=== PATIENT | female | born 1965 | race Caucasian/White ===

== ENCOUNTER 2017-03-12 18:04 | Emergency (ER) | payer OTHER ==
[2017-03-12 18:13] VITALS: BP 175/133
[2017-03-12] MEDS ORDERED: Ketorolac INJ* 60 MG/2 ML VIAL IM ONE (19:08)
[2017-03-12] MEDS ORDERED: HYDROcodone/ACETAMIN 5-325 MG* 1 TAB PO ONE (19:08)
[2017-03-12] MEDS ORDERED: metroNIDAZOLE TAB* 250 MG PO ONE (19:10)
[2017-03-12] MEDS ORDERED: Ciprofloxacin TAB* 500 MG PO ONE (19:10)
--- NOTE | 2017-03-12 19:16 | ED ---
Throat Pain/Nasal Congestion - HPI Summary HPI Summary: Patient presents with dental pain. She was seen at [facility] but due to the extent of her decay they were unable to help other than placing her on arithromycin, which is giving her diarrhea. She is using 800mg of ibuprofen every 4 hours without relief of pain. She was referred to an oral surgeon who she will see in 6 days on March 18 for definitive treatment. She denies fever , chills or drainage. She is able to drink fluids and eat soft foods. - History of Current Complaint Chief Complaint: EDDentalPain Time Seen by Provider: 03/12/17 18:17 Hx Obtained From: Patient Onset/Duration: Gradual Onset, Lasting Weeks, Worse Since - this week Severity: Severe Associated Signs And Symptoms: Positive: Negative Cough: None PMH/Surg Hx/FS Hx/Imm Hx Previously Healthy: Yes Infectious Disease History: No Infectious Disease History: Denies: Traveled Outside the [place] in Last 30 Days - Family History Known Family History: Positive: None - Social History Occupation: Unemployed Lives: With Family Alcohol Use: None Substance Use Type: Reports: None Smoking Status (MU): Current Every Day Smoker Cessation Counseling: Patient Advised to Stop Review of Systems Negative: Fever, Chills Positive: Dental Pain. Negative: Sore Throat, Ear Ache All Other Systems Reviewed And Are Negative: Yes Physical Exam Triage Information Reviewed: Yes Vital Signs On Initial Exam: Initial Vitals Temp Pulse Resp BP Pulse Ox 98.8 F 127 18 175/133 99 03/12/17 18:07 03/12/17 18:07 03/12/17 18:07 03/12/17 18:07 03/12/17 18:07 Vital Signs Reviewed: Yes Appearance: Positive: Well-Appearing, Well-Nourished, Pain Distress Skin: Positive: Warm, Skin Color Reflects Adequate Perfusion, Dry, Soft Head/Face: Positive: Normal Head/Face Inspection Eyes: Positive: EOMI, MARINA, Conjunctiva Clear ENT: Positive: Hearing grossly normal, Pharynx normal, TMs normal Dental: Positive: Percussion Tenderness @ - right lower molar, Gross Decay/ Caries @ Neck: Positive: Supple, Nontender, No Lymphadenopathy Respiratory/Lung Sounds: Positive: Breath Sounds Present Cardiovascular: Positive: RRR Musculoskeletal: Negative: Edema Left, Edema Right Neurological: Positive: Sensory/Motor Intact, Alert, Oriented to Person Place, Time, CN Intact II-III, NV Bundle Intact Distally Psychiatric: Positive: Affect/Mood Appropriate AVPU Assessment: Alert Diagnostics - Vital Signs Vital Signs Temp Pulse Resp BP Pulse Ox 03/12/17 18:07 98.8 F 127 18 175/114 99 - Laboratory Lab Statement: Any lab studies that have been ordered have been reviewed, and results considered in the medical decision making process. EENT Course/Dx - Differential Diagnoses Differential Diagnoses: Dental Abscess, Dental Caries, Fractured Tooth, Gingivitis, Kirk's Angina, Odontogenic Pain, Periodontic Abscess, Periodontic Disease, Peritonsillar Ulcer - Diagnoses Provider Diagnoses: Dental infection Discharge - Discharge Plan Condition: Stable Disposition: HOME Prescriptions: Ciprofloxacin TAB* [Cipro 500 MG TAB*] 500 mg PO BID #13 tab HYDROcodone/ACETAMIN 5-325 MG* [[place] 5-325 TAB*] 1 tab PO Q8H PRN #6 tab MDD 3 PRN Reason: Pain metroNIDAZOLE TAB* [Flagyl 250 mg TAB*] 500 mg PO TID #40 tab Patient Education Materials: Toothache (ED) Additional Instructions: Please stop taking the arithromycin and begin using the cipro and flagyl as prescribed. Continue taking 800mg of ibuprofen only three times daily with meals tomorrow evening. Follow-up with the oral surgeon as directed or return to the emergency department if symptoms worsen.
== END 2017-03-12 19:51 | disposition home or self-care (01) ==
LOC: ED 18:04
DX: K08.89 Other specified disorders of teeth and supporting structures (principal); K04.7 Periapical abscess without sinus; F17.210 Nicotine dependence, cigarettes, uncomplicated
CPT/HCPCS: 96372; 99282; A9270-GY; J1885

== ENCOUNTER 2017-03-26 15:20 | Emergency (ER) | payer OTHER ==
[2017-03-26 16:48] LABS: Urine Bilirubin Negative (Negative); Urine Glucose 1+(50 mg/dL) (Negative); Urine Nitrite Negative (Negative)
[2017-03-26 18:02] LABS: Hematocrit 41 % (35-47); Hemoglobin 13.4 g/dl (12.0-16.0); Mean Corpuscular HGB Conc 33 g/dl (31-36); Mean Corpuscular Hemoglobin 29 pg (27-31); Mean Corpuscular Volume 89 fL (80-97); Mean Platelet Volume 10 um3 (7.4-10.4); Red Blood Count 4.62 10^6/ul (4.0-5.4); Red Cell Distribution Width 14 % (10.5-15)
[2017-03-26] MEDS ORDERED: Ondansetron INJ* 2 MG/ML VIAL IV ONE ×2 (18:12→20:16)
[2017-03-26] MEDS ORDERED: NS 0.9% 1000 ML* 1,000 ML IV ONE (18:12)
[2017-03-26] MEDS ORDERED: HYDROmorphone* 1 MG/ML 1 ML SYR IV ONE ×2 (18:12→20:16)
[2017-03-26 18:24] LABS: BUN/Creatinine Ratio 21.8 (8-20); C Reactive Protein 3.77 mg/L (< 5.00); Calcium 9.1 mg/dL (8.6-10.3); EGFR African American 148.7 (>60); EGFR Non-African American 115.6 (>60); Potassium 4.1 mmol/L (3.5-5.0); Total Bilirubin 0.2 mg/dL (0.2-1.0)
[2017-03-26] MEDS ORDERED: Iohexol 300* (CONTRAST) 10 ML SDV IV ONE (20:07)
[2017-03-26] MEDS ORDERED: Pantoprazole IV* 40 MG IV ONE (20:16)
[2017-03-26] MEDS ORDERED: Iodixanol* (CONTRAST) 320 MG/ML 100 ML SDV IV ONE (20:35)
--- NOTE | 2017-03-26 21:04 | RAD ---
INDICATION: Left upper quadrant abdominal pain. COMPARISON: There are no prior studies available for comparison. TECHNIQUE: A CT scan of the abdomen and pelvis was performed with intravenous and oral contrast following intravenous injection of 74 ml of Visipaque 320 nonionic contrast. Contiguous axial sections were obtained from the lung bases through the symphysis pubis. Images were reconstructed in the coronal and sagittal planes. FINDINGS: There is mild dependent bilateral lower lobe subsegmental atelectasis. No pleural effusion is present. The liver and spleen are normal in size without significant focal abnormality. The patient is status post cholecystectomy. The pancreas appears to be within normal limits. The kidneys and adrenal glands are normal in size. No hydronephrosis is seen. No significant focal renal abnormality is seen. The aorta is normal in caliber and demonstrates homogeneous contrast opacification. No significant enlarged retroperitoneal lymph nodes are seen. The stomach is distended with contrast. The small bowel and colon are nondistended. The appendix is within normal limits. There is mild to moderate descending and sigmoid diverticulosis without evidence for diverticulitis. The patient appears to be status post cholecystectomy. No free intraperitoneal air or fluid is seen. No significant focal osseous abnormality is seen. IMPRESSION: NO EVIDENCE FOR ACUTE FINDING OR CAUSE FOR THE PATIENT'S ABDOMINAL PAIN IS SEEN.
[2017-03-26] MEDS ORDERED: oxyCODONE/Acetamin 5/325 MG* TAB PO ONE ×2 (21:31→23:00)
--- NOTE | 2017-03-26 22:47 | ED ---
Shoaib Car Aidan, scribed for Golden Escobar MD on 03/26/17 at 1925 . Abdominal Pain/Female - HPI Summary HPI Summary: 51 y/o female presents to the ED with a complaint of acute, constant, moderate ( 7/10) LUQ abdominal pain that began 3 days ago. The pain is aggravated by eating and drinking. Advil did not alleviate any of the pain. Associated symptoms include vomiting. Hx of gallbladder removal and hysterectomy. Pt mentions a Zofran and penicillin allergy. - History of Current Complaint Chief Complaint: EDAbdPain Stated Complaint: ABD PAIN,NAUSEA Time Seen by Provider: 03/26/17 17:47 Hx Obtained From: Patient ?: No Onset/Duration: Sudden Onset, Lasting Days, Still Present Timing: Constant Severity Initially: Moderate Severity Currently: Moderate Pain Intensity: 7 Pain Scale Used: 0-10 Numeric Location: Discrete At: LUQ Radiates: No Character: Sharp Aggravating Factor(s): Food - and drinking Alleviating Factor(s): Nothing - advil did not help Associated Signs and Symptoms: Positive: Vomiting Allergies/Adverse Reactions: Allergies Allergy/AdvReac Type Severity Reaction Status Date / Time Penicillins [PCN] Allergy Altered Verified 03/26/17 17:43 Mental Status Sulfa Antibiotics Allergy Hives Verified 03/26/17 17:43 PMH/Surg Hx/FS Hx/Imm Hx Infectious Disease History: No Infectious Disease History: Denies: Traveled Outside the [place] in Last 30 Days - Family History Known Family History: Positive: Hypertension - Social History Occupation: Unemployed Lives: With Family Alcohol Use: None Substance Use Type: Reports: None Smoking Status (MU): Current Every Day Smoker Review of Systems Constitutional: Negative Eyes: Negative ENT: Negative Cardiovascular: Negative Respiratory: Negative Positive: Abdominal Pain, Vomiting. Negative: Diarrhea, Nausea Genitourinary: Negative Musculoskeletal: Negative Skin: Negative Neurological: Negative Psychological: Normal All Other Systems Reviewed And Are Negative: Yes Physical Exam Triage Information Reviewed: Yes Vital Signs On Initial Exam: Initial Vitals Temp Pulse Resp BP Pulse Ox 97.7 F 92 18 170/91 100 03/26/17 15:22 03/26/17 15:22 03/26/17 15:22 03/26/17 15:22 03/26/17 15:22 Vital Signs Reviewed: Yes Appearance: Positive: Well-Appearing, No Pain Distress Skin: Positive: Warm, Skin Color Reflects Adequate Perfusion, Dry Head/Face: Positive: Normal Head/Face Inspection Eyes: Positive: Normal ENT: Positive: Normal ENT inspection Neck: Positive: Supple, Nontender Respiratory/Lung Sounds: Positive: Clear to Auscultation, Breath Sounds Present Cardiovascular: Positive: RRR Abdomen Description: Negative: Nontender - tender in epigastrium Bowel Sounds: Positive: Present Musculoskeletal: Positive: Normal Neurological: Positive: Normal Psychiatric: Positive: Affect/Mood Appropriate - [place] Coma Scale Coma Scale Total: 15 Diagnostics - Vital Signs Vital Signs Temp Pulse Resp BP Pulse Ox 03/26/17 18:41 20 03/26/17 18:00 88 100 03/26/17 17:45 84 99 03/26/17 17:43 159/90 03/26/17 17:42 98.3 F 81 18 159/90 99 03/26/17 16:58 97.7 F 86 18 140/96 100 03/26/17 15:22 97.7 F 92 18 170/91 100 - Laboratory Lab Results: Lab Results 03/26/17 03/26/17 03/26/17 Range/Units 16:40 17:50 17:50 WBC 9.0 (3.5-10.8) 10^3/ul RBC 4.62 (4.0-5.4) 10^6/ul Hgb 13.4 (12.0-16.0) g/dl Hct 41 (35-47) % MCV 89 (80-97) fL MCH 29 (27-31) pg MCHC 33 (31-36) g/dl RDW 14 (10.5-15) % Plt Count 213 (150-450) 10^3/ul MPV 10 (7.4-10.4) um3 Neut % (Auto) 71.4 (38-83) % Lymph % (Auto) 22.3 L (25-47) % Nolan % (Auto) 4.8 (1-9) % Eos % (Auto) 0.7 (0-6) % Baso % (Auto) 0.8 (0-2) % Absolute Neuts (auto) 6.4 (1.5-7.7) 10^3/ul Absolute Lymphs (auto) 2.0 (1.0-4.8) 10^3/ul Absolute Monos (auto) 0.4 (0-0.8) 10^3/ul Absolute Eos (auto) 0.1 (0-0.6) 10^3/ul Absolute Basos (auto) 0.1 (0-0.2) 10^3/ul Absolute Nucleated RBC 0.01 10^3/ul Nucleated RBC % 0.1 Sodium 140 (133-145) mmol/L Potassium 4.1 (3.5-5.0) mmol/L Chloride 109 (101-111) mmol/L Carbon Dioxide 24 (22-32) mmol/L Anion Gap 7 (2-11) mmol/L BUN 12 (6-24) mg/dL Creatinine 0.55 (0.51-0.95) mg/dL Est GFR ( Amer) 148.7 (>60) Est GFR (Non-Af Amer) 115.6 (>60) BUN/Creatinine Ratio 21.8 H (8-20) Glucose 210 H (70-100) mg/dL Lactic Acid (0.5-2.0) mmol/L Calcium 9.1 (8.6-10.3) mg/dL Total Bilirubin 0.20 (0.2-1.0) mg/dL AST 11 L (13-39) U/L ALT 14 (7-52) U/L Alkaline Phosphatase 97 (34-104) U/L C-Reactive Protein 3.77 (< 5.00) mg/L Total Protein 7.0 (6.4-8.9) g/dL Albumin 4.0 (3.2-5.2) g/dL Globulin 3.0 (2-4) g/dL Albumin/Globulin Ratio 1.3 (1-3) Lipase 78 (11.0-82.0) U/L Urine Color Yellow Urine Appearance Clear Urine pH 8.0 (5-9) Ur Specific Carlton 1.013 (1.010-1.030) Urine Protein Negative (Negative) Urine Ketones Negative (Negative) Urine Blood Negative (Negative) Urine Nitrate Negative (Negative) Urine Bilirubin Negative (Negative) Urine Urobilinogen Negative (Negative) Ur Leukocyte Esterase Negative (Negative) Urine Glucose 1+(50 mg/dl) H (Negative) 03/26/17 Range/Units 17:50 WBC (3.5-10.8) 10^3/ul RBC (4.0-5.4) 10^6/ul Hgb (12.0-16.0) g/dl Hct (35-47) % MCV (80-97) fL MCH (27-31) pg MCHC (31-36) g/dl RDW (10.5-15) % Plt Count (150-450) 10^3/ul MPV (7.4-10.4) um3 Neut % (Auto) (38-83) % Lymph % (Auto) (25-47) % Nolan % (Auto) (1-9) % Eos % (Auto) (0-6) % Baso % (Auto) (0-2) % Absolute Neuts (auto) (1.5-7.7) 10^3/ul Absolute Lymphs (auto) (1.0-4.8) 10^3/ul Absolute Monos (auto) (0-0.8) 10^3/ul Absolute Eos (auto) (0-0.6) 10^3/ul Absolute Basos (auto) (0-0.2) 10^3/ul Absolute Nucleated RBC 10^3/ul Nucleated RBC % Sodium (133-145) mmol/L Potassium (3.5-5.0) mmol/L Chloride (101-111) mmol/L Carbon Dioxide (22-32) mmol/L Anion Gap (2-11) mmol/L BUN (6-24) mg/dL Creatinine (0.51-0.95) mg/dL Est GFR ( Amer) (>60) Est GFR (Non-Af Amer) (>60) BUN/Creatinine Ratio (8-20) Glucose (70-100) mg/dL Lactic Acid 1.8 (0.5-2.0) mmol/L Calcium (8.6-10.3) mg/dL Total Bilirubin (0.2-1.0) mg/dL AST (13-39) U/L ALT (7-52) U/L Alkaline Phosphatase (34-104) U/L C-Reactive Protein (< 5.00) mg/L Total Protein (6.4-8.9) g/dL Albumin (3.2-5.2) g/dL Globulin (2-4) g/dL Albumin/Globulin Ratio (1-3) Lipase (11.0-82.0) U/L Urine Color Urine Appearance Urine pH (5-9) Ur Specific Carlton (1.010-1.030) Urine Protein (Negative) Urine Ketones (Negative) Urine Blood (Negative) Urine Nitrate (Negative) Urine Bilirubin (Negative) Urine Urobilinogen (Negative) Ur Leukocyte Esterase (Negative) Urine Glucose (Negative) Result Diagrams: 03/26/17 17:50 03/26/17 17:50 Lab Statement: Any lab studies that have been ordered have been reviewed, and results considered in the medical decision making process. - EKG EKG 1638 Cardiac Rate: NL - 83 BPM EKG Rhythm: Sinus Rhythm EKG Interpretation: SINUS RHYTHM Abdominal Pain Fem Course/Dx - Course Course Of Treatment: This is a 51 y/o female with tenderness in the epigastrium who reports LUQ adbominal pain and vomiting. No source for the pain was identified with labs and CT. I will treat her symptomatically and encourage close F/U. - Diagnoses Provider Diagnoses: Abdominal pain Discharge - Discharge Plan Condition: Stable Disposition: HOME Discharge Disposition Comment: Please follow up with your primary care provider within 2 days. Prescriptions: oxyCODONE/Acetamin 5/325 MG* [Percocet 5/325 TAB*] 1 tab PO Q6H PRN #20 tab MDD 4 PRN Reason: Pain Patient Education Materials: Abdominal Pain (ED) Referrals: No Primary Care Phys,NOPCP [Primary Care Provider] - The documentation as recorded by the Shoaib phan Aidan accurately reflects the service I personally performed and the decisions made by me, Golden Escobar MD.
[2017-03-26 23:18] VITALS: BP 168/92
== END 2017-03-26 23:15 | disposition home or self-care (01) ==
LOC: ED 15:20
DX: R10.12 Left upper quadrant pain (principal); F17.210 Nicotine dependence, cigarettes, uncomplicated; R11.10 Vomiting, unspecified
CPT/HCPCS: 36415; 74177; 80053; 81003; 83605; 83690; 85025; 86140; 93005; 96361; 96374; 96375; 99284; A9270-GY; J1170; J2405; Q9967

== ENCOUNTER 2017-04-09 21:30 | Emergency (ER) | payer OTHER ==
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
[2017-04-10 00:07] LABS: Urine Bacteria 1+ (Absent); Urine Bilirubin Negative (Negative); Urine Glucose 3+(>=500 mg/dL) (Negative); Urine Nitrite Negative (Negative)
[2017-04-10] MEDS ORDERED: Ondansetron ODT TAB* 4 MG SL ONE (00:09)
[2017-04-10] MEDS ORDERED: Ketorolac INJ* 60 MG/2 ML VIAL IM ONE (00:09)
[2017-04-10 01:40] VITALS: BP 125/77
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
== END 2017-04-10 01:40 | disposition home or self-care (01) ==
LOC: ED 21:30
DX: R51 Headache (principal); R31.9 Hematuria, unspecified; M54.9 Dorsalgia, unspecified; F17.210 Nicotine dependence, cigarettes, uncomplicated; T14.8 Other injury of unspecified body region; V49.9XXA Car occupant (driver) (passenger) injured in unspecified traffic accident, initial encounter; Y93.9 Activity, unspecified; Y92.9 Unspecified place or not applicable
CPT/HCPCS: 70450; 72170; 76775; 81003; 81015; 87086; 96372; 99282; A9270-GY; J1885

== ENCOUNTER → 2017-05-23 11:25 | Emergency (ER) | payer OTHER ==
[~2017-05-23 11:25] MED LIST: Ciprofloxacin 400MG IVPREMIX(* 400 MG/200 ML BAG IVPB ONE; HYDROmorphone* 1 MG/ML 1 ML SYR IV ONE; HYDROmorphone* 1 MG/ML 1 ML SYR IV SLOW PU ONE; HYDROmorphone* 1 MG/ML 1 ML SYR ONE; Ketorolac INJ* 30 MG/ML 1 ML VIAL IV ONE; NS 0.9% 1000 ML* 1,000 ML IV ONE; Ondansetron INJ* 2 MG/ML VIAL IV ONE; Phenazopyridine TAB* 100 MG PO ONE
--- NOTE | 2017-05-23 12:12 | RAD ---
INDICATION: Right flank pain. COMPARISON: Comparison is made with a prior CT of the abdomen and pelvis from March 26, 2017. TECHNIQUE: A CT scan of the abdomen and pelvis was performed without intravenous or oral contrast. Contiguous axial sections were obtained from the lung bases through the symphysis pubis. Images were reconstructed in the coronal and sagittal planes. FINDINGS: Images through the lung bases demonstrate a small 0.6 cm calcified nodule in the right lower lobe consistent with old granulomatous disease. The lung bases are otherwise clear. No pleural effusion is present. The liver and spleen are normal in size without significant focal abnormality. The patient is status post cholecystectomy. The pancreas appears to be within normal limits. The adrenal glands and kidneys are normal in size. No renal calculi or hydronephrosis is seen. There are multiple calcifications present bilaterally within the pelvis limiting the study although no definite ureteral or bladder calculi are seen. The aorta is normal in caliber without significant calcific plaque. No significant enlarged retroperitoneal lymph nodes are seen. The stomach is mildly distended with food debris. The small bowel and colon appear nondistended. The appendix is within normal limits. There is mild to moderate descending and sigmoid diverticulosis without evidence for diverticulitis. The patient appears to be status post hysterectomy. No free intraperitoneal air or fluid is seen. No significant focal osseous abnormality is seen. IMPRESSION: 1. NO EVIDENCE FOR ACUTE FINDING OR CAUSE FOR THE PATIENT'S ABDOMINAL PAIN IS SEEN. 2. STATUS POST CHOLECYSTECTOMY.
[2017-05-23 12:29] LABS: Hematocrit 37 % (35-47); Hemoglobin 12.4 g/dl (12.0-16.0); Mean Corpuscular HGB Conc 34 g/dl (31-36); Mean Corpuscular Hemoglobin 30 pg (27-31); Mean Corpuscular Volume 89 fL (80-97); Mean Platelet Volume 9 um3 (7.4-10.4); Red Blood Count 4.13 10^6/ul (4.0-5.4); Red Cell Distribution Width 13 % (10.5-15); White Blood Count 5.3 10^3/ul (3.5-10.8)
[2017-05-23 12:37] LABS: Urine Bacteria 1+ (Absent); Urine Bilirubin Negative (Negative); Urine Glucose 3+(>=500 mg/dL) (Negative); Urine Nitrite Negative (Negative)
[2017-05-23 12:45] LABS: Albumin 3.9 g/dL (3.2-5.2); BUN/Creatinine Ratio 22.6 (8-20); C Reactive Protein 5.07 mg/L (< 5.00); Calcium 9.1 mg/dL (8.6-10.3); EGFR African American 129.5 (>60); EGFR Non-African American 100.7 (>60); Globulin 3.1 g/dL (2-4); Potassium 3.7 mmol/L (3.5-5.0); Total Bilirubin 0.3 mg/dL (0.2-1.0)
[2017-05-23 16:46] VITALS: BP 166/93
--- NOTE | 2017-05-23 18:32 | ED ---
Cheyanne Car Alok, scribed for Golden Escobar MD on 05/23/17 at 1146 . Abdominal Pain/Female - HPI Summary HPI Summary: 51F presents to the ED with right flank pain. Pt states what began as back pain yesterday has transitioned to right flank pain. Her pain is worsened with sitting and improves when standing. Pt has been taking Tylenol for pain. Pt denies dysuria and states her BM have been normal. Pt has h/o kidney stones and states her pain feels similar to that. PSHx includes a hysterectomy and cholecystectomy. Pt notes she is scheduled for surgery to remove an angular of the left lung in three days. - History of Current Complaint Chief Complaint: EDFlankPain Stated Complaint: RT FLANK PAIN Time Seen by Provider: 05/23/17 11:34 Hx Obtained From: Patient Onset/Duration: Lasting Days, Still Present Timing: Constant Severity Initially: Moderate Severity Currently: Moderate Pain Intensity: 7 Pain Scale Used: 0-10 Numeric Location: Flank Aggravating Factor(s): Other: - Sitting position Alleviating Factor(s): Position, OTC Analgesics - Tylenol Associated Signs and Symptoms: Negative: Fever, Constipation, Urinary Symptoms Allergies/Adverse Reactions: Allergies Allergy/AdvReac Type Severity Reaction Status Date / Time Metoclopramide [From Reglan] Allergy Unknown Verified 04/09/17 21:41 Reaction Details Penicillins [PCN] Allergy Altered Verified 03/26/17 17:43 Mental Status Sulfa Antibiotics Allergy Hives Verified 03/26/17 17:43 PMH/Surg Hx/FS Hx/Imm Hx Endocrine/Hematology History: Reports: Hx Diabetes Sensory History: Denies: Hx Legally Blind, Hx Deafness Opthamlomology History: Denies: Hx Legally Blind - Surgical History Surgery Procedure, Year, and Place: cholecystectomy and right knee surgery Infectious Disease History: Denies: Traveled Outside the [place] in Last 30 Days - Family History Known Family History: Positive: Hypertension - Social History Occupation: Unemployed Lives: With Family Alcohol Use: None Substance Use Type: Reports: None Smoking Status (MU): Current Every Day Smoker Review of Systems Negative: Fever Positive: flank pain. Negative: dysuria All Other Systems Reviewed And Are Negative: Yes Physical Exam Triage Information Reviewed: Yes Vital Signs On Initial Exam: Initial Vitals Temp Pulse Resp BP Pulse Ox 97.1 F 110 17 174/90 98 05/23/17 11:27 05/23/17 11:27 05/23/17 11:27 05/23/17 11:27 05/23/17 11:27 Vital Signs Reviewed: Yes Appearance: Positive: Well-Appearing, No Pain Distress Skin: Positive: Warm, Skin Color Reflects Adequate Perfusion, Dry Head/Face: Positive: Normal Head/Face Inspection Eyes: Positive: Normal ENT: Positive: Normal ENT inspection Neck: Positive: Supple, Nontender Respiratory/Lung Sounds: Positive: Clear to Auscultation, Breath Sounds Present Cardiovascular: Positive: RRR Abdomen Description: Positive: Soft, Other: - Right flank tenderness Bowel Sounds: Positive: Present Musculoskeletal: Positive: Normal Neurological: Positive: Normal Psychiatric: Positive: Normal, Affect/Mood Appropriate Diagnostics - Vital Signs Vital Signs Temp Pulse Resp BP Pulse Ox 05/23/17 11:27 97.1 F 110 17 174/90 98 - Laboratory Lab Results: Lab Results 05/23/17 05/23/17 05/23/17 Range/Units 12:00 12:00 12:00 WBC 5.3 (3.5-10.8) 10^3/ul RBC 4.13 (4.0-5.4) 10^6/ul Hgb 12.4 (12.0-16.0) g/dl Hct 37 (35-47) % MCV 89 (80-97) fL MCH 30 (27-31) pg MCHC 34 (31-36) g/dl RDW 13 (10.5-15) % Plt Count 195 (150-450) 10^3/ul MPV 9 (7.4-10.4) um3 Neut % (Auto) 74.9 (38-83) % Lymph % (Auto) 19.3 L (25-47) % [place] % (Auto) 4.0 (1-9) % Eos % (Auto) 1.1 (0-6) % Baso % (Auto) 0.7 (0-2) % Absolute Neuts (auto) 3.9 (1.5-7.7) 10^3/ul Absolute Lymphs (auto) 1.0 (1.0-4.8) 10^3/ul Absolute Monos (auto) 0.2 (0-0.8) 10^3/ul Absolute Eos (auto) 0.1 (0-0.6) 10^3/ul Absolute Basos (auto) 0 (0-0.2) 10^3/ul Absolute Nucleated RBC 0 10^3/ul Nucleated RBC % 0.1 Sodium 136 (133-145) mmol/L Potassium 3.7 (3.5-5.0) mmol/L Chloride 105 (101-111) mmol/L Carbon Dioxide 27 (22-32) mmol/L Anion Gap 4 (2-11) mmol/L BUN 14 (6-24) mg/dL Creatinine 0.62 (0.51-0.95) mg/dL Est GFR ( Amer) 129.5 (>60) Est GFR (Non-Af Amer) 100.7 (>60) BUN/Creatinine Ratio 22.6 H (8-20) Glucose 366 H (70-100) mg/dL Lactic Acid (0.5-2.0) mmol/L Calcium 9.1 (8.6-10.3) mg/dL Total Bilirubin 0.30 (0.2-1.0) mg/dL AST 15 (13-39) U/L ALT 20 (7-52) U/L Alkaline Phosphatase 94 (34-104) U/L C-Reactive Protein 5.07 H (< 5.00) mg/L Total Protein 7.0 (6.4-8.9) g/dL Albumin 3.9 (3.2-5.2) g/dL Globulin 3.1 (2-4) g/dL Albumin/Globulin Ratio 1.3 (1-3) Lipase 51 (11.0-82.0) U/L Urine Color Yellow Urine Appearance Cloudy Urine pH 6.0 (5-9) Ur Specific [place] 1.024 (1.010-1.030) Urine Protein Negative (Negative) Urine Ketones Negative (Negative) Urine Blood 3+ H (Negative) Urine Nitrate Negative (Negative) Urine Bilirubin Negative (Negative) Urine Urobilinogen Negative (Negative) Ur Leukocyte Esterase Negative (Negative) Urine WBC (Auto) 2+(11-20/hpf) H (Absent) Urine RBC (Auto) 3+(>10/hpf) H (Absent) Ur Squamous Epith Cells Present H (Absent) Urine Bacteria 1+ H (Absent) Urine Glucose 3+(>=500 mg/dl) H (Negative) 06/25/17 Range/Units 12:00 WBC (3.5-10.8) 10^3/ul RBC (4.0-5.4) 10^6/ul Hgb (12.0-16.0) g/dl Hct (35-47) % MCV (80-97) fL MCH (27-31) pg MCHC (31-36) g/dl RDW (10.5-15) % Plt Count (150-450) 10^3/ul MPV (7.4-10.4) um3 Neut % (Auto) (38-83) % Lymph % (Auto) (25-47) % [place] % (Auto) (1-9) % Eos % (Auto) (0-6) % Baso % (Auto) (0-2) % Absolute Neuts (auto) (1.5-7.7) 10^3/ul Absolute Lymphs (auto) (1.0-4.8) 10^3/ul Absolute Monos (auto) (0-0.8) 10^3/ul Absolute Eos (auto) (0-0.6) 10^3/ul Absolute Basos (auto) (0-0.2) 10^3/ul Absolute Nucleated RBC 10^3/ul Nucleated RBC % Sodium (133-145) mmol/L Potassium (3.5-5.0) mmol/L Chloride (101-111) mmol/L Carbon Dioxide (22-32) mmol/L Anion Gap (2-11) mmol/L BUN (6-24) mg/dL Creatinine (0.51-0.95) mg/dL Est GFR ( Amer) (>60) Est GFR (Non-Af Amer) (>60) BUN/Creatinine Ratio (8-20) Glucose (70-100) mg/dL Lactic Acid 2.0 (0.5-2.0) mmol/L Calcium (8.6-10.3) mg/dL Total Bilirubin (0.2-1.0) mg/dL AST (13-39) U/L ALT (7-52) U/L Alkaline Phosphatase (34-104) U/L C-Reactive Protein (< 5.00) mg/L Total Protein (6.4-8.9) g/dL Albumin (3.2-5.2) g/dL Globulin (2-4) g/dL Albumin/Globulin Ratio (1-3) Lipase (11.0-82.0) U/L Urine Color Urine Appearance Urine pH (5-9) Ur Specific [place] (1.010-1.030) Urine Protein (Negative) Urine Ketones (Negative) Urine Blood (Negative) Urine Nitrate (Negative) Urine Bilirubin (Negative) Urine Urobilinogen (Negative) Ur Leukocyte Esterase (Negative) Urine WBC (Auto) (Absent) Urine RBC (Auto) (Absent) Ur Squamous Epith Cells (Absent) Urine Bacteria (Absent) Urine Glucose (Negative) Result Diagrams: 05/23/17 12:00 05/23/17 12:00 Lab Statement: Any lab studies that have been ordered have been reviewed, and results considered in the medical decision making process. - CT Abd/Pel CT CT Interpretation: Positive (See Comments) - IMPRESSION: 1. NO EVIDENCE FOR ACUTE FINDING OR CAUSE FOR THE PATIENT'S ABDOMINAL PAIN IS SEEN. 2. STATUS POST CHOLECYSTECTOMY. CT Interpretation Completed By: Radiologist Abdominal Pain Fem Course/Dx - Course Course Of Treatment: Ms. Simpson presented C/O severe right flank pain for about a day which started as back pain aind is now more in the front. She has a history of kidney stones and is concerned that this may be another. Her CT was negative and she had an infected urine. This seemed to me to be a pyelonephritis and I gave her fluids, antibiotics and pain medications. - Diagnoses Provider Diagnoses: Pyelonephritis Discharge - Discharge Plan Condition: Stable Disposition: HOME Prescriptions: Ciprofloxacin TAB* [Cipro Tab*] 500 mg PO BID #20 tab Patient Education Materials: Kidney Infection (ED) Referrals: Non Staff,Doctor [Primary Care Provider] - Additional Instructions: Please follow up with your primary care provider in 1-2 days. The documentation as recorded by the Cheyanne phan Alok accurately reflects the service I personally performed and the decisions made by me, Golden Escobar MD.
== END | disposition home or self-care (01) ==
LOC: ED 11:25
DX: N12 Tubulo-interstitial nephritis, not specified as acute or chronic (principal); R10.84 Generalized abdominal pain; F17.210 Nicotine dependence, cigarettes, uncomplicated
CPT/HCPCS: 36415; 74176; 80053; 81003; 81015; 83605; 83690; 85025; 86140; 87086; 96374; 96375; 99283; A9270-GY; J0744; J1170; J1885; J2405

== ENCOUNTER 2017-09-29 20:16 | Emergency (ER) | payer OTHER ==
[2017-09-29] MEDS ORDERED: Ketorolac INJ* 30 MG/ML 1 ML VIAL IM ONE (23:38)
[2017-09-29] MEDS ORDERED: Dexamethasone IV* 4 MG/ML 1 ML (4 MG) IM ONE (23:38)
[2017-09-29] MEDS ORDERED: HYDROcodone/ACETAMIN 5-325 MG* 1 TAB PO ONE (23:38)
[2017-09-29] MEDS ORDERED: Orphenadrine Citrate IV* 30 MG/ML 2 ML VIAL IM ONE (23:38)
--- NOTE | 2017-09-30 00:10 | ED ---
Back Pain - HPI Summary HPI Summary: 52 female presents to ED with complaints of sciatica flare/low back pain radiating down left leg and rash on back. Patient states rash was ~ 1 week ago and sciatica 2-3 days ago. Patient has had previous episodes of sciatica. Took ibuprofen, naproxen and tylenol without relief. States it is causing her to be off balance due to the pain. Denies weakness, numbness/tingling, saddle anesthesia, and bladder/bowel incontinence. Typical sciatica like pain. Also having anxiety from the pain. Patient also complains of an itchy rash on her back that began 1 week ago. No drainage, and states it reminds her of acne. No other rash elsewhere. No other complaints. No PMHx other than DM, HTN and high cholesterol. No recent trauma, injury, new soap, lotion or detergent. - History of Current Complaint Chief Complaint: EDGeneral Stated Complaint: RASH ON BACK Time Seen by Provider: 09/29/17 22:04 Hx Obtained From: Patient Onset/Duration: Sudden Onset, Lasting Days, Lasting Weeks, Still Present, Worse Since Onset/Duration: Started Days Ago, Still Present Back Pain Location: Is Discrete @ - low back left side and left leg Severity Initially: Mild Severity Currently: Moderate Pain Intensity: 6 Pain Scale Used: 0-10 Numeric Character: Sharp, Aching, Spasmodic Aggravating Symptom(s): Movement, Other - sitting Alleviating Symptom(s): Rest, Nothing Associated Signs And Symptoms: Positive: Negative. Negative: Swelling, Bruising , Weakness, Numbness, Tingling, Abdominal Pain, Flank Pain, Bladder Incontinence , Bowel Incontinence - Risk Factors AAA Risk Factors: Smoking, Hypertension, Atherosclerosis TAD Risk Factors: Smoking Cauda Equina Risk Factors: Negative Epidural Abscess Risk Factors: Negative - Allergies/Home Medications Allergies/Adverse Reactions: Allergies Allergy/AdvReac Type Severity Reaction Status Date / Time Metoclopramide [From Reglan] Allergy Unknown Verified 04/09/17 21:41 Reaction Details Penicillins [PCN] Allergy Altered Verified 03/26/17 17:43 Mental Status Sulfa Antibiotics Allergy Hives Verified 03/26/17 17:43 PMH/Surg Hx/FS Hx/Imm Hx Endocrine/Hematology History: Reports: Hx Diabetes Cardiovascular History: Reports: Hx Hypercholesterolemia, Hx Hypertension Respiratory History: Denies: Hx Asthma Musculoskeletal History: Reports: Hx Arthritis, Other Musculoskeletal History - sciatica Sensory History: Denies: Hx Legally Blind, Hx Deafness Opthamlomology History: Denies: Hx Legally Blind - Surgical History Surgery Procedure, Year, and Place: cholecystectomy and right knee surgery - Immunization History Immunizations Up to Date: Yes Infectious Disease History: No Infectious Disease History: Denies: Traveled Outside the [place] in Last 30 Days - Family History Known Family History: Positive: None, Hypertension - Social History Alcohol Use: None Substance Use Type: Reports: None Smoking Status (MU): Current Every Day Smoker Review of Systems Constitutional: Negative Cardiovascular: Negative Respiratory: Negative Gastrointestinal: Negative Positive: Arthralgia, Myalgia - low back Positive: Rash Neurological: Negative Positive: Anxious All Other Systems Reviewed And Are Negative: Yes Physical Exam Triage Information Reviewed: Yes Vital Signs On Initial Exam: Initial Vitals Temp Pulse Resp BP Pulse Ox 98 F 98 18 162/88 92 09/29/17 20:53 09/29/17 20:53 09/29/17 20:53 09/29/17 20:53 09/29/17 20:53 Vital Signs Reviewed: Yes Appearance: Positive: Well-Appearing, Well-Nourished, Pain Distress - moderate Skin: Positive: Warm, Skin Color Reflects Adequate Perfusion, Dry, Erythema @ - erythematous pustules diffuse scattered and raised on back and under breasts appears like staph. some with white colored center, no drainage. rest of skin exam normal. Negative: Cold, Tender, Cyanosis @, Diaphoretic Head/Face: Positive: Normal Head/Face Inspection Eyes: Positive: Conjunctiva Clear ENT: Positive: Hearing grossly normal Neck: Positive: Supple, Nontender Respiratory/Lung Sounds: Positive: Clear to Auscultation, Breath Sounds Present. Negative: Rales, Rhonchi, Wheezes Cardiovascular: Positive: Normal, RRR, Pulses are Symmetrical in both Upper and Lower Extremities - 2+ radial/pedal. Negative: Murmur, Rub Abdomen Description: Positive: Nontender, No Organomegaly, Soft. Negative: CVA Tenderness (R), CVA Tenderness (L), Peritoneal Signs Bowel Sounds: Positive: Present Musculoskeletal: Positive: Normal, Limited @ - with flexion left LE due to pain however able and strength 5/5. rest of strength/ROM normal and intact, Pain @ - palpation left lower lumbar spine L2-L5 radiating down into left gluteal region and down left LE, Other - no crepitus edema or ecchymosis. Negative: Interruption @, Edema Left, Edema Right Neurological: Positive: Normal, Sensory/Motor Intact, Alert, Oriented to Person Place, Time, CN Intact II-III, Reflexes Intact, NV Bundle Intact Distally, Normal Gait - off balance due to pain and favoring right side however improved once pain under control - [place] Coma Scale Coma Scale Total: 15 Diagnostics - Vital Signs Vital Signs Temp Pulse Resp BP Pulse Ox 09/29/17 20:53 98 F 98 18 162/88 92 - Laboratory Lab Statement: Any lab studies that have been ordered have been reviewed, and results considered in the medical decision making process. Re-Evaluation - Re-Evaluation First Eval Re-Evaluation Time: 00:31 Change: Improved - had relief after medication Back Pain Course/Dx - Course Course Of Treatment: due to known sciatica and no new injury/trauma no imaging was required at this time. pain was treated and patient had significant relief. rash appears to be staph. will treat with keflex and good hygeine. culture pending. follow up with pcp. aware of worsening signs and symptoms and to return if occur. will send home with pain management. no concern for any other emergent etiology at this time. - Diagnoses Differential Diagnosis/HQI/PQRI: Positive: Strain, Sprain, Other - sciatica, dermatitis, acne vulgaris, staph infection, MRSA Provider Diagnoses: Staph skin infection, Sciatica Discharge - Discharge Plan Condition: Stable Disposition: HOME Prescriptions: Cephalexin CAP* [Keflex CAP*] 500 mg PO TID #30 cap HYDROcodone/ACETAMIN 5-325 MG* [[place] 5-325 TAB*] 1 tab PO Q4H PRN #15 tab MDD 3 PRN Reason: Pain Methocarbamol TAB* [Robaxin 500 MG TAB*] 500 mg PO TID PRN #20 tab PRN Reason: Spasms predniSONE TAB* [Deltasone TAB*] 20 mg PO DAILY #1 tab Patient Education Materials: Sciatica (ED), Lower Back Exercises (ED), Dermatitis (ED), Acne (ED) Referrals: Ceasar Leigh MD [Primary Care Provider] - Additional Instructions: Take prescribed medication to help with pain and rash. Supplement with naproxen only as needed every 6-12 hours. Rest, apply heat/ice. Stretches, slowly, using pain as your guide. Good hygiene for rash. Avoid scratching. Wash hands frequently. You will hear about culture results if positive and once obtained. Follow up with PCP. Any new or worsening symptoms please seek medical attention promptly.
[2017-09-30 00:47] VITALS: BP 99/74
== END 2017-09-30 00:46 | disposition home or self-care (01) ==
LOC: ED 20:16
DX: L08.9 Local infection of the skin and subcutaneous tissue, unspecified (principal); B95.8 Unspecified staphylococcus as the cause of diseases classified elsewhere; M54.42 Lumbago with sciatica, left side; E11.9 Type 2 diabetes mellitus without complications; I10 Essential (primary) hypertension; E78.00 Pure hypercholesterolemia, unspecified; Z88.2 Allergy status to sulfonamides; Z88.0 Allergy status to penicillin; F17.200 Nicotine dependence, unspecified, uncomplicated
CPT/HCPCS: 87070; 87205; 96372; 99282; J1100; J1885; J2360

== ENCOUNTER 2018-08-28 21:58 | Emergency (ER) | payer OTHER ==
--- NOTE | 2018-08-28 23:09 | ED ---
GI/ HPI - HPI Summary HPI Summary: Pt. is a 53 y.o female who presents to the ER for vaginal itching and irritation x 2 weeks. Pt. is an insulin dependent diabetic. Pt. states she has been using OTC vagisil without relief. She also notes low back spasms. She denies fever, chills, abd. pain, N/V. Pt. also notes she currently does not have a PCP because she disagreed with her last PCP. Pt. states she does currently have insulin. Symptoms are mild in severity. Urinating and touching affected area makes symptoms worse. Nothing makes symptoms better. - History of Current Complaint Chief Complaint: EDUrogenitalProblems Time Seen by Provider: 08/28/18 22:40 Stated Complaint: ABD PAIN Hx Obtained From: Patient Pain Intensity: 4 - Allergy/Home Medications Allergies/Adverse Reactions: Allergies Allergy/AdvReac Type Severity Reaction Status Date / Time metoclopramide Allergy Unknown Unknown Verified 08/28/18 23:27 Reaction Details Sulfa (Sulfonamide Allergy Unknown Hives Verified 08/28/18 23:27 Antibiotics) Penicillins AdvReac Unknown Altered Verified 08/28/18 23:28 Mental Status PMH/Surg Hx/FS Hx/Imm Hx Previously Healthy: Yes Endocrine/Hematology History: Reports: Hx Diabetes Cardiovascular History: Reports: Hx Hypercholesterolemia, Hx Hypertension Respiratory History: Denies: Hx Asthma Musculoskeletal History: Reports: Hx Arthritis, Other Musculoskeletal History - sciatica Sensory History: Denies: Hx Legally Blind, Hx Deafness Opthamlomology History: Denies: Hx Legally Blind - Surgical History Surgery Procedure, Year, and Place: cholecystectomy and right knee surgery Infectious Disease History: No Infectious Disease History: Denies: Traveled Outside the [place] in Last 30 Days - Family History Known Family History: Positive: None, Hypertension - Social History Occupation: Unemployed Lives: With Family Alcohol Use: None Substance Use Type: Reports: None Smoking Status (MU): Current Every Day Smoker Review of Systems Constitutional: Negative Negative: Fever, Chills Gastrointestinal: Negative Negative: Abdominal Pain, Vomiting, Nausea Positive: other - vaginal itching Positive: Other - low back spams All Other Systems Reviewed And Are Negative: Yes Physical Exam Triage Information Reviewed: Yes Vital Signs On Initial Exam: Initial Vitals Temp Pulse Resp BP Pulse Ox 97.4 F 98 15 146/95 96 08/28/18 22:03 08/28/18 22:03 08/28/18 22:03 08/28/18 22:03 08/28/18 22:03 Vital Signs Reviewed: Yes Appearance: Positive: Well-Appearing - Pt. lying in bed in NAD. Skin: Positive: Warm, Dry Head/Face: Positive: Normal Head/Face Inspection Eyes: Positive: Normal, EOMI Neck: Positive: Supple Pelvic Exam: Positive: Other - Genital exam: Exam performed with female tech in room. Labia major bilaterally is erythematous and edematous. Very tender. Satellite lesions noted. No induration or fluctuance. Neurological: Positive: Normal, CN Intact II-III Psychiatric: Positive: Affect/Mood Appropriate Diagnostics - Vital Signs Vital Signs Temp Pulse Resp BP Pulse Ox 08/28/18 22:03 97.4 F 98 15 146/95 96 - Laboratory Lab Statement: Any lab studies that have been ordered have been reviewed, and results considered in the medical decision making process. GIGU Course/Dx - Course Course Of Treatment: Patient's exam is consistent with a yeast infection. Urinalysis is negative for infection but does show large glucose. Patient was given information on discharge patient's for the [facility] and the physician referral line and is to call tomorrow to schedule an appointment with PCP. She was given a dose of Diflucan and clotrimazole cream in the ER. Prescriptions provided. Advised to keep area clean and dry. To return to the ER symptoms change or worsen. - Diagnoses Differential Diagnoses - Female: Herpes, Urinary Tract Infection, Vaginitis Provider Diagnoses: Vaginal candidiasis Discharge - Sign-Out/Discharge Documenting (check all that apply): Patient Departure - Discharge Plan Condition: Good Disposition: HOME Prescriptions: Clotrimazole 1% VAGINAL CREAM* [Gyne-Lotrimin 1% VAGINAL CREAM*] 1 applic VAGINAL BID #60 tube Fluconazole [Diflucan 150 MG (NF)] 150 mg PO ONCE #1 tab Patient Education Materials: Yeast Infection (ED) Referrals: [facility] [Outside] [facility] [Outside] Additional Instructions: Schedule a follow up appointment with the [facility] Use cream as directed Take second diflucan pill on 08/31/18 Keep vaginal area clean and dry Return to ER if symptoms change or worsen - Billing Disposition and Condition Condition: GOOD Disposition: Home
[2018-08-28] MEDS ORDERED: Fluconazole 100 MG TAB* TAB PO ONE (23:14)
[2018-08-28 23:28] LABS: Urine Appearance Clear; Urine Blood 1+ (Negative); Urine Color Straw; Urine Ketones Negative (Negative); Urine Protein Negative (Negative); Urine Red Blood Cell Trace(0-2/hpf) (Absent); Urine Urobilinogen Negative (Negative); Urine White Blood Cell Trace(0-5/hpf) (Absent)
[2018-08-28] MEDS ORDERED: Clotrimazole 1% VAGINAL CREAM* 45 GM VAGINAL SCH (23:30)
[2018-08-28 23:53] VITALS: BP 142/88
== END 2018-08-28 23:52 | disposition home or self-care (01) ==
LOC: ED 21:58
DX: B37.3 Candidiasis of vulva and vagina (principal); R10.9 Unspecified abdominal pain; Z88.0 Allergy status to penicillin; F17.210 Nicotine dependence, cigarettes, uncomplicated
CPT/HCPCS: 81003; 81015; 87086; 99282; A9270-GY

== ENCOUNTER 2018-10-14 23:34 | Inpatient (IN) | payer OTHER ==
[2018-10-14] MEDS ORDERED: NS 0.9% 1000 ML*IV.FLUID IV ONE (23:53)
--- NOTE | 2018-10-15 00:01 | ED ---
Complex/Multi-Sys Presentation - HPI Summary HPI Summary: This patient is a 53 year old F presenting to [facility] with a chief complaint of hallucinations and general weakness that she believes is due to a new BP medication (Clonidine) [employer]. The patient has also fallen and is experiencing back pain. Patient is experiencing sore throat Patient denies headache. Patient reports nausea, denies vomiting. Patient last took her medication yesterday morning. The patient rates her pain 6/10 in severity. - History Of Current Complaint Chief Complaint: EDGeneral Hx Obtained From: Patient Severity Currently: Mild Severity Initially: Mild Associated Signs And Symptoms: Positive: Weakness, Nausea, Back Pain. Negative : Vomiting - Allergies/Home Medications Allergies/Adverse Reactions: Allergies Allergy/AdvReac Type Severity Reaction Status Date / Time metoclopramide Allergy Unknown Unknown Verified 10/15/18 03:15 Reaction Details Sulfa (Sulfonamide Allergy Unknown Hives Verified 10/15/18 03:15 Antibiotics) Penicillins AdvReac Unknown Altered Verified 10/15/18 03:15 Mental Status Home Medications: Home Medications Bethanechol TAB* [Urecholine TAB*] 25 mg PO QID 10/15/18 [History Confirmed ] Buprenorp/Nalox 8-2 MG FILM [Suboxone 8 mg-2 mg Sl Film] 2.5 film PO DAILY 10/15 [History Confirmed 10/15/18] Cyclobenzaprine TAB* [Flexeril 10 MG TAB*] 10 mg PO TID PRN 10/15/18 [History Confirmed 10/15/18] FLUoxetine CAP* [PROzac CAP*] 40 mg PO DAILY 10/15/18 [History Confirmed ] Insulin Glargine,Hum.rec.anlog [Basaglar Kwikpen U-100] 60 units SUBCONJUNT BID 10/15/18 [History Confirmed 10/15/18] Insulin Lispro [Admelog] 10 units SUBCONJUNT TID 10/15/18 [History Confirmed ] Lidocaine PATCH 5%* [Lidoderm 5% Patch*] 1 patch TRANSDERM DAILY 10/15/18 [ History Confirmed 10/15/18] Lisinopril TAB* [Prinivil TAB*] 10 mg PO DAILY 10/15/18 [History Confirmed 10/15] Promethazine TAB* [Phenergan TAB*] 25 mg PO Q8H PRN 10/15/18 [History Confirmed 10/15/18] QUEtiapine TAB* [Seroquel 25 MG TAB*] 50 mg PO DAILY 10/15/18 [History Confirmed 10/15/18] Ranitidine TAB (NF) [Zantac TAB (NF)] 150 mg PO BID 10/15/18 [History Confirmed 10/15/18] Sucralfate TAB* [Carafate*] 1 gm PO TID 10/15/18 [History Confirmed 10/15/18] amLODIPine TAB* [Norvasc 5 mg TAB*] 10 mg PO DAILY 10/15/18 [History Confirmed 10/15/18] PMH/Surg Hx/FS Hx/Imm Hx Endocrine/Hematology History: Reports: Hx Diabetes Cardiovascular History: Reports: Hx Hypercholesterolemia, Hx Hypertension Respiratory History: Denies: Hx Asthma Musculoskeletal History: Reports: Hx Arthritis, Other Musculoskeletal History - sciatica Sensory History: Denies: Hx Legally Blind, Hx Deafness Opthamlomology History: Denies: Hx Legally Blind - Surgical History Surgery Procedure, Year, and Place: cholecystectomy and right knee surgery Infectious Disease History: No Infectious Disease History: Denies: Traveled Outside the [place] in Last 30 Days - Family History Known Family History: Positive: Hypertension - Social History Alcohol Use: None Substance Use Type: Reports: None Hx Tobacco Use: Yes Smoking Status (MU): Current Every Day Smoker Review of Systems Positive: Fatigue Positive: Sore Throat Positive: Nausea. Negative: Vomiting Positive: Myalgia - Back pain Positive: Weakness All Other Systems Reviewed And Are Negative: Yes Physical Exam - Summary Physical Exam Summary: Appearance: Well-appearing, Well-nourished, lying in bed comfortable. Skin: Warm, dry, no obvious rash Eyes: sclera anicteric, no conjunctival pallor ENT: mucous membranes dry. Neck: deferred Respiratory: No signs of respiratory distress Cardiovascular: Appears well perfused, pulses are nml. Tachycardic.Does not appear toxic. Abdomen: deferred Musculoskeletal: Moving all 4 extremities without obvious discomfort Neurological: Awake and alert, mentation is normal, speech is fluent and appropriate Psychiatric: affect is normal, does not appear anxious or depressed Triage Information Reviewed: Yes Vital Signs On Initial Exam: Initial Vitals Temp Pulse Resp BP Pulse Ox 100 F 141 22 157/89 94 10/14/18 23:38 10/14/18 23:38 10/14/18 23:38 10/14/18 23:38 10/14/18 23:38 Vital Signs Reviewed: Yes Diagnostics - Vital Signs Vital Signs Temp Pulse Resp BP Pulse Ox 10/14/18 23:38 100 F 141 22 157/89 94 - Laboratory Result Diagrams: 10/15/18 04:58 10/15/18 04:58 Lab Statement: Any lab studies that have been ordered have been reviewed, and results considered in the medical decision making process. - Radiology CXR Radiology Interpretation Completed By: ED Physician Summary of Radiographic Findings: Unremarkable for Cardiopulmonary disease. Awaiting official radiologist report. - EKG 5761 Cardiac Rate: Tachycardia - 134 BPM EKG Rhythm: Sinus Rhythm ST Segment: Normal Complex Multi-Symp Course/Dx Course Of Treatment: This patient is a 53 year old F presenting to [facility] with a chief complaint of hallucinations and general weakness [employer]. Examination was remarkable for sepsis. Dr. Duarte, Hospitalist was consulted at 0132 and came to see the patient in the ED and then recommended admission to [facility]. This plan for admission and treatment was discussed with the patient and the patient was agreeable with this plan. - Diagnoses Provider Diagnoses: Sepsis, Tachycardia - Physician Notifications Discussed Care Of Patient With: Manny Duarte Time Discussed With Above Provider: 01:32 Instructed by Provider To: Will See In ED Discharge - Sign-Out/Discharge Documenting (check all that apply): Patient Departure - Admit - Discharge Plan Condition: Stable Disposition: ADMITTED TO [facility] - Billing Disposition and Condition Condition: STABLE Disposition: Admitted to [facility] - Attestation Statements Document Initiated by Antoinee: Yes Documenting Scribe: Surindre Cisneros Provider For Whom Tracey is Documenting (Include Credential): Golden Sharpe MD Scribe Attestation: Surinder Car scribed for Golden Sharpe MD on 10/15/18 at 0608. Scribe Documentation Reviewed: Yes Provider Attestation: The documentation as recorded by the Surinder phan accurately reflects the service I personally performed and the decisions made by me, Golden Sharpe MD
[2018-10-15 00:22] LABS: ABS Basophils 0 10^3/ul (0-0.2); ABS Eosinophils 0.1 10^3/ul (0-0.6); ABS Lymphocytes 1.2 10^3/ul (1.0-4.8); ABS Monocytes 0.4 10^3/ul (0-0.8); ABS Neutrophils 11.8 10^3/ul (1.5-7.7); ABS Nucleated RBC 0 10^3/ul; Eosinophil % 0.4 % (0-6); Hematocrit 38 % (35-47); Hemoglobin 12.8 g/dl (12.0-16.0); Lymphocyte % 8.8 % (25-47); Mean Corpuscular HGB Conc 34 g/dl (31-36); Mean Corpuscular Hemoglobin 28 pg (27-31); Mean Corpuscular Volume 85 fL (80-97); Mean Platelet Volume 8.9 fL (7.4-10.4); Nucleated Red Blood Cells % 0; Platelet Count 205 10^3/ul (150-450); Red Blood Count 4.51 10^6/ul (4.00-5.40); Red Cell Distribution Width 13 % (10.5-15); White Blood Count 13.5 10^3/ul (3.5-10.8)
[2018-10-15 00:28] LABS: INR 0.92 (0.77-1.02)
[2018-10-15 00:43] LABS: EGFR Non-African American 81.5 (>60)
[2018-10-15] MEDS ORDERED: cefTRIAXone(*) 1 GM in NS 0.9% 50 ML* 50 ML IVPB ONE (01:20)
[2018-10-15] MEDS ORDERED: Ketorolac INJ* 30 MG/ML 1 ML VIAL IV PUSH ONE (01:23)
[2018-10-15 01:45] LABS: Urine Appearance Cloudy; Urine Blood Negative (Negative); Urine Color Yellow; Urine Ketones Negative (Negative); Urine Protein Negative (Negative); Urine Red Blood Cell Trace(0-2/hpf) (Absent); Urine Specific Gravity 1.014 (1.010-1.030); Urine Urobilinogen Negative (Negative); Urine White Blood Cell 1+(6-10/hpf) (Absent)
[2018-10-15] MEDS ORDERED: Dextrose 50% Syringe 50 ML* 25 GM/50 ML SYRINGE IV PUSH PRN (03:17)
[2018-10-15] MEDS ORDERED: Naproxen TAB* 250 MG PO PRN (03:44)
[2018-10-15] MEDS ORDERED: NS 0.9% w/ 20 Meq KCL 1000 ML* 1,000 ML IV SCH (04:00)
[2018-10-15 05:17] LABS: ABS Basophils 0 10^3/ul (0-0.2); ABS Eosinophils 0.1 10^3/ul (0-0.6); ABS Lymphocytes 1.5 10^3/ul (1.0-4.8); ABS Monocytes 0.4 10^3/ul (0-0.8); ABS Neutrophils 10.8 10^3/ul (1.5-7.7); ABS Nucleated RBC 0 10^3/ul; Eosinophil % 0.4 % (0-6); Hematocrit 34 % (35-47); Hemoglobin 11.2 g/dl (12.0-16.0); Lymphocyte % 11.5 % (25-47); Mean Corpuscular HGB Conc 34 g/dl (31-36); Mean Corpuscular Hemoglobin 28 pg (27-31); Mean Corpuscular Volume 85 fL (80-97); Mean Platelet Volume 9.1 fL (7.4-10.4); Nucleated Red Blood Cells % 0.1; Platelet Count 170 10^3/ul (150-450); Red Blood Count 3.96 10^6/ul (4.00-5.40); Red Cell Distribution Width 13 % (10.5-15); White Blood Count 12.7 10^3/ul (3.5-10.8)
[2018-10-15 05:33] LABS: EGFR Non-African American 96.3 (>60)
[2018-10-15] MEDS: Omeprazole CAP* 20 MG PO SCH (07:51)
[2018-10-15] MEDS: Insulin LISPRO* 1 UNITS UNIT SUBCUT SCH ×4 (08:56→20:06)
[2018-10-15] MEDS: Lidocaine PATCH 5%* 1 PATCH TRANSDERM SCH (08:56)
[2018-10-15] MEDS: Insulin GLARGINE(*) 1 UNITS UNIT SUBCUT SCH ×2 (08:56→20:06)
[2018-10-15] MEDS: Gabapentin CAP(*) 300 MG PO SCH ×3 (08:58→19:53)
[2018-10-15] MEDS: FLUoxetine CAP* 20 MG PO SCH (08:58)
[2018-10-15] MEDS: Famotidine TAB* 20 MG PO SCH ×2 (08:59→19:54)
[2018-10-15] MEDS: Topiramate TAB(*) 25 MG PO SCH ×2 (08:59→19:53)
[2018-10-15] MEDS ORDERED: Atorvastatin* 20 MG TAB PO SCH (09:00)
[2018-10-15] MEDS ORDERED: Pneumococcal *Vac Polyvalent 0.5 ML VIAL IM ONE (09:00)
[2018-10-15] MEDS ORDERED: QUEtiapine TAB* 25 MG PO SCH (09:00)
[2018-10-15] MEDS ORDERED: Lisinopril TAB* 10 MG PO SCH (09:00)
[2018-10-15] MEDS: Buprenorp/Nalox 8-2 MG SL TAB.SL SL SCH (09:20)
[2018-10-15] MEDS: Bethanechol TAB* 25 MG PO SCH ×4 (09:20→19:54)
[2018-10-15] MEDS: Sucralfate TAB* 1 GM PO SCH ×3 (10:35→19:54)
[2018-10-15] MEDS: amLODIPine TAB* 5 MG PO SCH (10:35)
[2018-10-15] MEDS: NS 0.9% 1000 ML* 1,000 ML IV SCH (12:11)
[2018-10-15] MEDS: Azithromycin IV(*) 500 MG in NS 0.9% 250 ML* 250 ML IVPB SCH (12:12)
[2018-10-15] MEDS: Promethazine TAB* 25 MG PO PRN (13:33)
[2018-10-15] MEDS: Butalb/Acetamin/Caff TAB* 1 TAB PO PRN (13:33)
--- NOTE | 2018-10-15 15:33 | PN ---
Subjective Date of Service: 10/15/18 Interval History: Reports improvement in confusion and hallucinations. Objective Active Medications: Acetaminophen/Butalbital/Caffeine (Fioricet Tab*) 1 tab PO Q6H PRN PRN Reason: MIGRAINE HEADACHE Last Admin: 10/15/18 13:33 Dose: 1 tab Amlodipine Besylate (Norvasc Tab*) 10 mg PO DAILY [facility] Last Admin: 10/15/18 10:35 Dose: 10 mg Atorvastatin Calcium (Lipitor*) 20 mg PO BEDTIME [facility] Bethanechol Chloride (Urecholine Tab*) 25 mg PO QID [facility] Last Admin: 10/15/18 12:13 Dose: 25 mg Buprenorphine/Naloxone (Suboxone 8-2 Mg Sl Tab*) 2.5 tab.sl SL DAILY [facility] Last Admin: 10/15/18 09:20 Dose: 2.5 tab.sl Cyclobenzaprine HCl (Flexeril Tab*) 10 mg PO TID PRN PRN Reason: SPASMS - MUSCLE Dextrose (D50w Syringe 50 Ml*) 12.5 gm IV PUSH .FOR FS < 60 - SS PRN PRN Reason: FS < 60 Famotidine (Pepcid Tab*) 20 mg PO BID [facility]; Protocol Last Admin: 10/15/18 08:59 Dose: 20 mg Fluoxetine HCl (Prozac Cap*) 40 mg PO DAILY [facility] Last Admin: 10/15/18 08:58 Dose: 40 mg Gabapentin (Neurontin Cap(*)) 600 mg PO TID [facility] Last Admin: 10/15/18 13:33 Dose: 600 mg Ceftriaxone Sodium 1 gm/ (Sodium Chloride) 50 mls @ 200 mls/hr IVPB Q24H [facility] Sodium Chloride (Ns 0.9% 1000 Ml*) 1,000 mls @ 75 mls/hr IV .PER RATE [facility] Last Admin: 10/15/18 12:11 Dose: 75 mls/hr Azithromycin 500 mg/ Sodium (Chloride) 250 mls @ 250 mls/hr IVPB Q24H [facility] Last Admin: 10/15/18 12:12 Dose: 250 mls/hr Insulin Glargine (Lantus(*)) 60 units SUBCUT BID [facility] Last Admin: 10/15/18 08:56 Dose: 60 units Insulin Human Lispro (Humalog*) 0 units SUBCUT ACHS [facility]; Protocol Last Admin: 10/15/18 12:13 Dose: 2 units Lidocaine (Lidoderm 5% Patch*) 1 patch TRANSDERM DAILY [facility] Last Admin: 10/15/18 08:56 Dose: 1 patch Lisinopril (Prinivil Tab*) 10 mg PO DAILY [facility] Last Admin: 10/15/18 10:25 Dose: Not Given Naproxen (Naprosyn Tab*) 500 mg PO Q12H PRN PRN Reason: PAIN Omeprazole (Prilosec Cap*) 20 mg PO DAILY@0730 [facility] Last Admin: 10/15/18 07:51 Dose: 20 mg Pharmacy Profile Note (Lidocaine Patch Remove*) 1 note PATCH OFF BEDTIME [facility] Promethazine HCl (Phenergan Tab*) 25 mg PO Q8H PRN PRN Reason: NAUSEA Last Admin: 10/15/18 13:33 Dose: 25 mg Quetiapine Fumarate (Seroquel Tab*) 50 mg PO BEDTIME [facility] Sucralfate (Carafate*) 1 gm PO TID [facility] Last Admin: 10/15/18 14:55 Dose: 1 gm Topiramate (Topamax(*)) 50 mg PO BID [facility] Last Admin: 10/15/18 08:59 Dose: 50 mg Vital Signs - 8 hr 10/15/18 10/15/18 10/15/18 07:49 07:50 08:58 Temperature 98.5 F Pulse Rate 108 Respiratory 20 16 20 Rate Blood Pressure 107/72 (mmHg) O2 Sat by Pulse 97 Oximetry 10/15/18 10/15/18 10/15/18 09:20 10:40 11:33 Temperature 98.3 F Pulse Rate 110 Respiratory 20 22 16 Rate Blood Pressure 129/71 (mmHg) O2 Sat by Pulse 97 Oximetry 10/15/18 13:33 Temperature Pulse Rate Respiratory 22 Rate Blood Pressure (mmHg) O2 Sat by Pulse Oximetry Oxygen Devices in Use Now: Nasal Cannula Eyes: No Scleral Icterus Ears/Nose/Mouth/Throat: NL Teeth, Lips, Gums Neck: NL Appearance and Movements; NL JVP Respiratory: Symmetrical Chest Expansion and Respiratory Effort Cardiovascular: NL Sounds; No Murmurs; No JVD Abdominal: NL Sounds; No Tenderness; No Distention Skin: No Rash or Ulcers Neurological: Alert and Oriented x 3 Result Diagrams: 10/15/18 04:58 10/15/18 04:58 Microbiology and Other Data: Microbiology 10/15/18 00:05 Influenza Types A,B Antigen - Final Nasopharyngeal Specimen received for Influenza A/B Molecular testing Assess/Plan/Problems-Billing Assessment: 53 y/o with recent clonidine use with AMS,hallucinations, leukocytosis sec to possible UTI and Pneumonia - Patient Problems (1) Pneumonia Current Visit: Yes Status: Acute Code(s): J18.9 - PNEUMONIA, UNSPECIFIED ORGANISM SNOMED Code(s): 430831499 Comment: CXR with findings of pneumonia Likely community acquired Pt reports SOB Will keep the pt of Ceftriaxone, Azithromycin and await cultures (2) UTI (urinary tract infection) Current Visit: Yes Status: Acute Comment: poss uti with AMS will wait for blood and urine cultures and cover with ceftriaxone for now (3) SIRS (systemic inflammatory response syndrome) Current Visit: Yes Status: Acute Code(s): R65.10 - SIRS OF NON-INFECTIOUS ORIGIN W/O ACUTE ORGAN DYSFUNCTION SNOMED Code(s): 285977744 Comment: sec above will await cultures Will keep on IVF NS at 75cc/hr (4) Hypotension Current Visit: Yes Status: Acute Comment: Mild Will continue IVF Will hold on Lisinopril to dec risk of ED Will continue Amlodipine
[2018-10-15] MEDS: cefTRIAXone(*) 1 GM in NS 0.9% 50 ML* 50 ML IVPB SCH (19:44)
[2018-10-15] MEDS: Lidocaine Patch REMOVE* 1 NOTE MISC PATCH OFF SCH (19:52)
[2018-10-15] MEDS: QUEtiapine TAB* 25 MG PO SCH (19:54)
[2018-10-15] MEDS: Atorvastatin* 20 MG TAB PO SCH (19:54)
[2018-10-15] MEDS: Cyclobenzaprine TAB* 10 MG PO PRN (20:03)
--- NOTE | 2018-10-15 20:36 | HP ---
CC: [facility] ADMISSION HISTORY AND PHYSICAL: DATE OF ADMISSION: 10/15/18. CHIEF COMPLAINT: Abdominal pain. HISTORY OF PRESENT ILLNESS: Ms. Simpson is a 53-year-old woman with multiple medical problems including type 2 diabetes, chronic pain, opioid use disorder who presents with severe pain in her lower abdomen and lower back for 2 days. She also reports that she feels disoriented and has had repeated falls in the last 2 days. She states she has fallen 8 times and injured her forehead and back. She attributes the fall to initiation of clonidine, which was started 2 days ago in the [facility]. She stopped this on the day of admission. She also reports hallucinations and talking to people that were not there since starting the medication. The patient is not regularly checking her blood sugar. Diabetes control is unclear. Patient was seen in the emergency department also on 10/11/18. At that point, she had run out of her Suboxone and she was having withdrawal symptoms. Since then, she has made connection with her addiction treatment center in [place] and has gotten a refill of Suboxone. Her last use of intravenous drugs was November 2016. She used to use heroin IV. PAST MEDICAL HISTORY: Includes chronic pain in the back, migraines, type 2 diabetes, hypertension, hyperlipidemia, GERD, depression, nephrolithiasis, opioid disorder. PAST SURGICAL HISTORY: Tonsillectomy, right knee injury with a skin grafts and appendectomy in the past. MEDICATIONS ON ADMISSION: Are somewhat unclear, but she does have a list with her that includes: 1. Amlodipine 10 mg p.o. daily. 2. Atorvastatin 20 mg p.o. q.h.s. 3. Bethanechol 25 mg p.o. q.i.d. 4. Suboxone 8 mg strips 2.5 strips per day 5. Fioricet 1 tab p.o. q.6 hours p.r.n. migraine 6. Flexeril 10 mg p.o. t.i.d. p.r.n. 7. Fluoxetine 40 mg p.o. daily. 8. Gabapentin 600 mg p.o. t.i.d. 9. Insulin glargine 16 units subcutaneous daily. 10. Insulin Lispro 10 units subcutaneous q.a.c. 11. Lidoderm patch. 12. Lisinopril 10 mg p.o. daily. 13. Protonix 40 mg p.o. daily. 14. Phenergan 25 mg p.o. q.8 hours p.r.n. nausea, 15. Seroquel 50 mg p.o. q.h.s. 16. Zantac 150 mg p.o. b.i.d. 17. Sucralfate 1 g p.o. t.i.d. p.r.n. 18. Topiramate 50 mg p.o. b.i.d. ALLERGIES: METOCLOPRAMIDE, SULFA, and PENICILLIN. FAMILY HISTORY: Notable for father of stomach cancer, pancreatic cancer. Brother is alcoholic. Mother is alive with hypertension. SOCIAL HISTORY: She is disabled. She is . She has 2 children. Her is her healthy care proxy. She smokes cigarettes occasionally. No alcohol. Recreational drugs none in almost 2 years as above. REVIEW OF SYSTEMS: Patient reports fever and loss of appetite. Patient denies any chest pain or palpitations. Patient denies any cough, hemoptysis, or shortness of breath. Patient does report abdominal pain, but denies nausea, vomiting, or diarrhea. She has had no gross hematuria. She has had arthralgias and aches in her legs. She has had psychotic symptoms as above. The remainder of 14-point of review of systems negative other than mentioned in the HPI. PHYSICAL EXAMINATION GENERAL: She is awake, alert, but diaphoretic. VITAL SIGNS: Temperature is 37.9, pulse 120 to 139, respirations 16, blood pressure 108/65, oxygen saturation 92%. HEENT: Her pupils are reactive but dilated. Her extraocular muscles are intact. Oropharynx is moist, no lesions. NECK: No JVD. No carotid bruit. No thyromegaly. LUNGS: Clear to auscultation and percussion bilaterally. HEART: Tachycardic, regular and no murmurs. ABDOMEN: Soft, nontender. Positive bowel sounds. There is left CVA tenderness. EXTREMITIES: No peripheral edema. Dorsalis pedis pulses 2+ bilaterally. SKIN: No lesions. NEUROLOGIC: Cranial nerves II through XII are intact. Motor strength is 5/5 throughout. Deep tendon reflexes symmetric. PSYCHIATRIC: She is alert and oriented x3. She does have anxiety. DIAGNOSTIC STUDIES/LABORATORY DATA: Sodium 135, potassium 3.5, chloride 102, bicarb 25, BUN 14, creatinine 0.74, glucose 144, calcium 9.6, alk phos 128, albumin 4.0. AST is 45, ALT 22, bilirubin 0.3, INR is 0.92, lactic acid 1.6, troponin 0.01, white count 13.5, hemoglobin 12.8, hematocrit 38%, platelets are 205. Influenza swab is negative. Urinalysis shows 1+ leuk esterase, 1+ white cells, 1+ bacteria. EKG shows sinus tachycardia. Chest x-ray negative for infiltrates or effusions. ASSESSMENT AND PLAN: A 53-year-old woman presenting with fever and tachycardia , elevated white count consistent with systemic inflammatory response syndrome. There is no clear source although the differential would include UTI where urine does show some inflammation. She could also have a bloodstream infection , osteomyelitis or occult pneumonia, now she will have a chest x-ray. Patient will be admitted to the hospital for potential sepsis and treated with intravenous fluids and ceftriaxone. We will follow blood and urine cultures to nail the coverage. She is going to have a renal ultrasound in the morning as she has CVA tenderness that may represent an infected kidney stone. For type 2 diabetes, we will continue on her basal and bolus insulin and monitor her closely given her acute illness. For opioid use, she will continue her current dose of Suboxone and try to treat any additional pain with NSAIDs. Code status is full. DVT prophylaxis: She could have early ambulation and venous compression stockings. She is otherwise a low risk for DVT. [id number]/[facility] #: [id number] [facility]PITALCecilio
[2018-10-16] MEDS: NS 0.9% 1000 ML* 1,000 ML IV SCH ×2 (03:24→17:12)
[2018-10-16] MEDS: Insulin LISPRO* 1 UNITS UNIT SUBCUT SCH ×4 (08:12→20:17)
[2018-10-16] MEDS: FLUoxetine CAP* 20 MG PO SCH (09:31)
[2018-10-16] MEDS: Omeprazole CAP* 20 MG PO SCH (09:31)
[2018-10-16] MEDS: amLODIPine TAB* 5 MG PO SCH (09:31)
[2018-10-16] MEDS: Buprenorp/Nalox 8-2 MG SL TAB.SL SL SCH (09:31)
[2018-10-16] MEDS: Gabapentin CAP(*) 300 MG PO SCH ×3 (09:32→20:31)
[2018-10-16] MEDS: Bethanechol TAB* 25 MG PO SCH ×4 (09:32→20:33)
[2018-10-16] MEDS: Famotidine TAB* 20 MG PO SCH ×2 (09:33→20:31)
[2018-10-16] MEDS: Insulin GLARGINE(*) 1 UNITS UNIT SUBCUT SCH ×2 (09:33→20:44)
[2018-10-16] MEDS: Lidocaine PATCH 5%* 1 PATCH TRANSDERM SCH (09:36)
[2018-10-16] MEDS: Promethazine TAB* 25 MG PO PRN ×2 (09:42→20:33)
[2018-10-16] MEDS: Cyclobenzaprine TAB* 10 MG PO PRN ×2 (09:42→20:33)
[2018-10-16] MEDS: Topiramate TAB(*) 25 MG PO SCH ×2 (09:42→20:32)
--- NOTE | 2018-10-16 10:38 | PN ---
Subjective Date of Service: 10/16/18 Interval History: Reports some improvement.SOB improved.Worried about recent memory problems Objective Active Medications: Acetaminophen/Butalbital/Caffeine (Fioricet Tab*) 1 tab PO Q6H PRN PRN Reason: MIGRAINE HEADACHE Last Admin: 10/15/18 13:33 Dose: 1 tab Amlodipine Besylate (Norvasc Tab*) 10 mg PO DAILY [facility] Last Admin: 10/16/18 09:31 Dose: 10 mg Atorvastatin Calcium (Lipitor*) 20 mg PO BEDTIME [facility] Last Admin: 10/15/18 19:54 Dose: 20 mg Bethanechol Chloride (Urecholine Tab*) 25 mg PO QID [facility] Last Admin: 10/16/18 09:32 Dose: 25 mg Buprenorphine/Naloxone (Suboxone 8-2 Mg Sl Tab*) 2.5 tab.sl SL DAILY [facility] Last Admin: 10/16/18 09:31 Dose: 2.5 tab.sl Cyclobenzaprine HCl (Flexeril Tab*) 10 mg PO TID PRN PRN Reason: SPASMS - MUSCLE Last Admin: 10/16/18 09:42 Dose: 10 mg Dextrose (D50w Syringe 50 Ml*) 12.5 gm IV PUSH .FOR FS < 60 - SS PRN PRN Reason: FS < 60 Famotidine (Pepcid Tab*) 20 mg PO BID [facility]; Protocol Last Admin: 10/16/18 09:33 Dose: 20 mg Fluoxetine HCl (Prozac Cap*) 40 mg PO DAILY [facility] Last Admin: 10/16/18 09:31 Dose: 40 mg Gabapentin (Neurontin Cap(*)) 600 mg PO TID [facility] Last Admin: 10/16/18 09:32 Dose: 600 mg Ceftriaxone Sodium 1 gm/ (Sodium Chloride) 50 mls @ 200 mls/hr IVPB Q24H [facility] Last Admin: 10/15/18 19:44 Dose: 200 mls/hr Sodium Chloride (Ns 0.9% 1000 Ml*) 1,000 mls @ 75 mls/hr IV .PER RATE [facility] Last Admin: 10/16/18 03:24 Dose: 75 mls/hr Azithromycin 500 mg/ Sodium (Chloride) 250 mls @ 250 mls/hr IVPB Q24H [facility] Last Admin: 10/15/18 12:12 Dose: 250 mls/hr Insulin Glargine (Lantus(*)) 60 units SUBCUT BID [facility] Last Admin: 10/16/18 09:33 Dose: 60 units Insulin Human Lispro (Humalog*) 0 units SUBCUT ACHS [facility]; Protocol Last Admin: 10/16/18 08:12 Dose: Not Given Lidocaine (Lidoderm 5% Patch*) 1 patch TRANSDERM DAILY [facility] Last Admin: 10/16/18 09:36 Dose: 1 patch Naproxen (Naprosyn Tab*) 500 mg PO Q12H PRN PRN Reason: PAIN Omeprazole (Prilosec Cap*) 20 mg PO DAILY@0730 [facility] Last Admin: 10/16/18 09:31 Dose: 20 mg Pharmacy Profile Note (Lidocaine Patch Remove*) 1 note PATCH OFF BEDTIME [facility] Last Admin: 10/15/18 19:52 Dose: 1 note Promethazine HCl (Phenergan Tab*) 25 mg PO Q8H PRN PRN Reason: NAUSEA Last Admin: 10/16/18 09:42 Dose: 25 mg Quetiapine Fumarate (Seroquel Tab*) 50 mg PO BEDTIME [facility] Last Admin: 10/15/18 19:54 Dose: 50 mg Sucralfate (Carafate*) 1 gm PO TID [facility] Last Admin: 10/15/18 19:54 Dose: 1 gm Topiramate (Topamax(*)) 50 mg PO BID [facility] Last Admin: 10/16/18 09:42 Dose: 50 mg Vital Signs - 8 hr 10/16/18 10/16/18 10/16/18 03:20 07:23 07:26 Temperature 98.1 F 98.3 F Pulse Rate 105 102 Respiratory 17 20 20 Rate Blood Pressure 107/69 106/66 (mmHg) O2 Sat by Pulse 93 95 Oximetry 10/16/18 10/16/18 10/16/18 09:31 09:32 09:42 Temperature Pulse Rate Respiratory 23 23 23 Rate Blood Pressure (mmHg) O2 Sat by Pulse Oximetry Oxygen Devices in Use Now: Nasal Cannula Eyes: No Scleral Icterus Ears/Nose/Mouth/Throat: NL Teeth, Lips, Gums Neck: NL Appearance and Movements; NL JVP, Trachea Midline Respiratory: Symmetrical Chest Expansion and Respiratory Effort, Clear to Auscultation Cardiovascular: NL Sounds; No Murmurs; No JVD, RRR Abdominal: NL Sounds; No Tenderness; No Distention Extremities: No Edema Skin: No Rash or Ulcers Neurological: Alert and Oriented x 3 Result Diagrams: 10/15/18 04:58 10/15/18 04:58 Microbiology and Other Data: Microbiology 10/15/18 00:05 Influenza Types A,B Antigen - Final Nasopharyngeal Specimen received for Influenza A/B Molecular testing Assess/Plan/Problems-Billing Assessment: 53 y/o with recent clonidine use with AMS,hallucinations, leukocytosis sec to possible UTI and Pneumonia - Patient Problems (1) Pneumonia Current Visit: Yes Status: Acute Code(s): J18.9 - PNEUMONIA, UNSPECIFIED ORGANISM SNOMED Code(s): 261234467 Comment: CXR with findings of pneumonia Likely community acquired Pt reports improvement in SOB Will keep the pt of Ceftriaxone, Azithromycin and await cultures (2) UTI (urinary tract infection) Current Visit: Yes Status: Acute Comment: poss uti with AMS will wait for blood and urine cultures and cover with ceftriaxone for now (3) SIRS (systemic inflammatory response syndrome) Current Visit: Yes Status: Acute Code(s): R65.10 - SIRS OF NON-INFECTIOUS ORIGIN W/O ACUTE ORGAN DYSFUNCTION SNOMED Code(s): 297456053 Comment: sec above will await cultures Will keep on IVF NS at 75cc/hr (4) Hypotension Current Visit: Yes Status: Acute Comment: Mild Will continue IVF Will hold on Lisinopril to dec risk of ED Will continue Amlodipine (5) Memory changes Current Visit: Yes Status: Acute Code(s): R41.3 - OTHER AMNESIA SNOMED Code(s): 912509475 Comment: Will check B12, tsh,free t4,thiamine level fam h/o early dementia and alzeimers
[2018-10-16] MEDS: Sucralfate TAB* 1 GM PO SCH ×3 (11:40→20:32)
[2018-10-16] MEDS: Azithromycin IV(*) 500 MG in NS 0.9% 250 ML* 250 ML IVPB SCH (11:45)
[2018-10-16] MEDS ORDERED: Acetaminophen TAB* 325 MG PO PRN (14:52)
[2018-10-16] MEDS: cefTRIAXone(*) 1 GM in NS 0.9% 50 ML* 50 ML IVPB SCH (20:07)
[2018-10-16] MEDS: Atorvastatin* 20 MG TAB PO SCH (20:32)
[2018-10-16] MEDS: QUEtiapine TAB* 25 MG PO SCH (20:32)
[2018-10-16] MEDS: Butalb/Acetamin/Caff TAB* 1 TAB PO PRN (20:33)
[2018-10-16] MEDS: Lidocaine Patch REMOVE* 1 NOTE MISC PATCH OFF SCH (20:44)
[2018-10-17 06:37] LABS: ABS Basophils 0 10^3/ul (0-0.2); ABS Eosinophils 0.1 10^3/ul (0-0.6); ABS Lymphocytes 1.4 10^3/ul (1.0-4.8); ABS Monocytes 0.4 10^3/ul (0-0.8); ABS Neutrophils 3.5 10^3/ul (1.5-7.7); ABS Nucleated RBC 0 10^3/ul; Hematocrit 33 % (35-47); Hemoglobin 10.6 g/dl (12.0-16.0); Lymphocyte % 25.9 % (25-47); Mean Corpuscular HGB Conc 33 g/dl (31-36); Mean Corpuscular Hemoglobin 28 pg (27-31); Mean Corpuscular Volume 86 fL (80-97); Mean Platelet Volume 10.1 fL (7.4-10.4); Nucleated Red Blood Cells % 0; Platelet Count 168 10^3/ul (150-450); Red Blood Count 3.79 10^6/ul (4.00-5.40); Red Cell Distribution Width 14 % (10.5-15); White Blood Count 5.5 10^3/ul (3.5-10.8)
[2018-10-17 06:53] LABS: EGFR Non-African American 105.8 (>60)
[2018-10-17] MEDS: Insulin LISPRO* 1 UNITS UNIT SUBCUT SCH ×4 (07:19→21:27)
[2018-10-17] MEDS: amLODIPine TAB* 5 MG PO SCH (08:35)
[2018-10-17] MEDS: Famotidine TAB* 20 MG PO SCH ×2 (08:36→21:28)
[2018-10-17] MEDS: Omeprazole CAP* 20 MG PO SCH (08:36)
[2018-10-17] MEDS: Sucralfate TAB* 1 GM PO SCH ×3 (08:36→21:28)
[2018-10-17] MEDS: Bethanechol TAB* 25 MG PO SCH ×4 (08:36→21:28)
[2018-10-17] MEDS: Buprenorp/Nalox 8-2 MG SL TAB.SL SL SCH (08:36)
[2018-10-17] MEDS: FLUoxetine CAP* 20 MG PO SCH (08:36)
[2018-10-17] MEDS: Gabapentin CAP(*) 300 MG PO SCH ×3 (08:36→21:28)
[2018-10-17] MEDS: Topiramate TAB(*) 25 MG PO SCH ×2 (08:36→21:28)
[2018-10-17] MEDS: Lidocaine PATCH 5%* 1 PATCH TRANSDERM SCH (08:40)
[2018-10-17] MEDS: NS 0.9% 1000 ML* 1,000 ML IV SCH (09:07)
[2018-10-17] MEDS ORDERED: Potassium Chlor TAB* 10 MEQ TAB.ER PO ONE (09:36)
[2018-10-17] MEDS: Insulin GLARGINE(*) 1 UNITS UNIT SUBCUT SCH ×2 (10:32→21:26)
[2018-10-17] MEDS: Nicotine PATCH 14 MG/24 HR* PATCH TRANSDERM SCH (12:25)
[2018-10-17] MEDS: Azithromycin IV(*) 500 MG in NS 0.9% 250 ML* 250 ML IVPB SCH (12:25)
[2018-10-17] MEDS: Cyclobenzaprine TAB* 10 MG PO PRN (13:28)
[2018-10-17] MEDS: Promethazine TAB* 25 MG PO PRN (13:28)
[2018-10-17] MEDS ORDERED: Potassium Chlor TAB* 20 MEQ TAB.ER PO ONE (17:31)
[2018-10-17] MEDS: cefTRIAXone(*) 1 GM in NS 0.9% 50 ML* 50 ML IVPB SCH (20:05)
--- NOTE | 2018-10-17 20:17 | PN ---
Subjective Date of Service: 10/17/18 Interval History: Patient reports that she continues to hear voices. she reports that the voices are people she knows states that it is like she is having a conversation with them but when she turns to answer them they are not there. reports that shortness of breath is improved. denies abd pain , does reports some nausea. denies v/d. denies chest pain. Patient reports that she feel like she is forgetting things more frequently and is concerned about dementia. Family History: Unchanged from Admission Social History: Unchanged from Admission Past Medical History: Unchanged from Admission Objective Active Medications: Acetaminophen (Tylenol Tab*) 650 mg PO Q6H PRN PRN Reason: FEVER Last Admin: 10/16/18 15:32 Dose: 650 mg Acetaminophen/Butalbital/Caffeine (Fioricet Tab*) 1 tab PO Q6H PRN PRN Reason: MIGRAINE HEADACHE Last Admin: 10/16/18 20:33 Dose: 1 tab Amlodipine Besylate (Norvasc Tab*) 10 mg PO DAILY [facility] Last Admin: 10/17/18 08:35 Dose: 10 mg Atorvastatin Calcium (Lipitor*) 20 mg PO BEDTIME [facility] Last Admin: 10/16/18 20:32 Dose: 20 mg Bethanechol Chloride (Urecholine Tab*) 25 mg PO QID [facility] Last Admin: 10/17/18 17:09 Dose: 25 mg Buprenorphine/Naloxone (Suboxone 8-2 Mg Sl Tab*) 2.5 tab.sl SL DAILY [facility] Last Admin: 10/17/18 08:36 Dose: 2.5 tab.sl Cyclobenzaprine HCl (Flexeril Tab*) 10 mg PO TID PRN PRN Reason: SPASMS - MUSCLE Last Admin: 10/17/18 13:28 Dose: 10 mg Dextrose (D50w Syringe 50 Ml*) 12.5 gm IV PUSH .FOR FS < 60 - SS PRN PRN Reason: FS < 60 Famotidine (Pepcid Tab*) 20 mg PO BID [facility]; Protocol Last Admin: 10/17/18 08:36 Dose: 20 mg Fluoxetine HCl (Prozac Cap*) 40 mg PO DAILY [facility] Last Admin: 10/17/18 08:36 Dose: 40 mg Gabapentin (Neurontin Cap(*)) 600 mg PO TID [facility] Last Admin: 10/17/18 13:28 Dose: 600 mg Ceftriaxone Sodium 1 gm/ (Sodium Chloride) 50 mls @ 200 mls/hr IVPB Q24H [facility] Last Admin: 10/17/18 20:05 Dose: 200 mls/hr Azithromycin 500 mg/ Sodium (Chloride) 250 mls @ 250 mls/hr IVPB Q24H [facility] Last Admin: 10/17/18 12:25 Dose: 250 mls/hr Insulin Glargine (Lantus(*)) 60 units SUBCUT BID [facility] Last Admin: 10/17/18 10:32 Dose: Not Given Insulin Human Lispro (Humalog*) 0 units SUBCUT ACHS [facility]; Protocol Last Admin: 10/17/18 17:09 Dose: 4 units Lidocaine (Lidoderm 5% Patch*) 1 patch TRANSDERM DAILY [facility] Last Admin: 10/17/18 08:40 Dose: Not Given Naproxen (Naprosyn Tab*) 500 mg PO Q12H PRN PRN Reason: PAIN Nicotine (Nicotine Patch 14 Mg/24 Hr*) 1 patch TRANSDERM DAILY [facility] Last Admin: 10/17/18 12:25 Dose: 1 patch Omeprazole (Prilosec Cap*) 20 mg PO DAILY@0730 [facility] Last Admin: 10/17/18 08:36 Dose: 20 mg Pharmacy Profile Note (Lidocaine Patch Remove*) 1 note PATCH OFF BEDTIME [facility] Last Admin: 10/16/18 20:44 Dose: 1 note Pharmacy Profile Note (Nicotine Patch Removal Note*) 1 note PATCH OFF 2100 [facility] Promethazine HCl (Phenergan Tab*) 25 mg PO Q8H PRN PRN Reason: NAUSEA Last Admin: 10/17/18 13:28 Dose: 25 mg Quetiapine Fumarate (Seroquel Tab*) 50 mg PO BEDTIME [facility] Last Admin: 10/16/18 20:32 Dose: 50 mg Sucralfate (Carafate*) 1 gm PO TID [facility] Last Admin: 10/17/18 13:28 Dose: 1 gm Topiramate (Topamax(*)) 50 mg PO BID [facility] Last Admin: 10/17/18 08:36 Dose: 50 mg Vital Signs - 8 hr 10/17/18 10/17/18 10/17/18 13:28 15:35 15:49 Temperature 99.1 F Pulse Rate 109 Respiratory 16 16 19 Rate Blood Pressure 121/72 (mmHg) O2 Sat by Pulse 96 Oximetry Oxygen Devices in Use Now: Nasal Cannula Appearance: alert and oreinted x3 , no acute disterss Eyes: No Scleral Icterus Ears/Nose/Mouth/Throat: Clear Oropharnyx, Mucous Membranes Moist Neck: NL Appearance and Movements; NL JVP, Trachea Midline Respiratory: Symmetrical Chest Expansion and Respiratory Effort, Clear to Auscultation Cardiovascular: NL Sounds; No Murmurs; No JVD, No Edema Abdominal: NL Sounds; No Tenderness; No Distention Extremities: No Edema, No Clubbing, Cyanosis Skin: No Rash or Ulcers Neurological: Alert and Oriented x 3 Nutrition: Taking PO's Result Diagrams: 10/17/18 05:44 10/18/18 05:40 Microbiology and Other Data: Microbiology 10/15/18 00:05 Influenza Types A,B Antigen - Final Nasopharyngeal Specimen received for Influenza A/B Molecular testing Assess/Plan/Problems-Billing Assessment: 53 y/o with recent clonidine use with AMS,hallucinations, leukocytosis sec to possible UTI and Pneumonia - Patient Problems (1) Pneumonia Current Visit: Yes Status: Acute Code(s): J18.9 - PNEUMONIA, UNSPECIFIED ORGANISM SNOMED Code(s): 473350716 Comment: Patient with elevated WBC on admission, tachycardia, tachypnea and low grade fever- now resolved - suspect this was related to pneumonia - will continue azithromycin and ceftriaxone (2) Memory changes Current Visit: Yes Status: Acute Code(s): R41.3 - OTHER AMNESIA SNOMED Code(s): 861053314 Comment: Will check B12- elevated -tsh,free t4 - TSH 0.14 - should have repeat level in 3-4 weeks thiamine level fam h/o early dementia and alz- would recommend outpatient work up - if symptoms continue polypharmacy - could also be contributing to her memory changes (3) Hypotension Current Visit: Yes Status: Acute Comment: resolved- SBP 121 today will continue to hold lisinopril to decrease the risk of ED Will continue Amlodipine (4) UTI (urinary tract infection) Current Visit: Yes Status: Acute Comment: NO evidence will wait for blood negative - urine cultures negative - no growth (5) Acid reflux Current Visit: No Status: Acute Code(s): K21.9 - GASTRO-ESOPHAGEAL REFLUX DISEASE WITHOUT ESOPHAGITIS SNOMED Code(s): 377742680 Comment: continue pepcid and carafate (6) Anxiety Current Visit: No Status: Acute Code(s): F41.9 - ANXIETY DISORDER, UNSPECIFIED SNOMED Code(s): 28462635 Comment: cotinue home medications. (7) Back pain Current Visit: No Status: Acute Code(s): M54.9 - DORSALGIA, UNSPECIFIED SNOMED Code(s): 633908638 Comment: continue home medications (8) DVT prophylaxis Current Visit: Yes Status: Acute Code(s): LDP4976 - SNOMED Code(s): 215744406 Comment: SCD's (9) Full code status Current Visit: Yes Status: Acute Code(s): Z78.9 - OTHER SPECIFIED HEALTH STATUS SNOMED Code(s): 268058405 Status and Disposition: inpatient - discharge home tomorrow
[2018-10-17] MEDS ORDERED: Nicotine Patch Removal NOTE PATCH OFF SCH (21:00)
[2018-10-17] MEDS: Atorvastatin* 20 MG TAB PO SCH (21:28)
[2018-10-17] MEDS: QUEtiapine TAB* 25 MG PO SCH (21:29)
[2018-10-17] MEDS: Lidocaine Patch REMOVE* 1 NOTE MISC PATCH OFF SCH (21:31)
[2018-10-18 07:09] LABS: EGFR Non-African American 125.2 (>60)
[2018-10-18] MEDS: Insulin LISPRO* 1 UNITS UNIT SUBCUT SCH ×2 (07:19→12:25)
[2018-10-18] MEDS: Insulin GLARGINE(*) 1 UNITS UNIT SUBCUT SCH ×3 (08:03→12:25)
[2018-10-18] MEDS: Famotidine TAB* 20 MG PO SCH (08:45)
[2018-10-18] MEDS: Bethanechol TAB* 25 MG PO SCH (08:45)
[2018-10-18] MEDS: Buprenorp/Nalox 8-2 MG SL TAB.SL SL SCH (08:45)
[2018-10-18] MEDS: amLODIPine TAB* 5 MG PO SCH (08:45)
[2018-10-18] MEDS: Omeprazole CAP* 20 MG PO SCH (08:45)
[2018-10-18] MEDS: Sucralfate TAB* 1 GM PO SCH (08:45)
[2018-10-18] MEDS: FLUoxetine CAP* 20 MG PO SCH (08:46)
[2018-10-18] MEDS: Gabapentin CAP(*) 300 MG PO SCH (08:46)
[2018-10-18] MEDS: Nicotine PATCH 14 MG/24 HR* PATCH TRANSDERM SCH (08:46)
[2018-10-18] MEDS: Topiramate TAB(*) 25 MG PO SCH (08:46)
[2018-10-18] MEDS: Lidocaine PATCH 5%* 1 PATCH TRANSDERM SCH (08:47)
[2018-10-18] MEDS: Cyclobenzaprine TAB* 10 MG PO PRN (08:49)
[2018-10-18] MEDS ORDERED: Nicotine Inhaler* 10 MG AMP INH PRN (08:57)
[2018-10-18] MEDS ORDERED: Mouth Piece, Nicotine* 1 EACH CARTRIDGE INH ONE (10:00)
[2018-10-18 11:31] VITALS: BP 135/83
[2018-10-18] MEDS: Azithromycin IV(*) 500 MG in NS 0.9% 250 ML* 250 ML IVPB SCH (13:19)
[2018-10-18] MEDS ORDERED: Azithromycin TAB* 250 MG PO SCH (14:00)
--- NOTE | 2018-10-18 20:11 | PN ---
Subjective Date of Service: 10/18/18 Interval History: patient reports that all of the voices that she has been hearing are gone. patient reports that she feels well. Denies chest pain or shortness of breath. denies abd pain n/v/d. denies fever or chills overnight Family History: Unchanged from Admission Social History: Unchanged from Admission Past Medical History: Unchanged from Admission Objective Oxygen Devices in Use Now: Nasal Cannula Appearance: appears comfortable , no acute distress Eyes: No Scleral Icterus Ears/Nose/Mouth/Throat: Clear Oropharnyx, Mucous Membranes Moist Neck: NL Appearance and Movements; NL JVP, Trachea Midline Respiratory: Symmetrical Chest Expansion and Respiratory Effort, Clear to Auscultation Cardiovascular: NL Sounds; No Murmurs; No JVD, No Edema Abdominal: NL Sounds; No Tenderness; No Distention Extremities: No Edema, No Clubbing, Cyanosis Skin: No Rash or Ulcers Neurological: Alert and Oriented x 3 Nutrition: Taking PO's Result Diagrams: 10/17/18 05:44 10/18/18 05:40 Microbiology and Other Data: Microbiology 10/15/18 00:05 Influenza Types A,B Antigen - Final Nasopharyngeal Specimen received for Influenza A/B Molecular testing Assess/Plan/Problems-Billing Assessment: 53 y/o with recent clonidine use with AMS,hallucinations, leukocytosis sec to possible UTI and Pneumonia - Patient Problems (1) Pneumonia Status: Acute Code(s): J18.9 - PNEUMONIA, UNSPECIFIED ORGANISM SNOMED Code(s ): 880164975 Comment: Patient with elevated WBC on admission, tachycardia, tachypnea and low grade fever- now resolved met sepsis with sepsis 2 criteria - suspect this was related to pneumonia - will continue azithromycin and switch to cefdinir (2) Memory changes Status: Acute Code(s): R41.3 - OTHER AMNESIA SNOMED Code(s): 885101474 Comment: Will check B12- elevated -tsh,free t4 - TSH 0.14 - should have repeat level in 3-4 weeks thiamine level fam h/o early dementia and alz- would recommend outpatient work up - if symptoms continue paitent denies any further episodes of hearing voices polypharmacy - could also be contributing to her memory changes (3) Anemia Status: Acute Code(s): D64.9 - ANEMIA, UNSPECIFIED SNOMED Code(s): 278352373 Comment: suspect this is related to hemodilution - from IVF - paitent denies rectal bleeding or black or tarry stools - recommend repeat cbc in 1 week (4) Hypotension Status: Acute Comment: resolved- SBP 121 today will stop lisinopril Will stop Amlodipine- should follow up with PMD prior to restarting BP medications (5) UTI (urinary tract infection) Status: Acute Comment: NO evidence Blood culture negative - urine cultures negative - no growth (6) Acid reflux Status: Acute Code(s): K21.9 - GASTRO-ESOPHAGEAL REFLUX DISEASE WITHOUT ESOPHAGITIS SNOMED Code(s): 271500784 Comment: continue pepcid and carafate (7) Anxiety Status: Acute Code(s): F41.9 - ANXIETY DISORDER, UNSPECIFIED SNOMED Code(s) : 42018455 Comment: cotinue home medications. (8) Back pain Status: Acute Code(s): M54.9 - DORSALGIA, UNSPECIFIED SNOMED Code(s): 392525725 Comment: continue home medications (9) DVT prophylaxis Status: Acute Code(s): CRC0313 - SNOMED Code(s): 629465398 Comment: SCD's (10) Full code status Status: Acute Code(s): Z78.9 - OTHER SPECIFIED HEALTH STATUS SNOMED Code(s) : 396697684 Status and Disposition: inpatient - discharge home
--- NOTE | 2018-10-19 18:21 | DS ---
DISCHARGE SUMMARY: DATE OF ADMISSION: 10/15/18 DATE OF DISCHARGE: 10/18/18 PROVIDER: Emmy Ryan NP. ATTENDING PHYSICIAN: Dr. Bri Forbes* (dictated by Emmy Ryan NP). PRIMARY CARE PROVIDER: Armen Goodman MD. PRIMARY DIAGNOSES: 1. Pneumonia. 2. Hypokalemia. 3. Hypotension. SECONDARY DIAGNOSES: 1. Type 2 diabetes. 2. Chronic pain. 3. Opioid use. 4. Hypertension. 5. Hyperlipidemia. 6. GERD. 7. Depression. 8. Nephrolithiasis. 9. Opioid disorder. STUDIES COMPLETED WHILE IN THE HOSPITAL: She had a chest x-ray on 10/14/18, radiologist's impression: Probable bronchopneumonia with patchy alveolar consolidation, most prominent in the left mid to upper lobe lung zone. She had a renal ultrasound on 10/15/18, negative renal ultrasound, no conspicuous nephrolithiasis or hydronephrosis. She had an electrocardiogram on 10/14/18, showed sinus tachycardia at a rate of 134. DISCHARGE MEDICATIONS: New home medications: 1. Azithromycin 250 mg one tab. 2. Vantin 200 mg p.o. b.i.d. for 4 more days. Continued home medications: 1. Seroquel 25 mg p.o. at bedtime. 2. Atorvastatin 20 mg p.o. at bedtime. 3. Carafate 1 g p.o. t.i.d. 4. Promethazine 25 mg p.o. q. 8 hours as needed. 5. Lidocaine patch 5%, 1 patch transdermally. 6. Cyclobenzaprine 10 mg p.o. t.i.d. p.r.n. 7. Bethanechol 25 mg p.o. q.i.d. 8. Ranitidine 150 mg p.o. b.i.d. 9. Fluoxetine 40 mg p.o. daily. 10. Suboxone 8 mg/2 mg SL film, 2.5 film p.o. daily. 11. Gabapentin 600 mg p.o. t.i.d. 12. Fioricet 1 tab q. 6 hours as needed. 13. Topiramate 50 mg p.o. b.i.d. 14. Pantoprazole 40 mg p.o. daily. 15. Lantus was decreased to 40 units b.i.d. from 60 units b.i.d. HOSPITAL COURSE: Ms. Simpson is a 53-year-old female with multiple medical problems including type 2 diabetes, chronic pain, opioid use disorder who presented to the emergency room with severe lower abdominal pain and lower back pain for 2 days. She reports she feels disoriented and had repeated falls in the past 2 days. On admission, she states that she had fallen 8 times injuring her forehead and back. She attributed the falls to the initiation of clonidine which was started 2 days prior in [facility]. She stopped this on the day of admission. She also reports she was having hallucinations and talking to people that were not there since starting the medication. The patient is not regularly checking her blood sugar. Her diabetes control is unclear. The patient was seen in the emergency department on 10/01/18. At that point, she had run out of her Suboxone and was having withdrawal symptoms. She has made connection with her addiction treatment center in [place] and has gotten a refill on Suboxone. She last used intervenous drugs in November of 2016. She used to use heroin IV. While in the hospital, the patient did have a renal ultrasound, it did not show any nephrolithiasis or hydronephrosis. She did have a urinalysis and urine culture. Her urine culture was negative for any growth. She did have a chest x- ray that showed bronchopneumonia. She was treated for pneumonia during this hospitalization with azithromycin and ceftriaxone and her symptoms improved. She also has the report of auditory hallucinations and talking to people that were not there since starting the medication of clonidine. Since discontinuing the clonidine, the patient's symptoms did subside, she has had no further auditory hallucinations she reports for 2 days prior to discharge though she did report having auditory hallucinations one day prior to discharge. The patient reports that she is feeling better. She denies any abdominal pain. The patient was given IV hydration during this hospitalization and IV antibiotics for treatment of pneumonia. She did have low potassium levels and was treated with oral and IV potassium with resolution of her hypokalemia. PHYSICAL EXAMINATION: At this time, she is stable for discharge home. Vital signs are as follows: Temperature was 98.2, heart rate 107, respirations 16, O2 saturation 98%, blood pressure 135/83. DISCHARGE PLAN: 1. Pneumonia: She should continue on cefdinir 300 mg p.o. b.i.d. for 4 more days. She should follow up in the [facility] in 4 to 7 days for further evaluation. She has been afebrile and denies shortness of breath at this time. She did meet Sepsis 2 criteria at the time of admission, suspect this was related to her pneumonia. 2. Diabetes: The patient was initially on Lantus 60 units subcu b.i.d. I did decrease her Lantus to 40 units subcu b.i.d. as the patient did have blood sugars of 65 on the day of discharge. The patient was encouraged to check her blood sugars regularly at home. 3. Hypokalemia: The patient did have low potassium during this hospitalization. She was replaced and normal on the day of discharge. 4. Hypotension: The patient's blood pressure was low normal during this hospitalization with systolic blood pressures ranging from 93 to 129. The patient generally has blood pressures running between 93 and 119. Her lisinopril was initially held during his hospitalization. It was not restarted. She did receive amlodipine. I did discontinue her amlodipine as well on the day of discharge due to her soft blood pressures. The patient was instructed to follow up with her primary care provider and restart the medications at the direction of her primary care provider as I am recommending holding her antihypertensive medications while she is being treated for acute infection with pneumonia. 5. Chronic opioid abuse. The patient should continue her Suboxone as previously prescribed. 6. GERD: The patient should continue on ranitidine 150 mg p.o. b.i.d. and pantoprazole 40 mg p.o. daily, Carafate 1 g p.o. t.i.d. 7. Hyperlipidemia: The patient should continue on atorvastatin 20 mg p.o. at bedtime. 8. Chronic pain: The patient should resume home medications as previously prescribed. She did have auditory hallucinations on admission to the hospital. I suspect this could possibly be related to the use of clonidine as these symptoms had resolved upon discontinuing clonidine. It also could be related to polypharmacy as the patient is on multiple medications. On the day of discharge, all of her auditory hallucinations have ceased. She has had no further complaints of auditory hallucinations. The patient should follow up with [facility] as scheduled on 10/25. The patient should return to the emergency room for any changes in mentation, worsening cough, shortness of breath, chest pain or any other concerning symptoms. TIME SPENT: Time spent on this discharge was 60 minutes, greater than half that time was spent with the patient and her discussing discharge plans and instructions. CONDITION ON DISCHARGE: Stable. EMMY RYAN, [employer]NAL[employer]IS GROUP MANAGER [id number]/CPS #: [id number] KYLE
== END 2018-10-18 14:19 | disposition home or self-care (01) | DRG 720 ==
LOC: ED 23:34 → MEDTELE 10-15 03:15
PROVIDERS: ADMIT Internal Medicine; ATTEND Hospitalist
DX: A41.9 Sepsis, unspecified organism (principal); J18.9 Pneumonia, unspecified organism; E11.9 Type 2 diabetes mellitus without complications; G89.29 Other chronic pain; M54.9 Dorsalgia, unspecified; R29.6 Repeated falls; G43.909 Migraine, unspecified, not intractable, without status migrainosus; I10 Essential (primary) hypertension; E78.5 Hyperlipidemia, unspecified; K21.9 Gastro-esophageal reflux disease without esophagitis; F32.9 Major depressive disorder, single episode, unspecified; M19.90 Unspecified osteoarthritis, unspecified site; M54.30 Sciatica, unspecified side; J02.9 Acute pharyngitis, unspecified; F41.9 Anxiety disorder, unspecified; D64.9 Anemia, unspecified; E87.6 Hypokalemia; I95.9 Hypotension, unspecified; F11.10 Opioid abuse, uncomplicated; F17.210 Nicotine dependence, cigarettes, uncomplicated; T50.905A Adverse effect of unspecified drugs, medicaments and biological substances, initial encounter; Z80.0 Family history of malignant neoplasm of digestive organs; Z90.49 Acquired absence of other specified parts of digestive tract; Z82.49 Family history of ischemic heart disease and other diseases of the circulatory system; Z87.442 Personal history of urinary calculi; Z88.0 Allergy status to penicillin; Z88.2 Allergy status to sulfonamides; Z88.8 Allergy status to other drugs, medicaments and biological substances; Z81.1 Family history of alcohol abuse and dependence; Y92.9 Unspecified place or not applicable
CPT/HCPCS: 36415; 71046; 76775; 80048; 80053; 80307; 81003; 81015; 82607; 83605; 84145; 84439; 84443; 84484; 85025; 85610; 86140; 87040; 87086; 93005; 99283; A9270-GY; G8978-GP-CH; G8979-GP-CH; G8980-GP-CH; G8987-GO-CI; G8988-GO-CI; G8989-GO-CI; J0456; J0696; J1885

== ENCOUNTER 2018-11-13 21:34 | Emergency (ER) | payer OTHER ==
--- OUTSIDE RECORDS SUMMARY | 2018-11-13 21:45 | XMS REPORT | Continuity of Care Document ---
:1965 External Reference #:[id number] Author Name Emmy Alfonso Care Team Providers Name Role Phone Armen Goodman MD Primary Care Physician Unavailable Payers Type Date Identification Numbers Payment Provider Subscriber Policy Number: [id number] Cain Simpson PayID: [id number] [address] [place] [address] Advance Directives Description No Information Available Problems Date Description Provider Status Onset: 09/13/2018 Type II diabetes mellitus uncontrolled Armen Goodman MD Active Onset: 09/13/2018 Essential hypertension Armen Goodman MD Active Onset: 09/13/2018 Hyperlipidemia Armen Goodman MD Active Onset: 09/13/2018 Opioid dependence, uncomplicated Armen Goodman MD Active Onset: 09/13/2018 Dyspnea Armen Goodman MD Active Onset: 09/13/2018 Edema Armen Goodman MD Active Onset: 09/13/2018 Tobacco user Armen Goodman MD Active Onset: 09/13/2018 Recurrent major depressive episodes Armen Goodman MD Active Onset: 10/10/2018 Generalized anxiety disorder Armen Goodman MD Active Onset: 10/10/2018 Gastroparesis syndrome Armen Goodman MD Active Onset: 10/10/2018 Gastroduodenitis Armen Goodman MD Active Family History Date Family Member(s) Problem(s) Comments Father Pancreatic Cancer Father due to Pancreatic () Cancer Mother Coronary Artery Disease (CAD) Siblings 2 1 brother, alcoholic, 1 sister- recovering alcoholic, addict, ileostomy Social History Type Date Description Comments Sex Unknown Marital Status Lives With Lives With Son Occupation Unemployed Cigarette Use Pack Years - 20 ETOH Use Never used alcohol Tobacco Use Start: Unknown Light tobacco smoker (10 or fewer cigarettes/day) Recreational Drug Use Denies Drug Use Tobacco Use Start: Unknown Patient is a current smoker, smokes every day Smoking Status Reviewed: 11/07/18 Patient is a current smoker, smokes every day Exercise Type/Frequency Does not exercise Allergies, Adverse Reactions, Alerts Date Description Reaction Status Severity Comments 09/13/2018 Sulfa Antibiotics Active 09/13/2018 Penicillin Active 09/13/2018 Reglan Active Medications Medication Date Status Form Strength Qnty SIG Indications Ordering Provider Steglatro 11/07/ Active Tablets 5mg 30tab 1 by mouth E11.9 Uribe 2018 s every day MD Yoel Clonazepam 10/10/ Active Tablets 0.5mg 12tab one by F41.1 Armen 2017 s mouth three MD Rex times a day as needed anxiety Clonidine HCL 10/10/ Active Tablets 0.1mg 9tabs Take 1 tab F11.20 Armen2017 every 8 MD Rex hours Butalbital/Acetam 09/22/ Active Tablets 50-325-40 14tab 1 by mouth Armen inophen/Caffeine 2018 mg s twice a day MD Rex as needed headache max 2 days/wk Carafate 09/13/ Active Tablets 1gm 240ta take 1 2017 bs tablet by MD Rex mouth 4 times a day Nicotine 09/13/ Active Patches 14mg/24HR 42uni take 1 F17.210 Dian 2018 24HR ts patch Senner, daily. DO Freestyle System 09/13/ Active Kit 1unit For blood E11.65 2017 s glucose MD Rex monitoring. Freestyle Test 09/13/ Active Strips 100un For blood E11.65 2017 its glucose MD Rex monitoring at least 3 times a day. Lancets 09/13/ Active Misc 30G 100un for use E11.65 2017 its with your MD Rex glucometer Basaglar Kwikpen 09/13/ Active Solution 100Unit/M 15ml inject 50U E11.65 2017 Pen-Injec L twice a MD Rex t day. . Admelog 09/13/ Active Solution 100Unit/M 30ml 10U three E11.65 2017 L times a day MD Rex with each meal Insulin 09/13/ Active Misc 30G X 100un For use E11.65 Armen Syringe/0.5ML/30G 20172" 0.5 its with MD Rex X 1/2" ML Admelog three times a day with meals Norvasc / Active Tablets 10mg 1 by mouth Unknown 0000 every day Lipitor / Active Tablets 20mg one tab by Unknown 0000 mouth every night at bedtime Urecholine / Active Tablets 25mg 4 times per Unknown 0000 day Prozac / Active Capsules 40mg 30cap 1 by mouth Armen 0000 s every day MD Rex Neurontin / Active Capsules 300mg 180ca 2 cap by Armen 0000 ps mouth three MD Rex times a day Hydroxyzine HCL / Active Tablets 25mg 1 tablets Unknown 0000 by mouth every 6-8 hours as needed for anxiety Lidocaine / Active Patches 5% apply patch Unknown 0000 up to 12 hours once a day. Lisinopril / Active Tablets 40mg 1 by mouth Unknown 0000 every day Miralax / Active Powder 17 grams by Unknown 0000 mouth every day as needed Seroquel / Active Tablets 25mg take 1 Unknown 0000 tablet by mouth at bedtime Zantac 150 / Active Tablets 150mg 60tab 1 by mouth Armen Maximum Strength 0000 s twice a day MD Rex Cyclobenzaprine / Active Tablets 10mg 30tab 1 tablet by Armen HCL 0000 s mouth q8 MD Rex hours as needed muscle spasms Topiramate / Active Tablets 50mg 1 tab twice Unknown 0000 a day Buprenorphine / Active Tablets 8-2mg 2.5 tabs a Unknown HCL-Naloxone HCL 0000 Sub day as needed Protonix / Active Tablets 40mg 1 by mouth Unknown 0000 DR every day Promethazine HCL / Active Tablets 25mg 90tab 1 by mouth Armen 0000 s every 8 MD Rex hours as needed nausea with headache Fioricet / Hx Capsules 50-300-40 14cap 1 by mouth Armen 0000 - mg s twice a day MD Rex 09/22/ as needed 2017 headache max 2 days/wk Lantus Solostar / Hx Solution 100Unit/M 45ml 40 units Armen 0000 - Pen-Injec L twice daily MD Rex 2017 Phenergan / Hx 25mg 30uni 1 tab every Armen 0000 - ts 6 hours as MD Rex 2017 Clindamycin HCL / Hx Capsules 300mg take one Unknown 0000 - tab three 10/06/ times a 2017 day. Immunizations Description No Information Available Vital Signs Date Vital Result Comment 11/07/2018 9:12am Height 61 inches 5'1" Weight 146.00 lb w/ shoes Heart Rate 145 /min BP Systolic Sitting 144 mmHg BP Diastolic Sitting 89 mmHg BMI (Body Mass Index) 27.6 kg/m2 10/10/2018 1:15pm Height 61 inches 5'1" Weight 136.00 lb Heart Rate 108 /min BP Systolic Sitting 142 mmHg regular adult cuff left arm BP Diastolic Sitting 90 mmHg regular adult cuff left arm Respiratory Rate 20 /min Body Temperature 98.7 F O2 % BldC Oximetry 98 % at rest on room air BMI (Body Mass Index) 25.7 kg/m2 09/13/2018 10:55am Height 61 inches 5'1" Weight 137.00 lb Heart Rate 82 /min BP Systolic 138 mmHg BP Diastolic 78 mmHg Respiratory Rate 16 /min Body Temperature 99.7 F Pain Level 5 abd O2 % BldC Oximetry 97 % BMI (Body Mass Index) 25.9 kg/m2 Results Test Date Facility Test Result H/L Range Note Laboratory test finding 11/07/2018 [facility] Glucose Random 411 Ketones 0.0 Laboratory test 09/13/2018 [facility] Hemoglobin A1c 13.0 % High 4.0-5.[address] (Glyco HGB) [place] [address] [phone] Urine 09/13/2018 [facility] Ur Microalbumin < 15.[address] (mg/L) [place] [address] [phone] Urine Creatinine 44.30 mg/dL Urine Microalbumin/Creatinine TNP <31 2 Comp Metabolic Panel 09/13/2018 [facility] Sodium 142 mmol/L N 135-[address] [place] [address] [phone] Potassium 4.6 mmol/L N 3.5-5.0 Chloride 107 mmol/L N 101-111 Co2 Carbon Dioxide 24 mmol/L N 22-32 Anion Gap 11 mmol/L N 2-11 Glucose 230 mg/dL High 70-100 Blood Urea Nitrogen 12 mg/dL N 6-24 Creatinine 0.59 mg/dL N 0.51-0.95 BUN/Creatinine Ratio 20.3 High 8-20 Calcium 9.5 mg/dL N 8.6-10.3 Total Protein 6.4 g/dL N 6.4-8.9 Albumin 3.8 g/dL N 3.2-5.2 Globulin 2.6 g/dL N 2-4 Albumin/Globulin Ratio 1.5 N 1-3 Total Bilirubin 0.30 mg/dL N 0.2-1.0 Alkaline Phosphatase 116 U/L High 34-104 Alt 14 U/L N 7-52 Ast 17 U/L N 13-39 Egfr Non- 105.8 >60 Egfr 128.0 >60 3 CBC Auto Diff 09/13/2018 [facility] White Blood 5.8 10^3/uL N 3.5-10.[address] [place] [address] [phone] Red Blood Count 4.57 10^6/uL N 4.00-5.40 Hemoglobin 13.1 g/dL N 12.0-16.0 Hematocrit 39 % N 35-47 Mean Corpuscular Volume 85 fL N 80-97 Mean Corpuscular Hemoglobin 29 pg N 27-31 Mean Corpuscular HGB Conc 34 g/dL N 31-36 Red Cell Distribution Width 14 % N 10.5-15 Platelet Count 251 10^3/uL N 150-450 Mean Platelet Volume 9.6 um3 N 7.4-10.4 Abs Neutrophils 3.7 10^3/uL N 1.5-7.7 Abs Lymphocytes 1.7 10^3/uL N 1.0-4.8 Abs Monocytes 0.3 10^3/uL N 0-0.8 Abs Eosinophils 0.1 10^3/uL N 0-0.6 Abs Basophils 0 10^3/uL N 0-0.2 Abs Nucleated RBC 0 10^3/uL Granulocyte % 63.8 % N 38-83 Lymphocyte % 28.9 % N 25-47 Monocyte % 4.9 % N 0-7 Eosinophil % 1.7 % N 0-6 Basophil % 0.7 % N 0-2 Nucleated Red Blood Cells % 0.1 Laboratory test 09/13/2018 [facility] B-Type Natriuretic 46 pg/ mL [address] [place] [address] [phone] 1 Therapeutic target for the treatment of diabetes mellitus patients is <7% HBA1C, and in selective patients <6.0%. Please refer to [place] [employer] diabetic care guidelines for further information. 2 Unable to calculate due to low microalbumin 3 Because ethnic data is not always readily available, this report includes an eGFR for both -Americans and non- Americans. The National Kidney Disease Education Program (NKDEP) does not endorse the use of the MDRD equation for patients that are not between the ages of 18 and 70, are , have extremes of body size, muscle mass, or nutritional status, or are non- or non-. According to the National Kidney Foundation, irrespective of diagnosis, the stage of the disease is based on the level of kidney function: Stage Description GFR(mL/min/1.73 m(2)) 1 Kidney damage with normal or decreased GFR 90 2 Kidney damage with mild decrease in GFR 60-89 3 Moderate decrease in GFR 30-59 4 Severe decrease in GFR 15-29 5 Kidney failure <15 (or dialysis) 4 >100 to <200 pg/mL: likely compensated congestive heart failure (CHF) 200 to 400 pg/mL: likely moderate CHF >400 pg/mL: likely moderate to severe CHF Procedures Date Code Description Status 02/21/2018 [id number] Colonoscopy Completed Encounters Type Date Location Provider Dx Diagnosis [facility] Pneumonia, 9:40a valerio Swanson NP unspecified Hospitalists organism E11.9 Type 2 diabetes mellitus without complications Z79.4 intermediate manager (current) use of insulin F11.10 Opioid abuse, uncomplicated [facility] Pneumonia, 9:40a valerio Swanson NP unspecified Hospitalists organism R41.3 Other amnesia Office Visit 10/16/2018 [facility] Rimma R65.10 Sirs of 9:40a valerio Swanson MD non-infectious Hospitalists origin w/o acute organ dysfunction J18.9 Pneumonia, unspecified organism N39.0 Urinary tract infection, site not specified Office Visit 10/15/2018 [facility] Manny Snyder R65.10 Sirs of 9:39a valerio Swanson, non-infectious Hospitalists Azeem,FACP origin w/o acute organ dysfunction N39.0 Urinary tract infection, site not specified E11.9 Type 2 diabetes mellitus without complications Z79.4 intermediate manager (current) use of insulin F11.11 Opioid abuse, in remission Office Visit 10/10/2018 1:00p [facility] Armen Goodman, F11.20 Opioid dependence, [facility] uncomplicated E11.65 Type 2 diabetes mellitus with hyperglycemia F33.9 Major depressive disorder, recurrent, unspecified K31.84 Gastroparesis F41.1 Generalized anxiety disorder K29.70 Gastritis, unspecified, without bleeding I10 Essential (primary) hypertension E78.5 Hyperlipidemia, unspecified F17.210 Nicotine dependence, cigarettes, uncomplicated Office Visit 09/13/2018 10:00a [facility] Armen Goodman, E11.65 Type 2 diabetes [facility] mellitus with hyperglycemia I10 Essential (primary) hypertension E78.5 Hyperlipidemia, unspecified F11.20 Opioid dependence, uncomplicated R06.02 Shortness of breath R60.0 Localized edema F17.210 Nicotine dependence, cigarettes, uncomplicated F33.9 Major depressive disorder, recurrent, unspecified Plan of Treatment Future Appointment(s):12/07/2018 9:20 am - Rony Diallo MD at [facility]11/28/2018 9:00 am - Armen Goodman MD at [facility]11/07/2018 - Rony Diallo MDE11.9 Type 2 diabetes mellitus without complicationsNew Medication:Steglatro 5 mg - 1 by mouth every dayFollow up:1 monthInstructions:1. Get influenza and pneumonia vaccines at a local pharmacy. 2. Change Basaglar to 50 units ONCE DAILY. 3. Increase Admelog to 15 units WITH MEALS. 4. Start Steglatro 5mg once daily in the morning - for diabetes. 5. Schedule an appointment for abdominal ultrasound. 6. Blood and urine tests today. 7. Return in 1 month for a follow-up visit with your medications.R10.9 Unspecified abdominal painR94.6 Abnormal results of thyroid function studies
--- NOTE | 2018-11-13 21:56 | ED ---
Abdominal Pain/Female - HPI Summary HPI Summary: This patient is a 53 year old F presenting to [facility] with a chief complaint of abdominal pain since 2 weeks ago. Patient reports that she contacted her PCP who set up an US appointment for 11/21/18 but the pain was so bad today she decided to come in. The patient rates the pain 8/10 in severity. Symptoms aggravated by nothing. Symptoms alleviated by nothing. Patient reports abdominal distension. Patient denies recent medication changes, changes in BMs, swelling in the legs. - History of Current Complaint Chief Complaint: EDAbdPain Stated Complaint: ABD PAIN Time Seen by Provider: 11/13/18 21:45 Hx Obtained From: Patient Onset/Duration: Gradual Onset, Lasting Weeks - 2 weeks, Still Present Timing: Constant Severity Initially: Moderate Severity Currently: Moderate Pain Intensity: 8 Pain Scale Used: 0-10 Numeric Location: Diffuse Radiates: No Aggravating Factor(s): Nothing Alleviating Factor(s): Nothing Allergies/Adverse Reactions: Allergies Allergy/AdvReac Type Severity Reaction Status Date / Time metoclopramide Allergy Unknown Unknown Verified 11/13/18 21:38 Reaction Details Sulfa (Sulfonamide Allergy Unknown Hives Verified 11/13/18 21:38 Antibiotics) Penicillins AdvReac Unknown Altered Verified 11/13/18 21:38 Mental Status PMH/Surg Hx/FS Hx/Imm Hx Endocrine/Hematology History: Reports: Hx Diabetes Cardiovascular History: Reports: Hx Hypercholesterolemia, Hx Hypertension Respiratory History: Reports: Hx Chronic Obstructive Pulmonary Disease (COPD) Denies: Hx Asthma GI History: Reports: Hx Ulcer Musculoskeletal History: Reports: Hx Arthritis, Hx Back Problems, Other Musculoskeletal History - sciatica Sensory History: Reports: Hx Contacts or Glasses - READING GLASSES Denies: Hx Legally Blind, Hx Deafness, Hx Hearing Aid Opthamlomology History: Reports: Hx Contacts or Glasses - READING GLASSES Denies: Hx Legally Blind Neurological History: Reports: Hx Migraine Psychiatric History: Reports: Hx Anxiety, Hx Depression - Cancer History Cancer Type, Location and Year: cervical - Surgical History Surgery Procedure, Year, and Place: cholecystectomy and right knee surgery Infectious Disease History: No Infectious Disease History: Denies: Traveled Outside the [place] in Last 30 Days - Family History Known Family History: Positive: Hypertension - Social History Alcohol Use: None Substance Use Type: Reports: None Hx Tobacco Use: Yes Smoking Status (MU): Current Every Day Smoker Amount Used/How Often: anywhere from 2 cigarettes to a pack a day Review of Systems Negative: Fever Negative: Epistaxis Negative: Cough Gastrointestinal: Other - abdominal distension Positive: Abdominal Pain Negative: Edema - no leg swelling All Other Systems Reviewed And Are Negative: Yes Physical Exam - Summary Physical Exam Summary: Appearance: Well-appearing, Well-nourished, lying in bed comfortably Skin: Warm, dry, no obvious rash Eyes: sclera anicteric, no conjunctival pallor ENT: mucous membranes moist, pharynx appears normal Neck: Supple, nontender Respiratory: Clear to auscultation, no signs of respiratory distress Cardiovascular: No murmurs. Tachycardia. Pulse of about 120 bpm. Abdomen: normal active bowel sounds present. Moderate distension, tenderness on right side without peritoneal signs Musculoskeletal: Normal, Strength/ROM Intact, no edema in lower extremities Neurological: A&Ox3, awake and alert, mentation is normal, speech is fluent and appropriate Psychiatric: affect is normal, does not appear anxious or depressed Triage Information Reviewed: Yes Vital Signs On Initial Exam: Initial Vitals Temp Pulse Resp BP Pulse Ox 98.8 F 125 16 139/83 94 11/13/18 21:36 11/13/18 21:36 11/13/18 21:36 11/13/18 21:36 11/13/18 21:36 Vital Signs Reviewed: Yes Diagnostics - Vital Signs Vital Signs Temp Pulse Resp BP Pulse Ox 11/13/18 21:36 98.8 F 125 16 139/83 94 - Laboratory Result Diagrams: 11/13/18 22:03 11/13/18 22:03 Lab Statement: Any lab studies that have been ordered have been reviewed, and results considered in the medical decision making process. - CT CT Abd/Pelvis CT Interpretation Completed By: Radiologist Summary of CT Findings: 1. Cholecystectomy. 2. Appendectomy. 3. Hysterectomy. 4. Hepatomegaly. 5. Old granulomatous disease. Dr. Sharpe has reviewed this report. 2 of 2 Abdominal Pain Fem Course/Dx - Course Course Of Treatment: This patient is a 53 year old F presenting to [facility] with a chief complaint of abdominal pain since 2 weeks ago. The patient rates the pain 8/10 in severity. Patient reports abdominal distension. CT Abd/Pelvis reveals, per radiologist, cholecystectomy, appendectomy, hysterectomy, hepatomegaly, old granulomatous disease. ED physician has reviewed this radiology report. Test results with no significant abnormalities. In the ED course the patient was given contrast. Patient will be discharged home with follow up from PCP. The patient is agreeable with this plan. - Diagnoses Provider Diagnoses: Abdominal distension, Constipation Discharge - Sign-Out/Discharge Documenting (check all that apply): Patient Departure - Discharge Plan Condition: Stable Disposition: HOME Patient Education Materials: Constipation (ED), High Fiber Diet (ED) Referrals: Armen Goodman MD [Primary Care Provider] - Additional Instructions: Fortunately the CT scan did not show any signs of abnormal fluid collections or tumors in the abdomen. You do have a large amount of stool in your colon, and you might benefit from taking a fiber supplement such as citrucel or metamucil to help clear that out. - Billing Disposition and Condition Condition: STABLE Disposition: Home - Attestation Statements Document Initiated by Tracey: Yes Documenting Scribe: Laureen Mendez Provider For Whom Tracey is Documenting (Include Credential): Golden Sharpe MD Scribe Attestation: Laureen Car, shaeed for Golden Sharpe MD on 11/14/18 at 0218. Scribe Documentation Reviewed: Yes Provider Attestation: The documentation as recorded by the Laureen phan accurately reflects the service I personally performed and the decisions made by Golden best MD Status of Scribmayuri Document: Viewed
[2018-11-13 22:11] LABS: ABS Basophils 0.1 10^3/ul (0-0.2); ABS Eosinophils 0.2 10^3/ul (0-0.6); ABS Lymphocytes 2.3 10^3/ul (1.0-4.8); ABS Monocytes 0.4 10^3/ul (0-0.8); ABS Neutrophils 4.5 10^3/ul (1.5-7.7); ABS Nucleated RBC 0 10^3/ul; Eosinophil % 2.6 %; Hematocrit 40 % (35-47); Hemoglobin 13.3 g/dl (12.0-16.0); Lymphocyte % 30.5 %; Mean Corpuscular HGB Conc 34 g/dl (31-36); Mean Corpuscular Hemoglobin 28 pg (27-31); Mean Corpuscular Volume 84 fL (80-97); Mean Platelet Volume 8.7 fL (7.4-10.4); Nucleated Red Blood Cells % 0.1; Platelet Count 197 10^3/ul (150-450); Red Blood Count 4.72 10^6/ul (4.00-5.40); Red Cell Distribution Width 14 % (10.5-15); White Blood Count 7.6 10^3/ul (3.5-10.8)
[2018-11-13 22:26] LABS: EGFR Non-African American 94.6 (>60)
[2018-11-13] MEDS ORDERED: Iodixanol* (CONTRAST) 320 MG/ML 100 ML SDV IV ONE (23:07)
[2018-11-14 00:26] VITALS: BP 141/88
== END 2018-11-14 00:26 | disposition home or self-care (01) ==
LOC: ED 21:34
DX: R14.0 Abdominal distension (gaseous) (principal); K59.00 Constipation, unspecified; R10.9 Unspecified abdominal pain; Z88.0 Allergy status to penicillin; Z88.2 Allergy status to sulfonamides; I10 Essential (primary) hypertension; F17.210 Nicotine dependence, cigarettes, uncomplicated
CPT/HCPCS: 36415; 74177; 80053; 83690; 85025; 99282; Q9967

== ENCOUNTER 2018-12-13 11:14 | Emergency (ER) | payer OTHER ==
--- OUTSIDE RECORDS SUMMARY | 2018-12-13 11:50 | XMS REPORT | Continuity of Care Document ---
:1965 External Reference #:[id number] Author Name Emmy Serna Care Team Providers Name Role Phone Armen Goodman MD Primary Care Physician Unavailable Payers Type Date Identification Numbers Payment Provider Subscriber Policy Number: [id number] Cain Simpson PayID: [id number] [address] [place] [address] Advance Directives Description No Information Available Problems [...] Onset: 10/10/2018 Gastroduodenitis Armen Goodman MD Active Onset: 12/12/2018 Tachycardia Armen Goodman MD Active Onset: 12/12/2018 Right upper quadrant pain Armen Goodman MD Active Onset: 12/12/2018 Type 2 diabetes mellitus Armen Goodman MD Active Onset: 12/12/2018 Long-term current use of insulin Armen Goodman MD Active Onset: 12/12/2018 Pneumonia Armen Goodman MD Active Onset: 12/12/2018 Coordination problem Aremn Goodman MD Active Onset: 12/12/2018 Metabolic encephalopathy Armen Goodman MD Active Onset: 12/12/2018 Constipation Armen Goodman MD Active Family History Date [...] smoker, smokes every day Smoking Status Reviewed: 12/12/18 Patient is a current smoker, smokes every day Exercise Type/Frequency Does not exercise Allergies, Adverse Reactions, Alerts Date Description Reaction Status Severity Comments 09/13/2018 Sulfa Antibiotics Active 09/13/2018 Penicillin Active 09/13/2018 Reglan Active Medications Medication Date Status Form Strength Qnty SIG Indications Ordering Provider Cyclobenzaprine 12/12/ Active Tablets 5mg 90tab take 5mg Armen HCL 2019 s three times MD Rex a day as needed. Senna-Docusate 12/12/ Active Tablets 8.6-50mg 30tab Take 1 K59.00 Armen Sodium 2018 s tablet MD Rex daily Nicotine 12/12/ Active Patches 21mg/24HR 28uni 1 patch Armen Transdermal 2019 24HR ts daily MD Rex System Step 1 Steglatro 11/07/ Active Tablets 5mg 30tab not E11.9 Uribe 2017 s taking-1 by MD Yoel mouth every day Butalbital/Acetam 09/22/ Active Tablets 50-325-40 14tab 1 by mouth Armen inophen/Caffeine 2018 mg s twice a day MD Rex as needed headache max 2 days/wk Carafate 09/13/ Active Tablets 1gm 240ta take 1 Armen 2018 bs tablet by MD Rex mouth 4 times a day Freestyle System 09/13/ Active Kit 1unit For blood E11.65 Armen 2017 s glucose MD Rex monitoring. Freestyle Test 09/13/ Active Strips 100un For blood E11.65 Armen 2018 its glucose MD Rex monitoring at least 3 times a day. Lancets 09/13/ Active Misc 30G 100un for use 2017 its with your MD Rex glucometer Basaglar Kwikpen 09/13/ Active Solution 100Unit/M 15ml inject 50U 2017 Pen-Injec L twice a MD Rex t day. . Admelog 09/13/ Active Solution 100Unit/M 30ml 10U three 2017 L times a day MD Rex with each meal Insulin 09/13/ Active Misc 30G X 100un For use Syringe/0.5ML/30G 2018 1/2" 0.5 its with MD Rex X 1/2" ML Admelog three times a day with meals Norvasc / Active Tablets 10mg 30tab 1 by mouth Armen 0000 s every day MD Rex Lipitor / Active Tablets 20mg 30tab one tab by Armen 0000 s mouth every MD Rex night at bedtime Urecholine / Active Tablets 25mg 4 times per Unknown 0000 day Prozac / Active Capsules 40mg 30cap 1 by mouth Armen 0000 s every day MD Rex Neurontin / Active Capsules 300mg 180ca 2 cap by Armen 0000 ps mouth three MD Rex times a day Lidocaine / Active Patches 5% apply patch Unknown 0000 up to 12 hours once a day. Lisinopril / Active Tablets 40mg 1 by mouth Unknown 0000 every day Miralax / Active Powder 17 grams by Unknown 0000 mouth every day as needed Seroquel / Active Tablets 25mg 30tab take 1 Armen 0000 s tablet by MD Rex mouth at bedtime Zantac 150 / Active Tablets 150mg 60tab 1 by mouth Armen Maximum Strength 0000 s twice a day MD Rex Topiramate / Active Tablets 50mg 1 tab [...] Rex hours as needed nausea with headache Clonazepam 10/10/ Hx Tablets 0.5mg 12tab one by F41.1 Armen 2018 - s mouth three MD Rex 10/14/ times a day 2018 as needed anxiety Clonidine HCL 10/10/ Hx Tablets 0.1mg 9tabs Take 1 tab F11.20 Armen 2018 - every 8 MD Rex 10/14/ hours 2018 Nicotine 09/13/ Hx Patches 14mg/24HR 42uni take 1 F17.210 Dian 2018 - 24HR ts patch Senner, 12/12/ daily. DO 2019 Fioricet / Hx Capsules 50-300-40 14cap 1 by mouth Armen 0000 - mg s twice a day MD Rex 09/22/ as needed 2018 headache max 2 days/wk Hydroxyzine HCL / Hx Tablets 25mg 1 tablets Unknown 0000 - by mouth 12/12/ every 6-8 2019 hours as needed for anxiety Lantus Solostar / Hx Solution 100Unit/M 45ml 40 units Armen 0000 - Pen-Injec L twice daily MD Rex 2017 Cyclobenzaprine / Hx Tablets 10mg 30tab 1 tablet by Armen HCL 0000 - s mouth q8 MD Rex 12/12/ hours as 2019 needed muscle spasms Phenergan / Hx 25mg 30uni 1 tab every Armen 0000 - ts 6 hours as MD Rex 09/13/ needed 2018 Clindamycin HCL / Hx Capsules 300mg take one Unknown 0000 - tab three 10/06/ times a 2017 day. Immunizations Description No Information Available Vital Signs Date Vital Result Comment 12/12/2018 2:58pm Weight 145.00 lb Heart Rate 118 /min BP Systolic 154 mmHg BP Diastolic 88 mmHg Respiratory Rate 18 /min Body Temperature 100.0 F Pain Level 6 O2 % BldC Oximetry 95 % 11/07/2018 9:12am Height 61 inches 5'1" Weight [...] Date Facility Test Result H/L Range Note Urinalysis Profile 12/12/2018 [facility] Urine Color Yellow [address] [place] [address] [phone] Urine Appearance Clear Urine Specific [place] 1.017 N 1.010-1.030 Urine pH 5.0 N 5-9 Urine Urobilinogen Negative Negative Urine Ketones Negative Negative Urine Protein Negative Negative Urine Leukocytes Negative Negative Urine Blood 1+ Abnormal Negative Urine Nitrite Negative Negative Urine Bilirubin Negative Negative Urine Glucose 3+(>=500 mg/dL) Abnormal Negative Urine White Blood Cell Trace(0-5/hpf) Absent Urine Red Blood Cell Trace(0-2/hpf) Absent Urine Bacteria 1+ Abnormal Absent Laboratory test 12/12/2018 [facility] Ammonia 41 mcmol/L N 16- 53 finding [address] [place] [address] [phone] CBC Auto Diff 12/12/2018 [facility] White Blood 7.2 10^3/uL N 3.5-10.8 [address] [facility] [place] [address] [phone] Red Blood Count 4.96 10^6/uL N 4.00-5.40 Hemoglobin 13.7 g/dL N 12.0-16.0 Hematocrit 41 % N 35-47 Mean Corpuscular Volume 83 fL N 80-97 Mean Corpuscular Hemoglobin 28 pg N 27-31 Mean Corpuscular HGB Conc 33 g/dL N 31-36 Red Cell Distribution Width 14 % N 10.5-15 Platelet Count 215 10^3/uL N 150-450 Mean Platelet Volume 9.1 fL N 7.4-10.4 Abs Neutrophils 4.4 10^3/uL N 1.5-7.7 Abs Lymphocytes 2.3 10^3/uL N 1.0-4.8 Abs Monocytes 0.4 10^3/uL N 0-0.8 Abs Eosinophils 0.1 10^3/uL N 0-0.6 Abs Basophils 0 10^3/uL N 0-0.2 Abs Nucleated RBC 0 10^3/uL Granulocyte % 61.0 % Lymphocyte % 32.5 % Monocyte % 5.1 % Eosinophil % 0.7 % Basophil % 0.7 % Nucleated Red Blood Cells % 0 Laboratory test 12/12/2018 [facility] Hemoglobin A1c <pending> finding [address] (Glyco HGB) [place] [address] [phone] CBC Auto Diff 11/13/2018 [facility] White Blood 7.6 10^3/uL N 3.5-[address] Count [address] [place] [address] [phone] Red Blood Count 4.72 10^6/uL N 4.00-5.40 Hemoglobin 13.3 g/dL N 12.0-16.0 Hematocrit 40 % N 35-47 Mean Corpuscular Volume 84 fL N 80-97 Mean Corpuscular Hemoglobin 28 pg N 27-31 Mean Corpuscular HGB Conc 34 g/dL N 31-36 Red Cell Distribution Width 14 % N 10.5-15 Platelet Count 197 10^3/uL N 150-450 Mean Platelet Volume 8.7 fL N 7.4-10.4 Abs Neutrophils 4.5 10^3/uL N 1.5-7.7 Abs Lymphocytes 2.3 10^3/uL N 1.0-4.8 Abs Monocytes 0.4 10^3/uL N 0-0.8 Abs Eosinophils 0.2 10^3/uL N 0-0.6 Abs Basophils 0.1 10^3/uL N 0-0.2 Abs Nucleated RBC 0 10^3/uL Granulocyte % 59.8 % Lymphocyte % 30.5 % Monocyte % 5.8 % Eosinophil % 2.6 % Basophil % 1.3 % Nucleated Red Blood Cells % 0.1 Comp Metabolic Panel 11/13/2018 [facility] Sodium 136 mmol/L N 135-[address] [place] [address] [phone] Potassium 3.9 mmol/L N 3.5-5.0 Chloride 105 mmol/L N 101-111 Co2 Carbon Dioxide 21 mmol/L Low 22-32 Anion Gap 10 mmol/L N 2-11 Glucose 219 mg/dL High 70-100 Blood Urea Nitrogen 20 mg/dL N 6-24 Creatinine 0.65 mg/dL N 0.51-0.95 BUN/Creatinine Ratio 30.8 High 8-20 Calcium 9.4 mg/dL N 8.6-10.3 Total Protein 7.0 g/dL N 6.4-8.9 Albumin 4.0 g/dL N 3.2-5.2 Globulin 3.0 g/dL N 2-4 Albumin/Globulin Ratio 1.3 N 1-3 Total Bilirubin 0.20 mg/dL N 0.2-1.0 Alkaline Phosphatase 125 U/L High 34-104 Alt 21 U/L N 7-52 Ast 17 U/L N 13-39 Egfr Non- 94.6 >60 Egfr 114.5 >60 1 Laboratory test 11/13/2018 [facility] Lipase 44 U/L N 11.0- 82.[address] [place] [address] [phone] Urine 11/07/2018 [facility] Ur Microalbumin 17.8 Microalbumin 101 (mg/L) [place] [address] [phone] Urine Creatinine 68.85 mg/dL Urine Microalbumin/Creatinine 25.8 N <31 Laboratory test 11/07/2018 [facility] C-Peptide 3.0 ng/mL 1.1 - 4.[address] [place] [address] [phone] Glucose 360 mg/dL High 70-100 TSH (Thyroid Stim Horm) 1.32 mcIU/mL N 0.34-5.60 Free T4 (Free Thyroxine) 0.65 ng/dL N 0.61-1.12 Laboratory test finding 11/07/2018 [facility] House Glucose Random 411 Ketones 0.0 Laboratory test 09/13/2018 [facility] Hemoglobin A1c 13.0 % High 4.0-5.6 3 finding 101 (Glyco HGB) [place] [address] [phone] Urine 09/13/2018 [facility] Ur Microalbumin < 15.[address] (mg/L) [place] [address] [phone] Urine Creatinine 44.30 mg/dL Urine Microalbumin/Creatinine TNP <31 4 Comp Metabolic Panel 09/13/2018 [facility] Sodium 142 mmol/L N 135-[address] [place] [address] [phone] Potassium 4.6 mmol/L N 3.5-5.0 Chloride 107 [...] Egfr Non- 105.8 >60 Egfr 128.0 >60 5 CBC Auto Diff 09/13/2018 [facility] White Blood 5.8 10^3/uL N 3.5-10.[address] [place] [address] [phone] Red Blood Count 4.57 10^6/uL N 4.00-5.40 [...] Blood Cells % 0.1 Laboratory test 09/13/2018 [facility] B-Type Natriuretic 46 pg/ mL [address] [place] [address] [phone] 1 Because ethnic data is not always readily [...] 15-29 5 Kidney failure <15 (or dialysis) 2 Test Performed by: [facility] [address] [place] [address] 3 Therapeutic target for the treatment of diabetes mellitus patients is <7% HBA1C, and in selective patients <6.0%. Please refer to [place] [employer] diabetic care guidelines for further information. 4 Unable to calculate due to low microalbumin 5 Because ethnic data is not always readily [...] 15-29 5 Kidney failure <15 (or dialysis) 6 >100 to <200 pg/mL: likely compensated congestive heart failure (CHF) 200 to 400 pg/mL: likely moderate CHF >400 pg/mL: likely moderate to severe CHF Procedures Date Code Description Status 02/21/2018 [id number] Colonoscopy Completed Encounters Type Date Location Provider Dx Diagnosis Office Visit 11/07/2018 [facility] Rony Diallo MD Z79.4 senior living 9:20a [facility]ocr[facility]ology of [facility] (current) use of insulin E11.9 Type 2 diabetes mellitus without complications R10.9 Unspecified abdominal pain R94.6 Abnormal results of thyroid function studies F41.1 Generalized anxiety disorder Office Visit 10/18/2018 [facility] J18.9 Pneumonia, 9:40a valerio Swanson NP unspecified Hospitalists organism E11.9 Type 2 diabetes mellitus without complications 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 F11.10 Opioid abuse, uncomplicated Office Visit 10/17/2018 [facility] J18.9 Pneumonia, 9:40a valerio Swanson NP unspecified Hospitalists organism R41.3 Other amnesia Office Visit 10/16/2018 [facility] Rimma R65.10 Sirs of 9:40a valerio Swanson MD non-infectious Hospitalists origin w/o acute organ dysfunction J18.9 Pneumonia, unspecified organism N39.0 Urinary tract infection, site not specified Office Visit 10/15/2018 [facility] Manny Snyder R65.10 Sirs of 9:39a valerio Swanson non-infectious Hospitalists Azeem,FACP origin w/o acute organ dysfunction N39.0 Urinary tract infection, site not specified E11.9 Type 2 diabetes mellitus without complications Z79.4 senior living (current) use of insulin F11.11 Opioid abuse, in remission Office Visit 10/10/2018 1:00p [facility] Armen Goodman, F11.20 Opioid dependence, [facility] uncomplicated E11.65 Type 2 diabetes mellitus with hyperglycemia F33.9 Major depressive disorder, recurrent, unspecified K31.84 Gastroparesis F41.1 Generalized anxiety disorder K29.70 Gastritis, unspecified, without bleeding I10 Essential (primary) hypertension E78.5 Hyperlipidemia, unspecified F17.210 Nicotine dependence, cigarettes, uncomplicated Office Visit 09/13/2018 10:00a [facility] Armen Goodman, E11.65 Type 2 diabetes [facility] mellitus with hyperglycemia I10 Essential (primary) hypertension E78.5 Hyperlipidemia, unspecified F11.20 Opioid dependence, uncomplicated R06.02 Shortness of breath R60.0 Localized edema F17.210 Nicotine dependence, cigarettes, uncomplicated F33.9 Major depressive disorder, recurrent, unspecified Plan of Treatment 12/12/2018 - Armen Goodman, MDR00.0 Tachycardia, ixxknrnexwoE59.11 Right upper quadrant painE11.9 Type 2 diabetes mellitus without cxtivygjpdleyY36.4 senior living (current) use of lldyxfyU65.9 Pneumonia, unspecified iikkoogoV30.8 Other lack of yuypycexwztcL23.41 Metabolic uqedzzdsphniqvZ65.00 Constipation, unspecifiedNew Medication:Senna-Docusate Sodium 8.6-50 mg - Take 1 tablet daily
[2018-12-13 15:51] VITALS: BP 165/107
--- NOTE | 2018-12-17 06:45 | ED ---
Skin Complaint - HPI Summary HPI Summary: Pt presents w/ rash in areas along lower abdomen x 3 days These are well defined areas of redness and soreness which are specific to her injection sites for insulin. Reports she injects insulin regularly and has not had any change in her medication, needle, etc and always cleans each area with alcohol prior to administration of medication. Also denies change in detergent, environmental exposure, food/tamy's, etc. Subjective fever since but no dana chills, nausea, vomiting. Glucose level well controlled. Pt was seen yesterday by Dr. Goodman at [facility]. Blood work reveals CBC WNL, CMP appears benign - glucose well controlled (although HGA1C 10.8%). U/A w / + blood, + glucose. CXR are negative for acute cardiopulm dz. 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 Pain Intensity: 7 Pain Scale Used: 0-10 Numeric - Additional Pertinent History Primary Care Physician: BELINDA - Allergy/Home Medications Allergies/Adverse Reactions: Allergies Allergy/AdvReac Type Severity Reaction Status Date / Time metoclopramide Allergy Unknown Unknown Verified 12/13/18 11:33 Reaction Details Sulfa (Sulfonamide Allergy Unknown Hives Verified 12/13/18 11:33 Antibiotics) Penicillins AdvReac Unknown Altered Verified 12/13/18 11:33 Mental Status PMH/Surg Hx/FS Hx/Imm Hx Previously Healthy: Yes Endocrine/Hematology History: Reports: Hx Diabetes - IDD Cardiovascular History: Reports: Hx Hypercholesterolemia, Hx Hypertension Respiratory History: Reports: Hx Chronic Obstructive Pulmonary Disease (COPD) Denies: Hx Asthma GI History: Reports: Hx Ulcer History: Denies: Hx Renal Disease Musculoskeletal History: Reports: Hx Arthritis, Hx Back Problems, Other Musculoskeletal History - sciatica Sensory History: Reports: Hx Contacts or Glasses - READING GLASSES Denies: Hx Legally Blind, Hx Deafness, Hx Hearing Aid Opthamlomology History: Reports: Hx Contacts or Glasses - READING GLASSES Denies: Hx Legally Blind Neurological History: Reports: Hx Migraine Psychiatric History: Reports: Hx Anxiety, Hx Depression - Cancer History Cancer Type, Location and Year: cervical - Surgical History Surgery Procedure, Year, and Place: cholecystectomy and right knee surgery Infectious Disease History: No Infectious Disease History: Denies: Traveled Outside the [place] in Last 30 Days - Family History Known Family History: Positive: Hypertension - Social History Lives: With Family Alcohol Use: None Hx Substance Use: No Substance Use Type: Reports: None Hx Tobacco Use: Yes Smoking Status (MU): Current Every Day Smoker Amount Used/How Often: anywhere from 2 cigarettes to a pack a day Review of Systems Constitutional: Negative Eyes: Negative ENT: Negative Cardiovascular: Negative Respiratory: Negative Gastrointestinal: Negative Genitourinary: Negative Musculoskeletal: Negative Positive: Rash Neurological: Negative Psychological: Normal All Other Systems Reviewed And Are Negative: Yes Physical Exam Triage Information Reviewed: Yes Vital Signs On Initial Exam: Initial Vitals Temp Pulse Resp BP Pulse Ox 98.9 F 118 16 178/101 96 12/13/18 11:27 12/13/18 11:27 12/13/18 11:27 12/13/18 11:27 12/13/18 11:27 Vital Signs Reviewed: Yes Appearance: Positive: Well-Appearing, No Pain Distress, Well-Nourished Skin: Positive: Warm, Skin Color Reflects Adequate Perfusion, Dry - patches of well demarcated erythema over abdomen specific to injection sites (each has a pinpoint area of scab) - warm to touch, raised, TTP - no flaking, no fluctuance , no induration Head/Face: Positive: Normal Head/Face Inspection Eyes: Positive: Normal ENT: Positive: Normal ENT inspection, Hearing grossly normal, Pharynx normal - mucosa moist Neck: Positive: Supple Respiratory/Lung Sounds: Positive: Breath Sounds Present Cardiovascular: Positive: Normal Abdomen Description: Positive: Nontender, No Organomegaly, Soft Bowel Sounds: Positive: Present Musculoskeletal: Positive: Normal, Strength/ROM Intact Neurological: Positive: Normal, Sensory/Motor Intact, Alert, Oriented to Person Place, Time, CN Intact II-III Psychiatric: Positive: Normal - [place] Coma Scale Best Eye Response: 4 - Spontaneous Best Motor Response: 6 - Obeys Commands Best Verbal Response: 5 - Oriented Coma Scale Total: 15 Diagnostics - Vital Signs Vital Signs Temp Pulse Resp BP Pulse Ox 12/13/18 15:50 98 F 107 16 165/107 97 12/13/18 13:32 98.4 F 112 98 12/13/18 11:27 98.9 F 118 16 178/101 96 - Laboratory Lab Results: Lab Results 12/13/18 Range/Units 14:28 POC Glucose (mg/dL) 171 H (70-100) mg/dL Lab Statement: Any lab studies that have been ordered have been reviewed, and results considered in the medical decision making process. Course/Dx - Course Course Of Treatment: Discussed case w/ Dr. Goodman. Reports yesterday was their first visit together and skin issue was mild then - no further concerns. Discussed w/ pt (local reaction v. cellulitis/infection). Will start anbx and advised close f/u w/ Dr. Goodman - danger s/sx of when to return to ED reviewed w/ pt. She and partner agree w/ plan. - Diagnoses Provider Diagnoses: Cellulitis, Rash Discharge - Sign-Out/Discharge Documenting (check all that apply): Patient Departure - Discharge Plan Condition: Stable Disposition: HOME Prescriptions: DOXYcycline CAP(*) [DOXYcycline 100MG CAP(*)] 100 mg PO BID #20 cap Patient Education Materials: Cellulitis (ED), Acute Rash (ED) Referrals: Armen Goodman MD [Primary Care Provider] - Additional Instructions: The definitive cause of your rash is not identified today however given your clinical presentation, lab results and worsening of rash along increased heart rate and subjective fever, an antibiotic will be initiated. It is important that you follow-up with Dr. Goodman at the end of the week to recheck these areas. Call today to schedule an appointment by Wednesday. For pain, swelling and discomfort, you may apply ice to the areas and take ibuprofen with food along with ZYRTEC if itching keeps you up at night. *If worse, return to the ED - Billing Disposition and Condition Condition: STABLE Disposition: Home
== END 2018-12-13 15:50 | disposition home or self-care (01) ==
LOC: ED 11:14
DX: L03.90 Cellulitis, unspecified (principal); R21 Rash and other nonspecific skin eruption
CPT/HCPCS: 99282

== ENCOUNTER 2018-12-16 19:58 | Emergency (ER) | payer OTHER ==
--- OUTSIDE RECORDS SUMMARY | 2018-12-16 20:22 | XMS REPORT | Continuity of Care Document ---
:1965 External Reference #:[id number] Author Name Kareem Emmy Care Team Providers Name Role Phone Armen Goodman MD Primary Care Physician Unavailable Payers Type Date Identification Numbers Payment Provider Subscriber Policy Number: [id number] Cain Simpson PayID: [id number] [address] [place] [address] Advance Directives Description No Information Available Problems [...] Goodman MD Active Onset: 12/12/2018 Coordination problem Armen Goodman MD Active Onset: 12/12/2018 Metabolic encephalopathy [...] - every 8 MD Rex 10/14/ hours 2017 Nicotine 09/13/ Hx Patches 14mg/24HR 42uni take 1 F17.210 Dian 2018 - 24HR ts patch Senner, 12/12/ daily. DO 2018 Fioricet / Hx Capsules 50-300-40 14cap 1 [...] - ts 6 hours as MD Rex needed 2018 Clindamycin HCL / Hx Capsules [...] Test Result H/L Range Note Laboratory test 12/13/2018 [facility] Point of Care 171 mg/dL High 70-100 [address] [place] [address] [phone] Laboratory test 12/12/2018 [facility] Hemoglobin A1c 10.8 % High 4.0-5.[address] (Glyco HGB) [place] [address] [phone] Comp Metabolic 12/12/2018 [facility] Sodium 139 mmol/L N 135- [address] [place] [address] [phone] Potassium 3.9 mmol/L N 3.5-5.0 Chloride 104 mmol/L N 101-111 Co2 Carbon Dioxide 27 mmol/L N 22-32 Anion Gap 8 mmol/L N 2-11 Glucose 117 mg/dL High 70-100 Blood Urea Nitrogen 14 mg/dL N 6-24 Creatinine 0.55 mg/dL N 0.51-0.95 BUN/Creatinine Ratio 25.5 High 8-20 Calcium 9.6 mg/dL N 8.6-10.3 Total Protein 6.6 g/dL N 6.4-8.9 Albumin 4.2 g/dL N 3.2-5.2 Globulin 2.4 g/dL N 2-4 Albumin/Globulin Ratio 1.8 N 1-3 Total Bilirubin 0.20 mg/dL N 0.2-1.0 Alkaline Phosphatase 120 U/L High 34-104 Alt 19 U/L N 7-52 Ast 15 U/L N 13-39 Egfr Non- 114.8 >60 Egfr 138.9 >60 3 CBC Auto Diff 12/12/2018 [facility] White Blood 7.2 10^3/uL N 3.5-10.[address] [place] [address] [phone] Red Blood Count 4.96 10^6/uL N 4.00-5.40 [...] Blood Cells % 0 Laboratory test 12/12/2018 [facility] Ammonia 41 mcmol/L N 16- 53 finding [address] [place] [address] [phone] Urinalysis Profile 12/12/2018 [facility] Urine Color Yellow [address] [place] [address] [phone] Urine Appearance Clear Urine Specific [place] 1.017 N 1.010-1.030 Urine pH 5.0 N 5-9 Urine Urobilinogen Negative Negative Urine Ketones Negative Negative Urine Protein Negative Negative Urine Leukocytes Negative Negative Urine Blood 1+ Abnormal Negative Urine Nitrite Negative Negative Urine Bilirubin Negative Negative Urine Glucose 3+(>=500 mg/dL) Abnormal Negative Urine White Blood Cell Trace(0-5/hpf) Absent Urine Red Blood Cell Trace(0-2/hpf) Absent Urine Bacteria 1+ Abnormal Absent Urine Culture And 12/12/2018 [facility] Urine Culture SEE RESULT [address] [place] [address] [phone] CBC Auto Diff 11/13/2018 [facility] White Blood 7.6 10^3/uL N 3.5-[address] Count [address] [place] [address] [phone] Red Blood Count 4.72 10^6/uL N 4.00-5.40 [...] Cells % 0.1 Comp Metabolic Panel 11/13/2018 [facility] Sodium 136 mmol/L N 135-[address] [place] [address] [phone] Potassium 3.9 mmol/L N 3.5-5.0 Chloride 105 [...] Egfr Non- 94.6 >60 Egfr 114.5 >60 5 Laboratory test 11/13/2018 [facility] Lipase 44 U/L N 11.0- 82.[address] [place] [address] [phone] Laboratory test 11/07/2018 [facility] In House Glucose Random 411 finding Ketones 0.0 Laboratory test 11/07/2018 [facility] C-Peptide 3.0 ng/mL 1.1 - 4.4 [address] [place] [address] [phone] Glucose 360 mg/dL High 70-100 TSH (Thyroid Stim Horm) 1.32 mcIU/mL N 0.34-5.60 Free T4 (Free Thyroxine) 0.65 ng/dL N 0.61-1.12 Urine Microalbumin 11/07/2018 [facility] Ur Microalbumin 17.[address] (mg/L) [place] [address] [phone] Urine Creatinine 68.85 mg/dL Urine Microalbumin/Creatinine 25.8 N <31 Laboratory test 09/13/2018 [facility] Hemoglobin A1c 13.0 % High 4.0-5.[address] (Glyco HGB) [place] [address] [phone] Urine 09/13/2018 [facility] Ur Microalbumin < 15.[address] (mg/L) [place] [address] [phone] Urine Creatinine 44.30 mg/dL Urine Microalbumin/Creatinine TNP <31 8 Comp Metabolic Panel 09/13/2018 [facility] Sodium 142 mmol/L N 135-[address] [place] [address] [phone] Potassium 4.6 mmol/L N 3.5-5.0 Chloride 107 [...] Egfr Non- 105.8 >60 Egfr 128.0 >60 9 CBC Auto Diff 09/13/2018 [facility] White Blood 5.8 10^3/uL N 3.5-10.[address] [place] [address] [phone] Red Blood Count 4.57 10^6/uL N 4.00-5.40 [...] Blood Cells % 0.1 Laboratory test 09/13/2018 [facility] B-Type Natriuretic 46 pg/ mL [address] [place] [address] [phone] 1 Floor Polisher: [id number] 2 Therapeutic target for the treatment of diabetes mellitus patients is <7% HBA1C, and in selective patients <6.0%. Please refer to [place] [employer] diabetic care guidelines for further information. 3 Because ethnic data is not always [...] 5 Kidney failure <15 (or dialysis) 4 SEE RESULT BELOW Name: MILAGROSPROSPEREVIE : [address]: Armen Goodman MD Acct: [id number] Unit: [id number] AGE: 53 Location: LAB Re12/12/18 SEX: F Status: REG REF SPEC: [id number] UZAIR: 12/12/18 [facility] DR: Armen Goodman MD REQ: [id number] RECD: 12/12/18 STATUS: COMP _ SOURCE: URINE SPDESC: ORDERED: Urine Culture Procedure Result Reported Site Urine Culture Final 12/13/18- 1602 ML No growth of clinically significant organisms * ML - Main Lab . END OF REPORT DEPARTMENT OF PATHOLOGY, [address] [place] [address] Hu Koch M.D. Director [facility] # [id number] 5 Because ethnic data is not always [...] 5 Kidney failure <15 (or dialysis) 6 Test Performed by: [facility] [address] [facility], [place] [address] 7 Therapeutic target for the treatment of diabetes mellitus patients is <7% HBA1C, and in selective patients <6.0%. Please refer to [place] [employer] diabetic care guidelines for further information. 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 Pneumonia, 9:40a Assoc,valerio Ryan, ALONDRA unspecified Hospitalists organism R41.3 Other amnesia Office Visit 10/16/2018 [facility] Rimma R65.10 Sirs of 9:40a Assoc,valerio Guajardo MD non-infectious Hospitalists origin w/o acute organ dysfunction J18.9 Pneumonia, unspecified organism N39.0 Urinary tract infection, site not specified Office Visit 10/15/2018 [facility] Manny Snyder R65.10 Sirs of 9:39a Assoc,valerio Duarte non-infectious Hospitalists M.DSoraida,FACP origin w/o acute organ dysfunction N39.0 Urinary tract infection, site not specified E11.9 Type 2 diabetes mellitus without complications Z79.4 senior living (current) use of insulin F11.11 Opioid abuse, in remission Office Visit 10/10/2018 1:00p [facility] Armen Goodman, F11.20 Opioid dependence, [facility] uncomplicated E11.65 Type 2 diabetes mellitus with hyperglycemia F33.9 Major depressive disorder, recurrent, unspecified K31.84 Gastroparesis F41.1 Generalized anxiety disorder K29.70 Gastritis, unspecified, without bleeding I10 Essential (primary) hypertension E78.5 Hyperlipidemia, unspecified F17.210 Nicotine dependence, cigarettes, uncomplicated Office Visit 09/13/2018 10:00a [facility] Armen Goodman, E11.65 Type 2 diabetes [facility] mellitus with hyperglycemia I10 Essential (primary) hypertension E78.5 Hyperlipidemia, unspecified F11.20 Opioid dependence, uncomplicated R06.02 Shortness of breath R60.0 Localized edema F17.210 Nicotine dependence, cigarettes, uncomplicated F33.9 Major depressive disorder, recurrent, unspecified Plan of Treatment 12/12/2018 - Armen Goodman, MDR10.11 Right upper quadrant painComments:Suspect etiology of postprandial abdominal pain + nausea + vomiting is her severe diabetic gastroparesis with inability to tolerate Reglan or Erythromycin. Continue Urecholine. f/u with [facility] these upcoming few weeks and eventually establish with local GI.R00.0 Tachycardia, unspecifiedComments:Rule out other cause of infectious etiology.K31.84 XktzffbmocxegK46.9 Type 2 diabetes mellitus without complicationsComments:Continue Lantus 50U BID + Admelog 10 U qacRecheck A1c. f/u with Dr. Diallo.Z79.4 terminologist (current) use of ifcjsndA35.9 Pneumonia, unspecified organismComments:Get follow-up CXR to confirm resolution.R27.8 Other lack of tpnccyocbjkxQ40.41 Metabolic encephalopathyComments:Rule out hepatic encephalopathy as cause of memory issues. She has fine low amplitude negative myoclonus.K59.00 Constipation, unspecifiedNew Medication:Senna- Docusate Sodium 8.6-50 mg - Take 1 tablet daily
[2018-12-17] MEDS ORDERED: NS 0.9% 1000 ML*IV.FLUID IV ONE (01:14)
[2018-12-17] MEDS ORDERED: Clindamycin 900 MG IVPREMIX(* 900 MG/50 ML SDV IV ONE (01:15)
--- NOTE | 2018-12-17 01:15 | ED ---
Skin Complaint - HPI Summary HPI Summary: This patient is a 53 year old F presenting to [facility] with a chief complaint of painful, hardened, erythematous regions on her abdomen since 6 days ago. Pt said she was seen at [facility] on 12/13/18 for the same symptoms but notes that the areas have become more painful. Patient notes that she usually injects insulin into her abd but she hasnt since the onset of symptoms. The patient rates the pain 6/10 in severity. Symptoms aggravated by nothing. Symptoms alleviated by nothing. Hx DM, HCL, HTN - History of Current Complaint Chief Complaint: EDRashSkinAbscess Time Seen by Provider: 12/17/18 00:45 Stated Complaint: ABD PAIN Hx Obtained From: Patient Onset/Duration: Started Days Ago - 6 days, Atraumatic, Still Present Skin Exposure Onset/Duration: Days Ago - 6 days, Worse Since: - 4 days ago Timing: Constant Onset Severity: Mild Current Severity: Moderate Pain Intensity: 8 Pain Scale Used: 0-10 Numeric Skin Location: Abdomen Aggravating Symptom(s): Nothing Alleviating Symptom(s): Nothing Associated Signs & Symptoms: Tenderness Related History: Diabetes - Additional Pertinent History Primary Care Physician: BELINDA - Allergy/Home Medications Allergies/Adverse Reactions: Allergies Allergy/AdvReac Type Severity Reaction Status Date / Time metoclopramide Allergy Unknown Unknown Verified 12/13/18 11:33 Reaction Details Sulfa (Sulfonamide Allergy Unknown Hives Verified 12/13/18 11:33 Antibiotics) Penicillins AdvReac Unknown Altered Verified 12/13/18 11:33 Mental Status PMH/Surg Hx/FS Hx/Imm Hx Endocrine/Hematology History: Reports: Hx Diabetes Cardiovascular History: Reports: Hx Hypercholesterolemia, Hx Hypertension Respiratory History: Reports: Hx Chronic Obstructive Pulmonary Disease (COPD) Denies: Hx Asthma GI History: Reports: Hx Ulcer History: Denies: Hx Renal Disease Musculoskeletal History: Reports: Hx Arthritis, Hx Back Problems, Other Musculoskeletal History - sciatica Sensory History: Reports: Hx Contacts or Glasses - READING GLASSES Denies: Hx Legally Blind, Hx Deafness, Hx Hearing Aid Opthamlomology History: Reports: Hx Contacts or Glasses - READING GLASSES Denies: Hx Legally Blind Neurological History: Reports: Hx Migraine Psychiatric History: Reports: Hx Anxiety, Hx Depression - Cancer History Cancer Type, Location and Year: cervical - Surgical History Surgery Procedure, Year, and Place: cholecystectomy and right knee surgery Infectious Disease History: No Infectious Disease History: Denies: Traveled Outside the [place] in Last 30 Days - Family History Known Family History: Positive: Hypertension - Social History Alcohol Use: None Substance Use Type: Reports: None Hx Tobacco Use: Yes Smoking Status (MU): Current Every Day Smoker Amount Used/How Often: anywhere from 2 cigarettes to a pack a day Review of Systems Negative: Fever Negative: Chest Pain Negative: Cough Negative: Vomiting Skin: Other - 2 hardened, erythematous regions on abdomen All Other Systems Reviewed And Are Negative: Yes Physical Exam - Summary Physical Exam Summary: VITAL SIGNS: Reviewed. GENERAL: Patient is a well-developed and nourished FEMALE who is lying comfortable in the stretcher. Patient is not in any acute respiratory distress. HEAD AND FACE: No signs of trauma. No ecchymosis, hematomas or skull depressions. No sinus tenderness. EYES: PERRLA, EOMI x 2, No injected conjunctiva, no nystagmus. EARS: Hearing grossly intact. Ear canals and tympanic membranes are within normal limits. MOUTH: Oropharynx within normal limits. NECK: Supple, trachea is midline, no adenopathy, no JVD, no carotid bruit, no c- spine tenderness, neck with full ROM. CHEST: Symmetric, no tenderness at palpation LUNGS: Clear to auscultation bilaterally. No wheezing or crackles. CVS: Regular rate and rhythm, S1 and S2 present, no murmurs or gallops appreciated. ABDOMEN: Soft, non-tender. No signs of distention. No rebound no guarding, and no masses palpated. Bowel sounds are normal. 2 localized areas of redness over the anterior abdominal wall. The one on the right is fluctuant and severely tender. Bedside US shows this area to be consistent with collection. The area on the left is not as tender with questionable collection EXTREMITIES: FROM in all major joints, no edema, no cyanosis or clubbing. NEURO: Alert and oriented x 3. No acute neurological deficits. Speech is normal and follows commands. SKIN: Dry and warm Triage Information Reviewed: Yes Vital Signs On Initial Exam: Initial Vitals Temp Pulse Resp BP Pulse Ox 98.9 F 114 20 180/119 97 12/16/18 20:11 12/16/18 20:11 12/16/18 20:11 12/16/18 20:11 12/16/18 20:11 Vital Signs Reviewed: Yes Procedures - Incision and Drainage Right Abdomen Site: right abdomen Anesthesia: Lidocaine - 2% without epi Instrument(s): Scalpel Packing: Gauze Left Abdomen Site: left abdomen Anesthesia: Lidocaine - 2% without epi Instrument(s): Scalpel Packing: Gauze Diagnostics - Vital Signs Vital Signs Temp Pulse Resp BP Pulse Ox 12/16/18 23:04 98.3 F 103 20 174/99 100 12/16/18 20:11 98.9 F 114 20 180/119 97 - Laboratory Result Diagrams: 12/17/18 01:24 12/17/18 01:24 Lab Statement: Any lab studies that have been ordered have been reviewed, and results considered in the medical decision making process. Course/Dx - Course Course Of Treatment: This patient is a 53 year old F with Hx DM, HCL, HTN presenting to [facility] with a chief complaint of painful, hardened, erythematous regions on her abdomen since 6 days ago. Pt said she was seen at [facility] on for the same symptoms but notes that the areas have become more painful. Physical exam reveals 2 localized areas of redness over the anterior abdominal wall. The one on the right is fluctuant and severely tender. Bedside US shows this area to be consistent with collection. The area on the left is not as tender with questionable collection. I&D was performed on both the right and the left abdominal abscesses using 2% lidocaine without epi. 10 cc of pus was drained from each incision and each was packed with gauze and dressed. Test results with no significant abnormalities. In the ED course the patient was given clindamycin, IV fluids, Zofran, and dilaudid. Patient will be discharged with follow up from PCP and prescription for clindamycin. Pt is advised to remove the packing in 2 days, monitor blood sugar, and use warm compresses. The patient is agreeable with this plan. Dx abscess. - Diagnoses Provider Diagnoses: Abscess Discharge - Sign-Out/Discharge Documenting (check all that apply): Patient Departure - discharge - Discharge Plan Condition: Stable Disposition: HOME Prescriptions: Clindamycin Cap(NF) [Clindamycin Cap 300 mg Cap(NF)] 300 mg PO Q6H #30 cap Ibuprofen TAB* [Motrin TAB* 800 MG] 800 mg PO Q6H PRN #30 tab PRN Reason: Pain Patient Education Materials: Abscess (ED) Referrals: Armen Goodman MD [Primary Care Provider] - Additional Instructions: Follow up with primary care physician in 1-2 days. Remove the packing in 2 days. Use warm compresses. Monitor your blood sugar. Stop taking doxycycline and start taking clindamycin. Return to the emergency department with any new or worsening symptoms. - Attestation Statements Document Initiated by Scribe: Yes Documenting Scribe: Laureen Mendez Provider For Whom Scribe is Documenting (Include Credential): Goyo Allen MD Scribe Attestation: Laureen Car, scribed for Goyo Allen MD on 12/17/18 at 0334. Status of Scribe Document: Ready
[2018-12-17] MEDS ORDERED: HYDROmorphone INJ* 2 MG/ML CARPUJECT SYRINGE IV SLOW PU ONE ×2 (01:16→02:37)
[2018-12-17] MEDS ORDERED: Ondansetron INJ* 2 MG/ML VIAL IV ONE (01:17)
[2018-12-17 01:42] LABS: ABS Basophils 0 10^3/ul (0-0.2); ABS Eosinophils 0.1 10^3/ul (0-0.6); ABS Lymphocytes 1.5 10^3/ul (1.0-4.8); ABS Monocytes 0.4 10^3/ul (0-0.8); ABS Neutrophils 5.6 10^3/ul (1.5-7.7); ABS Nucleated RBC 0 10^3/ul; Eosinophil % 0.8 %; Hematocrit 39 % (35-47); Hemoglobin 13.1 g/dl (12.0-16.0); Mean Corpuscular HGB Conc 33 g/dl (31-36); Mean Corpuscular Hemoglobin 28 pg (27-31); Mean Corpuscular Volume 83 fL (80-97); Mean Platelet Volume 8.9 fL (7.4-10.4); Nucleated Red Blood Cells % 0.1; Platelet Count 228 10^3/ul (150-450); Red Blood Count 4.76 10^6/ul (4.00-5.40); Red Cell Distribution Width 14 % (10.5-15); White Blood Count 7.6 10^3/ul (3.5-10.8)
[2018-12-17] MEDS ORDERED: HYDROmorphone INJ1* 1 MG/ML SYRINGE ONE (01:55)
[2018-12-17 02:02] LABS: Albumin 4.1 g/dL (3.2-5.2); Albumin/Globulin Ratio 1.2 (1-3); BUN/Creatinine Ratio 25.4 (8-20); C Reactive Protein 84.04 mg/L (<8.01); Calcium 9.3 mg/dL (8.6-10.3); EGFR Non-African American 98.1 (>60); Globulin 3.5 g/dL (2-4); Potassium 3.5 mmol/L (3.5-5.0); Total Bilirubin 0.3 mg/dL (0.2-1.0); Total Protein 7.6 g/dL (6.4-8.9)
[2018-12-17] MEDS ORDERED: Lidocaine 2% EPI 1:200000 MPF*10-20 ML VIAL ONE (02:02)
[2018-12-17] MEDS ORDERED: HYDROmorphone INJ1* 1 MG/ML SYRINGE IV SLOW PU ONE (02:30)
[2018-12-17] MEDS ORDERED: Insulin REGULAR(*) 1 UNITS UNIT IV PUSH ONE (02:36)
[2018-12-17 05:41] VITALS: BP 136/78
--- NOTE | 2018-12-21 00:26 | PN ---
Progress Note - Progress Note Date of Service: 12/21/18 Note: patient blood culture was called to the ED 0:20 for anaerobic bottle gram positive cocci resembling staff. mrsa and staph aureus pcr where negative along with aerobic culture and anaerobic culture day 3 so blood culture is likely a contaminant. patient is currently on clindamycin per note.
== END 2018-12-17 04:00 | disposition home or self-care (01) ==
LOC: ED 19:58
DX: L02.211 Cutaneous abscess of abdominal wall (principal); Z88.0 Allergy status to penicillin; Z88.2 Allergy status to sulfonamides; Z88.8 Allergy status to other drugs, medicaments and biological substances; F17.210 Nicotine dependence, cigarettes, uncomplicated
CPT/HCPCS: 10060; 36415; 80053; 85025; 86140; 87040; 87070; 87076; 87077; 87150; 87185; 87186; 87205; 87640; 87641; 96365; 96372; 96375; 96376; 99283; J1170; J2405

== ENCOUNTER 2019-02-14 16:19 | Inpatient (IN) | payer OTHER ==
[2019-02-14] MEDS ORDERED: Morphine INJ* 2 MG/ML 1 ML SYRINGE (TWO MG - NEW SYRINGE VERSION) IV ONE (18:32)
[2019-02-14] MEDS ORDERED: Morphine 4 MG/ML VIAL (1 ml) 4 MG/ML VIAL IV ONE (18:45)
[2019-02-14 18:57] LABS: ABS Basophils 0.1 10^3/ul (0-0.2); ABS Eosinophils 0.1 10^3/ul (0-0.6); ABS Lymphocytes 1.7 10^3/ul (1.0-4.8); ABS Monocytes 0.4 10^3/ul (0-0.8); ABS Neutrophils 3.4 10^3/ul (1.5-7.7); ABS Nucleated RBC 0 10^3/ul; Eosinophil % 1.6 %; Hematocrit 40 % (33-41); Hemoglobin 13.4 g/dL (12.0-16.0); Lymphocyte % 30.8 %; Mean Corpuscular HGB Conc 34 g/dL (31-36); Mean Corpuscular Hemoglobin 28 pg (27-31); Mean Corpuscular Volume 84 fL (80-97); Mean Platelet Volume 9.3 fL (7.4-10.4); Nucleated Red Blood Cells % 0; Platelet Count 203 10^3/uL (150-450); Red Blood Count 4.72 10^6 /uL (3.70-4.87); Red Cell Distribution Width 15 % (10.5-15); White Blood Count 5.6 10^3/uL (3.5-10.8)
[2019-02-14 19:00] LABS: Urine Appearance Clear; Urine Bilirubin Negative (Negative); Urine Blood Negative (Negative); Urine Color Straw; Urine Glucose 3+(>=500 mg/dL) (Negative); Urine Ketones Negative (Negative); Urine Nitrite Negative (Negative); Urine Protein Negative (Negative); Urine Specific Gravity 1.026 (1.010-1.030); Urine Urobilinogen Negative (Negative)
[2019-02-14 19:13] LABS: Albumin/Globulin Ratio 1.4 (1-3); C Reactive Protein 24.75 mg/L (<8.01); Calcium 9.1 mg/dL (8.6-10.3); EGFR African American 114.5 (>60); EGFR Non-African American 94.6 (>60); Globulin 2.9 g/dL (2-4); Potassium 3.9 mmol/L (3.5-5.0); Total Bilirubin 0.3 mg/dL (0.2-1.0); Total Protein 6.9 g/dL (6.4-8.9)
[2019-02-14] MEDS ORDERED: Iodixanol* (CONTRAST) 320 MG/ML 100 ML SDV IV ONE (19:36)
[2019-02-14] MEDS ORDERED: Insulin REGULAR(*) 1 UNITS UNIT SUBCUT ONE (19:40)
--- NOTE | 2019-02-14 20:06 | ED ---
GI/ HPI - HPI Summary HPI Summary: 53-year-old female presents with ruq pain today. She states the pain is getting worse. She states causes shortness of breath. Denies any chest pain. She admits to some nausea and no vomiting. No diarrhea constipation. No urinary symptoms. She's never had this pain before. She's had a gallbladder removed. She denies any fevers. pain is right under right ribs. she is a smoker. no fam hx of blood clots. no recent travel. no cough or fever. she is a diabetic and copd. - History of Current Complaint Chief Complaint: EDAbdPain Time Seen by Provider: 02/14/19 18:25 Stated Complaint: IM HAVING A LOT OF PAIN IN MY UPPER RT SIDE PER PT Pain Intensity: 8 - Additional Pertinent History Primary Care Physician: BELINDA - Allergy/Home Medications Allergies/Adverse Reactions: Allergies Allergy/AdvReac Type Severity Reaction Status Date / Time metoclopramide Allergy Unknown Unknown Verified 12/13/18 11:33 Reaction Details Sulfa (Sulfonamide Allergy Unknown Hives Verified 12/13/18 11:33 Antibiotics) Penicillins AdvReac Unknown Altered Verified 12/13/18 11:33 Mental Status Home Medications: Home Medications Insulin GLARGINE(*) [Lantus(*)] 50 units SUBCUT BID 02/14/19 [History Confirmed 02/14/19] Insulin Lispro [Admelog] 10 units SUBCUT TID 02/14/19 [History Confirmed ] Topiramate TAB(*) [Topamax 25 MG tab] 50 mg PO BID 02/14/19 [History Confirmed 02/14/19] PMH/Surg Hx/FS Hx/Imm Hx Endocrine/Hematology History: Reports: Hx Diabetes Cardiovascular History: Reports: Hx Hypercholesterolemia, Hx Hypertension Respiratory History: Reports: Hx Chronic Obstructive Pulmonary Disease (COPD) Denies: Hx Asthma GI History: Reports: Hx Ulcer History: Denies: Hx Renal Disease Musculoskeletal History: Reports: Hx Arthritis, Hx Back Problems, Other Musculoskeletal History - sciatica Sensory History: Reports: Hx Contacts or Glasses - READING GLASSES Denies: Hx Legally Blind, Hx Deafness, Hx Hearing Aid Opthamlomology History: Reports: Hx Contacts or Glasses - READING GLASSES Denies: Hx Legally Blind Neurological History: Reports: Hx Migraine Psychiatric History: Reports: Hx Anxiety, Hx Depression - Cancer History Cancer Type, Location and Year: cervical - Surgical History Surgery Procedure, Year, and Place: cholecystectomy and right knee surgery Infectious Disease History: No Infectious Disease History: Denies: Traveled Outside the [place] in Last 30 Days - Family History Known Family History: Positive: Hypertension - Social History Alcohol Use: None Substance Use Type: Reports: None Hx Tobacco Use: Yes Smoking Status (MU): Current Every Day Smoker Amount Used/How Often: anywhere from 2 cigarettes to a pack a day Review of Systems Negative: Fever Negative: Chest Pain Positive: Shortness Of Breath Positive: Abdominal Pain. Negative: Vomiting, Diarrhea, Nausea All Other Systems Reviewed And Are Negative: Yes Physical Exam Triage Information Reviewed: Yes Vital Signs On Initial Exam: Initial Vitals Temp Pulse Resp BP Pulse Ox 98.3 F 112 18 142/106 100 02/14/19 16:22 02/14/19 16:22 02/14/19 16:22 02/14/19 16:22 02/14/19 16:22 Vital Signs Reviewed: Yes Appearance: Positive: Well-Appearing Skin: Positive: Warm, Dry Head/Face: Positive: Normal Head/Face Inspection Eyes: Positive: Normal, Conjunctiva Clear ENT: Positive: Pharynx normal Respiratory/Lung Sounds: Positive: Clear to Auscultation, Breath Sounds Present Cardiovascular: Positive: Normal, RRR Abdomen Description: Positive: Other: - tenderness RUQ under ribs Bowel Sounds: Positive: Present Musculoskeletal: Positive: Normal Neurological: Positive: Normal Psychiatric: Positive: Normal Diagnostics - Vital Signs Vital Signs Temp Pulse Resp BP Pulse Ox 02/14/19 19:00 106 19 97 02/14/19 18:59 104 17 160/103 97 02/14/19 18:58 20 02/14/19 18:29 108 17 156/104 99 02/14/19 18:28 14 02/14/19 16:22 98.3 F 112 18 142/106 100 - Laboratory Lab Results: Lab Results 02/14/19 02/14/19 02/14/19 Range/Units 18:45 18:48 18:48 WBC 5.6 (3.5-10.8) 10^3/uL RBC 4.72 (3.70-4.87) 10^6 /uL Hgb 13.4 (12.0-16.0) g/dL Hct 40 (33-41) % MCV 84 (80-97) fL MCH 28 (27-31) pg MCHC 34 (31-36) g/dL RDW 15 (10.5-15) % Plt Count 203 (150-450) 10^3/uL MPV 9.3 (7.4-10.4) fL Neut % (Auto) 60.0 % Lymph % (Auto) 30.8 % Clinch % (Auto) 6.6 % Eos % (Auto) 1.6 % Baso % (Auto) 1.0 % Absolute Neuts (auto) 3.4 (1.5-7.7) 10^3/ul Absolute Lymphs (auto) 1.7 (1.0-4.8) 10^3/ul Absolute Monos (auto) 0.4 (0-0.8) 10^3/ul Absolute Eos (auto) 0.1 (0-0.6) 10^3/ul Absolute Basos (auto) 0.1 (0-0.2) 10^3/ul Absolute Nucleated RBC 0 10^3/ul Nucleated RBC % 0 D-Dimer, Quantitative (Less Than 230) ng/mL Sodium 136 (135-145) mmol/L Potassium 3.9 (3.5-5.0) mmol/L Chloride 103 (101-111) mmol/L Carbon Dioxide 25 (22-32) mmol/L Anion Gap 8 (2-11) mmol/L BUN 13 (6-24) mg/dL Creatinine 0.65 (0.51-0.95) mg/dL Est GFR ( Amer) 114.5 (>60) Est GFR (Non-Af Amer) 94.6 (>60) BUN/Creatinine Ratio 20.0 (8-20) Glucose 389 H (70-100) mg/dL Lactic Acid (0.5-2.0) mmol/L Calcium 9.1 (8.6-10.3) mg/dL Total Bilirubin 0.30 (0.2-1.0) mg/dL AST 128 H (13-39) U/L ALT 225 H (7-52) U/L Alkaline Phosphatase 152 H (34-104) U/L Troponin I 0.00 (<0.04) ng/mL C-Reactive Protein 24.75 H (<8.01) mg/L Total Protein 6.9 (6.4-8.9) g/dL Albumin 4.0 (3.2-5.2) g/dL Globulin 2.9 (2-4) g/dL Albumin/Globulin Ratio 1.4 (1-3) Amylase 27 L (29-103) U/L Lipase 30 (11.0-82.0) U/L Urine Color Straw Urine Appearance Clear Urine pH 8.0 (5-9) Ur Specific [place] 1.026 (1.010-1.030) Urine Protein Negative (Negative) Urine Ketones Negative (Negative) Urine Blood Negative (Negative) Urine Nitrate Negative (Negative) Urine Bilirubin Negative (Negative) Urine Urobilinogen Negative (Negative) Ur Leukocyte Esterase Negative (Negative) Urine Glucose 3+(>=500 mg/dl) A (Negative) 02/14/19 02/14/19 Range/Units 18:48 18:48 WBC (3.5-10.8) 10^3/uL RBC (3.70-4.87) 10^6 /uL Hgb (12.0-16.0) g/dL Hct (33-41) % MCV (80-97) fL MCH (27-31) pg MCHC (31-36) g/dL RDW (10.5-15) % Plt Count (150-450) 10^3/uL MPV (7.4-10.4) fL Neut % (Auto) % Lymph % (Auto) % Clinch % (Auto) % Eos % (Auto) % Baso % (Auto) % Absolute Neuts (auto) (1.5-7.7) 10^3/ul Absolute Lymphs (auto) (1.0-4.8) 10^3/ul Absolute Monos (auto) (0-0.8) 10^3/ul Absolute Eos (auto) (0-0.6) 10^3/ul Absolute Basos (auto) (0-0.2) 10^3/ul Absolute Nucleated RBC 10^3/ul Nucleated RBC % D-Dimer, Quantitative 412 H (Less Than 230) ng/mL Sodium (135-145) mmol/L Potassium (3.5-5.0) mmol/L Chloride (101-111) mmol/L Carbon Dioxide (22-32) mmol/L Anion Gap (2-11) mmol/L BUN (6-24) mg/dL Creatinine (0.51-0.95) mg/dL Est GFR ( Amer) (>60) Est GFR (Non-Af Amer) (>60) BUN/Creatinine Ratio (8-20) Glucose (70-100) mg/dL Lactic Acid 0.7 (0.5-2.0) mmol/L Calcium (8.6-10.3) mg/dL Total Bilirubin (0.2-1.0) mg/dL AST (13-39) U/L ALT (7-52) U/L Alkaline Phosphatase (34-104) U/L Troponin I (<0.04) ng/mL C-Reactive Protein (<8.01) mg/L Total Protein (6.4-8.9) g/dL Albumin (3.2-5.2) g/dL Globulin (2-4) g/dL Albumin/Globulin Ratio (1-3) Amylase (29-103) U/L Lipase (11.0-82.0) U/L Urine Color Urine Appearance Urine pH (5-9) Ur Specific [place] (1.010-1.030) Urine Protein (Negative) Urine Ketones (Negative) Urine Blood (Negative) Urine Nitrate (Negative) Urine Bilirubin (Negative) Urine Urobilinogen (Negative) Ur Leukocyte Esterase (Negative) Urine Glucose (Negative) Result Diagrams: 02/14/19 18:48 02/14/19 18:48 Lab Statement: Any lab studies that have been ordered have been reviewed, and results considered in the medical decision making process. - CT chest, abd CT Interpretation Completed By: Radiologist Summary of CT Findings: IMPRESSION: There are multiple segmental and subsegmental pulmonary emboli noted in the. right lower lobar artery. There is a small groundglass opacity noted in the right upper lobe. Findings. may represent an infectious/inflammatory process - EKG No standard instances Cardiac Rate: NL EKG Rhythm: Sinus Rhythm Summary of EKG Findings: sinus rhythm GIGU Course/Dx - Course Course Of Treatment: 53-year-old female presents with ruq pain today. She states the pain is getting worse. She states causes shortness of breath. Denies any chest pain. She admits to some nausea and no vomiting. No diarrhea constipation. No urinary symptoms. She's never had this pain before. She's had a gallbladder removed. She denies any fevers. pain is right under right ribs. she is a smoker. no fam hx of blood clots. no recent travel. no cough or fever. she is a diabetic and copd. on exam tenderness right under right rib. lungs CTA. o2 stat normal. wbc normal. d-dimer elevated. crp normal. CT chest shows PE. CT abd normal. gave dose of heparin. patient is in significant pain so will admit. dr bhardwaj agrees to admit patient. - Diagnoses Differential Diagnoses - Female: Gall Bladder Disease, Pancreatitis, Other - PE Provider Diagnoses: Abdominal pain, Pulmonary embolism - Critical Care Time Critical Care Time: 30-74 min - 35 Discharge - Sign-Out/Discharge Documenting (check all that apply): Patient Departure - Discharge Plan Condition: Stable Disposition: ADMITTED TO [facility] - Billing Disposition and Condition Condition: STABLE Disposition: Admitted to [facility]
[2019-02-14] MEDS ORDERED: HYDROmorphone INJ1* 1 MG/ML SYRINGE IV SLOW PU ONE (20:54)
[2019-02-14] MEDS ORDERED: Enoxaparin(*) 60 MG/0.6 ML SYR SUBCUT ONE (20:57)
[2019-02-15] MEDS: HYDROmorphone INJ1* 1 MG/ML SYRINGE IV PRN ×7 (00:05→21:05)
[2019-02-15] MEDS: Atorvastatin* 20 MG TAB PO SCH ×2 (00:07→21:05)
[2019-02-15] MEDS: Famotidine TAB* 20 MG PO SCH ×3 (00:08→21:04)
[2019-02-15] MEDS: Topiramate TAB(*) 25 MG PO SCH ×3 (00:08→21:06)
[2019-02-15] MEDS: QUEtiapine TAB* 25 MG PO SCH ×2 (00:08→21:06)
[2019-02-15] MEDS: Gabapentin CAP(*) 300 MG PO SCH ×4 (00:08→21:05)
[2019-02-15] MEDS: Sucralfate TAB* 1 GM PO SCH ×4 (00:08→21:09)
[2019-02-15] MEDS: Bethanechol TAB* 25 MG PO SCH ×5 (00:09→21:05)
[2019-02-15] MEDS: Insulin GLARGINE(*) 1 UNITS UNIT SUBCUT SCH ×3 (00:12→22:43)
--- NOTE | 2019-02-15 00:55 | HP ---
HISTORY AND PHYSICAL: DATE OF ADMISSION: 02/14/19 ADMITTING PROVIDER: Armen Goodman MD PRIMARY CARE PROVIDER: [facility] (Dr. Armen Goodman and Dr. Dian Viera). CHIEF COMPLAINT: Right upper quadrant abdominal pain worse with deep breathing. HISTORY OF PRESENT ILLNESS: Evie Simpson is a 53-year-old female with past medical history of insulin dependent diabetes mellitus type 2; hypertension; hyperlipidemia; GERD; diabetic gastroparesis; history of opioid abuse(currently on Suboxone through Dr. Rodriguez); recent superficial abdominal abscesses related to her insulin injections, and depression. Two nights prior to admission on , she started to develop pain in her right upper quadrant that was worse with deep breathing, was 8/10 intensity not sufficiently controlled on her Suboxone. She denied any fevers, chills, chest pain, or cough. She had recently gotten over a viral illness, for which she went to [facility] on 02/03/19. She presented to the [facility] Emergency Room, had an elevated D- dimer to [address] chest, abdomen, and pelvis, which demonstrated multiple segmental and subsegmental pulmonary emboli noted in the right lower lobar artery and also a small ground-glass opacity noted in the right upper lobe , may represent infectious versus inflammatory process. She got 4mg of IV morphine in the emergency room without pain relief and then 1mg IV Dilaudid at 2100, which blunted the pain. She was referred to the hospitalist service for admission for her intractable rUQ abdominal pain and acute pulmonary embolism. She notably has been tachycardic in the low 100s-110 on admission, but satting well on room air and normotensive. She was started on Lovenox 1 mg/kg b.i.d. in the emergency room. Other workup was significant for CRP of 24.7 and a glucose of 389, negative lipase. PAST MEDICAL HISTORY: 1. Insulin dependent diabetes mellitus type 2. (Last A1C 10.8% 12/12/17) 2. Hypertension. 3. Hyperlipidemia. 4. GERD. 5. Depression. 6. Opioid abuse. 7. Severe gastroparesis. PAST SURGICAL HISTORY: 1. Cholecystectomy. 2. Hysterectomy. HOME MEDICATIONS: Include: 1. Topamax 50 mg p.o. b.i.d. 2. Lispro 10 mg subcutaneous t.i.d. 3. Fioricet 1 tab q.6 hours p.r.n. (has not used recently). 4. Suboxone 8 mg-2 mg, 3 films daily. 5. Bethanechol 25 mg p.o. 4 times a day. 6. Lipitor 20 mg p.o. at bedtime. 7. Tylenol 650 mg p.o. q.6 hours p.r.n. 8. Neurontin 600 mg p.o. t.i.d. 9. Prozac 40 mg p.o. daily. 10. Flexeril 10 mg p.o. t.i.d. p.r.n., (has not been using recently) 11. Carafate 1 g p.o. t.i.d. 12. Zantac 150 mg p.o. b.i.d. 13. Seroquel 50 mg p.o. at bedtime. 14. Phenergan 25 mg p.o. q.8 hours p.r.n., (has not used recently) 15. Lidocaine 5% patch transdermal daily. 16. Lantus 50 units subcutaneous b.i.d. 17. Nicotine patch 21 mg/daily ALLERGIES: Include REGLAN, SULFA, PENICILLINS. FAMILY HISTORY: Her family history is significant for father who of pancreatic and stomach cancer, and who was an alcoholic. Mother is alive with hypertension. SOCIAL HISTORY: The patient is a current smoker of 2 to 3 cigarettes a day ( and wears 21 mg nicotine patch). Denies current alcohol use, no drug use currently, though does have history in the past. She is a DNR/DNI. She is accompanied by her , Roger. REVIEW OF SYSTEMS: Complete 14-point review of systems is negative except as per HPI. She denies any long car or air flights. No recent immobilization or surgeries. No history of blood clots. She does attest to some slight increase in lower extremity edema over the last few days. PHYSICAL EXAMINATION GENERAL APPEARANCE: No acute distress. VITAL SIGNS: Temperature 98.3, pulse rate 110, respiratory rate 18, satting in 90s on room air, blood pressure 142/106. HEENT: Normocephalic, atraumatic. Pupils are equal, round, and reactive to light. Extraocular motions are intact. No scleral icterus. Moist mucous membranes. LUNGS: Clear to auscultation, though limited exam due to pleuritic pain. No wheezing, rhonchi or rales. CARDIAC: Regular rate and rhythm, no murmurs, rubs or gallops. ABDOMEN: Soft, nontender, nondistended. No rebound or guarding. EXTREMITIES: Warm, well perfused. Trace pitting edema, bilateral lower extremities. NEURO: Cranial nerves II through XII intact. Ice Scraper strength intact. Hip flexion 5/5 bilaterally. SKIN: No lesions, no rashes. DIAGNOSTIC STUDIES/LAB DATA: Labs: White count 5.6, hemoglobin 13.4, hematocrit of 40, platelets 203,000. D-dimer of 412. Sodium 136, potassium 3.9 , chloride 103, carbon dioxide 25. BUN 13, creatinine 0.65, glucose 389. Lactic acid 0.7, calcium 9.1. Total bili is 0.3, AST 128, ALT 225, alk phos 152. Troponin 0.00. CRP 24.8, albumin 4.0, amylase 27, lipase 30. Urinalysis negative except for 3+ glucose. Imaging: CT chest, abdomen and pelvis with IV contrast showed multiple segmental and subsegmental pulmonary emboli noted in the right lower lobe artery. There is a small ground-glass opacity noted in the right upper lobe. Findings may represent infectious or inflammatory process. She had an EKG, showed a normal sinus rhythm, rate initially 98, T-wave inversions in III and T-wave inversions in V1, these were all chronic; poor R- wave progression, normal axis, normal intervals. ASSESSMENT AND PLAN: Evie Simpson is a 53-year-old female with past medical history of insulin dependent diabetes mellitus, poorly controlled, with last A1c 10.8 down from 13.0; hypertension; hyperlipidemia; gastroesophageal reflux disease; diabetic gastroparesis; hx of opioid abuse, on Suboxone. She is presenting with right upper quadrant pain, worse with deep breathing and evidence of acute pulmonary embolism in the right lower lobe, seemingly unprovoked. 1) Acute Pulmonary Embolism without current evidence of Cor Pulmonale. She is status post 1mg/kg Lovenox in the emergency room. I will start Eliquis at 10 mg p.o. b.i.d. for the next 7 days and 5 mg b.i.d. thereafter. I am getting duplex Dopplers of the lower extremities to rule out deep vein thrombosis given her acute pulmonary embolism and her lower extremity swelling. Given her tachycardia (though may be pain related as well), I am adding on a BNP to further assess biomarkers of right heart strain. She has no echocardiogram in our system (and denies previous through [place]) and this will likewise be obtained. I will obtain prothrombin gene mutation and factor V Leiden deficiency test to AM labs as these are not influenced by acute thrombosis or treatment with lovenox. Will add aPTT to AM labs and could consider adding antiphospholid antibody workup if this is elevated. Other hypercoagulability tests deferred given acute thrombus or acute treatment. 2) acute intractable RUQ pain likely related to acute PE and in setting of chronic suboxone use. Continue her Suboxone SL tabs TID and start off with Dilaudid 1 mg q.3 hours p.r.n. IV, along with Tylenol prn, gabapentin 600 mg t.i.d., and her lidocaine patch 5% topical daily. 3) insulin dependent diabetes mellitus with hyperglycemia to 389: I am going to start her on Lantus 40 units b.i.d., slight reduction from her home dose of 50U bid. Continue her 10 mg of lispro with meals q.a.c. and h.s. point of care testing. 4) diabetic gastroparesis & GERD & hx of esophagitis, continue her bethanechol, Carafate, and Zantac. She unfortunately missed her planned repeat EGD at [facility] in November as she was hospitalized 12/20-12/26 [facility] with superficial abdominal abscesses (citrobacter and bacteroides s/p vanc/zosyn then narrowed to ciprofloxacin 10 days as outpatient) 5) headache disorder: continue her Topamax 50 mg p.o. b.i.d. 6) depression: continue her Seroquel 50 q.h.s. and Prozac 40 mg q.h.s. 7) hyperlipidemia: continue lipitor 20mg For her diet, she is carbohydrate consistent, heart healthy.She is a DNR/DNI. She is admitted to observation status. Her medical surrogate is Roger, her . [id number]/[facility] #: [id number] [facility]
[2019-02-15] MEDS: Apixaban* 5 MG TAB PO SCH ×2 (08:39→21:05)
[2019-02-15] MEDS: FLUoxetine CAP* 20 MG PO SCH (08:39)
[2019-02-15] MEDS: Buprenorp/Nalox 8-2 MG FILM 1 EACH SL FILM SCH ×3 (08:40→21:05)
[2019-02-15] MEDS: Insulin LISPRO* 1 UNITS UNIT SUBCUT SCH ×3 (08:41→17:25)
[2019-02-15] MEDS: Nicotine PATCH 21 MG/24 HR* PATCH TRANSDERM SCH (08:41)
[2019-02-15] MEDS: Lidocaine PATCH 5%* 1 PATCH TRANSDERM SCH (08:42)
--- NOTE | 2019-02-15 13:15 | PN ---
Subjective Date of Service: 02/15/19 Interval History: Patient is still having severe pain in flank, worse with breathing and unchanged from yesterday. Patient had a cholecystectomy in the 90s. Patient denies palpitations, dizziness. Patient has baseline nausea related to gastroparesis. Patient denies vomiting. Patient denies F/C, Abdominal pain, dysuria, diarrhea, or other pain. Patient states she has been previously told she has fatty liver disease. Family History: Unchanged from Admission Social History: Unchanged from Admission Past Medical History: Unchanged from Admission Objective Active Medications: Acetaminophen (Tylenol Tab*) 650 mg PO Q6H PRN PRN Reason: FEVER Apixaban (Eliquis*) 10 mg PO BID [facility] Stop: 02/22/19 08:59 Last Admin: 02/15/19 08:39 Dose: 10 mg Atorvastatin Calcium (Lipitor*) 20 mg PO BEDTIME [facility] Last Admin: 02/15/19 00:07 Dose: 20 mg Bethanechol Chloride (Urecholine Tab*) 25 mg PO QID [facility] Last Admin: 02/15/19 08:40 Dose: 25 mg Buprenorphine/Naloxone (Suboxone 8 Mg-2 Mg Sl Film) 1 each SL FILM TID [facility] Last Admin: 02/15/19 08:40 Dose: 1 each Famotidine (Pepcid Tab*) 20 mg PO BID [facility]; Protocol Last Admin: 02/15/19 08:39 Dose: 20 mg Fluoxetine HCl (Prozac Cap*) 40 mg PO DAILY [facility] Last Admin: 02/15/19 08:39 Dose: 40 mg Gabapentin (Neurontin Cap(*)) 600 mg PO TID [facility] Last Admin: 02/15/19 08:40 Dose: 600 mg Hydromorphone HCl (Dilaudid Inj1s*) 1 mg IV Q3H PRN PRN Reason: PAIN Last Admin: 02/15/19 10:47 Dose: 1 mg Insulin Glargine (Lantus(*)) 40 units SUBCUT Q12H [facility] Last Admin: 02/15/19 11:59 Dose: 40 units Insulin Human Lispro (Humalog*) 10 units SUBCUT AC [facility] Last Admin: 02/15/19 11:59 Dose: 10 units Lidocaine (Lidoderm 5% Patch*) 1 patch TRANSDERM DAILY [facility] Last Admin: 02/15/19 08:42 Dose: Not Given Nicotine (Nicotine Patch 21 Mg/24 Hr*) 1 patch TRANSDERM DAILY@0800 [facility] Last Admin: 02/15/19 08:41 Dose: 1 patch Pharmacy Profile Note (Nicotine Patch Removal Note*) 1 note FOLLOW UP 2099 [facility] Pharmacy Profile Note (Lidocaine Patch Remove*) 1 note PATCH OFF 2099 [facility] Quetiapine Fumarate (Seroquel Tab*) 50 mg PO BEDTIME [facility] Last Admin: 02/15/19 00:08 Dose: 50 mg Sucralfate (Carafate*) 1 gm PO TID [facility] Last Admin: 02/15/19 08:40 Dose: 1 gm Topiramate (Topamax(*)) 50 mg PO BID [facility] Last Admin: 02/15/19 08:40 Dose: 50 mg Vital Signs - 8 hr 02/15/19 02/15/19 02/15/19 05:48 07:15 07:36 Temperature 97.7 F Pulse Rate 72 Respiratory 16 18 16 Rate Blood Pressure 126/74 (mmHg) O2 Sat by Pulse 98 Oximetry 02/15/19 02/15/19 02/15/19 07:42 07:46 08:40 Temperature 97.7 F Pulse Rate 71 Respiratory 18 16 16 Rate Blood Pressure 126/74 (mmHg) O2 Sat by Pulse 98 Oximetry 02/15/19 02/15/19 02/15/19 10:47 11:40 12:19 Temperature 98.1 F Pulse Rate 81 Respiratory 12 18 18 Rate Blood Pressure 111/68 (mmHg) O2 Sat by Pulse 97 Oximetry Oxygen Devices in Use Now: None Appearance: Patient is a 53yo female who appears stated age and is sitting in the bed in [facility]. Eyes: No Scleral Icterus, PERRLA Ears/Nose/Mouth/Throat: NL Teeth, Lips, Gums, Clear Oropharnyx, Mucous Membranes Moist Neck: NL Appearance and Movements; NL JVP, Trachea Midline Respiratory: Symmetrical Chest Expansion and Respiratory Effort, Clear to Auscultation, - Cardiovascular: NL Sounds; No Murmurs; No JVD, RRR, No Edema, - - Tenderness to palpation over right flank. Severe pleuritic pain. Abdominal: NL Sounds; No Tenderness; No Distention, No Hepatosplenomegaly, - - Negative Doherty's sign. Lymphatic: No Cervical Adenopathy Extremities: No Edema, No Clubbing, Cyanosis Skin: No Rash or Ulcers, No Nodules or Sclerosis Neurological: Alert and Oriented x 3, NL Sensation, NL Muscle Strength and Tone , - - CN II-XII intact. Result Diagrams: 02/15/19 13:54 02/15/19 13:54 Additional Lab and Data: Lab Results Assess/Plan/Problems-Billing Assessment: Patient is a 53yo female with a PMH for Gastroparesis and chronic pain who is admitted with Flank pain found to be likely related to PE who is being anticoagulated. - Patient Problems (1) Pulmonary embolism Current Visit: Yes Status: Acute Code(s): I26.99 - OTHER PULMONARY EMBOLISM WITHOUT ACUTE COR PULMONALE SNOMED Code(s): 57568102 Comment: - Acute unprovoked PE - Started on Eliquis at initial treatment dose. - Factor V leiden and Prothrombin gene mutation sent, may need further workup - Hemodynamically stable, Echo pending to assess level of RV dysfunction. - Severe pain, requiring IV dilaudid to control. (2) Transaminitis Current Visit: Yes Status: Acute Code(s): R74.0 - NONSPEC ELEV OF LEVELS OF TRANSAMNS & LACTIC ACID DEHYDRGNSE SNOMED Code(s): 982100451 Comment: - Unclear cause. - Patient has history of cholecystectomy, non-cholestatic pattern - Repeat today, may need further imaging of liver and further lab testing - No endorsed risk factors for viral hepatitis - Patient states she was previously told she had a fatty liver, possibly BRENNAN. - Possibly Liver congestion from PE, less likely due to low degree of RV dysfunction on TTE. (3) Gastroparesis Current Visit: No Status: Acute Code(s): K31.84 - GASTROPARESIS SNOMED Code(s): 746789526 Comment: - With chronic pain and nausea - Continue pain control and antiemetics. (4) DVT prophylaxis Current Visit: No Status: Acute Code(s): RFY9948 - SNOMED Code(s): 435683503 Comment: - Eliquis (5) Diabetes mellitus Current Visit: No Status: Acute Code(s): E11.9 - TYPE 2 DIABETES MELLITUS WITHOUT COMPLICATIONS SNOMED Code(s): 26795330 Comment: - Long acting and scheduled mealtime insulin. - Moderate control, was elevated on admission. (6) Full code status Current Visit: No Status: Acute Code(s): Z78.9 - OTHER SPECIFIED HEALTH STATUS SNOMED Code(s): 585482879 Status and Disposition: Observation, discharge when able to control pain without IV pain meds and after PE evaluation is complete.
[2019-02-15] MEDS ORDERED: Ondansetron INJ* 2 MG/ML VIAL IV PRN (13:20)
[2019-02-15 14:02] LABS: ABS Basophils 0 10^3/ul (0-0.2); ABS Eosinophils 0.1 10^3/ul (0-0.6); ABS Monocytes 0.3 10^3/ul (0-0.8); ABS Neutrophils 2.1 10^3/ul (1.5-7.7); ABS Nucleated RBC 0 10^3/ul; Eosinophil % 3.2 %; Hematocrit 37 % (33-41); Hemoglobin 12.2 g/dL (12.0-16.0); Lymphocyte % 29.4 %; Mean Corpuscular HGB Conc 33 g/dL (31-36); Mean Corpuscular Hemoglobin 28 pg (27-31); Mean Corpuscular Volume 84 fL (80-97); Nucleated Red Blood Cells % 0; Platelet Count 177 10^3/uL (150-450); Red Blood Count 4.37 10^6 /uL (3.70-4.87); Red Cell Distribution Width 14 % (10.5-15); White Blood Count 3.5 10^3/uL (3.5-10.8)
--- NOTE | 2019-02-15 14:12 | ECHO ---
Patient: XIANG BOSTON [facility] Rec#: [id number] : 1965 Date: 02/15/2019 Age: 53y Height: 154.94 cm / 61.0 in Weight: 63.5 kg / 140.0 lbs Sex: F BSA: 1.62 Room#: [facility] Admit Date#: 02/14/2019 Type: Inpatient Referring: Armen Goodman Reading: Govind Novak MD Air Surveillance Operator: Sirena Clements [facility] Transthoracic Echocardiogram Indication: Pulmonary Embolism BP: 145/73 HR: 81 Rhythm: NSR Findings History: DM,HTN,HLD,GERD,opiod abuse,smoker,current CTA chest showed PE. Technical Comments: The study quality is good. Completed at 1150. Left Ventricle: The left ventricular chamber size is decreased. Mild concentric left ventricular hypertrophy is observed. There is a prominent septal knuckle. Global left ventricular wall motion and contractility are within normal limits. The estimated ejection fraction is 60-65%. Abnormal left ventricular diastolic function is observed. Abnormal left ventricular diastolic filling is observed, consistent with impaired relaxation. Left Atrium: The left atrial chamber size is normal. Right Ventricle: The right ventricular cavity size is normal. The right ventricular global systolic function is mildly reduced. Right Atrium: The right atrial cavity size is normal. Aortic Valve: The aortic valve is trileaflet. There is no evidence of aortic regurgitation. There is no evidence of aortic stenosis. Mitral Valve: The mitral valve leaflets are mildly thickened. There is mild mitral regurgitation. There is no evidence of mitral stenosis. Tricuspid Valve: The tricuspid valve leaflets are normal. There is trace tricuspid regurgitation. Unable to estimate the right ventricular systolic pressure. There is no tricuspid stenosis. Pulmonic Valve: The pulmonic valve appears normal. There is no evidence of pulmonic regurgitation. There is no pulmonic stenosis. Pericardium: A pericardial fat pad is visualized. Aorta: There is no dilatation of the ascending aorta. There is no dilatation of the aortic arch. There is no dilation of the aortic root. Pulmonary Artery: The main pulmonary artery appears normal. Venous: The inferior vena cava appears normal in size. There is a greater than 50% respiratory change in the inferior vena cava dimension. Summary: There was not any prior study for comparison. Conclusions Mild concentric left ventricular hypertrophy is observed. The estimated ejection fraction is 60-65%. Abnormal left ventricular diastolic filling is observed, consistent with impaired relaxation. There is mild mitral regurgitation. There is trace tricuspid regurgitation. Measurements Name Value Normal Range RVIDd (AP) 2D 3.5 cm (0.9 - 2.6) RVDdMajor (2D) 3.2 cm (2.2 - 4.4) RAd ISD 4CH 3.8 cm (3.4 - 4.9) RA (A4C)W 3.3 cm (2.9 - 4.6) IVSd (2D) 1.3 cm (0.6 - 1) LVPWd (2D) 1.1 cm (0.6 - 1) LVIDd (2D) 3 cm (3.6 - 5.4) LVIDs (2D) 2 cm - LV FS (2D) 34 % (25 - 45) Aortic Annulus 2 cm (1.4 - 2.6) Ao root diameter (2D) 3.4 cm (2.1 - 3.5) Ascending Ao 3.2 cm (2.1 - 3.4) Aortic arch 2.7 cm (1.8 - 3.4) Descending Ao 0.5 cm - LA dimension (AP) 2D 3.7 cm (2.3 - 3.8) LAd ISD 4CH 4.3 cm (2.9 - 5.3) LA ISD 4CH W 2.9 cm (2.5 - 4.5) Name Value Normal Range LA ESV SP 4CH (A/L) 36 ml - LA ESV SP 2CH (A/L) 30 ml - LA ESV BP (A/L) 33 ml - LA ESV BP (A/L) index 20.57 ml/m2 - LA ESV SP 4CH (MOD) 34 ml - LA ESV SP 2CH (MOD) 29 ml - Name Value Normal Range MV E-wave Vmax 0.6 m/sec - MV deceleration time 202 msec - MV A-wave Vmax 0.5 m/sec - MV E:A ratio 1.25 ratio - LV septal e' Vmax 0.06 m/sec - LV lateral e' Vmax 0.07 m/sec - LV E:e' septal ratio 10 ratio - LV E:e' lateral ratio 8.57 ratio - Name Value Normal Range AV Vmax 1.2 m/sec - AV VTI 23.2 cm - AV peak gradient 5.43 mmHg - AV mean gradient 2.99 mmHg - Name Value Normal Range MR Vmax 3.5 m/sec - MR VTI 110 cm - Name Value Normal Range IVC diameter 1.6 cm - Name Value Normal Range PV Vmax 0.6 m/sec - PV peak gradient 1.29 mmHg -
[2019-02-15 14:22] LABS: Albumin 3.4 g/dL (3.2-5.2); Albumin/Globulin Ratio 1.4 (1-3); BUN/Creatinine Ratio 17.2 (8-20); Calcium 9.3 mg/dL (8.6-10.3); EGFR African American 130.6 (>60); EGFR Non-African American 107.9 (>60); Globulin 2.5 g/dL (2-4); Potassium 3.5 mmol/L (3.5-5.0); Total Bilirubin 0.3 mg/dL (0.2-1.0); Total Protein 5.9 g/dL (6.4-8.9)
[2019-02-15] MEDS: Acetaminophen TAB* 325 MG PO PRN (19:45)
[2019-02-15] MEDS ORDERED: Nicotine Patch Removal NOTE FOLLOW UP SCH (21:00)
[2019-02-15] MEDS ORDERED: Lidocaine Patch REMOVE* 1 NOTE MISC PATCH OFF SCH (21:00)
[2019-02-16] MEDS: HYDROmorphone INJ1* 1 MG/ML SYRINGE IV PRN ×2 (02:47→06:08)
[2019-02-16 06:32] LABS: ALT 180 U/L (7-52); AST 133 U/L (13-39); Albumin 3.4 g/dL (3.2-5.2); Albumin/Globulin Ratio 1.3 (1-3); Alkaline Phosphatase 133 U/L (34-104); Globulin 2.6 g/dL (2-4); Magnesium 1.8 mg/dL (1.9-2.7)
[2019-02-16] MEDS ORDERED: oxyCODONE TAB* 5 MG TAB PO PRN (08:22)
[2019-02-16] MEDS: oxyCODONE TAB* 5 MG TAB PO PRN ×2 (09:16→13:37)
[2019-02-16] MEDS: Buprenorp/Nalox 8-2 MG FILM 1 EACH SL FILM SCH ×2 (09:17→13:37)
[2019-02-16] MEDS: Apixaban* 5 MG TAB PO SCH (09:17)
[2019-02-16] MEDS: Famotidine TAB* 20 MG PO SCH (09:17)
[2019-02-16] MEDS: FLUoxetine CAP* 20 MG PO SCH (09:17)
[2019-02-16] MEDS: Bethanechol TAB* 25 MG PO SCH ×2 (09:17→13:36)
[2019-02-16] MEDS: Gabapentin CAP(*) 300 MG PO SCH ×2 (09:18→13:36)
[2019-02-16] MEDS: Nicotine PATCH 21 MG/24 HR* PATCH TRANSDERM SCH (09:18)
[2019-02-16] MEDS: Sucralfate TAB* 1 GM PO SCH ×2 (09:18→13:36)
[2019-02-16] MEDS: Topiramate TAB(*) 25 MG PO SCH (09:18)
[2019-02-16] MEDS: Insulin LISPRO* 1 UNITS UNIT SUBCUT SCH ×2 (09:20→12:16)
[2019-02-16] MEDS: Lidocaine PATCH 5%* 1 PATCH TRANSDERM SCH (09:21)
[2019-02-16 11:05] LABS: Hepatitis C Antibody Nonreactive (Nonreactive)
[2019-02-16 12:02] LABS: Hepatitis B Surface Antigen Nonreactive (Nonreactive)
[2019-02-16] MEDS: Acetaminophen TAB* 325 MG PO PRN (12:13)
[2019-02-16] MEDS: Insulin GLARGINE(*) 1 UNITS UNIT SUBCUT SCH (12:17)
[2019-02-16 12:29] VITALS: BP 123/75
--- NOTE | 2019-02-16 22:18 | DS ---
CC: Dr. Armen Goodman; Dr. Surinder Edgar * DISCHARGE SUMMARY: DATE OF ADMISSION: 02/14/19 DATE OF DISCHARGE: 02/16/19 PRIMARY CARE PROVIDER: Dr. Armen Goodman. MY ATTENDING WHILE IN THE HOSPITAL: Dr. Surinder Edgar.* (DICTATED BY POLO DENNIS) PRIMARY DISCHARGE DIAGNOSES: Acute pulmonary embolism, transaminitis. SECONDARY DISCHARGE DIAGNOSES: Diabetes mellitus, poorly controlled. Hypertension, hyperlipidemia, gastroesophageal reflux disease, depression, history of opiate abuse, gastroparesis. STUDIES DONE WHILE IN THE HOSPITAL: EKG from 02/14/19, read as normal sinus rhythm, rate of 98, QTc of 450, normal axis, and possible left atrial enlargement. No other hypertrophy. T-wave inversion in lead III and flattening in aVF. No other significant abnormalities. Consistent with previous exam. Chest, abdomen, and pelvis CTA from 02/14/19, read as multiple segmental and subsegmental pulmonary emboli noted in the right lower lobar arteries. A small ground-glass opacity in the right upper lobe. Findings consistent with infectious/inflammatory process. No acute intraabdominal pathology. Of note, liver is unremarkable and hepatic veins and portal veins are free of clot. Venous Doppler study from , read as no bilateral deep vein thrombosis. Transthoracic echocardiogram read as normal concentric left ventricular hypertrophy, estimated ejection fraction 60% to 65%, abnormal left ventricular diastolic filling consistent with impaired relaxation, mild mitral regurgitation , trace tricuspid regurgitation. Right ventricular global systolic function is mildly reduced. MEDICATIONS AT DISCHARGE: 1. Fioricet 1 tab p.o. q.6 hours as needed. 2. Lipitor 20 mg p.o. at bedtime. 3. Gabapentin 600 mg p.o. t.i.d. 4. Sucralfate 1 g p.o. t.i.d. 5. Promethazine 25 mg p.o. q.8 hours as needed. 6. Lidocaine 5% patch transdermal daily. 7. Cyclobenzaprine 10 mg p.o. t.i.d. as needed. 8. Bethanechol 25 mg p.o. 4 times a day. 9. Zantac 150 mg p.o. b.i.d. 10. Seroquel 50 mg p.o. at bedtime. 11. Fluoxetine 40 mg p.o. daily. 12. Suboxone 8 mg-2 mg, 3 films, 1 film p.o. t.i.d. 13. Tylenol 650 mg p.o. q.6 hours as needed. 14. Ibuprofen 800 mg p.o. q.6 hours as needed. 15. Insulin lispro 10 units subcutaneous t.i.d. 16. Topamax 50 mg p.o. b.i.d. 17. Insulin glargine 50 units subcutaneous b.i.d. 18. Nicotine patch 1 patch transdermal daily 21 mg for 24 hours. 19. Eliquis 10 mg p.o. b.i.d. for 5 days and decreasing to 5 mg p.o. b.i.d. 20. Percocet 5/325 one to two tabs p.o. q.4 hours as needed for acute pain. New medications at discharge: 1. Eliquis. 2. Percocet. HOSPITAL COURSE: This is a brief summary of the patient's presentation. For more details, please see the history and physical from Dr. Armen Goodman on . In brief, patient is a 53-year-old female with past medical history significant for the above, who presented to the emergency department due to pleuritic right thorax pain, worse with deep breathing and 8/10 in intensity even with taking Suboxone. The patient presented to the emergency department and had an elevated D-dimer. Her pain was only responsive to Dilaudid IV. At the time of admission, the patient was tachycardic and started on Lovenox due to the findings of PE, which likely explained her pain. The patient had elevated liver enzymes in a non-cholestatic pattern. Upon admission, the patient was transitioned from Lovenox to Eliquis. The patient had no signs of bleeding and no hypotension. The patient was initially mildly tachycardic and her pulse rate trended down to the normal range. The patient had no fevers and no cough. The patient continued to have severe flank pain, which was initially controlled with Dilaudid and then was able to be controlled with oral oxycodone. On 02/16/19, the patient's AST and ALT trended down. During her hospitalization, the patient had acute hepatitis panel, which was nonreactive. The patient had previously been told she had fatty liver disease, but had no previous liver dysfunction to this degree. The patient showed no other signs of cor pulmonale. The patient had no recent changes in her medications that would explain this change. The patient had no clots in her hepatic veins. The patient had no other liver pathology visualized on CTA. The patient had a cholecystectomy several decades ago. The patient was stable enough for discharge on 02/16/19. PHYSICAL EXAMINATION ON THE DAY OF DISCHARGE: General: The patient is a 53- year- old female, who appears as her stated age, sitting comfortably in bed, in no acute distress. Vital Signs: At the time of discharge, temperature 98.2, pulse rate 86, respiratory rate 20, oxygen saturation 98% on room air, blood pressure 123/75. HEENT: Head: Normocephalic, atraumatic. Sclerae anicteric. No conjunctival injection. Nasal mucosa is moist. Oral mucosa moist. No pharyngeal erythema, discharge or exudate. Neck: Supple, nontender. No lymphadenopathy. No carotid bruits auscultated. No JVD. Cardiac: Regular rate and rhythm. No clicks, murmurs, gallops or rubs. Pulses 2+ in the bilateral dorsalis pedis, posterior tibialis and radial areas. No bilateral lower extremity edema noted. Respiratory: Clear to auscultation bilaterally. No wheezes, rales or rhonchi. Good air exchange bilaterally. Abdomen: Soft, nontender, nondistended. Bowel sounds present and normoactive in all 4 quadrants. No hepatosplenomegaly. No abdominal bruits auscultated. No hepatojugular reflux. Genitourinary: No suprapubic or CVA tenderness. Skin: Clear, dry and intact. No rash. Neuro: Cranial nerves II through XII are intact. No focal deficits. Alert and oriented x3. Psychiatric: Pleasant and cooperative. DISCHARGE PLAN: The patient will be discharged to home with her . The patient will have Percocet for short-term pain control. The patient initially was given 8-tablet supply from the inpatient pharmacy due to the concerns with her insurance coverage for the Percocet. This has been discussed with the patient and she was in agreement that it should be for acute pain, which is likely to resolve and was already improving with anticoagulation and as her pulmonary embolism begins to dissolve. The patient should follow up with her primary care provider in 1 week for ongoing assessment of her pain management needs. The patient will be given Eliquis for a total of 7 days of 10 mg b.i.d. followed by ongoing Eliquis 5 mg p.o. b.i.d. for at least 3 months. Risks and benefits of ongoing anticoagulation at that point should be discussed with the patient's primary care provider. The patient had a factor V Leiden and prothrombin gene mutation sent while in the hospital, results of which are pending. These should be followed up with the patient's primary care provider. The patient should continue work on her blood glucose control having significantly elevated blood glucose on admission, but good blood glucose control while in the hospital. The patient should follow up with the pain clinic as needed. The patient had minimal right ventricular dysfunction on echocardiogram. The patient's elevated liver enzymes should be repeated in about 1 week at her followup appointment. There is no clear cause for her elevated liver enzymes. This may be due to BRENNAN or possibly from cor pulmonale related to the patient's acute pulmonary embolism. Also in the differential is transient hypoperfusion related the patient pulmonary embolism as well as drug reaction. No new drugs are evident as the culprit. The patient will return to the hospital for passing out, severe increases in her pain, different chest pain , severe shortness of breath or other alarming symptoms. The patient should have a consistent carbohydrate diet. The patient should engage in activity as tolerated. TIME SPENT: Approximately, 60 minutes was spent on the discharge of this patient, 30 of which was spent [id number] with the patient obtaining history and physical and discussing treatment plan. POLO DENNIS [id number]/[facility] #: [id number] KYLE
[2019-02-17 16:15] LABS: Factor V Leiden Mutation Negative (Negative); Prothrombin 20210 Mutation Negative (Negative)
== END 2019-02-16 14:38 | disposition home or self-care (01) | DRG 134 ==
LOC: ED 16:19 → UNDOADMOB 21:41 → OBSVTOIN 21:41 → MED 21:41 → INTOOBSV 21:41 → OBSVTOIN 02-15 13:58
PROVIDERS: ADMIT Internal Medicine; ATTEND Internal Medicine
DX: I26.99 Other pulmonary embolism without acute cor pulmonale (principal); R74.0 Nonspecific elevation of levels of transaminase and lactic acid dehydrogenase [LDH]; E11.65 Type 2 diabetes mellitus with hyperglycemia; I10 Essential (primary) hypertension; E78.5 Hyperlipidemia, unspecified; K21.9 Gastro-esophageal reflux disease without esophagitis; F32.9 Major depressive disorder, single episode, unspecified; E11.43 Type 2 diabetes mellitus with diabetic autonomic (poly)neuropathy; K31.84 Gastroparesis; I08.1 Rheumatic disorders of both mitral and tricuspid valves; F17.210 Nicotine dependence, cigarettes, uncomplicated; Z66 Do not resuscitate; F11.90 Opioid use, unspecified, uncomplicated; J44.9 Chronic obstructive pulmonary disease, unspecified; E78.00 Pure hypercholesterolemia, unspecified; M19.90 Unspecified osteoarthritis, unspecified site; G43.909 Migraine, unspecified, not intractable, without status migrainosus; F41.9 Anxiety disorder, unspecified; G89.29 Other chronic pain; Z79.4 Long term (current) use of insulin; Z79.01 Long term (current) use of anticoagulants; Z90.49 Acquired absence of other specified parts of digestive tract; Z90.710 Acquired absence of both cervix and uterus; Z88.8 Allergy status to other drugs, medicaments and biological substances; Z88.2 Allergy status to sulfonamides; Z88.0 Allergy status to penicillin; Z82.49 Family history of ischemic heart disease and other diseases of the circulatory system; Z80.0 Family history of malignant neoplasm of digestive organs
CPT/HCPCS: 36415; 71275; 74177; 80053; 80074; 80076; 81003; 81240; 81241; 82150; 83605; 83690; 83735; 83880; 84484; 85025; 85379; 85730; 86140; 93005; 93306; 93970; 99284; A9270-GY; J1170; J1650; J2270; Q9967

== ENCOUNTER 2019-02-27 19:49 | Emergency (ER) | payer OTHER ==
--- OUTSIDE RECORDS SUMMARY | 2019-02-27 20:00 | XMS REPORT | Continuity of Care Document ---
:1965 External Reference #:[id number] Author Name Kareem Emmy Care Team Providers Name Role Phone Armen Goodman MD Primary Care Physician Unavailable Payers Date Identification Numbers Payment Provider Subscriber Policy Number: [id number] Cain [place] PayID: [id number] [address] [place] [address] Advance Directives Description No Information Available Problems Date Description Provider Status Onset: 09/13/2018 Type II diabetes mellitus uncontrolled Armen Goodman MD Active Onset: 09/13/2018 Essential hypertension Armen Goodman MD Active Onset: 09/13/2018 Hyperlipidemia Armen Goodman MD Active Onset: 09/13/2018 Opioid dependence, uncomplicated Armen Goodman MD Active Onset: 09/13/2018 Dyspnea Aremn Goodman MD Active Onset: 09/13/2018 Edema Armen [...] Onset: 12/12/2018 Constipation Armen Goodman MD Active Onset: 02/22/2019 Elevated levels of transaminase & lactic acid Armen Goodman MD Active dehydrogenase Onset: 02/22/2019 Acute cor pulmonale Armen Goodman MD Active Family History Date Family Member(s) Observation Comments Father Pancreatic Cancer Father due to [...] smoker, smokes every day Smoking Status Reviewed: 02/22/19 Patient is a current smoker, smokes every [...] 8.6-50mg 30tab Take 1 K59.00 Armen Sodium 2019 s tablet MD Rex daily Nicotine 12/12/ Active Patches 21mg/24HR 28uni 1 patch Armen Transdermal 2019 24HR ts daily MD Rex System Step 1 Butalbital/Acetam 09/22/ Active Tablets 50-325-40 14tab 1 by mouth Armen inophen/Caffeine 2018 mg s twice a day MD Rex as needed headache max 2 days/wk Freestyle System 09/13/ Active Kit 1unit For blood E11.65 Armen 2018 s glucose MD Rex monitoring. Freestyle Test 09/13/ Active Strips 100un For blood E11.65 Armen 2018 its glucose MD Rex monitoring at least 3 times a day. Lancets 09/13/ Active Misc 30G 100un for use E11.65 Armen 2018 its with your MD Rex glucometer Basaglar Kwikpen 09/13/ Active Solution 100Unit/M 15ml inject 50U 2017 Pen-Injec L twice a MD Rex t day. . Admelog 09/13/ Active Solution 100Unit/M 30ml 10U three Armen 2017 L times a day MD Rex with each meal Insulin 09/13/ Active Misc 30G X 100un For use Armen Syringe/0.5ML/30G 2017 12" 0.5 its with MD Rex X 1/2" [...] HCL-Naloxone HCL 0000 Sub day as needed Promethazine HCL / Active Tablets 25mg 90tab 1 by mouth Armen 0000 s every 8 MD Rex hours as needed nausea with headache Eliquis / Active Tablets 5mg 1 by mouth Unknown 0000 twice a day Steglatro 11/07/ Hx Tablets 5mg 30tab not E11.9 Uribe 2018 - s taking-1 by MD Yoel 02/21/ mouth every 2018 day Clonazepam 10/10/ Hx Tablets 0.5mg 12tab one by F41.1 Armen 2017 - s mouth three MD Rex 10/14/ times a day 2018 as needed anxiety Clonidine HCL 10/10/ Hx Tablets 0.1mg 9tabs Take 1 tab F11.20 Armen 2017 - every 8 MD Rex 10/14/ hours 2018 Carafate 09/13/ Hx Tablets 1gm 240ta take 1 Armen 2017 - bs tablet by MD Rex 02/20/ mouth 4 2018 times a day Nicotine 09/13/ Hx Patches 14mg/24HR 42uni take 1 F17.210 Dian 2018 - 24HR ts patch Jemner, 12/12/ daily. DO 2018 Fioricet / Hx Capsules 50-300-40 14cap 1 by mouth Armen 0000 - mg s twice a day MD Rex 09/22/ as needed 2018 headache max 2 days/wk Hydroxyzine HCL / Hx Tablets 25mg 1 tablets Unknown 0000 - by mouth 12/12/ every 6-8 2019 hours as needed for anxiety Lantus Solostar // Hx Solution 100Unit/M 45ml 40 units Armen 0000 - Pen-Injec L twice daily MD Rex 2017 Cyclobenzaprine / Hx Tablets 10mg 30tab 1 tablet by Armen HCL 0000 - s mouth q8 MD Rex 12/12/ hours as 2019 needed muscle spasms Phenergan 00/ Hx 25mg 30uni 1 tab every Armen 0000 - ts 6 hours as MD Rex needed 2018 Protonix /00/ Hx Tablets 40mg 1 by mouth Unknown 0000 - DR every day 2018 Clindamycin HCL 00/00/ Hx Capsules 300mg take one Unknown 0000 - tab three 10/06/ times a 2017 day. Immunizations Description No Information Available Vital Signs Date Vital Result Comment 02/22/2019 1:40pm Weight 140.00 lb Heart Rate 96 /min BP Systolic 138 mmHg BP Diastolic 78 mmHg Respiratory Rate 16 /min Body Temperature 98.5 F Pain Level 4 ribs O2 % BldC Oximetry 97 % 12/12/2018 2:58pm Weight 145.00 lb Heart Rate [...] Date Facility Test Result H/L Range Note Liver Function 02/22/2019 [facility] Total Protein 7.1 g/dL N 6.4-8.[address] [place] [address] [phone] Albumin 4.4 g/dL N 3.2-5.2 Globulin 2.7 g/dL N 2-4 Albumin/Globulin Ratio 1.6 N 1-3 Total Bilirubin 0.30 mg/dL N 0.2-1.0 Direct Bilirubin 0.10 mg/dL N 0.03-0.18 Indirect Bilirubin 0.2 mg/dL Low 0.3-1.0 Alkaline Phosphatase 127 U/L High 34-104 Alt 71 U/L High 7-52 Ast 30 U/L N 13-39 Laboratory test 02/14/2019 [facility] D Dimer 412 ng/mL High Less [address] Quantitative [address] [place] [address] [phone] Lactic Acid 0.7 mmol/L N 0.5-2.0 2 CBC Auto Diff 02/14/2019 [facility] White Blood 5.6 10^3/uL N 3.5-10.[address] [place] [address] [phone] Red Blood Count 4.72 10^6/uL N 3.70-4.87 Hemoglobin 13.4 g/dL N 12.0-16.0 Hematocrit 40 % N 33-41 Mean Corpuscular Volume 84 fL N 80-97 Mean Corpuscular Hemoglobin 28 pg N 27-31 Mean Corpuscular HGB Conc 34 g/dL N 31-36 Red Cell Distribution Width 15 % N 10.5-15 Platelet Count 203 10^3/uL N 150-450 Mean Platelet Volume 9.3 fL N 7.4-10.4 Abs Neutrophils 3.4 10^3/uL N 1.5-7.7 Abs Lymphocytes 1.7 10^3/uL N 1.0-4.8 Abs Monocytes 0.4 10^3/uL N 0-0.8 Abs Eosinophils 0.1 10^3/uL N 0-0.6 Abs Basophils 0.1 10^3/uL N 0-0.2 Abs Nucleated RBC 0 10^3/uL Granulocyte % 60.0 % Lymphocyte % 30.8 % Monocyte % 6.6 % Eosinophil % 1.6 % Basophil % 1.0 % Nucleated Red Blood Cells % 0 Urinalysis Profile 02/14/2019 [facility] Urine Color Straw [address] [place] [address] [phone] Urine Appearance Clear Urine Specific [place] 1.026 N 1.010-1.030 Urine pH 8.0 N 5-9 Urine Urobilinogen Negative Negative Urine Ketones Negative Negative Urine Protein Negative Negative Urine Leukocytes Negative Negative Urine Blood Negative Negative Urine Nitrite Negative Negative Urine Bilirubin Negative Negative Urine Glucose 3+(>=500 mg/dL) Abnormal Negative Comp Metabolic Panel 02/14/2019 [facility] Sodium 136 mmol/L N 135-145 [address] [place] [address] [phone] Potassium 3.9 mmol/L N 3.5-5.0 Chloride 103 mmol/L N 101-111 Co2 Carbon Dioxide 25 mmol/L N 22-32 Anion Gap 8 mmol/L N 2-11 Glucose 389 mg/dL High 70-100 Blood Urea Nitrogen 13 mg/dL N 6-24 Creatinine 0.65 mg/dL N 0.51-0.95 BUN/Creatinine Ratio 20.0 N 8-20 Calcium 9.1 mg/dL N 8.6-10.3 Total Protein 6.9 g/dL N 6.4-8.9 Albumin 4.0 g/dL N 3.2-5.2 Globulin 2.9 g/dL N 2-4 Albumin/Globulin Ratio 1.4 N 1-3 Total Bilirubin 0.30 mg/dL N 0.2-1.0 Alkaline Phosphatase 152 U/L High 34-104 Alt 225 U/L High 7-52 Ast 128 U/L High 13-39 Egfr Non- 94.6 >60 Egfr 114.5 >60 3 Laboratory test finding 02/14/2019 [facility] Amylase 27 U/L Low 29-[address] [place], [place] [id number] [phone] Lipase 30 U/L N 11.0-82.0 C Reactive Protein 24.75 mg/L High <8.01 Troponin-I (TnI) 0.00 ng/mL <0.04 4 B-Type Natriuretic Peptide BNP 25 pg/mL <=100 Wound 12/17/2018 [facility] Wound/Misc SEE RESULT 5 Culture/Sensi [address] [place] [place] [address] Stain [phone] Laboratory test 12/17/2018 [facility] MRSA/S. aureus SEE RESULT [address] Ssti PCR BELOW [place], [place] [address] [phone] CBC Auto Diff 12/17/2018 [facility] White Blood Count 7.6 10^3/ uL N 3.5-[address] 0[address]8 [place], [place] [address] [phone] Red Blood Count 4.76 10^6/uL N 4.00-5.40 Hemoglobin 13.1 g/dL N 12.0-16.0 Hematocrit 39 % N 35-47 Mean Corpuscular Volume 83 fL N 80-97 Mean Corpuscular Hemoglobin 28 pg N 27-31 Mean Corpuscular HGB Conc 33 g/dL N 31-36 Red Cell Distribution Width 14 % N 10.5-15 Platelet Count 228 10^3/uL N 150-450 Mean Platelet Volume 8.9 fL N 7.4-10.4 Abs Neutrophils 5.6 10^3/uL N 1.5-7.7 Abs Lymphocytes 1.5 10^3/uL N 1.0-4.8 Abs Monocytes 0.4 10^3/uL N 0-0.8 Abs Eosinophils 0.1 10^3/uL N 0-0.6 Abs Basophils 0 10^3/uL N 0-0.2 Abs Nucleated RBC 0 10^3/uL Granulocyte % 73.4 % Lymphocyte % 20.0 % Monocyte % 5.2 % Eosinophil % 0.8 % Basophil % 0.6 % Nucleated Red Blood Cells % 0.1 Comp Metabolic Panel 12/17/2018 [facility] Sodium 136 mmol/L N 135-[address] [place] [address] [phone] Potassium 3.5 mmol/L N 3.5-5.0 Chloride 104 mmol/L N 101-111 Co2 Carbon Dioxide 25 mmol/L N 22-32 Anion Gap 7 mmol/L N 2-11 Glucose 279 mg/dL High 70-100 Blood Urea Nitrogen 16 mg/dL N 6-24 Creatinine 0.63 mg/dL N 0.51-0.95 BUN/Creatinine Ratio 25.4 High 8-20 Calcium 9.3 mg/dL N 8.6-10.3 Total Protein 7.6 g/dL N 6.4-8.9 Albumin 4.1 g/dL N 3.2-5.2 Globulin 3.5 g/dL N 2-4 Albumin/Globulin Ratio 1.2 N 1-3 Total Bilirubin 0.30 mg/dL N 0.2-1.0 Alkaline Phosphatase 121 U/L High 34-104 Alt 14 U/L N 7-52 Ast 11 U/L Low 13-39 Egfr Non- 98.1 >60 Egfr 118.7 >60 7 Laboratory test 12/17/2018 [facility] C Reactive 84.04 mg/L High <8.[address] [place] [address] [phone] Blood Culture SEE RESULT BELOW 8 Laboratory test 12/13/2018 [facility] Point of 171 mg/dL High 70-100 [address] [place] [address] [phone] Urine Culture And 12/12/2018 [facility] Urine SEE RESULT [address] [place] [address] [phone] Urinalysis Profile 12/12/2018 [facility] Urine Color Yellow [address] [place] [address] [phone] Urine Appearance Clear Urine Specific [place] 1.017 N 1.010-1.030 Urine pH 5.0 N 5-9 Urine Urobilinogen Negative Negative Urine Ketones Negative Negative Urine Protein Negative Negative Urine Leukocytes Negative Negative Urine Blood 1+ Abnormal Negative Urine Nitrite Negative Negative Urine Bilirubin Negative Negative Urine Glucose 3+(>=500 mg/dL) Abnormal Negative Urine White Blood Cell Trace(0-5/hpf) Absent Urine Red Blood Cell Trace(0-2/hpf) Absent Urine Bacteria 1+ Abnormal Absent Laboratory test 12/12/2018 [facility] Ammonia 41 mcmol/L N 16- [address] [place] [address] [phone] CBC Auto Diff 12/12/2018 [facility] White Blood 7.2 10^3/uL N 3.5-10.[address] [place] [address] [phone] Red Blood Count 4.96 10^6/uL N 4.00-5.40 [...] % Nucleated Red Blood Cells % 0 Comp Metabolic Panel 12/12/2018 [facility] Sodium 139 mmol/L N 135-[address] [place] [address] [phone] Potassium 3.9 mmol/L N 3.5-5.0 Chloride 104 [...] Egfr Non- 114.8 >60 Egfr 138.9 >60 11 Laboratory test 12/12/2018 [facility] Hemoglobin A1c 10.8 % High 4.0-5.6 [address] (Glyco HGB) [place] [address] [phone] CBC Auto Diff 11/13/2018 [facility] White Blood 7.6 N 3.5- 10.[address] Count 10^3/[place] [address] [phone] Red Blood Count 4.72 10^6/uL N 4.00-5.40 [...] Cells % 0.1 Comp Metabolic Panel 11/13/2018 [facility] Sodium 136 mmol/L N 135-[address] [place] [address] [phone] Potassium 3.9 mmol/L N 3.5-5.0 Chloride 105 [...] Egfr Non- 94.6 >60 Egfr 114.5 >60 13 Laboratory test 11/13/2018 [facility] Lipase 44 U/L N 11.0- 82.[address] [place] [address] [phone] Urine 11/07/2018 [facility] Ur Microalbumin 17.[address] (mg/L) [place] [address] [phone] Urine Creatinine 68.85 mg/dL Urine Microalbumin/Creatinine 25.8 N <31 Laboratory test 11/07/2018 [facility] C-Peptide 3.0 ng/mL 1.1 - 4.4 [address] [place] [address] [phone] Glucose 360 mg/dL High 70-100 TSH (Thyroid Stim Horm) 1.32 mcIU/mL N 0.34-5.60 Free T4 (Free Thyroxine) 0.65 ng/dL N 0.61-1.12 Laboratory test finding 11/07/2018 [employer] Glucose Random 411 Ketones 0.0 Laboratory test 09/13/2018 [facility] Hemoglobin A1c 13.0 % High 4.0-5.6 [address] (Glyco HGB) [place] [address] [phone] Urine 09/13/2018 [facility] Ur Microalbumin < 15.[address] (mg/L) [place] [address] [phone] Urine Creatinine 44.30 mg/dL Urine Microalbumin/Creatinine TNP <31 16 Comp Metabolic Panel 09/13/2018 [facility] Sodium 142 mmol/L N 135-[address] [place] [address] [phone] Potassium 4.6 mmol/L N 3.5-5.0 Chloride 107 [...] Egfr Non- 105.8 >60 Egfr 128.0 >60 17 CBC Auto Diff 09/13/2018 [facility] White Blood 5.8 10^3/uL N 3.5-10.[address] [place] [address] [phone] Red Blood Count 4.57 10^6/uL N 4.00-5.40 [...] Blood Cells % 0.1 Laboratory test 09/13/2018 [facility] B-Type Natriuretic 46 pg/ mL [address] Peptide BNP [place], [place] [address] [phone] 1 Please note: The following may produce a false positive D Dimer test: - Rheumatoid factor greater than 60 IU/ml - Plasma hemoglobin greater than 0.05 gm/dl - Bilirubin greater than 50 mg/dl - Lipids greater than 1000 mg/dl - FDP greater than 20 ug/ml 2 [facility] Severe Sepsis and Septic Shock Management Bundle Measure requires all lactic acids initially measuring >2.0 mmol/L be repeated. 3 Because ethnic data is not always [...] 5 Kidney failure <15 (or dialysis) 4 Troponin-I testing on Plasma Separator Tubes (PST) has a known false positive rate of 0.20-0.40%. All positive troponins reflex immediate secondary confirmatory testing. 5 SEE RESULT BELOW Name: EVIE BOSTON : [address]: Goyo Allen MD Acct: [id number] Unit: [id number] AGE: 53 Location: ED Re12/16/18 SEX: F Status: REG ER SPEC: [id number] UZAIR: 12/17/[address]: Goyo Allen MD REQ: [id number] RECD: 12/17/18 STATUS: RES [facility] DR: Armen Goodman MD _ SOURCE: ABDOMEN SPDESC: ORDERED: Culture Stain Procedure Result Reported Site Wound/Misc Gram Stain Final 12/17/18- 317 ML 4+ Neutrophils 4+ Gram Positive Cocci 4+ Gram Negative Coccobacilli 3+ Gram Negative Bacilli Wound/Misc Culture PENDING * ML - Main Lab . END OF REPORT DEPARTMENT OF PATHOLOGY, [address] [place] [address] Hu Koch M.D. Director [facility] # [id number] 6 SEE RESULT BELOW Name: EVIE BOSTON : [address]: Goyo Allen MD Acct: [id number] Unit: [id number] AGE: 53 Location: ED Re12/16/18 SEX: F Status: DEP ER SPEC: [id number] UZAIR: 12/17/[address]: Goyo Allen MD REQ: [id number] RECD: 12/17/18 STATUS: LYNNE ROGER DR: Armen Goodman MD _ SOURCE: ABDOMEN [facility]: ORDERED: MRSA/SA SSTI, Culture Stain Procedure Result Reported Site MRSA/S. aureus SSTI PCR Final 12/17/18- 0433 ML Organism 1 MRSA NEGATIVE Organism 2 S.AUREUS NEGATIVE Wound/Misc Gram Stain Final 12/17/18- 8 ML 4+ Neutrophils 4+ Gram Positive Cocci 4+ Gram Negative Coccobacilli 3+ Gram Negative Bacilli Wound/Misc Culture Final 12/19/18- 1126 ML Organism 1 [employer] F[employer]ERI Quantity 2+ Organism 2 BACTEROIDES CACCAE Quantity 3+ Beta Lactamase Positive 1. [employer] FARMERI M.I.C. RX --------- ------ Cefazolin >=64 R Cefepime <=1 S Ceftriaxone <=1 S Ciprofloxacin <=0.25 S Gentamicin <=1 S Levofloxacin <=0.12 S Meropenem <=0.25 S Tetracycline <=1 S Pipercillin/Tazobactam <=4 S Trimethoprim/Sulfamethoxazole <=20 S CONTINUED ON NEXT PAGE DEPARTMENT OF PATHOLOGY, [address] [place] [address] Hu Koch M.D. Director [facility] # [id number] Patient: EVIE BOSTON [id number] (Continued) Specimen: [id number] Collected: 12/17/18 Received: 12/17/18 (Continued) Procedure Result Reported Site Wound/Misc Culture Final (continued) 12/19/18- 1125 1. [employer] FARMERI (continued) M.I.C. RX --------- ------ Amoxicillin/Clavulanic Acid 4 S Aztreonam <=1 S Contact the Microbiology Department for any additional antibiotic reporting. * ML - Main Lab . END OF REPORT DEPARTMENT OF PATHOLOGY, [address] [place] [address] Hu Koch M.D. Director [facility] # [id number] 7 Because ethnic data is not always readily [...] 15-29 5 Kidney failure <15 (or dialysis) 8 SEE RESULT BELOW Name: EVIE BOSTON : [address]: Goyo Allen MD Acct: [id number] Unit: [id number] AGE: 53 Location: ED Re12/16/18 SEX: F Status: DEP ER SPEC: [id number] UZAIR: 12/17/[address]: Goyo Allen MD REQ: [id number] RECD: 12/17/18 STATUS: COMP OTHR DR: Armen Goodman MD _ SOURCE: BLOOD,VENO SPDESC: ORDERED: Blood Cult, MRSA/SA BC PCR COMMENTS: Blood Culture bottle(s) are overfilled. Increased chance of false positive results. Verbal to [id number] by [id number] at 0301 on 12/17/18. Verbal to [id number] by [id number] at 0012 on 12/21/18. Results read back accurately. Procedure Result Reported Site Aerobic Culture Bottle Final 12/22/18- 0258 ML No Growth Day 5 Anaerobic Culture Bottle Final 12/24/18- 0845 ML Anaerobic Btl Gram Stain Gram Positive Cocci resembling Staph Organism 1 PEPTOSTREPTOCOCCUS ANAEROBIUS Anaerobic sensitivities are not routinely performed. Positive isolates will be saved for one week. Please call the Microbiology Laboratory if susceptibility testing is needed. MRSA/S. aureus Blood Cult PCR Final 12/21/18- 0015 ML Organism 1 MRSA NEGATIVE Organism 2 S.AUREUS NEGATIVE * ML - Main Lab . END OF REPORT DEPARTMENT OF PATHOLOGY, [address] [place] [address] Hu Koch M.D. Director [facility] # [id number] 9 [employer]: [id number] 10 SEE RESULT BELOW Name: EVIE BOSTON : [address]: Armen Goodman MD Acct: [id number] Unit: [id number] AGE: 53 Location: LAB Re12/12/18 SEX: F Status: REG REF SPEC: [id number] UZAIR: 12/12/18 [facility] DR: Armen Goodman MD REQ: [id number] RECD: 12/12/18 STATUS: COMP _ SOURCE: URINE SPDESC: ORDERED: Urine Culture Procedure Result Reported Site Urine Culture Final 12/13/18- 1602 ML No growth of clinically significant organisms * ML - Main Lab . END OF REPORT DEPARTMENT OF PATHOLOGY, [address] [place] [address] Hu Koch M.D. Director [facility] # [id number] 11 Because ethnic data is not always readily [...] 15-29 5 Kidney failure <15 (or dialysis) 12 Therapeutic target for the treatment of diabetes mellitus patients is <7% HBA1C, and in selective patients <6.0%. Please refer to [employer] diabetic care guidelines for further information. 13 Because ethnic data is not always readily [...] 15-29 5 Kidney failure <15 (or dialysis) 14 Test Performed by: [facility] [address] [place] [address] 15 Therapeutic target for the treatment of diabetes mellitus patients is <7% HBA1C, and in selective patients <6.0%. Please refer to [employer] diabetic care guidelines for further information. 16 Unable to calculate due to low microalbumin 17 Because ethnic data is not always readily [...] 15-29 5 Kidney failure <15 (or dialysis) 18 >100 to <200 pg/mL: likely compensated congestive heart failure (CHF) 200 to 400 pg/mL: likely moderate CHF >400 pg/mL: likely moderate to severe CHF Procedures Date Code Description Status 02/15/2019 33319 ECHO Transthorasic Realtime 2D W Doppler & Color Flow Completed Hosp 02/21/2018 [id number] Colonoscopy Completed Encounters Type Date Location Provider Dx Diagnosis Office Visit 12/12/2018 [facility] Armen Goodman MD R10.11 Right upper 2:20p [facility] quadrant pain R00.0 Tachycardia, unspecified K31.84 Gastroparesis E11.9 Type 2 diabetes mellitus without complications 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 J18.9 Pneumonia, unspecified organism R27.8 Other lack of coordination G93.41 Metabolic encephalopathy K59.00 Constipation, unspecified Office Visit 11/07/2018 9:20a [facility], Z79.4 group home [facility] [place] (current) use of insulin E11.9 Type 2 diabetes mellitus without complications R10.9 Unspecified abdominal pain R94.6 Abnormal results of thyroid function studies F41.1 Generalized anxiety disorder Office Visit 10/18/2018 [facility] Emmy J18.9 Pneumonia, 9:40a Assocval[facility]io NP unspecified Hospitalists organism E11.9 Type 2 diabetes mellitus without complications 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 F11.10 Opioid abuse, uncomplicated Office Visit 10/17/2018 [facility] Emmy J18.9 Pneumonia, 9:40a Assocvalerio NP unspecified Hospitalists organism R41.3 Other amnesia Office Visit 10/16/2018 [facility] Irmma R65.10 Sirs of 9:40a valerio Swanson MD non-infectious Hospitalists origin w/o acute organ dysfunction J18.9 Pneumonia, unspecified organism N39.0 Urinary tract infection, site not specified Office Visit 10/15/2018 [facility] Manny Snyder R65.10 Sirs of 9:39a valerio Swanson non-infectious Hospitalists Azeem,FACP origin w/o acute organ dysfunction N39.0 Urinary tract infection, site not specified E11.9 Type 2 diabetes mellitus without complications Z79.4 group home (current) use of insulin F11.11 Opioid abuse, in remission Office Visit 10/10/2018 1:00p [facility] Armen Goodman, F11.20 Opioid dependence, [facility] MD uncomplicated E11.65 Type 2 diabetes mellitus with hyperglycemia F33.9 Major depressive disorder, recurrent, unspecified K31.84 Gastroparesis F41.1 Generalized anxiety disorder K29.70 Gastritis, unspecified, without bleeding I10 Essential (primary) hypertension E78.5 Hyperlipidemia, unspecified F17.210 Nicotine dependence, cigarettes, uncomplicated Office Visit 09/13/2018 10:00a [facility] Armen Goodman, E11.65 Type 2 diabetes [facility] MD mellitus with hyperglycemia I10 Essential (primary) hypertension E78.5 Hyperlipidemia, unspecified F11.20 Opioid dependence, uncomplicated R06.02 Shortness of breath R60.0 Localized edema F17.210 Nicotine dependence, cigarettes, uncomplicated F33.9 Major depressive disorder, recurrent, unspecified Plan of Treatment Future Appointment(s):05/08/2019 9:00 am - Armen Goodman MD [facility]02/22/2019 - Armen Goodman MDR74.0 Nonspecific elevation of levels of transaminase and lactic aI26.09 Other pulmonary embolism with acute cor tditbmivqF97.84 CugezotfaunhxT35.9 Type 2 diabetes mellitus without complications
--- NOTE | 2019-02-27 21:18 | ED ---
Shortness of Breath - HPI Summary HPI Summary: This patient is a 53 year old F presenting to ED with a chief complaint of SOB since 3 days ago. The patient rates the pain 3/10 in severity. Symptoms aggravated by exertion. Symptoms alleviated by nothing. Patient reports cough, nasal congestion, CP and upper back pain, chills, tachycardia, and diarrhea ( loose stool). Patient denies fever, LE edema, and N/V. Patient has had her flu shot. Patient has had a PE (dx a couple weeks ago). PMHx of DM, HTN, HLD. Her sugar has been a bit high recently. Patient is on blood thinners. Patient is a former smoker. - History of Current Complaint Chief Complaint: EDShortnessOfBreath Time Seen by Provider: 02/27/19 21:09 Hx Obtained From: Patient Onset/Duration: Sudden Onset, Lasting Days, Still Present Timing: Constant Current Severity: Mild - 3/10 Dyspnea At: Exertion Aggrevating Factors: Other - exertion Alleviating Factors: Nothing Associated Signs & Symptoms: Cough (Nonproductive), Chest Pain w/Cough, Chills, Nasal Congestion - Allergy/Home Medications Allergies/Adverse Reactions: Allergies Allergy/AdvReac Type Severity Reaction Status Date / Time metoclopramide Allergy Unknown Unknown Verified 02/27/19 19:58 Reaction Details Sulfa (Sulfonamide Allergy Unknown Hives Verified 02/27/19 19:58 Antibiotics) Penicillins AdvReac Unknown Altered Verified 02/27/19 19:58 Mental Status Home Medications: Home Medications Apixaban* [Eliquis*] 5 mg PO BID 02/27/19 [History Confirmed 02/27/19] Lisinopril TAB* [Prinivil TAB 10 MG*] 40 mg PO DAILY 02/27/19 [History Confirmed 02/27/19] Polyethylene Glycol 3350* [Miralax*] 17 gm PO DAILY 02/27/19 [History Confirmed 02/27/19] Senna/Docusate (NF) 1 tab PO DAILY 02/27/19 [History Confirmed 02/27/19] amLODIPine TAB* [Norvasc 5 mg TAB*] 10 mg PO DAILY 02/27/19 [History Confirmed 02/27/19] PMH/Surg Hx/FS Hx/Imm Hx Endocrine/Hematology History: Reports: Hx Diabetes Cardiovascular History: Reports: Hx Hypercholesterolemia, Hx Hypertension Respiratory History: Reports: Hx Chronic Obstructive Pulmonary Disease (COPD) Denies: Hx Asthma GI History: Reports: Hx Ulcer History: Denies: Hx Renal Disease Musculoskeletal History: Reports: Hx Arthritis, Hx Back Problems, Other Musculoskeletal History - sciatica Sensory History: Reports: Hx Contacts or Glasses - READING GLASSES Denies: Hx Legally Blind, Hx Deafness, Hx Hearing Aid Opthamlomology History: Reports: Hx Contacts or Glasses - READING GLASSES Denies: Hx Legally Blind Neurological History: Reports: Hx Migraine Psychiatric History: Reports: Hx Anxiety, Hx Depression - Cancer History Cancer Type, Location and Year: cervical - Surgical History Surgery Procedure, Year, and Place: cholecystectomy and right knee surgery Infectious Disease History: No Infectious Disease History: Denies: Traveled Outside the [place] in Last 30 Days - Family History Known Family History: Positive: Hypertension - Social History Alcohol Use: None Substance Use Type: Reports: None Hx Tobacco Use: Yes Smoking Status (MU): Current Every Day Smoker Amount Used/How Often: anywhere from 2 cigarettes to a pack a day Review of Systems Positive: Chills. Negative: Fever Negative: Erythema Positive: Other - nasal congestion. Negative: Sore Throat Positive: Chest Pain, Other - tachycardia Positive: Shortness Of Breath, Cough Positive: Diarrhea - loose stool. Negative: Abdominal Pain, Vomiting, Nausea Negative: dysuria, hematuria Positive: Other - upper back pain. Negative: Myalgia, Edema Negative: Rash Neurological: Other - denies dizziness All Other Systems Reviewed And Are Negative: Yes Physical Exam - Summary Physical Exam Summary: Constitutional: Well-developed, Well-nourished, Alert. (-) Distressed Skin: Warm, Dry HENT: Normocephalic; Atraumatic Eyes: Conjunctiva normal Neck: Musculoskeletal ROM normal neck. (-) JVD, (-) Stridor, (-) Tracheal deviation Cardio: Rhythm regular, tachycardic, Heart sounds normal; Intact distal pulses; The pedal pulses are 2+ and symmetric. Radial pulses are 2+ and symmetric. (-) Murmur Pulmonary/Chest wall: Looks short of breath, tachypnic, (-) Wheezes, (-) Rales, Coughing during exam Abd: Soft, (-) epigastric tenderness, (-) Distension, (-) Guarding, (-) Rebound Musculoskeletal: (-) Edema Lymph: (-) Cervical adenopathy Neuro: Alert, Oriented x3 Psych: Mood and affect Normal Triage Information Reviewed: Yes Vital Signs On Initial Exam: Initial Vitals Temp Pulse Resp BP Pulse Ox 99.1 F 140 16 156/92 98 02/27/19 19:56 02/27/19 19:56 02/27/19 19:56 02/27/19 19:56 02/27/19 19:56 Vital Signs Reviewed: Yes Diagnostics - Vital Signs Vital Signs Temp Pulse Resp BP Pulse Ox 02/27/19 19:56 99.1 F 140 16 156/92 98 - Laboratory Result Diagrams: 02/27/19 21:24 02/27/19 21:24 Lab Statement: Any lab studies that have been ordered have been reviewed, and results considered in the medical decision making process. - Radiology CXR Radiology Interpretation Completed By: ED Physician Summary of Radiographic Findings: No acute disease. Pending radiologist official report. - EKG 2001 Cardiac Rate: Tachycardia - 126 BPM EKG Rhythm: Sinus Tachycardia Summary of EKG Findings: No STEMI Course/Dx - Course Assessment/Plan: This patient is a 53 year old F presenting to ED with a chief complaint of SOB since 3 days ago. The patient rates the pain 3/10 in severity. Checked to make sure previously dx PE hasn't propogated. In the ED course, the patient was given fluids. EKG reveals sinus tachycardia at 126 BPM and no STEMI. CXR, per Dr. Woods, reveals no acute disease. This patient will be signed out to Dr. Allen upon shift change, pending CTA Chest. - Diagnoses Differential Diagnosis/HQI/PQRI: Positive: Other - SOB Provider Diagnoses: SOB (shortness of breath) Discharge - Sign-Out/Discharge Documenting (check all that apply): Sign-Out Patient - pending CTA chest Signing out patient TO: Goyo Allen Patient Received Moderate/Deep Sedation with Procedure: No - Discharge Plan Condition: Stable Referrals: Armen Goodman MD [Primary Care Provider] - - Attestation Statements Document Initiated by Scribe: Yes Documenting Scribe: Gelacio Weaver Provider For Whom Scribe is Documenting (Include Credential): Drake Woods MD Scribe Attestation: Gelacio Car, scribed for Drake Woods MD on 02/27/19 at 2150. Status of Scribe Document: Ready
[2019-02-27] MEDS ORDERED: NS 0.9% 1000 ML** 1,000 ML IV ONE ×2 (21:21→23:30)
[2019-02-27 21:31] LABS: ABS Basophils 0.1 10^3/ul (0-0.2); ABS Eosinophils 0.1 10^3/ul (0-0.6); ABS Lymphocytes 1.8 10^3/ul (1.0-4.8); ABS Monocytes 0.4 10^3/ul (0-0.8); ABS Neutrophils 4.9 10^3/ul (1.5-7.7); ABS Nucleated RBC 0 10^3/ul; Eosinophil % 1.2 %; Hematocrit 41 % (33-41); Hemoglobin 13.8 g/dL (12.0-16.0); Lymphocyte % 24.6 %; Mean Corpuscular HGB Conc 33 g/dL (31-36); Mean Corpuscular Hemoglobin 28 pg (27-31); Mean Corpuscular Volume 84 fL (80-97); Mean Platelet Volume 9.2 fL (7.4-10.4); Nucleated Red Blood Cells % 0.1; Platelet Count 231 10^3/uL (150-450); Red Blood Count 4.93 10^6 /uL (3.70-4.87); Red Cell Distribution Width 14 % (10.5-15); White Blood Count 7.2 10^3/uL (3.5-10.8)
[2019-02-27 21:39] LABS: Activated Partial Thrombo Time 30.3 seconds (26.0-36.3); INR 0.99 (0.77-1.02)
[2019-02-27 21:47] LABS: Albumin 4.2 g/dL (3.2-5.2); Albumin/Globulin Ratio 1.3 (1-3); BUN/Creatinine Ratio 22.5 (8-20); Calcium 9.6 mg/dL (8.6-10.3); EGFR African American 103.4 (>60); EGFR Non-African American 85.5 (>60); Globulin 3.3 g/dL (2-4); Potassium 4.1 mmol/L (3.5-5.0); Total Bilirubin 0.3 mg/dL (0.2-1.0); Total Protein 7.5 g/dL (6.4-8.9)
[2019-02-27] MEDS ORDERED: Iodixanol* (CONTRAST) 320 MG/ML 100 ML SDV IV ONE (21:53)
[2019-02-27 22:12] LABS: Influenza A Molecular NEGATIVE (Negative); Influenza B Molecular NEGATIVE (Negative)
--- NOTE | 2019-02-27 22:16 | ED ---
Progress - Progress Note Progress Note: The pt is a signout from Dr. Woods to Dr. Allen pending CTA chest results. VITAL SIGNS: Reviewed. GENERAL: Patient is a well-developed and nourished female who is lying comfortable in the stretcher. Patient is not in any acute respiratory distress. HEAD AND FACE: No signs of trauma. No ecchymosis, hematomas or skull depressions. No sinus tenderness. EYES: PERRLA, EOMI x 2, No injected conjunctiva, no nystagmus. EARS: Hearing grossly intact. Ear canals and tympanic membranes are within normal limits. MOUTH: Oropharynx within normal limits. NECK: Supple, trachea is midline, no adenopathy, no JVD, no carotid bruit, no c- spine tenderness, neck with full ROM. CHEST: Symmetric, no tenderness at palpation LUNGS: Mild bilateral expiratory wheezes. CVS: Regular rate and rhythm, S1 and S2 present, no murmurs or gallops appreciated. ABDOMEN: Soft, non-tender. No signs of distention. No rebound no guarding, and no masses palpated. Bowel sounds are normal. EXTREMITIES: FROM in all major joints, no edema, no cyanosis or clubbing. NEURO: Alert and oriented x 3. No acute neurological deficits. Speech is normal and follows commands. SKIN: Dry and warm - Results/Orders Results/Orders: Chest/Thorax CTA shows: 1. Decreased right lower lobe pulmonary embolism since 02/14/2019. Minimal residual remains in a posterior branch. No new interval pulmonary embolism is seen. 2. Slight interstitial prominence with minimal patchy ground glass infiltrates in the upper lobes which are slightly increased since the prior study. There is resolution of a focal subpleural infiltrate in the lateral right upper lobe since the prior study. ED physician has reviewed this report. Course/Dx - Course Course Of Treatment: The pt is a signout from Dr. Woods to Dr. Allen pending CTA chest results. Upon re-examination, the pt has mild bilateral expiratory wheezes. Chest/Thorax CTA shows: 1. Decreased right lower lobe pulmonary embolism since 02/14/2019. Minimal residual remains in a posterior branch. No new interval pulmonary embolism is seen. 2. Slight interstitial prominence with minimal patchy ground glass infiltrates in the upper lobes which are slightly increased since the prior study. There is resolution of a focal subpleural infiltrate in the lateral right upper lobe since the prior study. ED physician has reviewed this report. The pt is stable and will be sent home with a dx of reactive airway disease. Results discussed with patient and she is agreeable with this plan. - Diagnoses Provider Diagnoses: Reactive airway disease Discharge - Sign-Out/Discharge Documenting (check all that apply): Patient Departure, Receiving Sign-Out Receiving patient FROM: Drake Woods Patient Received Moderate/Deep Sedation with Procedure: No - Discharge Plan Condition: Stable Disposition: HOME Referrals: Armen Goodman MD [Primary Care Provider] - Additional Instructions: You may use your albuterol inhaler as needed with two puffs per day. Follow up with your primary care provider within the next 2-3 days. Return to the emergency department with any new or worsening symptoms. - Attestation Statements Document Initiated by Scribe: Yes Documenting Scribe: Marie Vinson Provider For Whom Antoinee is Documenting (Include Credential): Goyo Allen MD. Scribe Attestation: Marie Car, scribed for Goyo Allen MD. on 02/28/19 at 0116. Status of Scribe Document: Ready
[2019-02-27 22:35] LABS: TSH (Thyroid Stimulating Horm) 4.78 mcIU/mL (0.34-5.60)
[2019-02-27 22:37] LABS: Free T4 0.73 ng/dL (0.61-1.12)
[2019-02-27] MEDS ORDERED: Insulin REGULAR(*) 1 UNITS UNIT IV PUSH ONE (23:30)
[2019-02-28] MEDS ORDERED: Albuterol/Ipratropium NEB.SOL* Albuterol 2.5 MG/Ipratropium 0.5 MG 3 ML INH ONE (00:42)
[2019-02-28] MEDS ORDERED: Albuterol HFA INHALER* 8 gm MDI INH SCH (01:00)
[2019-02-28 01:26] VITALS: BP 145/84
== END 2019-02-28 02:09 | disposition home or self-care (01) ==
LOC: ED 19:49
DX: J45.909 Unspecified asthma, uncomplicated (principal); E11.9 Type 2 diabetes mellitus without complications; F17.210 Nicotine dependence, cigarettes, uncomplicated; I10 Essential (primary) hypertension; E78.5 Hyperlipidemia, unspecified; Z79.01 Long term (current) use of anticoagulants; Z88.2 Allergy status to sulfonamides; Z88.0 Allergy status to penicillin
CPT/HCPCS: 36415; 71045; 71275; 80053; 83605; 83880; 84439; 84443; 84484; 85025; 85610; 85730; 93005; 96360; 96361; 96374; 96375; 99284; A9270-GY; Q9967

== ENCOUNTER 2019-06-22 21:33 | Emergency (ER) | payer OTHER ==
[2019-06-22] MEDS ORDERED: Ketorolac INJ* 30 MG/ML 1 ML VIAL IV PUSH ONE (22:23)
--- NOTE | 2019-06-22 22:24 | ED ---
GI/ HPI - HPI Summary HPI Summary: This patient is a 54 year old F presenting to [facility] with a chief complaint of dysuria since 06/18/19. Pt reports RLQ radiating to flank, hematuria, dysuria, urgency, and frequency. Patient denies fever. Pt has a Hx of Kidney stones, kidney infection, degenerative disk disease. She usually passes the kidney stones on her own. She also reports she fell out of her truck in ED parking lot. Pt reports right shoulder pain, right leg pain, and back pain. Pt denies fever. - History of Current Complaint Chief Complaint: EDUrogenitalProblems Time Seen by Provider: 06/22/19 22:01 Stated Complaint: FALL/UTI PER PT Hx Obtained From: Patient Onset/Duration: Started Days Ago, Still Present Timing: Lasting Days Severity: Severe Current Severity: Severe Pain Intensity: 8 Location of Pain: RLQ Pain Radiates to: Flank Associated Signs and Symptoms: Positive: Back Pain, Hematuria, Dysuria Aggravating Factor(s): Urination Alleviating Factor(s): Nothing - Additional Pertinent History Primary Care Physician: BELINDA - Allergy/Home Medications Allergies/Adverse Reactions: Allergies Allergy/AdvReac Type Severity Reaction Status Date / Time metoclopramide Allergy Unknown Unknown Verified 06/22/19 21:53 Reaction Details Sulfa (Sulfonamide Allergy Unknown Hives Verified 06/22/19 21:53 Antibiotics) Penicillins AdvReac Unknown Altered Verified 06/22/19 21:53 Mental Status PMH/Surg Hx/FS Hx/Imm Hx Endocrine/Hematology History: Reports: Hx Diabetes Cardiovascular History: Reports: Hx Hypercholesterolemia, Hx Hypertension Respiratory History: Reports: Hx Chronic Obstructive Pulmonary Disease (COPD) Denies: Hx Asthma GI History: Reports: Hx Ulcer History: Denies: Hx Renal Disease Musculoskeletal History: Reports: Hx Arthritis, Hx Back Problems, Other Musculoskeletal History - sciatica Sensory History: Reports: Hx Contacts or Glasses - READING GLASSES Denies: Hx Legally Blind, Hx Deafness, Hx Hearing Aid Opthamlomology History: Reports: Hx Contacts or Glasses - READING GLASSES Denies: Hx Legally Blind Neurological History: Reports: Hx Migraine Psychiatric History: Reports: Hx Anxiety, Hx Depression - Cancer History Cancer Type, Location and Year: cervical - Surgical History Surgery Procedure, Year, and Place: cholecystectomy and right knee surgery - Immunization History Immunizations Up to Date: Yes Infectious Disease History: No Infectious Disease History: Denies: Traveled Outside the [place] in Last 30 Days - Family History Known Family History: Positive: Hypertension - Social History Lives: With Family Alcohol Use: None Substance Use Type: Reports: None Hx Tobacco Use: Yes Smoking Status (MU): Current Every Day Smoker Amount Used/How Often: anywhere from 2 cigarettes to a pack a day Review of Systems Negative: Fever Positive: Abdominal Pain Positive: dysuria, frequency, flank pain, hematuria Positive: Other - pos - right shoulder pain, right leg pain, back pain All Other Systems Reviewed And Are Negative: Yes Physical Exam - Summary Physical Exam Summary: Constitutional: Well-developed, Well-nourished, Alert. (-) Distressed Skin: Warm, Dry HENT: Normocephalic; Atraumatic Eyes: Conjunctiva normal Neck: Musculoskeletal ROM normal neck. (-) JVD, (-) Stridor, (-) Tracheal deviation Cardio: Rhythm regular, rate normal, Heart sounds normal; Intact distal pulses; The pedal pulses are 2+ and symmetric. Radial pulses are 2+ and symmetric. Pulmonary/Chest wall: Effort normal. (-) Respiratory distress, (-) Wheezes, (-) Rales Abd: Soft, (-) tenderness, (-) Distension, (-) Guarding, (-) Rebound Musculoskeletal: (-) Edema, No bony tenderness in right shoulder, full ROM, skin intact, no obvious signs of trauma Knee intact and no laxity, ROM intact, pulses, sensory and strength intact; Bilateral Paraspinal muscle spasm and tenderness to paraspinal muscles, no midline tenderness, no step off or deformities, Right sided CVA tenderness Neuro: Alert, Oriented x3 Psych: Mood and affect Normal Triage Information Reviewed: Yes Vital Signs On Initial Exam: Initial Vitals Temp Pulse Resp BP Pulse Ox 98.8 F 102 16 145/108 98 06/22/19 21:45 06/22/19 21:45 06/22/19 21:45 06/22/19 21:45 06/22/19 21:45 Vital Signs Reviewed: Yes Diagnostics - Vital Signs Vital Signs Temp Pulse Resp BP Pulse Ox 06/22/19 21:45 98.8 F 102 16 145/108 98 - Laboratory Result Diagrams: 06/22/19 22:32 06/22/19 22:32 Lab Statement: Any lab studies that have been ordered have been reviewed, and results considered in the medical decision making process. - Radiology CXR Radiology Interpretation Completed By: ED Physician Summary of Radiographic Findings: Shoulder X-Ray reveals per ED physician all results nml. Pending official radiology report. - CT Lumbar Spine CT CT Interpretation Completed By: Radiologist Summary of CT Findings: Lumbar Spine CT reveals per radiologist, IMPRESSION: 1. Increased lumbar lordosis with facet arthropathy from L4-S1. 2. Otherwise negative CT lumbar spine. No acute fracture or subluxation is. evident and no spinal or foraminal stenosis. ED physician has reviewed this report. Abdomen/Pelvis CT CT Interpretation Completed By: Radiologist Summary of CT Findings: Abdomen/Pelvis CT reveals, per radiologist IMPRESSION: 1. There has been prior cholecystectomy and hysterectomy. 2. Lower lumbar facet arthropathy and left sacroiliitis. 3. Otherwise negative CT abdomen/ pelvis. No renal or ureteral calculi are. evident and there is no evidence of obstructive uropathy. ED physician has reviewed this report. GIGU Course/Dx - Course Course Of Treatment: This patient is a 54 year old F presenting to [facility] with a chief complaint of dysuria since 06/18/19. Pt reports RLQ radiating to flank, hematuria dysuria, urgency, and frequency. Patient denies fever. Pt has a Hx of Kidney stones, kidney infection, degenerative disk disease. She usually passes the kidney stones on her own. She also reports she fell out of her truck in ED parking lot. Pt reports right shoulder pain, right leg pain, and back pain. Pt will be given CT of abdomen to evaluate for renal calculi, and lumbar spine for cult traumatic injury after falling in hospital parking lot. Lumbar Spine CT reveals per radiologist, IMPRESSION: 1. Increased lumbar lordosis with facet arthropathy from L4-S1. 2. Otherwise negative CT lumbar spine. No acute fracture or subluxation is. evident and no spinal or foraminal stenosis. Abdomen/Pelvis CT reveals, per radiologist IMPRESSION: 1. There has been prior cholecystectomy and hysterectomy. 2. Lower lumbar facet arthropathy and left sacroiliitis. 3. Otherwise negative CT abdomen/pelvis. No renal or ureteral calculi are. evident and there is no evidence of obstructive uropathy. Blood work obtained. UA obtained. Grossly positive for blood and white cells. Grossly positive for UTI. Pt will be treated as pyelonephritis for now due to flank pain. Will have to take Cephalexin 3 times a day for 10 days. Pt can follow up with PCP. Patient will be discharged with prescription for Cephalexin. The patient is agreeable with this plan. - Diagnoses Provider Diagnoses: UTI (urinary tract infection) Discharge - Sign-Out/Discharge Documenting (check all that apply): Patient Departure - Discharge Patient Received Moderate/Deep Sedation with Procedure: No - Discharge Plan Condition: Good Disposition: HOME Prescriptions: Cephalexin CAP* [Keflex CAP*] 500 mg PO TID 10 Days #30 tab Patient Education Materials: Kidney Infection (ED) Referrals: Armen Goodman MD [Primary Care Provider] - - Billing Disposition and Condition Condition: GOOD Disposition: Home - Attestation Statements Document Initiated by Antoinee: Yes Documenting Scribe: Rimma Willett Provider For Whom Scribe is Documenting (Include Credential): Dr. Pedrito Abel MD Scribe Attestation: Rimma Car scribed for Dr. Pedrito Abel MD on 06/23/19 at 0610. Scribe Documentation Reviewed: Yes Provider Attestation: The documentation as recorded by the Rimma phan accurately reflects the service I personally performed and the decisions made by , Dr. Pedrito Abel MD Status of Scribe Document: Viewed
[2019-06-22 22:32] LABS: Urine Appearance Cloudy; Urine Bacteria Absent (Absent); Urine Bilirubin Negative (Negative); Urine Blood 3+ (Negative); Urine Color Straw; Urine Glucose 3+(>=500 mg/dL) (Negative); Urine Ketones Negative (Negative); Urine Nitrite Negative (Negative); Urine Protein Negative (Negative); Urine Red Blood Cell 3+(>10/hpf) (Absent); Urine Specific Gravity 1.028 (1.010-1.030); Urine Urobilinogen Negative (Negative); Urine White Blood Cell 3+(>20/hpf) (Absent)
[2019-06-22 22:38] LABS: ABS Basophils 0.1 10^3/ul (0-0.2); ABS Eosinophils 0.1 10^3/ul (0-0.6); ABS Lymphocytes 2.1 10^3/ul (1.0-4.8); ABS Monocytes 0.3 10^3/ul (0-0.8); ABS Neutrophils 4.9 10^3/ul (1.5-7.7); Eosinophil % 1.3 %; Hematocrit 41 % (35-47); Hemoglobin 13.9 g/dL (12.0-16.0); Lymphocyte % 28.5 %; Mean Corpuscular HGB Conc 34 g/dL (31-36); Mean Corpuscular Hemoglobin 30 pg (27-31); Mean Corpuscular Volume 87 fL (80-97); Mean Platelet Volume 9.3 fL (7.4-10.4); Platelet Count 177 10^3/uL (150-450); Red Blood Count 4.67 10^6 /uL (3.70-4.87); Red Cell Distribution Width 13 % (10-15); White Blood Count 7.5 10^3/uL (3.5-10.8)
[2019-06-22 22:56] LABS: BUN/Creatinine Ratio 19.4 (8-20); Calcium 9.2 mg/dL (8.6-10.3); EGFR African American 101.4 (>60); EGFR Non-African American 83.8 (>60); Potassium 4.2 mmol/L (3.5-5.0)
[2019-06-22] MEDS ORDERED: Lactated Ringers 1000 ML Bag* 1,000 ML IV SCH (23:00)
[2019-06-22] MEDS ORDERED: Lactated Ringers 1000 ML Bag* 1,000 ML IV ONE (23:05)
[2019-06-23] MEDS ORDERED: ED cefTRIAXone 1 GM/50 ML 1 GM/50 ML PREMIX.SET IVPB ONE (00:40)
[2019-06-23] MEDS ORDERED: cefTRIAXone(*) 1 GM in NS 0.9% 50 ML* 50 ML IVPB ONE (01:00)
[2019-06-23] MEDS ORDERED: oxyCODONE/Acetamin 5/325 MG* TAB PO ONE (01:43)
[2019-06-23 02:28] VITALS: BP 145/90
== END 2019-06-23 00:54 | disposition home or self-care (01) ==
LOC: ED 21:33
DX: N39.0 Urinary tract infection, site not specified (principal); E11.9 Type 2 diabetes mellitus without complications; E78.00 Pure hypercholesterolemia, unspecified; I10 Essential (primary) hypertension; J44.9 Chronic obstructive pulmonary disease, unspecified; F17.210 Nicotine dependence, cigarettes, uncomplicated; Z88.0 Allergy status to penicillin; Z88.2 Allergy status to sulfonamides; Z88.8 Allergy status to other drugs, medicaments and biological substances; Z90.49 Acquired absence of other specified parts of digestive tract; Z90.710 Acquired absence of both cervix and uterus; M46.1 Sacroiliitis, not elsewhere classified; M12.9 Arthropathy, unspecified
CPT/HCPCS: 36415; 72131; 74176; 80048; 81003; 81015; 85025; 87077; 87086; 87186; 96361; 96365; 96375; 99284; A9270-GY; J0696; J1885

== ENCOUNTER 2019-10-07 15:32 | Inpatient (IN) | payer OTHER ==
--- OUTSIDE RECORDS SUMMARY | 2019-10-07 15:43 | XMS REPORT | Continuity of Care Document ---
:1965 External Reference #:[id number] Author Name Armen Goodman MD (transmitted by agent of provider Eliza Morocho) Address [address] [place] [id number] Care Team Providers Name Role Phone Armen Goodman MD - Hospitalist Care Team Information Landscape Management Technician [phone] Problems Active Problems Provider Date Type II diabetes mellitus uncontrolled Armen Goodman MD Onset: 09/13/2018 Essential hypertension Armen Goodman MD Onset: 09/13/2018 Hyperlipidemia Armen Goodman MD Onset: 09/13/2018 Opioid dependence, uncomplicated Armen Goodman MD Onset: 09/13/2018 Dyspnea Armen Goodman MD Onset: 09/13/2018 Edema Armen Goodman MD Onset: 09/13/2018 Tobacco user Armen Goodman MD Onset: 09/13/2018 Recurrent major depressive episodes Armen Goodman MD Onset: 09/13/2018 Generalized anxiety disorder Armen Goodman MD Onset: 10/10/2018 Gastroparesis syndrome Armen Goodman MD Onset: 10/10/2018 Gastroduodenitis Armen Goodman MD Onset: 10/10/2018 Tachycardia Armen Goodman MD Onset: 12/12/2018 Right upper quadrant pain Armen Goodman MD Onset: 12/12/2018 Type 2 diabetes mellitus Armen Goodman MD Onset: 12/12/2018 Long-term current use of insulin Armen Goodman MD Onset: 12/12/2018 Pneumonia Armen Goodman MD Onset: 12/12/2018 Coordination problem Armen Goodman MD Onset: 12/12/2018 Metabolic encephalopathy Armen Goodman MD Onset: 12/12/2018 Constipation Armen Goodman MD Onset: 12/12/2018 Elevated levels of transaminase & lactic acid Armen Goodman MD Onset: 02/22/2019 dehydrogenase Acute cor pulmonale Armen Goodman MD Onset: 02/22/2019 Sensorineural hearing loss, bilateral Armen Goodman MD Onset: 08/28/2019 Social History Type Date Description Comments Sex Unknown Cigarette Use Pack Years - 20 ETOH Use Never used alcohol Tobacco Use Start: Unknown Light tobacco smoker (10 or fewer cigarettes/day) Recreational Drug Use Denies Drug Use Tobacco Use Start: Unknown Patient is a current smoker, smokes every day Smoking Status Reviewed: 08/28/19 Patient is a current smoker, smokes every day Exercise Type/Frequency Does not exercise Allergies, Adverse Reactions, Alerts Active Allergies Reaction Severity Comments Date Sulfa Antibiotics 09/13/2018 Penicillin 09/13/2018 Reglan 09/13/2018 Medications Active Medications SIG Qnty Indications Ordering Date Provider Nicotrol use every 2 hours 168units F17.210 Armen Goodman MD 08/28/2019 10mg Inhaler as needed for nicotine cravings. Quetiapine Fumarate Take 1 Tablet By 30tabs Armen Goodman MD 07/24/2019 25mg Mouth AT Bedtime Tablets Gabapentin take 2 capsules 180caps Armen Goodman MD 06/23/2019 300mg Capsules by mouth three times daily Alcohol Prep use daily as 2000units Dian 03/16/2019 Pads directed Aylin, DO Cyclobenzaprine HCL Take 1 Tablet By 90tabs Armen Goodman MD 12/12/2018 5mg Mouth Three Times Tablets Daily as Needed Senna-Docusate Sodium take 1 tablet 30tabs K59.00 Dian 12/12/2018 daily Senner, DO 8.6-50mg Tablets Nicotine Transdermal 1 patch daily 28units Dian 12/12/2018 System Step 1 Senner, DO 21mg/24HR Patches 24HR Butalbital/Acetaminoph 1 by mouth twice 14tabs Armen Goodman MD 09/22/2018 en/Caffeine a day as needed 50-325-40mg headache max 2 Tablets days/wk Insulin for use with 100units E11.65 Dian 09/13/2018 Syringe/0.5ML/30G X admelog three Senner, DO 1/2" times a day with 30G X 1/2" 0.5 ML meals Misc Admelog 10u three times a 30ml E11.65 [facility] 09/13/2018 100Unit/ML day with each Senner, DO Solution meal Basaglar Kwikpen inject 50u twice 15ml E11.65 [facility] 09/13/2018 a day. . Senner, DO 100Unit/ML Solution Pen-Inject Lancets for use with your 100units E11.65 [facility] 09/13/2018 30G Misc glucometer Senner, DO Freestyle Test for blood glucose 100units E11.65 [facility] 09/13/2018 Strips monitoring at [facility], DO least 3 times a day. Freestyle System For blood glucose 1units E11.65 Armen Goodman MD 09/13/2018 Kit monitoring. Norvasc 1 by mouth every 30tabs Dian 10mg Tablets day , DO Lipitor one tab by mouth 30tabs Dian 20mg Tablets every night at [facility], DO bedtime Urecholine 4 times per day Unknown 25mg Tablets Prozac 1 by mouth every 30caps Dian 40mg Capsules day , DO Lisinopril 1 by mouth every 30tabs Dian 40mg Tablets day ner, DO Miralax 17 grams by mouth Unknown Powder every day as needed Topiramate 1 tab twice a day 60tabs Dian 50mg Tablets Senner, DO Buprenorphine 2.5 tabs a day as Unknown HCL-Naloxone HCL needed 8-2mg Tablets Sub Promethazine HCL Take 1 Tablet By 90tabs Armen Goodman MD 25mg Mouth Every 8 Tablets Hours as Needed For Nausea With Headache Eliquis 1 by mouth twice 60tabs Armen Goodman MD 5mg Tablets a day Protonix 1 by mouth every Unknown 40mg Tablets DR day Immunizations Description No Information Available Vital Signs Date Vital Result Comment 08/28/2019 1:34pm Height 61 inches 5'1" Weight 142.00 lb Heart Rate 120 /min BP Systolic 140 mmHg BP Diastolic 78 mmHg Body Temperature 97.6 F O2 % BldC Oximetry 97 % BMI (Body Mass Index) 26.8 kg/m2 02/22/2019 1:40pm Weight 140.00 lb Heart Rate 96 /min BP Systolic 138 mmHg BP Diastolic 78 mmHg Respiratory Rate 16 /min Body Temperature 98.5 F Pain Level 4 ribs O2 % BldC Oximetry 97 % Results Test Date Facility Test Result H/L Range Note CBC Auto 06/22/2019 [facility] White Blood 7.5 10^3/uL Normal 3.5-10.[address] [place] [address] [phone] Red Blood Count 4.67 10^6/uL Normal 3.70-4.87 Hemoglobin 13.9 g/dL Normal 12.0-16.0 Hematocrit 41 % Normal 35-47 Mean Corpuscular Volume 87 fL Normal 80-97 Mean Corpuscular Hemoglobin 30 pg Normal 27-31 Mean Corpuscular HGB Conc 34 g/dL Normal 31-36 Red Cell Distribution Width 13 % Normal 10-15 Platelet Count 177 10^3/uL Normal 150-450 Mean Platelet Volume 9.3 fL Normal 7.4-10.4 Abs Neutrophils 4.9 10^3/uL Normal 1.5-7.7 Abs Lymphocytes 2.1 10^3/uL Normal 1.0-4.8 Abs Monocytes 0.3 10^3/uL Normal 0-0.8 Abs Eosinophils 0.1 10^3/uL Normal 0-0.6 Abs Basophils 0.1 10^3/uL Normal 0-0.2 Abs Nucleated RBC 0.0 10^3/uL Granulocyte % 65.9 % Lymphocyte % 28.5 % Monocyte % 3.5 % Eosinophil % 1.3 % Basophil % 0.8 % Nucleated Red Blood Cells % 0.0 Basic Metabolic 06/22/2019 [facility] Sodium 136 mmol/L Normal 135-[address] [place] [address] [phone] Potassium 4.2 mmol/L Normal 3.5-5.0 Chloride 104 mmol/L Normal 101-111 Co2 Carbon Dioxide 26 mmol/L Normal 22-32 Anion Gap 6 mmol/L Normal 2-11 Glucose 342 mg/dL High 70-100 Blood Urea Nitrogen 14 mg/dL Normal 6-24 Creatinine 0.72 mg/dL Normal 0.51-0.95 BUN/Creatinine Ratio 19.4 Normal 8-20 Calcium 9.2 mg/dL Normal 8.6-10.3 Egfr Non- 83.8 >60 Egfr 101.4 >60 1 Urinalysis Profile 06/22/2019 [facility] Urine Color Straw [address] [place] [address] [phone] Urine Appearance Cloudy Urine Specific [place] 1.028 Normal 1.010-1.030 Urine pH 7.0 Normal 5-9 Urine Urobilinogen Negative Negative Urine Ketones Negative Negative Urine Protein Negative Negative Urine Leukocytes 3+ Abnormal Negative Urine Blood 3+ Abnormal Negative Urine Nitrite Negative Negative Urine Bilirubin Negative Negative Urine Glucose 3+(>=500 mg/dL) Abnormal Negative Urine White Blood Cell 3+(>20/hpf) Abnormal Absent Urine Red Blood Cell 3+(>10/hpf) Abnormal Absent Urine Bacteria Absent Absent Urine Culture 06/22/2019 [facility] Urine SEE RESULT [address] [place] [address] [phone] Laboratory test 02/28/2019 [facility] Point of 131 mg/dL High 70-[address] [place] [address] [phone] Laboratory test 02/28/2019 [facility] Lactic Acid 1.9 mmol/L Normal 0.5-2.0 [address] [place] [address] [phone] Rapid Influenza 02/27/2019 [facility] Influenza A NEGATIVE Negative 5 A & B Molecular [address] [place] [address] [phone] Influenza B Molecular NEGATIVE Negative Laboratory test 02/27/2019 [facility] Rapid SEE RESULT [address] [place] [address] Antigen [phone] Laboratory test 02/27/2019 [facility] TSH (Thyroid 4.78 Normal 0.34- finding [address] Stim Horm) mcIU/mL 5.60 [place] [address] [phone] Free T4 (Free Thyroxine) 0.73 ng/dL Normal 0.61-1.12 CBC Auto 02/27/2019 [facility] White Blood 7.2 10^3/uL Normal 3.5-10.[address] [place] [address] [phone] Red Blood Count 4.93 10^6/uL High 3.70-4.87 Hemoglobin 13.8 g/dL Normal 12.0-16.0 Hematocrit 41 % Normal 33-41 Mean Corpuscular Volume 84 fL Normal 80-97 Mean Corpuscular Hemoglobin 28 pg Normal 27-31 Mean Corpuscular HGB Conc 33 g/dL Normal 31-36 Red Cell Distribution Width 14 % Normal 10.5-15 Platelet Count 231 10^3/uL Normal 150-450 Mean Platelet Volume 9.2 fL Normal 7.4-10.4 Abs Neutrophils 4.9 10^3/uL Normal 1.5-7.7 Abs Lymphocytes 1.8 10^3/uL Normal 1.0-4.8 Abs Monocytes 0.4 10^3/uL Normal 0-0.8 Abs Eosinophils 0.1 10^3/uL Normal 0-0.6 Abs Basophils 0.1 10^3/uL Normal 0-0.2 Abs Nucleated RBC 0 10^3/uL Granulocyte % 67.6 % Lymphocyte % 24.6 % Monocyte % 5.6 % Eosinophil % 1.2 % Basophil % 1.0 % Nucleated Red Blood Cells % 0.1 Inr/Protime 02/27/2019 [facility] Inr 0.99 Normal 0.77-1.[address] [place] [address] [phone] Laboratory test 02/27/2019 [facility] Partial 30.3 Normal 26.0 -36.3 finding 101 [facility] [place] [place] [address] Time PTT [phone] B-Type Natriuretic Peptide BNP 24 pg/mL <=100 Comp Metabolic Panel 02/27/2019 [facility] Sodium 133 mmol/L Low 135-[address] [place] [address] [phone] Potassium 4.1 mmol/L Normal 3.5-5.0 Chloride 100 mmol/L Low 101-111 Co2 Carbon Dioxide 23 mmol/L Normal 22-32 Anion Gap 10 mmol/L Normal 2-11 Glucose 434 mg/dL High 70-100 Blood Urea Nitrogen 16 mg/dL Normal 6-24 Creatinine 0.71 mg/dL Normal 0.51-0.95 BUN/Creatinine Ratio 22.5 High 8-20 Calcium 9.6 mg/dL Normal 8.6-10.3 Total Protein 7.5 g/dL Normal 6.4-8.9 Albumin 4.2 g/dL Normal 3.2-5.2 Globulin 3.3 g/dL Normal 2-4 Albumin/Globulin Ratio 1.3 Normal 1-3 Total Bilirubin 0.30 mg/dL Normal 0.2-1.0 Alkaline Phosphatase 129 U/L High 34-104 Alt 55 U/L High 7-52 Ast 37 U/L Normal 13-39 Egfr Non- 85.5 >60 Egfr 103.4 >60 7 Laboratory test 02/27/2019 [facility] Troponin-I (TnI) 0.00 ng/ mL <0.04 [address] [place] [address] [phone] Lactic Acid 2.3 mmol/L Critical high 0.5-2.0 9 1 Because ethnic data is not always [...] 5 Kidney failure <15 (or dialysis) 2 SEE RESULT BELOW Name: EVIE BOSTON : [address]: Pedrito Abel MD Acct: [id number] Unit: [id number] AGE: 54 Location: ED Re06/22/19 SEX: F Status: REG ER SPEC: [id number] UZAIR: 06/22/[address]: Pedrito Abel MD REQ: [id number] RECD: 06/22/19 STATUS: LYNNE ROGER DR: Armen Goodman MD _ SOURCE: [facility]: ORDERED: Urine Culture Procedure Result Reported Site Urine Culture Final 06/25/19- 923 ML Organism 1 ESCHERICHIA COLI [place] Count >100,000 (Many) CFU/ML 1. ESCHERICHIA COLI M.I.C. RX --------- ------ Ampicillin <=2 S Cefazolin <=4 S Cefepime <=1 S Ceftriaxone <=1 S Ciprofloxacin <=0.25 S Gentamicin <=1 S Levofloxacin <=0.12 S Meropenem <=0.25 S Nitrofurantoin <=16 S Tetracycline <=1 S Pipercillin/Tazobactam <=4 S Trimethoprim/Sulfamethoxazole <=20 S Amoxicillin/Clavulanic Acid <=2 S Aztreonam <=1 S Contact the Microbiology Department for any additional antibiotic reporting. * ML - Main Lab . END OF REPORT DEPARTMENT OF PATHOLOGY, [address] [place] [address] Hu Koch M.D. Director [facility] # [id number] 3 Manufacturing Support Engineer: [id number] 4 [facility] Severe Sepsis and Septic Shock Management Bundle Measure requires all lactic acids initially measuring >2.0 mmol/L be repeated. 5 Manufacturing Support Engineer: [id number] 6 SEE RESULT BELOW Name: EVIE BOSTON : [address]: Goyo Allen MD Acct: [id number] Unit: [id number] AGE: 53 Location: ED Re02/27/19 SEX: F Status: REG ER SPEC: [id number] UZAIR: 02/27/19-SYLVIAK SUBM DR: Drake Woods MD REQ: [id number] RECD: 02/27/19 STATUS: LYNNE ROGER DR: Armen Goodman MD _ SOURCE: NASAL SPDESC: ORDERED: Flu A B Request Procedure Result Reported Site Rapid Influenza A B Request Final 02/27/192222 ML Specimen received for Influenza A/B Molecular testing * ML - Main Lab . END OF REPORT DEPARTMENT OF PATHOLOGY, [address] [place] [address] Hu Koch M.D. Director [facility] # [id number] 7 Because ethnic data is not always [...] 5 Kidney failure <15 (or dialysis) 8 Troponin-I testing on Plasma Separator Tubes (PST) has a known false positive rate of 0.20-0.40%. All positive troponins reflex immediate secondary confirmatory testing. 9 Critical Result LACT:2.3 Called to DEACON at: 21:48:18 by:[id number] Read back by:DEACON LEUNG Severe Sepsis and Septic Shock Management Bundle Measure requires all lactic acids initially measuring >2.0 mmol/L be repeated. Procedures Date Code Description Status 02/21/2018 05548227 Colonoscopy Completed Medical Devices Description No Information Available Encounters Description No Information Available Assessments Date Code Description Provider 08/28/2019 R41.3 Other amnesia Armen Goodman MD 08/28/2019 I26.09 Other pulmonary embolism with acute cor pulmonale Armen Goodman MD 08/28/2019 E11.9 Type 2 diabetes mellitus without complications Armen Goodman MD 08/28/2019 F17.210 Nicotine dependence, cigarettes, uncomplicated Armen Goodman MD 08/28/2019 F33.9 Major depressive disorder, recurrent, unspecified Armen Goodman MD 08/28/2019 H90.3 Sensorineural hearing loss, bilateral Armen Goodman MD 08/28/2019 I10 Essential (primary) hypertension Armen Goodman MD Plan of Treatment Future Appointment(s):11/06/2019 8:20 am - Armen Goodman MD at [facility] Internal Medicine - [address]/28/2019 - Armen Goodman MDR41.3 Other amnesiaNew Xrays:MRI Brain W/O, Ordered: 08/28/19I26.09 Other pulmonary embolism with acute cor pulmonaleNew Labs:D Dimer Quantitative, Ordered: 08/28/19Referral:Robert Sandhu MD, Hematology/Phys/VwoetN34.9 Type 2 diabetes mellitus without complicationsNew Labs:Hemoglobin A1c (Glyco HGB), Ordered: 08/28/19Comments: Please establish back with Dr. Diallo Please start to add a sliding scale to your meal time Admelog:[phone] total 10Uif 200-250 total 12Uif 251-300 total 14Uif 301-350 total 16Uif 351-400 total 18Uif above 400 total 20U and call the doctor' s office. Potatoes, pasta, breads are all very high in carbohydrates and most be eaten very sparingly if at all. We will recheck you [id number] with you eye doctor. Please follow the plate method we discussed today.Follow up:2 cytbroJ04.210 Nicotine dependence, cigarettes, uncomplicatedNew Medication: Nicotrol 10 mg - use every 2 hours as needed for nicotine cravings.F33.9 Major depressive disorder, recurrent, unspecifiedComments:establish with OqkxfdoveokiB36.3 Sensorineural hearing loss, bilateralReferral:So Nolen AU.D, [id number] Essential (primary) hypertensionComments:Continue the Norvasc and Lisinopril Functional Status Description No Information Available Mental Status Description No Information Available Referrals Refer to Reason for Referral Status Appt Date So Nolen AU.D b/l hearing loss Created [address] [place] [address] [phone] Robert Sandhu MD hypercoag work up, unprovoked PE January [address] [place] [address] [phone]
[2019-10-07] MEDS ORDERED: Morphine 4 MG/ML VIAL (1 ml) 4 MG/ML VIAL IV ONE (16:16)
[2019-10-07] MEDS ORDERED: Ondansetron INJ* 2 MG/ML VIAL IV ONE (16:16)
[2019-10-07] MEDS ORDERED: NS 0.9% 1000 ML** 1,000 ML IV ONE ×2 (16:16→17:01)
--- NOTE | 2019-10-07 16:19 | ED ---
Abdominal Pain/Female - HPI Summary HPI Summary: Patient is a 44-year-old female who presents emergency department for left- sided abdominal pain and nausea 3 days. Patient has a past medical history of diabetes, diverticulitis, nephrolithiasis, pancreatitis, PE. Pt. denies CP, SOB , fever, cough, urinary sxs. Pain is constant and sharp in nature and constant. Pt. notes she has not been able to drink fluids the last few days secondary to nausea. Sxs are moderate in severity. No current modifying factors. - History of Current Complaint Chief Complaint: EDFlankPain Stated Complaint: LT FLANK PAIN/NAUSEA PER PT Time Seen by Provider: 10/07/19 15:59 Hx Obtained From: Patient Pain Intensity: 7 Allergies/Adverse Reactions: Allergies Allergy/AdvReac Type Severity Reaction Status Date / Time metoclopramide Allergy Unknown Unknown Verified 10/07/19 15:38 Reaction Details Sulfa (Sulfonamide Allergy Unknown Hives Verified 10/07/19 15:38 Antibiotics) Penicillins AdvReac Unknown Altered Verified 10/07/19 15:38 Mental Status PMH/Surg Hx/FS Hx/Imm Hx Previously Healthy: Yes Endocrine/Hematology History: Reports: Hx Diabetes Cardiovascular History: Reports: Hx Hypercholesterolemia, Hx Hypertension Respiratory History: Reports: Hx Chronic Obstructive Pulmonary Disease (COPD) Denies: Hx Asthma GI History: Reports: Hx Ulcer History: Denies: Hx Renal Disease Musculoskeletal History: Reports: Hx Arthritis, Hx Back Problems, Other Musculoskeletal History - sciatica Sensory History: Reports: Hx Contacts or Glasses - READING GLASSES Denies: Hx Legally Blind, Hx Deafness, Hx Hearing Aid Opthamlomology History: Reports: Hx Contacts or Glasses - READING GLASSES Denies: Hx Legally Blind Neurological History: Reports: Hx Migraine Psychiatric History: Reports: Hx Anxiety, Hx Depression - Cancer History Cancer Type, Location and Year: cervical - Surgical History Surgery Procedure, Year, and Place: cholecystectomy and right knee surgery Infectious Disease History: No Infectious Disease History: Denies: Traveled Outside the [place] in Last 30 Days - Family History Known Family History: Positive: Hypertension - Social History Occupation: Unemployed Lives: With Family Alcohol Use: None Substance Use Type: Reports: None Hx Tobacco Use: Yes Smoking Status (MU): Current Every Day Smoker Amount Used/How Often: anywhere from 2 cigarettes to a pack a day Review of Systems Constitutional: Negative Negative: Fever Cardiovascular: Negative Negative: Palpitations, Chest Pain Respiratory: Negative Negative: Shortness Of Breath, Cough Positive: Abdominal Pain, Diarrhea, Nausea. Negative: Vomiting Genitourinary: Negative Skin: Negative Neurological: Negative All Other Systems Reviewed And Are Negative: Yes Physical Exam Vital Signs On Initial Exam: Initial Vitals Temp Pulse Resp BP Pulse Ox 99.0 F 123 16 154/96 98 10/07/19 15:35 10/07/19 15:35 10/07/19 15:35 10/07/19 15:35 10/07/19 15:35 Procedures - Sedation Patient Received Moderate/Deep Sedation with Procedure: No Diagnostics - Vital Signs Vital Signs Temp Pulse Resp BP Pulse Ox 10/07/19 15:35 99.0 F 123 16 154/96 98 - Laboratory Result Diagrams: 10/08/19 06:47 10/07/19 16:30 Lab Statement: Any lab studies that have been ordered have been reviewed, and results considered in the medical decision making process. Re-Evaluation - Re-Evaluation First Eval Re-Evaluation Time: 18:02 Change: Improved Comment: Reviewed CT findings. Pt stats nausea is much better, but pain is still bothersome. Asking for something more than morphine. Second Eval Re-Evaluation Time: 20:26 Change: Unchanged Comment: Discussed admission and she is agreeable to this. Asking for more pain medication Abdominal Pain Fem Course/Dx - Course Course Of Treatment: Pt. with left sided abd. pain. Afebrile. HR elevated. Pt. started on IV fluids and pain medication. ECG done at 1629 shows a sinus rhythm of 99bpm, normal axis, no ST elevation or depression. CBC unremarkable. Glucose 413, lactic acid 2.6, troponin 0.05. 2nd liter of IV fluids ordered. Pt. will be signed out to Orion Juarez pending repeat labs, CT results and disposition. - Diagnoses Differential Diagnosis: Positive: Appendicitis, Bowel Obstruction, Constipation , Diverticulitis, Pancreatitis, Renal Colic, Urinary Tract Infection Provider Diagnoses: Colitis Discharge ED - Sign-Out/Discharge Documenting (check all that apply): Sign-Out Patient Signing out patient TO: Robert Juarez - Discharge Plan Condition: Stable Disposition: ADMITTED TO [facility] - Billing Disposition and Condition Condition: STABLE Disposition: Admitted to [facility] - Attestation Statements Provider Attestation: I was available for consultation for this patient. I did not evaluate the patient or participate in any medical decision making or disposition decisions unless I am specifically named in the chart as having consulted on the patient. If I have consulted on the patient, please see my own ED note on the patient encounter. Krishna Plasencia MD Addendum entered and electronically signed by Hussein Ch PA 10/08/19 06:44: ED Addendum Addendum: PE: Appearance: Pt. lying in bed. Appears to feel unwell but nontoxic Skin: Warm and dry Head: Normocephalic ENT: PERR. Oral mucosa dry. Heart: RRR Lungs: CTA Abd. Obese. Diffuse tenderness to LUQ and LLQ with guarding Neuro: CN 2-12 grossly intact Psych: Affect appropriate.
[2019-10-07 16:38] LABS: ABS Basophils 0.1 10^3/ul (0-0.2); ABS Eosinophils 0.1 10^3/ul (0-0.6); ABS Lymphocytes 1.6 10^3/ul (1.0-4.8); ABS Monocytes 0.3 10^3/ul (0-0.8); ABS Neutrophils 3.8 10^3/ul (1.5-7.7); Eosinophil % 0.9 %; Hematocrit 44 % (35-47); Hemoglobin 14.5 g/dL (12.0-16.0); Lymphocyte % 27.5 %; Mean Corpuscular HGB Conc 33 g/dL (31-36); Mean Corpuscular Hemoglobin 29 pg (27-31); Mean Corpuscular Volume 88 fL (80-97); Mean Platelet Volume 9.2 fL (7.4-10.4); Nucleated Red Blood Cells % 0.2; Platelet Count 200 10^3/uL (150-450); Red Blood Count 4.99 10^6 /uL (3.70-4.87); Red Cell Distribution Width 14 % (10-15); White Blood Count 5.8 10^3/uL (3.5-10.8)
[2019-10-07 16:59] LABS: Albumin/Globulin Ratio 1.2 (1-3); C Reactive Protein 17.89 mg/L (<8.01); Calcium 9.4 mg/dL (8.6-10.3); EGFR African American 98.2 (>60); EGFR Non-African American 81.2 (>60); Globulin 3.4 g/dL (2-4); Potassium 4.2 mmol/L (3.5-5.0); Total Bilirubin 0.3 mg/dL (0.2-1.0); Total Protein 7.4 g/dL (6.4-8.9); Troponin I 0.05 ng/mL (<0.04)
[2019-10-07] MEDS ORDERED: Iodixanol* (CONTRAST) 320 MG/ML 100 ML SDV IV ONE (17:16)
--- NOTE | 2019-10-07 17:25 | UC ---
- Progress Note Progress Note: Receiving sign out from Hussein CUELLAR. 44 yo female presents with left lower abdominal pain. She tells me that the pain has been present about 3 days and she has associated nausea. She has a history of diverticulitis, but is unsure if this feels the same. She describes the pain as constant and sharp. Over the last 24 hours has had difficulty drinking fluids due to nausea. Patient has a past medical history of diabetes, diverticulitis, nephrolithiasis, pancreatitis, PE. Pt. denies CP, SOB, fever, cough, urinary sxs. - Results/Orders Results/Orders: Laboratory Tests 10/07/19 10/07/19 10/07/19 16:30 16:30 16:30 WBC 5.8 RBC 4.99 H Hgb 14.5 Hct 44 MCV 88 MCH 29 MCHC 33 RDW 14 Plt Count 200 MPV 9.2 Neut % (Auto) 64.9 Lymph % (Auto) 27.5 [place] % (Auto) 5.6 Eos % (Auto) 0.9 Baso % (Auto) 1.1 Absolute Neuts (auto) 3.8 Absolute Lymphs (auto) 1.6 Absolute Monos (auto) 0.3 Absolute Eos (auto) 0.1 Absolute Basos (auto) 0.1 Absolute Nucleated RBC 0.0 Nucleated RBC % 0.2 Sodium 134 L Potassium 4.2 Chloride 104 Carbon Dioxide 20 L Anion Gap 10 BUN 17 Creatinine 0.74 Est GFR ( Amer) 98.2 Est GFR (Non-Af Amer) 81.2 BUN/Creatinine Ratio 23.0 H Glucose 413 H Lactic Acid 2.6 H* Calcium 9.4 Total Bilirubin 0.30 AST 12 L ALT 15 Alkaline Phosphatase 118 H Troponin I 0.05 H* C-Reactive Protein 17.89 H Total Protein 7.4 Albumin 4.0 Globulin 3.4 Albumin/Globulin Ratio 1.2 Lipase 60 Urine Color Urine Appearance Urine pH Ur Specific [place] Urine Protein Urine Ketones Urine Blood Urine Nitrate Urine Bilirubin Urine Urobilinogen Ur Leukocyte Esterase Urine Glucose 10/07/19 10/07/19 10/07/19 17:19 19:22 19:22 WBC RBC Hgb Hct MCV MCH MCHC RDW Plt Count MPV Neut % (Auto) Lymph % (Auto) [place] % (Auto) Eos % (Auto) Baso % (Auto) Absolute Neuts (auto) Absolute Lymphs (auto) Absolute Monos (auto) Absolute Eos (auto) Absolute Basos (auto) Absolute Nucleated RBC Nucleated RBC % Sodium Potassium Chloride Carbon Dioxide Anion Gap BUN Creatinine Est GFR ( Amer) Est GFR (Non-Af Amer) BUN/Creatinine Ratio Glucose Lactic Acid 1.5 Calcium Total Bilirubin AST ALT Alkaline Phosphatase Troponin I 0.06 H* C-Reactive Protein Total Protein Albumin Globulin Albumin/Globulin Ratio Lipase Urine Color Straw Urine Appearance Clear Urine pH 5.0 Ur Specific [place] 1.035 H Urine Protein Negative Urine Ketones Negative Urine Blood Negative Urine Nitrate Negative Urine Bilirubin Negative Urine Urobilinogen Negative Ur Leukocyte Esterase Negative Urine Glucose 3+(>=500 mg/dl) A Re-Evaluation - Re-Evaluation First Eval Re-Evaluation Time: 18:02 Change: Improved Comment: Reviewed CT findings. Pt stats nausea is much better, but pain is still bothersome. Asking for something more than morphine. Second Eval Re-Evaluation Time: 20:26 Change: Unchanged Comment: Discussed admission and she is agreeable to this. Asking for more pain medication Course/Dx - Course Course Of Treatment: CT ab/pelv with: FINDINGS: LUNG BASES: The lung bases are clear. LIVER: The liver is diffusely low in attenuation compared to the spleen. There are no focal hepatic parenchymal masses. BILE DUCTS: There is no intrahepatic or extrahepatic biliary dilatation. GALLBLADDER: The gallbladder is not visualized. Surgical clips are noted in the gallbladder fossa. PANCREAS: The pancreas is normal, without mass or ductal dilatation. SPLEEN: Normal in size and appearance. UPPER GI TRACT: Evaluation of the gastrointestinal tract is limited by incomplete gastric distention. The upper GI tract is unremarkable. SMALL BOWEL AND MESENTERY: The small bowel is normal in contour, course, and caliber. There is no obstruction or dilatation. COLON: There is mild diffuse mucosal thickening of the distal colon which is relatively featureless suggestive of colitis. There is no pericolonic inflammatory change. ADRENALS: Normal bilaterally. KIDNEYS: The kidneys are normal in shape, size, contour, and axis. There is no hydronephrosis or nephrolithiasis. BLADDER: The bladder is smooth in contour. PELVIC ORGANS: The pelvic organs are not visualized. AORTA : The aorta is normal. IVC: Unremarkable LYMPH NODES: There is no lymphadenopathy by size criteria. ABDOMINAL WALL: There is no evidence for abdominal wall hernia. BONES AND SOFT TISSUES: There is mild facet osteoarthritis along the lower lumbar spine. OTHER: None IMPRESSION: THERE IS MILD DIFFUSE MUCOSAL THICKENING OF THE DISTAL COLON SUGGESTIVE OF COLITIS IN THE CORRECT CLINICAL SETTING. FATTY INFILTRATION OF THE LIVER. Will treat as diverticulitis with Zosyn. Pt has "allergy" to PCN. She tells me that she once had a PCN injection and passed out during the injection, but she has taken cephalosporins and amoxicillin/augmentin po without issue in the past. Lactic acid improved from 2.6 to 1.5. Trop increased from 0.05 to 0.06. Discussed case with Dr. Su and she recommends observation. Discussed with pt and she is agreeable to this. Still requesting more pain medication and still feels nauseous. Discussed case with Dr. Ramirez hospitalist and he accepts pt for admission. - Diagnoses Provider Diagnoses: Colitis Discharge ED - Sign-Out/Discharge Documenting (check all that apply): Receiving Sign-Out Receiving patient FROM: Hussein Ch - Discharge Plan Condition: Stable Disposition: ADMITTED TO [facility] Referrals: Armen Goodman MD [Primary Care Provider] - - Billing Disposition and Condition Condition: STABLE Disposition: Admitted to [facility]
[2019-10-07 17:29] LABS: Urine Appearance Clear; Urine Bilirubin Negative (Negative); Urine Blood Negative (Negative); Urine Color Straw; Urine Glucose 3+(>=500 mg/dL) (Negative); Urine Ketones Negative (Negative); Urine Nitrite Negative (Negative); Urine Protein Negative (Negative); Urine Specific Gravity 1.035 (1.010-1.030); Urine Urobilinogen Negative (Negative)
[2019-10-07] MEDS ORDERED: HYDROmorphone INJ* 0.5 MG/0.5 ML SYRINGE IV ONE (18:02)
[2019-10-07] MEDS ORDERED: Piperacillin/Tazobac ADVAN(*) 3.375 GM in NS 0.9% 100 ML* 100 ML IVPB ONE (18:08)
[2019-10-07 20:14] LABS: Troponin I 0.06 ng/mL (<0.04)
[2019-10-07] MEDS ORDERED: Morphine INJ* 4 MG/ML 1 ML SYRINGE (NEW SYRINGE VERSION) IV PRN (22:41)
[2019-10-07] MEDS ORDERED: Zosyn per Pharmacy* NOTE FOLLOW UP SCH (23:00)
[2019-10-07] MEDS ORDERED: Morphine INJ* 2 MG/ML 1 ML SYRINGE (TWO MG - NEW SYRINGE VERSION) IV PRN (23:42)
[2019-10-08] MEDS ORDERED: ZOSYN 3.375 GM Q8H per EXTENDED INFUSION IVPB SCH ×2
--- NOTE | 2019-10-08 01:06 | HP ---
CC: Dr. Armen Goodman ADMISSION HISTORY AND PHYSICAL: DATE OF ADMISSION: ADDENDUM: HOME MEDICATION: As per [facility], the patient is on: 1. Admelog 10 units subcutaneous 3 times a day with each meal. 2. Basaglar KwikPen 50 units subcutaneous twice a day. 3. Buprenorphine-naloxone 8/2 mg 2.5 tablets a day as needed. 4. Butalbital, acetaminophen and caffeine 1 tablet twice a day as needed for headache, max 2 days a week. 5. Cyclobenzaprine 5 mg oral 3 times a day as needed. 6. Eliquis 5 mg oral twice a day. 7. Gabapentin 300 mg 2 tablets by mouth 3 times a day. 8. Lipitor 20 mg oral daily every night. 9. Lisinopril 40 mg every day. 10. MiraLAX 17 g packet every day as needed. 11. NicoDerm transdermal patch daily along with Nicotrol 10 mg every 2 hours as needed. 12. Amlodipine 10 mg every day. 13. Promethazine 25 mg 1 tablet every 8 hours as needed for nausea. 14. Protonix 40 mg oral daily. 15. Prozac 40 mg every day. 16. Quetiapine 25 mg by mouth at bedtime. 17. Senna and docusate 8.6/50 oral daily. 18. Topiramate 50 mg oral twice a day. 19. Urecholine 25 mg 4 times a day. ASSESSMENT AND PLAN: 2. History of diabetes, on insulin. Restart her insulin dosage, but we will hold the mealtime dose for now, as patient is kept n.p.o. and continue with fingerstick monitoring. 3. History of hypertension. Restart BP medications. 4. History to dyslipidemia. Restart Lipitor. 5. History of depression. Restart home depression medication. 6. History of chronic opiate abuse. Continue the Suboxone therapy. 7. History of DVT. Continue Eliquis. 8. History of gastroparesis. Restart home medication. 9. History of diabetic neuropathy. Restart home medication. 10. Gastroesophageal reflux disease. Restart Protonix. 11. Code Status. The patient is DNR/DNI with being surrogate decision maker. [id number]/[facility] #: [id number]
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
[2019-10-08] MEDS: Morphine INJ* 4 MG/ML 1 ML SYRINGE (NEW SYRINGE VERSION) IV PRN ×6 (01:38→23:52)
[2019-10-08] MEDS ORDERED: ZOSYN 3.375 GM x ONE DOSE over 30 miuntes IVPB ×2 (02:30)
[2019-10-08] MEDS: NS 0.9% 1000 ML** 1,000 ML IV SCH ×2 (02:41→13:14)
[2019-10-08 04:00] LABS: Troponin I 0.05 ng/mL (<0.04)
[2019-10-08] MEDS ORDERED: Nicotine* 4MG (FRUIT FLAVOR) GUM PO PRN (05:53)
[2019-10-08 06:45] LABS: Troponin I 0.05 ng/mL (<0.04)
[2019-10-08 06:49] LABS: Magnesium 1.8 mg/dL (1.9-2.7)
[2019-10-08 06:54] LABS: ABS Eosinophils 0.2 10^3/ul (0-0.6); ABS Lymphocytes 1.9 10^3/ul (1.0-4.8); ABS Monocytes 0.3 10^3/ul (0-0.8); ABS Neutrophils 3.1 10^3/ul (1.5-7.7); Eosinophil % 2.8 %; Hematocrit 39 % (35-47); Lymphocyte % 34.1 %; Mean Corpuscular HGB Conc 33 g/dL (31-36); Mean Corpuscular Hemoglobin 29 pg (27-31); Mean Corpuscular Volume 88 fL (80-97); Mean Platelet Volume 8.6 fL (7.4-10.4); Platelet Count 179 10^3/uL (150-450); Red Blood Count 4.44 10^6 /uL (3.70-4.87); Red Cell Distribution Width 14 % (10-15); White Blood Count 5.5 10^3/uL (3.5-10.8)
[2019-10-08] MEDS: ZOSYN 3.375 GM Q8H per EXTENDED INFUSION IVPB SCH ×6 (07:54→23:51)
[2019-10-08] MEDS ORDERED: Lisinopril TAB* 10 MG PO SCH (09:00)
[2019-10-08 09:10] LABS: Calcium 8.2 mg/dL (8.6-10.3); Potassium 3.6 mmol/L (3.5-5.0)
[2019-10-08] MEDS: FLUoxetine CAP* 20 MG PO SCH (09:13)
[2019-10-08] MEDS: amLODIPine TAB* 5 MG PO SCH (09:13)
[2019-10-08] MEDS: cloNIDine TAB* 0.1 MG PO SCH ×2 (09:13→13:09)
[2019-10-08] MEDS: Topiramate TAB(*) 25 MG PO SCH ×2 (09:14→20:33)
[2019-10-08] MEDS: Gabapentin CAP(*) 300 MG PO SCH ×3 (09:14→20:35)
[2019-10-08] MEDS: Promethazine TAB* 25 MG PO PRN ×2 (09:14→20:51)
[2019-10-08] MEDS: Pantoprazole TAB * 40 MG TAB PO SCH (09:14)
[2019-10-08 09:15] LABS: BUN/Creatinine Ratio 24.1 (8-20); EGFR African American 130.1 (>60); EGFR Non-African American 107.5 (>60)
[2019-10-08] MEDS: Apixaban* 5 MG TAB PO SCH ×2 (09:15→20:34)
[2019-10-08] MEDS: Buprenorp/Nalox 8-2 MG FILM SL FILM SCH ×3 (09:15→20:32)
[2019-10-08] MEDS: Insulin GLARGINE(*) 1 UNITS UNIT SUBCUT SCH ×2 (09:15→20:50)
[2019-10-08] MEDS: Bethanechol TAB* 25 MG PO SCH ×4 (09:46→20:32)
[2019-10-08] MEDS ORDERED: Influenza VAC *QUAD* 2019-20* 0.5 ML SYRINGE IM ONE (13:00)
--- NOTE | 2019-10-08 13:01 | ECHO ---
*[facility]* [place] [address] Fax #: [phone] Transthoracic Echocardiogram Patient: Evie Simpson : 1965 Study Date: 10/08/2019 Age: 54 Gender: F HR: 81 bpm Height: 61 in /154.9 cm BSA: 1.64 m^2 Weight: 142.7 lb /64.9 kg BMI: 27 kg/m^2 *Art Therapist: * Sirena Alvarado [facility] *Referring Physician: * Arvin Ramirez *Reading Physician: * Govind Novak MD Indications: Elevated TROP. History: Risk factors: Hypertension. Diabetes mellitus. Dyslipidemia. Conclusions Summary: - Impressions: The study is unchanged since the study of January 2019. - Left ventricle: The cavity size is trivially reduced. Wall thickness is mildly to moderately increased. The estimated ejection fraction is 60-65%. Possible hypokinesis of the basal inferolateral myocardium similar to the piror study of 02/14 on direct comparison (but not as well seen last time). Doppler parameters are consistent with abnormal left ventricular relaxation (grade 1 diastolic dysfunction). Study data: Transthoracic echocardiogram. Procedure: Transthoracic echocardiography was performed. Image quality was good. Complete 2D, spectral Doppler, and color flow Doppler. Location: Bedside. Patient status: Inpatient. Patient room number: 442 02. Comparison is made to the study of January 2019. Rhythm: Normal sinus rhythm. Findings Left ventricle: The cavity size is trivially reduced. Wall thickness is mildly to moderately increased. The estimated ejection fraction is 60-65%. Regional wall motion abnormalities: Hypokinesis of the basalinferior myocardium. Possible hypokinesis of the basal inferolateral myocardium similar to the piror study of 02/14 on direct comparison (but not as well seen last time). Doppler parameters are consistent with abnormal left ventricular relaxation (grade 1 diastolic dysfunction). Right ventricle: The cavity size is normal. Systolic function is normal. Left atrium: The atrium is normal in size. Right atrium: The atrium is normal in size. Mitral valve: The leaflets are normal thickness. There is no evidence of stenosis. There is trace to mild regurgitation. Aortic valve: The valve is trileaflet. The leaflets are normal thickness. There is no evidence of stenosis. There is no significant regurgitation. Tricuspid valve: The leaflets are normal thickness. There is no evidence of stenosis. There is no significant regurgitation. Pulmonic valve: The leaflets are normal thickness. There is no evidence of stenosis. There is trace regurgitation. Aorta: The aortic root appears normal. The aortic arch appears normal. Pericardium: There is no significant pericardial effusion. Pulmonary arteries: The main pulmonary artery is normal-sized. Systolic pressure can not be accurately estimated. Systemic veins: Inferior vena cava: The vessel is normal in size. There is (>= 50%) respiratory change in the IVC dimension. Measurements Left ventricle Value Ref Aortic valve continued Value Ref NICOLASA, LAX (L) 3.7 cm 3.8 - 5.2 Peak v, S 1.08 m/sec ---- ESD, LAX 2.9 cm 2.2 - 3.5 VTI, S 21.9 cm ---- FS, LAX (L) 23 % 27 - 45 Mean grad, S 2.0 mm Hg ---- PW, ED, LAX (H) 1.3 cm 0.6 - 0.9 Peak grad, S 5.0 mm Hg ---- EF (L) 47 % 54 - 74 E', lat redd, TDI (L) 8.0 cm/sec >=10.0 Mitral valve Value Re f E/e', lat redd, 9 Peak E 0.69 m/sec ---- TDI Peak A 0.62 m/sec ---- E', med redd, TDI (L) 5.1 cm/sec >=7.0 Decel time 103 ms -- -- E/e', med redd, 13 Peak E/A ratio 1.1 ---- TDI E', avg, TDI 6.6 cm/sec Pulmonic valve Value Ref E/e', avg, TDI 10 <=14 Peak v, S 0.46 m/sec -- -- Peak grad, S 1.0 mm Hg ---- LVOT Value Ref Peak gatito, S 0.78 m/sec Aortic root Value Ref Mean grad, S 1 mm Hg Root diam 3.1 cm <3.9 Ventricular septum Value Ref Ascending aorta Value Ref IVS, ED (H) 1.3 cm 0.6 - 0.9 AAo AP diam, S 3.1 cm ---- Right ventricle Value Ref Aortic arch Value Ref NICOLASA, LAX 2.8 cm Arch diam 3.2 cm ---- Left atrium Value Ref Decending aorta Value Ref AP dim, ES (H) 3.90 cm 2.70 - Lisa peak gatito 0.54 m/sec ---- 3.80 ML dim, A4C 4.0 cm Inferior vena cava Value Ref SI dim, A4C 4.9 cm Diam 1.6 cm ---- Vol/bsa, ES, A/L 28 ml/m^2 16 - 34 Pulmonary veins Value Ref Right atrium Value Ref Peak v, S 0.34 m/sec ---- SI dim, ES 4.4 cm 3.4 - 5.3 Peak v, D 0.34 m/sec ---- ML dim, ES, A4C 3.0 cm 2.6 - 4.4 Peak S/D ratio 1 ---- Estimated RAP 8 mm Hg A rev duration 108 ms ---- Aortic valve Value Ref Redd diam, ED 2.0 cm Legend: (L) and (H) arti values outside specified reference range. Prepared and electronically signed by Govind Novak MD 10/08/2019 13:00
--- NOTE | 2019-10-08 14:07 | PN ---
Subjective Date of Service: 10/08/19 Interval History: Admitted late last night for colitis. Diarrhea resolved after starting Zosyn. Pt still with significant pain. Appetite recovering but still nauseous, so having only some liquids. Denies fevers, chills, vomiting. Continues to deny chest pain, palpitations, SOB. TTE unchanged from 8 months ago. Trop 0.06 -> 0.05 without intervention. Objective Active Medications: Amlodipine Besylate (Norvasc Tab*) 10 mg PO DAILY [facility] Last Admin: 10/08/19 09:13 Dose: 10 mg Apixaban (Eliquis*) 5 mg PO BID [facility] Last Admin: 10/08/19 09:15 Dose: 5 mg Atorvastatin Calcium (Lipitor*) 20 mg PO BEDTIME [facility] Bethanechol Chloride (Urecholine Tab*) 25 mg PO QID [facility] Last Admin: 10/08/19 13:09 Dose: 25 mg Buprenorphine/Naloxone (Suboxone 8 Mg-2 Mg Sl Film) 1 each SL FILM TID [facility] Last Admin: 10/08/19 13:10 Dose: 1 each Clonidine HCl (Catapres Tab*) 0.1 mg PO TID [facility] Last Admin: 10/08/19 13:09 Dose: 0.1 mg Cyclobenzaprine HCl (Flexeril Tab*) 5 mg PO TID PRN PRN Reason: SPASMS - MUSCLE Fluoxetine HCl (Prozac Cap*) 40 mg PO DAILY [facility] Last Admin: 10/08/19 09:13 Dose: 40 mg Gabapentin (Neurontin Cap(*)) 600 mg PO TID [facility] Last Admin: 10/08/19 13:09 Dose: 600 mg Sodium Chloride (Ns 0.9% 1000 Ml) 1,000 mls @ 125 mls/hr IV PER RATE [facility] Last Admin: 10/08/19 13:14 Dose: 125 mls/hr Piperacillin Sod/Tazobactam (Sod 3.375 gm/ Sodium Chloride) 100 mls @ 25 mls/ hr IVPB Q8H [facility] Last Admin: 10/08/19 07:54 Dose: 25 mls/hr Insulin Glargine (Lantus(*)) 40 units SUBCUT BID [facility] Last Admin: 10/08/19 09:15 Dose: 40 units Lisinopril (Prinivil Tab*) 40 mg PO DAILY [facility] Last Admin: 10/08/19 09:26 Dose: 40 mg Morphine Sulfate (Morphine Inj (Syringe)*) 4 mg IV Q4H PRN PRN Reason: PAIN - SEVERE Last Admin: 10/08/19 13:57 Dose: 4 mg Nicotine Polacrilex (Nicotine Gum*) 4 mg PO Q2H PRN PRN Reason: WITHDRAWAL - NICOTINE Pantoprazole Sodium (Protonix Tab*) 40 mg PO DAILY [facility] Last Admin: 10/08/19 09:14 Dose: 40 mg Pharmacy Consult (Zosyn Per Pharmacy*) 1 note FOLLOW UP .ZOSYN PER PHARMACY [facility] Promethazine HCl (Phenergan Tab*) 25 mg PO Q8H PRN PRN Reason: NAUSEA Last Admin: 10/08/19 09:14 Dose: 25 mg Quetiapine Fumarate (Seroquel Tab*) 25 mg PO BEDTIME [facility] Topiramate (Topamax(*)) 50 mg PO BID [facility] Last Admin: 10/08/19 09:14 Dose: 50 mg Vital Signs - 8 hr 10/08/19 10/08/19 10/08/19 07:56 07:57 08:00 Temperature 97.9 F Pulse Rate 77 Respiratory 18 18 18 Rate Blood Pressure 140/76 (mmHg) O2 Sat by Pulse 97 Oximetry 10/08/19 10/08/19 10/08/19 09:14 09:45 11:09 Temperature Pulse Rate Respiratory 18 18 16 Rate Blood Pressure (mmHg) O2 Sat by Pulse Oximetry 10/08/19 10/08/19 10/08/19 11:29 13:09 13:57 Temperature 97.7 F Pulse Rate 80 Respiratory 18 20 20 Rate Blood Pressure 124/80 (mmHg) O2 Sat by Pulse 98 Oximetry Oxygen Devices in Use Now: None Appearance: mildly uncomfortable appearing woman in NAD, alert and interactive, speaking in full sentences Eyes: No Scleral Icterus Ears/Nose/Mouth/Throat: Clear Oropharnyx, Mucous Membranes Moist Neck: NL Appearance and Movements; NL JVP, Trachea Midline Respiratory: Symmetrical Chest Expansion and Respiratory Effort, Clear to Auscultation Cardiovascular: NL Sounds; No Murmurs; No JVD, RRR Abdominal: - - ttp over L-side of abdomen, no guarding or rebound, normal bowel sounds Extremities: No Edema Skin: No Rash or Ulcers Result Diagrams: 10/08/19 06:47 10/08/19 06:47 Assess/Plan/Problems-Billing Assessment: 54W with HTN, DM2 on insulin c/b neuropathy, PE on Eliquis, GERD, MDD, h/o OUD on Suboxone, chronic LBP, presents with LLQ pain associated with nausea and diarrhea, found with colitis on CT. - Patient Problems (1) Colitis Comment: Segmental colitis associated with diverticulosis. By symptoms and CT. - switch Zosyn (10/07 - 10/08) started in ER to cipro/flagyl PO - can consider mesalamine if not improved - clear diet for now, advance as tolerated - support with IVF, antiemetics (2) Pulmonary embolism Current Visit: No Status: Acute Code(s): I26.99 - OTHER PULMONARY EMBOLISM WITHOUT ACUTE COR PULMONALE SNOMED Code(s): 39022005 Comment: Acute unprovoked PE in January 2019. - cont home Eliquis (3) Hypertension Comment: - hold clonidine and lisinopril in setting of hypotension - can continue amlodipine if BPs recover, add others back later (although will consider alternative to clonidine) (4) Opioid use disorder Comment: - cont home Suboxone (5) Diabetes mellitus Current Visit: Yes Comment: - home glargine 40u bid with mealtime sliding scale insulin (6) Mood disorder of depressed type Comment: - cont fluoxetine and quetiapine (7) Diabetic neuropathy Comment: cont home gabapentin (8) Back pain Comment: continue home cyclobenzaprine
[2019-10-08] MEDS ORDERED: Lactated Ringers 1000 ML Bag* 1,000 ML IV SCH (16:00)
[2019-10-08] MEDS ORDERED: Dextrose 50% VIAL 50 ml IV PUSH PRN (18:05)
[2019-10-08] MEDS ORDERED: Magnesium Sulfate 1 GM IV* 1 GM/100 ML BAG IV ONE (19:40)
[2019-10-08] MEDS ORDERED: Potassium Chlor TAB* 20 MEQ TAB.ER PO ONE (19:41)
[2019-10-08] MEDS: Atorvastatin* 20 MG TAB PO SCH (20:33)
[2019-10-08] MEDS: QUEtiapine TAB* 25 MG PO SCH (20:33)
[2019-10-08] MEDS: Insulin LISPRO* 1 UNITS UNIT SUBCUT SCH (20:50)
[2019-10-09] MEDS: metroNIDAZOLE * 500 MG TABLET PO SCH ×2 (05:44→17:39)
[2019-10-09] MEDS: Ciprofloxacin TAB* 500 MG PO SCH ×3 (05:44→20:23)
[2019-10-09] MEDS: Morphine INJ* 4 MG/ML 1 ML SYRINGE (NEW SYRINGE VERSION) IV PRN ×3 (05:59→15:38)
[2019-10-09 06:53] LABS: Hematocrit 38 % (35-47); Hemoglobin 12.6 g/dL (12.0-16.0); Mean Corpuscular HGB Conc 33 g/dL (31-36); Mean Corpuscular Hemoglobin 29 pg (27-31); Mean Corpuscular Volume 88 fL (80-97); Mean Platelet Volume 8.8 fL (7.4-10.4); Platelet Count 174 10^3/uL (150-450); Red Blood Count 4.35 10^6 /uL (3.70-4.87); Red Cell Distribution Width 14 % (10-15); White Blood Count 5.6 10^3/uL (3.5-10.8)
[2019-10-09 07:13] LABS: BUN/Creatinine Ratio 14.8 (8-20); Calcium 8.5 mg/dL (8.6-10.3); EGFR African American 122.8 (>60); EGFR Non-African American 101.5 (>60); Magnesium 2.1 mg/dL (1.9-2.7); Potassium 3.5 mmol/L (3.5-5.0)
[2019-10-09] MEDS: ZOSYN 3.375 GM Q8H per EXTENDED INFUSION IVPB SCH ×4 (07:39→15:38)
[2019-10-09] MEDS: Insulin LISPRO* 1 UNITS UNIT SUBCUT SCH ×4 (08:40→20:49)
[2019-10-09] MEDS: Insulin GLARGINE(*) 1 UNITS UNIT SUBCUT SCH ×2 (10:11→20:48)
[2019-10-09] MEDS: Bethanechol TAB* 25 MG PO SCH ×4 (10:11→20:22)
[2019-10-09] MEDS: FLUoxetine CAP* 20 MG PO SCH (10:12)
[2019-10-09] MEDS: amLODIPine TAB* 5 MG PO SCH (10:12)
[2019-10-09] MEDS: Gabapentin CAP(*) 300 MG PO SCH ×3 (10:12→20:28)
[2019-10-09] MEDS: Topiramate TAB(*) 25 MG PO SCH ×2 (10:14→20:22)
[2019-10-09] MEDS: Pantoprazole TAB * 40 MG TAB PO SCH (10:14)
[2019-10-09] MEDS: Buprenorp/Nalox 8-2 MG FILM SL FILM SCH ×3 (10:15→20:22)
[2019-10-09] MEDS: Apixaban* 5 MG TAB PO SCH ×2 (10:15→20:25)
[2019-10-09] MEDS: Promethazine TAB* 25 MG PO PRN (11:42)
[2019-10-09] MEDS: NS 0.9% 1000 ML** 1,000 ML IV SCH (13:27)
--- NOTE | 2019-10-09 15:20 | PN ---
Subjective Date of Service: 10/09/19 Interval History: Pt reports slight improvement in abd pain, nausea. Able to tolerate more clears. Still no BM since admission. Denies fevers, chills, vomiting. Passing gas. Objective Active Medications: Amlodipine Besylate (Norvasc Tab*) 10 mg PO DAILY [facility] Last Admin: 10/09/19 10:12 Dose: 10 mg Apixaban (Eliquis*) 5 mg PO BID [facility] Last Admin: 10/09/19 10:15 Dose: 5 mg Atorvastatin Calcium (Lipitor*) 20 mg PO BEDTIME [facility] Last Admin: 10/08/19 20:33 Dose: 20 mg Bethanechol Chloride (Urecholine Tab*) 25 mg PO QID [facility] Last Admin: 10/09/19 17:12 Dose: 25 mg Buprenorphine/Naloxone (Suboxone 8 Mg-2 Mg Sl Film) 1 each SL FILM TID [facility] Last Admin: 10/09/19 14:23 Dose: 1 each Ciprofloxacin (Cipro Tab*) 500 mg PO Q12HR [facility]; Protocol Last Admin: 10/09/19 10:15 Dose: 500 mg Cyclobenzaprine HCl (Flexeril Tab*) 5 mg PO TID PRN PRN Reason: SPASMS - MUSCLE Dextrose (Dextrose 50% Vial 50 Ml*) 25 ml IV PUSH .FOR FS < 60 - SS PRN PRN Reason: FS < 60 Fluoxetine HCl (Prozac Cap*) 40 mg PO DAILY [facility] Last Admin: 10/09/19 10:12 Dose: 40 mg Gabapentin (Neurontin Cap(*)) 600 mg PO TID [facility] Last Admin: 10/09/19 14:22 Dose: 600 mg Lactated Ringer's (Lactated Ringers 1000 Ml Bag*) 1,000 mls @ 100 mls/hr IV PER RATE [facility] Insulin Glargine (Lantus(*)) 40 units SUBCUT BID [facility] Last Admin: 10/09/19 10:11 Dose: 40 units Insulin Human Lispro (Humalog*) 0 units SUBCUT ACHS [facility]; Protocol Last Admin: 10/09/19 16:50 Dose: Not Given Magnesium Hydroxide (Milk Of Magnesia Liq*) 30 ml PO BID [facility] Metronidazole (Flagyl) 500 mg PO Q12H [facility] Last Admin: 10/09/19 17:39 Dose: 500 mg Morphine Sulfate (Morphine Inj (Syringe)*) 2 mg IV Q6H PRN PRN Reason: PAIN - SEVERE Nicotine Polacrilex (Nicotine Gum*) 4 mg PO Q2H PRN PRN Reason: WITHDRAWAL - NICOTINE Pantoprazole Sodium (Protonix Tab*) 40 mg PO DAILY [facility] Last Admin: 10/09/19 10:14 Dose: 40 mg Promethazine HCl (Phenergan Tab*) 25 mg PO Q8H PRN PRN Reason: NAUSEA Last Admin: 10/09/19 11:42 Dose: 25 mg Quetiapine Fumarate (Seroquel Tab*) 25 mg PO BEDTIME [facility] Last Admin: 10/08/19 20:33 Dose: 25 mg Topiramate (Topamax(*)) 50 mg PO BID [facility] Last Admin: 10/09/19 10:14 Dose: 50 mg Vital Signs - 8 hr 10/09/19 10/09/19 10/09/19 08:00 10:12 10:37 Temperature Pulse Rate Respiratory 20 18 18 Rate Blood Pressure (mmHg) O2 Sat by Pulse Oximetry 10/09/19 10/09/19 10/09/19 11:15 11:35 14:22 Temperature 97.1 F Pulse Rate 66 Respiratory 20 18 18 Rate Blood Pressure 125/78 (mmHg) O2 Sat by Pulse 97 Oximetry Oxygen Devices in Use Now: None Appearance: comfortable appearing, NAD Ears/Nose/Mouth/Throat: Clear Oropharnyx, Mucous Membranes Moist Neck: NL Appearance and Movements; NL JVP, Trachea Midline Respiratory: Symmetrical Chest Expansion and Respiratory Effort, Clear to Auscultation Cardiovascular: NL Sounds; No Murmurs; No JVD, RRR Abdominal: No Hepatosplenomegaly, - - moderate tenderness to left side of abdomen without guarding or rebound Extremities: No Edema Neurological: Alert and Oriented x 3 Result Diagrams: 10/09/19 06:06 10/09/19 06:06 Assess/Plan/Problems-Billing Assessment: 54W with HTN, DM2 on insulin c/b neuropathy, PE on Eliquis, GERD, MDD, h/o OUD on Suboxone, chronic LBP, presents with LLQ pain associated with nausea and diarrhea, found with colitis on CT. - Patient Problems (1) Colitis Comment: Segmental colitis associated with diverticulosis. By symptoms and CT. - switch Zosyn (10/07 - 10/08) started in ER to cipro/flagyl PO - can consider mesalamine if not improved - clear diet for now, advance as tolerated - support with IVF, antiemetics - monitor QTc on cipro - pending outside colonoscopy records from last month (2) Pulmonary embolism Current Visit: No Status: Acute Code(s): I26.99 - OTHER PULMONARY EMBOLISM WITHOUT ACUTE COR PULMONALE SNOMED Code(s): 43169180 Comment: Acute unprovoked PE in January 2019. - cont home Eliquis (3) Hypertension Comment: - hold clonidine and lisinopril in setting of hypotension - can continue amlodipine if BPs recover, add others back later (although will consider alternative to clonidine) (4) Opioid use disorder Comment: - cont home Suboxone (5) Diabetes mellitus Current Visit: Yes Comment: - home glargine 40u bid with mealtime sliding scale insulin (6) Mood disorder of depressed type Comment: - cont fluoxetine and quetiapine (7) Diabetic neuropathy Comment: cont home gabapentin (8) Back pain Comment: continue home cyclobenzaprine
[2019-10-09] MEDS: Lactated Ringers 1000 ML Bag* 1,000 ML IV SCH (20:06)
[2019-10-09] MEDS: Magnesium Hydroxide LIQ* 30 ML UDC PO SCH (20:21)
[2019-10-09] MEDS: Atorvastatin* 20 MG TAB PO SCH (20:23)
[2019-10-09] MEDS: QUEtiapine TAB* 25 MG PO SCH (20:23)
[2019-10-09] MEDS: Morphine INJ* 2 MG/ML 1 ML SYRINGE (TWO MG - NEW SYRINGE VERSION) IV PRN (20:47)
[2019-10-09] MEDS: Cyclobenzaprine TAB* 10 MG PO PRN (20:50)
[2019-10-10] MEDS: metroNIDAZOLE * 500 MG TABLET PO SCH ×2 (05:16→18:06)
[2019-10-10] MEDS: Morphine INJ* 2 MG/ML 1 ML SYRINGE (TWO MG - NEW SYRINGE VERSION) IV PRN ×3 (07:22→18:06)
[2019-10-10] MEDS: Cyclobenzaprine TAB* 10 MG PO PRN (07:22)
[2019-10-10] MEDS: amLODIPine TAB* 5 MG PO SCH (09:06)
[2019-10-10] MEDS: FLUoxetine CAP* 20 MG PO SCH (09:07)
[2019-10-10] MEDS: Ciprofloxacin TAB* 500 MG PO SCH (09:07)
[2019-10-10] MEDS: Bethanechol TAB* 25 MG PO SCH ×4 (09:07→21:09)
[2019-10-10] MEDS: Apixaban* 5 MG TAB PO SCH ×2 (09:07→21:10)
[2019-10-10] MEDS: Buprenorp/Nalox 8-2 MG FILM SL FILM SCH ×3 (09:07→21:13)
[2019-10-10] MEDS: Gabapentin CAP(*) 300 MG PO SCH ×3 (09:08→21:09)
[2019-10-10] MEDS: Topiramate TAB(*) 25 MG PO SCH ×2 (09:09→21:09)
[2019-10-10] MEDS: Magnesium Hydroxide LIQ* 30 ML UDC PO SCH ×2 (09:09→21:12)
[2019-10-10] MEDS: Pantoprazole TAB * 40 MG TAB PO SCH (09:09)
[2019-10-10] MEDS: Insulin LISPRO* 1 UNITS UNIT SUBCUT SCH ×4 (09:12→21:13)
[2019-10-10 09:27] LABS: BUN/Creatinine Ratio 8.3 (8-20); Calcium 9.1 mg/dL (8.6-10.3); EGFR African American 125.1 (>60); EGFR Non-African American 103.4 (>60); Potassium 3.2 mmol/L (3.5-5.0)
[2019-10-10] MEDS: Insulin GLARGINE(*) 1 UNITS UNIT SUBCUT SCH ×2 (10:37→21:13)
[2019-10-10] MEDS: Lactated Ringers 1000 ML Bag* 1,000 ML IV SCH (16:29)
--- NOTE | 2019-10-10 16:39 | PN ---
Subjective Date of Service: 10/10/19 Interval History: No acute events overnight. Wants to try to advance diet today but still with 7/ 10 left-sided abd pain, nausea. Hasn't had a BM since admission, but had diarrhea prior to coming to ER. Passing gas. Started to take milk of mag last night. Decreased morphine to 2mg q6h prn from 4mg q4h prn. Pt requests to return to 4mg dose. States that 2mg does not change her pain, given her opioid tolerance and the partial agonism of Suboxone. I thought that was a reasonable request. QTc increasing, now 490. Will stop cipro, given that she is also on quetiapine. Switch to CTX to start tonight, unless other recs by GI before then. Pending consideration by Dr. Fernando for mesalamine. Objective Active Medications: Amlodipine Besylate (Norvasc Tab*) 10 mg PO DAILY [facility] Last Admin: 10/10/19 09:06 Dose: 10 mg Apixaban (Eliquis*) 5 mg PO BID [facility] Last Admin: 10/10/19 09:07 Dose: 5 mg Atorvastatin Calcium (Lipitor*) 20 mg PO BEDTIME [facility] Last Admin: 10/09/19 20:23 Dose: 20 mg Bethanechol Chloride (Urecholine Tab*) 25 mg PO QID [facility] Last Admin: 10/10/19 17:28 Dose: 25 mg Buprenorphine/Naloxone (Suboxone 8 Mg-2 Mg Sl Film) 1 each SL FILM TID [facility] Last Admin: 10/10/19 13:07 Dose: 1 each Cyclobenzaprine HCl (Flexeril Tab*) 5 mg PO TID PRN PRN Reason: SPASMS - MUSCLE Last Admin: 10/10/19 07:22 Dose: 5 mg Dextrose (Dextrose 50% Vial 50 Ml*) 25 ml IV PUSH .FOR FS < 60 - SS PRN PRN Reason: FS < 60 Fluoxetine HCl (Prozac Cap*) 40 mg PO DAILY [facility] Last Admin: 10/10/19 09:07 Dose: 40 mg Gabapentin (Neurontin Cap(*)) 600 mg PO TID [facility] Last Admin: 10/10/19 13:06 Dose: 600 mg Lactated Ringer's (Lactated Ringers 1000 Ml Bag*) 1,000 mls @ 100 mls/hr IV PER RATE [facility] Last Admin: 10/10/19 16:29 Dose: 100 mls/hr Ceftriaxone Sodium 1 gm/ (Sodium Chloride) 50 mls @ 100 mls/hr IVPB Q24H [facility] Insulin Glargine (Lantus(*)) 40 units SUBCUT BID [facility] Last Admin: 10/10/19 10:37 Dose: Not Given Insulin Human Lispro (Humalog*) 0 units SUBCUT ACHS [facility]; Protocol Last Admin: 10/10/19 17:27 Dose: 1 units Magnesium Hydroxide (Milk Of Magnesia Liq*) 30 ml PO BID [facility] Last Admin: 10/10/19 09:09 Dose: 30 ml Metronidazole (Flagyl) 500 mg PO Q12H [facility] Last Admin: 10/10/19 05:16 Dose: 500 mg Morphine Sulfate (Morphine Inj (Syringe))*) 4 mg IV Q6H PRN PRN Reason: PAIN - SEVERE Last Admin: 10/10/19 12:02 Dose: 4 mg Nicotine Polacrilex (Nicotine Gum*) 4 mg PO Q2H PRN PRN Reason: WITHDRAWAL - NICOTINE Pantoprazole Sodium (Protonix Tab*) 40 mg PO DAILY [facility] Last Admin: 10/10/19 09:09 Dose: 40 mg Promethazine HCl (Phenergan Tab*) 25 mg PO Q8H PRN PRN Reason: NAUSEA Last Admin: 10/09/19 11:42 Dose: 25 mg Quetiapine Fumarate (Seroquel Tab*) 25 mg PO BEDTIME [facility] Last Admin: 10/09/19 20:23 Dose: 25 mg Topiramate (Topamax(*)) 50 mg PO BID [facility] Last Admin: 10/10/19 09:09 Dose: 50 mg Vital Signs - 8 hr 10/10/19 10/10/19 10/10/19 09:08 09:10 09:20 Temperature Pulse Rate Respiratory 14 14 18 Rate Blood Pressure (mmHg) O2 Sat by Pulse Oximetry 10/10/19 10/10/19 10/10/19 11:15 12:02 12:29 Temperature 98.7 F Pulse Rate 68 Respiratory 14 18 18 Rate Blood Pressure 140/86 (mmHg) O2 Sat by Pulse 96 Oximetry 10/10/19 10/10/19 13:06 15:47 Temperature Pulse Rate Respiratory 18 16 Rate Blood Pressure (mmHg) O2 Sat by Pulse Oximetry Oxygen Devices in Use Now: None Appearance: appears older than stated age, otherwise well and in NAD Eyes: No Scleral Icterus Ears/Nose/Mouth/Throat: Clear Oropharnyx, Mucous Membranes Moist Neck: NL Appearance and Movements; NL JVP, Trachea Midline Respiratory: Symmetrical Chest Expansion and Respiratory Effort, Clear to Auscultation Cardiovascular: NL Sounds; No Murmurs; No JVD, RRR Abdominal: - - ttp over LUQ/LLQ, no guarding or rebound Extremities: No Edema Skin: No Rash or Ulcers Neurological: Alert and Oriented x 3 Result Diagrams: 10/09/19 06:06 10/10/19 08:40 Assess/Plan/Problems-Billing Assessment: 54W with HTN, DM2 on insulin c/b neuropathy/gastroparesis, PE on Eliquis, GERD, MDD, h/o OUD on Suboxone, chronic LBP, presents with LLQ pain associated with nausea and diarrhea, found with colitis on CT. - Patient Problems (1) Colitis Comment: Segmental colitis associated with diverticulosis. By symptoms and CT. - switch Zosyn (10/07 - ) started in ER to CTX/metronidizole - stopped cipro given increasing QTc - GI consult pending for consideration of steroids - advance diet as tolerated - support with IVF prn, antiemetics prn - pending outside colonoscopy records from last month (2) Pulmonary embolism Current Visit: No Status: Acute Code(s): I26.99 - OTHER PULMONARY EMBOLISM WITHOUT ACUTE COR PULMONALE SNOMED Code(s): 49201753 Comment: Acute unprovoked PE in January 2019. - cont home Eliquis (3) Hypertension Comment: - hold clonidine and lisinopril in setting of hypotension - can continue amlodipine if BPs recover, add others back later (although will consider alternative to clonidine) (4) Opioid use disorder Comment: - cont home Suboxone (5) Diabetes mellitus Current Visit: Yes Comment: - home glargine 40u bid with mealtime sliding scale insulin (6) Mood disorder of depressed type Comment: - cont fluoxetine and quetiapine (7) Diabetic neuropathy Comment: cont home gabapentin (8) Back pain Comment: continue home cyclobenzaprine
[2019-10-10] MEDS ORDERED: Potassium Chlor TAB* 20 MEQ TAB.ER PO ONE (17:54)
[2019-10-10] MEDS ORDERED: Magnesium CITRATE* 300 ML BTL PO ONE (18:31)
--- NOTE | 2019-10-10 19:14 | CONS ---
GASTROENTEROLOGY CONSULT: DATE OF CONSULT : 10/10/19 CONSULTING PHYSICIAN: Elizabeth Stark MD REASON FOR CONSULTATION: Persisting left lower quadrant pain. HISTORY OF PRESENT ILLNESS: This 54-year-old insulin-dependent diabetic said she began experiencing left-sided pain about 10/02/19 or 10/03/19. She lost her appetite and just had an achy feeling on the left side. There was no fever. She says her stools have fluctuated between hard and loose. She does not have one every day. After 3 days, she says her brought her to the emergency room where she was afebrile, white count was 5.8. CT scan showed thickening of the sigmoid colon, though there was no inflammatory signs around it. She was admitted and placed on Cipro and Flagyl. She has not improved. Yesterday, she had a firm stool and then none today. A question has arisen about her antibiotic choices. Her QT interval apparently has prolonged. PAST MEDICAL HISTORY: 1. Morbid obesity. 2. History of pulmonary embolism - spring 2018 - [facility]. 3. Diabetes - insulin, requiring longstanding. 4. History of migraines - for which she was given opiates and became addicted in her 20s. 5. Opiate use disorder - on Suboxone 10 years, currently followed by Dr. Rodriguez in [place], who she sees once a month. 6. Colon polyp - reports in Dr Goodman's [facility] - 2 cm right colon in January [address] Maxwell in [facility]. 7. History of ischemic colitis - in [place] at [facility] in [place] approximately 10 years ago. She had 2 subsequent admissions for diarrhea to [facility] in [place], though she does not know the details of that 8. Chronic constipation - partial [facility] records have been transferred to the [facility]. It revealed the January 2018 colonoscopy at [facility] where with cautery a 2 cm polyp was removed from the right colon. Attempted followup in June 2019 could not be done as she was not cleaned out at all. The note from 2018; however, states that there were internal hemorrhoids polyp and no other pathology. She is unfamiliar with a term diverticulosis and becomes a little confused when trying to recall all her prior episodes. 9. Status post cholecystectomy. 10. Total abdominal hysterectomy. 11. Appendectomy. 12. Gastroparesis - the patient states this was diagnosed at [facility], though no records related to that are available. OUTPATIENT MEDICATIONS: Show relevant to the gut: 1. Pantoprazole 40. 2. Eliquis 5 b.i.d. 3. Fluoxetine 40. 4. Topiramate 50 b.i.d. 5. Urecholine. ALLERGIES: METOCLOPRAMIDE, SULFA and PENICILLINS, reactions not specified. SOCIAL HISTORY: She moved from [place] 4 years ago. REVIEW OF SYSTEMS: It is notable she has had 5 CT of the abdomen and pelvis since February 2017 with the first 2 stating there was no cause for abdominal pain seen. Her white count was elevated at 13.5 in September 2018 when she was admitted with urosepsis. All other white counts have been under 7.5. Recently , she has not had any nausea or vomiting, jaundice, gallstones, hemoptysis. There is no history of syncope, arrhythmias, tachycardia, coronary disease, or renal stone disease. Thrombophilia workup in January 2019 did show a negative test for factor V Leiden and prothrombin mutation. PHYSICAL EXAM: She is a substantially overweight middle-aged woman, in no overt distress at this time. She is eating a mechanical soft dinner with the nurse having said that she advocated to have her diet advanced. HEENT exam is unremarkable. She has no adenopathy. Her lungs are clear. Heart sounds are regular. The abdomen is obese, symmetric with normal bowel sounds throughout. Perianal inspection (after explanation) with a nurse present revealed an empty rectum and high in the rectum hard, large, scybalous stool that cannot be moved with the exam finger. This is a large very hard stony plug. Extremities show no edema. DIAGNOSTIC STUDIES/LAB DATA: Hemoglobin 14.5 on admission, now 12.6; MCV 88; white count is still 5.6; platelets 174. Creatinine 0.6, BUN 5, albumin 4.0. LFTs normal apart from mildly elevated alkaline phosphatase which has been between 116 and 150 ever since August 2018. Urine specific gravity on admission was 1.035. IMPRESSION: This 54-year-old woman who has had ischemic colitis in the past and other admissions for diarrheal episodes, for which a specific diagnosis is not known to her, now comes in with a variable bowel habit. The fact that she is on Suboxone and has chronic disease issues makes evaluation of symptoms more difficult. It would make her setup for functional bowel problems or impaction. Currently, she seems to have an impaction. Whether that could be synchronous with diverticulitis is unclear. CRPs might help in current and future decisions She is not improving with treatment for diverticulitis and would add some enemas and milk of magnesia and/or magnesium citrate by mouth. [id number]/[id number] #: [id number] MTDD
[2019-10-10] MEDS ORDERED: cefTRIAXone(*) 1 GM in NS 0.9% 50 ML* 50 ML IVPB SCH (21:00)
[2019-10-10] MEDS: QUEtiapine TAB* 25 MG PO SCH (21:09)
[2019-10-10] MEDS: Atorvastatin* 20 MG TAB PO SCH (21:09)
[2019-10-11] MEDS: Morphine INJ* 2 MG/ML 1 ML SYRINGE (TWO MG - NEW SYRINGE VERSION) IV PRN ×3 (04:06→18:22)
[2019-10-11] MEDS: Promethazine TAB* 25 MG PO PRN (04:06)
[2019-10-11] MEDS: metroNIDAZOLE * 500 MG TABLET PO SCH (05:00)
[2019-10-11 06:54] LABS: BUN/Creatinine Ratio 18.6 (8-20); Calcium 9.1 mg/dL (8.6-10.3); EGFR African American 104.7 (>60); EGFR Non-African American 86.6 (>60); Magnesium 2.3 mg/dL (1.9-2.7); Potassium 3.8 mmol/L (3.5-5.0)
[2019-10-11] MEDS: Insulin LISPRO* 1 UNITS UNIT SUBCUT SCH ×4 (08:42→23:02)
[2019-10-11] MEDS: Insulin GLARGINE(*) 1 UNITS UNIT SUBCUT SCH ×2 (09:11→23:02)
[2019-10-11] MEDS: Gabapentin CAP(*) 300 MG PO SCH ×3 (10:04→23:01)
[2019-10-11] MEDS: FLUoxetine CAP* 20 MG PO SCH (10:04)
[2019-10-11] MEDS: Apixaban* 5 MG TAB PO SCH ×2 (10:06→23:01)
[2019-10-11] MEDS: Bethanechol TAB* 25 MG PO SCH ×4 (10:06→23:07)
[2019-10-11] MEDS: amLODIPine TAB* 5 MG PO SCH (10:06)
[2019-10-11] MEDS: Pantoprazole TAB * 40 MG TAB PO SCH ×2 (10:07→21:01)
[2019-10-11] MEDS: Magnesium Hydroxide LIQ* 30 ML UDC PO SCH ×2 (10:07→23:03)
[2019-10-11] MEDS: Buprenorp/Nalox 8-2 MG FILM SL FILM SCH ×3 (10:07→23:04)
[2019-10-11] MEDS: Topiramate TAB(*) 25 MG PO SCH ×2 (10:07→23:03)
--- NOTE | 2019-10-11 14:51 | PN ---
Subjective Date of Service: 10/11/19 Interval History: Pt is feeling better but continues to have intermittent severe L sided abdominal pain. She has had 3 small semi-formed (pt not completely sure of consistency) today. She states she develops pain after eating the regular consistency food but she has been eating 90-100% of her food. Objective Active Medications: Amlodipine Besylate (Norvasc Tab*) 10 mg PO DAILY [facility] Last Admin: 10/11/19 10:06 Dose: 10 mg Apixaban (Eliquis*) 5 mg PO BID [facility] Last Admin: 10/11/19 10:06 Dose: 5 mg Atorvastatin Calcium (Lipitor*) 20 mg PO BEDTIME [facility] Last Admin: 10/10/19 21:09 Dose: 20 mg Bethanechol Chloride (Urecholine Tab*) 25 mg PO QID [facility] Last Admin: 10/11/19 12:58 Dose: 25 mg Buprenorphine/Naloxone (Suboxone 8 Mg-2 Mg Sl Film) 1 each SL FILM TID [facility] Last Admin: 10/11/19 12:58 Dose: 1 each Cyclobenzaprine HCl (Flexeril Tab*) 5 mg PO TID PRN PRN Reason: SPASMS - MUSCLE Last Admin: 10/10/19 07:22 Dose: 5 mg Dextrose (Dextrose 50% Vial 50 Ml*) 25 ml IV PUSH .FOR FS < 60 - SS PRN PRN Reason: FS < 60 Fluoxetine HCl (Prozac Cap*) 40 mg PO DAILY [facility] Last Admin: 10/11/19 10:04 Dose: 40 mg Gabapentin (Neurontin Cap(*)) 600 mg PO TID [facility] Last Admin: 10/11/19 12:58 Dose: 600 mg Ceftriaxone Sodium 1 gm/ (Sodium Chloride) 50 mls @ 100 mls/hr IVPB Q24H [facility] Last Admin: 10/10/19 21:11 Dose: 100 mls/hr Insulin Glargine (Lantus(*)) 40 units SUBCUT BID [facility] Last Admin: 10/11/19 09:11 Dose: 40 units Insulin Human Lispro (Humalog*) 0 units SUBCUT ACHS [facility]; Protocol Last Admin: 10/11/19 12:28 Dose: 2 units Magnesium Hydroxide (Milk Of Magnesia Liq*) 30 ml PO BID [facility] Last Admin: 10/11/19 10:07 Dose: 30 ml Metronidazole (Flagyl) 500 mg PO Q12H [facility] Last Admin: 10/11/19 05:00 Dose: 500 mg Morphine Sulfate (Morphine Inj (Syringe))*) 4 mg IV Q6H PRN PRN Reason: PAIN - SEVERE Last Admin: 10/11/19 10:31 Dose: 4 mg Nicotine Polacrilex (Nicotine Gum*) 4 mg PO Q2H PRN PRN Reason: WITHDRAWAL - NICOTINE Pantoprazole Sodium (Protonix Tab*) 40 mg PO DAILY [facility] Last Admin: 10/11/19 10:07 Dose: 40 mg Promethazine HCl (Phenergan Tab*) 25 mg PO Q8H PRN PRN Reason: NAUSEA Last Admin: 10/11/19 04:06 Dose: 25 mg Quetiapine Fumarate (Seroquel Tab*) 25 mg PO BEDTIME [facility] Last Admin: 10/10/19 21:09 Dose: 25 mg Topiramate (Topamax(*)) 50 mg PO BID [facility] Last Admin: 10/11/19 10:07 Dose: 50 mg Vital Signs - 8 hr 10/11/19 10/11/19 10/11/19 07:47 08:00 09:15 Temperature 97.9 F 98.3 F Pulse Rate 86 105 Respiratory 18 18 14 Rate Blood Pressure 120/74 137/85 (mmHg) O2 Sat by Pulse 100 98 Oximetry 10/11/19 10/11/19 10/11/19 10:04 10:31 11:52 Temperature 98 F Pulse Rate 98 Respiratory 14 20 18 Rate Blood Pressure 112/79 (mmHg) O2 Sat by Pulse 96 Oximetry 10/11/19 10/11/19 10/11/19 12:30 12:49 12:58 Temperature Pulse Rate Respiratory 18 18 18 Rate Blood Pressure (mmHg) O2 Sat by Pulse Oximetry Oxygen Devices in Use Now: None Appearance: Middle aged female lying in bed, NAD Eyes: No Scleral Icterus Ears/Nose/Mouth/Throat: Mucous Membranes Moist Respiratory: Symmetrical Chest Expansion and Respiratory Effort, Clear to Auscultation Cardiovascular: NL Sounds; No Murmurs; No JVD, No Edema, - - tachycardic but regular Abdominal: - - BS+ soft, ND, tender to minimal palpation Extremities: No Clubbing, Cyanosis Skin: No Nodules or Sclerosis Neurological: Alert and Oriented x 3 Result Diagrams: 10/09/19 06:06 10/11/19 06:16 Assess/Plan/Problems-Billing Ms Simpson is a 54yo F with HTN, DM2 on insulin c/b neuropathy/gastroparesis, PE on Eliquis, GERD, MDD, h/o OUD on Suboxone, chronic LBP, presents with LLQ pain associated with nausea and diarrhea, found with colitis on CT. - Patient Problems (1) Colitis Current Visit: Yes Status: Acute Code(s): K52.9 - NONINFECTIVE GASTROENTERITIS AND COLITIS, UNSPECIFIED SNOMED Code(s): 03337508 Comment: Pt with CT scan suggestive of colitis of the distal colon. She does not have an elevated WBC count and her CRP is only mildly elevated. She remains on ceftriaxone and flagyl (today is D#5). I do not think she has an infectious colitis. Will stop Abx therapy. Her pain generally has seemed to improve some though she continues to use prn morphine. She states she develops pain after eating but has been eating 90-100% of her meals. Will touch base with GI for further recommendations. (2) Diabetes mellitus Current Visit: Yes Status: Acute Code(s): E11.9 - TYPE 2 DIABETES MELLITUS WITHOUT COMPLICATIONS SNOMED Code(s): 72346087 Comment: Blood sugars have ranged from 60-236 but generally are in the mid 100's. Contiue home glargine 40units bid with mealtime sliding scale insulin. She also has diabetic gastroparesis and diabetic neuropathy- continue gabapenting and phenergan. (3) Hypertension Current Visit: Yes Status: Acute Code(s): I10 - ESSENTIAL (PRIMARY) HYPERTENSION SNOMED Code(s): 71257792 Comment: BP is controlled on amlodipine alone. She is currently tachycardic- ? rebound tachycardia from withdrawal of clonidine. Monitor HR and BP. (4) Mood disorder of depressed type Current Visit: Yes Status: Acute Code(s): F32.9 - MAJOR DEPRESSIVE DISORDER , SINGLE EPISODE, UNSPECIFIED SNOMED Code(s): 20914308 Comment: Continue fluoxetine and quetiapine. (5) Opioid use disorder Current Visit: Yes Status: Acute Code(s): F11.99 - OPIOID USE, UNSP WITH UNSPECIFIED OPIOID-INDUCED DISORDER SNOMED Code(s): 0327401 Comment: Continue home dose of suboxone. (6) DVT prophylaxis Current Visit: Yes Status: Acute Code(s): XPW6960 - SNOMED Code(s): 595558048 Comment: Ab (7) Full code status Current Visit: Yes Status: Acute Code(s): Z78.9 - OTHER SPECIFIED HEALTH STATUS SNOMED Code(s): 904750349
--- NOTE | 2019-10-11 16:06 | PN ---
Progress Note - Progress Note Date of Service: 10/11/19 Note: GASTROENTEROLOGY FOLLOW-UP IE/S: - Pain started last week. Located along left abdomen. No obvious change in bowel movements (chronic fluctuation between constipation and diarrhea). Mild improvement in pain since admission. Took Milk of Mg and Mg citrate over past 24 hours with 3 soft (non-bloody, +mucus) stools today. No change in pain. Some increase in pain after eating. O: VS WNL GEN: Mildly uncomfortable. PULM: Breathing comfortably. ABD: Soft, non-distended. Quite tender along left abdomen. No rebound tenderness or guarding. BMP w/o concerning values. No imaging since admission. A/P: 54yF w/ history of PE on Eliquis, DM on insulin c/b gastroparesis, GERD c/b esophagitis, opiate use disorder on Suboxone, IBS, who is admitted w/ severe L- sided abdominal pain. CT demonstrated "mild diffuse mucosal thickening in distal colon" suggestive of colitis. No significant change despite several days on antibiotics (now off) and bowel regimen. GI history notable for GERD (not well controlled) and chronic nausea (? diagnosis of gastroparesis). Also had prior diagnosis of "colitis" (?ischemic) at least once over past decade, although full details not available. Per Dr Fernando's consult note, patient had 2 cm polyp in 01/2018 for which FU colonoscopy was recommended in 1-1.5 years. This colonoscopy was attempted in 2018 but incomplete due to poor prep. Patient also reports that EGD in 06/2019 demonstrated "ulcers" in stomach and esophagitis. Etiology of current abdominal pain is not clear at this point. Patient is quite tender with light palpation over left abdomen (upper and lower). Lower GI tract seems to be most likely source given location of pain and CT findings. Ischemic colitis typically involves watershed area(s), which makes the location seen on CT a bit atypical (includes descending colon and recto-sigmoid). Infectious colitis less likely in absence of diarrhea, although I think checking stool studies is reasonable. Inflammatory colitis, such as UC, is important to include on differential. Diverticulitis unlikely given absence of significant diverticulosis in area of mucosal abnormality on CT. Severe constipation/fecal impaction unlikely given absence of improvement with several bowel movements today. - Send infectious stool studies - Recommend checking abdominal x-ray now given ongoing pain and significant tenderness. This should also rule-out large stool burden. - Change to clear diet given ongoing pain - If symptoms persist, then I would recommend flex sig tmrw (w/ enema prep). OK to continue Eliquis for diagnostic flex sig as patient is high risk to have anticoagulation held (PE earlier this year). Can try case w/ moderate sedation, although it might be challenging to obtain ideal sedation given Suboxone use. - Increase PPI to BID given known GERD w/ esophagitis and ongoing nausea with reflux symptoms. - Please obtain records from previous EGD/colon reports ([facility]) . Important to clarify as she may need repeat colonoscopy for follow-up of large polyp and repeat EGD to ensure resolution of gastric ulcer(s). This follow -up can likely be deferred to outpatient setting (depending on clinical course) . Gina Willson MD Gastroenterology
[2019-10-11] MEDS: Atorvastatin* 20 MG TAB PO SCH (23:01)
[2019-10-11] MEDS: QUEtiapine TAB* 25 MG PO SCH (23:03)
[2019-10-12] MEDS: Morphine INJ* 2 MG/ML 1 ML SYRINGE (TWO MG - NEW SYRINGE VERSION) IV PRN ×2 (01:04→07:46)
[2019-10-12] MEDS: Insulin LISPRO* 1 UNITS UNIT SUBCUT SCH ×4 (07:45→21:17)
[2019-10-12] MEDS: Magnesium Hydroxide LIQ* 30 ML UDC PO SCH ×2 (09:41→21:24)
[2019-10-12] MEDS: Topiramate TAB(*) 25 MG PO SCH ×2 (09:41→21:19)
[2019-10-12] MEDS: FLUoxetine CAP* 20 MG PO SCH (09:42)
[2019-10-12] MEDS: Pantoprazole TAB * 40 MG TAB PO SCH ×2 (09:42→21:19)
[2019-10-12] MEDS: Gabapentin CAP(*) 300 MG PO SCH ×4 (09:42→21:18)
[2019-10-12] MEDS: amLODIPine TAB* 5 MG PO SCH (09:43)
[2019-10-12] MEDS: Apixaban* 5 MG TAB PO SCH ×2 (09:43→21:19)
[2019-10-12] MEDS: Buprenorp/Nalox 8-2 MG FILM SL FILM SCH ×4 (09:44→21:20)
[2019-10-12] MEDS: Bethanechol TAB* 25 MG PO SCH ×4 (09:46→21:27)
[2019-10-12] MEDS: Insulin GLARGINE(*) 1 UNITS UNIT SUBCUT SCH ×2 (09:46→21:17)
[2019-10-12] MEDS ORDERED: Ondansetron INJ* 2 MG/ML VIAL ONE (14:45)
[2019-10-12] MEDS ORDERED: Midazolam* 1 MG/ML 10 ML VIAL (10 MG) ONE (14:45)
[2019-10-12] MEDS ORDERED: fentaNYL* 50 MCG/ML 2 ML VIAL (100 MCG VIAL) ONE (14:45)
--- NOTE | 2019-10-12 16:10 | PN ---
Progress Note - Progress Note Date of Service: 10/12/19 Note: GI Flex sig note Flex sig to 40. At 13-15cm, large near obstructing fecolith. This was removed over 40+ minutes with large snare, rath tooth forceps and when decreased in size and in rectum was able to digitally remove. About 4-5 cm. Remainder of colon visualized normal. No ischemic changes to about 40cm of sigmoid. Rec: Aggressive bowel regimen 2L golytely tonight. Would d/c on Amitza 24mcg BID Needs outpatient colon or followup with primary [employer]. Limit narcotics as much as possible Full liquids ok Chandler Montenegro DO 10/12/19 1600
[2019-10-12] MEDS ORDERED: PEG 3000 GI LAVAGE* 1 GALLON PO ONE (16:30)
--- NOTE | 2019-10-12 17:40 | PN ---
Subjective Date of Service: 10/12/19 Interval History: Pt is feeling poorly. She states her abdomen hurts,however she is lethargic after her procedure. Objective Active Medications: Amlodipine Besylate (Norvasc Tab*) 10 mg PO DAILY [facility] Last Admin: 10/12/19 09:43 Dose: 10 mg Apixaban (Eliquis*) 5 mg PO BID [facility] Last Admin: 10/12/19 09:43 Dose: 5 mg Atorvastatin Calcium (Lipitor*) 20 mg PO BEDTIME [facility] Last Admin: 10/11/19 23:01 Dose: 20 mg Bethanechol Chloride (Urecholine Tab*) 25 mg PO QID [facility] Last Admin: 10/12/19 16:00 Dose: Not Given Buprenorphine/Naloxone (Suboxone 8 Mg-2 Mg Sl Film) 1 each SL FILM TID [facility] Last Admin: 10/12/19 16:00 Dose: Not Given Cyclobenzaprine HCl (Flexeril Tab*) 5 mg PO TID PRN PRN Reason: SPASMS - MUSCLE Last Admin: 10/10/19 07:22 Dose: 5 mg Dextrose (Dextrose 50% Vial 50 Ml*) 25 ml IV PUSH .FOR FS < 60 - SS PRN PRN Reason: FS < 60 Fluoxetine HCl (Prozac Cap*) 40 mg PO DAILY [facility] Last Admin: 10/12/19 09:42 Dose: 40 mg Gabapentin (Neurontin Cap(*)) 600 mg PO TID [facility] Last Admin: 10/12/19 15:59 Dose: Not Given Insulin Glargine (Lantus(*)) 40 units SUBCUT BID [facility] Last Admin: 10/12/19 09:46 Dose: Not Given Insulin Human Lispro (Humalog*) 0 units SUBCUT ACHS [facility]; Protocol Last Admin: 10/12/19 11:26 Dose: Not Given Magnesium Hydroxide (Milk Of Magnesia Liq*) 30 ml PO BID [facility] Last Admin: 10/12/19 09:41 Dose: 30 ml Nicotine Polacrilex (Nicotine Gum*) 4 mg PO Q2H PRN PRN Reason: WITHDRAWAL - NICOTINE Pantoprazole Sodium (Protonix Tab*) 40 mg PO BID [facility] Last Admin: 10/12/19 09:42 Dose: 40 mg Promethazine HCl (Phenergan Tab*) 25 mg PO Q8H PRN PRN Reason: NAUSEA Last Admin: 10/11/19 04:06 Dose: 25 mg Quetiapine Fumarate (Seroquel Tab*) 25 mg PO BEDTIME [facility] Last Admin: 10/11/19 23:03 Dose: 25 mg Topiramate (Topamax(*)) 50 mg PO BID [facility] Last Admin: 10/12/19 09:41 Dose: 50 mg Vital Signs - 8 hr 10/12/19 10/12/19 10/12/19 09:42 11:07 11:15 Temperature 98.3 F Pulse Rate 88 Respiratory 16 18 20 Rate Blood Pressure 120/74 (mmHg) O2 Sat by Pulse 95 Oximetry 10/12/19 10/12/19 15:59 17:06 Temperature 97.8 F Pulse Rate 87 Respiratory 16 16 Rate Blood Pressure 103/65 (mmHg) O2 Sat by Pulse 99 Oximetry Oxygen Devices in Use Now: None Appearance: Middle aged female lying in bed, NAD Eyes: No Scleral Icterus Ears/Nose/Mouth/Throat: Mucous Membranes Moist Respiratory: Symmetrical Chest Expansion and Respiratory Effort, Clear to Auscultation Cardiovascular: NL Sounds; No Murmurs; No JVD, RRR, No Edema Abdominal: NL Sounds; No Tenderness; No Distention Extremities: No Clubbing, Cyanosis Skin: No Nodules or Sclerosis Neurological: - - lethargic Result Diagrams: 10/09/19 06:06 10/11/19 06:16 Assess/Plan/Problems-Billing Ms Simpson is a 54yo F with HTN, DM2 on insulin c/b neuropathy/gastroparesis, PE on Eliquis, GERD, MDD, h/o OUD on Suboxone, chronic LBP, presents with LLQ pain associated with nausea and diarrhea, found with colitis on CT. - Patient Problems (1) Colitis Current Visit: Yes Status: Acute Code(s): K52.9 - NONINFECTIVE GASTROENTERITIS AND COLITIS, UNSPECIFIED SNOMED Code(s): 67244544 Comment: Flexible sigmoidoscopy done this afternoon with large obstructing fecolith. ? stercoral colitis. I have discontinued the morphine. It has not seemed to improve her pain and is only contributing to her severe constipation. Start GoLytely tonight per GI. Discharge pt home tomorrow (?) on amitiza 24mcg per GI. Full liquid diet ordered. (2) Diabetes mellitus Current Visit: Yes Status: Acute Code(s): E11.9 - TYPE 2 DIABETES MELLITUS WITHOUT COMPLICATIONS SNOMED Code(s): 39950143 Comment: Blood sugars on good control today. Continue current insulin regimen -brent held this AM as she was NPO. (3) Hypertension Current Visit: Yes Status: Acute Code(s): I10 - ESSENTIAL (PRIMARY) HYPERTENSION SNOMED Code(s): 23086743 Comment: BP is controlled on amlodipine alone. Continue to monitor. (4) Mood disorder of depressed type Current Visit: Yes Status: Acute Code(s): F32.9 - MAJOR DEPRESSIVE DISORDER , SINGLE EPISODE, UNSPECIFIED SNOMED Code(s): 39515208 Comment: Continue fluoxetine and quetiapine. (5) Opioid use disorder Current Visit: Yes Status: Acute Code(s): F11.99 - OPIOID USE, UNSP WITH UNSPECIFIED OPIOID-INDUCED DISORDER SNOMED Code(s): 1514916 Comment: Continue home dose of suboxone. (6) DVT prophylaxis Current Visit: Yes Status: Acute Code(s): BKT2161 - SNOMED Code(s): 430406825 Comment: Ab (7) Full code status Current Visit: Yes Status: Acute Code(s): Z78.9 - OTHER SPECIFIED HEALTH STATUS SNOMED Code(s): 308233070
[2019-10-12] MEDS: Atorvastatin* 20 MG TAB PO SCH (21:20)
[2019-10-12] MEDS: QUEtiapine TAB* 25 MG PO SCH (21:20)
--- NOTE | 2019-10-13 00:12 | PRO ---
CC: Dr. Armen Goodman * FLEXIBLE SIGMOIDOSCOPY REPORT: DATE OF PROCEDURE: 10/12/19 - ROOM #442 INDICATION FOR PROCEDURE: Abdominal pain, abnormal CT scan. PROCEDURE PERFORMED: Flexible sigmoidoscopy with fecalith removal. MEDICATIONS GIVEN: Include: 1. 10 mg IV midazolam. 2. 50 mcg IV fentanyl. 3. 4 mg Zofran prior to the procedure. DESCRIPTION OF PROCEDURE: After the flexible sigmoidoscopy procedure including the risks, benefits, and alternatives with the risks not limited to perforation , surgery, missed lesions, and/or were explained to the patient, written informed consent was obtained. IV medication was given and a rectal exam was performed. The rectal vault was relatively empty and the rectal tone was appropriate. Next, the adult Olympus colonoscope was inserted into the patient' s rectum. About 12 cm up, there was a large near obstructing fecalith, was not even able to pass this with the scope; very hard in nature. I used a large cold snare to cut that up into piecemeal pieces, had difficulty with that and then switched to a rat tooth forceps to hollow out the core. I was unable to bring it back to the rectum in smaller pieces. I then used EGD scope to use additional rat tooth forceps to piecemeal it slightly further. At that point, the EGD scope was removed. Digital exam was done. I was able to palpable the fecalith and I removed it with success digitally. I then used the EGD scope to evaluate the rectum. No trauma was visualized. There was no bleeding or tears. The EGD scope was then advanced to about 35 to 40 cm into the sigmoid colon, small loop would form, so likely made it to mid sigmoid. I did not see any evidence of any ischemia or inflammation. In fact, the tissue was normal. The scope was then removed from the patient. She tolerated the procedure well and was returned to the recovery room in stable condition. IMPRESSION: 1. Complete flexible sigmoidoscopy with fecalith removal. 2. Otherwise normal flexible sigmoidoscopy. 3. Adequate prep for area visualized with the exception of fecalith. RECOMMENDATIONS: We will place the patient on full liquids tonight. In addition, we will give 2 L of GoLYTELY to make sure that we flush out the remainder of the colon. This may be responsible for the exacerbation of some of her abdominal discomfort. We will place the patient on Amitiza 24 mcg b.i.d. at discharge. 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 I believe her previous procedure was done by Eugenia. [id number]/[facility] #: [id number] KYLE
[2019-10-13] MEDS: Insulin LISPRO* 1 UNITS UNIT SUBCUT SCH ×3 (08:20→18:15)
[2019-10-13] MEDS: Bethanechol TAB* 25 MG PO SCH ×3 (09:03→18:15)
[2019-10-13] MEDS: Apixaban* 5 MG TAB PO SCH (09:04)
[2019-10-13] MEDS: Pantoprazole TAB * 40 MG TAB PO SCH (09:04)
[2019-10-13] MEDS: Topiramate TAB(*) 25 MG PO SCH (09:04)
[2019-10-13] MEDS: amLODIPine TAB* 5 MG PO SCH (09:04)
[2019-10-13] MEDS: Gabapentin CAP(*) 300 MG PO SCH ×2 (09:05→13:37)
[2019-10-13] MEDS: FLUoxetine CAP* 20 MG PO SCH (09:05)
[2019-10-13] MEDS: Buprenorp/Nalox 8-2 MG FILM SL FILM SCH ×2 (09:06→13:38)
[2019-10-13] MEDS: Magnesium Hydroxide LIQ* 30 ML UDC PO SCH (09:06)
[2019-10-13] MEDS: Insulin GLARGINE(*) 1 UNITS UNIT SUBCUT SCH (10:31)
[2019-10-13] MEDS ORDERED: Morphine INJ* 4 MG/ML 1 ML SYRINGE (NEW SYRINGE VERSION) IV PRN (15:13)
[2019-10-13] MEDS ORDERED: Vancomycin CAP* 125 MG CAP PO ONE (15:15)
--- NOTE | 2019-10-13 15:20 | PN ---
Subjective Date of Service: 10/13/19 Interval History: C/O sever abd pain, also had 13 BM since MN per pt. Requests MS 4 mg q 6 hr PRN. Tolerating full liquids but eats little. Objective Active Medications: Amlodipine Besylate (Norvasc Tab*) 10 mg PO DAILY [facility] Last Admin: 10/13/19 09:04 Dose: 10 mg Apixaban (Eliquis*) 5 mg PO BID [facility] Last Admin: 10/13/19 09:04 Dose: 5 mg Atorvastatin Calcium (Lipitor*) 20 mg PO BEDTIME [facility] Last Admin: 10/12/19 21:20 Dose: 20 mg Bethanechol Chloride (Urecholine Tab*) 25 mg PO QID [facility] Last Admin: 10/13/19 13:37 Dose: 25 mg Buprenorphine/Naloxone (Suboxone 8 Mg-2 Mg Sl Film) 1 each SL FILM TID [facility] Last Admin: 10/13/19 13:38 Dose: 1 each Cyclobenzaprine HCl (Flexeril Tab*) 5 mg PO TID PRN PRN Reason: SPASMS - MUSCLE Last Admin: 10/10/19 07:22 Dose: 5 mg Dextrose (Dextrose 50% Vial 50 Ml*) 25 ml IV PUSH .FOR FS < 60 - SS PRN PRN Reason: FS < 60 Fluoxetine HCl (Prozac Cap*) 40 mg PO DAILY [facility] Last Admin: 10/13/19 09:05 Dose: 40 mg Gabapentin (Neurontin Cap(*)) 600 mg PO TID [facility] Last Admin: 10/13/19 13:37 Dose: 600 mg Insulin Glargine (Lantus(*)) 40 units SUBCUT BID [facility] Last Admin: 10/13/19 10:31 Dose: 40 units Insulin Human Lispro (Humalog*) 0 units SUBCUT ACHS [facility]; Protocol Last Admin: 10/13/19 12:52 Dose: 1 units Magnesium Hydroxide (Milk Of Magnesia Liq*) 30 ml PO BID [facility] Last Admin: 10/13/19 09:06 Dose: Not Given Morphine Sulfate (Morphine Inj (Syringe))*) 4 mg IV Q6H PRN PRN Reason: PAIN - SEVERE Nicotine Polacrilex (Nicotine Gum*) 4 mg PO Q2H PRN PRN Reason: WITHDRAWAL - NICOTINE Pantoprazole Sodium (Protonix Tab*) 40 mg PO BID [facility] Last Admin: 10/13/19 09:04 Dose: 40 mg Promethazine HCl (Phenergan Tab*) 25 mg PO Q8H PRN PRN Reason: NAUSEA Last Admin: 10/11/19 04:06 Dose: 25 mg Quetiapine Fumarate (Seroquel Tab*) 25 mg PO BEDTIME [facility] Last Admin: 10/12/19 21:20 Dose: 25 mg Topiramate (Topamax(*)) 50 mg PO BID [facility] Last Admin: 10/13/19 09:04 Dose: 50 mg Vancomycin HCl (Vancomycin Cap*) 125 mg PO QID [facility] Vancomycin HCl (Vancomycin Cap*) 125 mg PO ONCE ONE Stop: 10/13/19 15:16 Vital Signs - 8 hr 10/13/19 10/13/19 10/13/19 07:15 08:00 09:05 Temperature 98 F Pulse Rate 74 Respiratory 16 16 18 Rate Blood Pressure 107/71 (mmHg) O2 Sat by Pulse 97 Oximetry 10/13/19 10/13/19 11:15 13:37 Temperature 98.5 F Pulse Rate 94 Respiratory 16 16 Rate Blood Pressure 117/71 (mmHg) O2 Sat by Pulse 97 Oximetry Oxygen Devices in Use Now: None Appearance: Alert, partly up in bed. In fair spirits. Looks comfortable at rest. Eyes: No Scleral Icterus Neck: NL Appearance and Movements; NL JVP, No Thyroid Enlargement, Masses Respiratory: Symmetrical Chest Expansion and Respiratory Effort, Clear to Auscultation Cardiovascular: NL Sounds; No Murmurs; No JVD, RRR, No Edema, - Abdominal: - - Obese, soft, very tender to light touch. Nl BS. Extremities: No Edema, No Clubbing, Cyanosis, - Skin: No Rash or Ulcers, No Nodules or Sclerosis, - Neurological: Alert and Oriented x 3, NL Sensation Result Diagrams: 10/09/19 06:06 10/11/19 06:16 Microbiology and Other Data: Microbiology 10/13/19 10:30 Stool Gross Appearance - Final Stool C. difficile DNA Amplification - Final 027 Presumptive NEGATIVE Toxigenic C.diff POSITIVE Assess/Plan/Problems-Billing Ms Simpson is a 54yo F with HTN, DM2 on insulin c/b neuropathy/gastroparesis, PE on Eliquis, GERD, MDD, h/o OUD on Suboxone, chronic LBP, presents with LLQ pain associated with nausea and diarrhea, found with colitis on CT. - Patient Problems (1) Colitis Current Visit: Yes Status: Acute Code(s): K52.9 - NONINFECTIVE GASTROENTERITIS AND COLITIS, UNSPECIFIED SNOMED Code(s): 62924080 Comment: Flexible sigmoidoscopy done 10/12 with large obstructing fecolith. There were no visible signs of colitis per Dr. Montenegro. Patient drank 1/2 gallon Golytely 10/12, much diarrhea since then. Re-start MS at pt request. If limited to q 6 hr and in combination with Suboxone may not be much of a problem. Start amitiza 10/13 PM. Continue full liquid diet. (2) Diabetes mellitus Current Visit: Yes Status: Acute Code(s): E11.9 - TYPE 2 DIABETES MELLITUS WITHOUT COMPLICATIONS SNOMED Code(s): 27074367 Comment: Continue current insulin regimen. (3) Hypertension Current Visit: Yes Status: Acute Code(s): I10 - ESSENTIAL (PRIMARY) HYPERTENSION SNOMED Code(s): 91355159 Comment: BP is controlled on amlodipine alone. (4) Mood disorder of depressed type Current Visit: Yes Status: Acute Code(s): F32.9 - MAJOR DEPRESSIVE DISORDER , SINGLE EPISODE, UNSPECIFIED SNOMED Code(s): 71096519 Comment: Continue fluoxetine and quetiapine. (5) Opioid use disorder Current Visit: Yes Status: Acute Code(s): F11.99 - OPIOID USE, UNSP WITH UNSPECIFIED OPIOID-INDUCED DISORDER SNOMED Code(s): 8863948 Comment: Continue home dose of suboxone.
[2019-10-13 16:28] VITALS: BP 127/81
[2019-10-13] MEDS ORDERED: Vancomycin CAP* 125 MG CAP PO SCH (17:00)
--- NOTE | 2019-10-13 17:05 | PN ---
Progress Note - Progress Note Date of Service: 10/13/19 Note: GI Follow up Note Patient seen and examined. Ambulating around room on arrival. States pain is better today. Had 10-13 movements overnight, intially 2 hard stools followed by liquid after golyte. No black or blood. No fever or chills. Tolerating diet. VS: 127/81, P-94, R-16, 97% RA Gen: alert, oriented x3, NAD HEENT: AT/NC, PERRLA, EOMI, No JVP CVS: [id number] Resp: cta b/l Abd: soft, mild ttp llq, epigastric, less with distraction, bs+ Ext: no c/c/e Lab; cdiff + A/P 1.) LLQ pain: large fecolith removed on flex sig 10/12. No evidence of colitis or psuedomembranes in area visualized. No inflammatory changes. She had diarrhea last night after golyte was given to clear remainder of stool. Doubt Cdiff but given colitis on initial imaging will RX with Vanco QID x14d. She needs to be on bowel regimen suspect more likely stercoral inflammation for her severe constipation. CT on admit showed solid stool throughout colon. Would d/c on amitza 24 BID. She will need a full colonoscopy with her primary GI. She follows with [facility] in [place]. Prior attempt per records had poor prep and she had a 2cm polyp 2 years ago needing close followup. Discussed on discharge needs to see them in 3-4 weeks. Would avoid opiates outside of her normal suboxone do not currently see indication and likely would exacerbate her bowel motility problem. 2.) Cdiff+ - likely false +, will rx out of caution Chandler Montenegro DO 10/13/19 [id number]
--- NOTE | 2019-10-13 17:22 | PN ---
Progress Note - Progress Note Date of Service: 10/13/19 Note: Time spent on discharge including exam of patient, discussion with patient, nurse, CM, Dr. Montenegro, leonorfiew of EHR and prep[aration of discharge documents is 50 minutes.
[2019-10-13] MEDS ORDERED: CMC:Lubiprostone 24 MCG CAP (NF) PO SCH (21:00)
--- NOTE | 2019-10-13 21:12 | DS ---
CC: Dr. Armen Goodman DISCHARGE SUMMARY: DATE OF ADMISSION: DATE OF DISCHARGE: 10/13/19 HISTORY OF PRESENT ILLNESS/HOSPITAL COURSE: This 54-year-old woman presented with left lower quadran t pain and nausea. The history is detailed in the admission note. The patient was started on pipera cillin and tazobactam for diagnosis of nonspecific colitis. She was continued on her Suboxone and ho me therapy as well as many of her usual medications. Her blood pressure medicines were held and she does not seem to require them any at this time. She underwent a colonoscopy on 10/12/19, which showed fecalith which required much effort to remove. There was no visible evidence of colitis. Her stool did test positive for C. difficile, but this is considered false positive as there were no clinical stigmata or symptoms that could be directly attr ibuted to C. difficile. The pain is most likely related to the colonic obstruction from her fecalith. Dr. Montenegro recommended she take Amitiza 24 mcg b.i.d. as long as she is taking the Suboxone. FINAL DIAGNOSES: 1. Obstipation. 2. Diabetes. 3. Hypertension. 4. Mood disorder, depressed type. 5. Opioid use disorder. DISCHARGE MEDICATIONS: 1. Lubiprostone 24 mcg b.i.d. 2. Gabapentin 600 mg t.i.d. 3. Promethazine 25 mg q.8 hours p.r.n. 4. Cyclobenzaprine 5 mg t.i.d. p.r.n. 5. Quetiapine 25 mg h.s. 6. Fluoxetine 40 mg daily. 7. Buprenorphine naloxone 8/2 sublingual film 3 times daily. 8. Nicotine gum 4 mg every 2 hours p.r.n. 9. Basaglar KwikPen 50 units b.i.d. 10. Apixaban 5 mg b.i.d. 11. Lispro insulin 10 units 3 times daily with meals. 12. Atorvastatin 20 mg h.s. 13. Amlodipine 10 mg daily. 14. Pantoprazole packet 40 mg daily. 15. Topiramate 50 mg b.i.d. 16. Bethanechol 25 mg q.i.d. CONDITION ON DISCHARGE: Improved. DISPOSITION ON DISCHARGE: Discharged home. [id number]/[facility] #: [id number]
== END 2019-10-13 18:20 | disposition home or self-care (01) | DRG 247 ==
LOC: ED 15:32 → MEDTELE 23:08
PROVIDERS: ADMIT Internal Medicine; ATTEND Internal Medicine
PROC: 0DCP8ZZ Extirpation of Matter from Rectum, Via Natural or Artificial Opening Endoscopic (ICD-10-PCS; principal; 2019-10-12)
DX: K56.41 Fecal impaction (principal); K59.09 Other constipation; E66.01 Morbid (severe) obesity due to excess calories; Z86.711 Personal history of pulmonary embolism; E11.9 Type 2 diabetes mellitus without complications; G43.909 Migraine, unspecified, not intractable, without status migrainosus; Z90.49 Acquired absence of other specified parts of digestive tract; E11.43 Type 2 diabetes mellitus with diabetic autonomic (poly)neuropathy; K31.84 Gastroparesis; Z90.710 Acquired absence of both cervix and uterus; Z88.2 Allergy status to sulfonamides; Z88.0 Allergy status to penicillin; Z88.8 Allergy status to other drugs, medicaments and biological substances; Z23 Encounter for immunization; K21.9 Gastro-esophageal reflux disease without esophagitis; F32.9 Major depressive disorder, single episode, unspecified; M54.5 Low back pain; G89.29 Other chronic pain; K57.30 Diverticulosis of large intestine without perforation or abscess without bleeding; I10 Essential (primary) hypertension; F11.90 Opioid use, unspecified, uncomplicated; E78.00 Pure hypercholesterolemia, unspecified; J44.9 Chronic obstructive pulmonary disease, unspecified; M19.90 Unspecified osteoarthritis, unspecified site; F41.9 Anxiety disorder, unspecified; F17.210 Nicotine dependence, cigarettes, uncomplicated; E78.5 Hyperlipidemia, unspecified; Z79.01 Long term (current) use of anticoagulants; Z79.899 Other long term (current) drug therapy; Z79.4 Long term (current) use of insulin
CPT/HCPCS: 36415; 74018; 74177; 80048; 80053; 81003; 83605; 83690; 83735; 84484; 85025; 85027; 85652; 86140; 87045; 87046; 87177; 87209; 87328; 87329; 87493; 87899; 90686; 93005; 93306; 96361; 96374; 96375; 99156; 99157; 99284; A9270-GY; J0696; J1170; J2250; J2270; J2405; J2543; J3010; J3475; Q9967

== ENCOUNTER 2019-12-03 12:12 | Emergency (ER) | payer OTHER ==
[2019-12-03] MEDS ORDERED: NS 0.9% 1000 ML** 1,000 ML IV ONE ×3 (12:48→13:44)
--- NOTE | 2019-12-03 12:51 | ED ---
Abdominal Pain/Female - HPI Summary HPI Summary: Patient is a 54-year-old female who presents emergency department for diffuse abdominal pain that started about 3 days ago. Patient states pain is constant and is progressively got worse. Associated symptoms of intermittent nausea and vomiting. Patient denies associated chest pain, shortness of breath, fever, constipation, diarrhea, urinary symptoms. Past history of cholecystectomy, diabetes, high blood pressure, pulmonary embolism. Symptoms are moderate in severity. No current modifying factors. - History of Current Complaint Chief Complaint: EDAbdPain Stated Complaint: VOMITING PER PT Time Seen by Provider: 12/03/19 12:27 Hx Obtained From: Patient Pain Intensity: 7 Allergies/Adverse Reactions: Allergies Allergy/AdvReac Type Severity Reaction Status Date / Time metoclopramide Allergy Unknown Unknown Verified 12/03/19 12:21 Reaction Details Sulfa (Sulfonamide Allergy Unknown Hives Verified 12/03/19 12:21 Antibiotics) Penicillins AdvReac Unknown Altered Verified 12/03/19 12:21 Mental Status PMH/Surg Hx/FS Hx/Imm Hx Previously Healthy: Yes Endocrine/Hematology History: Reports: Hx Diabetes Denies: Hx Anticoagulant Therapy, Hx Blood Disorders, Hx Blood Transfusions, Hx Bone Marrow Disease, Hx Systemic Lupus Erythematosus, Hx Sickle Cell Disease , Hx Thyroid Disease, Hx Anemia, Hx Unexplained Bleeding, Other Endocrine/ Hematological Disorders Cardiovascular History: Reports: 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, Hx Embolism, Hx Hypercholesterolemia, Hx Hypertension Denies: Hx Aneurysm, Hx Angina, Hx Angioplasty, Hx Auto Implanted Cardiovert Defib, Hx Cardiac Arrest, Hx Cardiomegaly, Hx Congenital Heart Disease, Hx Congestive Heart Failure, Hx Coronary Artery Disease, Hx Hypotension, Hx Pacemaker/ICD, Hx Peripheral Vascular Disease, Hx Rheumatic Fever, Hx Syncope, Hx Valvular Heart Disease, Other Cardiovascular Problems/Disorders Respiratory History: Reports: Hx Chronic Obstructive Pulmonary Disease (COPD), Hx Pulmonary Edema, Hx Seasonal Allergies Denies: Hx Asthma, Hx Bronchopulmonary Dysplasia, Hx Chronic Bronchitis, Hx Cystic Fibrosis, Hx Lung Cancer, Hx Pleural Effusion, Hx Pneumonia, Hx Pulmonary Embolism, Hx Sleep Apnea, Other Respiratory Problems/Disorders GI History: Reports: Hx Diverticulosis, Hx Gall Bladder Disease, Hx Gastroesophageal Reflux Disease, Hx Irritable Bowel, Hx Ulcer, Other GI Disorders - Gastroparesis Denies: Hx Cirrhosis, Hx Crohn's Disease, Hx Gastrointestinal Bleed, Hx Hiatal Hernia, Hx Jaundice, Hx Obstructive Bowel, Hx Ileostomy, Hx Pyloric Stenosis History: Denies: Hx Acute Renal Failure, Hx Benign Prostatic Hyperplasia, Hx Chronic Renal Failure, Hx Dialysis, Hx Kidney Infection, Hx Kidney Stones, Hx Renal Disease, Other Problems/Disorders Musculoskeletal History: Reports: Hx Arthritis, Hx Back Problems, Other Musculoskeletal History - sciatica Denies: Hx Bursitis, Hx Congenital Bone Abnormalities, Hx Fibromyalgia, Hx Gout, Hx Orthopedic Injury, Hx Osteoporosis, Hx Scoliosis, Hx Tendonitis Sensory History: Reports: Hx Cataracts, Hx Contacts or Glasses - READING GLASSES Denies: Hx Eye Injury, Hx Eye Prosthesis, Hx Glaucoma, Hx Legally Blind, Hx Macular Degeneration, Hx Vision Problem, Hx Deafness, Hx Hearing Aid, Hx Hearing Problem, Other Sensory Impairments Opthamlomology History: Reports: Hx Cataracts, Hx Contacts or Glasses - READING GLASSES Denies: Hx Eye Injury, Hx Eye Prosthesis, Hx Glaucoma, Hx Legally Blind, Hx Macular Degeneration, Hx Vision Problem, Other Sensory Impairments Neurological History: Reports: Hx Migraine Denies: Hx Dementia, Hx Developmental Delay, Hx Headaches, Hx Nerve Disease, Hx Seizures, Hx Spinal Cord Injury, Hx Transient Ischemic Attacks (TIA), Other Neuro Impairments/Disorders Psychiatric History: Reports: Hx Anxiety, Hx Depression Denies: Hx Attention Deficit Hyperactivity Disorder, Hx Autism, Hx Eating Disorder, Hx Oppositional Zullinger Disorder, Hx Panic Disorder, Hx Post Traumatic Stress Disorder, Hx Inpatient Treatment, Hx Community Mental Health Tx , Hx Schizophrenia, Hx Bipolar Disorder, Hx Suicide Attempt, Hx of Violent Episodes Against Others, Other Psychiatric Issues/Disorders - Cancer History Cancer Type, Location and Year: cervical Hx Hematologic Symptoms: No Hx Chemotherapy: No Hx Radiation Therapy: No Hx Palliative Cancer Treatment: No - Surgical History Surgery Procedure, Year, and Place: cholecystectomy and right knee surgery Hx Anesthesia Reactions: No Infectious Disease History: No Infectious Disease History: Denies: Hx Clostridium Difficile, Hx Hepatitis, Hx Human Immunodeficiency Virus (HIV), Hx of Known/Suspected MRSA, Hx Shingles, Hx Tuberculosis, Hx Known/ Suspected VRE, Hx Known/Suspected VRSA, History Other Infectious Disease, Traveled Outside the [place] in Last 30 Days - Family History Known Family History: Positive: Hypertension, Non-Contributory - Social History Occupation: Employed Full-time Lives: With Family Alcohol Use: None Substance Use Type: Reports: None Hx Tobacco Use: Yes Smoking Status (MU): Current Every Day Smoker Type: Cigarettes Amount Used/How Often: anywhere from 2 cigarettes to a pack a day Review of Systems Constitutional: Negative Negative: Fever Cardiovascular: Negative Negative: Palpitations, Chest Pain Respiratory: Negative Negative: Shortness Of Breath, Cough Positive: Abdominal Pain, Vomiting, Nausea. Negative: Diarrhea Genitourinary: Negative Negative: dysuria, flank pain Neurological: Negative All Other Systems Reviewed And Are Negative: Yes Physical Exam Triage Information Reviewed: Yes Vital Signs On Initial Exam: Initial Vitals Temp Pulse Resp BP Pulse Ox 97.5 F 136 16 154/111 97 12/03/19 12:19 12/03/19 12:19 12/03/19 12:19 12/03/19 12:19 12/03/19 12:19 Vital Signs Reviewed: Yes Procedures - Sedation Patient Received Moderate/Deep Sedation with Procedure: No Diagnostics - Vital Signs Vital Signs Temp Pulse Resp BP Pulse Ox 12/03/19 12:19 97.5 F 136 16 154/111 97 - Laboratory Result Diagrams: 12/03/19 13:15 12/03/19 13:15 Lab Statement: Any lab studies that have been ordered have been reviewed, and results considered in the medical decision making process. Abdominal Pain Fem Course/Dx - Course Course Of Treatment: Patient presenting with diffuse abdominal pain, nausea, vomiting times several days. Patient seen in the ER for similar symptoms. She is afebrile. Blood pressure and heart rate elevated. Patient was started on IV fluids and given pain medication. Labs and CT ordered for further evaluation. ECG done at 1257 shows a sinus tachycardia at 123bpm, normal axis, flipped t waves in lateral leads, no STEMI. Negative troponin. CBC unremarkable. CMP shows slight elevation in anion gap at 12. Glucose 429. Trace ketones in u/a without infection. CT per radiolgoy: IMPRESSION: Hepatic steatosis. Nonspecific thickening of the sigmoid colon. No other. masses or fluid collections are noted. Pt. given a total of 3 L NSS and HR has improved. Recheck glucose 281. Pt. notes she has not been using her insulin that last few days bc she has not been eating. Unclear of etiology of pain. Pt. feeling better and tolerating POS. Will dc home to [facility] with pcp tomorrow. To continue home meds as directed> Will return to er if sxs change or worsen. - Diagnoses Differential Diagnosis: Positive: Bowel Obstruction, Constipation, Renal Colic, Urinary Tract Infection Provider Diagnoses: Abdominal pain, Hyperglycemia Discharge ED - Sign-Out/Discharge Documenting (check all that apply): Patient Departure - Discharge Plan Condition: Improved Disposition: HOME Prescriptions: Ondansetron TAB* [Zofran 4 MG Tab*] 4 mg PO Q6H PRN #12 tab PRN Reason: Nausea Patient Education Materials: Abdominal Pain (ED), Diabetic Hyperglycemia (ED) Referrals: Armen Goodman MD [Primary Care Provider] - Additional Instructions: Please see your PCP in 2-3 days for recheck Increase fluids Zofran as directed for nausea Tylenol or Motrin for pain as directed Take your insulin and other medications daily as directed Return to ER if symptoms change or worsen - Billing Disposition and Condition Condition: IMPROVED Disposition: Home
[2019-12-03] MEDS ORDERED: Morphine 4 MG/ML VIAL (1 ml) 4 MG/ML VIAL IV ONE ×2 (13:02→15:43)
[2019-12-03 13:23] LABS: ABS Basophils 0.1 10^3/ul (0-0.2); ABS Eosinophils 0.1 10^3/ul (0-0.6); ABS Lymphocytes 1.7 10^3/ul (1.0-4.8); ABS Monocytes 0.2 10^3/ul (0-0.8); ABS Neutrophils 5.5 10^3/ul (1.5-7.7); Hematocrit 44 % (35-47); Lymphocyte % 22.5 %; Mean Corpuscular HGB Conc 34 g/dL (31-36); Mean Corpuscular Hemoglobin 30 pg (27-31); Mean Corpuscular Volume 87 fL (80-97); Mean Platelet Volume 9.8 fL (7.4-10.4); Nucleated Red Blood Cells % 0.1; Platelet Count 238 10^3/uL (150-450); Red Blood Count 5.08 10^6 /uL (3.70-4.87); Red Cell Distribution Width 14 % (10-15); White Blood Count 7.6 10^3/uL (3.5-10.8)
--- OUTSIDE RECORDS SUMMARY | 2019-12-03 13:23 | XMS REPORT | Summary of Care ---
:1965 Author Organization [facility] Address [address] [address] Care Team Providers Name Role Phone Armen Goodman MD Primary Care Provider Reason for Referral (Emergency) Status Reason Specialty Diagnoses / Procedures Referred By Contact Referred To Contact Rudi Mack MD [address] [address] Scheduling Instructions Reason for Consult: Ground-level fall yesterday, protocol T has rhabdomyolysis and pain in the right hip. Please evaluate for admission. Patient Background: Evie Simpson is a 54-y.o. female Reason for Visit Reason Comments Fall Hip Pain Auth/Cert Status Reason Specialty Diagnoses / Procedures Referred By Contact Referred To Contact Encounter Details Date Type Department Care Team Description 10/25/2019 - Hospital Encounter [facility] 6 Teena Lott MD [address] [address] Inpatient 10/29/2019 1 Viviana López MD [address] [id number] [id number] Luis Cruz MD [address] [address] [phone] Thomas Dumont MD [address] [address] Allergies Active Allergy Reactions Severity Noted Date Comments Penicillins Other 12/07/2016 "Pass out" Reglan Other High 12/22/2016 Panick Attack. Sulfa Antibiotics Hives 12/07/2016 documented as of this encounter (statuses as of 10/30/2019) Medications Medication Sig Dispensed Refills Start Date End Date Status polyethylene glycol Take 1 PKT by 7 Packet 0 07/30/2017 Active (MIRALAX) Oral Pack mouth DAILY. Buprenorphine Place under 0 Active HCl-Naloxone HCl tongue. (SUBOXONE) 8-2 MG Sublingual FILMIndications: takes 8-2 mg BID Insulin Glargine 100 Inject 40-60 12 Each 1 03/23/2018 Active UNIT/ML Subcutaneous Units beneath Solution the skin Pen-injectorIndicati TWICE DAILY. ons: Type 2 diabetes 60 units in mellitus with the am and 40 diabetic at night polyneuropathy, with long-term current use of insulin (HCC) Quetiapine Fumarate Take 1 Tab by 30 Tab 4 06/27/2018 Active (SEROQUEL) 50 MG mouth EVERY Oral TabIndications: BEDTIME Severe single NEEDED current episode of (difficulty major depressive sleeping). disorder, without psychotic features (HCC), Anxiety Fluoxetine HCl 40 MG Take 1 Cap by 30 Cap 2 06/27/2018 Active Oral CapIndications: mouth DAILY. Severe single current episode of major depressive disorder, without psychotic features (HCC), Anxiety Topiramate 50 MG Take 1 Tab by 60 Tab 5 06/27/2018 Active Oral TabIndications: mouth TWICE Anxiety, DAILY. Nonintractable G43.009 migraine, unspecified migraine type atorvastatin Take 1 Tab by 90 Tab 1 06/27/2018 Active (LIPITOR) 20 MG Oral mouth DAILY. TabIndications: Mixed hyperlipidemia promethazine Take 1 Tab by 12 Tab 0 06/27/2018 Active (PHENERGAN) 25 MG mouth EVERY Oral Tab EIGHT HOURS NEEDED for nausea for up to 12 doses. gabapentin Take 600 mg 0 Active (NEURONTIN) 300 MG by mouth Oral Cap THREE TIMES DAILY. sucralfate Take 1 Tab by 120 Tab 0 09/09/2018 Active (CARAFATE) 1 GM Oral mouth FOUR Tab TIMES DAILY - BEFORE MEALS & NIGHTLY. 30 minutes before eating apixaban (ELIQUIS) 5 Take by 0 Active MG Oral Tab mouth TWICE DAILY. bethanechol Take 1 Tab by 120 Tab 5 05/29/2019 Active (URECHOLINE, DUVOID) mouth FOUR 25 MG Oral TIMES DAILY. TabIndications: Gastroparesis pantoprazole Take 1 Tab by 30 Tab 5 05/29/2019 Active (PROTONIX) 40 MG mouth BEFORE Oral Tab EC BREAKFAST. cloNIDine (CATAPRES) Take 0.5 Tabs 60 Tab 0 10/29/2019 Active 0.1 MG Oral Tab by mouth TWICE DAILY. OXYcodone-acetaminop Take 1 Tab by 28 Tab 0 10/29/2019 Active hen (PERCOCET) 5-325 mouth EVERY MG Oral Tab EIGHT HOURS NEEDED (for severe pain). Max Daily Amount: 3 Tabs. Melatonin 5 MG Oral Take by 0 10/29/2019 Discontinued Tab mouth EVERY BEDTIME. lisinopril Take 1 Tab by 30 Tab 0 12/27/2018 10/29/2019 Discontinued (PRINIVIL, ZESTRIL) mouth DAILY. 10 MG Oral Tab cloNIDine (CATAPRES) Take 0.5 mg 0 10/29/2019 Discontinued 0.3 MG Oral Tab by mouth THREE TIMES DAILY. oxycodone, immediate Take 1 Tab by 21 Tab 0 10/29/2019 10/29/2019 Discontinued release, (OXY-IR) 15 mouth EVERY MG Oral Tab EIGHT HOURS NEEDED (for severe pain) for up to 7 days. Max Daily Amount: 45 mg. documented as of this encounter (statuses as of 10/30/2019) Active Problems Problem Noted Date Rhabdomyolysis 10/25/2019 Duodenal ulcer 07/28/2019 Ulcer of esophagus without bleeding 07/24/2019 Pulmonary fibrosis 05/29/2019 Fecal impaction 05/29/2019 Other chronic pancreatitis 05/29/2019 Severe single current episode of major depressive disorder, without 05/29/2019 psychotic features Severe sepsis with septic shock (CODE) 05/29/2019 Acute ischemia of large intestine 05/29/2019 Abdominal wall cellulitis 12/20/2018 Overview: First noticed 9 days ago, 3 spots on lower abdomen that were warm, red and hard. Was initially treated with doxycycline for 5 days, clindamycin for 4 days and two of the abscesses were lanced and packed . Presents with worsening pain and discomfort from abscesses. -CT shows cellulitis of abdominal wall. -IV Vancomycin started in ED. -Start Zosyn -Afebrile. -Blood cultures pending. Wound care and ID consults placed. 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 States she has not been taking this for the past week as per her instructions prior to scheduled EGD 12/20/18 Esophagitis with gastritis 09/09/2018 Abscess of left genital labia 09/07/2018 Grade I internal hemorrhoids 04/29/2018 Left upper quadrant pain 04/29/2018 Gastritis 04/29/2018 Other chest pain 04/28/2018 Gastroparesis due to DM 03/02/2018 Overview: Continue home bethanechol History of ischemic colitis 03/02/2018 History of cervical cancer 03/02/2018 Overview: s/p TAHBSO Insomnia 03/02/2018 DDD (degenerative disc disease), lumbosacral 03/02/2018 Osteoarthritis of multiple joints 03/02/2018 Blurry vision 03/01/2018 Depression 09/22/2017 Overview: Continue home Seroquel and Fluoxetine S/P laparoscopic appendectomy 08/05/2017 Lung nodule, solitary 05/26/2017 S/P thoracotomy 05/26/2017 Overview: S/p LEFT VATs, ELZA wedge resection Nondependent tobacco use disorder 02/01/2017 Mixed hyperlipidemia 01/22/2017 Overview: Continue home Lipitor Type 2 diabetes mellitus with diabetic polyneuropathy, with long-term 2016 current use of insulin Overview: Sliding scale ordered. Basal ordered 50 units am/pm Anxiety 01/22/2017 Gastroesophageal reflux disease 01/22/2017 Overview: Scheduled for upper EGD 12/20/18 for resolution of stomach ulcers. -Continue home protonix, carafate Essential hypertension 01/10/2017 Overview: Continue home Lisinopril. Stable at this time. Migraine 12/19/2016 Diabetic neuropathy documented as of this encounter (statuses as of 10/30/2019) Resolved Problems Problem Noted Date Resolved Date Nausea and vomiting 09/07/2018 12/20/2018 Colitis 04/28/2018 04/29/2018 Encounter for aftercare 03/02/2018 03/16/2018 Near syncope 02/27/2018 12/20/2018 Fall at home 02/27/2018 12/20/2018 Dehydration 02/27/2018 12/20/2018 Hypernatremia 02/27/2018 12/20/2018 Hypovolemic shock 11/10/2017 03/01/2018 Acute GI bleeding 11/10/2017 03/01/2018 Diarrhea associated with pseudomembranous colitis 11/10/2017 03/01/2018 ED (acute kidney injury) 11/10/2017 03/01/2018 Septic shock 11/10/2017 03/01/2018 LLQ abdominal pain 07/26/2017 03/01/2018 Acute appendicitis 07/22/2017 03/01/2018 Unresponsive episode 06/05/2017 11/10/2017 Accelerated hypertension 02/09/2017 11/10/2017 Abdominal pain 02/09/2017 03/01/2018 Encounter for smoking cessation counseling 02/01/2017 11/10/2017 RLQ abdominal pain 01/10/2017 2017 Type 2 diabetes mellitus with diabetic polyneuropathy 12/19/2016 03/06/2017 documented as of this encounter (statuses as of 10/30/2019) Immunizations Name Administration Dates Next Due Influenza (IM) Preservative Free 12/26/2018, 09/09/2018 (), 09/20/2017 PNEUMOCOCCAL POLYSACCHARIDE VACCINE 05/14/2017 documented as of this encounter Social History Tobacco Use Types Packs/Day Years Used Date Former Smoker Cigarettes 0.25 20 Quit: 02/07/2019 Smokeless Tobacco: Never Used Alcohol Use Drinks/Week oz/Week Comments No Social Isolation Answer Date Recorded In a typical week, how many times do you More than three times a week 2018 talk on the phone with family, friends, or neighbors? How often do you get together with friends More than three times a week 10/25 or relatives? How often do you attend baptist or Never 10/25/2019 oriental orthodox services? Do you belong to any clubs or No 10/25/2019 organizations such as baptist groups, unions, fraternal or athletic groups, or school groups? How often do you attend meetings of the Never 10/25/2019 clubs or organizations you belong to? Are you now , , , 10/25/2019 , never or living with a partner? Physical Activity Answer Date Recorded On average, how many days per week do you engage in moderate to 0 days 2018 strenuous exercise (like walking fast, running, jogging, dancing, swimming, biking, or other activities that cause a light or heavy sweat)? On average, how many minutes do you engage in exercise at this 0 min 2018 level? Stress Answer Date Recorded Do you feel stress - tense, restless, nervous, or Only a little 10/25/2019 anxious, or unable to sleep at night because your mind is troubled all the time - these days? Financial Resource Strain Answer Date Recorded How hard is it for you to pay for the very basics like Not hard at all 2018 food, housing, medical care, and heating? Intimate Partner Violence Answer Date Recorded Within the last year, have you been afraid of your partner or No 10/25/2019 ex-partner? Within the last year, have you been humiliated or emotionally No 10/25/2019 abused in other ways by your partner or ex-partner? Within the last year, have you been kicked, hit, slapped, or No 10/25/2019 otherwise physically hurt by your partner or ex-partner? Within the last year, have you been raped or forced to have any No 10/25/2019 kind of sexual activity by your partner or ex-partner? Food Insecurity Answer Date Recorded Within the past 12 months, you worried that your food would Never true 2018 run out before you got money to buy more. Within the past 12 months, the food you bought just didn't Never true 2018 last and you didn't have money to get more. Transportation Needs Answer Date Recorded In the past 12 months, has lack of transportation kept you from No 10/25/2019 medical appointments or from getting medications? In the past 12 months, has lack of transportation kept you from No 10/25/2019 meetings, work, or getting things needed for daily living? Sex Assigned at Date Recorded Not on file Job Start Date Occupation Industry Not on file Not on file Not on file Travel History Travel Start Travel End No recent travel history available. documented as of this encounter Last Filed Vital Signs Vital Sign Reading Time Taken Comments Blood Pressure 122/65 10/29/2019 7:49 AM EST Pulse 69 10/29/2019 7:49 AM EST Temperature 36.1 10/29/2019 7:49 AM C (97 EST F) Respiratory Rate 18 10/29/2019 7:49 AM EST Oxygen Saturation 97% 10/29/2019 7:49 AM EST Inhaled Oxygen Concentration - - Weight 67.9 kg (149 lb 11.2 oz) 10/28/2019 5:45 PM EST Height 154.9 cm (5' 1") 10/25/2019 5:07 PM EST Body Mass Index 28.29 10/25/2019 5:07 PM EST documented in this encounter Discharge Instructions Byron Ham RN - 10/29/2019Provider's Instructions Reason for Admission or Diagnosis:Rhabdomyolysis due to fall Goals:Patient to maintain functional ability. Activity/Restrictions: activity as tolerated Skin/Wound Care: Keep wound clean and dry Discharge Diet: Diabetic Diet Special Instructions: Follow up with PCP within one week of discharge . Hold Lisinopril and decrease clonidine dose to 0.5 mg BID Discharge Provider: Thomas Dumont MD Attending: Thomas Dumont MD Time: 10:03 Nurse's Instructions Problems to report to your Physician: Excessive pain or discomfort Fever > 100.5 degrees Difficulty breathing Increase or smell in wound drainage Skin/Wound Care: Skin intact on discharge: None Medical Equipment/Supplies to help you at home: none Help arranged for you Home Health/Receiving Agency: documented in this encounter Progress Notes Thomas Dumont MD - 10/28/2019 2:01 PM EST [place] [address] Internal Medicine Progress Note Date of Service: 10/28/2019 Patient: Evie Fountain #: [id number] Attending: THOMAS DUMONT MD ,MD Subjective: Patient was seen at bedside, no new complains Feeling better Objective: Alert, oriented x3 General: cooperative Heart: regular rate & rhythm Lungs: clear to auscultation and percussion Abd: soft, nontender, nondistended, no masses or organomegaly; Ext: no edema Neuro: no focal deficits Vitals: Blood pressure 116/67, pulse 76, temperature 97.5 F (36.4 C), temperature source Temporal, resp. rate 18, height 5' 1" (1.549 m), weight 149 lb 12.8 oz (67.9 kg), SpO2 97 %, not currently . I/O: Intake/Output Summary (Last 24 hours) at 10/28/2019 1401 Last data filed at 10/28/2019 1350 Gross per 24 hour Intake 900 ml Output Net 900 ml Relevant labs and Radiology Results: XR KNEE 4 OR MORE VIEWS RIGHT (STANDARD) Final Result Unremarkable right knee radiographs. No radiographic evidence of acute fracture. Signed by Leila Bejarano on 10/26/2019 11:[address] ABDOMEN PELVIS ANGIOGRAPHY RUNOFF Final Result 1. No acute findings. No acute hematoma. 2. Hepatic steatosis. THIS DOCUMENT HAS BEEN ELECTRONICALLY SIGNED BY RODRICK PAULA MD XR PELVIS 1 OR 2 VIEWS (STANDARD) Final Result No acute findings. THIS DOCUMENT HAS BEEN ELECTRONICALLY SIGNED BY RODRICK PAULA MD XR CHEST 1 VIEW Final Result No acute findings. THIS DOCUMENT HAS BEEN ELECTRONICALLY SIGNED BY RODRICK PAULA MD Assessment/Plan: Principal Problem: Rhabdomyolysis Active Problems: Mixed hyperlipidemia Type 2 diabetes mellitus with diabetic polyneuropathy, with long-term current use of insulin (HCC) Diabetic neuropathy (HCC) Depression Osteoarthritis of multiple joints Ulcer of esophagus without bleeding Traumatic rhabdomyolysis: Patient presented with fall. CT scan done did not show any injury and cleared by trauma service. CK trending down Continue with IV fluids History of PE: Continue with Eliquis Hyperlipidemia: Lipitor Depression: Fluoxetine and Seroquel Chronic neuropathy: Gabapentin Diabetes mellitus: Lantus and insulin sliding scale Hypertension: DC lisinopril and decrease the dose of clonidine as patient was hypotensive this AM GERD: Protonix and sucralfate DVT prophylaxis: Patient on Eliquis CODE STATUS: Full code Isolation Status: DVT Prophylaxis: Eliquis Skin Care needs: None Discharge planning/Disposition: Tomorrow Author: Thomas Dumont MD Thomas Garcia MD - 10/27/2019 2:56 PM EST [address] [address] Internal Medicine Progress Note Date of Service: 10/27/2019 Patient: Evie Fountain #: [id number] Attending: THOMAS DUMONT MD ,MD Subjective: Patient was seen at bedside, no new complains Objective: Alert, oriented x3 General: cooperative Heart: regular rate & rhythm Lungs: clear to auscultation and percussion Abd: soft, nontender, nondistended, no masses or organomegaly; Ext: no edema Neuro: no focal deficits Vitals: Blood pressure 125/67, pulse 82, temperature 99.3 F (37.4 C), temperature source Temporal, resp. rate 16, height 5' 1" (1.549 m), weight 151 lb 1.6 oz (68.5 kg), SpO2 97 %, not currently . I/O: Intake/Output Summary (Last 24 hours) at 10/27/2019 1456 Last data filed at 10/27/2019 1250 Gross per 24 hour Intake 3325 ml Output Net 3325 ml Relevant labs and Radiology Results: XR KNEE 4 OR MORE VIEWS RIGHT (STANDARD) Final Result Unremarkable right knee radiographs. No radiographic evidence of acute fracture. Signed by Leila Bejarano on 10/26/2019 11:[address] ABDOMEN PELVIS ANGIOGRAPHY RUNOFF Final Result 1. No acute findings. No acute hematoma. 2. Hepatic steatosis. THIS DOCUMENT HAS BEEN ELECTRONICALLY SIGNED BY RODRICK PAULA MD XR PELVIS 1 OR 2 VIEWS (STANDARD) Final Result No acute findings. THIS DOCUMENT HAS BEEN ELECTRONICALLY SIGNED BY RODRICK PAULA MD XR CHEST 1 VIEW Final Result No acute findings. THIS DOCUMENT HAS BEEN ELECTRONICALLY SIGNED BY RODRICK PAULA MD Assessment/Plan: Principal Problem: Rhabdomyolysis Active Problems: Mixed hyperlipidemia Type 2 diabetes mellitus with diabetic polyneuropathy, with long-term current use of insulin (HCC) Diabetic neuropathy (HCC) Depression Osteoarthritis of multiple joints Ulcer of esophagus without bleeding Traumatic rhabdomyolysis: Patient presented with fall. CT scan done did not show any injury and cleared by trauma service. CK trending down Continue with IV fluids History of PE: Continue with Eliquis Hyperlipidemia: Lipitor Depression: Fluoxetine and Seroquel Chronic neuropathy: Gabapentin Diabetes mellitus: Lantus and insulin sliding scale Hypertension: DC lisinopril and decrease the dose of clonidine as patient was hypotensive this AM GERD: Protonix and sucralfate DVT prophylaxis: Patient on Eliquis CODE STATUS: Full code Isolation Status: DVT Prophylaxis: Eliquis Skin Care needs: None Discharge planning/Disposition: Tomorrow Author: Thomas Dumont MD Thomas Garcia MD - 10/26/2019 2:00 PM EST [address] [place] [address] Internal Medicine Progress Note Date of Service: 10/26/2019 Patient: Evie Fountain #: [id number] Attending: THOMAS DUMONT MD ,MD Subjective: Patient was seen at bedside, no new complains Objective: Alert, oriented x3 General: cooperative Heart: regular rate & rhythm Lungs: clear to auscultation and percussion Abd: soft, nontender, nondistended, no masses or organomegaly; Ext: no edema Neuro: no focal deficits Vitals: Blood pressure 112/68, pulse 94, temperature 98.4 F (36.9 C), temperature source Temporal, resp. rate 16, height 5' 1" (1.549 m), weight 140 lb 8 oz (63.7 kg), SpO2 97 %, not currently . I/O: Intake/Output Summary (Last 24 hours) at 10/26/2019 1400 Last data filed at 10/26/2019 1315 Gross per 24 hour Intake 3053 ml Output Net 3053 ml Relevant labs and Radiology Results: XR KNEE 4 OR MORE VIEWS RIGHT (STANDARD) Final Result Unremarkable right knee radiographs. No radiographic evidence of acute fracture. Signed by Leila Bejarano on 10/26/2019 11:[address] ABDOMEN PELVIS ANGIOGRAPHY RUNOFF Final Result 1. No acute findings. No acute hematoma. 2. Hepatic steatosis. THIS DOCUMENT HAS BEEN ELECTRONICALLY SIGNED BY RODRICK PAULA MD XR PELVIS 1 OR 2 VIEWS (STANDARD) Final Result No acute findings. THIS DOCUMENT HAS BEEN ELECTRONICALLY SIGNED BY RODRICK PAULA MD XR CHEST 1 VIEW Final Result No acute findings. THIS DOCUMENT HAS BEEN ELECTRONICALLY SIGNED BY RODRICK PAULA MD Assessment/Plan: Principal Problem: Rhabdomyolysis Active Problems: Mixed hyperlipidemia Type 2 diabetes mellitus with diabetic polyneuropathy, with long-term current use of insulin (HCC) Diabetic neuropathy (HCC) Depression Osteoarthritis of multiple joints Ulcer of esophagus without bleeding Traumatic rhabdomyolysis: Patient presented with fall. CT scan done did not show any injury and cleared by trauma service. CK trending down Continue with IV fluids History of PE: Continue with Eliquis Hyperlipidemia: Lipitor Depression: Fluoxetine and Seroquel Chronic neuropathy: Gabapentin Diabetes mellitus: Lantus and insulin sliding scale Hypertension: DC lisinopril and decrease the dose of clonidine as patient was hypotensive this AM GERD: Protonix and sucralfate DVT prophylaxis: Patient on Eliquis CODE STATUS: Full code Isolation Status: DVT Prophylaxis: Eliquis Skin Care needs: None Discharge planning/Disposition: Tomorrow Author: Thomas Dumont MD documented in this encounter Plan of Treatment Health Maintenance Due Date Last Done Comments HIV SCREENING 1978 LIPID DISORDER SCREENING 1981 PAP SMEAR 1984 MAMMOGRAM (SCREENING) 2003 ZOSTER IMMUNIZATION SERIES 2013 (1 of 2) URINE MICROALBUMIN 01/01/2018 01/01/2017 PNEUMOCOCCAL 0-64 YRS (2 of 05/14/2018 05/14/2017 3 - PCV13) HEMOGLOBIN A1C 03/20/2019 12/20/2018, 03/01/2018, 11/10/2017, Additional history exists DEPRESSION SCREENING 06/27/2019 06/27/2018, 06/27/2018 FOOT EXAM 06/27/2019 06/27/2018, 06/27/2018, 06/27/2018, Additional history exists INFLUENZA VACCINE (#1) 2019 12/26/2018, 09/20/2017 Colonoscopy 07/27/2020 07/27/2019, 07/27/2019, 07/24/2019, Additional history exists Diabetic Eye Exam 08/31/2021 08/31/2019, 08/31/2019, 08/31/2019, Additional history exists HPV IMMUNIZATION SERIES Aged Out No longer eligible based on patient's age to complete this topic MENINGOCOCCAL VACCINE IMM Aged Out No longer eligible based on patient's age to complete this topic documented as of this encounter Goals Goal Patient Goal Associated Recent Patient-Stated? Author Type Problems Progress Lack of Barrier No Jennifer, insurance MD Viviana Note: This is an individualized goal for Evie Simpson: Our records indicate that you may not have health insurance. This can be a barrier to getting necessary medical care. Our business office may be able to help. Please call the [facility] at [phone] and schedule an appointment to evaluate your options. You may be eligible for a health insurance product which could help pay for your doctor's visits and medications. Blood Pressure < Blood Pressure 122/65 (10/29/2019 7:49 No Ceasar Leigh MD 140/90 AM EST) Note: This is an individualized treatment (blood pressure) goal for Evie Simpson: Displayed above (on the left) is your goal for blood pressure control. Your most recent blood pressure is also shown above, on the right. You should try to achieve blood pressures that are lower than your goal listed above (on the left). Depression screen (PHQ-9) Depression 21 (06/27/2018 8:53 PM No Viviana [place] MD total score < 5 EDT) Note: This is an individualized treatment (depression) goal for Evie Simpson: Displayed above is your goal for a depression screening (PHQ-9) score that would indicate good control of your depression. Glycohemoglobin A1c < 7.0 Diabetes 10.9 (12/20/2018 6:16 AM No Viviana Rodriguez MD EST) Note: This is an individualized treatment (diabetes control, HgbA1C) goal for Evie Simpson: Displayed above is your progress towards your HgbA1C goal. Your goal is shown above (on the left); your most recent HgbA1C is shown on the right. Note that lower numbers are better. Work with your Kennel Manager Dog Track General No Saleem Bueno MD Note: This is an individualized treatment (frequent ED use) goal for Evie Simpson: Please work with your Kennel Manager Dog Track, who will assist you in meeting your goals of care. Keep immunizations current Lifestyle Viviana Villavicencio MD Note: This is an individualized lifestyle goal for Evie Simpson: Please be sure to keep up-to-date on recommended immunizations. For example, this would include a yearly influenza vaccine. Immunization status can be seen by looking at the Health Maintenance sections of your [facility], Plan of Care, and any After Visit Summaries. Regular appointments with primary care provider Lifestyle No Saleem Bueno MD (PCP) Note: This is an individualized lifestyle goal for Evie Simpson: Please schedule regular visits with your primary care provider (PCP). Care provided in your PCP's office can help reduce your need for additional trips to the Emergency Room. Keep a regular sleep schedule Lifestyle No Viviana [place] MD Note: This is an individualized lifestyle goal for Evie Fanton: Please maintain a regular sleep schedule. This may help with some symptoms of depression. Weight loss vs. 18 mo Lifestyle 1.4 (10/28/2019 5:45 PM No Trenton Card RN max (lbs) >= 10 EST) Note: This is an individualized lifestyle goal for Evie Simpson: Your body mass index (BMI) is more than 30. You should lose weight. A reasonable starting goal is to lose 10 pounds. Displayed above is how many pounds you have lost thus far towards your 10 pound weight loss goal. Take all prescribed medications as directed Self-management Viviana Villavicencio MD Note: This is an individualized self-management goal for Evie Simpson: Please take all prescribed medications as directed. 1. Do not skip doses. If you cannot afford your medications, talk with your doctor. 2. Use a pill reminder system such as a pill box if needed. Your pharmacist can help you with this. 3. Contact your Pharmacy 5 days before your medication runs out. If you cannot take your medications for any reasons, talk with your doctor. 4. Please bring all of your medication bottles and inhalers (or a list of all your medications/inhalers) with you to every visit. Potential barriers to meeting all of your care plan goals will continue to be addressed on an ongoing basis. documented as of this encounter Procedures Procedure Name Priority Date/Time Associated Comments Diagnosis HC GLUCOSE, BY MONITOR Routine 10/29/2019 7:56 Results for this AM EST procedure are in the results section. COMPREHENSIVE METABOLIC Routine 10/29/2019 6:46 Results for this PANEL W/REFLEX AM EST procedure are in MAGNESIUM the results section. CREATINE KINASE STAT 10/29/2019 6:46 Results for this AM EST procedure are in the results section. CBC NO DIFFERENTIAL Routine 10/29/2019 6:46 Results for this AM EST procedure are in the results section. HC GLUCOSE, BY MONITOR Routine 10/28/2019 9:08 Results for this PM EST procedure are in the results section. HC GLUCOSE, BY MONITOR Routine 10/28/2019 4:40 Results for this PM EST procedure are in the results section. HC GLUCOSE, BY MONITOR Routine 10/28/2019 10:32 Results for this AM EST procedure are in the results section. HC GLUCOSE, BY MONITOR Routine 10/28/2019 8:00 Results for this AM EST procedure are in the results section. COMPREHENSIVE METABOLIC Routine 10/28/2019 4:28 Results for this PANEL W/REFLEX AM EST procedure are in MAGNESIUM the results section. CK MB FRACTION Routine 10/28/2019 4:28 Results for this AM EST procedure are in the results section. MAGNESIUM LEVEL Routine 10/28/2019 4:28 Results for this AM EST procedure are in the results section. CREATINE KINASE STAT 10/28/2019 4:28 Results for this AM EST procedure are in the results section. CBC NO DIFFERENTIAL Routine 10/28/2019 4:28 Results for this AM EST procedure are in the results section. HC GLUCOSE, BY MONITOR Routine 10/27/2019 9:09 Results for this PM EST procedure are in the results section. HC GLUCOSE, BY MONITOR Routine 10/27/2019 5:05 Results for this PM EST procedure are in the results section. HC GLUCOSE, BY MONITOR Routine 10/27/2019 12:02 Results for this PM EST procedure are in the results section. HC GLUCOSE, BY MONITOR Routine 10/27/2019 7:52 Results for this AM EST procedure are in the results section. COMPREHENSIVE METABOLIC Routine 10/27/2019 7:10 Results for this PANEL W/REFLEX AM EST procedure are in MAGNESIUM the results section. MAGNESIUM LEVEL Routine 10/27/2019 7:10 Results for this AM EST procedure are in the results section. CREATINE KINASE Routine 10/27/2019 7:10 Results for this AM EST procedure are in the results section. CBC NO DIFFERENTIAL Routine 10/27/2019 7:10 Results for this AM EST procedure are in the results section. HC GLUCOSE, BY MONITOR Routine 10/26/2019 9:41 Results for this PM EST procedure are in the results section. HC GLUCOSE, BY MONITOR Routine 10/26/2019 4:36 Results for this PM EST procedure are in the results section. HC GLUCOSE, BY MONITOR Routine 10/26/2019 11:30 Results for this AM EST procedure are in the results section. XR KNEE 4 OR MORE VIEWS Routine 10/26/2019 10:58 Results for this RIGHT (STANDARD) AM EST procedure are in the results section. HC GLUCOSE, BY MONITOR Routine 10/26/2019 7:20 Results for this AM EST procedure are in the results section. CBC WITH DIFFERENTIAL Routine 10/26/2019 5:42 Results for this AM EST procedure are in the results section. MYOGLOBIN, PLASMA STAT 10/26/2019 5:42 Results for this AM EST procedure are in the results section. CREATINE KINASE STAT 10/26/2019 5:42 Results for this AM EST procedure are in the results section. BASIC METABOLIC PANEL STAT 10/26/2019 5:42 Results for this AM EST procedure are in the results section. HC GLUCOSE, BY MONITOR Routine 10/25/2019 8:23 Results for this PM EST procedure are in the results section. MYOGLOBIN, PLASMA STAT 10/25/2019 4:20 Results for this PM EST procedure are in the results section. RAINBOW LAB HOLD TUBES STAT 10/25/2019 4:20 Results for this PM EST procedure are in the results section. RAINBOW DRAW GOLD TOP STAT 10/25/2019 4:20 PM EST RAINBOW DRAW LAVENDER STAT 10/25/2019 4:20 TOP PM EST LIPASE STAT 10/25/2019 4:20 Results for this PM EST procedure are in the results section. CREATINE KINASE STAT 10/25/2019 4:20 Results for this PM EST procedure are in the results section. CT ABDOMEN PELVIS STAT 10/25/2019 2:18 Results for this ANGIOGRAPHY RUNOFF PM EST procedure are in the results section. URINE MICROSCOPIC WITH STAT 10/25/2019 1:38 Results for this REFLEX CULTURE PM EST procedure are in the results section. URINALYSIS (LAB) WITH STAT 10/25/2019 1:38 Results for this REFLEX CULTURE PM EST procedure are in the results section. URINE DRUG SCREEN STAT 10/25/2019 1:38 Results for this PM EST procedure are in the results section. URINE CULTURE (C&S) STAT 10/25/2019 1:38 Results for this PM EST procedure are in the results section. XR PELVIS 1 OR 2 VIEWS STAT 10/25/2019 12:05 Results for this (STANDARD) PM EST procedure are in the results section. XR CHEST 1 VIEW STAT 10/25/2019 12:04 Results for this PM EST procedure are in the results section. CBC WITH DIFFERENTIAL STAT 10/25/2019 11:51 Results for this AM EST procedure are in the results section. MYOGLOBIN, PLASMA STAT 10/25/2019 11:51 Results for this AM EST procedure are in the results section. TYPE AND SCREEN STAT 10/25/2019 11:51 Results for this AM EST procedure are in the results section. CREATINE KINASE STAT 10/25/2019 11:51 Results for this AM EST procedure are in the results section. COMPREHENSIVE METABOLIC STAT 10/25/2019 11:51 Results for this PANEL AM EST procedure are in the results section. ALCOHOL LEVEL, MEDICAL STAT 10/25/2019 11:51 Results for this AM EST procedure are in the results section. PROTHROMBIN TIME STAT 10/25/2019 11:51 Results for this AM EST procedure are in the results section. PARTIAL THROMBOPLASTIN STAT 10/25/2019 11:51 Results for this TIME AM EST procedure are in the results section. documented in this encounter Results GLUCOSE (POCT) (10/29/2019 7:56 AM EST) Glucose POCT 83 70 - 99 mg/dl POINT OF CARE Result Comment: TESTING Performed at: [facility] POCT Rodo Garza MD, Laboratory Puller Through [address] [place] [address] Specimen Performing Organization Address [facility] [place] Phone Number POINT OF CARE TESTING CREATINE KINASE (10/29/2019 6:46 AM EST) CPK 547 (H) 30 - 135 U/L [facility] Specimen Blood - Blood specimen (specimen) Performing Organization Address City/[facility]/[place] Phone Number [facility] [address] [place] [address] [phone] COMPREHENSIVE METABOLIC PANEL W/REFLEX MAGNESIUM (10/29/2019 6:46 AM EST) Sodium 142 134 - 145 mmol/L [facility] Potassium 3.6 3.5 - 5.1 mmol/L [facility] Chloride 113 (H) 98 - 107 mmol/L [facility] CO2 19 (L) 22 - 30 mmol/L [facility] Calcium 9.0 8.3 - 10.1 mg/dl [facility] Albumin 3.3 (L) 3.5 - 5.0 g/dl [facility] BUN 13 7 - 17 mg/dl [facility] Creatinine 0.5 (L) 0.7 - 1.2 mg/dl [facility] Glucose 50 (LL) 70 - 99 mg/dl [facility] Total Protein 6.5 6.3 - 8.2 g/dl [facility] Total Bilirubin 0.1 0.0 - 1.1 MG/DL [facility] AST 40 15 - 46 U/L [facility] ALT 34 9 - 52 U/L [facility] Alkaline 72 40 - 150 U/L [facility] Phosphatase GROUP LABORATORY eGFR >60 See Interpretation [facility] Comment: Below ml/min/1.73ml GROUP Estimated GFR Interpretation: Sq LABORATORY Above 60ml/min/1.73m2 = Normal Renal Function 30-59 ml/min/1.73m2 = Stage 3 Chronic Kidney Disease 15-29 ml/min/1.73m2 = Stage 4 Chronic Kidney Disease Less than 15 ml/min/1.73m2 = Stage 5 Chronic Kidney Disease The GFR value is calculated using the Modification of Diet in Renal Disease ( MDRD) Study Equation which can be found at: https://www.kidney.org/content/sajh-hldmi-gscdgjyn BUN/Creatinine 26 (H) 6 - 22 RATIO [facility] Ratio GROUP LABORATORY Anion Gap 10 3 - 11 mmol/L [facility] A/G Ratio 1.0 0.8 - 2.0 ratio [facility] Specimen Blood - Blood specimen (specimen) Performing Organization Address City/State/Zipcode Phone Number [facility] [address] [facility] [place] [address] CBC NO DIFFERENTIAL (10/29/2019 6:46 AM EST) WBC Count 5.77Comment: 3.98 - 10.04 [facility] Methodology was K/uL GROUP LABORATORY changed 12/01/2018. Please note updated reference range and units. RBC Count 4.03 3.93 - 5.22 [facility] M/UL [facility] Hemoglobin 11.6 11.2 - 15.7 [facility] g/dL GROUP [facility]ORY Hematocrit 35.3 34.1 - 44.9 % [facility] MCV 87.6 79.4 - 94.8 [facility] FL GROUP [facility]ORY MCH 28.8 25.6 - 32.2 [facility] PG [facility]ORY MCHC 32.9 32.2 - 35.5 [facility] g/dL GROUP [facility]ORY Platelet Count 202 182 - 369 [facility] K/uL [facility] MPV 10.6 9.4 - 12.3 FL [facility] RDW 12.9 11.7 - 14.4 % [facility] Specimen Blood - Blood specimen (specimen) Performing Organization Address City/[facility]/[place] Phone Number [facility] [address] [place] [address] GLUCOSE (POCT) (10/28/2019 9:08 PM EST) Glucose POCT 128 (H) 70 - 99 mg/dl POINT OF CARE Result Comment: TESTING Performed at: [facility] POCT Rodo Garza MD, Laboratory Puller Through [address] [place] [address] Specimen Performing Organization Address City/[facility]/[place] Phone Number POINT OF CARE TESTING GLUCOSE (POCT) (10/28/2019 4:40 PM EST) Glucose POCT 89 70 - 99 mg/dl POINT OF CARE Result Comment: TESTING Performed at: [facility] POCT Rodo Garza MD, Laboratory Puller Through [address] [place] [address] Specimen Performing Organization Address City/[facility]/[place] Phone Number POINT OF CARE TESTING GLUCOSE (POCT) (10/28/2019 10:32 AM EST) Glucose POCT 133 (H) 70 - 99 mg/dl POINT OF CARE Result Comment: TESTING Performed at: [facility] POCT Rodo Garza MD, Laboratory Puller Through [address] [place] [address] Specimen Performing Organization Address City/[facility]/[place] Phone Number POINT OF CARE TESTING GLUCOSE (POCT) (10/28/2019 8:00 AM EST) Glucose POCT 60 (L) 70 - 99 mg/dl POINT OF CARE Result Comment: TESTING Performed at: [facility] POCT Rodo Garza MD, Laboratory Puller Through [address] [place] [address] Specimen Performing Organization Address City/[facility]/[place] Phone Number POINT OF CARE TESTING CREATINE KINASE (10/28/2019 4:28 AM EST) CPK 928 (H) 30 - 135 U/L [facility] Specimen Blood - Blood specimen (specimen) Performing Organization Address City/[facility]/[place] Phone Number [facility] [address] [place] [address] [phone] MAGNESIUM LEVEL (10/28/2019 4:28 AM EST) Magnesium 1.8 1.6 - 2.3 MG/DL [facility] Specimen Blood - Blood specimen (specimen) Performing Organization Address City/[facility]/[place] Phone Number [facility] [address] [place] [address] CK MB FRACTION (10/28/2019 4:28 AM EST) CK-MB 2.81 0.00 - 3.60 NG/ML [facility] Specimen Blood - Blood specimen (specimen) Performing Organization Address [facility]/[place] Phone Number [facility] [address] [place] [address] [phone] COMPREHENSIVE METABOLIC PANEL W/REFLEX MAGNESIUM (10/28/2019 4:28 AM EST) Sodium 141 134 - 145 mmol/L [facility] Potassium 3.4 (L) 3.5 - 5.1 mmol/L [facility] Chloride 115 (H) 98 - 107 mmol/L [facility] CO2 21 (L) 22 - 30 mmol/L [facility] Calcium 9.0 8.3 - 10.1 mg/dl [facility] Albumin 3.3 (L) 3.5 - 5.0 g/dl [facility] BUN 8 7 - 17 mg/dl [facility] Creatinine 0.6 (L) 0.7 - 1.2 mg/dl [facility] Glucose 69 (L) 70 - 99 mg/dl [facility] Total Protein 6.4 6.3 - 8.2 g/dl [facility] Total Bilirubin 0.1 0.0 - 1.1 MG/DL [facility] AST 53 (H) 15 - 46 U/L [facility] ALT 42 9 - 52 U/L [facility] Alkaline 77 40 - 150 U/L [facility] LABORATORY eGFR >60 See Interpretation [facility] Comment: Below ml/min/1.73ml GROUP Estimated GFR Interpretation: Sq LABORATORY Above 60ml/min/1.73m2 = Normal Renal Function 30-59 ml/min/1.73m2 = Stage 3 Chronic Kidney Disease 15-29 ml/min/1.73m2 = Stage 4 Chronic Kidney Disease Less than 15 ml/min/1.73m2 = Stage 5 Chronic Kidney Disease The GFR value is calculated using the Modification of Diet in Renal Disease ( MDRD) Study Equation which can be found at: https://www.kidney.org/content/dvgk-fnqhp-xmgvvzih BUN/Creatinine 13 6 - 22 RATIO [facility] Ratio GROUP LABORATORY Anion Gap 5 3 - 11 mmol/L [facility] A/G Ratio 1.1 0.8 - 2.0 ratio [facility] Specimen Blood - Blood specimen (specimen) Performing Organization Address [facility]/[place] Phone [facility] [address] [facility] [place] [id number] CBC NO DIFFERENTIAL (10/28/2019 4:28 AM EST) Pathologist [facility] WBC Count 4.78Comment: 3.98 - 10.04 [facility] Methodology was K/uL GROUP LAB[facility]ORY changed 12/01/2018. Please note updated reference range and units. RBC Count 3.98 3.93 - 5.22 [facility] M/UL [facility] Hemoglobin 11.5 11.2 - 15.7 [facility] g/dL GROUP [facility] Hematocrit 34.7 34.1 - 44.9 % [facility] MCV 87.2 79.4 - 94.8 [facility] FL [facility] MCH 28.9 25.6 - 32.2 [facility] PG [facility]ORY MCHC 33.1 32.2 - 35.5 [facility] g/dL GROUP [facility]ORY Platelet Count 179 (L) 182 - 369 [facility] K/uL [facility] MPV 11.0 9.4 - 12.3 FL [facility] RDW 12.9 11.7 - 14.4 % [facility] Specimen Blood - Blood specimen (specimen) Performing Organization Address [facility]/[place] Phone Number [facility] [address] [facility] [place] [address] GLUCOSE (POCT) (10/27/2019 9:09 PM EST) Glucose POCT 158 (H) 70 - 99 mg/dl POINT OF CARE Result Comment: TESTING Performed at: [facility] POCT Rodo Garza MD, Laboratory Puller Through [address] [place] [address] Specimen Performing Organization Address City/State/[place] Phone Number POINT OF CARE TESTING GLUCOSE (POCT) (10/27/2019 5:05 PM EST) Glucose POCT 129 (H) 70 - 99 mg/dl POINT OF CARE Result Comment: TESTING Performed at: [facility] POCT Rodo Garza MD, Laboratory Puller Through [address] [place] [address] Specimen Performing Organization Address City/[facility]/[place] Phone Number POINT OF CARE TESTING GLUCOSE (POCT) (10/27/2019 12:02 PM EST) Glucose POCT 129 (H) 70 - 99 mg/dl POINT OF CARE Result Comment: TESTING Performed at: [facility] POCT Rodo Garza MD, Laboratory Puller Through [address] [place] [address] Specimen Performing Organization Address City/[facility]/[place] Phone Number POINT OF CARE TESTING GLUCOSE (POCT) (10/27/2019 7:52 AM EST) Glucose POCT 65 (L) 70 - 99 mg/dl POINT OF CARE Result Comment: TESTING Performed at: [facility] POCT Rodo Garza MD, Laboratory Puller Through [address] [place] [address] Specimen Performing Organization Address City/[facility]/[place] Phone Number POINT OF CARE TESTING MAGNESIUM LEVEL (10/27/2019 7:10 AM EST) Magnesium 1.7 1.6 - 2.3 MG/DL [facility] Specimen Blood - Blood specimen (specimen) Performing Organization Address City/[facility]/[place] Phone Number [facility] [address] [place] [address] [phone] CREATINE KINASE (10/27/2019 7:10 AM EST) CPK 1,303 (H) 30 - 135 U/L [facility] Specimen Blood - Blood specimen (specimen) Performing Organization Address City/[facility]/[place] Phone Number [facility] [address] [place] [address] COMPREHENSIVE METABOLIC PANEL W/REFLEX MAGNESIUM (10/27/2019 7:10 AM EST) Sodium 140 134 - 145 mmol/L [facility] Potassium 3.4 (L) 3.5 - 5.1 mmol/L [facility] Chloride 112 (H) 98 - 107 mmol/L [facility] CO2 21 (L) 22 - 30 mmol/L [facility] Calcium 9.0 8.3 - 10.1 mg/dl [facility] Albumin 3.3 (L) 3.5 - 5.0 g/dl [facility] BUN 6 (L) 7 - 17 mg/dl [facility] Creatinine 0.5 (L) 0.7 - 1.2 mg/dl [facility] Glucose 65 (L) 70 - 99 mg/dl [facility] Total Protein 6.4 6.3 - 8.2 g/dl [facility] Total Bilirubin 0.2 0.0 - 1.1 MG/DL [facility] AST 72 (H) 15 - 46 U/L [facility] ALT 44 9 - 52 U/L [facility] Alkaline 84 40 - 150 U/L [facility]ORY eGFR >60 See Interpretation [facility] Comment: Below ml/min/1.73ml GROUP Estimated GFR Interpretation: Sq LABORATORY Above 60ml/min/1.73m2 = Normal Renal Function 30-59 ml/min/1.73m2 = Stage 3 Chronic Kidney Disease 15-29 ml/min/1.73m2 = Stage 4 Chronic Kidney Disease Less than 15 ml/min/1.73m2 = Stage 5 Chronic Kidney Disease The GFR value is calculated using the Modification of Diet in Renal Disease ( MDRD) Study Equation which can be found at: https://www.kidney.org/content/gnbo-lzdyt-yfvfvjmh BUN/Creatinine 12 6 - 22 RATIO [facility] LABORATORY Anion Gap 7 3 - 11 mmol/L [facility] A/G Ratio 1.1 0.8 - 2.0 ratio [facility] Specimen Blood - Blood specimen (specimen) Performing Organization Address City/State/Zipcode Phone Number [facility] [address] [place] [place] [address] CBC NO DIFFERENTIAL (10/27/2019 7:10 AM EST) WBC Count 6.02Comment: 3.98 - 10.04 [facility] Methodology was K/uL GROUP LAB[facility]ATORY changed 12/01/2018. Please note updated reference range and units. RBC Count 3.85 (L) 3.93 - 5.22 [facility] M/UL [facility] Hemoglobin 11.1 (L) 11.2 - 15.7 [facility] g/dL GROUP LAB[facility]ORY Hematocrit 34.1 34.1 - 44.9 % [facility] MCV 88.6 79.4 - 94.8 [facility] FL GROUP [facility] MCH 28.8 25.6 - 32.2 [facility] PG GROUP [facility] MCHC 32.6 32.2 - 35.5 [facility] g/dL GROUP [facility]ORY Platelet Count 169 (L) 182 - 369 [facility] K/uL [facility] MPV 10.8 9.4 - 12.3 FL [facility] RDW 13.1 11.7 - 14.4 % [facility] Specimen Blood - Blood specimen (specimen) Performing Organization Address [facility] [place] Phone Number [facility] [address] [place] [place] [address] GLUCOSE (POCT) (10/26/2019 9:41 PM EST) Glucose POCT 171 (H) 70 - 99 mg/dl POINT OF CARE Result Comment: TESTING Performed at: [facility] POCT Rodo Garza MD, Laboratory Puller Through [address] [place] [address] Specimen Performing Organization Address [facility]/[place] Phone Number POINT OF CARE TESTING GLUCOSE (POCT) (10/26/2019 4:36 PM EST) Glucose POCT 173 (H) 70 - 99 mg/dl POINT OF CARE Result Comment: TESTING Performed at: [facility] POCT Rodo Garza MD, Laboratory Puller Through [address] [place] [address] Specimen Performing Organization Address [facility]/[place] Phone Number POINT OF CARE TESTING GLUCOSE (POCT) (10/26/2019 11:30 AM EST) Glucose POCT 163 (H) 70 - 99 mg/dl POINT OF CARE Result Comment: TESTING Performed at: [facility] POCT Rodo Garza MD, Laboratory Puller Through [address] [place] [address] Specimen Performing Organization Address [facility] Phone Number POINT OF CARE TESTING XR KNEE 4 OR MORE VIEWS RIGHT (STANDARD) (10/26/2019 10:58 AM EST) Specimen Impressions Performed At Unremarkable right knee radiographs. No radiographic evidence of acute fracture. Signed by Leila Bejarano on 10/26/2019 11:30 AM Narrative Performed At Procedure(s): XR KNEE 4 OR MORE VIEWS RIGHT (STANDARD) Date of service: 10/26/2019 10:44 AM Provided clinical information: 54 years, Female, "Knee pain and fall" Procedure and materials: 5 views of the right knee Comparison studies: None. Observations: Side: Right knee: Bones: Intact with no displaced fracture or focal osseous destruction. Joints: Right knee joint space is well-preserved. Procedure Note Interface, Rad Results - 10/26/2019 11:32 AM EST Procedure(s): XR KNEE 4 OR MORE VIEWS RIGHT (STANDARD) Date of service: 10/26/2019 10:44 AM Provided clinical information: 54 years, Female, "Knee pain and fall" Procedure and materials: 5 views of the right knee Comparison studies: None. Observations: Side: Right knee: Bones: Intact with no displaced fracture or focal osseous destruction. Joints: Right knee joint space is well-preserved. IMPRESSION Unremarkable right knee radiographs. No radiographic evidence of acute fracture. Signed by Leila Bejarano on 10/26/2019 11:30 AM GLUCOSE (POCT) (10/26/2019 7:20 AM EST) Glucose POCT 70 70 - 99 mg/dl POINT OF CARE Result Comment: TESTING Performed at: [facility] POCT Rodo Garza MD, Laboratory Puller Through [address] [place] [address] Specimen Performing Organization Address [facility] Phone Number POINT OF CARE TESTING MYOGLOBIN (10/26/2019 5:42 AM EST) MYOGLOBIN, SERUM 359.4 (H) <=61.5 ng/ml [facility] Specimen Blood - Blood specimen (specimen) Performing Organization Address [facility] Phone Number [facility] [address] [place] [address] [phone] CREATINE KINASE (10/26/2019 5:42 AM EST) CPK 3,257 (H) 30 - 135 U/L [facility] Specimen Blood - Blood specimen (specimen) Performing Organization Address [facility]/[place] Phone Number [facility] [address] [place] [address] CBC WITH DIFFERENTIAL (10/26/2019 5:42 AM EST) WBC Count 5.15 3.98 - 10.04 K/uL [facility] RBC Count 3.76 (L) 3.93 - 5.22 M/UL [facility] Hemoglobin 11.0 (L) 11.2 - 15.7 g/dL [facility] Hematocrit 34.2 34.1 - 44.9 % [facility] MCV 91.0 79.4 - 94.8 FL [facility] MCH 29.3 25.6 - 32.2 PG [facility] MCHC 32.2 32.2 - 35.5 g/dL [facility] Platelet Count 144 (L) 182 - 369 K/uL [facility] MPV 10.6 9.4 - 12.3 FL [facility] RDW 13.3 11.7 - 14.4 % [facility] Neutrophil % 57.9 34.0 - 71.1 % [facility] Lymphocyte % 33.8 19.3 - 51.7 % [facility] Monocyte % 5.2 4.7 - 12.5 % [facility] Eosinophil % 2.3 0.7 - 5.8 % [facility] Basophil % 0.4 0.1 - 1.2 % [facility] nRBC % 0.0 0.0 - 0.2 % [facility] Neutrophil # 2.98 1.56 - 6.13 K/UL [facility] Lymphocyte # 1.74 1.18 - 3.74 K/UL [facility] Monocyte # 0.27 0.24 - 0.86 K/UL [facility] Eosinophil # 0.12 0.04 - 0.36 K/UL [facility] Basophil # 0.02 0.01 - 0.08 K/UL [facility] Immature Gran % 0.4 0.0 - 0.4 % [facility] Immature Gran # 0.02 0.00 - 0.03 K/uL [facility] NRBC # 0.00 0.00 - 0.12 K/uL [facility] Specimen Blood - Blood specimen (specimen) Performing Organization Address City/State/Zipcode Phone Number [facility] [address] [facility] [place] [address] BASIC METABOLIC PANEL (10/26/2019 5:42 AM EST) Glucose 90 70 - 99 mg/dl [facility] BUN 13 7 - 17 mg/dl [facility] Creatinine 0.4 (L) 0.7 - 1.2 mg/dl [facility] Sodium 141 134 - 145 mmol/L [facility] Potassium 4.0 3.5 - 5.1 mmol/L [facility] Chloride 115 (H) 98 - 107 mmol/L [facility] CO2 20 (L) 22 - 30 mmol/L [facility] Calcium 8.7 8.3 - 10.1 mg/dl [facility] eGFR >60 See Interpretation [facility] Comment: Below ml/min/1.73ml [facility] Estimated GFR Interpretation: LABORATORY Above 60ml/min/1.73m2 = Normal Renal Function 30-59 ml/min/1.73m2 = Stage 3 Chronic Kidney Disease 15-29 ml/min/1.73m2 = Stage 4 Chronic Kidney Disease Less than 15 ml/min/1.73m2 = Stage 5 Chronic Kidney Disease The GFR value is calculated using the Modification of Diet in Renal Disease ( MDRD) Study Equation which can be found at: https://www.kidney.org/content/phhj-audor-rqliyfto BUN/Creatinine 33 (H) 6 - 22 [facility]AT[facility] LABORATORY Anion Gap 6 3 - 11 mmol/L [facility] Specimen Blood - Blood specimen (specimen) Performing Organization Address [facility] Phone Number [facility] [address] [place] [address] [phone] GLUCOSE (POCT) (10/25/2019 8:23 PM EST) Glucose POCT 166 (H) 70 - 99 mg/dl POINT OF CARE Result Comment: TESTING Performed at: [facility] POCT Rodo Garza MD, Laboratory Puller Through [address] [place] [address] Specimen Performing Organization Address [facility] Phone Number POINT OF CARE TESTING RAINBOW DRAW LAVENDER TOP (10/25/2019 4:20 PM EST) Specimen Blood - Blood specimen (specimen) Performing Organization Address [facility] Phone Number [facility] [address] [place] [address] RAINBOW DRAW GOLD TOP (10/25/2019 4:20 PM EST) Specimen Blood - Blood specimen (specimen) Performing Organization Address [facility] Phone Number [facility] [address] [place] [address] LIPASE (10/25/2019 4:20 PM EST) Lipase 89 23 - 300 U/L [facility] Specimen Blood - Blood specimen (specimen) Performing Organization Address [facility]/[place] Phone Number [facility] [address] [place] [address] [phone] MYOGLOBIN (10/25/2019 4:20 PM EST) MYOGLOBIN, SERUM 1,592.0 (H) <=61.5 ng/ml [facility] Specimen Blood - Blood specimen (specimen) Performing Organization Address [facility] Phone Number [facility] [address] [place] [address] CREATINE KINASE (10/25/2019 4:20 PM EST) CPK 5,626 (H) 30 - 135 U/L [facility] Specimen Blood - Blood specimen (specimen) Performing Organization Address City/State/Zipcode Phone Number [facility] [address] [place] [place] [facility] [phone] CT ABDOMEN PELVIS ANGIOGRAPHY RUNOFF (10/25/2019 2:18 PM EST) Specimen Impressions Performed At 1. No acute findings. No acute hematoma. 2. Hepatic steatosis. THIS DOCUMENT HAS BEEN ELECTRONICALLY SIGNED BY RODRICK PAULA MD Narrative Performed At PROCEDURE INFORMATION: Exam: CTA Angiogram of the Abdominal Aorta and Bilateral Lower Extremities (Run-off) With IV Contrast Exam date and time: 10/25/2019 1:09 PM Age: 54 years old Clinical history: Indication for study->significant pain right thigh/hip area post trauma rule out hematoma and active bleeding. From major vessel. TECHNIQUE: Imaging protocol: CT angiogram of the abdominal aorta, pelvis and bilateral lower extremities with IV iodinated contrast. 3D rendering: MIP reconstructed images were created and reviewed. Radiation optimization: All CT scans at this facility use at least one of these dose optimization techniques: automated exposure control; mA and/or kV adjustment per patient size (includes targeted exams where dose is matched to clinical indication); or iterative reconstruction. COMPARISON: CT ABDOMEN PELVIS ANGIO MESENTERIC ISCHEMIA 11/12/2017 6:52 PM FINDINGS: Aorta: There are atherosclerotic vascular calcifications of the aortoiliac system. Celiac trunk and mesenteric arteries: No occlusion or significant stenosis. Renal arteries: No occlusion or significant stenosis. Right iliac arteries: No occlusion or significant stenosis. Right femoral/popliteal arteries: No occlusion or significant stenosis. Right infrapopliteal arteries: No occlusion or significant stenosis. Left iliac arteries: No occlusion or significant stenosis. Left femoral/popliteal arteries: No occlusion or significant stenosis. Left infrapopliteal arteries: No occlusion or significant stenosis. Lungs: Mild bibasilar dependent change/atelectasis. Liver: There is diffuse hypoattenuation of the liver parenchyma, compatible with hepatic steatosis. Gallbladder and bile ducts: Surgical clips from prior cholecystectomy. Pancreas: Unremarkable. No mass. No ductal dilation. Spleen: Normal. No splenomegaly. Adrenals: Normal. No mass. Kidneys and ureters: Normal. No mass. Stomach and bowel: Unremarkable. No obstruction. No mucosal thickening. Appendix: No evidence of appendicitis. Bladder: Unremarkable. No mass. Reproductive: Unremarkable as visualized. Intraperitoneal space: Unremarkable. No free air. No significant fluid collection. Lymph nodes: No lymphadenopathy. Bones/joints: No acute fracture. No dislocation. Soft tissues: Unremarkable. No focal hematoma. Procedure Note Interface, Rad Results - 10/25/2019 2:49 PM EST PROCEDURE INFORMATION: Exam: CTA Angiogram of the Abdominal Aorta and Bilateral Lower Extremities (Run-off) With IV Contrast Exam date and time: 10/25/2019 1:09 PM Age: 54 years old Clinical history: Indication for study->significant pain right thigh/hip area post trauma rule out hematoma and active bleeding. From major vessel. TECHNIQUE: Imaging protocol: CT angiogram of the abdominal aorta, pelvis and bilateral lower extremities with IV iodinated contrast. 3D rendering: MIP reconstructed images were created and reviewed. Radiation optimization: All CT scans at this facility use at least one of these dose optimization techniques: automated exposure control; mA and/or kV adjustment per patient size (includes targeted exams where dose is matched to clinical indication); or iterative reconstruction. COMPARISON: CT ABDOMEN PELVIS ANGIO MESENTERIC ISCHEMIA 11/12/2017 6:52 PM FINDINGS: Aorta: There are atherosclerotic vascular calcifications of the aortoiliac system. Celiac trunk and mesenteric arteries: No occlusion or significant stenosis. Renal arteries: No occlusion or significant stenosis. Right iliac arteries: No occlusion or significant stenosis. Right femoral/popliteal arteries: No occlusion or significant stenosis. Right infrapopliteal arteries: No occlusion or significant stenosis. Left iliac arteries: No occlusion or significant stenosis. Left femoral/popliteal arteries: No occlusion or significant stenosis. Left infrapopliteal arteries: No occlusion or significant stenosis. Lungs: Mild bibasilar dependent change/atelectasis. Liver: There is diffuse hypoattenuation of the liver parenchyma, compatible with hepatic steatosis. Gallbladder and bile ducts: Surgical clips from prior cholecystectomy. Pancreas: Unremarkable. No mass. No ductal dilation. Spleen: Normal. No splenomegaly. Adrenals: Normal. No mass. Kidneys and ureters: Normal. No mass. Stomach and bowel: Unremarkable. No obstruction. No mucosal thickening. Appendix: No evidence of appendicitis. Bladder: Unremarkable. No mass. Reproductive: Unremarkable as visualized. Intraperitoneal space: Unremarkable. No free air. No significant fluid collection. Lymph nodes: No lymphadenopathy. Bones/joints: No acute fracture. No dislocation. Soft tissues: Unremarkable. No focal hematoma. IMPRESSION 1. No acute findings. No acute hematoma. 2. Hepatic steatosis. THIS DOCUMENT HAS BEEN ELECTRONICALLY SIGNED BY RODRICK PAULA MD URINE CULTURE (C&S) (10/25/2019 1:38 PM EST) Urine Culture 50,000 CFU/mL [facility] Staphylococcus sp, GROUP LAB[facility]ATORY coag. Neg (A) Specimen Urine - Urine specimen obtained by clean catch procedure (specimen) Narrative Performed At Pyuria accompanying asymptomatic bacteriuria is not [facility] an indication for antimicrobial treatment. Exceptions include if the patient is , immunocompromised, undergoing urologic procedure or transurethral resection of the prostate. Organism Antibiotic Method Susceptibility Staphylococcus sp, coag. Gentamicin KRISTOFER <=0.5 ug/ml: Sensitive Neg Staphylococcus sp, coag. Nitrofurantoin KRISTOFER <=16 ug/ml: Sensitive Neg Staphylococcus sp, coag. Oxacillin KRISTOFER >=4 ug/ml: Resistant Neg Staphylococcus sp, coag. Trimethoprim + KRISTOFER 160 ug/ml: Resistant Neg Sulfamethoxazole Staphylococcus sp, coag. Vancomycin KRISTOFER 2 ug/ml: Sensitive Neg Performing Organization Address [facility] Phone Number [facility] [address] [place] [address] URINE MICROSCOPIC WITH REFLEX CULTURE (10/25/2019 1:38 PM EST) Urine Wbc FEW 0 - 5 /HPF [facility] Urine Epithelial 1+ None Seen /HPF [facility] Urine Bacteria 3+ (A) None Seen /HPF [facility] Amorphous Present None Seen [facility] Urine Mucus Present (A) Negative [facility] Specimen Urine - Urine specimen obtained by clean catch procedure (specimen) Performing Organization Address [facility] Phone Number [facility] [address] [place] [address] URINALYSIS (LAB) WITH REFLEX CULTURE (10/25/2019 1:38 PM EST) Urine Color Yellow Yellow [facility] Urine Appearance Clear Clear [facility] Urine Glucose 250 (A) Negative mg/dl [facility] Urine Bilirubin Negative Negative [facility] Urine Ketones Negative Negative [facility] Urine Specific >1.030 (H) 1.005 - 1.030 [facility] Urine Blood Moderate (A) Negative [facility] Urine Ph 5.5 5.0 - 8.0 [facility] Urine Protein Negative Negative mg/dl [facility] Urine Urobilinogen 0.2 0.2 - 1.0 [facility] E.U./DL [facility] Urine Nitrite Negative Negative [facility] Urine Leukocytes Negative Negative [facility] Specimen Urine - Urine specimen obtained by clean catch procedure (specimen) Performing Organization Address City/[facility] Phone Number [facility] [address] [place] [address] [phone] URINE DRUG SCREEN (10/25/2019 1:38 PM EST) Amphetamines Negative Negative [facility] Barbiturates Negative Negative [facility] Benzodiazepine Negative Negative [facility] Cannabinoids Negative Negative [facility] Cocaine Negative Negative [facility] Methadone Negative Negative [facility] Opiates Positive (A) Negative [facility] Oxycodone Negative Negative [facility] Phencyclidine Negative Negative [facility] Propoxyphene Negative Negative [facility] Specimen Urine - Urine specimen obtained by clean catch procedure (specimen) Narrative Performed At Drug Name [facility] Cut-off Level Amphetamine (AMP/METH) 1000 ng/ml Barbiturates (YASMINE) 200 ng/ml Benzodiazepines (LINDA) 200 ng/ml Cannabinoids (THC) 50 ng/ml Cocaine (RAMYA) 300 ng/ml Methadone (MTD) 300 ng/ml Opiates (OPI) 300 ng/ml Oxycodone (OXY) 100 ng/ml Phencyclidine (PCP) 25 ng/ml Propoxyphene (PPX) 300 ng/ml Test results from this drug screen are to be used for medical purposes only. If positive, the sample is presumed to contain detectable drug concentrations equal to or greater than the cut-off concentrations listed above. A positive result indicates the presence of the drug or drug metabolite and does not indicate the level of intoxication or urinary concentration. Confirmation is available upon request to [facility]. Request for confirmation must be made within 5 days of the drug screen result. Performing Organization Address City/State/Zipcode Phone Number [facility] [address] [place] [address] [phone] XR PELVIS 1 OR 2 VIEWS (STANDARD) (10/25/2019 12:05 PM EST) Specimen Impressions Performed At No acute findings. THIS DOCUMENT HAS BEEN ELECTRONICALLY SIGNED BY RODRICK PAULA MD Narrative Performed At PROCEDURE INFORMATION: Exam: XR Pelvis Exam date and time: 10/25/2019 11:53 AM Age: 54 years old Clinical history: Indication for study->portable pelvis, trauma yesterday pelvis is bound. Tachycardic, hypoxic TECHNIQUE: Imaging protocol: XR pelvis. Views: 1 or 2 view. COMPARISON: No relevant prior studies available. FINDINGS: Bones/joints: Unremarkable. No acute fracture. Soft tissues: Surgical clips noted in the pelvis. Procedure Note Interface, Rad Results - 10/25/2019 12:23 PM EST PROCEDURE INFORMATION: Exam: XR Pelvis Exam date and time: 10/25/2019 11:53 AM Age: 54 years old Clinical history: Indication for study->portable pelvis, trauma yesterday pelvis is bound. Tachycardic, hypoxic TECHNIQUE: Imaging protocol: XR pelvis. Views: 1 or 2 view. COMPARISON: No relevant prior studies available. FINDINGS: Bones/joints: Unremarkable. No acute fracture. Soft tissues: Surgical clips noted in the pelvis. IMPRESSION No acute findings. THIS DOCUMENT HAS BEEN ELECTRONICALLY SIGNED BY RODRICK PAULA MD XR CHEST 1 VIEW (10/25/2019 12:04 PM EST) Specimen Impressions Performed At No acute findings. THIS DOCUMENT HAS BEEN ELECTRONICALLY SIGNED BY RODRICK PAULA MD Narrative Performed At PROCEDURE INFORMATION: Exam: XR Chest, 1 View Exam date and time: 10/25/2019 11:53 AM Age: 54 years old Clinical history: Indication for study->protocol t, hypoxic TECHNIQUE: Imaging protocol: XR of the chest Views: 1 view. COMPARISON: CR XR ABDOMEN SERIES W PA CHEST (STANDARD) 07/24/2019 12:44 PM FINDINGS: Lungs: Unremarkable. No consolidation. Pleural space: Unremarkable. No pleural effusion. No pneumothorax. Heart/Mediastinum: Unremarkable. No cardiomegaly. Bones/joints: Unremarkable. Procedure Note Interface, Rad Results - 10/25/2019 12:21 PM EST PROCEDURE INFORMATION: Exam: XR Chest, 1 View Exam date and time: 10/25/2019 11:53 AM Age: 54 years old Clinical history: Indication for study->protocol t, hypoxic TECHNIQUE: Imaging protocol: XR of the chest Views: 1 view. COMPARISON: CR XR ABDOMEN SERIES W PA CHEST (STANDARD) 07/24/2019 12:44 PM FINDINGS: Lungs: Unremarkable. No consolidation. Pleural space: Unremarkable. No pleural effusion. No pneumothorax. Heart/Mediastinum: Unremarkable. No cardiomegaly. Bones/joints: Unremarkable. IMPRESSION No acute findings. THIS DOCUMENT HAS BEEN ELECTRONICALLY SIGNED BY RODRICK PAULA MD MYOGLOBIN (10/25/2019 11:51 AM EST) MYOGLOBIN, SERUM 3,173.0 (H) <=61.5 ng/ml [facility] Specimen Blood - Blood specimen (specimen) Performing Organization Address [facility] Phone Number [facility] [address] [place], [place] [id number] CREATINE KINASE (10/25/2019 11:51 AM EST) CPK 3,508 (H) 30 - 135 U/L [facility] Specimen Blood - Blood specimen (specimen) Performing Organization Address [facility] Phone Number [facility] [address] [place] [address] PARTIAL THROMBOPLASTIN TIME (10/25/2019 11:51 AM EST) PTT 31.2Comment: 21.3 - 35.9 SEC [facility] Reference range [facility] updated 09/19/2019. Specimen Blood - Blood specimen (specimen) Performing Organization Address [facility] Phone Number [facility] [address] [place] [address] PROTHROMBIN TIME (10/25/2019 11:51 AM EST) INR 1.13Comment: INR 0.88 - 1.13 [facility] Therapeutic Range: Ratio [facility] 2.0 - 3.5 Protime 14.3Comment: 12.0 - 14.5 sec [facility] Reference range [facility] updated 09/19/2019. Specimen Blood - Blood specimen (specimen) Performing Organization Address [facility] Phone [facility] [address] [place] [address] [phone] TYPE AND SCREEN (10/25/2019 11:51 AM EST) ABO/RH Type O POS [facility] Antibody Screen Interp NEG [facility] Specimen Blood - Blood specimen (specimen) Performing Organization Address City/State/Zipcode Phone Number [facility] [place] [address] COMPREHENSIVE METABOLIC PANEL (10/25/2019 11:51 AM EST) Sodium 137 134 - 145 mmol/L [facility] Potassium 4.4 3.5 - 5.1 mmol/L [facility] Chloride 108 (H) 98 - 107 mmol/L [facility] CO2 20 (L) 22 - 30 mmol/L [facility] Calcium 9.2 8.3 - 10.1 mg/dl [facility] Albumin 3.7 3.5 - 5.0 g/dl [facility] BUN 33 (H) 7 - 17 mg/dl [facility] Creatinine 0.6 (L) 0.7 - 1.2 mg/dl [facility] Glucose 192 (H) 70 - 99 mg/dl [facility] Total Protein 7.0 6.3 - 8.2 g/dl [facility] Total Bilirubin 0.4 0.0 - 1.1 MG/DL [facility] AST 77 (H) 15 - 46 U/L [facility] ALT 39 9 - 52 U/L [facility] Alkaline 97 40 - 150 U/L [facility] eGFR >60 See Interpretation [facility] Comment: Below ml/min/1.73ml GROUP Estimated GFR Interpretation: LABORATORY Above 60ml/min/1.73m2 = Normal Renal Function 30-59 ml/min/1.73m2 = Stage 3 Chronic Kidney Disease 15-29 ml/min/1.73m2 = Stage 4 Chronic Kidney Disease Less than 15 ml/min/1.73m2 = Stage 5 Chronic Kidney Disease The GFR value is calculated using the Modification of Diet in Renal Disease ( MDRD) Study Equation which can be found at: https://www.kidney.org/content/bdbb-iokzn-ilmskdpd BUN/Creatinine 55 (H) 6 - 22 RATIO [facility] Anion Gap 9 3 - 11 mmol/L [facility] A/G Ratio 1.1 0.8 - 2.0 ratio [facility] Specimen Blood - Blood specimen (specimen) Performing Organization Address City/State/Zipcode Phone Number [facility] [address] [facility] [place] [address] [phone] CBC WITH DIFFERENTIAL (10/25/2019 11:51 AM EST) WBC Count 10.14 (H) 3.98 - 10.04 [facility] K/uL LABORATORY RBC Count 3.94 3.93 - 5.22 M/UL [facility] Hemoglobin 11.5 11.2 - 15.7 g/dL [facility] Hematocrit 34.7 34.1 - 44.9 % [facility] MCV 88.1 79.4 - 94.8 FL [facility] MCH 29.2 25.6 - 32.2 PG [facility] MCHC 33.1 32.2 - 35.5 g/dL [facility] Platelet Count 203 182 - 369 K/uL [facility] MPV 10.9 9.4 - 12.3 FL [facility] RDW 13.2 11.7 - 14.4 % [facility] Neutrophil % 75.8 (H) 34.0 - 71.1 % [facility] Lymphocyte % 17.0 (L) 19.3 - 51.7 % [facility] Monocyte % 5.1 4.7 - 12.5 % [facility] Eosinophil % 1.0 0.7 - 5.8 % [facility] Basophil % 0.5 0.1 - 1.2 % [facility] nRBC % 0.0 0.0 - 0.2 % [facility] Neutrophil # 7.69 (H) 1.56 - 6.13 K/UL [facility] Lymphocyte # 1.72 1.18 - 3.74 K/UL [facility] Monocyte # 0.52 0.24 - 0.86 K/UL [facility] Eosinophil # 0.10 0.04 - 0.36 K/UL [facility] Basophil # 0.05 0.01 - 0.08 K/UL [facility] Immature Gran % 0.6 (H) 0.0 - 0.4 % [facility] Immature Gran # 0.06 (H) 0.00 - 0.03 K/uL [facility] NRBC # 0.00 0.00 - 0.12 K/uL [facility] Specimen Blood - Blood specimen (specimen) Performing Organization Address City/State/[place] Phone Number [facility] [address] [facility] [place] [address] ALCOHOL LEVEL, MEDICAL (10/25/2019 11:51 AM EST) Blood Alcohol <10.00 0.00 - 10.00 [facility] MG/DL [facility] Alcohol % Comment: None [facility] Specimen Blood - Blood specimen (specimen) Performing Organization Address [facility] Phone Number [facility] [address] [facility] [address] documented in this encounter Visit Diagnoses Diagnosis Rhabdomyolysis - Primary Traumatic rhabdomyolysis, initial encounter (HCC) Ulcer of esophagus without bleeding Type 2 diabetes mellitus with diabetic polyneuropathy, with long-term current use of insulin (HCC) Osteoarthritis of multiple joints Osteoarthrosis involving, or with mention of more than one site, but not specified as generalized, multiple sites Mixed hyperlipidemia Diabetic neuropathy (HCC) Type II or unspecified type diabetes mellitus with neurological manifestations , not stated as uncontrolled Depression Depressive disorder, not elsewhere classified documented in this encounter Administered Medications Medication Order MAR Action Action Date Dose Rate Site apixaban (ELIQUIS) tablet 5 mg Given 10/29/2019 8:33 AM EST 5 mg 5 mg, Oral, BID, 14 doses, First dose on Wed10/25/19 at 2100, Last dose on Wed11/01/19 at 0900, For patients who are unable to swallow whole tablets, 5 mg and 2.5 mg ELIQUIS tablets may be crushed and suspended in water, 5% dextrose in water (D5W) , apple juice, or mixed with applesauce and promptly administered orally. Alternatively, ELIQUIS tablets may be crushed and suspended in 60 mL of water or D5W and promptly delivered through a nasogastric tube. Crushed ELIQUIS tablets are stable in water, D5W, apple juice, and applesauce for up to 4 hours., Given 10/28/2019 9:11 PM EST 5 mg Given 10/28/2019 8:24 AM EST 5 mg atorvastatin (LIPITOR) tablet 20 mg Given 10/29/2019 8:33 AM EST 20 mg 20 mg, Oral, DAILY, First dose on Wed10/25/19 at 1750, Until Discontinued Given 10/28/2019 8:27 AM EST 20 mg Given 10/27/2019 8:45 AM EST 20 mg bethanechol (URECHOLINE, DUVOID) tablet 25 mg Given 10/29/2019 8:33 AM EST 25 mg 25 mg, Oral, QID, First dose on Wed10/25/19 at 1750, Until Discontinued Given 10/28/2019 11:11 PM EST 25 mg Given 10/28/2019 6:00 PM EST 25 mg cloNIDine (CATAPRES) tablet (1/2X0.1 mg) Given 10/29/2019 8:33 AM EST 0.05 mg 0.05 mg 0.05 mg, Oral, BID, First dose (after last modification) on Katharina 10/26/19 at 0900, Until Discontinued Given 10/28/2019 9:11 PM EST 0.05 mg Given 10/28/2019 8:25 AM EST 0.05 mg cloNIDine (CATAPRES) tablet 0.1 mg Given 10/25/2019 8:28 PM EST 0.1 mg 0.1 mg, Oral, TID, First dose (after last modification) on Wed10/25/19 at 2100, Until Discontinued fluoxetine (PROZAC) capsule 40 mg Given 10/29/2019 8:33 AM EST 40 mg 40 mg, Oral, DAILY, First dose on Wed10/25/19 at 1750, Until Discontinued Given 10/28/2019 8:24 AM EST 40 mg Given 10/27/2019 8:42 AM EST 40 mg gabapentin (NEURONTIN) capsule 600 mg Given 10/29/2019 8:33 AM EST 600 mg 600 mg, Oral, TID, First dose on Wed10/25/19 at 2100, Until Discontinued Given 10/28/2019 11:11 PM EST 600 mg Given 10/28/2019 6:00 PM EST 600 mg GLARGINE insulin Given 10/28/2019 9:17 PM EST 40 Units Arm - Upper Left (LONG-Acting) injection 40 Units 40 Units, Subcutaneous, BID, First dose on Wed10/25/19 at 2100, Until Discontinued Given 10/28/2019 8:31 AM EST 40 Units Arm - Upper Right Given 10/27/2019 9:11 PM EST 40 Units Arm-Left HYDROmorphone (DILAUDID) syringe 1 mg Given 10/29/2019 9:56 AM EST 1 mg 1 mg, Intravenous Push, Q4 HRS PRN, Starting Wed10/25/19 at 1941, Until 10/29/19 at 1332, Moderate Pain (pain scale 4-6)IV 2nd line- if immediate effect required or cannot tolerate PO & still had moderate pain 2 hrs after admin of 1st line agent or did not tolerate 1st line agent, Severe Pain (pain scale 7-10)IV 2nd line - if immediate effect required or cannot tolerate PO & no still has severe pain 1 hr after admin of 1st line agent or did not tolerate 1st line agent Given 10/29/2019 5:35 AM EST 1 mg Given 10/28/2019 10:23 PM EST 1 mg iohexol (OMNIPAQUE) 350 MG/ML injectable Push 10/25/2019 1:15 PM EST 125 mL solution 125 mL 125 mL, Intravenous, NOW, 1 dose, Wed10/25/19 at 1315 LISPRO insulin (RAPID-Acting) USUAL Given 10/27/2019 9:10 PM EST 2 Units Arm-Right Correction Scale Inj Subcutaneous, AC/HS, First dose on Wed10/25/19 at 2100, Until Discontinued, Blood Glucose USUAL <=150 0 Units 151-200 2 Units 201-250 4 Units 251-300 6 Units 301-350 8 Units 351-400 10 Units >400 12 Units And Call Stem Shaper Not for IV USE, Given 10/26/2019 9:47 PM EST 2 Units Arm - Upper Right Given 10/26/2019 5:25 PM EST 2 Units Abdominal Tissue morphine (PF) syringe 2 mg Given 10/25/2019 11:56 AM EST 2 mg 2 mg, Intravenous Push, NOW, 1 dose, Wed10/25/19 at 1150 normal saline bolus 1,000 mL New Bag 10/25/2019 11:55 AM EST 1,000 mL 1,000 mL, Intravenous, BOLUS, 1 dose, Wed10/25/19 at 1245 normal saline bolus 1,000 mL New Bag 10/25/2019 2:08 PM EST 1,000 mL 1,000 mL, Intravenous, BOLUS, 1 dose, Wed10/25/19 at 1450 normal saline bolus 500 mL New Bag 10/26/2019 12:31 AM EST 500 mL 500 mL, Intravenous, BOLUS, 1 dose, Katharina 10/26/19 at 0110 normal saline IV New Bag 10/28/2019 1:50 PM EST 150 mL/hr Intravenous, at 150 mL/hr, CONTINUOUS, Starting Wed10/25/19 at 1845, Until 10/28/19 at 1401 New Bag 10/27/2019 10:00 AM EST 150 mL/hr New Bag 10/27/2019 12:45 AM EST 150 mL/hr normal saline IV New Bag 10/29/2019 2:23 AM EST 75 mL/hr Intravenous, at 75 mL/hr, CONTINUOUS, Starting 10/28/19 at 1410, Until 10/29/19 at 1332 Rate Change 10/28/2019 2:20 PM EST 75 mL/hr OXYcodone-acetaminophen (PERCOCET) 5-325 mg Given 10/25/2019 4:34 PM EST 2 Tabs 2 Tab 2 Tab, Oral, X1, 1 dose, First dose on Wed10/25/19 at 1730, MAXIMUM 4,000 mg of acetaminophen daily., pantoprazole (PROTONIX) enteric coated tablet Given 10/29/2019 5:36 AM EST 40 mg 40 mg 40 mg, Oral, PRE BREAKFAST, First dose on Katharina 10/26/19 at 0600, Until Discontinued, This medication dosage form should NOT be crushed. Please call the inpatient Pharmacy for more information. [facility] ext. [phone] ext. [phone] [facility] ext. [phone] , Given 10/28/2019 5:32 AM EST 40 mg Given 10/27/2019 5:44 AM EST 40 mg polyethylene glycol (MIRALAX) oral pack 17 g Given 10/29/2019 8:35 AM EST 17 g 17 g, Oral, DAILY, First dose on Wed10/25/19 at 1750, Until Discontinued Given 10/28/2019 8:31 AM EST 17 g Given 10/28/2019 8:25 AM EST 17 g Quetiapine Fumarate (SEROQUEL) tablet 50 mg Given 10/28/2019 9:17 PM EST 50 mg 50 mg, Oral, QHS PRN, Starting Wed10/25/19 at 2100, Until 10/29/19 at 1332, difficulty sleeping Given 10/27/2019 9:11 PM EST 50 mg Given 10/26/2019 10:20 PM EST 50 mg sucralfate (CARAFATE) tablet 1,000 mg Given 10/29/2019 8:33 AM EST 1,000 mg 1,000 mg, Oral, AC/HS, First dose on Wed10/25/19 at 2100, Until Discontinued, Do not administer through "tubes" (Gastrostomy (PEG/G-tube), Orogastric (OG), Jejunal (J-tube), Nasogastric (NG)), Given 10/28/2019 11:11 PM EST 1,000 mg Given 10/28/2019 6:00 PM EST 1,000 mg topiramate (TOPAMAX) tablet 50 mg Given 10/29/2019 8:33 AM EST 50 mg 50 mg, Oral, BID, First dose on Wed10/25/19 at 2100, Until Discontinued Given 10/28/2019 9:11 PM EST 50 mg Given 10/28/2019 8:24 AM EST 50 mg documented in this encounter (Home) [facility] [phone] [place], [place] (Work) [id number] documented as of this encounter Advance Directives Code Status Date Activated Date Inactivated Comments Full Code 10/25/2019 5:48 PM Does the patient have decision making capacity? Yes Order was discussed with: Patient I discussed all options and patient/surrogate requested and agreed to: Full Code Full Code 07/24/2019 2:43 PM 10/25/2019 11:20 AM Does the patient have decision making capacity? Yes Order was discussed with: Patient I discussed all options and patient/surrogate requested and agreed to: Full Code DNR/DNI 12/20/2018 2:42 AM 12/26/2018 4:29 PM Does the patient have decision making capacity? Yes Order was discussed with: Patient I discussed all options and patient/surrogate requested and agreed to: DNR/ DNI DNI 09/07/2018 12:14 PM 09/09/2018 7:29 PM Does patient have decision making capacity? yes Order discussed with: Patient I discussed all options and patient/surrogate requested and agreed to: Do not intubate (DNI) DNR/DNI 04/28/2018 5:39 AM 04/30/2018 2:43 PM Does patient have decision making capacity? yes Order discussed with: Patient I discussed all options and patient/surrogate requested and agreed to: DNR/DNI
--- OUTSIDE RECORDS SUMMARY | 2019-12-03 13:23 | XMS REPORT | Continuity of Care Document ---
:1965 External Reference #:[id number] Author Name Armen Goodman MD (transmitted by agent of provider Shea Stephen) Address [address] [place] [id number] Care Team Providers Name Role Phone Armen Goodman MD - Hospitalist Care Team Information Supply Tech [phone] Problems Active Problems Provider Date Type II [...] smoker, smokes every day Smoking Status Reviewed: 11/06/19 Patient is a current smoker, smokes every day Exercise Type/Frequency Does not exercise Allergies, Adverse Reactions, Alerts Active Allergies Reaction Severity Comments Date Sulfa Antibiotics 09/13/2018 Penicillin 09/13/2018 Reglan 09/13/2018 Medications Active Medications SIG Qnty Indications Ordering Date Provider Nicotrol use every 2 hours 168units F17.210 Armen Goodman MD 08/28/2019 10mg Inhaler as needed for nicotine cravings. Quetiapine Fumarate take 1 tablet by 30tabs Armen Goodman MD 07/24/2019 25mg mouth at bedtime Tablets Gabapentin Take 2 Capsules 180caps Dian 06/23/2019 300mg Capsules By Mouth Three Senner, DO Times Daily Alcohol Prep use daily as 2000units Dian 03/16/2019 Pads directed Jemner, DO Cyclobenzaprine HCL take 1 tablet by 90tabs Armen Goodman MD 12/12/2018 5mg mouth three times Tablets daily as needed Senna-Docusate Sodium take 1 tablet 30tabs K59.00 Armen Goodman MD 12/12/2018 daily 8.6-50mg Tablets Nicotine Transdermal 1 patch daily [...] Admelog 10u three times a 30ml E11.65 [facility] 09/13/2018 100Unit/ML day with each Senner, DO Solution meal Basaglar Kwikpen inject 50u twice 15ml E11.65 [facility] 09/13/2018 a day. . Senner, DO 100Unit/ML Solution Pen-Inject Lancets for use with your 100units E11.65 [facility] 09/13/2018 30G Misc glucometer Senner, DO Freestyle Test for blood glucose 100units E11.65 [facility] 09/13/2018 Strips monitoring at [facility], DO least 3 times a day. Freestyle System For blood glucose 1units E11.65 Armen Goodman MD 09/13/2018 Kit monitoring. Norvasc 1 by mouth every 30tabs Dian 10mg Tablets day , DO Lipitor one tab by mouth 30tabs Dian 20mg Tablets every night at [facility], DO bedtime Urecholine 4 times per day Unknown 25mg Tablets Prozac 1 by mouth every 30caps Dian 40mg Capsules day , DO Lisinopril 1 by mouth every 30tabs Dian 40mg Tablets day ner, DO Miralax 17 grams by mouth 30units Armen Goodman MD Powder every day as needed Topiramate 1 [...] a day Protonix 1 by mouth every 90tabs Armen Goodman MD 40mg Tablets DR day Immunizations Description No Information Available Vital Signs Date Vital Result Comment 11/06/2019 1:41pm Height 61 inches 5'1" Weight 146.00 lb Heart Rate 73 /min BP Systolic 173 mmHg BP Diastolic 106 mmHg O2 % BldC Oximetry 97 % BMI (Body Mass Index) 27.6 kg/m2 08/28/2019 1:34pm Height 61 inches 5'1" Weight 142.00 lb Heart Rate 120 /min BP Systolic 140 mmHg BP Diastolic 78 mmHg Body Temperature 97.6 F O2 % BldC Oximetry 97 % BMI (Body Mass Index) 26.8 kg/m2 Results Test Acquired Date Facility Test Result H/L Range Note Laboratory test 11/06/2019 [facility] Creatine 47 U/L Normal 10-223 finding Kinase(CK) [place] [address] [phone] Laboratory test 11/06/2019 [facility] Hemoglobin A1c <pending> finding (Glyco HGB) [place] [address] [phone] Ammonia 45 mcmol/L Normal 16-53 Syphillis Igg W/Reflex RPR <pending> D Dimer Quantitative < 200 ng/mL Normal Less Than 230 1 Laboratory 10/07/2019 [facility] Troponin-I 0.06 Critical < 0.04 2 test finding (TnI) ng/[place] [address] [phone] Lactic Acid 1.5 mmol/L Normal 0.5-2.0 3 CBC Auto 10/07/2019 [facility] White Blood 5.8 10^3/uL Normal 3.5-10.8 Diff [address] [place] [address] [phone] Red Blood Count 4.99 10^6/uL High 3.70-4.87 Hemoglobin 14.5 g/dL Normal 12.0-16.0 Hematocrit 44 % Normal 35-47 Mean Corpuscular Volume 88 fL Normal 80-97 Mean Corpuscular Hemoglobin 29 pg Normal 27-31 Mean Corpuscular HGB Conc 33 g/dL Normal 31-36 Red Cell Distribution Width 14 % Normal 10-15 Platelet Count 200 10^3/uL Normal 150-450 Mean Platelet Volume 9.2 fL Normal 7.4-10.4 Abs Neutrophils 3.8 10^3/uL Normal 1.5-7.7 Abs Lymphocytes 1.6 10^3/uL Normal 1.0-4.8 Abs Monocytes 0.3 10^3/uL Normal 0-0.8 Abs Eosinophils 0.1 10^3/uL Normal 0-0.6 Abs Basophils 0.1 10^3/uL Normal 0-0.2 Abs Nucleated RBC 0.0 10^3/uL Granulocyte % 64.9 % Lymphocyte % 27.5 % Monocyte % 5.6 % Eosinophil % 0.9 % Basophil % 1.1 % Nucleated Red Blood Cells % 0.2 Laboratory 10/07/2019 [facility] Lactic 2.6 mmol/L Critical 0.5-2.0 [address] [place] [address] [phone] Troponin-I (TnI) 0.05 ng/mL Critical high <0.04 5 Comp Metabolic Panel 10/07/2019 [facility] Sodium 134 mmol/L Low 135-145 [address] [place] [address] [phone] Potassium 4.2 mmol/L Normal 3.5-5.0 Chloride 104 mmol/L Normal 101-111 Co2 Carbon Dioxide 20 mmol/L Low 22-32 Anion Gap 10 mmol/L Normal 2-11 Glucose 413 mg/dL High 70-100 Blood Urea Nitrogen 17 mg/dL Normal 6-24 Creatinine 0.74 mg/dL Normal 0.51-0.95 BUN/Creatinine Ratio 23.0 High 8-20 Calcium 9.4 mg/dL Normal 8.6-10.3 Total Protein 7.4 g/dL Normal 6.4-8.9 Albumin 4.0 g/dL Normal 3.2-5.2 Globulin 3.4 g/dL Normal 2-4 Albumin/Globulin Ratio 1.2 Normal 1-3 Total Bilirubin 0.30 mg/dL Normal 0.2-1.0 Alkaline Phosphatase 118 U/L High 34-104 Alt 15 U/L Normal 7-52 Ast 12 U/L Low 13-39 Egfr Non- 81.2 >60 Egfr 98.2 >60 6 Laboratory test 10/07/2019 [facility] Lipase 60 U/L Normal 11.0-82.0 finding [address] [place] [address] [phone] C Reactive Protein 17.89 mg/L High <8.01 Urinalysis Profile 10/07/2019 [facility] Urine Color Straw [address] [place] [address] [phone] Urine Appearance Clear Urine Specific [place] 1.035 High 1.010-1.030 Urine pH 5.0 Normal 5-9 Urine Urobilinogen Negative Negative Urine Ketones Negative Negative Urine Protein Negative Negative Urine Leukocytes Negative Negative Urine Blood Negative Negative Urine Nitrite Negative Negative Urine Bilirubin Negative Negative Urine Glucose 3+(>=500 mg/dL) Abnormal Negative CBC Auto 06/22/2019 [facility] White Blood 7.5 10^3/uL Normal 3.5-10.[address] [place] [address] [phone] Red Blood Count 4.67 10^6/uL Normal 3.70-4.87 [...] Blood Cells % 0.0 Basic Metabolic 06/22/2019 [facility] Sodium 136 mmol/L Normal 135-[address] [place] [address] [phone] Potassium 4.2 mmol/L Normal 3.5-5.0 Chloride 104 mmol/L Normal 101-111 Co2 Carbon Dioxide 26 mmol/L Normal 22-32 Anion Gap 6 mmol/L Normal 2-11 Glucose 342 mg/dL High 70-100 Blood Urea Nitrogen 14 mg/dL Normal 6-24 Creatinine 0.72 mg/dL Normal 0.51-0.95 BUN/Creatinine Ratio 19.4 Normal 8-20 Calcium 9.2 mg/dL Normal 8.6-10.3 Egfr Non- 83.8 >60 Egfr 101.4 >60 7 Urinalysis Profile 06/22/2019 [facility] Urine Color Straw [address] [place] [address] [phone] Urine Appearance Cloudy Urine Specific [place] 1.028 Normal 1.010-1.030 Urine pH 7.0 Normal [...] Absent Urine Bacteria Absent Absent Urine Culture And 06/22/2019 [facility] Urine Culture SEE RESULT [address] [place] [address] [phone] 1 Please note: The following may produce a false positive D Dimer test: - Rheumatoid factor greater than 60 IU/ml - Plasma hemoglobin greater than 0.05 gm/dl - Bilirubin greater than 50 mg/dl - Lipids greater than 1000 mg/dl - FDP greater than 20 ug/ml 2 Result TnIDx:0.06 Called to [id number] at: 20:13:13 by:[id number] Read back by: [id number] Troponin-I testing on Plasma Separator Tubes (PST) has a known false positive rate of 0.20-0.40%. All positive troponins reflex immediately to secondary confirmatory testing. Using the [employer] DxI 800 Access Immunoassay systems, the 99th percentile upper reference limit was demonstrated to be < 0.03 ng/mL. 3 [facility] Severe Sepsis and Septic Shock Management Bundle Measure requires all lactic acids initially measuring >2.0 mmol/L be repeated. 4 Critical Result LACT:2.6 Called to [id number] at: 16:57:29 by:[id number] Read back by:[id number] [facility] Severe Sepsis and Septic Shock Management Bundle Measure requires all lactic acids initially measuring >2.0 mmol/L be repeated. 5 Result TnIDx:0.05 Called to [id number] at: 16:58:12 by:[id number] Read back by: [id number] Troponin-I testing on Plasma Separator Tubes (PST) has a known false positive rate of 0.20-0.40%. All positive troponins reflex immediately to secondary confirmatory testing. Using the [employer] DxI 800 Access Immunoassay systems, the 99th percentile upper reference limit was demonstrated to be < 0.03 ng/mL. 6 Because ethnic data is not always readily [...] 15-29 5 Kidney failure <15 (or dialysis) 7 Because ethnic data is not always [...] dialysis) 8 SEE RESULT BELOW Name: EVIE SIMPSON : [address]: Pedrito Abel MD Acct: [id number] Unit: [id number] AGE: 54 Location: ED Re06/22/19 SEX: F Status: REG ER SPEC: [id number] UZAIR: 06/22/[address]: Pedrito Abel MD REQ: [id number] RECD: 06/22/19 STATUS: [facility] DR: Armen Goodman MD _ SOURCE: URINE SPDESC: ORDERED: Urine Culture Procedure Result Reported Site Urine Culture Final 06/25/19- 923 ML Organism 1 ESCHERICHIA COLI Cowgill Count >100,000 (Many) CFU/ML 1. ESCHERICHIA COLI [...] . END OF REPORT DEPARTMENT OF PATHOLOGY, [address] [place] [address] Hu Koch M.D. Director [facility] # [id number] Procedures Date Code Description Status 10/08/2019 85328 ECHO Transthorasic Realtime 2D W Doppler & Color Flow Completed Hosp 02/21/2018 [id number] Colonoscopy Completed Medical Devices Description No Information Available Encounters Type Date Location Provider Dx Diagnosis Office Visit 10/13/2019 [facility] Alex Marcusdon, R10.32 Left lower 9:18a valerio Swanson M.D. quadrant pain Hospitalists K59.09 Other constipation E11.9 Type 2 diabetes mellitus without complications F11.99 Opioid use, unsp with unspecified opioid-induced disorder Office Visit 10/12/2019 [facility] K52.9 Noninfective 9:18a Assvalerio sweeney D.O. gastroenteritis and Hospitalists colitis, unspecified I10 Essential (primary) hypertension F32.9 Major depressive disorder, single episode, unspecified F11.99 Opioid use, unsp with unspecified opioid-induced disorder Z79.4 [facility] (current) use of insulin Office Visit 10/11/2019 [facility] K52.9 Noninfective 9:17a Assvalerio sweeney D.O. 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 K31.84 Gastroparesis Z79.4 [facility] (current) use of insulin I10 Essential (primary) hypertension F11.99 Opioid use, unsp with unspecified opioid-induced disorder Office Visit 10/10/2019 7:00a [facility] Gastroenterology Lucian Knox R19.4 Change in MD Abdullahi bowel habit K56.41 Fecal impaction Office Visit [facility]/10[facility]2019 [facility] K52.9 Noninfective 9:15a Assocvalerio MD gastroenteritis and Hospitalists colitis, unspecified I26.99 Other pulmonary embolism without acute cor pulmonale I10 Essential (primary) hypertension F11.988 Opioid use, unspecified with other opioid-induced disorder E11.40 Type 2 diabetes mellitus with diabetic neuropathy, unsp Office Visit 10/09/2019 [facility] Elizabeth K52.9 Noninfective 9:14a Assocvalerio MD gastroenteritis and Hospitalists colitis, unspecified I26.99 Other pulmonary embolism without acute cor pulmonale I10 Essential (primary) hypertension E11.40 Type 2 diabetes mellitus with diabetic neuropathy, unsp F11.90 Opioid use, unspecified, uncomplicated 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 quadrant pain Hospitalists F50.9 Eating disorder, unspecified Office Visit 08/28/2019 1:40p [facility] Internal Armen Goodman MD R41.3 Other amnesia Medicine - [address] I26.09 Other pulmonary embolism with acute cor pulmonale E11.9 Type 2 diabetes mellitus without complications F17.210 Nicotine dependence, cigarettes, uncomplicated F33.9 Major depressive disorder, recurrent, unspecified H90.3 Sensorineural hearing loss, bilateral I10 Essential (primary) hypertension Assessments Date Code Description Provider 11/06/2019 E11.9 Type 2 diabetes mellitus without Armen Goodman MD complications 11/06/2019 M62.82 Rhabdomyolysis Armen Goodman MD 11/06/2019 Z79.4 [facility] (current) use of insulin Armen Goodman MD 11/06/2019 K31.84 Gastroparesis Armen Goodman MD 11/06/2019 F11.99 Opioid use, unspecified with unspecified Armen Goodman MD opioid-induced disorder 11/06/2019 K59.09 Other constipation Armen Goodman MD 11/06/2019 R41.3 Other amnesia Armen Goodman MD 11/06/2019 I26.09 Other pulmonary embolism with acute cor Armen Goodman MD pulmonale 10/13/2019 R10.32 Left lower quadrant pain Alex Kim M.D. 10/13/2019 K59.09 Other constipation Alex Kim M.D. 10/13/2019 E11.9 Type 2 diabetes mellitus without Alex Kim M.D. complications 10/13/2019 F11.99 Opioid use, unspecified with unspecified Alex Kim M.D. opioid-induced disorder 10/12/2019 K52.9 Noninfective gastroenteritis and colitis, Lisa Lito, D.O. unspecified 10/12/2019 I10 Essential (primary) hypertension Lisa Lito, D.O. 10/12/2019 F32.9 Major depressive disorder, single Lisa Lito, D.O. episode, unspecified 10/12/2019 F11.99 Opioid use, unspecified with unspecified Lisa Lito, D.O. opioid-induced disorder 10/12/2019 Z79.4 [facility] (current) use of insulin Lisa Lito, D.O. 10/11/2019 K52.9 Noninfective gastroenteritis and colitis, Lisa Lito, D.O. unspecified 10/11/2019 F32.9 Major depressive disorder, single Lisa Lito, D.O. episode, unspecified 10/11/2019 E11.43 Type 2 diabetes mellitus with diabetic Lisa Lito, D.O. autonomic (poly)neuropathy 10/11/2019 K31.84 Gastroparesis Lisa Lito, D.O. 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 10/11/2019 I10 Essential (primary) hypertension Claudio AntonyO. 10/11/2019 F11.99 Opioid use, unspecified with unspecified Cecilio Antony.O. opioid-induced disorder 10/10/2019 R19.4 Change in bowel habit Lucian Fernando MD 10/10/2019 K52.9 Noninfective gastroenteritis and colitis, Elizabeth Stark MD unspecified 10/10/2019 K56.41 Fecal impaction Lucian Fernando MD 10/10/2019 I26.99 Other pulmonary embolism without acute Elizabeth Stark MD cor pulmonale 10/10/2019 I10 Essential (primary) hypertension Elizabeth Stark MD 10/10/2019 F11.988 Opioid use, unspecified with other Elizabeth Stark MD opioid-induced disorder 10/10/2019 E11.40 Type 2 diabetes mellitus with diabetic Elizabeth Stark MD neuropathy, unspecified 10/09/2019 K52.9 Noninfective gastroenteritis and colitis, Elizabeth Stark MD unspecified 10/09/2019 I26.99 Other pulmonary embolism without acute Elizabeth Stark MD cor pulmonale 10/09/2019 I10 Essential (primary) hypertension Elizabeth Stark MD 10/09/2019 E11.40 Type 2 diabetes mellitus with diabetic Elizabeth Stark MD neuropathy, unspecified 10/09/2019 F11.90 Opioid use, unspecified, uncomplicated Elizabeth Stark MD 10/09/2019 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 10/08/2019 K52.9 Noninfective gastroenteritis and colitis, Elizabeth Stark MD unspecified 10/08/2019 I26.99 Other pulmonary embolism without acute Elizabeth Stark MD cor pulmonale 10/08/2019 I10 Essential (primary) hypertension Elizabeth Stark MD 10/07/2019 R10.32 Left lower quadrant pain Bri Forbes M.D. 10/07/2019 F50.9 Eating disorder, unspecified Bri Forbes M.D. 08/28/2019 R41.3 Other amnesia Armen Goodman MD 08/28/2019 I26.09 Other pulmonary embolism with acute cor Armen Goodman MD pulmonale 08/28/2019 E11.9 Type 2 diabetes mellitus without Armen Goodman MD complications 08/28/2019 F17.210 Nicotine dependence, cigarettes, Armen Goodman MD uncomplicated 08/28/2019 F33.9 Major depressive disorder, recurrent, Armen Goodman MD unspecified 08/28/2019 H90.3 Sensorineural hearing loss, bilateral Armen Goodman MD 08/28/2019 I10 Essential (primary) hypertension Armen Goodman MD Plan of Treatment 11/06/2019 - Armen Goodman MDE11.9 Type 2 diabetes mellitus without complicationsComments:call Dr. Metcalf62.82 HkcagqhxlwamirJ61.4 dress finisher (current ) use of mgwpwruC97.84 DzvcekyedamgkQ40.99 Opioid use, unspecified with unspecified opioid-induced omsfslatT14.09 Other ifdpkewmaaxwD98.3 Other ojwhrelH74.09 Other pulmonary embolism with acute cor pulmonale Functional Status Description No Information Available Mental Status Description No Information Available Referrals Refer to Reason for Referral Status Appt Date [facility] b/l hearing loss Sent [address] [place] [address] [place] [address] [phone] So Nolen AU.D b/l hearing loss; Called referral office, Sent refaxed 10/02 DO NOT PAR [address] [place] [address] [phone] Robert Sandhu MD hypercoag work up, unprovoked PE January 2019; Sent Called referral office, refaxed 10/[address] [place] [address] [phone]
--- OUTSIDE RECORDS SUMMARY | 2019-12-03 13:23 | XMS REPORT | Summary of Care ---
:1965 Author Organization [facility] Address [address] [address] Care Team Providers Name Role Phone Armen Goodman MD Primary Care Provider Reason for Visit Reason Comments Fall Knee Pain Encounter Details Date Type Department Care Team Description 11/26/2019 Emergency [facility] Emergency Department Emergency [address] [id number] Allergies Active Allergy Reactions Severity Noted Date Comments Penicillins Other 12/07/2016 "Pass out" Reglan Other High 12/22/2016 Panick Attack. Sulfa Antibiotics Hives 12/07/2016 documented as of this encounter (statuses as of 11/27/2019) Medications Medication Sig Dispensed Refills Start Date End Date Status polyethylene glycol Take 1 PKT by 7 Packet 0 07/30/2017 Active (MIRALAX) Oral Pack mouth DAILY. Buprenorphine Place under 0 Active HCl-Naloxone HCl tongue. (SUBOXONE) 8-2 MG Sublingual FILMIndications: takes 8-2 mg BID Insulin Glargine 100 Inject 40-60 12 Each 1 03/23/2018 Active UNIT/ML Subcutaneous Units beneath Solution the skin TWICE Pen-injectorIndications: DAILY. 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 psychotic features (HCC), Anxiety Fluoxetine HCl 40 MG Take 1 Cap by 30 Cap 2 06/27/2018 Active Oral CapIndications: mouth DAILY. Severe single current episode of major depressive disorder, without psychotic features (HCC), Anxiety Topiramate 50 MG Oral Take 1 Tab by 60 Tab 5 06/27/2018 Active TabIndications: Anxiety, mouth TWICE Nonintractable migraine, DAILY. G43.009 unspecified migraine type atorvastatin (LIPITOR) Take 1 Tab by 90 Tab 1 06/27/2018 Active 20 MG Oral mouth DAILY. TabIndications: Mixed hyperlipidemia promethazine (PHENERGAN) Take 1 Tab by 12 Tab 0 06/27/2018 Active 25 MG Oral Tab mouth EVERY EIGHT HOURS NEEDED for nausea for up to 12 doses. gabapentin (NEURONTIN) Take 600 mg by 0 Active 300 MG Oral Cap mouth THREE TIMES DAILY. sucralfate (CARAFATE) 1 Take 1 Tab by 120 Tab 0 09/09/2018 Active GM Oral Tab mouth FOUR TIMES DAILY - BEFORE MEALS & NIGHTLY. 30 minutes before eating apixaban (ELIQUIS) 5 MG Take by mouth 0 Active Oral Tab TWICE DAILY. bethanechol (URECHOLINE, Take 1 Tab by 120 Tab 5 05/29/2019 Active DUVOID) 25 MG Oral mouth FOUR TIMES TabIndications: DAILY. Gastroparesis cloNIDine (CATAPRES) 0.1 Take 0.5 Tabs by 60 Tab 0 10/29/2019 Active MG Oral Tab mouth TWICE DAILY. OXYcodone-acetaminophen Take 1 Tab by 28 Tab 0 10/29/2019 Active (PERCOCET) 5-325 MG Oral mouth EVERY Tab EIGHT HOURS NEEDED (for severe pain). Max Daily Amount: 3 Tabs. pantoprazole (PROTONIX) Take 1 Tab by 30 Tab 5 11/02/2019 Active 40 MG Oral Tab EC mouth BEFORE BREAKFAST. documented as of this encounter (statuses as of 11/27/2019) Active Problems Problem Noted Date Rhabdomyolysis 10/25/2019 [...] as of this encounter (statuses as of 11/27/2019) Resolved Problems Problem Noted Date Resolved Date [...] as of this encounter (statuses as of 11/27/2019) Immunizations Name Administration Dates Next Due Influenza [...] or relatives? How often do you attend sikh or Never 10/25/2019 latter-day services? Do you belong to any clubs or No 10/25/2019 organizations such as sikh groups, unions, fraternal or athletic groups, or [...] Sign Reading Time Taken Comments Blood Pressure 111/64 11/26/2019 11:35 PM EST Pulse 71 11/26/2019 11:35 PM EST Temperature 36.8 11/26/2019 6:38 PM EST C (98.2 F) Respiratory Rate 18 11/26/2019 11:35 PM EST Oxygen Saturation 95% 11/26/2019 11:35 PM EST Inhaled Oxygen Concentration - - Weight - - Height - - Body Mass Index - - documented in this encounter Discharge Instructions InstructionsTiff Hurd PA - 11/26/2019OTC Ibuprofen as needed for pain relief Rest, ice, elevate the extremity May use brittany wrap when leg is in dependant position Ambulate with walker for assistance. May bear weight as tolerated. Educated on importance of using insulin at home Follow up with PCP Return to ED if symptoms worsen/ change. AttachmentsThe following attachments cannot be sent through Care Everywhere.Ankle Sprain Discharge Instructions (Albanian)Knee Pain Discharge Instructions (Albanian)documented in this encounter Plan of Treatment Health Maintenance Due Date Last Done Comments DTaP/Tdap/Td Vaccines (1 - 1974 Tdap) HIV SCREENING 1978 LIPID DISORDER SCREENING 1981 PAP SMEAR 1984 MAMMOGRAM (SCREENING) 2003 ZOSTER IMMUNIZATION SERIES 2013 (1 of 2) URINE MICROALBUMIN 01/01/2018 01/01/2017 HEMOGLOBIN A1C 03/20/2019 12/20/2018, 03/01/2018, 11/10/2017, Additional history exists DEPRESSION SCREENING 06/27/2019 06/27/2018, 06/27/2018 FOOT EXAM 06/27/2019 06/27/2018, 06/27/2018, 06/27/2018, Additional history exists INFLUENZA VACCINE (#1) 2019 12/26/2018, 09/20/2017 Colonoscopy 07/27/2020 07/27/2019, 07/27/2019, 07/24/2019, Additional history exists Diabetic Eye Exam 08/31/2021 08/31/2019, 08/31/2019, 08/31/2019, Additional history exists PNEUMOCOCCAL 0-64 YRS Completed 05/14/2017 HEPATITIS A IMMUNIZATION Aged Out No longer eligible SERIES based on patient's age to complete this topic HPV IMMUNIZATION SERIES Aged Out No longer eligible based on patient's age to complete this topic MENINGOCOCCAL VACCINE IMM Aged Out No longer eligible based on patient's age to complete this topic documented as of this encounter Goals Goal Patient Goal Associated Recent Patient-Stated? Author Type Problems Progress Lack of Barrier No Jennifer insurance MD Viviana Note: This is an individualized goal for Evie Simpson: Our records indicate that you may not have health insurance. This can be a barrier to getting necessary medical care. Our business office may be able to help. Please call the [facility] at [phone] and schedule an appointment to evaluate your options. You may be eligible for a health insurance product which could help pay for your doctor's visits and medications. Blood Pressure < Blood Pressure 111/64 (11/26/2019 11:35 No Ceasar Leigh MD 140/90 PM EST) Note: This is an individualized treatment [...] lower numbers are better. Work with your Superintendent Power General Saleem Layton MD Note: This is an individualized treatment (frequent ED use) goal for Evie Simpson: Please work with your Superintendent Power, who will assist you in meeting your [...] individualized lifestyle goal for Evie Simpson: Please maintain a regular sleep schedule. This [...] Procedure Name Priority Date/Time Associated Comments Diagnosis XR ANKLE MIN 3 VIEWS STAT 11/26/2019 10:43 Results for this LEFT (STANDARD) PM EST procedure are in the results section. XR KNEE 4 OR MORE STAT 11/26/2019 9:11 Results for this VIEWS LEFT (STANDARD) PM EST procedure are in the results section. CT ABDOMEN PELVIS WITH STAT 11/26/2019 9:07 Results for this IV CONTRAST PM EST procedure are in the results section. CBC WITH DIFFERENTIAL STAT 11/26/2019 7:50 Results for this PM EST procedure are in the results section. RAINBOW LAB HOLD TUBES STAT 11/26/2019 7:50 Results for this PM EST procedure are in the results section. RAINBOW DRAW LIGHT STAT 11/26/2019 7:50 BLUE TOP PM EST COMPREHENSIVE STAT 11/26/2019 7:50 Results for this METABOLIC PANEL PM EST procedure are in the results section. documented in this encounter Results XR ANKLE MIN 3 VIEWS LEFT (STANDARD) (11/26/2019 10:43 PM EST) Specimen Impressions Performed At 1. Ankle soft tissue swelling without fracture or dislocation. Signed by Carmelo Valdivia on 11/26/2019 10:44 PM Narrative Performed At Procedure: XR ANKLE MIN 3 VIEWS LEFT (STANDARD) Date of service: 11/26/2019 10:35 PM History: 54 years, Female, "fell; ankle pain" Technique: 3 views of left ankle Comparison: None. Findings: There is no fracture or dislocation. The joint spaces are preserved. The talar dome is smooth. The ankle mortise is congruent. There is ankle soft tissue swelling. Procedure Note Interface, Rad Results - 11/26/2019 10:46 PM EST Procedure: XR ANKLE MIN 3 VIEWS LEFT (STANDARD) Date of service: 11/26/2019 10:35 PM History: 54 years, Female, "fell; ankle pain" Technique: 3 views of left ankle Comparison: None. Findings: There is no fracture or dislocation. The joint spaces are preserved. The talar dome is smooth. The ankle mortise is congruent. There is ankle soft tissue swelling. IMPRESSION 1. Ankle soft tissue swelling without fracture or dislocation. Signed by Carmelo Valdivia on 11/26/2019 10:44 PM XR KNEE 4 OR MORE VIEWS LEFT (STANDARD) (11/26/2019 9:11 PM EST) Specimen Impressions Performed At 1. No fracture or dislocation. Prepatellar soft tissue swelling. Signed by Carmelo Valdivia on 11/26/2019 9:19 PM Narrative Performed At Procedure: XR KNEE 4 OR MORE VIEWS LEFT (STANDARD) Date of service: 11/26/2019 9:01 PM History: 54 years, Female, "fell on knee with ecchymosis, pain, unable to ambulate" Technique: 4 views of left knee Comparison: None. Findings: There is no fracture or dislocation. The medial and lateral compartments are well-maintained. There is mild spurring of the patellofemoral compartment consistent with osteoarthritis. No joint effusion is identified. There is prepatellar soft tissue swelling. Procedure Note Interface, Rad Results - 11/26/2019 9:21 PM EST Procedure: XR KNEE 4 OR MORE VIEWS LEFT (STANDARD) Date of service: 11/26/2019 9:01 PM History: 54 years, Female, "fell on knee with ecchymosis, pain, unable to ambulate" Technique: 4 views of left knee Comparison: None. Findings: There is no fracture or dislocation. The medial and lateral compartments are well-maintained. There is mild spurring of the patellofemoral compartment consistent with osteoarthritis. No joint effusion is identified. There is prepatellar soft tissue swelling. IMPRESSION 1. No fracture or dislocation. Prepatellar soft tissue swelling. Signed by Carmelo Valdivia on 11/26/2019 9:[address] ABDOMEN PELVIS WITH IV CONTRAST (11/26/2019 9:07 PM EST) Specimen Impressions Performed At 1. No bowel obstruction or bowel wall thickening. 2. Enlarged and fatty liver. Signed by Carmelo Valdivia on 11/26/2019 9:23 PM Narrative Performed At Procedure: CT ABDOMEN PELVIS WITH IV CONTRAST Date of service: 11/26/2019 8:55 PM History: 54 years, Female, "distended abdomen; fell on stomach" Technique: Axial CT images of the abdomen and pelvis with contrast. Coronal and sagittal reformats were also performed. Comparison: 10/25/19 Findings: The lung bases are clear. The liver is hypodense and enlarged reflecting steatosis. Gallbladder is absent. Pancreas, spleen and adrenal glands are normal. There is no hydronephrosis. There is no bowel obstruction or bowel wall thickening. The appendix is absent. There is no pneumoperitoneum, ascites or lymphadenopathy. Bladder wall thickness is normal. The uterus is absent. There is no adnexal mass. No suspicious bony lesion is identified. Procedure Note Interface, Rad Results - 11/26/2019 9:25 PM EST Procedure: CT ABDOMEN PELVIS WITH IV CONTRAST Date of service: 11/26/2019 8:55 PM History: 54 years, Female, "distended abdomen; fell on stomach" Technique: Axial CT images of the abdomen and pelvis with contrast. Coronal and sagittal reformats were also performed. Comparison: 10/25/19 Findings: The lung bases are clear. The liver is hypodense and enlarged reflecting steatosis. Gallbladder is absent. Pancreas, spleen and adrenal glands are normal. There is no hydronephrosis. There is no bowel obstruction or bowel wall thickening. The appendix is absent. There is no pneumoperitoneum, ascites or lymphadenopathy. Bladder wall thickness is normal. The uterus is absent. There is no adnexal mass. No suspicious bony lesion is identified. IMPRESSION 1. No bowel obstruction or bowel wall thickening. 2. Enlarged and fatty liver. Signed by Carmelo Valdivia on 11/26/2019 9:23 PM RAINBOW DRAW LIGHT BLUE TOP (11/26/2019 7:50 PM EST) Specimen Blood - Blood specimen (specimen) Performing Organization Address City/State/Zipcode Phone Number [facility] [address] [place] [address] COMPREHENSIVE METABOLIC PANEL (11/26/2019 7:50 PM EST) Sodium 130 (L) 134 - 145 mmol/L [facility] Potassium 5.3 (H)Comment: 3.5 - 5.1 mmol/L [facility] Hemolyzed, results LABORATORY may be affected. Chloride 95 (L) 98 - 107 mmol/L [facility] CO2 25 22 - 30 mmol/L [facility] Calcium 9.7 8.3 - 10.1 mg/dl [facility] Albumin 4.4 3.5 - 5.0 g/dl [facility] BUN 23 (H)Comment: 7 - 17 mg/dl [facility] Hemolyzed, results LABORATORY may be affected. Creatinine 0.5 (L) 0.7 - 1.2 mg/dl [facility] Glucose 469 (H) 70 - 99 mg/dl [facility] Total Protein 8.0 6.3 - 8.2 g/dl [facility] Total Bilirubin 0.7 0.0 - 1.1 MG/DL [facility] AST 40Comment: 15 - 46 U/L [facility] GROUP Hemolyzed, results LABORATORY may be affected. ALT 28Comment: 9 - 52 U/L [facility] Hemolyzed, results LABORATORY may be affected. Alkaline 140Comment: 40 - 150 U/L [facility] Phosphatase [facility] GROUP Hemolyzed, results LABORATORY may be affected. eGFR >60 See Interpretation [facility] Comment: Below ml/min/1.73ml GROUP Estimated GFR [...] Study Equation which can be found at: https://www.kidney.org/content/qkrh-fycnc-mufmvhjc BUN/Creatinine 46 (H) 6 - 22 RATIO [facility] LABORATORY Anion Gap 10 3 - 11 mmol/L [facility] A/G Ratio 1.2 0.8 - 2.0 ratio [facility] Specimen Blood - Blood specimen (specimen) Performing Organization Address City/State/Zipcode Phone Number [facility] [address] [place] [address] [phone] CBC WITH DIFFERENTIAL (11/26/2019 7:50 PM EST) WBC Count 11.61 (H) 3.98 - 10.04 [facility] K/uL LABORATORY RBC Count 4.47 3.93 - 5.22 M/UL [facility] Hemoglobin 13.0 11.2 - 15.7 g/dL [facility] Hematocrit 37.9 34.1 - 44.9 % [facility] MCV 84.8 79.4 - 94.8 FL [facility] MCH 29.1 25.6 - 32.2 PG [facility] MCHC 34.3 32.2 - 35.5 g/dL [facility] Platelet Count 223 182 - 369 K/uL [facility] MPV 11.5 9.4 - 12.3 FL [facility] RDW 13.2 11.7 - 14.4 % [facility] Neutrophil % 77.3 (H) 34.0 - 71.1 % [facility] Lymphocyte % 17.4 (L) 19.3 - 51.7 % [facility] Monocyte % 3.5 (L) 4.7 - 12.5 % [facility] Eosinophil % 1.0 0.7 - 5.8 % [facility] Basophil % 0.4 0.1 - 1.2 % [facility] nRBC % 0.0 0.0 - 0.2 % [facility] Neutrophil # 8.96 (H) 1.56 - 6.13 K/UL [facility] Lymphocyte # 2.02 1.18 - 3.74 K/UL [facility] Monocyte # 0.41 0.24 - 0.86 K/UL [facility] Eosinophil # 0.12 0.04 - 0.36 K/UL [facility] Basophil # 0.05 0.01 - 0.08 K/UL [facility] Immature Gran % 0.4 0.0 - 0.4 % [facility] Immature Gran # 0.05 (H) 0.00 - 0.03 K/uL [facility] NRBC # 0.00 0.00 - 0.12 K/uL [facility] Specimen Blood - Blood specimen (specimen) Performing Organization Address City/State/Zipcode Phone Number [facility] [address] [place] [address] documented in this encounter Visit Diagnoses Diagnosis Acute pain of left knee Generalized abdominal pain Abdominal pain, generalized Acute left ankle pain documented in this encounter Administered Medications Medication Order MAR Action Action Date Dose Rate Site acetaminophen (TYLENOL) tablet Given 11/26/2019 7:59 PM EST 650 mg 650 mg 650 mg, Oral, NOW, 1 dose, 11/26/19 at 1945 GLARGINE insulin Given 11/26/2019 10:25 PM EST 40 Units Arm - Upper Right (LONG-Acting) injection 40 Units 40 Units, Subcutaneous, NOW, 1 dose, 11/26/19 at 2225, NOT FOR IV USE, iohexol (OMNIPAQUE) 350 MG/ML injectable Push 11/26/2019 9:05 PM EST 66 mL solution 66 mL 66 mL, Intravenous, NOW, 1 dose, 11/26/19 at 2105 normal saline bolus 1,000 mL New Bag 11/26/2019 10:29 PM EST 1,000 mL 1,000 mL, Intravenous, BOLUS, 1 dose, 11/26/19 at 2320 prochlorperazine (COMPAZINE) injection 5 mg Given 11/26/2019 7:59 PM EST 5 mg 5 mg, Intravenous Push, NOW, 1 dose, 11/26/19 at 1945 documented in this encounter Guarantor Name Account Type Relation to Date of Phone Billing Patient Address Evie Simpson Personal/Family 1965 [address] (Home) [facility] [phone] [place], [place] (Work) [id number] documented as of this encounter Advance Directives Code Status Date Activated Date Inactivated Comments Full Code 10/25/2019 5:48 PM 11/26/2019 6:38 PM Does the patient have decision making [...]
[2019-12-03 13:29] LABS: Urine Appearance Clear; Urine Bilirubin Negative (Negative); Urine Blood Negative (Negative); Urine Color Yellow; Urine Glucose 3+(>=500 mg/dL) (Negative); Urine Ketones Trace (Negative); Urine Nitrite Negative (Negative); Urine Protein Negative (Negative); Urine Specific Gravity 1.036 (1.010-1.030); Urine Urobilinogen Negative (Negative)
[2019-12-03 13:39] LABS: Albumin 4.4 g/dL (3.2-5.2); Albumin/Globulin Ratio 1.3 (1-3); Calcium 10.3 mg/dL (8.6-10.3); EGFR Non-African American 85.2 (>60); Globulin 3.3 g/dL (2-4); Total Bilirubin 0.4 mg/dL (0.2-1.0); Total Protein 7.7 g/dL (6.4-8.9)
[2019-12-03 13:41] LABS: Troponin I 0.01 ng/mL (<0.03)
[2019-12-03] MEDS ORDERED: Iodixanol* (CONTRAST) 320 MG/ML 100 ML SDV IV ONE (13:42)
[2019-12-03] MEDS ORDERED: Ondansetron INJ* 2 MG/ML VIAL IV ONE (15:01)
[2019-12-03 16:39] VITALS: BP 160/102
== END 2019-12-03 16:39 | disposition home or self-care (01) ==
LOC: ED 12:12
DX: R10.84 Generalized abdominal pain (principal); E11.65 Type 2 diabetes mellitus with hyperglycemia; Z79.4 Long term (current) use of insulin; K76.0 Fatty (change of) liver, not elsewhere classified; R00.0 Tachycardia, unspecified; R11.2 Nausea with vomiting, unspecified; E78.00 Pure hypercholesterolemia, unspecified; I10 Essential (primary) hypertension; J44.9 Chronic obstructive pulmonary disease, unspecified; K21.9 Gastro-esophageal reflux disease without esophagitis; F41.9 Anxiety disorder, unspecified; F32.9 Major depressive disorder, single episode, unspecified; Z86.711 Personal history of pulmonary embolism; Z90.49 Acquired absence of other specified parts of digestive tract; Z88.0 Allergy status to penicillin; Z88.2 Allergy status to sulfonamides; Z88.8 Allergy status to other drugs, medicaments and biological substances; F17.210 Nicotine dependence, cigarettes, uncomplicated
CPT/HCPCS: 36415; 74177; 80053; 81003; 83605; 83690; 84484; 85025; 86140; 93005; 96361; 96374; 96375; 96376; 99285; J2270; J2405; Q9967

== ENCOUNTER 2020-02-16 12:28 | Emergency (ER) | payer OTHER ==
--- OUTSIDE RECORDS SUMMARY | 2020-02-16 12:39 | XMS REPORT | Continuity of Care Document ---
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 [phone] Problems Active Problems Provider Date Type II [...] loss, bilateral Armen Goodman MD Onset: 08/28/2019 Dizziness and giddiness Armen Goodman MD Onset: 01/25/2020 Otalgia Armen Goodman MD Onset: 01/25/2020 Amnesia Armen Goodman MD Onset: 01/25/2020 Social History Type Date Description Comments Sex Unknown Cigarette Use Pack Years - 20 ETOH Use Never used alcohol Tobacco Use Start: Unknown Light tobacco smoker (10 or fewer cigarettes/day) Recreational Drug Use Denies Drug Use Tobacco Use Start: Unknown Patient is a current smoker, smokes every day Smoking Status Reviewed: 01/25/20 Patient is a current smoker, smokes every day Exercise Type/Frequency Does not exercise Allergies, Adverse Reactions, Alerts Active Allergies Reaction Severity Comments Date Sulfa Antibiotics 09/13/2018 Penicillin 09/13/2018 Reglan 09/13/2018 Medications Active Medications SIG Qnty Indications Ordering Date Provider Quetiapine Fumarate 1 at bedtime 90tabs Armen Goodman MD 01/25/2020 50mg Tablets Amoxicillin/Clavulanat take 1 pill twice 14tabs H92.01 Armen Goodman MD 01/25 e Potassium a day. 875-125mg Tablets Meclizine HCL 1 by mouth three 60tabs R42 Armen Goodman MD 01/25/2020 25mg times a day as Tablets needed for vertigo Nicotrol use every 2 hours 168units F17.210 Armen Goodman MD 08/28/2019 10mg Inhaler as needed for nicotine cravings. Gabapentin Take 2 Capsules 180caps Armen Goodman MD 06/23/2019 300mg Capsules By Mouth Three Times Daily Alcohol Prep use daily as 2000units Dian 03/16/2019 Pads directed DO Aylin Cyclobenzaprine HCL take 1 tablet by 90tabs Armen Goodman MD 12/12/2018 5mg mouth three times Tablets daily as needed Nicotine Transdermal 1 patch daily 28units Dian 12/12/2018 System Step 1 DO Aylin 21mg/24HR Patches 24HR Insulin for use with 100units E11.65 Dian 09/13/2018 Syringe/0.5ML/30G X admelog three Senner, DO 1/2" times a day with 30G X 1/2" 0.5 ML meals Misc Admelog 10u three times a 30ml E11.65 [facility] 09/13/2018 100Unit/ML day with each Senner, DO Solution meal Basaglar Kwikpen inject 50u twice 15ml E11.65 [facility] 09/13/2018 a day. . Senner, DO 100Unit/ML Solution Pen-Inject Lancets for use with your 100units E11.65 [facility] 09/13/2018 30G Misc glucometer Senner, DO Freestyle Test for blood glucose 100units E11.65 [facility] 09/13/2018 Strips monitoring at [facility], DO least 3 times a day. Freestyle System For blood glucose 1units E11.65 Armen Goodman MD 09/13/2018 Kit monitoring. Norvasc 1 by mouth every 30tabs Dian 10mg Tablets day , DO Lipitor one tab by mouth 30tabs Dian 20mg Tablets every night at [facility], DO bedtime Urecholine 4 times per day Unknown 25mg Tablets Prozac 1 by mouth every 30caps Dian 40mg Capsules day , DO Lisinopril 1 by mouth every 30tabs Dian 40mg Tablets day Senner, DO Miralax 17 grams by mouth 30units Armen Goodman MD Powder every day as needed Topiramate 1 tab twice a day 60tabs Dian 50mg Tablets Senner, DO Buprenorphine 2.5 tabs a day as Unknown HCL-Naloxone HCL needed 8-2mg Tablets Sub Promethazine HCL take 1 tablet by 90tabs Armen Goodman MD 25mg mouth every 8 Tablets hours as needed for nausea with headache Protonix 1 by mouth every 90tabs Armen Goodman MD 40mg Tablets DR day Clonidine HCL 1 tab by mouth 90tabs Armen Goodman MD 0.1mg three times a day Tablets Immunizations Description No Information Available Vital Signs Date Vital Result Comment 01/25/2020 9:57am Height 61 inches 5'1" Weight 145.00 lb Heart Rate 107 /min BP Systolic Sitting 177 mmHg BP Diastolic Sitting 94 mmHg Body Temperature 97.8 F O2 % BldC Oximetry 97 % BMI (Body Mass Index) 27.4 kg/m2 11/06/2019 1:41pm Height 61 inches 5'1" Weight 146.00 lb Heart Rate 73 /min BP Systolic 173 mmHg BP Diastolic 106 mmHg O2 % BldC Oximetry 97 % BMI (Body Mass Index) 27.6 kg/m2 Results Test Acquired Date Facility Test Result H/L Range Note Laboratory test 12/03/2019 [facility] Point of 281 mg/dL High 70-100 1 finding [address] [facility] [place] [address] [phone] CBC Auto Diff 12/03/2019 [facility] White Blood 7.6 10^3/uL Normal 3.5-10.[address] [place] [address] [phone] Red Blood Count 5.08 10^6/uL High 3.70-4.87 Hemoglobin 15.0 g/dL Normal 12.0-16.0 Hematocrit 44 % Normal 35-47 Mean Corpuscular Volume 87 fL Normal 80-97 Mean Corpuscular Hemoglobin 30 pg Normal 27-31 Mean Corpuscular HGB Conc 34 g/dL Normal 31-36 Red Cell Distribution Width 14 % Normal 10-15 Platelet Count 238 10^3/uL Normal 150-450 Mean Platelet Volume 9.8 fL Normal 7.4-10.4 Abs Neutrophils 5.5 10^3/uL Normal 1.5-7.7 Abs Lymphocytes 1.7 10^3/uL Normal 1.0-4.8 Abs Monocytes 0.2 10^3/uL Normal 0-0.8 Abs Eosinophils 0.1 10^3/uL Normal 0-0.6 Abs Basophils 0.1 10^3/uL Normal 0-0.2 Abs Nucleated RBC 0.0 10^3/uL Granulocyte % 72.8 % Lymphocyte % 22.5 % Monocyte % 3.0 % Eosinophil % 1.0 % Basophil % 0.7 % Nucleated Red Blood Cells % 0.1 Comp Metabolic Panel 12/03/2019 [facility] Sodium 134 mmol/L Low 135-145 [address] [place] [address] [phone] Potassium 4.0 mmol/L Normal 3.5-5.0 Chloride 101 mmol/L Normal 101-111 Co2 Carbon Dioxide 21 mmol/L Low 22-32 Anion Gap 12 mmol/L High 2-11 Glucose 429 mg/dL High 70-100 Blood Urea Nitrogen 22 mg/dL Normal 6-24 Creatinine 0.71 mg/dL Normal 0.51-0.95 BUN/Creatinine Ratio 31.0 High 8-20 Calcium 10.3 mg/dL Normal 8.6-10.3 Total Protein 7.7 g/dL Normal 6.4-8.9 Albumin 4.4 g/dL Normal 3.2-5.2 Globulin 3.3 g/dL Normal 2-4 Albumin/Globulin Ratio 1.3 Normal 1-3 Total Bilirubin 0.40 mg/dL Normal 0.2-1.0 Alkaline Phosphatase 155 U/L High 34-104 Alt 19 U/L Normal 7-52 Ast 14 U/L Normal 13-39 Egfr Non- 85.2 >60 Egfr 103.0 >60 2 Laboratory test 12/03/2019 [facility] Lipase 42 U/L Normal 11.0-82.0 finding [address] [place] [address] [phone] C Reactive Protein 9.00 mg/L High <8.01 Troponin-I (TnI) 0.01 ng/mL <0.03 3 Urinalysis Profile 12/03/2019 [facility] Urine Color Yellow [address] [place] [address] [phone] Urine Appearance Clear Urine Specific [place] 1.036 High 1.010-1.030 Urine pH 5.0 Normal 5-9 Urine Urobilinogen Negative Negative Urine Ketones Trace Abnormal Negative Urine Protein Negative Negative Urine Leukocytes Negative Negative Urine Blood Negative Negative Urine Nitrite Negative Negative Urine Bilirubin Negative Negative Urine Glucose 3+(>=500 mg/dL) Abnormal Negative Laboratory test 12/03/2019 [facility] Lactic Acid 2.0 mmol/L Normal 0.5-2.0 4 finding [address] [place] [address] [phone] Laboratory test 11/06/2019 [facility] Creatine 47 U/L Normal 10-223 finding 101 [facility] Kinase(CK) [place] [address] [phone] Comp Metabolic 11/06/2019 [facility] Sodium 139 mmol/L Normal 135-145 [place] [address] [phone] Potassium 4.3 mmol/L Normal 3.5-5.0 Chloride 105 mmol/L Normal 101-111 Co2 Carbon Dioxide 21 mmol/L Low 22-32 Anion Gap 13 mmol/L High 2-11 Glucose 220 mg/dL High 70-100 Blood Urea Nitrogen 14 mg/dL Normal 6-24 Creatinine 0.64 mg/dL Normal 0.51-0.95 BUN/Creatinine Ratio 21.9 High 8-20 Calcium 9.7 mg/dL Normal 8.6-10.3 Total Protein 7.1 g/dL Normal 6.4-8.9 Albumin 4.3 g/dL Normal 3.2-5.2 Globulin 2.8 g/dL Normal 2-4 Albumin/Globulin Ratio 1.5 Normal 1-3 Total Bilirubin 0.30 mg/dL Normal 0.2-1.0 Alkaline Phosphatase 100 U/L Normal 34-104 Alt 18 U/L Normal 7-52 Ast 15 U/L Normal 13-39 Egfr Non- 96.0 >60 Egfr 116.1 >60 5 Laboratory test 11/06/2019 [facility] Hemoglobin A1c 9.5 % High 4.0-5.6 6 finding (Glyco HGB) [place] [address] [phone] Ammonia 45 mcmol/L Normal 16-53 Syphillis Igg W/Reflex RPR Negative Negative D Dimer Quantitative < 200 ng/mL Normal Less Than 230 7 Laboratory 10/07/2019 [facility] Troponin-I 0.06 Critical < 0.04 8 test finding (TnI) ng/[place] [address] [phone] Lactic Acid 1.5 mmol/L Normal 0.5-2.0 9 CBC Auto 10/07/2019 [facility] White Blood 5.8 10^3/uL Normal 3.5-10.8 Diff [address] [place] [address] [phone] Red Blood Count 4.99 10^6/uL High 3.70-4.87 [...] Red Blood Cells % 0.2 Laboratory 10/07/2019 [facility] Lactic 2.6 mmol/L Critical 0.5-2.0 10 test finding [address] [place] [address] [phone] Troponin-I (TnI) 0.05 ng/mL Critical high <0.04 11 Comp Metabolic Panel 10/07/2019 [facility] Sodium 134 mmol/L Low 135-[address] [place] [address] [phone] Potassium 4.2 mmol/L Normal 3.5-5.0 Chloride 104 [...] Egfr Non- 81.2 >60 Egfr 98.2 >60 12 Laboratory test 10/07/2019 [facility] Lipase 60 U/L Normal 11.0-82.[address] [place] [address] [phone] C Reactive Protein 17.89 mg/L High <8.01 Urinalysis Profile 10/07/2019 [facility] Urine Color Straw [address] [place] [address] [phone] Urine Appearance Clear Urine Specific [place] 1.035 High 1.010-1.030 Urine pH 5.0 Normal 5-9 Urine Urobilinogen Negative Negative Urine Ketones Negative Negative Urine Protein Negative Negative Urine Leukocytes Negative Negative Urine Blood Negative Negative Urine Nitrite Negative Negative Urine Bilirubin Negative Negative Urine Glucose 3+(>=500 mg/dL) Abnormal Negative 1 Header Setup Operator: [id number] 2 Because ethnic data is not always readily [...] 15-29 5 Kidney failure <15 (or dialysis) 3 Troponin-I testing on Plasma Separator Tubes (PST) has a known false positive rate of 0.20-0.40%. All positive troponins reflex immediately to secondary confirmatory testing. Using the [employer] DxI 800 Access Immunoassay systems, the 99th percentile upper reference limit was demonstrated to be < 0.03 ng/mL. [address] [facility] Severe Sepsis and Septic Shock Management Bundle Measure requires all lactic acids initially measuring >2.0 mmol/L be repeated. 5 Because ethnic data is not always [...] 5 Kidney failure <15 (or dialysis) 6 Therapeutic target for the treatment of diabetes mellitus patients is <7% HBA1C, and in selective patients <6.0%. Please refer to [place] [employer] diabetic care guidelines for further information. 7 Please note: The following may produce a false positive D Dimer test: - Rheumatoid factor greater than 60 IU/ml - Plasma hemoglobin greater than 0.05 gm/dl - Bilirubin greater than 50 mg/dl - Lipids greater than 1000 mg/dl - FDP greater than 20 ug/ml 8 Result TnIDx:0.06 Called to [id number] at: 20:13:13 by:[id number] Read back by: [id number] Troponin-I testing on Plasma Separator Tubes (PST) has a known false positive rate of 0.20-0.40%. All positive troponins reflex immediately to secondary confirmatory testing. Using the [employer] DxI 800 Access Immunoassay systems, the 99th percentile upper reference limit was demonstrated to be < 0.03 ng/mL. 9 [facility] Severe Sepsis and Septic Shock Management Bundle Measure requires all lactic acids initially measuring >2.0 mmol/L be repeated. 10 Critical Result LACT:2.6 Called to [id number] at: 16:57:29 by:[id number] Read back by:[id number] [facility] Severe Sepsis and Septic Shock Management Bundle Measure requires all lactic acids initially measuring >2.0 mmol/L be repeated. 11 Result TnIDx:0.05 Called to [id number] at: 16:58:12 by:[id number] Read back by: [id number] Troponin-I testing on Plasma Separator Tubes (PST) has a known false positive rate of 0.20-0.40%. All positive troponins reflex immediately to secondary confirmatory testing. Using the [employer] DxI 800 Access Immunoassay systems, the 99th percentile upper reference limit was demonstrated to be < 0.03 ng/mL. 12 Because ethnic data is not always readily [...] 15-29 5 Kidney failure <15 (or dialysis) Procedures Date Code Description Status 10/11/2019 50394 EKG, Interpretation Only Completed 10/10/2019 03864 EKG, Interpretation Only Completed 10/09/2019 98332 EKG, Interpretation Only Completed 10/08/2019 44717 ECHO Transthorasic Realtime 2D W Doppler & Color Flow Completed Hosp 02/21/2018 94807697 Colonoscopy Completed Medical Devices Description No Information Available Encounters Type Date Location Provider Dx Diagnosis Office Visit 01/25/2020 [facility] Shekhar Goodman MD R42 Dizziness and 9:40a Medicine - Suite R giddiness H92.01 Otalgia, right ear I10 Essential (primary) hypertension K31.84 Gastroparesis R41.3 Other amnesia Office Visit 11/06/2019 1:40p Omero Goodman, E11.9 Type 2 diabetes Medicine - Suite mellitus without R complications M62.82 Rhabdomyolysis 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 quadrant pain Hospitalists K59.09 Other constipation E11.9 Type 2 diabetes mellitus without complications F11.99 Opioid use, unsp with unspecified opioid-induced disorder Office Visit 10/12/2019 [facility] Lisa K52.9 Noninfective 9:18a Assocvalerio D.O. 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 K31.84 Gastroparesis Z79.4 correction (current) use of insulin I10 Essential (primary) hypertension F11.99 Opioid use, unsp with unspecified opioid-induced disorder Office Visit 10/10/2019 7:00a [facility] Gastroenterology Lucian Knox R19.4 Change in MD Abdullahi bowel habit K56.41 Fecal impaction Office Visit 10/10/2019 [facility] Elizabeth K52.9 Noninfective 9:15a valerio Swanson MD gastroenteritis and Hospitalists colitis, unspecified I26.99 Other pulmonary embolism without acute cor pulmonale I10 Essential (primary) hypertension F11.988 Opioid use, unspecified with other opioid-induced disorder E11.40 Type 2 diabetes mellitus with diabetic neuropathy, unsp Office Visit 10/09/2019 [facility] Elizabeth K52.9 Noninfective 9:14a valerio Swanson MD gastroenteritis and Hospitalists colitis, unspecified I26.99 Other pulmonary embolism without acute cor pulmonale I10 Essential (primary) hypertension E11.40 Type 2 diabetes mellitus with diabetic neuropathy, unsp F11.90 Opioid use, unspecified, uncomplicated Z79.4 correction (current) use of insulin Office Visit 10/08/2019 [facility] Elizabeth K52.9 Noninfective 9:14a Assoc,pc MD Mi gastroenteritis and Hospitalists colitis, unspecified I26.99 Other pulmonary embolism without acute cor pulmonale I10 Essential (primary) hypertension Office Visit 10/07/2019 9:13a [facility] Bri Leidy, R10.32 Left lower Assoc,valerio MSoraidaD. 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 opioid-induced disorder 10/12/2019 Z79.4 correction (current) use of insulin Lisa Lito, D.O. 10/11/2019 Z13.6 Encounter for screening for Quirino Gallo M.D. cardiovascular disorders 10/11/2019 K52.9 Noninfective gastroenteritis and colitis, Lisa Lito, D.O. unspecified 10/11/2019 F32.9 Major depressive disorder, single Lisa Lito, D.O. episode, unspecified 10/11/2019 E11.43 Type 2 diabetes mellitus with diabetic Lisa Lito, D.O. autonomic (poly)neuropathy 10/11/2019 K31.84 Gastroparesis Lisa Lito, D.O. 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 10/11/2019 I10 Essential (primary) hypertension Lisa Lito, D.O. 10/11/2019 F11.99 Opioid use, unspecified with unspecified Lisa Lito, D.O. opioid-induced disorder 10/10/2019 R94.31 Abnormal electrocardiogram [ECG] [EKG] Quirino Gallo M.D. 10/10/2019 R19.4 Change in bowel habit Lucian [...] diabetic Elizabeth Stark MD neuropathy, unspecified 10/09/2019 Z13.6 Encounter for screening for Quirino Gallo M.D. 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 Elizabeth Stark MD [...] hypertension Armen Goodman MD Plan of Treatment 01/25/2020 - Armen Goodman, MDR42 Dizziness and giddinessNew Medication:Meclizine HCL 25 mg - 1 by mouth three times a day as needed for jajksubC89.01 Otalgia, right earNew Medication:Amoxicillin/Clavulanate Potassium 875-125 mg - take 1 pill twice a day.I10 Essential (primary) epuhillhcthpZ33.84 PawqupfvhttbvQ91.3 Other amnesia Functional Status Description No Information Available Mental Status Description No Information Available Referrals Refer to Dr Reason for Referral Status Appt [facility] Audiology b/l hearing loss [facility] [address] [place] [address] [phone] So Nolen AU.D b/l hearing loss; Called referral office, Sent refaxed 10/02 DO NOT PAR [address] [place] [address] [phone] Robert Sandhu MD hypercoag work up, unprovoked PE January 2019; Sent Called referral office, refaxed 10/[address] [place], [place] [id number] [phone]
--- OUTSIDE RECORDS SUMMARY | 2020-02-16 12:39 | XMS REPORT | Continuity of Care Document ---
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 . Senner, DO 100Unit/ML Solution Pen-Inject Lancets for use with your 100units E11.65 [facility] 09/13/2018 30G Misc glucometer Senner, DO Freestyle Test for blood glucose 100units E11.65 [facility] 09/13/2018 Strips monitoring at [facility], DO least 3 times a day. Freestyle System For blood glucose 1units E11.65 Armen Goodman MD 09/13/2018 Kit monitoring. Norvasc 1 by mouth every 30tabs Dian 10mg Tablets day , DO Lipitor one tab by mouth 30tabs Dian 20mg Tablets every night at [facility], DO bedtime Urecholine 4 times per day [...] Result H/L Range Note Laboratory test 12/03/2019 [facility] Point of 281 mg/dL High 70-[address] [facility] [place] [place] [address] [phone] CBC Auto Diff 12/03/2019 [facility] White Blood 7.6 10^3/uL Normal 3.5-10.[address] [place] [address] [phone] Red Blood Count 5.08 10^6/uL High 3.70-4.87 [...] Cells % 0.1 Comp Metabolic Panel 12/03/2019 [facility] Sodium 134 mmol/L Low 135-145 [address] [place] [address] [phone] Potassium 4.0 mmol/L Normal 3.5-5.0 Chloride 101 [...] Egfr 103.0 >60 2 Laboratory test 12/03/2019 [facility] Lipase 42 U/L Normal 11.0-82.0 finding [address] [place] [address] [phone] C Reactive Protein 9.00 mg/L High <8.01 Troponin-I (TnI) 0.01 ng/mL <0.03 3 Urinalysis Profile 12/03/2019 [facility] Urine Color Yellow [address] [place] [address] [phone] Urine Appearance Clear Urine Specific [place] 1.036 High 1.010-1.030 Urine pH 5.0 Normal 5-9 Urine Urobilinogen Negative Negative Urine Ketones Trace Abnormal Negative Urine Protein Negative Negative Urine Leukocytes Negative Negative Urine Blood Negative Negative Urine Nitrite Negative Negative Urine Bilirubin Negative Negative Urine Glucose 3+(>=500 mg/dL) Abnormal Negative Laboratory test 12/03/2019 [facility] Lactic Acid 2.0 mmol/L Normal 0.5-2.0 4 finding [address] [place] [address] [phone] Laboratory test 11/06/2019 [facility] Creatine 47 U/L Normal 10-[address] [facility] Kinase(CK) [place] [address] [phone] Comp Metabolic 11/06/2019 [facility] Sodium 139 mmol/L Normal 135-145 [place] [address] [phone] Potassium 4.3 mmol/L Normal 3.5-5.0 Chloride 105 [...] Egfr 116.1 >60 5 Laboratory test 11/06/2019 [facility] Hemoglobin A1c 9.5 % High 4.0-5.6 6 finding (Glyco HGB) [place] [address] [phone] Ammonia 45 mcmol/L Normal 16-53 Syphillis Igg W/Reflex RPR Negative Negative D Dimer Quantitative < 200 ng/mL Normal Less Than 230 7 Laboratory 10/07/2019 [facility] Troponin-I 0.06 Critical < 0.04 8 test finding (TnI) ng/[place] [address] [phone] Lactic Acid 1.5 mmol/L Normal 0.5-2.0 9 CBC Auto 10/07/2019 [facility] White Blood 5.8 10^3/uL Normal 3.5-10.8 Diff [address] [place] [address] [phone] Red Blood Count 4.99 10^6/uL High 3.70-4.87 [...] Red Blood Cells % 0.2 Laboratory 10/07/2019 [facility] Lactic 2.6 mmol/L Critical 0.5-2.0 10 test finding [address] [place] [address] [phone] Troponin-I (TnI) 0.05 ng/mL Critical high <0.04 11 Comp Metabolic Panel 10/07/2019 [facility] Sodium 134 mmol/L Low 135-[address] [place] [address] [phone] Potassium 4.2 mmol/L Normal 3.5-5.0 Chloride 104 [...] Egfr 98.2 >60 12 Laboratory test 10/07/2019 [facility] Lipase 60 U/L Normal 11.0-82.[address] [place] [address] [phone] C Reactive Protein 17.89 mg/L High <8.01 Urinalysis Profile 10/07/2019 [facility] Urine Color Straw [address] [place] [address] [phone] Urine Appearance Clear Urine Specific [place] 1.035 High 1.010-1.030 Urine pH 5.0 Normal 5-9 Urine Urobilinogen Negative Negative Urine Ketones Negative Negative Urine Protein Negative Negative Urine Leukocytes Negative Negative Urine Blood Negative Negative Urine Nitrite Negative Negative Urine Bilirubin Negative Negative Urine Glucose 3+(>=500 mg/dL) Abnormal Negative 1 [employer]: [id number] 2 Because ethnic data is not always [...] immediately to secondary confirmatory testing. Using the [employer] DxI 800 Access Immunoassay systems, the 99th percentile upper reference limit was demonstrated to be < 0.03 ng/mL. 4 [facility] Severe Sepsis and Septic Shock Management [...] in selective patients <6.0%. Please refer to [place] [employer] diabetic care guidelines for further information. 7 Please note: The following may produce a false positive D Dimer test: - Rheumatoid factor greater than 60 IU/ml - Plasma hemoglobin greater than 0.05 gm/dl - Bilirubin greater than 50 mg/dl - Lipids greater than 1000 mg/dl - FDP greater than 20 ug/ml 8 Result TnIDx:0.06 Called to [id number] at: 20:13:13 by:[id number] Read back by: [id number] Troponin-I testing on Plasma Separator Tubes (PST) has a known false positive rate of 0.20-0.40%. All positive troponins reflex immediately to secondary confirmatory testing. Using the [employer] DxI 800 Access Immunoassay systems, the 99th percentile upper reference limit was demonstrated to be < 0.03 ng/mL. 9 [facility] Severe Sepsis and Septic Shock Management Bundle Measure requires all lactic acids initially measuring >2.0 mmol/L be repeated. 10 Critical Result LACT:2.6 Called to [id number] at: 16:57:29 by:[id number] Read back by:[id number] [facility] Severe Sepsis and Septic Shock Management Bundle Measure requires all lactic acids initially measuring >2.0 mmol/L be repeated. 11 Result TnIDx:0.05 Called to [id number] at: 16:58:12 by:[id number] Read back by: [id number] Troponin-I testing on Plasma Separator Tubes (PST) has a known false positive rate of 0.20-0.40%. All positive troponins reflex immediately to secondary confirmatory testing. Using the [employer] DxI 800 Access Immunoassay systems, the 99th [...] dialysis) Procedures Date Code Description Status 10/11/2019 98986 EKG, Interpretation Only Completed 10/10/2019 12980 EKG, Interpretation Only Completed 10/09/2019 93802 EKG, Interpretation Only Completed 10/08/2019 07177 ECHO Transthorasic Realtime 2D W Doppler & Color Flow Completed Hosp 02/21/2018 [id number] Colonoscopy Completed Medical Devices Description No Information Available Encounters Type Date Location Provider Dx Diagnosis Office Visit 01/25/2020 [facility] Internal Armen Goodman MD R42 Dizziness and 9:40a Medicine - [address] giddiness H92.01 Otalgia, right ear I10 Essential (primary) hypertension K31.84 Gastroparesis R41.3 Other amnesia Office Visit 10/13/2019 9:18a [facility] R10.32 Left lower Assoc,valerio Kim M.D. quadrant pain Hospitalists K59.09 Other constipation E11.9 Type 2 diabetes mellitus without complications F11.99 Opioid use, unsp with unspecified opioid-induced disorder Office Visit 10/12/2019 [facility] Lisa K52.9 Noninfective 9:18a Assocvalerio D.O. gastroenteritis and Hospitalists colitis, unspecified I10 Essential (primary) hypertension F32.9 Major depressive disorder, single episode, unspecified F11.99 Opioid use, unsp with unspecified opioid-induced disorder Z79.4 terminal carman (current) use of insulin Office Visit 10/11/2019 [facility] Lisa K52.9 Noninfective 9:17a Assoc,valerio Morse D.O. 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 Elizabeth K52.9 Noninfective 9:15a Assocvalerio MD gastroenteritis and Hospitalists colitis, unspecified I26.99 Other pulmonary embolism without acute cor pulmonale I10 Essential (primary) hypertension F11.988 Opioid use, unspecified with other opioid-induced disorder E11.40 Type 2 diabetes mellitus with diabetic neuropathy, unsp Office Visit 10/09/2019 [facility] Elizabeth K52.9 Noninfective 9:14a valerio Swanson MD gastroenteritis and Hospitalists colitis, unspecified I26.99 Other pulmonary embolism without acute cor pulmonale I10 Essential (primary) hypertension E11.40 Type 2 diabetes mellitus with diabetic neuropathy, unsp F11.90 Opioid use, unspecified, uncomplicated Z79.4 terminal carman (current) use of insulin Office Visit 10/08/2019 [facility] Elizabeth K52.9 Noninfective 9:14a valerio Swanson MD gastroenteritis and Hospitalists colitis, unspecified I26.99 Other pulmonary embolism without acute cor pulmonale I10 Essential (primary) hypertension Office Visit 10/07/2019 9:13a [facility] Bri Forbes, R10.32 Left lower Assocvalerio M.D. quadrant pain Hospitalists F50.9 Eating disorder, unspecified Office Visit 08/28/2019 1:40p Clinical Nursing Coordinator Internal Armen Goodman MD R41.3 Other amnesia [...] M62.82 Rhabdomyolysis Armen Goodman MD 11/06/2019 Z79.4 detention (current) use of insulin Armen Goodman MD [...] disorder 10/12/2019 K52.9 Noninfective gastroenteritis and colitis, Claudio AntonyO. unspecified 10/12/2019 I10 Essential (primary) hypertension Lisa Lito, D.O. 10/12/2019 F32.9 Major depressive disorder, single Lisa Lito, D.O. episode, unspecified 10/12/2019 F11.99 Opioid use, unspecified with unspecified Lisa Lito, D.O. opioid-induced disorder 10/12/2019 Z79.4 detention (current) use of insulin Lisa Lito, D.O. 10/11/2019 Z13.6 Encounter for screening for Quirino Gallo M.D. cardiovascular disorders 10/11/2019 K52.9 Noninfective gastroenteritis and colitis, Lisa Lito, D.O. unspecified 10/11/2019 F32.9 Major depressive disorder, single Lisa Lito, D.O. episode, unspecified 10/11/2019 E11.43 Type 2 diabetes mellitus with diabetic Lisa Lito, D.O. autonomic (poly)neuropathy 10/11/2019 K31.84 Gastroparesis Lisa Lito, D.O. 10/11/2019 Z79.4 terminal carman (current) use of insulin Lisa Lito, D.O. [...] uncomplicated Elizabeth Stark MD 10/09/2019 Z79.4 terminal carman (current) use of insulin Elizabeth Stark MD [...] MD Plan of Treatment 01/25/2020 - Armen Goodman MDR42 Dizziness and giddinessNew Medication:Meclizine HCL 25 mg - 1 by mouth three times a day as needed for fpnujthL92.01 Otalgia, right earNew Medication:Amoxicillin/Clavulanate Potassium 875-125 mg - take 1 pill twice a day.I10 Essential (primary) aavsgvnachhgO51.84 TqnxwpxlfatoqC98.3 Other amnesia Functional Status Description No Information Available Mental Status Description No Information Available Referrals Refer to Dr Reason for Referral Status Appt [facility] Audiology b/l hearing loss Sent [address] [place] [address] [place] [address] [phone] So Nolen AU.D b/l hearing loss; Called referral office, Sent refaxed 10/02 DO NOT PAR [address] [place] [address] [phone] Robert Sandhu MD hypercoag work up, unprovoked PE January 2019; Sent Called referral office, refaxed 10/02 [address] [place] [address] [phone]
--- OUTSIDE RECORDS SUMMARY | 2020-02-16 12:39 | XMS REPORT | Summary of Care ---
:1965 Author Organization [facility] Address [address] [place] [address] Care Team Providers Name Role Phone Armen Goodman MD Primary Care Provider Reason for Visit Reason Comments Chest Pain Fatigue Auth/Cert Status Reason Specialty Diagnoses / Procedures Referred By Contact Referred To Contact Encounter Details Date Type Department Care Team Description 01/26/2020 - Hospital Encounter [facility] [address] [place] Mal English MD [address] [place] [address] [id number] Inpatient 01/30/2020 Jenniefr Shaikh DO [address] [place] [id number] 1 Luis Fink MD [address] [id number] [place] [id number] Allergies Active Allergy Reactions Severity Noted Date Comments Penicillins Other 12/07/2016 "Pass out" Reglan Other High 12/22/2016 Panick Attack. Sulfa Antibiotics Hives 12/07/2016 documented as of this encounter (statuses as of 01/31/2020) Medications Medication Sig Dispensed Refills Start Date End Date Status polyethylene glycol Take 1 PKT by 7 Packet 0 07/30/2017 Active (MIRALAX) Oral Pack mouth DAILY. Additional Information Patient taking differently: 17 g Oral BID, Reported on 12/25/2019 11:09 PM Buprenorphine HCl-Naloxone HCl Place 1 Film under 0 Active (SUBOXONE) 8-2 MG Sublingual tongue DAILY. Take 24 mg FILM daily in the mornings Insulin Glargine 100 UNIT/ML Inject 40-60 Units 12 Each 1 03/23/2018 Active Subcutaneous Solution beneath the skin TWICE Pen-injectorIndications: Type 2 DAILY. 60 units in the diabetes mellitus with diabetic am and 40 at night polyneuropathy, with long-term current use of insulin (HCC) Quetiapine Fumarate (SEROQUEL) Take 1 Tab by mouth 30 Tab 4 06/27/2018 Active 50 MG Oral TabIndications: EVERY BEDTIME NEEDED Severe single current episode (difficulty sleeping). of major depressive disorder, without psychotic features (HCC), Anxiety Fluoxetine HCl 40 MG Oral Take 1 Cap by mouth 30 Cap 2 06/27/2018 Active CapIndications: Severe single DAILY. current episode of major depressive disorder, without psychotic features (HCC), Anxiety Topiramate 50 MG Oral Take 1 Tab by mouth 60 Tab 5 06/27/2018 Active TabIndications: Anxiety, TWICE DAILY. G43.009 Nonintractable migraine, unspecified migraine type atorvastatin (LIPITOR) 20 MG Take 1 Tab by mouth 90 Tab 1 06/27/2018 Active Oral TabIndications: Mixed DAILY. hyperlipidemia gabapentin (NEURONTIN) 300 MG Take 600 mg by mouth 0 Active Oral Cap THREE TIMES DAILY. sucralfate (CARAFATE) 1 GM Oral Take 1 Tab by mouth FOUR 120 Tab 0 2017 Active Tab TIMES DAILY - BEFORE MEALS & NIGHTLY. 30 minutes before eating Additional Information Patient taking differently: 1 g Oral PRN, 30 minutes before eating, Reported on 12/25/2019 11:09 PM bethanechol Take 1 Tab by 120 Tab 5 05/29/2019 Active (URECHOLINE, DUVOID) 25 mouth FOUR MG Oral TabIndications: TIMES DAILY. Gastroparesis cloNIDine (CATAPRES) Take 0.5 Tabs 60 Tab 0 10/29/2019 Active 0.1 MG Oral Tab by mouth TWICE DAILY. pantoprazole (PROTONIX) Take 1 Tab by 30 Tab 5 11/02/2019 Active 40 MG Oral Tab EC mouth BEFORE BREAKFAST. promethazine Take 1 Tab by 12 Tab 0 06/27/2018 Discontinued (PHENERGAN) 25 MG Oral mouth EVERY 020 (Adverse Drug Tab EIGHT HOURS Reaction) NEEDED for nausea for up to 12 doses. apixaban (ELIQUIS) 5 MG Take by mouth 0 Discontinued Oral Tab TWICE DAILY. [address] 1 Patch 30 Patch 0 12/30/2019 Discontinued patch-daily (NICODERM) onto skin 020 (Other) 21 MG/24HR Transdermal DAILY for 30 PATCH 24 HR days. documented as of this encounter (statuses as of 01/31/2020) Active Problems Problem Noted Date Generalized abdominal pain 01/30/2020 Obstipation 01/30/2020 Influenza A 12/25/2019 Rhabdomyolysis 10/25/2019 Duodenal ulcer 07/28/2019 Ulcer of [...] as of this encounter (statuses as of 01/31/2020) Resolved Problems Problem Noted Date Resolved Date [...] as of this encounter (statuses as of 01/31/2020) Immunizations Name Administration Dates Next Due Influenza (IM) Preservative Free 12/26/2018, 09/09/2018 (), 09/20/2017 PNEUMOCOCCAL POLYSACCHARIDE VACCINE 05/14/2017 documented as of this encounter Social History Tobacco Use Types Packs/Day Years Used Date Current Some Day Smoker Cigarettes 0.1 20 Quit: 02/07/2019 Smokeless Tobacco: Never Used [...] or relatives? How often do you attend mormon or Never 10/25/2019 confucianist services? Do you belong to any clubs or No 10/25/2019 organizations such as mormon groups, unions, [employer] or athletic groups, or school groups? How [...] Assigned at Date Recorded Not on file documented as of this encounter Last Filed Vital Signs Vital Sign Reading Time Taken Comments Blood Pressure 143/93 01/30/2020 9:15 AM EST Pulse 115 01/30/2020 9:15 AM EST Temperature 37.3 01/30/2020 9:15 AM EST C (99.1 F) Respiratory Rate 18 01/30/2020 9:15 AM EST Oxygen Saturation 96% 01/30/2020 4:30 AM EST Inhaled Oxygen Concentration - - Weight 65.8 kg (145 lb) 01/26/2020 9:08 PM EST Height 154.9 cm (5' 1") 01/26/2020 9:08 PM EST Body Mass Index 27.4 01/26/2020 9:08 PM EST documented in this encounter Discharge Instructions Julianne Jordan RN - 01/30/2020 Provider's Instructions Reason for Admission or Diagnosis:Obstipation - abdominal pain Activity/Restrictions: activity as tolerated Skin/Wound Care: None needed Discharge Diet: Regular Diet Special Instructions: follow up with gastroenterology Discharge Provider: Luis Cruz MD Attending: Luis Cruz MD Time: 13:20 Nurse's Instructions Problems to report to your Physician: Excessive pain or discomfort Fever > 100.5 degrees Difficulty breathing Increase or smell in wound drainage Skin/Wound Care: Skin intact on discharge Medical Equipment/Supplies to help you at home:n/a Help arranged for you Home Health/Receiving Agency n/a Patient Education Constipation in Adults The Basics Written by the doctors and editors at [facility] What is constipation?Constipation is a common problem that makes it hard to have bowel movements. Your bowel movements might be: Too hard Too small Hard to get out Happening fewer than 3 times a week What causes constipation?Constipation can be caused by: Side effects of some medicines Poor diet Diseases of the digestive system (figure 1) What other symptoms should I watch for?These symptoms could signal a more serious problem: Blood in the toilet or on the toilet paper after having a bowel movement Fever Weight loss Feeling weak Is there anything I can do on my own to get rid of constipation? Yes. Try these steps: Eat foods that have a lot of fiber. Good choices are fruits, vegetables, prune juice, and cereal (table 1). Drink plenty of water and other fluids. When you feel the need to go to the bathroom, go to the bathroom. Don't hold it. Take laxatives. These are medicines that help make bowel movements easier to get out. Some are pills that you swallow. Others go into the rectum. These are called "suppositories." Should I see a doctor or nurse?See your doctor or nurse if: Your symptoms are new or not normal for you You do not have a bowel movement for a few days The problem comes and goes, but lasts for longer than 3 weeks You are in a lot of pain You have other symptoms that also worry you (for example, bleeding, weakness, weight loss, or fever) Other people in your family have had colorectal cancer or inflammatory bowel disease Are there tests I should have?Your doctor or nurse will decide which tests you should have based on your age, other symptoms, and individual situation. There are lots of tests, but youmight not need any. Here are the most common tests doctors use to find the cause of constipation: Rectal exam ? Your doctor will look at the outside of your anus. He or she will also use a finger to feel inside the opening. Sigmoidoscopy or colonoscopy ? For these tests, the doctor puts a thin tube into your anus. Then, he or she advances the tube into your large intestine. The large intestine is also called the colon. The tube has a camera attached to it, so the doctor can look inside your intestines. During these tests, the doctor can also take samples of tissue to look at under a microscope (figure 2). X-rays or MRI ? These create images of the inside of your body. Manometry studies ? Manometry allows the doctor to measure the pressure inside the rectumat various points. It can help the doctor find out if the muscles that control bowel movements are working right. The test also shows whether the person's rectum can feel normally. How is constipation treated?That depends on what is causing your constipation. First, your doctor will want you to try eating more fiber and drinking more water. If that doesn't help, your doctor might suggest: Medicines that you swallow or put in your rectum Changing the medicines you are taking for other conditions A treatment called an "enema" ? For this treatment, a doctor or nurse will squirt water into your rectum. He or she might also use a thin tool to help break up bowel movements that are stillinside you. You might also be able to give yourself enema treatments at home, too. Enemas can be just water, or they can contain medicine to help with constipation. Biofeedback ? This is a technique that teaches you to relax your muscles so you can let go and push bowel movements out. Can constipation be prevented?You can reduce your chances of getting constipation again by: Eating a diet that is full of fiber (table 1) Drinking water and other fluids during the day Going to the bathroom at regular times every day All topics are updated as new evidence becomes available and our peer review process is complete. This topic retrieved from [employer] on: Oct 03, 2019. Topic 17961 Version 7.0 Release: 27.4.5 - C27.318 ?2019?[employer]. and/or its affiliates.?All rights reserved. figure 1: Digestive system This drawing shows the organs in the body that process food. Together these organs are called "the digestive system," or "digestive tract." As food travels through this system, the body absorbs nutrients and water. Graphic 35093 Version 4.0 table 1: Amount of fiber in different foods Food Serving Grams of fiber Fruits Apple (with skin) 1 medium apple 4.4 Banana 1 medium banana 3.1 Oranges 1 orange 3.1 Prunes 1 cup, pitted 12.4 Juices Apple, unsweetened, with added ascorbic acid 1 cup 0.5 Grapefruit, white, canned, sweetened 1 cup 0.2 Grape, unsweetened, with added ascorbic acid 1 cup 0.5 [place] 1 cup 0.7 Vegetables Cooked Green beans 1 cup 4.0 Carrots 1/2 cup sliced 2.3 Peas 1 cup 8.8 Potato (baked, with skin) 1 medium potato 3.8 Raw [place] (with peel) 1 cucumber 1.5 Lettuce 1 cup shredded 0.5 Tomato 1 medium tomato 1.5 Spinach 1 cup 0.7 Legumes Baked beans, canned, no salt added 1 cup 13.9 Kidney beans, canned 1 cup 13.6 Garcia beans, canned 1 cup 11.6 Lentils, boiled 1 cup 15.6 Breads, pastas, flours Bran muffins 1 medium muffin 5.2 Oatmeal, cooked 1 cup 4.0 White bread 1 slice 0.6 Whole-wheat bread 1 slice 1.9 Pasta and rice, cooked Macaroni 1 cup 2.5 Rice, brown 1 cup 3.5 Rice, white 1 cup 0.6 Spaghetti (regular) 1 cup 2.5 Nuts Almonds 1/2 cup 8.7 Peanuts 1/2 cup 7.9 To learn how much fiber and other nutrients are in different foods, visit the [place] Department of Agriculture (USDA) Food[employer] Central website. Graphic 42955 Version 6.0 figure 2: Colonoscopy During a colonoscopy, you lie on your side and the doctor or nurse puts a thin tube with a camera into your anus (from behind). Then the doctor or nurse advances the tube into the rectum and colon. [employer] sends pictures from inside your colon to a television screen. Graphic 23855 Version 5.0 Consumer Information Use and Disclaimer This information is not specific medical advice and does not replace information you receive from your health care provider. This is only a brief summary of general information. It does NOT include allinformation about conditions, illnesses, injuries, tests, procedures, treatments, therapies, discharge instructions or life-style choices that may apply to you. You must talk with your health care provider for complete information about your health and treatment options. This information should not beused to decide whether or not to accept your health care provider's advice, instructions or recommendations. Only your health care provider has the knowledge and training to provide advice that is right for you.The use of [employer] content is governed by the [employer] Terms of Use. 2019 [employer]. All rights reserved. Copyright ?2019?[employer]. and/or its affiliates.?All rights reserved. documented in this encounter Progress Notes Luis Cruz MD - 01/29/2020 1:57 PM EST [address] [place] [address] Hospitalist Progress Note Date of Service: 01/29/2020 Patient: Evie Simpson B #: [id number] Attending: LUIS CRUZ MD ,MD Subjective: Pt feeling much better after laxative were giving. She moved her bowels several times. Very minimal pain now Physical: Objective: Blood pressure (!) 84/56, pulse 96, temperature 98.4 F (36.9 C), temperature source Temporal, resp. rate 18, height 5' 1" (1.549 m), weight 145 lb (65.8 kg), SpO2 94 %, not currentlybreastfeeding. General: alert Lungs: clear to auscultation Heart: regular rate and rhythm Abd: negative Ext: Extremities normal. No deformities, edema, or skin discoloration. Station and gait normal. Neuro: Mental status:awake, alert and oriented. Anxious Data: Recent Labs 01/26/208 01/27/20 0517 01/29/20 0830 WBC 7.61 6.98 5.56 HGB 14.6 13.0 11.9 HCT 44.2 39.6 37.5 PLAT 247 222 177* Recent Labs 01/27/20 0517 01/28/20 0725 01/29/20 0830 NA 137 136 137 K 3.4* 4.0 4.5 CL 108* 111* 110* CO2 20* 18* 21* GLUCOSE 60* 66* 146* BUN 11 17 23* CREATININE 0.5* 0.6* 0.7 CALCIUM 9.7 9.4 8.9 EGFR >60 >60 >60 Plan/Impression: Obstipation -improving -continues with lactulose today after mg citrate yesterday -Check KUB today -DC IV fluids -conts with liquid diet Chest pain -likely radiated from abdomen -it sound atypical but pt with risk factors -No EKG changes and negative troponin -d dimer elevated but CT chest negative Hypokalemia -replaced and resolved HTN -stable -holding clonidine for now DM -good control -conts with lantus and sliding scale coverage Hx of substance abuse -conts with suboxone -decreasing dilaudid Gastroparesis -conts with bethanechol, protonix and carafate Depression and anxiety -topamax and seroquel -start ativan Vertigo -re start meclizine DVT Prophylaxis: heparin GI Prophylaxis: protonix Nutrition: diabetic Dawson remains in place for the following reason(s): none Chaperon: Not consulted yet Smoking cessation counseling was provided for 0 minutes PT/OT: Not consulted yet Disposition: home likely tomorrow Author: Luis Cruz MD Luis Sinclair MD - 01/28/2020 12:26 PM EST [place] [address] Hospitalist Progress Note Date of Service: 01/28/2020 Patient: Evie Fountain #: [id number] Attending: LUIS CRUZ MD ,MD Subjective: Pt still c/o lower chest pain like sharp and colicky. Pt voicing a lot of pain but it doesn't match her physical expression. Physical: Objective: Blood pressure 132/74, pulse 75, temperature 97.7 F (36.5 C) , temperature source Temporal, resp. rate 18, height 5' 1" (1.549 m), weight 145 lb (65.8 kg), SpO2 93 %, not currently . General: alert Lungs: clear to auscultation Heart: regular rate and rhythm Abd: negative Ext: Extremities normal. No deformities, edema, or skin discoloration. Station and gait normal. Neuro: Mental status:awake, alert and oriented. Anxious Data: Recent Labs 01/26/20 2208 01/27/20 0517 WBC 7.61 6.98 HGB 14.6 13.0 HCT 44.2 39.6 PLAT 247 222 Recent Labs 01/26/20 2208 01/27/20 0517 01/28/20 0725 NA 142 137 136 K 3.6 3.4* 4.0 CL 106 108* 111* CO2 26 20* 18* GLUCOSE 80 60* 66* BUN 12 11 17 CREATININE 0.5* 0.5* 0.6* CALCIUM 9.9 9.7 9.4 EGFR >60 >60 >60 Plan/Impression: Chest pain -it sound atypical but pt with risk factors -No EKG changes and negative troponin -d dimer elevated but CT chest negative -order stress test in am and echo Hypokalemia -replaced and resolved HTN -stable -holding clonidine for now DM -good control -conts with lantus and sliding scale coverage Hx of substance abuse -conts with suboxone -decreasing dilaudid Gastroparesis -conts with bethanechol, protonix and carafate Depression and anxiety -topamax and seroquel -start ativan Vertigo -re start meclizine DVT Prophylaxis: heparin GI Prophylaxis: protonix Nutrition: diabetic Dawson remains in place for the following reason(s): none Chaperon: Not consulted yet Smoking cessation counseling was provided for 0 minutes PT/OT: Not consulted yet Disposition: home after stress test Author: Luis Cruz MD documented in this encounter Plan of Treatment Date Type Specialty Care Team Description 02/08/2020 Office Visit Gastroenterology Eden Jones NP [address] [place] [address] Health Maintenance Due Date Last Done Comments DTaP/Tdap/Td Vaccines (1 - 1974 Tdap) HIV SCREENING 1978 LIPID DISORDER SCREENING 1981 PAP SMEAR 1984 MAMMOGRAM (SCREENING) 2003 ZOSTER IMMUNIZATION SERIES 2013 (1 of 2) URINE MICROALBUMIN 01/01/2018 01/01/2017 DEPRESSION SCREENING 06/27/2019 06/27/2018, 06/27/2018 FOOT EXAM 06/27/2019 06/27/2018, 06/27/2018, 06/27/2018, Additional history exists INFLUENZA VACCINE (#1) 2019 12/26/2018, 09/20/2017 HEMOGLOBIN A1C 04/26/2020 01/27/2020, 12/20/2018, 03/01/2018, Additional history exists Colonoscopy 07/27/2020 07/27/2019, 07/27/2019, 07/24/2019, Additional history [...] Note: This is an individualized goal for Eviemayelin Simpson: Our records indicate that you may not have health insurance. This can be a barrier to getting necessary medical care. Our business office may be able to help. Please call the [facility] at [phone] and schedule an appointment to evaluate your options. You may be eligible for a health insurance product which could help pay for your doctor's visits and medications. Blood Pressure < Blood Pressure 143/93 (01/30/2020 9:15 No Ceasar Leigh MD 140/90 AM EST) [...] your depression. Glycohemoglobin A1c < 7.0 Diabetes 12.6 (01/27/2020 5:17 AM No Viviana [place] MD EST) Note: This is an individualized treatment (diabetes control, HgbA1C) goal for Evie Simpson: Displayed above is your progress towards your HgbA1C goal. Your goal is shown above (on the left); your most recent HgbA1C is shown on the right. Note that lower numbers are better. Work with your Trouble Lineman General Saleem Layton MD Note: This is an individualized treatment (frequent ED use) goal for Evie Simpson: Please work with your Trouble Lineman, who will assist you in meeting your [...] Regular appointments with primary care provider Lifestyle Saleem Layton MD (PCP) Note: This is an individualized lifestyle goal for Evie Simpson: Please schedule regular visits with your primary care provider (PCP). Care provided in your PCP's office can help reduce your need for additional trips to the Emergency Room. Keep a regular sleep schedule Lifestyle Viviana Villavicencio MD Note: This is an individualized lifestyle goal for Evie Simpson: Please maintain a regular sleep schedule. This may help with some symptoms of depression. Weight loss vs. 18 mo Lifestyle 6.1 (01/26/2020 9:08 PM No [place]on Card RN max (lbs) [...] Comments Diagnosis HC GLUCOSE, BY MONITOR Routine 01/30/2020 11:45 Results for this AM EST procedure are in the results section. XR ABDOMEN 1 AP VIEW Routine 01/30/2020 10:10 Results for this AM EST procedure are in the results section. HC GLUCOSE, BY MONITOR Routine 01/30/2020 7:59 Results for this AM EST procedure are in the results section. HC GLUCOSE, BY MONITOR Routine 01/29/2020 10:11 Results for this PM EST procedure are in the results section. HC GLUCOSE, BY MONITOR Routine 01/29/2020 4:25 Results for this PM EST procedure are in the results section. XR ABDOMEN 1 AP VIEW Routine 01/29/2020 3:16 Results for this PM EST procedure are in the results section. HC GLUCOSE, BY MONITOR Routine 01/29/2020 11:39 Results for this AM EST procedure are in the results section. COMPREHENSIVE METABOLIC Routine 01/29/2020 8:30 Results for this PANEL W/REFLEX MAGNESIUM AM EST procedure are in the results section. MAGNESIUM LEVEL Routine 01/29/2020 8:30 Results for this AM EST procedure are in the results section. CBC NO DIFFERENTIAL Routine 01/29/2020 8:30 Results for this AM EST procedure are in the results section. HC GLUCOSE, BY MONITOR Routine 01/29/2020 7:34 Results for this AM EST procedure are in the results section. CT HEAD HEADACHE Routine 01/28/2020 11:52 Results for this PM EST procedure are in the results section. HC GLUCOSE, BY MONITOR Routine 01/28/2020 8:33 Results for this PM EST procedure are in the results section. HC GLUCOSE, BY MONITOR Routine 01/28/2020 3:32 Results for this PM EST procedure are in the results section. CT ABDOMEN PELVIS WITH Routine 01/28/2020 2:53 Results for this IV CONTRAST PM EST procedure are in the results section. XR ABDOMEN 1 AP VIEW Routine 01/28/2020 1:44 Results for this PM EST procedure are in the results section. HC GLUCOSE, BY MONITOR Routine 01/28/2020 11:40 Results for this AM EST procedure are in the results section. T3, FREE STAT 01/28/2020 11:10 Results for this AM EST procedure are in the results section. ECHOCARDIOGRAM TTE Routine 01/28/2020 10:44 Results for this AM EST procedure are in the results section. HC GLUCOSE, BY MONITOR Routine 01/28/2020 7:45 Results for this AM EST procedure are in the results section. BASIC METABOLIC PANEL Routine 01/28/2020 7:25 Results for this AM EST procedure are in the results section. HC GLUCOSE, BY MONITOR Routine 01/27/2020 9:43 Results for this PM EST procedure are in the results section. HC GLUCOSE, BY MONITOR Routine 01/27/2020 3:21 Results for this PM EST procedure are in the results section. TROPONIN STAT 01/27/2020 11:25 Results for this AM EST procedure are in the results section. MAGNESIUM LEVEL Routine 01/27/2020 11:25 Results for this AM EST procedure are in the results section. FREE T4 STAT 01/27/2020 11:25 Results for this AM EST procedure are in the results section. HC GLUCOSE, BY MONITOR Routine 01/27/2020 10:50 Results for this AM EST procedure are in the results section. HC GLUCOSE, BY MONITOR Routine 01/27/2020 7:59 Results for this AM EST procedure are in the results section. CT CHEST PULMONARY STAT 01/27/2020 7:20 Results for this ARTERY EMBOLUS AM EST procedure are in the results section. VITAMIN B12 / FOLATE Routine 01/27/2020 5:17 Results for this AM EST procedure are in the results section. TROPONIN STAT 01/27/2020 5:17 Results for this AM EST procedure are in the results section. THYROID STIMULATING STAT 01/27/2020 5:17 Results for this HORMONE AM EST procedure are in the results section. MAGNESIUM LEVEL Routine 01/27/2020 5:17 Results for this AM EST procedure are in the results section. LIPASE Routine 01/27/2020 5:17 Results for this AM EST procedure are in the results section. COMPREHENSIVE METABOLIC STAT 01/27/2020 5:17 Results for this PANEL AM EST procedure are in the results section. PROTHROMBIN TIME Routine 01/27/2020 5:17 Results for this AM EST procedure are in the results section. D DIMER Routine 01/27/2020 5:17 Results for this AM EST procedure are in the results section. PARTIAL THROMBOPLASTIN Routine 01/27/2020 5:17 Results for this TIME AM EST procedure are in the results section. GLYCOHEMOGLOBIN A1C Routine 01/27/2020 5:17 Results for this AM EST procedure are in the results section. SEDIMENTATION RATE Routine 01/27/2020 5:17 Results for this AM EST procedure are in the results section. CBC WITH DIFFERENTIAL Routine 01/27/2020 5:17 Results for this AM EST procedure are in the results section. HC GLUCOSE, BY MONITOR Routine 01/27/2020 1:04 Results for this AM EST procedure are in the results section. HC GLUCOSE, BY MONITOR Routine 01/26/2020 11:39 Results for this PM EST procedure are in the results section. XR CHEST 2 VIEW PA AND STAT 01/26/2020 11:29 Results for this LATERAL (STANDARD) PM EST procedure are in the results section. HC GLUCOSE, BY MONITOR Routine 01/26/2020 10:35 Results for this PM EST procedure are in the results section. CBC WITH DIFFERENTIAL STAT 01/26/2020 10:08 Results for this PM EST procedure are in the results section. NT PROBNP STAT 01/26/2020 10:08 Results for this PM EST procedure are in the results section. TROPONIN STAT 01/26/2020 10:08 Results for this PM EST procedure are in the results section. COMPREHENSIVE METABOLIC STAT 01/26/2020 10:08 Results for this PANEL PM EST procedure are in the results section. HC GLUCOSE, BY MONITOR Routine 01/26/2020 9:22 Results for this PM EST procedure are in the results section. IN PT/ED 12 LEAD EKG STAT 01/26/2020 9:11 Results for this PM EST procedure are in the results section. documented in this encounter Results GLUCOSE (POCT) (01/30/2020 11:45 AM EST) Glucose POCT 180 (H) 70 - 99 mg/dl POINT OF CARE Result Comment: TESTING Performed at: [facility] POCT Rodo Garza MD, Laboratory Radial Router Operator [address] [address] Specimen Performing Organization Address City/State/Zipcode Phone Number POINT OF CARE TESTING XR ABDOMEN 1 AP VIEW (01/30/2020 10:10 AM EST) Specimen Impressions Performed At No acute findings. Urgency: Routine. This is a routine medical imaging report. Recommendation: No specific imaging recommendation. Signed by Golden Willard MD on 01/30/2020 10:36 AM Narrative Performed At Procedure(s): XR ABDOMEN 1 AP VIEW Date of service: 01/30/2020 9:38 AM Provided clinical information: 54 years, Female, "constipation" Procedure and materials: Standard protocol. Comparison studies: None. Observations: The bowel gas pattern is nonobstructed appearing. No free air is evident, although supine imaging does not reliably assess for this. No abnormal soft tissue masses are identified. No suspicious calcifications are seen. The osseous structures appear unremarkable. Procedure Note Interface, Rad Results - 01/30/2020 10:38 AM EST Procedure(s): XR ABDOMEN 1 AP VIEW Date of service: 01/30/2020 9:38 AM Provided clinical information: 54 years, Female, "constipation" Procedure and materials: Standard protocol. Comparison studies: None. Observations: The bowel gas pattern is nonobstructed appearing. No free air is evident, although supine imaging does not reliably assess for this. No abnormal soft tissue masses are identified. No suspicious calcifications are seen. The osseous structures appear unremarkable. IMPRESSION No acute findings. Urgency: Routine. This is a routine medical imaging report. Recommendation: No specific imaging recommendation. Signed by Golden Willard MD on 01/30/2020 10:36 AM GLUCOSE (POCT) (01/30/2020 7:59 AM EST) Glucose POCT 134 (H) 70 - 99 mg/dl POINT OF CARE Result Comment: TESTING Performed at: [facility] POCT Rodo Garza MD, Laboratory Radial Router Operator [address] [address] Specimen Performing Organization Address City/[facility] Phone Number POINT OF CARE TESTING GLUCOSE (POCT) (01/29/2020 10:11 PM EST) Glucose POCT 140 (H) 70 - 99 mg/dl POINT OF CARE Result Comment: TESTING Performed at: [facility] POCT Rodo Garza MD, Laboratory Radial Router Operator [address] [address] Specimen Performing Organization Address City/[facility] Phone Number POINT OF CARE TESTING GLUCOSE (POCT) (01/29/2020 4:25 PM EST) Glucose POCT 124 (H) 70 - 99 mg/dl POINT OF CARE Result Comment: TESTING Performed at: [facility] POCT Rodo Garza MD, Laboratory Radial Router Operator [address] [address] Specimen Performing Organization Address City/[facility] Phone Number POINT OF CARE TESTING XR ABDOMEN 1 AP VIEW (01/29/2020 3:16 PM EST) Specimen Impressions Performed At As above Urgency: Routine. This is a routine medical imaging report. Recommendation: No specific imaging recommendation. Signed by Laureen Evans MD on 01/29/2020 4:45 PM Narrative Performed At Procedure(s): XR ABDOMEN 1 AP VIEW Date of service: 01/29/2020 2:43 PM Provided clinical information: 54 years, Female, "constipation" Procedure and materials: Standard protocol. Comparison studies: January 28, 2020 Observations: Significant interval decrease in stool burden, no evidence of constipation. Nonobstructive bowel gas pattern Procedure Note Interface, Rad Results - 01/29/2020 4:47 PM EST Procedure(s): XR ABDOMEN 1 AP VIEW Date of service: 01/29/2020 2:43 PM Provided clinical information: 54 years, Female, "constipation" Procedure and materials: Standard protocol. Comparison studies: January 28, 2020 Observations: Significant interval decrease in stool burden, no evidence of constipation. Nonobstructive bowel gas pattern IMPRESSION As above Urgency: Routine. This is a routine medical imaging report. Recommendation: No specific imaging recommendation. Signed by Laureen Evans MD on 01/29/2020 4:45 PM GLUCOSE (POCT) (01/29/2020 11:39 AM EST) Glucose POCT 89 70 - 99 mg/dl POINT OF CARE Result Comment: TESTING Performed at: [facility] POCT Rodo Garza MD, Laboratory Radial Router Operator [address] [address] Specimen Performing Organization Address City/[facility] Phone Number POINT OF CARE TESTING MAGNESIUM LEVEL (01/29/2020 8:30 AM EST) Magnesium 2.2 1.6 - 2.3 MG/DL [facility] Specimen Blood - Blood specimen (specimen) Performing Organization Address City/[facility]/Zipcode Phone Number [facility] [address] [address] COMPREHENSIVE METABOLIC PANEL W/REFLEX MAGNESIUM (01/29/2020 8:30 AM EST) Sodium 137 134 - 145 mmol/L [facility] Potassium 4.5 3.5 - 5.1 mmol/L [facility] Chloride 110 (H) 98 - 107 mmol/L [facility] CO2 21 (L) 22 - 30 mmol/L [facility] Calcium 8.9 8.3 - 10.1 mg/dl [facility] Albumin 3.2 (L) 3.5 - 5.0 g/dl [facility] BUN 23 (H) 7 - 17 mg/dl [facility] Creatinine 0.7 0.7 - 1.2 mg/dl [facility] Glucose 146 (H) 70 - 99 mg/dl [facility] Total Protein 5.9 (L) 6.3 - 8.2 g/dl [facility] Total Bilirubin 0.3 0.0 - 1.1 MG/DL [facility] AST 34 15 - 46 U/L [facility] ALT 41 9 - 52 U/L [facility] Alkaline 144 40 - 150 U/L [facility] LABORATORY eGFR >60 See Interpretation [facility] Comment: Below ml/min/1.73ml GROUP Estimated GFR Interpretation: Sq LABORATORY Above 60ml/min/1.73m2 = Normal Renal Function 30-59 ml/min/1.73m2 = Stage 3 Chronic Kidney Disease 15-29 ml/min/1.73m2 = Stage 4 Chronic Kidney Disease Less than 15 ml/min/1.73m2 = Stage 5 Chronic Kidney Disease The GFR value is calculated using the Modification of Diet in Renal Disease ( MDRD) Study Equation which can be found at: https://www.kidney.org/content/hziv-dquoh-kfjknvnu BUN/Creatinine 33 (H) 6 - 22 RATIO [facility] LABORATORY Anion Gap 6 3 - 11 mmol/L [facility] A/G Ratio 1.2 0.8 - 2.0 ratio [facility] Specimen Blood - Blood specimen (specimen) Performing Organization Address City/State/Zipcode Phone Number [facility] [address] [place] [address] CBC NO DIFFERENTIAL (01/29/2020 8:30 AM EST) WBC Count 5.56Comment: 3.98 - 10.04 [facility] was K/uL GROUP LABORATORY changed 12/01/2018. Please note updated reference range and units. RBC Count 4.16 3.93 - 5.22 [facility] M/UL [facility] Hemoglobin 11.9 11.2 - 15.7 [facility] g/dL [facility] LAB[facility] Hematocrit 37.5 34.1 - 44.9 % [facility] MCV 90.1 79.4 - 94.8 [facility] [place] [facility] MCH 28.6 25.6 - 32.2 [facility] MCHC 31.7 (L) 32.2 - 35.5 [facility] g/dL [facility] LAB[facility] Platelet Count 177 (L) 182 - 369 [facility] K/uL [facility] MPV 11.6 9.4 - 12.3 [place] [facility] RDW 13.7 11.7 - 14.4 % [facility] Specimen Blood - Blood specimen (specimen) Performing Organization Address [facility] Phone Number [facility] [address] [place] [place] [address] [phone] GLUCOSE (POCT) (01/29/2020 7:34 AM EST) Glucose POCT 151 (H) 70 - 99 mg/dl POINT OF CARE Result Comment: TESTING Performed at: [facility] POCT Rodo Garza MD, Laboratory Radial Router Operator [address] [place] [address] Specimen Performing Organization Address City/[facility] Phone Number POINT OF CARE TESTING CT HEAD HEADACHE (01/28/2020 11:52 PM EST) Specimen Impressions Performed At No acute intracranial abnormality. Signed by Nadir Lynn on 01/29/2020 12:00 AM Narrative Performed At Procedure(s): CT HEAD HEADACHE Date of service: 01/28/2020 11:39 PM Provided clinical information: 54 years, Female, "Confusion/delirium, altered LOC, unexplained" Procedure and materials: Standard axial noncontrast head CT is performed with sagittal and coronal reformatted images provided. Comparison studies: 03/01/2018 Observations: The ventricles are normal size and configuration. The convexity sulci and basal cisterns are preserved. The frazier-white differentiation is normal with no evidence of regional infarct. There is no mass effect or midline shift. There is no intracranial hemorrhage. The calvarium is intact. The paranasal sinuses and mastoid air cells are grossly unremarkable. Procedure Note Interface, Rad Results - 01/29/2020 12:02 AM EST Procedure(s): CT HEAD HEADACHE Date of service: 01/28/2020 11:39 PM Provided clinical information: 54 years, Female, "Confusion/delirium, altered LOC, unexplained" Procedure and materials: Standard axial noncontrast head CT is performed with sagittal and coronal reformatted images provided. Comparison studies: 03/01/2018 Observations: The ventricles are normal size and configuration. The convexity sulci and basal cisterns are preserved. The frazier-white differentiation is normal with no evidence of regional infarct. There is no mass effect or midline shift. There is no intracranial hemorrhage. The calvarium is intact. The paranasal sinuses and mastoid air cells are grossly unremarkable. IMPRESSION No acute intracranial abnormality. Signed by Nadir Lynn on 01/29/2020 12:00 AM GLUCOSE (POCT) (01/28/2020 8:33 PM EST) Glucose POCT 215 (H) 70 - 99 mg/dl POINT OF CARE Result Comment: TESTING Performed at: [facility] POCT Rodo Garza MD, Laboratory Radial Router Operator [address] [address] Specimen Performing Organization Address [facility] Phone Number POINT OF CARE TESTING GLUCOSE (POCT) (01/28/2020 3:32 PM EST) Glucose POCT 186 (H) 70 - 99 mg/dl POINT OF CARE Result Comment: TESTING Performed at: [facility] POCT Rodo Garza MD, Laboratory Radial Router Operator [address] [address] Specimen Performing Organization Address [facility] Phone Number POINT OF CARE TESTING CT ABDOMEN PELVIS WITH IV CONTRAST (01/28/2020 2:53 PM EST) Specimen Impressions Performed At 1. Large amount of stool throughout the colon consistent with constipation, which has worsened since the prior exam. Mild degree of wall thickening involving the hepatic flexure/proximal transverse colon (series 2, image 87), concerning for a mild segmental stercoral colitis. 2. Small amount of ascites in the left paracolic gutter. Urgency: Routine. This is a routine medical imaging report. Recommendation: No specific imaging recommendation. Signed by Bereket Mena on 01/28/2020 3:21 PM Narrative Performed At Procedure(s): CT ABDOMEN PELVIS WITH IV CONTRAST Date of service: 01/28/2020 2:45 PM Provided clinical information: 54 years, Female, "Abdominal pain, unspecified" Procedure and materials: Standard protocol. Contrast: 79 cc of Omnipaque 350 intravenous contrast material. Comparison studies: 12/25/2019 Findings: Evaluation of the lungs bases demonstrate no significant abnormality. There is no pleural effusion. The heart appears within normal limits in size, with no pericardial effusion. The liver is within normal limits in size, with no discrete hepatic lesion seen. There is no intra- or extrahepatic biliary ductal dilatation. The gallbladder is surgically absent. The pancreas is within normal limits. The spleen and adrenal glands are normal in appearance, again noting a small right adrenal myelolipoma. The kidneys are normal in size, and appear to enhance symmetrically. There is no evidence of hydroureteronephrosis or perinephric fat stranding. No discrete cystic or solid lesions are seen in either kidney. No renal or ureteral calculi are seen. There is mild aortoiliac atherosclerotic calcification. There are scattered mesenteric and retroperitoneal sub-centimeter lymph nodes, with no nodes identified which meet CT size criteria for pathologic enlargement. Stomach and small bowel are grossly unremarkable. There is again a large amount of stool throughout the colon consistent with constipation, which has worsened since the prior exam. There is also a mild degree of wall thickening involving the hepatic flexure/proximal transverse colon (series 2, image 87), which may reflect a mild segmental stercoral colitis. The appendix is appears to be surgically absent. There is no evidence of pneumoperitoneum. There is a small amount of ascites in the left paracolic gutter. The urinary bladder is poorly distended, limiting evaluation. Patient is status post hysterectomy. There is no pelvic ascites or lymphadenopathy. Evaluation of the osseous structures demonstrates no significant abnormality. Procedure Note Interface, Rad Results - 01/28/2020 3:24 PM EST Procedure(s): CT ABDOMEN PELVIS WITH IV CONTRAST Date of service: 01/28/2020 2:45 PM Provided clinical information: 54 years, Female, "Abdominal pain, unspecified" Procedure and materials: Standard protocol. Contrast: 79 cc of Omnipaque 350 intravenous contrast material. Comparison studies: 12/25/2019 Findings: Evaluation of the lungs bases demonstrate no significant abnormality. There is no pleural effusion. The heart appears within normal limits in size, with no pericardial effusion. The liver is within normal limits in size, with no discrete hepatic lesion seen. There is no intra- or extrahepatic biliary ductal dilatation. The gallbladder is surgically absent. The pancreas is within normal limits. The spleen and adrenal glands are normal in appearance, again noting a small right adrenal myelolipoma. The kidneys are normal in size, and appear to enhance symmetrically. There is no evidence of hydroureteronephrosis or perinephric fat stranding. No discrete cystic or solid lesions are seen in either kidney. No renal or ureteral calculi are seen. There is mild aortoiliac atherosclerotic calcification. There are scattered mesenteric and retroperitoneal sub-centimeter lymph nodes, with no nodes identified which meet CT size criteria for pathologic enlargement. Stomach and small bowel are grossly unremarkable. There is again a large amount of stool throughout the colon consistent with constipation, which has worsened since the prior exam. There is also a mild degree of wall thickening involving the hepatic flexure/proximal transverse colon (series 2, image 87), which may reflect a mild segmental stercoral colitis. The appendix is appears to be surgically absent. There is no evidence of pneumoperitoneum. There is a small amount of ascites in the left paracolic gutter. The urinary bladder is poorly distended, limiting evaluation. Patient is status post hysterectomy. There is no pelvic ascites or lymphadenopathy. Evaluation of the osseous structures demonstrates no significant abnormality. IMPRESSION 1. Large amount of stool throughout the colon consistent with constipation, which has worsened since the prior exam. Mild degree of wall thickening involving the hepatic flexure/proximal transverse colon (series 2, image 87), concerning for a mild segmental stercoral colitis. 2. Small amount of ascites in the left paracolic gutter. Urgency: Routine. This is a routine medical imaging report. Recommendation: No specific imaging recommendation. Signed by Bereket Mena on 01/28/2020 3:21 PM XR ABDOMEN 1 AP VIEW (01/28/2020 1:44 PM EST) Specimen Impressions Performed At Nonobstructive bowel gas pattern. Large amount of stool in the left colon and rectum. Urgency: Routine. This is a routine medical imaging report. Recommendation: No specific imaging recommendation. Signed by Bereket Mena on 01/28/2020 2:04 PM Narrative Performed At Procedure(s): XR ABDOMEN 1 AP VIEW Date of service: 01/28/2020 1:38 PM Provided clinical information: 54 years, Female, "constipation" Procedure and materials: Standard protocol. Comparison studies: 07/27/2017 Observations: AP standing radiographs of the abdomen were performed. The bowel gas pattern is nonobstructive. There is a large amount of stool in the left colon and rectum. There is one or 2 air-fluid levels in the abdomen, which may be within colon and reflecting intraluminal fluid. There are no findings in the abdomen to suggest organomegaly or significant mass effect. There is no pneumoperitoneum. Surgical clips are seen in the right upper quadrant. Degenerative changes are seen in the lumbar spine. Procedure Note Interface, Rad Results - 01/28/2020 2:06 PM EST Procedure(s): XR ABDOMEN 1 AP VIEW Date of service: 01/28/2020 1:38 PM Provided clinical information: 54 years, Female, "constipation" Procedure and materials: Standard protocol. Comparison studies: 07/27/2017 Observations: AP standing radiographs of the abdomen were performed. The bowel gas pattern is nonobstructive. There is a large amount of stool in the left colon and rectum. There is one or 2 air-fluid levels in the abdomen, which may be within colon and reflecting intraluminal fluid. There are no findings in the abdomen to suggest organomegaly or significant mass effect. There is no pneumoperitoneum. Surgical clips are seen in the right upper quadrant. Degenerative changes are seen in the lumbar spine. IMPRESSION Nonobstructive bowel gas pattern. Large amount of stool in the left colon and rectum. Urgency: Routine. This is a routine medical imaging report. Recommendation: No specific imaging recommendation. Signed by Bereket Mena on 01/28/2020 2:04 PM GLUCOSE (POCT) (01/28/2020 11:40 AM EST) Glucose POCT 208 (H) 70 - 99 mg/dl POINT OF CARE Result Comment: TESTING Performed at: [facility] POCT Rodo Garza MD, Laboratory Radial Router Operator [address] [address] Specimen Performing Organization Address City/State/Zipcode Phone Number POINT OF CARE TESTING T3, FREE (01/28/2020 11:10 AM EST) T3,Free 2.73 2.27 - 6.16 pg/ml [facility] Specimen Blood - Blood specimen (specimen) Performing Organization Address City/State/Zipcode Phone Number [facility] [address] [address] ECHOCARDIOGRAM TTE (01/28/2020 10:44 AM EST) ECHOCARDIOGRAM TTE ECHOCARDIOGRAPHY REPORT CARDIOLOGY DEPARTMENT Patient Name: DARVIN OTOOLE Status: Inpatient MR Number: [id number] Gender: Female : 1965 Location: [place] Age:54 year(s) Exam Date: 01/28/2020 10:44 AM Height: 61 inches Weight: 145 pounds Study Performed: 2D echocardiogram, M-Mode, Doppler , Color Doppler, ECHOCARDIOGRAM TTE, Echocardiogram . Ordering JENNIFER NAVARRO DO Provider: Referring LUIS CRUZ Provider: MD ARMEN GOODMAN MD Marine Geologist: George MUNIZ, [facility] Room Number J36 Interpreting ONEYDA Physician DEPERSIS DO BSA: 1.65 m^2 Interpreting BMI: 27.4 kg/m^2 Fellow Nurse Technical Quality: Adequate visualization Heart Rate (HR): 67bpm Blood Pressure (BP): 122/81mmHg INDICATION FOR STUDY: Chest pain. FINAL IMPRESSION: Mild eccentric LVH. Global systolic function is normal with estimated LV EF 55-60%. Normal right heart size and RV systolic function. No hemodynamically significant valve disease. Pulmonary arterial systolic pressure cannot be accurately estimated from this study. Mild aortic root and ascending aorta dilation. Trivial pericardial effusion. Compared to the prior study from 11/11/2017, there appears to be no significant change. OBSERVATIONS & FINDINGS: Using 2d (3d if applicable), M-mode, Colorflow, Continuous wave doppler and Pulse wave doppler interrogation Left Ventricle Mild eccentric LVH. No evidence of LVOT obstruction. Global systolic function is normal, with an estimated ejection fraction of 55-60 %. No regional wall motion abnormalities. Left Atrium The left atrium is normal in size. Mitral Valve The mitral valve is mildly thickened with normal mobility. There is trivial to mild mitral regurgitation. There is no mitral stenosis. Aortic Valve Aortic valve is tricuspid, with normal leaflet structure and mobility. There is no aortic stenosis or regurgitation. Right Ventricle The right ventricle is normal in size with preserved contractility. Right Atrium The right atrium is normal in size. Tricuspid Valve The tricuspid valve is structurally normal with mobile leaflets. Pulmonary artery systolic pressure could not be reliably estimated from this study. Pulmonic Valve Pulmonic valve is structurally normal with flexible leaflets. There is trace pulmonic regurgitation. Pericardium / Pleura There is trivial pericardial effusion. There is no echocardiographic evidence of tamponade physiology. Miscellaneous Mild aortic root and ascending aorta dilation. Interatrial septum appears intact by 2D imaging and Color Doppler interrogation. No evidence of PFO or ASD. Measurements & Calculations: M-Mode / 2D Measurements Value Normal Value Normal LVIDd: 3.96 cm 3.5-5.5 AO Root: 3.31 cm 2.0-3.7 LVIDs: 2.74 cm 3.0-4.0 LA Dimension: cm 1.9-4.0 IVSd: 1.14 cm 0.7-1.1 LVOT: 1.94 cm 1.5-2.5 LVPWD: 1.28 cm 0.7-1.1 RV Diastolic Dimension: 3 cm EF Estimated: 55 % 50-70% Doppler Measurements & Calculations: Mitral: Aortic: Area (PHT): 3.89 cm^2 LVOT VTI: 20.9 cm Peak E-Wave: 67.2 cm/s Peak Velocity: 140 cm/s Peak A-Wave: 80.4 cm/s Peak Gradient: 7.84 mmHg Peak Gradient: 1.81 mmHg P1/2t: 56.5 msec Area (continuity): 2.025557 cm^2 AV Area Index:1.28 Mean Velocity: 99.9 cm/s Mean Gradient: 4 mmHg Deceleration Time: 184 msec AV VTI: 29.2 cm MR Velocity: 410 cm/s E/A Ratio: 0.84 Pulmonic: Peak Velocity: 82.4 cm/s Peak Gradient: 2.72 mmHg UT ED Velocity: 105 cm/s LA Dimension: 3.6 cm RA dimension:3.2 cm LA/Aorta: 1.09 RA area:11.8 cm^2 LA Area: 16.2 cm^2 LA Volume/Index: 46.65 ml /28m^2 Diastolic Dimension: 3.96 cm Septum Diastolic: 1.14 cm PW Diastolic: 1.28 cm Ward dimension:3 cm RPWT:0.32 Area Diastolic: 26.91 cm^2 EF Calculated: 55.38% CO: 4.14 l/min LV Mass: 140.18 g LV Epicardial Area: 31.8 cm^2 LVOT FS: 30.81 % Peak Velocity: 103 cm/s LV Length: 7.25 cm Peak Gradient: 4 mmHg LVOT Diameter: 1.94 cm LVOT Diameter: 1.94 cm Systolic Dimension: 2.74 cm Mean Velocity: 70.3 cm/s Mean Gradient: 2 mmHg Area Systolic: 17.37 cm^2 LVOT VTI: 20.9 cm EF Estimated: 55% LVOT Horacio / AV Horacio:0.74 CI: 2.51 l/min*m^2 LVOT VTI / AV VTI:0.72 LV Mass Index: 85 g/m^2 Aorta LV Endocardial Area: 14.3 cm^2 Aortic Root: 3.31 cm LV EDV/LV EDV Index: 84.5 ml/51 m^2 Ascending Aorta: 3.24 cm LV ESV/LV ESV Index: 37.7 ml/23 m^2 Asc. Aorta Index:1.96 LVOT Diameter: 1.94 cm Signature Ejection Fraction 55 % CARDIOLOGY DEPARTMENT AV AREA 2.746466 cm2 CARDIOLOGY DEPARTMENT RVSP mmHg CARDIOLOGY DEPARTMENT LA Volume 46.65 ml CARDIOLOGY DEPARTMENT LVEDd 3.96 cm CARDIOLOGY DEPARTMENT LVESd 2.74 cm CARDIOLOGY DEPARTMENT IVSd 1.14 cm CARDIOLOGY DEPARTMENT LVPWd 1.28 cm CARDIOLOGY DEPARTMENT ESV 37.7 ml CARDIOLOGY DEPARTMENT EDV 84.5 ml CARDIOLOGY DEPARTMENT AV Mean Gradient 4 mmHg CARDIOLOGY DEPARTMENT Specimen Performing Organization Address [facility] Phone Number CARDIOLOGY DEPARTMENT GLUCOSE (POCT) (01/28/2020 7:45 AM EST) Glucose POCT 78 70 - 99 mg/dl POINT OF CARE Result Comment: TESTING Performed at: [facility] POCT Rodo Garza MD, Laboratory Radial Router Operator [address] [place] [address] Specimen Performing Organization Address [facility] Phone Number POINT OF CARE TESTING BASIC METABOLIC PANEL (01/28/2020 7:25 AM EST) Glucose 66 (L) 70 - 99 mg/dl [facility] BUN 17 7 - 17 mg/dl [facility] Creatinine 0.6 (L) 0.7 - 1.2 mg/dl [facility] Sodium 136 134 - 145 mmol/L [facility] Potassium 4.0 3.5 - 5.1 mmol/L [facility] Chloride 111 (H) 98 - 107 mmol/L [facility] CO2 18 (L) 22 - 30 mmol/L [facility] Calcium 9.4 8.3 - 10.1 mg/dl [facility] eGFR >60 See Interpretation [facility] Comment: Below ml/min/1.73ml GROUP Estimated GFR Interpretation: Sq LABORATORY Above 60ml/min/1.73m2 = Normal Renal Function 30-59 ml/min/1.73m2 = Stage 3 Chronic Kidney Disease 15-29 ml/min/1.73m2 = Stage 4 Chronic Kidney Disease Less than 15 ml/min/1.73m2 = Stage 5 Chronic Kidney Disease The GFR value is calculated using the Modification of Diet in Renal Disease ( MDRD) Study Equation which can be found at: https://www.kidney.org/content/irup-ptwpi-zpdklrri BUN/Creatinine 28 (H) 6 - 22 RATIO [facility] LABORATORY Anion Gap 7 3 - 11 mmol/L [facility] Specimen Blood - Blood specimen (specimen) Performing Organization Address [facility] Phone Number [facility] [address] [place] [address] [phone] GLUCOSE (POCT) (01/27/2020 9:43 PM EST) Glucose POCT 164 (H) 70 - 99 mg/dl POINT OF CARE Result Comment: TESTING Performed at: [facility] POCT Rodo Garza MD, Laboratory Radial Router Operator [address] [place] [address] Specimen Performing Organization Address [facility] Phone Number POINT OF CARE TESTING GLUCOSE (POCT) (01/27/2020 3:21 PM EST) Glucose POCT 130 (H) 70 - 99 mg/dl POINT OF CARE Result Comment: TESTING Performed at: [facility] POCT Rodo Garza MD, Laboratory Radial Router Operator [address] [place] [address] Specimen Performing Organization Address [facility] Phone Number POINT OF CARE TESTING MAGNESIUM LEVEL (01/27/2020 11:25 AM EST) [facility] Signature Magnesium 1.9 1.6 - 2.3 MG/DL [facility] Specimen Blood - Blood specimen (specimen) Performing Organization Address [facility] Phone Number [facility] [address] [place] [address] FREE T4 (01/27/2020 11:25 AM EST) [facility] Free T4 0.7 (L) 0.8 - 2.2 NG/DL [facility] Specimen Blood - Blood specimen (specimen) Performing Organization Address [facility] Phone Number [facility] [address] [address] Troponin q 6 hrs x 2, if one drawn in ED, please time from that draw (2019 11:25 AM EST) Troponin <0.012 0.000 - 0.034 [facility] Comment: ng/ml GROUP LABORATORY Negative less than or equal to 0.034 ng/ml Indeterminate 0.0351 - 0.119 ng/ml (Suggest Repeat in 4 Hours) Critical (AMI Cutoff) greater than or equal to 0.120 ng/ml Specimen Blood - Blood specimen (specimen) Performing Organization Address [facility] Phone Number [facility] [address] [address] GLUCOSE (POCT) (01/27/2020 10:50 AM EST) Glucose POCT 150 (H) 70 - 99 mg/dl POINT OF CARE Result Comment: TESTING Performed at: [facility] POCT Rodo Garza MD, Laboratory Radial Router Operator [address] [place] [address] Specimen Performing Organization Address [facility] Phone Number POINT OF CARE TESTING GLUCOSE (POCT) (01/27/2020 7:59 AM EST) Glucose POCT 78 70 - 99 mg/dl POINT OF CARE Result Comment: TESTING Performed at: [facility] POCT Rodo Garza MD, Laboratory Radial Router Operator [address] [place] [address] Specimen Performing Organization Address [facility] Phone Number POINT OF CARE TESTING CT CHEST PULMONARY ARTERY EMBOLUS (01/27/2020 7:20 AM EST) Specimen Impressions Performed At No pulmonary embolism. No definite acute findings in the chest. Coronary artery calcifications noted. Signed by Nadir Lynn on 01/27/2020 7:34 AM Narrative Performed At Procedure(s): CT CHEST PULMONARY ARTERY EMBOLUS Date of service: 01/27/2020 7:15 AM Provided clinical information: 54 years, Female, "Chest pain, acute, PE suspected, high pretest prob" Procedure and materials: Following the uneventful administration of intravenous contrast, axial CT images were obtained through the chest. Sagittal and coronal reformatted images were provided. Coronal 3-D MIP reconstructions were created. Contrast: 83 mL intravenous Omnipaque 350 was administered. Comparison studies: 12/25/2019, 04/28/2018. Observations: There is adequate contrast opacification of the pulmonary arteries. There is no intraluminal filling defect to indicate presence of a pulmonary embolism. Thoracic aorta is not well enhanced on this phase, but otherwise unremarkable. Pulmonary veins are negative. Large coronary calcifications on the left. Heart is normal size. No mediastinal or hilar adenopathy. No pericardial effusion. No pneumothorax or pleural effusion. Clear lungs. Esophagus and limited images through the upper abdomen are unremarkable. Procedure Note Interface, Rad Results - 01/27/2020 7:36 AM EST Procedure(s): CT CHEST PULMONARY ARTERY EMBOLUS Date of service: 01/27/2020 7:15 AM Provided clinical information: 54 years, Female, "Chest pain, acute, PE suspected, high pretest prob" Procedure and materials: Following the uneventful administration of intravenous contrast, axial CT images were obtained through the chest. Sagittal and coronal reformatted images were provided. Coronal 3-D MIP reconstructions were created. Contrast: 83 mL intravenous Omnipaque 350 was administered. Comparison studies: 12/25/2019, 04/28/2018. Observations: There is adequate contrast opacification of the pulmonary arteries. There is no intraluminal filling defect to indicate presence of a pulmonary embolism. Thoracic aorta is not well enhanced on this phase, but otherwise unremarkable. Pulmonary veins are negative. Large coronary calcifications on the left. Heart is normal size. No mediastinal or hilar adenopathy. No pericardial effusion. No pneumothorax or pleural effusion. Clear lungs. Esophagus and limited images through the upper abdomen are unremarkable. IMPRESSION No pulmonary embolism. No definite acute findings in the chest. Coronary artery calcifications noted. Signed by Nadir Lynn on 01/27/2020 7:34 AM D Dimer - TODAY (01/27/2020 5:17 AM EST) D Dimer 1.27 (H)Comment: <=0.50 UG/ML [facility] D-dimer values less GROUP LABORATORY than or equal to 0.50 ug/mL fibrinogen equivalent units (FEU) may be used in conjunction with clinical pre-test probability to exclude deep vein thrombosis (DVT) and/or pulmonary embolism (PE). Specimen Blood - Blood specimen (specimen) Performing Organization Address [facility] Phone Number BELLOPhokki [facility] [address] [place] [address] PTT TODAY (01/27/2020 5:17 AM EST) PTT 22.2Comment: 21.3 - 35.9 SEC [facility] Reference range GROUP LABORATORY updated 09/19/2019. Specimen Blood - Blood specimen (specimen) Performing Organization Address [facility] Phone Number [facility] [address] [place], [place] [id number] INR/PT - Today (01/27/2020 5:17 AM EST) INR 1.02Comment: INR 0.88 - 1.13 [facility] Therapeutic Range: Ratio GROUP LAB[facility]ATORY 2.0 - 3.5 Protime 13.2Comment: 12.0 - 14.5 sec [facility] Reference range GROUP LAB[facility] updated 09/19/2019. Specimen Blood - Blood specimen (specimen) Performing Organization Address [facility] Phone Number [facility] [address] [place] [address] [phone] Lipase (01/27/2020 5:17 AM EST) Lipase 65 23 - 300 U/L [facility] Specimen Blood - Blood specimen (specimen) Performing Organization Address [facility] Phone Number [facility] [address] [place] [place] [address] [phone] B12, Folate level (01/27/2020 5:17 AM EST) Vitamin B12 783 239 - 931 pg/ml [facility] Folate 4.0 2.8 - 20.0 ng/ml [facility] Specimen Blood - Blood specimen (specimen) Performing Organization Address [facility] Phone Number [facility] [address] [place] [address] CMP - tomorrow (01/27/2020 5:17 AM EST) Sodium 137 134 - 145 mmol/L [facility] Potassium 3.4 (L) 3.5 - 5.1 mmol/L [facility] Chloride 108 (H) 98 - 107 mmol/L [facility] CO2 20 (L) 22 - 30 mmol/L [facility] Calcium 9.7 8.3 - 10.1 mg/dl [facility] Albumin 3.7 3.5 - 5.0 g/dl [facility] BUN 11 7 - 17 mg/dl [facility] Creatinine 0.5 (L) 0.7 - 1.2 mg/dl [facility] Glucose 60 (L) 70 - 99 mg/dl [facility] Total Protein 6.7 6.3 - 8.2 g/dl [facility] Total Bilirubin 0.3 0.0 - 1.1 MG/DL [facility] AST 23 15 - 46 U/L [facility] ALT 27 9 - 52 U/L [facility] Alkaline 79 40 - 150 U/L [facility] Phosphatase [facility] eGFR >60 See Interpretation [facility] Comment: Below ml/min/1.73ml GROUP Estimated GFR Interpretation: Sq LABORATORY Above 60ml/min/1.73m2 = Normal Renal Function 30-59 ml/min/1.73m2 = Stage 3 Chronic Kidney Disease 15-29 ml/min/1.73m2 = Stage 4 Chronic Kidney Disease Less than 15 ml/min/1.73m2 = Stage 5 Chronic Kidney Disease The GFR value is calculated using the Modification of Diet in Renal Disease ( MDRD) Study Equation which can be found at: https://www.kidney.org/content/nnef-llcsi-rirzwdcc BUN/Creatinine 22 6 - 22 RATIO [facility] LABORATORY Anion Gap 9 3 - 11 mmol/L [facility] A/G Ratio 1.2 0.8 - 2.0 ratio [facility] Specimen Blood - Blood specimen (specimen) Performing Organization Address [facility] Phone Number [facility] [address] [place] [address] Troponin q 6 hrs x 2, if one drawn in ED, please time from that draw (2019 5:17 AM EST) Troponin <0.012 0.000 - 0.034 [facility] Comment: ng/ml GROUP LAB[facility]ATORY Negative less than or equal to 0.034 ng/ml Indeterminate 0.0351 - 0.119 ng/ml (Suggest Repeat in 4 Hours) Critical (AMI Cutoff) greater than or equal to 0.120 ng/ml Specimen Blood - Blood specimen (specimen) Performing Organization Address [facility] Phone Number [facility] [address] [place] [address] Magnesium level (01/27/2020 5:17 AM EST) Magnesium 1.8 1.6 - 2.3 MG/DL [facility] Specimen Blood - Blood specimen (specimen) Performing Organization Address [facility] Phone Number [facility] [address] [place] [place] [address] TSH (01/27/2020 5:17 AM EST) TSH 0.28 (L) 0.47 - 4.68 uIu/ml [facility] Specimen Blood - Blood specimen (specimen) Performing Organization Address [facility] Phone Number [facility] [address] [place] [address] ESR ( sedimentation rate) (01/27/2020 5:17 AM EST) ESR 22Comment: 0 - 30 MM/HR [facility] was GROUP LABORATORY changed 05/24/19. Please note updated reference range. Specimen Blood - Blood specimen (specimen) Performing Organization Address [facility] Phone Number [facility] [address] [address] GLYCOHEMOGLOBIN A1C (01/27/2020 5:17 AM EST) Glycohemoglobin A1C 12.6 (H) <=5.6 % [facility] Comment: GROUP LAB[facility] Normal*: <=5.6% Pre Diabetes* Risk: 5.7-6.4% Diabetes* Risk: >=6.5% Glycemic Goals for Adult Diabetes*: <7.0% *(Adult Ranges)[place] [employer], Standards of Medical Care in Diabetes, 2018 Specimen Blood - Blood specimen (specimen) Performing Organization Address [facility] Phone Number [facility] [address] [place] [address] CBC WITH DIFFERENTIAL (01/27/2020 5:17 AM EST) WBC Count 6.98 3.98 - 10.04 K/uL [facility] RBC Count 4.58 3.93 - 5.22 M/UL [facility] Hemoglobin 13.0 11.2 - 15.7 g/dL [facility] Hematocrit 39.6 34.1 - 44.9 % [facility] MCV 86.5 79.4 - 94.8 FL [facility] MCH 28.4 25.6 - 32.2 PG [facility] MCHC 32.8 32.2 - 35.5 g/dL [facility] Platelet Count 222 182 - 369 K/uL [facility] MPV 11.0 9.4 - 12.3 FL [facility] RDW 13.7 11.7 - 14.4 % [facility] Neutrophil % 50.2 34.0 - 71.1 % [facility] Lymphocyte % 42.3 19.3 - 51.7 % [facility] Monocyte % 4.7 4.7 - 12.5 % [facility] Eosinophil % 1.6 0.7 - 5.8 % [facility] Basophil % 0.6 0.1 - 1.2 % [facility] nRBC % 0.0 0.0 - 0.2 % [facility] Neutrophil # 3.51 1.56 - 6.13 K/UL [facility] Lymphocyte # 2.95 1.18 - 3.74 K/UL [facility] Monocyte # 0.33 0.24 - 0.86 K/UL [facility] Eosinophil # 0.11 0.04 - 0.36 K/UL [facility] Basophil # 0.04 0.01 - 0.08 K/UL [facility] Immature Gran % 0.6 (H) 0.0 - 0.4 % [facility] Immature Gran # 0.04 (H) 0.00 - 0.03 K/uL [facility] NRBC # 0.00 0.00 - 0.12 K/uL [facility] Specimen Blood - Blood specimen (specimen) Performing Organization Address City/[facility] Phone Number [facility] [address] [address] GLUCOSE (POCT) (01/27/2020 1:04 AM EST) Glucose POCT 153 (H) 70 - 99 mg/dl POINT OF CARE Result Comment: TESTING Performed at: [facility] POCT Rodo Garza MD, Laboratory Radial Router Operator [address] [place] [address] Specimen Performing Organization Address [facility]/Zipcode Phone Number POINT OF CARE TESTING GLUCOSE (POCT) (01/26/2020 11:39 PM EST) Glucose POCT 75 70 - 99 mg/dl POINT OF CARE Result Comment: TESTING Performed at: [facility] POCT Rodo Garza MD, Laboratory Radial Router Operator [address] [place] [address] Specimen Performing Organization Address City/State/[facility] Phone Number POINT OF CARE TESTING XR CHEST 2 VIEW PA AND LATERAL (STANDARD) (01/26/2020 11:29 PM EST) Specimen Impressions Performed At No acute cardiopulmonary findings. Signed by Nadir Lynn on 01/26/2020 11:34 PM Narrative Performed At Procedure(s): XR CHEST 2 VIEW PA AND LATERAL (STANDARD) Date of service: 01/26/2020 11:03 PM Provided clinical information: 54 years, Female, "CP" Procedure and materials: Standard protocol. Comparison studies: 12/28/2019 Observations: The lungs are clear. Specifically, the density in the right upper lung previously seen is cleared. There is no pneumothorax or effusion. The cardiomediastinal silhouette is normal. There is no acute osseous abnormality. Procedure Note Interface, Rad Results - 01/26/2020 11:36 PM EST Procedure(s): XR CHEST 2 VIEW PA AND LATERAL (STANDARD) Date of service: 01/26/2020 11:03 PM Provided clinical information: 54 years, Female, "CP" Procedure and materials: Standard protocol. Comparison studies: 12/28/2019 Observations: The lungs are clear. Specifically, the density in the right upper lung previously seen is cleared. There is no pneumothorax or effusion. The cardiomediastinal silhouette is normal. There is no acute osseous abnormality. IMPRESSION No acute cardiopulmonary findings. Signed by Nadir Lynn on 01/26/2020 11:34 PM GLUCOSE (POCT) (01/26/2020 10:35 PM EST) Glucose POCT 66 (L) 70 - 99 mg/dl POINT OF CARE Result Comment: TESTING Performed at: [facility] POCT Rodo Garza MD, Laboratory Radial Router Operator [address] [place] [address] Specimen Performing Organization Address City/State/[facility] Phone Number POINT OF CARE TESTING NT PROBNP (01/26/2020 10:08 PM EST) NT PRO BNP 534 (H) <125 pg/ml [facility] Comment: [facility] Recommended cut points for the diagnostic evaluation of heart failure patients with acute dyspnea* Ages (years) [employer] (pg/ml) <50 450 50-75 900 >75 1800 *The [place] Journal of Cardiology NTproBNP results should be interpreted in the context of the overall picture. Serum concentrations of natriuretic peptides may be elevated in patients with acute myocardial infarction and renal insuffic iency. Certain drugs may alter results. Heterophilic antibodies are known to cause interference with immunoassays. Results which are inconsistent with clinical observation indicate a need for additional testing. NTproBNP testing performed on [employer]. Results will not correlate with other methodologies. Specimen Blood - Blood specimen (specimen) Performing Organization Address City/[facility] Phone Number [facility] [address] [place] [address] TROPONIN (01/26/2020 10:08 PM EST) Troponin <0.012 0.000 - 0.034 [facility] Comment: ng/ml [facility] Negative less than or equal to 0.034 ng/ml Indeterminate 0.0351 - 0.119 ng/ml (Suggest Repeat in 4 Hours) Critical (AMI Cutoff) greater than or equal to 0.120 ng/ml Specimen Blood - Blood specimen (specimen) Performing Organization Address [facility] Phone Number [facility] [address] [place] [address] COMPREHENSIVE METABOLIC PANEL (01/26/2020 10:08 PM EST) Sodium 142 134 - 145 mmol/L [facility] Potassium 3.6Comment: 3.5 - 5.1 mmol/L [facility] hemolyzed. LABORATORY Results may be affected. Chloride 106 98 - 107 mmol/L [facility] CO2 26 22 - 30 mmol/L [facility] Calcium 9.9 8.3 - 10.1 mg/dl [facility] Albumin 4.3 3.5 - 5.0 g/dl [facility] BUN 12Comment: 7 - 17 mg/dl [facility] hemolyzed. LABORATORY Results may be affected. Creatinine 0.5 (L) 0.7 - 1.2 mg/dl [facility] Glucose 80 70 - 99 mg/dl [facility] Total Protein 7.7 6.3 - 8.2 g/dl [facility] Total Bilirubin 0.4 0.0 - 1.1 MG/DL [facility] AST 35Comment: 15 - 46 U/L [facility] GROUP hemolyzed. LABORATORY Results may be affected. ALT 20Comment: 9 - 52 U/L [facility] GROUP hemolyzed. LABORATORY Results may be affected. Alkaline 84Comment: 40 - 150 U/L [facility] Phosphatase Slightly GROUP hemolyzed. LABORATORY Results may be affected. eGFR >60 See Interpretation [facility] Comment: Below ml/min/1.73ml GROUP Estimated GFR Interpretation: Sq LABORATORY Above 60ml/min/1.73m2 = Normal Renal Function 30-59 ml/min/1.73m2 = Stage 3 Chronic Kidney Disease 15-29 ml/min/1.73m2 = Stage 4 Chronic Kidney Disease Less than 15 ml/min/1.73m2 = Stage 5 Chronic Kidney Disease The GFR value is calculated using the Modification of Diet in Renal Disease ( MDRD) Study Equation which can be found at: https://www.kidney.org/content/budu-njmbt-haevpvtd BUN/Creatinine 24 (H) 6 - 22 RATIO [facility] LABORATORY Anion Gap 10 3 - 11 mmol/L [facility] A/G Ratio 1.3 0.8 - 2.0 ratio [facility] Specimen Blood - Blood specimen (specimen) Performing Organization Address City/State/Zipcode Phone Number [facility] [address] [place] [address] CBC WITH DIFFERENTIAL (01/26/2020 10:08 PM EST) WBC Count 7.61 3.98 - 10.04 K/uL [facility] RBC Count 5.14 3.93 - 5.22 M/UL [facility] Hemoglobin 14.6 11.2 - 15.7 g/dL [facility] Hematocrit 44.2 34.1 - 44.9 % [facility] MCV 86.0 79.4 - 94.8 FL [facility] MCH 28.4 25.6 - 32.2 PG [facility] MCHC 33.0 32.2 - 35.5 g/dL [facility] Platelet Count 247 182 - 369 K/uL [facility] MPV 11.3 9.4 - 12.3 FL [facility] RDW 13.4 11.7 - 14.4 % [facility] Neutrophil % 49.3 34.0 - 71.1 % [facility] Lymphocyte % 43.0 19.3 - 51.7 % [facility] Monocyte % 4.6 (L) 4.7 - 12.5 % [facility] Eosinophil % 1.6 0.7 - 5.8 % [facility] Basophil % 0.7 0.1 - 1.2 % [facility] nRBC % 0.0 0.0 - 0.2 % [facility] Neutrophil # 3.76 1.56 - 6.13 K/UL [facility] Lymphocyte # 3.27 1.18 - 3.74 K/UL [facility] Monocyte # 0.35 0.24 - 0.86 K/UL [facility] Eosinophil # 0.12 0.04 - 0.36 K/UL [facility] Basophil # 0.05 0.01 - 0.08 K/UL [facility] Immature Gran % 0.8 (H) 0.0 - 0.4 % [facility] Immature Gran # 0.06 (H) 0.00 - 0.03 K/uL [facility] NRBC # 0.00 0.00 - 0.12 K/uL [facility] Specimen Blood - Blood specimen (specimen) Performing Organization Address City/State/Zipcode Phone Number [facility] [address] [place] [address] GLUCOSE (POCT) (01/26/2020 9:22 PM EST) Glucose POCT 52 (L) 70 - 99 mg/dl POINT OF CARE Result Comment: TESTING Performed at: [facility] POCT Rodo Garza MD, Laboratory Radial Router Operator [address] [place] [address] Specimen Performing Organization Address City/State/Zipcode Phone Number POINT OF CARE TESTING IN PT/ED 12 LEAD EKG (01/26/2020 9:11 PM EST) Ventricular Rate 71 BPM CARDIOLOGY DEPARTMENT Atrial rate 71 BPM CARDIOLOGY DEPARTMENT P-R Interval 124 ms CARDIOLOGY DEPARTMENT QRS Duration 84 ms CARDIOLOGY DEPARTMENT Q-T Interval 396 ms CARDIOLOGY DEPARTMENT QTC Calculation 430 ms CARDIOLOGY (Bezet) DEPARTMENT P [place] -6 degrees CARDIOLOGY DEPARTMENT R [place] 0 degrees CARDIOLOGY DEPARTMENT T [place] 9 degrees CARDIOLOGY DEPARTMENT Diagnosis Line Normal sinus rhythm CARDIOLOGY Moderate voltage criteria for LVH, may be normal variant DEPARTMENT Possible Inferior infarct (cited on or before 25-DEC-2019) Abnormal ECG When compared with ECG of 25-DEC-2019 17:39, Vent. rate has decreased BY 39 BPM Confirmed by ONEYDA AKBAR DO ([id number]) ([id number]) on 01/29/2020 4:00:40 PM Specimen Narrative Performed At Performing Organization Address City/State/Zipcode Phone Number CARDIOLOGY DEPARTMENT documented in this encounter Visit Diagnoses Diagnosis Chest pain, unspecified type Generalized abdominal pain Abdominal pain, generalized Obstipation Unspecified constipation documented in this encounter Administered Medications Medication Order MAR Action Action Date Dose Rate Site acetaminophen (TYLENOL) tablet Given 01/27/2020 5:26 AM EST 650 mg 650 mg 650 mg, Oral, Q6 HRS PRN, Starting 01/27/20 at 0419, Until Tu01/30/20 at 1555, Mild Pain (pain scale 1-3) - PO - 1st line - if immediate effect not required and patient can tolerate PO, Moderate Pain (pain scale 4-6) - PO - 1st line - if immediate effect not required and patient can tolerate PO, headache aspirin chewable tablet 81 mg Given 01/30/2020 10:06 AM EST 81 mg 81 mg, Oral, DAILY, First dose on 01/27/20 at 0900, Until Discontinued Given 01/29/2020 8:46 AM EST 81 mg Given 01/28/2020 8:42 AM EST 81 mg atorvastatin (LIPITOR) tablet 40 mg Given 01/29/2020 10:12 PM EST 40 mg 40 mg, Oral, QHS, First dose on 01/27/20 at 0420, Until Discontinued Given 01/28/2020 8:39 PM EST 40 mg Given 01/27/2020 9:44 PM EST 40 mg bethanechol (URECHOLINE, DUVOID) tablet 25 mg Given 01/30/2020 10:06 AM EST 25 mg 25 mg, Oral, QID, First dose on Wed01/27/20 at 0900, Until Discontinued Given 01/30/2020 6:11 AM EST 25 mg Given 01/29/2020 10:12 PM EST 25 mg buprenorphine hcl (SUBUTEX) subligual tablet Given 01/28/2020 8:50 AM EST 24 mg 24 mg 24 mg, Sublingual, DAILY, 3 doses, First dose (after last modification) on Wed01/27/20 at 0900, Last dose on Wed01/29/20 at 0900 Given 01/27/2020 9:18 AM EST 24 mg buprenorphine hcl (SUBUTEX) subligual tablet Given 01/29/2020 8:45 AM EST 24 mg 24 mg 24 mg, Sublingual, DAILY, 4 doses, First dose (after last modification) on Wed01/29/20 at 0900, Last dose on Wed02/01/20 at 0900 buprenorphine hcl (SUBUTEX) subligual tablet Given 01/30/2020 12:48 PM EST 24 mg 24 mg 24 mg, Sublingual, DAILY, 5 doses, First dose on Wed01/30/20 at 1250, Last dose on Wed02/03/20 at 0900 dextrose injection 50 % Given 01/27/2020 12:03 AM EST 25 g 25 g, Intravenous Push, X1, 1 dose, First dose on Wed01/27/20 at 0045 gabapentin (NEURONTIN) capsule 600 mg Given 01/30/2020 10:07 AM EST 600 mg 600 mg, Oral, TID, First dose on Wed01/27/20 at 0900, Until Discontinued Given 01/29/2020 10:12 PM EST 600 mg Given 01/29/2020 5:04 PM EST 600 mg heparin injection 5000 Given 01/30/2020 6:11 AM 5,000 Units Abdominal Tissue UNIT/ML EST 5,000 Units, Subcutaneous, Q8H (Heparin), 45 doses, First dose on Wed01/27/20 at 0600, Last dose on Wed02/10/20 at 2200 Given 01/29/2020 10:12 PM EST 5,000 Units Abdominal Tissue Given 01/29/2020 1:21 PM EST 5,000 Units Abdominal Tissue HOLD MEDICATION Given 01/30/2020 7:00 AM EST Does not apply, AC, First dose on 01/27/20 at 0700, Until Discontinued, Hold meal time rapid/short acting insulin if patient does not eat., Acknowledged HOLD order 01/28/2020 11:00 AM EST HYDROmorphone (DILAUDID) syringe 0.5 mg Given 01/28/2020 6:05 AM EST 0.5 mg 0.5 mg, Intravenous Push, Q4 HRS PRN, Starting 01/27/20 at 1459, Until 01/28/20 at 0904, Moderate Pain (pain scale 4-6) - IV - 1st line - if immediate effect required or patient cannot tolerate PO Given 01/28/2020 2:06 AM EST 0.5 mg Given 01/27/2020 7:53 PM EST 0.5 mg HYDROmorphone (DILAUDID) syringe 0.5 mg Given 01/28/2020 11:42 AM EST 0.5 mg 0.5 mg, Intravenous Push, Q6 HRS PRN, Starting 01/28/20 at 0910, Until 01/29/20 at 0812, Moderate Pain (pain scale 4-6) - IV - 1st line - if immediate effect required or patient cannot tolerate PO HYDROmorphone (DILAUDID) syringe 0.5 mg Given 01/29/2020 10:12 PM EST 0.5 mg 0.5 mg, Intravenous Push, Q12 HRS PRN, Starting 01/29/20 at 0820, Until 01/30/20 at 1555, Moderate Pain (pain scale 4-6) - IV - 1st line - if immediate effect required or patient cannot tolerate PO iohexol (OMNIPAQUE) 350 MG/ML injectable Push 01/28/2020 2:50 PM EST 79 mL solution 79 mL 79 mL, Intravenous, NOW, 1 dose, 01/28/20 at 1450 iohexol (OMNIPAQUE) 350 MG/ML injectable Push 01/27/2020 7:25 AM EST 83 mL solution 83 mL 83 mL, Intravenous, NOW, 1 dose, 01/27/20 at 0725 ketorolac (TORADOL) injection 30 mg Given 01/28/2020 8:42 AM EST 30 mg 30 mg, Intravenous Push, TID, 7 doses, First dose on Wed01/27/20 at 2100, Last dose on Wed01/29/20 at 2100 Given 01/27/2020 9:47 PM EST 30 mg lactulose (CEPHULAC) oral solution 20 g Given 01/29/2020 1:21 PM EST 20 g 20 g, Oral, Q3 HRS, 2 doses, First dose on Wed01/29/20 at 0920, Last dose on Wed01/29/20 at 1220 Given 01/29/2020 9:51 AM EST 20 g lisinopril (PRINIVIL, ZESTRIL) tablet 10 mg Given 01/28/2020 8:46 AM EST 10 mg 10 mg, Oral, DAILY, First dose on [facility] 01/27/20 at 0900, Until Discontinued Given 01/27/2020 9:05 AM EST 10 mg LISPRO insulin (RAPID-Acting) Given 01/30/2020 11:49 AM 2 Units Arm - Upper Right USUAL Correction Scale Inj EST Subcutaneous, AC/HS, First dose on [facility] 01/27/20 at 0700, Until Discontinued, Blood Glucose USUAL <=150 0 Units 151-200 2 Units 201-250 4 Units 251-300 6 Units 301-350 8 Units 351-400 10 Units >400 12 Units And Call 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 Operators 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 Not for IV USE, Given 01/29/2020 8:45 AM EST 2 Units Arm - Upper Left Given 01/28/2020 8:38 PM EST 4 Units Abdominal Tissue LORazepam (ATIVAN) tablet 0.5 mg Given 01/30/2020 10:12 AM EST 0.5 mg 0.5 mg, Oral, TID, 15 doses, First dose on Wed01/28/20 at 0910, Last dose on Wed02/01/20 at 2100 Given 01/29/2020 10:12 PM EST 0.5 mg Given 01/29/2020 5:05 PM EST 0.5 mg magnesium citrate (CITRATE OF MAGNESIUM) Given 01/28/2020 3:55 PM EST 296 mL oral solution 1.745 GM/30ML 296 mL, Oral, X1, 1 dose, First dose on [place] 01/28/20 at 1510 meclizine (ANTIVERT) chewable tablet Given 01/30/2020 10:07 AM EST 12.5 mg (1/2X25 MG) 12.5 mg 12.5 mg, Oral, TID, First dose on 01/28/20 at 0910, Until Discontinued Given 01/29/2020 5:04 PM EST 12.5 mg Given 01/29/2020 8:45 AM EST 12.5 mg menthol-zinc oxide Supervised Patient 01/30/2020 9:00 AM [place] (CALMOSEPTINE) topical Administration EST ointment 0.44-20.6 % Topical, TID, First dose on 01/29/20 at 1640, Until Discontinued, Apply to jesus area, Given 01/29/2020 10:13 PM EST Rectum Given 01/29/2020 5:40 PM EST [place] morphine (PF) syringe 2 mg Given 01/27/2020 12:36 PM EST 2 mg 2 mg, Intravenous Push, Q4 HRS PRN, Starting 01/27/20 at 0418, Until 01/27/20 at 1500, chest pain unrelieved by nitro, PRN severe pain (pain scale 7-10) - Give if patient unable to tolerate PO and/or immediate effect desired, Given 01/27/2020 7:51 AM EST 2 mg nitroglycerin (NITROSTAT) sublingual tablet (1/150) 0.4 mg 0.4 mg, Sublingual, Q5 MIN PRN, Starting 01/27/20 at 0419, Until Tu01/30/20 at 1555, chest pain normal saline bolus 1,000 mL New Bag 01/28/2020 11:59 PM EST 1,000 mL 1,000 mL, Intravenous, BOLUS, 1 dose, [place] 01/28/20 at 2340 normal saline bolus 500 mL New Bag 01/28/2020 3:15 PM EST 500 mL 500 mL, Intravenous, BOLUS, 1 dose, [place] 01/28/20 at 1650 normal saline IV New Bag 01/28/2020 3:57 PM EST 75 mL/hr Intravenous, at 75 mL/hr, CONTINUOUS, Starting Wed01/28/20 at 1650, Until Wed01/29/20 at 0812 pantoprazole (PROTONIX) enteric coated tablet Given 01/30/2020 6:11 AM EST 40 mg 40 mg 40 mg, Oral, PRE BREAKFAST, First dose on 01/27/20 at 0600, Until Discontinued, This medication dosage form should NOT be crushed. Please call the inpatient Pharmacy for more information. [facility] ext. [phone] [place] ext. [phone] [facility] ext. [phone] , Given 01/29/2020 6:27 AM EST 40 mg Given 01/28/2020 6:05 AM EST 40 mg perflutren lipid microsphere (DEFINITY) injection 0.5 mL 0.5 mL, Intravenous Push, PRN, Starting 01/27/20 at 0425, Until 01/30/20 at 1555, Poor visualization (see Admin Instructions for details) up to a max dose of 10 mL, The Marine Geologist will determine if Definity needs to be administered based on the following criteria: 1. Patient has two or more wall segments which cannot be visualized in one or more views 2. Patient is technically difficult to image and is being evaluated for: a. LV function b. Known apical thrombus and/or cardiac tumors c. Suspected myocardial rupture or pseudoaneurysm 3. Patient receiving exercise or pharmacologic stress echocardiogram studies If Definity is needed , the nurse will prepare, administer and document the administration on the eMAR. Definity is provided by the commercial horticulture instructor and is to be prepared by the nurse as follows: 1. Activate perflutren lipid microsphere (DEFINITY) by shaking the vial for 45 seconds using a Vialmix 2. Draw up the contents of the vial into a 10 mL syringe and add 8.5 mL of Sodium Chloride 0.9% for a total volume of 10 mL 3. Administer 0.5 mL IV push 4. Flush the line with 3 mL Sodium Chloride 0.9% over 10 seconds to clear the tubing 5. Marine Geologist will monitor the visualization of images 6. If images are still not optimal, repeat steps 3 & 4 as needed until images are optimal OR a total of 10 mL of Definity has been administered. , phosphate (FLEET SALINE) enema 1 Each Given 01/28/2020 4:04 PM EST 1 Each 1 Each, Rectal, Q2 HRS, 3 doses, First dose on 01/28/20 at 1650, Last dose on 01/28/20 at 2000, Obtain from Storeroom, polyethylene glycol (MIRALAX) oral pack 17 g Given 01/28/2020 10:13 AM EST 17 g 17 g, Oral, BID, First dose on 01/28/20 at 0910, Until Discontinued potassium chloride (K-DUR) controlled Given 01/27/2020 9:04 AM EST 20 mEq release tablet 20 mEq 20 mEq, Oral, X1, 1 dose, First dose on 01/27/20 at 0810, Per the Package Insert, if the patient is having difficulty swallowing whole tablets, place the tablet in approximately 4 fluid ounces of water. Allow 2 minutes for the tablet (s) to disintegrate. Stir for 30 seconds after the tablet has disintegrated. Swirl the suspension and have the patient consume the entire contents of the glass immediately by drinking or by the use of a straw. Add another 1 fluid ounce of water, swirl and consume immediately. Then add an additional 1 fluid ounce of water, swirl and consume immediately. Aqueous suspension of K-Dur tablets that is not taken immediately should be discarded. The use of other liquids for suspending K-Dur tablets is not recommended., potassium chloride (K-DUR) controlled Given 01/27/2020 4:48 PM EST 40 mEq release tablet 40 mEq 40 mEq, Oral, Q2 HRS, 2 doses, First dose on 01/27/20 at 1240, Last dose on 01/27/20 at 1440, Per the Package Insert, if the patient is having difficulty swallowing whole tablets, place the tablet in approximately 4 fluid ounces of water. Allow 2 minutes for the tablet (s) to disintegrate. Stir for 30 seconds after the tablet has disintegrated. Swirl the suspension and have the patient consume the entire contents of the glass immediately by drinking or by the use of a straw. Add another 1 fluid ounce of water, swirl and consume immediately. Then add an additional 1 fluid ounce of water, swirl and consume immediately. Aqueous suspension of K-Dur tablets that is not taken immediately should be discarded. The use of other liquids for suspending K-Dur tablets is not recommended., Given 01/27/2020 3:02 PM EST 40 mEq promethazine (PHENERGAN) tablet 25 mg Given 01/28/2020 3:50 PM EST 25 mg 25 mg, Oral, Q8 HRS PRN, Starting 01/27/20 at 0411, Until 01/29/20 at 0754, Nausea/Vomiting - PO - 1st line - if immediate effect not required and patient can tolerate PO, Phenergan Tabs and Suppositories are contraindicated for children under 2 years of age, Quetiapine Fumarate (SEROQUEL) tablet 50 mg Given 01/29/2020 10:12 PM EST 50 mg 50 mg, Oral, QHS, First dose (after last modification) on 01/27/20 at 2100, Until Discontinued Given 01/28/2020 8:37 PM EST 50 mg Given 01/27/2020 9:44 PM EST 50 mg sennosides-docusate sodium (SENOKOT-S, SENNA Given 01/28/2020 8:42 AM EST 2 Tabs S) 8.6-50 mg 2 Tab 2 Tab, Oral, BID, First dose on 01/27/20 at 2100, Until Discontinued Given 01/27/2020 9:44 PM EST 2 Tabs sucralfate (CARAFATE) tablet 1,000 mg Given 01/27/2020 3:02 PM EST 1,000 mg 1,000 mg, Oral, AC/HS, First dose on 01/27/20 at 0700, Until Discontinued, Do not administer through "tubes" (Gastrostomy (PEG/G-tube), Orogastric (OG), Jejunal (J-tube), Nasogastric (NG)), sucralfate (CARAFATE) tablet 1,000 mg Given 01/30/2020 10:06 AM EST 1,000 mg 1,000 mg, Oral, AC, First dose (after last modification) on 01/28/20 at 0700, Until Discontinued, Do not administer through "tubes" (Gastrostomy (PEG/G-tube), Orogastric (OG), Jejunal (J-tube), Nasogastric (NG)), Given 01/29/2020 5:05 PM EST 1,000 mg Given 01/29/2020 1:21 PM EST 1,000 mg topiramate (TOPAMAX) tablet 50 mg Given 01/30/2020 10:06 AM EST 50 mg 50 mg, Oral, BID, First dose on 01/27/20 at 0900, Until Discontinued Given 01/29/2020 10:12 PM EST 50 mg Given 01/29/2020 8:46 AM EST 50 mg documented in this encounter Guarantor Name Account Type Relation to Date of Phone Billing Patient Address Evie Simpson Personal/Family 1965 [id number] (Home) [facility] [phone] MARIA WARNER (Work) [id number] documented as of this encounter Advance Directives Code Status Date Activated Date Inactivated Comments DNR 01/27/2020 4:18 AM Does the patient have decision making capacity? Yes Order was discussed with: Patient I discussed all options and patient/surrogate requested Do not resuscitate ( DNR) and agreed to: Full Code 12/25/2019 9:50 PM 01/26/2020 9:06 PM Does the patient have decision making capacity? Yes Order was discussed with: Patient I discussed all options and patient/surrogate requested and agreed to: Full Code Full Code 10/25/2019 5:48 PM 11/26/2019 6:38 [...]
--- OUTSIDE RECORDS SUMMARY | 2020-02-16 12:40 | XMS REPORT | Continuity of Care Document ---
:1965 External Reference #:[id number] Author Name Armen Goodman MD (transmitted by agent of provider Eliza Morocho) Address [address] [place] [id number] Care Team Providers Name Role Phone Armen Goodman MD - Hospitalist Care Team Information Drawer Upfitter [phone] Problems Active Problems Provider Date Type II [...] Step 1 Senner, DO 21mg/24HR Patches 24HR Insulin for use with 100units E11.65 Dian 09/13/2018 Syringe/0.5ML/30G X admelog three Senner, DO 1/2" times a day with 30G X 1/2" 0.5 ML meals Misc Admelog 10u three times a 30ml E11.65 Dian 09/13/2018 100Unit/ML day with each Senner, DO Solution meal Basaglar Kwikpen inject 50u twice 15ml E11.65 [facility] 09/13/2018 a day. . Senner, DO 100Unit/ML Solution Pen-Inject Lancets for use with your 100units E11.65 Dian 09/13/2018 30G [facility] Freestyle Test for blood glucose 100units E11.65 [facility] 09/13/2018 Strips monitoring at [facility], DO least 3 times a day. Freestyle System For blood glucose 1units E11.65 Armen Goodman MD 09/13/2018 Kit monitoring. Norvasc 1 by mouth every 30tabs Dian 10mg Tablets day , DO Lipitor one tab by mouth 30tabs Dian 20mg Tablets every night at [facility], DO bedtime Urecholine 4 times [...] day Clonidine HCL 1 tab by mouth 14tabs Unknown 0.1mg three times a day Tablets Immunizations [...] Result H/L Range Note Laboratory test 12/03/2019 [facility] Point of 281 mg/dL High 70-100 1 finding [facility] [place] [address] [phone] CBC Auto Diff 12/03/2019 [facility] White Blood 7.6 10^3/uL Normal 3.5-10.8 [address] [facility] [place] [address] [phone] Red Blood Count 5.08 10^6/uL High 3.70-4.87 [...] Cells % 0.1 Comp Metabolic Panel 12/03/2019 [facility] Sodium 134 mmol/L Low 135-145 [address] [place] [address] [phone] Potassium 4.0 mmol/L Normal 3.5-5.0 Chloride 101 [...] Egfr 103.0 >60 2 Laboratory test 12/03/2019 [facility] Lipase 42 U/L Normal 11.0-82.0 finding [address] [place] [address] [phone] C Reactive Protein 9.00 mg/L High <8.01 Troponin-I (TnI) 0.01 ng/mL <0.03 3 Urinalysis Profile 12/03/2019 [facility] Urine Color Yellow [address] [place] [address] [phone] Urine Appearance Clear Urine Specific [place] 1.036 High 1.010-1.030 Urine pH 5.0 Normal 5-9 Urine Urobilinogen Negative Negative Urine Ketones Trace Abnormal Negative Urine Protein Negative Negative Urine Leukocytes Negative Negative Urine Blood Negative Negative Urine Nitrite Negative Negative Urine Bilirubin Negative Negative Urine Glucose 3+(>=500 mg/dL) Abnormal Negative Laboratory test 12/03/2019 [facility] Lactic Acid 2.0 mmol/L Normal 0.5-2.0 4 finding [address] [place] [address] [phone] Laboratory test 11/06/2019 [facility] Creatine 47 U/L Normal 10-223 finding [address] [facility] Kinase(CK) [place] [address] [phone] Comp Metabolic 11/06/2019 [facility] Sodium 139 mmol/L Normal 135-145 Panel [address] [place] [address] [phone] Potassium 4.3 mmol/L Normal 3.5-5.0 Chloride 105 [...] Egfr 116.1 >60 5 Laboratory test 11/06/2019 [facility] Hemoglobin A1c 9.5 % High 4.0-5.[address] (Glyco HGB) [place], [place] [id number] [phone] Ammonia 45 mcmol/L Normal 16-53 Syphillis Igg W/Reflex RPR Negative Negative D Dimer Quantitative < 200 ng/mL Normal Less Than 230 7 Laboratory 10/07/2019 [facility] Troponin-I 0.06 Critical < 0.04 [address] (TnI) ng/mL high [place], [place] [id number] [phone] Lactic Acid 1.5 mmol/L Normal 0.5-2.0 9 CBC Auto 10/07/2019 [facility] White Blood 5.8 10^3/uL Normal 3.5-10.[address] Count [place], [place] [id number] [phone] Red Blood Count 4.99 10^6/uL High 3.70-4.87 [...] Red Blood Cells % 0.2 Laboratory 10/07/2019 [facility] Lactic 2.6 mmol/L Critical 0.5-2.0 10 test finding [address] [place] [address] [phone] Troponin-I (TnI) 0.05 ng/mL Critical high <0.04 11 Comp Metabolic Panel 10/07/2019 [facility] Sodium 134 mmol/L Low 135-[address] [place] [address] [phone] Potassium 4.2 mmol/L Normal 3.5-5.0 Chloride 104 [...] Egfr 98.2 >60 12 Laboratory test 10/07/2019 [facility] Lipase 60 U/L Normal 11.0-82.[address] [place] [address] [phone] C Reactive Protein 17.89 mg/L High <8.01 Urinalysis Profile 10/07/2019 [facility] Urine Color Straw [address] [place] [address] [phone] Urine Appearance Clear Urine Specific [place] 1.035 High 1.010-1.030 Urine pH 5.0 Normal 5-9 Urine Urobilinogen Negative Negative Urine Ketones Negative Negative Urine Protein Negative Negative Urine Leukocytes Negative Negative Urine Blood Negative Negative Urine Nitrite Negative Negative Urine Bilirubin Negative Negative Urine Glucose 3+(>=500 mg/dL) Abnormal Negative 1 Varnish Maker Helper: [id number] 2 Because ethnic data is not always [...] immediately to secondary confirmatory testing. Using the [employer] DxI 800 Access Immunoassay systems, the 99th percentile upper reference limit was demonstrated to be < 0.03 ng/mL. 4 [facility] Severe Sepsis and Septic Shock [...] in selective patients <6.0%. Please refer to [place] [employer] diabetic care guidelines for further information. 7 Please note: The following may produce a false positive D Dimer test: - Rheumatoid factor greater than 60 IU/ml - Plasma hemoglobin greater than 0.05 gm/dl - Bilirubin greater than 50 mg/dl - Lipids greater than 1000 mg/dl - FDP greater than 20 ug/ml 8 Result TnIDx:0.06 Called to [id number] at: 20:13:13 by:[id number] Read back by: [id number] Troponin-I testing on Plasma Separator Tubes (PST) has a known false positive rate of 0.20-0.40%. All positive troponins reflex immediately to secondary confirmatory testing. Using the [employer] DxI 800 Access Immunoassay systems, the 99th percentile upper reference limit was demonstrated to be < 0.03 ng/mL. 9 [facility] Severe Sepsis and Septic Shock Management Bundle Measure requires all lactic acids initially measuring >2.0 mmol/L be repeated. 10 Critical Result LACT:2.6 Called to [id number] at: 16:57:29 by:[id number] Read back by:[id number] [facility] Severe Sepsis and Septic Shock Management Bundle Measure requires all lactic acids initially measuring >2.0 mmol/L be repeated. 11 Result TnIDx:0.05 Called to [id number] at: 16:58:12 by:[id number] Read back by: [id number] Troponin-I testing on Plasma Separator Tubes (PST) has a known false positive rate of 0.20-0.40%. All positive troponins reflex immediately to secondary confirmatory testing. Using the [employer] DxI 800 Access Immunoassay systems, the 99th [...] dialysis) Procedures Date Code Description Status 10/11/2019 92387 EKG, Interpretation Only Completed 10/10/2019 04219 EKG, Interpretation Only Completed 10/09/2019 98381 EKG, Interpretation Only Completed 10/08/2019 18039 ECHO Transthorasic Realtime 2D W Doppler & Color Flow Completed Hosp 02/21/2018 47147304 Colonoscopy Completed Medical Devices Description No Information Available Encounters Type Date Location Provider Dx Diagnosis Office Visit 10/13/2019 [facility] Alex Kim, R10.32 Left lower 9:18a valerio Swanson M.D. quadrant pain Hospitalists K59.09 Other constipation E11.9 Type 2 diabetes mellitus without complications F11.99 Opioid use, unsp with unspecified opioid-induced disorder Office Visit 10/12/2019 [facility] K52.9 Noninfective 9:18a valerio Swanson D.O. 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 K31.84 Gastroparesis Z79.4 senior care (current) use of insulin I10 Essential (primary) hypertension F11.99 Opioid use, unsp with unspecified opioid-induced disorder Office Visit 10/10/2019 7:00a [facility] Gastroenterology Lucian Knox R19.4 Change in MD Abdullahi bowel habit K56.41 Fecal impaction Office Visit 10/10/2019 [facility] K52.9 Noninfective 9:15a Assocvalerio MD gastroenteritis and Hospitalists colitis, unspecified I26.99 Other pulmonary embolism without acute cor pulmonale I10 Essential (primary) hypertension F11.988 Opioid use, unspecified with other opioid-induced disorder E11.40 Type 2 diabetes mellitus with diabetic neuropathy, unsp Office Visit 10/09/2019 [facility] Elizabeth K52.9 Noninfective 9:14a Assvalerio sweeney MD gastroenteritis and Hospitalists colitis, unspecified I26.99 Other pulmonary embolism without acute cor pulmonale I10 Essential (primary) hypertension E11.40 Type 2 diabetes mellitus with diabetic neuropathy, unsp F11.90 Opioid use, unspecified, uncomplicated Z79.4 senior care (current) use of insulin [facility] K52.9 Noninfective 9:14a valerio Swanson MD gastroenteritis and Hospitalists colitis, unspecified I26.99 Other pulmonary embolism without acute cor pulmonale I10 Essential (primary) hypertension Office Visit 10/07/2019 9:13a [facility] Bri Forbes, R10.32 Left lower Assocvalerio M.D. quadrant pain Hospitalists F50.9 Eating disorder, unspecified Office Visit 08/28/2019 1:40p [facility] Internal Armen Goodman MD R41.3 Other [...] H92.01 Otalgia, right ear Armen Goodman MD 11/06/2019 E11.9 Type 2 diabetes mellitus without Armen Goodman MD complications 11/06/2019 M62.82 Rhabdomyolysis Armen Goodman MD 11/06/2019 Z79.4 senior care (current) use of insulin Armen Goodman MD [...] Lisa Lito, D.O. opioid-induced disorder 10/12/2019 Z79.4 senior care (current) use of insulin Lisa Lito, D.O. 10/11/2019 Z13.6 Encounter for screening for Quirino Gallo M.D. cardiovascular disorders 10/11/2019 K52.9 Noninfective gastroenteritis and colitis, Lisa Lito, D.O. unspecified 10/11/2019 F32.9 Major depressive disorder, single Lisa Lito, D.O. episode, unspecified 10/11/2019 E11.43 Type 2 diabetes mellitus with diabetic Lisa Lito, D.O. autonomic (poly)neuropathy 10/11/2019 K31.84 Gastroparesis Lisa Lito, D.O. 10/11/2019 Z79.4 senior care (current) use of insulin Lisa Lito, D.O. 10/11/2019 I10 Essential (primary) hypertension Lisa Lito D.O. 10/11/2019 F11.99 Opioid use, unspecified with [...] unspecified, uncomplicated Elizabeth Stark MD 10/09/2019 Z79.4 senior care (current) use of insulin Elizabeth Stark MD [...] three times a day as needed for irwzzivA77.01 Otalgia, right earNew Medication:Amoxicillin/Clavulanate Potassium 875-125 mg - take 1 pill twice a day. Functional Status Description No Information Available Mental Status Description No Information Available Referrals Refer to Reason for Referral Status Appt Date [facility] Audiology b/l hearing loss [address] [place] [address] [phone] So Nolen AU.D b/l hearing loss; Called referral office, Sent refaxed 10/02 DO NOT PAR [address] [place] [address] [phone] Robert Sandhu MD hypercoag work up, unprovoked PE January 2019; Sent Called referral office, refaxed 10/02 [address] [place] [address] [phone]
--- OUTSIDE RECORDS SUMMARY | 2020-02-16 12:40 | XMS REPORT | Summary of Care ---
:1965 Author Organization [facility] Address [address] [address] Care Team Providers Name Role Phone Armen Goodman MD Primary Care Provider Deepali Barboza RN Chronic Disease Nurse Educator Unavailable Reason for Referral (Routine) Status Reason Specialty Diagnoses / Procedures Referred By Contact Referred To Contact Dario Covarrubias MD [address] [address] Scheduling Instructions Reason for Consult: S/p colonoscopy in 06/2019. Preparation of the colon was poor at that time. Patient continues to have BRBPR likely 2/2 ?hemorrhoids. Pls evaluate for repeat colonoscopy. Patient Background: Evie Simpson is a 54-y.o. female Reason for Visit Reason Comments Breathing Problem Fever Auth/Cert Status Reason Specialty Diagnoses / Procedures Referred By Contact Referred To Contact Encounter Details Date Type Department Care Team Description 12/25/2019 - Hospital Encounter [facility] [address] [place] Sravan Kilgore MD [address] [address] Inpatient 12/29/2019 1 Alfred Hernández MD [address] [id number] [place] [address] Dario Covarrubias MD [address] [address] [phone] Allergies Active Allergy Reactions Severity Noted Date Comments Penicillins Other 12/07/2016 "Pass out" Reglan Other High 12/22/2016 Panick Attack. Sulfa Antibiotics Hives 12/07/2016 documented as of this encounter (statuses as of 12/30/2019) Medications Medication Sig Dispensed Refills Start Date End Date Status polyethylene glycol Take 1 PKT by 7 Packet 0 07/30/2017 Active (MIRALAX) Oral Pack mouth DAILY. Additional information Patient taking differently: 17 g Oral BID, Reported on 12/25/2019 11:09 PM Buprenorphine HCl-Naloxone HCl Place 1 Film under tongue 0 Active (SUBOXONE) 8-2 MG Sublingual THREE TIMES DAILY. FILMIndications: takes 8-2 mg Indications: takes 8-2 mg BID BID Insulin Glargine 100 UNIT/ML Inject 40-60 Units 12 Each 1 03/23/2018 Active Subcutaneous Solution beneath the skin TWICE Pen-injectorIndications: Type DAILY. 60 units in the am 2 diabetes mellitus with and 40 at night diabetic polyneuropathy, with long-term current use of insulin (HCC) Quetiapine Fumarate (SEROQUEL) Take 1 Tab by mouth EVERY 30 Tab 4 2017 Active 50 MG Oral TabIndications: BEDTIME NEEDED Severe single current episode (difficulty sleeping). of major depressive disorder, without psychotic features (HCC), Anxiety Fluoxetine HCl 40 MG Oral Take 1 Cap by mouth 30 Cap 2 06/27/2018 Active CapIndications: Severe single DAILY. current episode of major depressive disorder, without psychotic features (HCC), Anxiety Topiramate 50 MG Oral Take 1 Tab by mouth TWICE 60 Tab 5 06/27/2018 Active TabIndications: Anxiety, DAILY. G43.009 Nonintractable migraine, unspecified migraine type atorvastatin (LIPITOR) 20 MG Take 1 Tab by mouth 90 Tab 1 06/27/2018 Active Oral TabIndications: Mixed DAILY. hyperlipidemia promethazine (PHENERGAN) 25 MG Take 1 Tab by mouth EVERY 12 Tab 0 2017 Active Oral Tab EIGHT HOURS NEEDED for nausea for up to 12 doses. gabapentin (NEURONTIN) 300 MG Take 600 mg by mouth 0 Active Oral Cap THREE TIMES DAILY. sucralfate (CARAFATE) 1 GM Take 1 Tab by mouth FOUR 120 Tab 0 09/09/2018 Active Oral Tab TIMES DAILY - BEFORE MEALS & NIGHTLY. 30 minutes before eating Additional information Patient taking differently: 1 g Oral PRN, 30 minutes before eating, Reported on 12/25/2019 11:09 PM apixaban (ELIQUIS) 5 Take by mouth 0 Active MG Oral Tab TWICE DAILY. bethanechol Take 1 Tab by 120 Tab 5 05/29/ Active (URECHOLINE, DUVOID) mouth FOUR TIMES 2019 25 MG Oral DAILY. TabIndications: Gastroparesis cloNIDine (CATAPRES) Take 0.5 Tabs by 60 Tab 0 10/29/ Active 0.1 MG Oral Tab mouth TWICE 2019 DAILY. pantoprazole Take 1 Tab by 30 Tab 5 11/02/ Active (PROTONIX) 40 MG Oral mouth BEFORE 2019 Tab EC BREAKFAST. nicotine transdermal Place 1 Patch 30 Patch 0 12/30/ 01/28/ Active patch-daily onto skin DAILY 2019 2019 (NICODERM) 21 MG/24HR for 30 days. Transdermal PATCH 24 HR oseltamivir (TAMIFLU) Take 1 Cap by 2 Cap 0 12/30/ Active 75 MG Oral Cap mouth TWICE DAILY 2019 2019 for 1 day. dextromethorphan-guai Take 10 mL by 420 mL 0 01/05/ Active fenesin (ROBITUSSIN mouth EVERY FOUR 2019 2019 DM) 10-100 MG/5ML HOURS for 7 days. Oral Syrup acetaminophen Take 2 Tabs by 84 Tab 0 01/05/ Active (TYLENOL) 325 MG Oral mouth EVERY FOUR 2019 2019 Tab HOURS NEEDED (pain) for up to 7 days. benzocaine-menthol Take 1 Lozenge by 30 Each 0 01/03/ Active (CEPACOL) 15-3.6 MG mouth EVERY FOUR 2019 2019 Mouth/Throat Lozenge HOURS NEEDED (sore throat) for up to 5 days. budesonide (RHINOCORT [place] in 1 Bottle 0 12/30/ 01/06/ Active AQ) 32 MCG/ACT Nasal nose DAILY for 7 2019 2019 Suspension days. levofloxacin Take 1 Tab by 5 Tab 0 01/03/ Active (LEVAQUIN) 750 MG mouth DAILY 0700 2019 2019 Oral Tab on Empty Stomach for [address]. [address] 1 Appl per 1 Tube 0 01/05/ Active (ANUSOL-HC,PROCTOSOL- rectum TWO TIMES 2019 2019 HC) 2.5 % Rectal DAILY NEEDED Cream (rectal pain) for up to 7 days. OXYcodone-acetaminoph Take 1 Tab by 28 Tab 0 12/29/ Discontinued ( No en (PERCOCET) 5-325 mouth EVERY EIGHT 2018 2019 longer clinically MG Oral Tab HOURS NEEDED indicated) (for severe pain). Max Daily Amount: [address] 1 14 Suppository 0 12/29/ Discontinued (ANUSOL HC) 25 MG Suppository per 2019 2019 (Alternative Rectal rectum DAILY Therapy) SupposIndications: NEEDED (rectal Hemorrhoids pain) for up to 14 days. Indications: Hemorrhoids moxifloxacin (AVELOX) Take 1 Tab by 5 Tab 0 12/29/ Discontinued 400 MG Oral Tab mouth DAILY for 2019 (Alternative days. Therapy) documented as of this encounter (statuses as of 12/30/2019) Active Problems Problem Noted Date Influenza A 12/25/2019 Rhabdomyolysis 10/25/2019 Duodenal ulcer [...] as of this encounter (statuses as of 12/30/2019) Resolved Problems Problem Noted Date Resolved Date [...] as of this encounter (statuses as of 12/30/2019) Immunizations Name Administration Dates Next Due Influenza (IM) Preservative Free 12/26/2018, 09/09/2018 (), 09/20/2017 PNEUMOCOCCAL POLYSACCHARIDE VACCINE 05/14/2017 documented as of this encounter Social History Tobacco Use Types Packs/Day Years Used Date Current Some Day Smoker Cigarettes 0.1 20 Quit: 02/07/2019 Smokeless Tobacco: Never Used Tobacco Cessation: Ready to Quit: No; Counseling Given: Yes Alcohol Use Drinks/Week oz/Week Comments No Social Isolation Answer Date Recorded In a typical week, how many times do you More than three times a week 2018 talk on the phone with family, friends, or neighbors? How often do you get together with friends More than three times a week 10/25 or relatives? How often do you attend rastafari or Never 10/25/2019 latter-day services? Do you belong to any clubs or No 10/25/2019 organizations such as rastafari groups, unions, fraternal or athletic groups, or [...] Sign Reading Time Taken Comments Blood Pressure 145/70 12/29/2019 11:30 RN; Krish Garces. AM EST Pulse 82 12/29/2019 11:30 AM EST Temperature 37.1 12/29/2019 11:30 C (98.8 AM EST F) Respiratory Rate 18 12/29/2019 11:30 AM EST Oxygen Saturation 96% 12/29/2019 11:30 AM EST Inhaled Oxygen - - Concentration Weight 67.7 kg (149 lb 3.2 12/25/2019 11:20 oz) PM EST Height 154.9 cm (5' 1") 12/25/2019 11:20 PM EST Body Mass Index 28.19 12/25/2019 11:20 PM EST documented in this encounter Discharge Summaries Dario Covarrubias MD - 12/29/2019 12:27 PM EST [facility] [address] [id number] Discharge Summary Patient ID: Evie Simpson [id number] 54-y.o. 1965 Admission date: 12/25/2019 Discharge date: 12/29/2019 Admitting Physician: Alfred Abbasi MD Indication for Admission: Influenza A infection Principal Diagnosis: Influenza A infection Other medical problems managed in the hospital: Pneumonia, hypertension, gastroparesis, diabetes Discharged Condition: good Hospital Course: 54F with h/o DM2, Depression, h/o PE, GERD, h/o opioid dependence, h/o colonic ischemia p/w subjective fevers, sinus congestin, cough, rigors and chills. She was diagnosed with Influenza A infection. She was started on Tamiflu. There was improvementin Reiger's and chills. However the patient continued to complain of severe cough. Repeat chest x-ray was done. Patient was found to have right upper lobe pneumonia. Patient was started on IV moxifloxacin. She was also given inhalational steroid and lozenges for sore throat and nasal congestion. Blood cultures remain negative. Of note, the patient complained of mild bright red blood on toilet paper and streaks intermixed with her stool. She also complained of diarrhea. Patient has a known history of colonoscopy in June2019 preparation of the colon was poor at that time. Hence, gastroenterology was consulted. They recommended outpatient colonoscopy. They opined that rectal bleeding was likely hemorrhoidal. They recommended to give Anusol suppository and MiraLAX. XR CHEST 1 VIEW Final Result As above Urgency: Routine. This is a routine medical imaging report. Recommendation: No specific imaging recommendation. Signed by Laureen Evans MD on 12/28/2019 4:27 PM XR CHEST 1 VIEW Final Result No acute cardiopulmonary findings. Signed by Nadir Lynn on 12/25/2019 8:[address] ABDOMEN PELVIS WITH IV CONTRAST Final Result No evidence of diverticulitis. Severe proximal constipation pattern, and constipation throughout Urgency: Routine. This is a routine medical imaging report. Recommendation: No specific imaging recommendation. Signed by Laureen Evans MD on 12/25/2019 7:43 PM I examined the patient on the day of discharge and deemed her hemodynamically stable for discharge. Consults: CONSULT TO GASTROENTEROLOGY Treatments: analgesia antibiotics cardiac meds insulin IV hydration Complications: None Medications: Current Discharge Medication List START taking these medications acetaminophen 325 MG Tabs Commonly known as: TYLENOL Dose: 650 mg Quantity: 84 Tab Refills: 0 Take 2 Tabs by mouth EVERY FOUR HOURS NEEDED (pain) for up to 7 days. benzocaine-menthol 15-3.6 MG Lozg Commonly known as: CEPACOL Dose: 1 Lozenge Quantity: 30 Each Refills: 0 Take 1 Lozenge by mouth EVERY FOUR HOURS NEEDED (sore throat) for up to 5 days. budesonide 32 MCG/ACT Susp Commonly known as: RHINOCORT AQ Dose: 1 [place] Start taking on: December 30, 2019 Quantity: 1 Bottle Refills: 0 [place] 1 [place] in nose DAILY for 7 days. dextromethorphan-guaifenesin 10-100 MG/5ML Syrp Commonly known as: ROBITUSSIN DM Dose: 10 mL Quantity: 420 mL Refills: 0 Take 10 mL by mouth EVERY FOUR HOURS for 7 days. hydrocortisone 2.5 % Crea Commonly known as: ANUSOL-HC,PROCTOSOL-HC Dose: 1 Appl Quantity: 1 Tube Refills: 0 Place 1 Appl per rectum TWO TIMES DAILY NEEDED (rectal pain) for up to 7 days. levofloxacin 750 MG Tabs Commonly known as: LEVAQUIN Dose: 750 mg Quantity: 5 Tab Refills: 0 Take 1 Tab by mouth DAILY 0700 on Empty Stomach for 5 days. nicotine transdermal patch-daily 21 MG/24HR Pt24 Commonly known as: NICODERM Dose: 21 mg Start taking on: December 30, 2019 Quantity: 30 Patch Refills: 0 Place 1 Patch onto skin DAILY for 30 days. oseltamivir 75 MG Caps Commonly known as: TAMIFLU Dose: 75 mg Quantity: 2 Cap Refills: 0 Take 1 Cap by mouth TWICE DAILY for 1 day. CONTINUE these medications which have changed polyethylene glycol Pack Commonly known as: MIRALAX Dose: 17 g What changed: when to take this Quantity: 7 Packet Refills: 0 Take 1 PKT by mouth DAILY. sucralfate 1 GM Tabs Commonly known as: CARAFATE Dose: 1,000 mg What changed: when to take this reasons to take this Quantity: 120 Tab Refills: 0 Take 1 Tab by mouth FOUR TIMES DAILY - BEFORE MEALS & NIGHTLY. 30 minutes before eating CONTINUE these medications which have NOT CHANGED atorvastatin 20 MG Tabs Commonly known as: LIPITOR Dose: 20 mg Quantity: 90 Tab Refills: 1 Take 1 Tab by mouth DAILY. bethanechol 25 MG Tabs Commonly known as: URECHOLINE, DUVOID Dose: 25 mg Quantity: 120 Tab Refills: 5 Take 1 Tab by mouth FOUR TIMES DAILY. cloNIDine 0.1 MG Tabs Commonly known as: CATAPRES Dose: 0.05 mg Quantity: 60 Tab Refills: 0 Take 0.5 Tabs by mouth TWICE DAILY. ELIQUIS 5 MG Tabs Generic drug: apixaban Refills: 0 Take by mouth TWICE DAILY. Fluoxetine HCl 40 MG Caps Dose: 40 mg Quantity: 30 Cap Refills: 2 Take 1 Cap by mouth DAILY. gabapentin 300 MG Caps Commonly known as: NEURONTIN Dose: 600 mg Refills: 0 Take 600 mg by mouth THREE TIMES DAILY. Insulin Glargine 100 UNIT/ML Sopn Dose: 40-60 Units Quantity: 12 Each Refills: 1 Inject 40-60 Units beneath the skin TWICE DAILY. 60 units in the am and 40 at night pantoprazole 40 MG Tbec Commonly known as: PROTONIX Dose: 40 mg Quantity: 30 Tab Refills: 5 Take 1 Tab by mouth BEFORE BREAKFAST. promethazine 25 MG Tabs Commonly known as: PHENERGAN Dose: 25 mg Quantity: 12 Tab Refills: 0 Take 1 Tab by mouth EVERY EIGHT HOURS NEEDED for nausea for up to 12 doses. Quetiapine Fumarate 50 MG Tabs Commonly known as: SEROQUEL Dose: 50 mg Quantity: 30 Tab Refills: 4 Take 1 Tab by mouth EVERY BEDTIME NEEDED (difficulty sleeping). SUBOXONE 8-2 MG Film Generic drug: Buprenorphine HCl-Naloxone HCl Dose: 1 Film For: takes 8-2 mg BID Refills: 0 Place 1 Film under tongue THREE TIMES DAILY. Indications: takes 8-2 mg BID Topiramate 50 MG Tabs Dose: 50 mg Quantity: 60 Tab Refills: 5 Take 1 Tab by mouth TWICE DAILY. G43.009 Stop taking these previous medications OXYcodone-acetaminophen 5-325 MG Tabs Commonly known as: PERCOCET Where to Get Your Medications These medications were sent to [facility] [address] [id number] acetaminophen 325 MG Tabs benzocaine-menthol 15-3.6 MG Lozg budesonide 32 MCG/ACT Susp dextromethorphan-guaifenesin 10-100 MG/5ML Syrp hydrocortisone 2.5 % Crea levofloxacin 750 MG Tabs nicotine transdermal patch-daily 21 MG/24HR Pt24 oseltamivir 75 MG Caps Patient Instructions: Activity/Restrictions: activity as tolerated Skin/Wound Care: Keep right arm wound clean and dry. Observe for redness, swelling, or drainage. Apply warm packs for pain relief. Discharge Diet: Diabetic Diet Special Instructions: Please follow up with: 1) Your PCP in one week. 2) GI clinic in 6-8 weeks. Total duration of time spent: 35 minutes. Provider Signature: Dario Covarrubias MD documented in this encounter Discharge Instructions InstructionsSoDario pelayo MD - 12/29/2019Provider's Instructions Reason for Admission or Diagnosis: Influenza A infection Activity/Restrictions: activity as tolerated Skin/Wound Care: Keep right arm wound clean and dry. Observe for redness, swelling, or drainage. Apply warm packs for pain relief. Discharge Diet: Diabetic Diet Special Instructions: Please follow up with: 1) Your PCP in one week. 2) GI clinic in 6-8 weeks. Discharge Provider: Dario Covarrubias MD Attending: Dario Covarrubias MD Time: 11:08 {Provider's stop here} Nurse's Instructions Problems to report to your Physician: Excessive pain or discomfort Fever > 100.5 degrees Difficulty breathing Increase or smell in wound drainage Skin/Wound Care: Skin intact on discharge:N/A Medical Equipment/Supplies to help you at home: N/A Help arranged for you Home Health/Receiving Agency: N/A documented in this encounter Progress Notes Dario Covarrubias MD - 12/28/2019 5:17 PM EST [facility] [place] [address] Hospitalist Progress Note Date of Service: 12/28/2019 Patient: Evie Simpson Essie #: [id number] Attending: DARIO COVARRUBIAS MD ,MD Subjective: Continues to have severe non-productive cough. C/o post nasal drip and nasal congestion. No c/o fever or chills. Physical: Objective: Blood pressure (!) 144/79, pulse 59, temperature 97.6 F (36.4 C), temperature source Temporal, resp. rate 17, height 5' 1" (1.549 m), weight 149 lb 3.2 oz (67.7 kg), SpO2 96 %, not currently . General: no distress Lungs: clear Heart: RRR Abd: soft Ext: warm Neuro: aao x 3 Data: Lab Results Component Value Date NA 139 12/27/2019 K 3.3 (L) 12/27/2019 CL 110 (H) 12/27/2019 CO2 23 12/27/2019 GLUCOSE 81 12/27/2019 BUN 11 12/27/2019 CREATININE 0.3 (L) 12/27/2019 CALCIUM 8.5 12/27/2019 EGFR >60 12/27/2019 Lab Results Component Value Date WBC 5.72 12/27/2019 HGB 11.5 12/27/2019 HCT 35.5 12/27/2019 PLAT 136 (L) 12/27/2019 Plan/Impression: Influenza A infection: cw tamiflu, prednisone, and antitussives. CXR concerning for RUL PNA. Start moxifloxacin. Add inh steroid and prn lozenges. BRBPR: likely hemorrhoidal. cw anusol suppository and miralax. appreciate GI recs. HTN, depression: cw home meds Opioid abuse disorder: cw subutex DM-2: glargine and ISS Author: Dario Covarrubias MD Dario Guzman MD - 12/27/2019 5:37 PM EST [facility] [address] [place]. [address] Hospitalist Progress Note Date of Service: 12/27/2019 Patient: Evie Fountain #: [id number] Attending: DARIO COVARRUBIAS MD , Subjective: No diarrhea today. Had blood streaked BM. Physical: Objective: Blood pressure 131/73, pulse 70, temperature 98.5 F (36.9 C) , temperature source Temporal, resp. rate 21, height 5' 1" (1.549 m), weight 149 lb 3.2 oz (67.7 kg), SpO2 95 %, not currently . General: no distress Lungs: clear Heart: RRR Abd: soft Ext: warm Neuro: aao x 3 Data: Lab Results Component Value Date NA 139 12/27/2019 K 3.3 (L) 12/27/2019 CL 110 (H) 12/27/2019 CO2 23 12/27/2019 GLUCOSE 81 12/27/2019 BUN 11 12/27/2019 CREATININE 0.3 (L) 12/27/2019 CALCIUM 8.5 12/27/2019 EGFR >60 12/27/2019 Lab Results Component Value Date WBC 5.72 12/27/2019 HGB 11.5 12/27/2019 HCT 35.5 12/27/2019 PLAT 136 (L) 12/27/2019 Plan/Impression: Influenza A infection: cw tamiflu, prednisone, and antitussives BRBPR: likely hemorrhoidal. cw anusol suppository and miralax. appreciate GI recs. HTN, depression: cw home meds Opioid abuse disorder: cw subutex DM-2: glargine and ISS Author: Dario Covarrubias MD Dario Guzman MD - 12/26/2019 5:44 PM EST [facility] [address] [place] [address] Hospitalist Progress Note Date of Service: 12/26/2019 Patient: Evie Simpson B #: [id number] Attending: DARIO COVARRUBIAS MD ,MD Subjective: C/o worsening BRBPR x 4 days. Also, c/o watery diarrhea x3 today. Physical: Objective: Blood pressure (!) 163/77, pulse 64, temperature 97.5 F (36.4 C), temperature source Temporal, resp. rate 20, height 5' 1" (1.549 m), weight 149 lb 3.2 oz (67.7 kg), SpO2 92 %, not currently . General: no distress Lungs: clear to auscultation Heart: regular rate and rhythm Abd: soft Ext: warm Neuro: Mental status:awake, alert and oriented Data: Lab Results Component Value Date NA 132 (L) 12/25/2019 K 3.5 12/25/2019 CL 101 12/25/2019 CO2 22 12/25/2019 GLUCOSE 112 (H) 12/25/2019 BUN 26 (H) 12/25/2019 CREATININE 0.5 (L) 12/25/2019 CALCIUM 8.6 12/25/2019 EGFR >60 12/25/2019 Lab Results Component Value Date WBC 5.76 12/25/2019 HGB 12.6 12/25/2019 HCT 38.0 12/25/2019 PLAT 134 (L) 12/25/2019 Plan/Impression: Influenza A infection: cw tamiflu, prednisone and antitussives BRBPR, watery diarrhea: S/p colonoscopy in 06/2019. Preparation of the colon was poor at that time. Patient continues to have BRBPR likely 2/2 ?hemorrhoids. Consult GI. Send stool for c.diff. start anusol suppository for hemorrhoids. HTN, depression: cw home meds Opioid abuse disorder: subutex DM-2: glargine and ISS Author: Dario Covarrubias MD documented in this encounter Plan of Treatment Date Type Specialty Care Team Description 01/16/2020 Office Visit General Surgery Marilyn Loja MD [address] [address] [phone] 02/08/2020 Office Visit Gastroenterology Eden Jones NP [address] [address] [phone] Name Type Priority Associated Diagnoses Date/Time BLOOD CULTURE (C&S) Lab STAT 12/25/2019 5:48 PM EST BLOOD CULTURE (C&S) Lab STAT 12/25/2019 6:12 PM EST ADULT BLOOD CULTURE Lab STAT 12/25/2019 5:48 PM EST ADULT BLOOD CULTURE Lab STAT 12/25/2019 6:12 PM EST Health Maintenance Due Date Last Done Comments [...] Author Type Problems Progress Lack of Barrier griffin Villavicencio MD Note: This is an individualized goal for Evie Simpson: Our records indicate that you may not have health insurance. This can be a barrier to getting necessary medical care. Our business office may be able to help. Please call the [facility] Office at [phone] and schedule an appointment to evaluate your options. You may be eligible for a health insurance product which could help pay for your doctor's visits and medications. Blood Pressure < Blood Pressure 145/70 (12/29/2019 11:30 No Ceasar Leigh MD 140/90 AM EST) [...] lower numbers are better. Work with your Nursery Technician General No Saleem Bueno MD Note: This is an individualized treatment (frequent ED use) goal for Evie Simpson: Please work with your Nursery Technician, who will assist you in meeting your goals of care. Keep immunizations current Lifestyle No Viviana [place] MD Note: This [...] depression. Weight loss vs. 18 mo Lifestyle 1.9 (12/25/2019 11:20 PM No [place] Card RN max (lbs) [...] Comments Diagnosis HC GLUCOSE, BY MONITOR Routine 12/29/2019 11:15 Results for this AM EST procedure are in the results section. HC GLUCOSE, BY MONITOR Routine 12/29/2019 8:09 Results for this AM EST procedure are in the results section. BASIC METABOLIC PANEL Routine 12/29/2019 5:49 Results for this AM EST procedure are in the results section. CBC NO DIFFERENTIAL Routine 12/29/2019 5:49 Results for this AM EST procedure are in the results section. HC GLUCOSE, BY MONITOR Routine 12/28/2019 8:42 Results for this PM EST procedure are in the results section. XR CHEST 1 VIEW KE 12/28/2019 4:20 Results for this PM EST procedure are in the results section. HC GLUCOSE, BY MONITOR Routine 12/28/2019 4:19 Results for this PM EST procedure are in the results section. HC GLUCOSE, BY MONITOR Routine 12/28/2019 11:29 Results for this AM EST procedure are in the results section. HC GLUCOSE, BY MONITOR Routine 12/28/2019 8:14 Results for this AM EST procedure are in the results section. HC GLUCOSE, BY MONITOR Routine 12/27/2019 10:12 Results for this PM EST procedure are in the results section. HC GLUCOSE, BY MONITOR Routine 12/27/2019 5:43 Results for this PM EST procedure are in the results section. HC GLUCOSE, BY MONITOR Routine 12/27/2019 12:23 Results for this PM EST procedure are in the results section. HC GLUCOSE, BY MONITOR Routine 12/27/2019 8:11 Results for this AM EST procedure are in the results section. BASIC METABOLIC PANEL Routine 12/27/2019 6:56 Results for this AM EST procedure are in the results section. CBC NO DIFFERENTIAL Routine 12/27/2019 6:56 Results for this AM EST procedure are in the results section. HC GLUCOSE, BY MONITOR Routine 12/26/2019 9:26 Results for this PM EST procedure are in the results section. HC GLUCOSE, BY MONITOR Routine 12/26/2019 5:21 Results for this PM EST procedure are in the results section. HC GLUCOSE, BY MONITOR Routine 12/26/2019 12:11 Results for this PM EST procedure are in the results section. HC GLUCOSE, BY MONITOR Routine 12/26/2019 12:17 Results for this AM EST procedure are in the results section. INFLUENZA A&B ASSAY STAT 12/25/2019 8:17 Results for this PM EST procedure are in the results section. XR CHEST 1 VIEW STAT 12/25/2019 8:03 Results for this PM EST procedure are in the results section. CT ABDOMEN PELVIS WITH STAT 12/25/2019 7:18 Results for this IV CONTRAST PM EST procedure are in the results section. ADULT BLOOD CULTURE STAT 12/25/2019 6:12 PM EST URINALYSIS (LAB) WITH STAT 12/25/2019 6:03 Results for this REFLEX CULTURE PM EST procedure are in the results section. PLATELET CHECK / Routine 12/25/2019 5:48 REVIEW PM EST CBC WITH DIFFERENTIAL STAT 12/25/2019 5:48 Results for this PM EST procedure are in the results section. ADULT BLOOD CULTURE STAT 12/25/2019 5:48 PM EST TROPONIN STAT 12/25/2019 5:48 Results for this PM EST procedure are in the results section. LACTIC ACID (LAB) STAT 12/25/2019 5:48 Results for this PM EST procedure are in the results section. COMPREHENSIVE STAT 12/25/2019 5:48 Results for this METABOLIC PANEL PM EST procedure are in the results section. IN PT/ED 12 LEAD EKG Routine 12/25/2019 5:39 Other chest pain Results for this PM EST procedure are in the results section. documented in this encounter Results GLUCOSE (POCT) (12/29/2019 11:15 AM EST) Glucose POCT 123 (H) 70 - 99 mg/dl POINT OF CARE Result Comment: TESTING Performed at: [facility] POCT Rodo Garza MD, Laboratory Customer Service Driver [address] [place] [id number] Specimen Performing Organization Address [facility] Number POINT OF CARE TESTING GLUCOSE (POCT) (12/29/2019 8:09 AM EST) Glucose POCT 66 (L) 70 - 99 mg/dl POINT OF CARE Result Comment: TESTING Performed at: [facility] POCT Rodo Garza MD, Laboratory Customer Service Driver [address] [place] [id number] Specimen Performing Organization Address [facility] Phone Number POINT OF CARE TESTING CBC NO DIFFERENTIAL (12/29/2019 5:49 AM EST) WBC Count 5.70Comment: 3.98 - 10.04 [facility] Methodology was K/uL [facility] changed 12/01/2018. Please note updated reference range and units. RBC Count 4.39 3.93 - 5.22 [facility] M/UL [facility] Hemoglobin 12.6 11.2 - 15.7 [facility] g/dL [facility] Hematocrit 38.0 34.1 - 44.9 % [facility] MCV 86.6 79.4 - 94.8 [facility] FL [facility] MCH 28.7 25.6 - 32.2 [facility] PG [facility] MCHC 33.2 32.2 - 35.5 [facility] g/dL [facility] Platelet Count 163 (L) 182 - 369 [place] [facility] K/uL [facility] MPV 11.7 9.4 - 12.3 FL [facility] RDW 13.1 11.7 - 14.4 % [facility] Specimen Blood - Blood specimen (specimen) Performing Organization Address [facility] Phone Number [facility] [address] [place] [address] BASIC METABOLIC PANEL (12/29/2019 5:49 AM EST) Glucose 151 (H) 70 - 99 mg/dl [facility] BUN 16 7 - 17 mg/dl [facility] Creatinine 0.4 (L) 0.7 - 1.2 mg/dl [facility] Sodium 139 134 - 145 mmol/L [facility] Potassium 3.5 3.5 - 5.1 mmol/L [facility] Chloride 108 (H) 98 - 107 mmol/L [facility] CO2 24 22 - 30 mmol/L [facility] Calcium 8.5 8.3 - 10.1 mg/dl [facility] eGFR >60 See Interpretation [facility] Comment: Below ml/min/1.73ml [facility] Estimated GFR Interpretation: Sq LABORATORY Above 60ml/min/1.73m2 = Normal Renal Function 30-59 ml/min/1.73m2 = Stage 3 Chronic Kidney Disease 15-29 ml/min/1.73m2 = Stage 4 Chronic Kidney Disease Less than 15 ml/min/1.73m2 = Stage 5 Chronic Kidney Disease The GFR value is calculated using the Modification of Diet in Renal Disease ( MDRD) Study Equation which can be found at: https://www.kidney.org/content/jyzw-bwqxi-htoulise BUN/Creatinine 40 (H) 6 - 22 RATIO [facility] LABORATORY Anion Gap 7 3 - 11 mmol/L [facility] Specimen Blood - Blood specimen (specimen) Performing Organization Address City/[facility] Phone Number [facility] [address] [place] [address] [phone] GLUCOSE (POCT) (12/28/2019 8:42 PM EST) Glucose POCT 375 (H) 70 - 99 mg/dl POINT OF CARE Result Comment: TESTING Performed at: [facility] POCT Rodo Garza MD, Laboratory Customer Service Driver [address] [place] [address] Specimen Performing Organization Address City/[facility] Phone Number POINT OF CARE TESTING XR CHEST 1 VIEW (12/28/2019 4:20 PM EST) Specimen Impressions Performed At As above Urgency: Routine. This is a routine medical imaging report. Recommendation: No specific imaging recommendation. Signed by Laureen Evans MD on 12/28/2019 4:27 PM Narrative Performed At Procedure(s): XR CHEST 1 VIEW Date of service: 12/28/2019 3:52 PM Provided clinical information: 54 years, Female, "worsening cough" Procedure and materials: Standard protocol. Comparison studies: Chest portable December 25, 2019 1959 hours Observations: Question vague focus of pneumonia in the right upper lobe, otherwise no change Procedure Note Interface, Rad Results - 12/28/2019 4:30 PM EST Procedure(s): XR CHEST 1 VIEW Date of service: 12/28/2019 3:52 PM Provided clinical information: 54 years, Female, "worsening cough" Procedure and materials: Standard protocol. Comparison studies: Chest portable December 25, 20191958 hours Observations: Question vague focus of pneumonia in the right upper lobe, otherwise no change IMPRESSION As above Urgency: Routine. This is a routine medical imaging report. Recommendation: No specific imaging recommendation. Signed by Laureen Evans MD on 12/28/2019 4:27 PM GLUCOSE (POCT) (12/28/2019 4:19 PM EST) Glucose POCT 245 (H) 70 - 99 mg/dl POINT OF CARE Result Comment: TESTING Performed at: [facility] POCT Rodo Garza MD, Laboratory Customer Service Driver [address] [place] [id number] Specimen Performing Organization Address [facility] Phone Number POINT OF CARE TESTING GLUCOSE (POCT) (12/28/2019 11:29 AM EST) Glucose POCT 90 70 - 99 mg/dl POINT OF CARE Result Comment: TESTING Performed at: [facility] POCT Rodo Garza MD, Laboratory Customer Service Driver [address] [place] [id number] Specimen Performing Organization Address City/[facility] Phone Number POINT OF CARE TESTING GLUCOSE (POCT) (12/28/2019 8:14 AM EST) Glucose POCT 66 (L) 70 - 99 mg/dl POINT OF CARE Result Comment: TESTING Performed at: [facility] POCT Rodo Garza MD, Laboratory Customer Service Driver [address] [place] [id number] Specimen Performing Organization Address City/[facility] Phone Number POINT OF CARE TESTING GLUCOSE (POCT) (12/27/2019 10:12 PM EST) Glucose POCT 245 (H) 70 - 99 mg/dl POINT OF CARE Result Comment: TESTING Performed at: [facility] POCT Rodo Garza MD, Laboratory Customer Service Driver [address] [place] [id number] Specimen Performing Organization Address City/[facility] Phone Number POINT OF CARE TESTING GLUCOSE (POCT) (12/27/2019 5:43 PM EST) Glucose POCT 230 (H) 70 - 99 mg/dl POINT OF CARE Result Comment: TESTING Performed at: [facility] POCT Rodo Garza MD, Laboratory Customer Service Driver [address] [place] [id number] Specimen Performing Organization Address City/[facility] Phone Number POINT OF CARE TESTING GLUCOSE (POCT) (12/27/2019 12:23 PM EST) Glucose POCT 182 (H) 70 - 99 mg/dl POINT OF CARE Result Comment: TESTING Performed at: [facility] POCT Rodo Garza MD, Laboratory Customer Service Driver [address] [place] [id number] Specimen Performing Organization Address [facility] Phone Number POINT OF CARE TESTING GLUCOSE (POCT) (12/27/2019 8:11 AM EST) Glucose POCT 79 70 - 99 mg/dl POINT OF CARE Result Comment: TESTING Performed at: [facility] POCT Rodo Garza MD, Laboratory Customer Service Driver [address] [place] [id number] Specimen Performing Organization Address [facility] Phone Number POINT OF CARE TESTING BASIC METABOLIC PANEL (12/27/2019 6:56 AM EST) Glucose 81 70 - 99 mg/dl [facility] BUN 11 7 - 17 mg/dl [facility] Creatinine 0.3 (L) 0.7 - 1.2 mg/dl [facility] Sodium 139 134 - 145 mmol/L [facility] Potassium 3.3 (L) 3.5 - 5.1 mmol/L [facility] Chloride 110 (H) 98 - 107 mmol/L [facility] CO2 23 22 - 30 mmol/L [facility] Calcium 8.5 8.3 - 10.1 mg/dl [facility] eGFR >60 See Interpretation [facility] Comment: Below ml/min/1.73ml GROUP Estimated GFR Interpretation: Sq LABORATORY Above 60ml/min/1.73m2 = Normal Renal Function 30-59 ml/min/1.73m2 = Stage 3 Chronic Kidney Disease 15-29 ml/min/1.73m2 = Stage 4 Chronic Kidney Disease Less than 15 ml/min/1.73m2 = Stage 5 Chronic Kidney Disease The GFR value is calculated using the Modification of Diet in Renal Disease ( MDRD) Study Equation which can be found at: https://www.kidney.org/content/bvds-aawnc-dzemyeas BUN/Creatinine 37 (H) 6 - 22 RATIO [facility] Ratio [facility] Anion Gap 6 3 - 11 mmol/L [facility] Specimen Blood - Blood specimen (specimen) Performing Organization Address [facility] Phone Number [facility] [address] [place] [address] CBC NO DIFFERENTIAL (12/27/2019 6:56 AM EST) WBC Count 5.72Comment: 3.98 - 10.04 [facility] Methodology was K/uL [facility] changed 12/01/2018. Please note updated reference range and units. RBC Count 4.02 3.93 - 5.22 [facility] M/UL [facility] Hemoglobin 11.5 11.2 - 15.7 [facility] g/dL [facility] Hematocrit 35.5 34.1 - 44.9 % [facility] MCV 88.3 79.4 - 94.8 [facility] FL [facility] MCH 28.6 25.6 - 32.2 [facility] PG [facility] MCHC 32.4 32.2 - 35.5 [facility] g/dL [facility] Platelet Count 136 (L) 182 - 369 [facility] K/uL [facility] MPV 12.4 (H) 9.4 - 12.3 FL [facility] RDW 13.7 11.7 - 14.4 % [facility] Specimen Blood - Blood specimen (specimen) Performing Organization Address [facility] Cent[facility] Phone Number [facility] [address] [place] [address] GLUCOSE (POCT) (12/26/2019 9:26 PM EST) Glucose POCT 231 (H) 70 - 99 mg/dl POINT OF CARE Result Comment: TESTING Performed at: [facility] POCT Rodo Garza MD, Laboratory Customer Service Driver [address] [place] [id number] Specimen Performing Organization Address City/State/[facility] Cent[facility]ode Phone Number POINT OF CARE TESTING GLUCOSE (POCT) (12/26/2019 5:21 PM EST) Glucose POCT 290 (H) 70 - 99 mg/dl POINT OF CARE Result Comment: TESTING Performed at: [facility] POCT Rodo Garza MD, Laboratory Customer Service Driver [address] [place] [id number] Specimen Performing Organization Address City/[facility] Phone Number POINT OF CARE TESTING GLUCOSE (POCT) (12/26/2019 12:11 PM EST) Glucose POCT 229 (H) 70 - 99 mg/dl POINT OF CARE Result Comment: TESTING Performed at: [facility] POCT Rodo Garza MD, Laboratory Customer Service Driver [address] [place] [id number] Specimen Performing Organization Address City/[facility] Phone Number POINT OF CARE TESTING GLUCOSE (POCT) (12/26/2019 12:17 AM EST) Glucose POCT 254 (H) 70 - 99 mg/dl POINT OF CARE Result Comment: TESTING Performed at: [facility] POCT Rodo Garza MD, Laboratory Customer Service Driver [address] [place] [id number] Specimen Performing Organization Address City/[facility] Cent[facility] Phone Number POINT OF CARE TESTING INFLUENZA A&B ASSAY (12/25/2019 8:17 PM EST) Influenza A PCR Positive (AA) Negative [facility] Influenza B PCR Negative Negative [facility] Specimen Nose - Nasopharyngeal swab (specimen) Performing Organization Address City/[facility] Cent[facility]ode Phone Number [place] [facility] [address] [place] [address] XR CHEST 1 VIEW (12/25/2019 8:03 PM EST) Specimen Impressions Performed At No acute cardiopulmonary findings. Signed by Nadir Lynn on 12/25/2019 8:06 PM Narrative Performed At Procedure(s): XR CHEST 1 VIEW Date of service: 12/25/2019 7:54 PM Provided clinical information: 54 years, Female, "CHEST PAIN, SOB" Procedure and materials: Standard protocol. Comparison studies: 10/25/2019 Observations: The lungs are clear. There is no pneumothorax or effusion. The cardiomediastinal silhouette is normal. There is no acute osseous abnormality. Procedure Note Interface, Rad Results - 12/25/2019 8:08 PM EST Procedure(s): XR CHEST 1 VIEW Date of service: 12/25/2019 7:54 PM Provided clinical information: 54 years, Female, "CHEST PAIN, SOB" Procedure and materials: Standard protocol. Comparison studies: 10/25/2019 Observations: The lungs are clear. There is no pneumothorax or effusion. The cardiomediastinal silhouette is normal. There is no acute osseous abnormality. IMPRESSION No acute cardiopulmonary findings. Signed by Nadir Lynn on 12/25/2019 8:[address] ABDOMEN PELVIS WITH IV CONTRAST (12/25/2019 7:18 PM EST) Specimen Impressions Performed At No evidence of diverticulitis. Severe proximal constipation pattern, and constipation throughout Urgency: Routine. This is a routine medical imaging report. Recommendation: No specific imaging recommendation. Signed by Laureen Evans MD on 12/25/2019 7:43 PM Narrative Performed At Procedure(s): CT ABDOMEN PELVIS WITH IV CONTRAST Date of service: 12/25/2019 7:13 PM Provided clinical information: 54 years, Female, "LLQ pain, suspect diverticulitis" Procedure and materials: Standard protocol. Contrast: 82 mL Omnipaque Comparison studies: November 26, 2019 Observations: CT ABDOMEN: Lung bases clear. Again seen is fatty liver, mild hepatomegaly, post cholecystectomy. Spleen, adrenals, pancreas unremarkable. Again seen are renal cysts. Small bowel normal caliber. Feces distended cecum on long mesentery, large amount of fecal material in the ascending colon, transverse colon. Moderate amount of fecal material throughout the remainder of the colon A few scattered colonic diverticuli with no evidence of diverticulitis. Mild atherosclerosis. CT PELVIS: Distended bladder. Again seen is post hysterectomy. Procedure Note Interface, Rad Results - 12/25/2019 7:45 PM EST Procedure(s): CT ABDOMEN PELVIS WITH IV CONTRAST Date of service: 12/25/2019 7:13 PM Provided clinical information: 54 years, Female, "LLQ pain, suspect diverticulitis" Procedure and materials: Standard protocol. Contrast: 82 mL Omnipaque Comparison studies: November 26, 2019 Observations: CT ABDOMEN: Lung bases clear. Again seen is fatty liver, mild hepatomegaly, post cholecystectomy. Spleen, adrenals, pancreas unremarkable. Again seen are renal cysts. Small bowel normal caliber. Feces distended cecum on long mesentery, large amount of fecal material in the ascending colon, transverse colon. Moderate amount of fecal material throughout the remainder of the colon A few scattered colonic diverticuli with no evidence of diverticulitis. Mild atherosclerosis. CT PELVIS: Distended bladder. Again seen is post hysterectomy. IMPRESSION No evidence of diverticulitis. Severe proximal constipation pattern, and constipation throughout Urgency: Routine. This is a routine medical imaging report. Recommendation: No specific imaging recommendation. Signed by Laureen Evans MD on 12/25/2019 7:43 PM URINALYSIS (LAB) WITH REFLEX CULTURE (12/25/2019 6:03 PM EST) Urine Color Yellow Yellow [facility] Urine Appearance Clear Clear [facility] Urine Glucose 100 (A) Negative mg/dl [facility] Urine Bilirubin Negative Negative [facility] Urine Ketones Negative Negative [facility] Urine Specific 1.015 1.005 - 1.030 [facility] [place] [facility] Urine Blood Negative Negative [facility] Urine Ph 5.5 5.0 - 8.0 [facility] Urine Protein Negative Negative mg/dl [facility] Urine Urobilinogen 0.2 0.2 - 1.0 E.U./DL [facility] Urine Nitrite Negative Negative [facility] Urine Leukocytes Negative Negative [facility] Specimen Urine - Urine specimen obtained by clean catch procedure (specimen) Performing Organization Address [facility] Cent[facility]ode Phone Number [facility] [address] [place] [place] [address] PLATELET CHECK / REVIEW (12/25/2019 5:48 PM EST) Specimen Blood - Blood specimen (specimen) Performing Organization Address [facility] Cent[facility]ode Phone Number [facility] [address] [place] [address] [phone] TROPONIN (12/25/2019 5:48 PM EST) Troponin <0.012 0.000 - 0.034 [facility] Comment: ng/ml GROUP LAB[facility] Negative less than or equal to 0.034 ng/ml Indeterminate 0.0351 - 0.119 ng/ml (Suggest Repeat in 4 Hours) Critical (AMI Cutoff) greater than or equal to 0.120 ng/ml Specimen Blood - Blood specimen (specimen) Performing Organization Address City/State/Zipcode Phone Number [facility] [address] [place] [address] COMPREHENSIVE METABOLIC PANEL (12/25/2019 5:48 PM EST) Sodium 132 (L) 134 - 145 mmol/L [facility] Potassium 3.5 3.5 - 5.1 mmol/L [facility] Chloride 101 98 - 107 mmol/L [facility] CO2 22 22 - 30 mmol/L [facility] Calcium 8.6 8.3 - 10.1 mg/dl [facility] Albumin 3.7 3.5 - 5.0 g/dl [facility] BUN 26 (H) 7 - 17 mg/dl [facility] Creatinine 0.5 (L) 0.7 - 1.2 mg/dl [facility] Glucose 112 (H) 70 - 99 mg/dl [facility] Total Protein 6.8 6.3 - 8.2 g/dl [facility] Total Bilirubin 0.2 0.0 - 1.1 MG/DL [facility] AST 26 15 - 46 U/L [facility] ALT 27 9 - 52 U/L [facility] Alkaline 107 40 - 150 U/L [facility] LABOR[facility]ORY eGFR >60 See Interpretation [facility] Comment: Below ml/min/1.73ml GROUP Estimated GFR Interpretation: LABORATORY Above 60ml/min/1.73m2 = Normal Renal Function 30-59 ml/min/1.73m2 = Stage 3 Chronic Kidney Disease 15-29 ml/min/1.73m2 = Stage 4 Chronic Kidney Disease Less than 15 ml/min/1.73m2 = Stage 5 Chronic Kidney Disease The GFR value is calculated using the Modification of Diet in Renal Disease ( MDRD) Study Equation which can be found at: https://www.kidney.org/content/qoua-grrfn-hzkpiene BUN/Creatinine 52 (H) 6 - 22 RATIO [facility] LABORATORY Anion Gap 9 3 - 11 mmol/L [facility] A/G Ratio 1.2 0.8 - 2.0 ratio [facility] Specimen Blood - Blood specimen (specimen) Performing Organization Address City/State/Zipcode Phone Number [facility] [address] [facility] [place] [address] CBC WITH DIFFERENTIAL (12/25/2019 5:48 PM EST) WBC Count 5.76 3.98 - 10.04 K/uL [facility] RBC Count 4.40 3.93 - 5.22 M/UL [facility] Hemoglobin 12.6 11.2 - 15.7 g/dL [facility] Hematocrit 38.0 34.1 - 44.9 % [facility] MCV 86.4 79.4 - 94.8 FL [facility] MCH 28.6 25.6 - 32.2 PG [facility] MCHC 33.2 32.2 - 35.5 g/dL [facility] Platelet Count 134 (L) 182 - 369 K/uL [facility] MPV 11.5 9.4 - 12.3 FL [facility] RDW 12.6 11.7 - 14.4 % [facility] Neutrophil % 72.1 (H) 34.0 - 71.1 % [facility] Lymphocyte % 19.4 19.3 - 51.7 % [facility] Monocyte % 5.6 4.7 - 12.5 % [facility] Eosinophil % 1.0 0.7 - 5.8 % [facility] Basophil % 0.7 0.1 - 1.2 % [facility] nRBC % 0.0 0.0 - 0.2 % [facility] Neutrophil # 4.15 1.56 - 6.13 K/UL [facility] Lymphocyte # 1.12 (L) 1.18 - 3.74 K/UL [facility] Monocyte # 0.32 0.24 - 0.86 K/UL [facility] Eosinophil # 0.06 0.04 - 0.36 K/UL [facility] Basophil # 0.04 0.01 - 0.08 K/UL [facility] Immature Gran % 1.2 (H) 0.0 - 0.4 % [facility] Immature Gran # 0.07 (H) 0.00 - 0.03 K/uL [facility] NRBC # 0.00 0.00 - 0.12 K/uL [facility] Specimen Blood - Blood specimen (specimen) Performing Organization Address City/[facility]/Zipcode Phone Number [facility] [address] [place] [address] [phone] LACTIC ACID (LAB) (12/25/2019 5:48 PM EST) Lactic Acid 1.3 0.7 - 2.1 MMOL/L [facility] Specimen Blood - Blood specimen (specimen) Performing Organization Address City/[facility]/Zipcode Phone Number [facility] [address] [place] [address] IN PT/ED 12 LEAD EKG (12/25/2019 5:39 PM EST) Ventricular Rate 110 BPM CARDIOLOGY DEPARTMENT Atrial rate 110 BPM CARDIOLOGY DEPARTMENT P-R Interval 136 ms CARDIOLOGY DEPARTMENT QRS Duration 84 ms CARDIOLOGY DEPARTMENT Q-T Interval 346 ms CARDIOLOGY DEPARTMENT QTC Calculation 468 ms CARDIOLOGY (Bezet) DEPARTMENT P Toney 51 degrees CARDIOLOGY DEPARTMENT R Toney 22 degrees CARDIOLOGY DEPARTMENT T Toney 15 degrees CARDIOLOGY DEPARTMENT Diagnosis Line Sinus tachycardia CARDIOLOGY Possible Inferior infarct , age undetermined DEPARTMENT Abnormal ECG When compared with ECG of 27-JUN-2018 14:57, Borderline criteria for Inferior infarct are now Present Confirmed by VONDA ACUÑA ([id number]) ([id number]) on 12/27/2019 2:56:51 PM Specimen Narrative Performed At Performing Organization Address City/[facility] Cent[facility]ode Phone Number CARDIOLOGY DEPARTMENT documented in this encounter Visit Diagnoses Diagnosis Influenza B Influenza with other respiratory manifestations Other chest pain Influenza A Influenza with other respiratory manifestations Essential hypertension Unspecified essential hypertension Type 2 diabetes mellitus with diabetic polyneuropathy, with long-term current use of insulin (HCC) Nondependent tobacco use disorder Tobacco use disorder documented in this encounter Administered Medications Medication Order MAR Action Action Date Dose Rate Site acetaminophen (TYLENOL) tablet 650 mg 650 mg, Oral, Q4 HRS PRN, Starting Wed12/25/19 at 2149, Until Wed12/29/19 at 1427, Temp > 101 - 1st line albuterol-ipratropium (DUO-NEB) nebulizer unit dose (RT ADMIN) 0.5-2.5 (3) MG/ 3ML 3 mg, Inhalation-SVN, Q4 HRS PRN, Starting Wed12/25/19 at 2318, Until Wed at 1427, PER RT FREQUENCY, Ordering this RT Admin Medication will automatically order the patient to be placed on the Respiratory Therapy Patient Driven Protocol RT may increase the frequency of administration to q2h, as needed, if symtoms are not controlled at current ordered frequency. If administer three times consecutively without improvement, call provider., atorvastatin (LIPITOR) tablet 20 mg Given 12/29/2019 8:26 AM EST 20 mg 20 mg, Oral, DAILY, First dose on Wed12/26/19 at 0900, Until Discontinued Given 12/28/2019 8:37 AM EST 20 mg Given 12/27/2019 8:21 AM EST 20 mg benzocaine-menthol (CEPACOL) lozenge 1 Lozenge 1 Lozenge, Oral, Q2 HRS PRN, Starting Wed12/28/19 at 1543, Until Wed12/29/19 at 1427, Sore throat - 1st line bethanechol (URECHOLINE, DUVOID) tablet 25 mg Given 12/29/2019 8:26 AM EST 25 mg 25 mg, Oral, QID, First dose on Wed12/25/19 at 2145, Until Discontinued Given 12/28/2019 8:45 PM EST 25 mg Given 12/28/2019 5:09 PM EST 25 mg budesonide (RHINOCORT AQ) nasal spray 1 Given 12/29/2019 8:26 AM EST 1 [place], Nasal, DAILY, 5 doses, First dose on Wed12/28/19 at 1550, Last dose on Wed01/01/20 at 0900 Given 12/28/2019 5:09 PM EST 1 [place] buprenorphine hcl (SUBUTEX) subligual tablet Given 12/29/2019 8:23 AM EST 24 mg 24 mg 24 mg, Sublingual, DAILY, 6 doses, First dose (after last modification) on Wed12/27/19 at 0900, Last dose on Wed01/01/20 at 0900 Given 12/28/2019 8:43 AM EST 24 mg Given 12/27/2019 8:58 AM EST 24 mg buprenorphine hcl (SUBUTEX) subligual tablet 8 Given 12/26/2019 2:40 PM EST 8 mg mg 8 mg, Sublingual, DAILY, 7 doses, First dose on Wed12/26/19 at 1400, Last dose on Wed01/01/20 at 0900 cloNIDine (CATAPRES) tablet (1/2X0.1 mg) Given 12/29/2019 8:26 AM EST 0.05 mg 0.05 mg 0.05 mg, Oral, BID, First dose on Wed12/25/19 at 2145, Until Discontinued Given 12/28/2019 8:45 PM EST 0.05 mg Given 12/28/2019 8:48 AM EST 0.05 mg dextromethorphan-guaifenesin (ROBITUSSIN DM) Given 12/26/2019 8:45 AM EST 5 mL oral syrup 10-100 MG/5ML 5 mL, Oral, Q4 HRS PRN, Starting Wed12/25/19 at 2143, Until Wed12/26/19 at 1016, Congestion - 1st line dextromethorphan-guaifenesin (ROBITUSSIN DM) Given 12/29/2019 9:27 AM EST 10 mL oral syrup 10-100 MG/5ML 10 mL, Oral, Q4 HRS, First dose (after last modification) on Wed12/26/19 at 1250, Until Discontinued Given 12/29/2019 5:43 AM EST 10 mL Given 12/29/2019 12:08 AM EST 10 mL dextrose injection 50 % 25 g, Intravenous, PRN, Starting Wed12/25/19 at 2142, Until Wed12/29/19 at 1427 , blood glucose < ___, <70 and patient NPO or not alert fluoxetine (PROZAC) capsule 40 mg Given 12/29/2019 8:25 AM EST 40 mg 40 mg, Oral, DAILY, First dose on Wed12/26/19 at 0900, Until Discontinued Given 12/28/2019 8:37 AM EST 40 mg Given 12/27/2019 8:20 AM EST 40 mg gabapentin (NEURONTIN) capsule 600 mg Given 12/29/2019 8:26 AM EST 600 mg 600 mg, Oral, TID, First dose on Wed12/25/19 at 2145, Until Discontinued Given 12/28/2019 8:45 PM EST 600 mg Given 12/28/2019 4:20 PM EST 600 mg GLARGINE insulin Given 12/28/2019 9:08 PM EST 40 Units Arm - Upper Left (LONG-Acting) injection 40 Units 40 Units, Subcutaneous, QAM AND EVENING, First dose on Wed12/25/19 at 2145, Until Discontinued Given 12/27/2019 10:02 PM EST 40 Units Arm - Upper Left Given 12/27/2019 8:26 AM EST 40 Units Abdominal Tissue glucose (GLUTOSE) oral gel 40 % 1-2 Tube, Oral, PRN, Starting Wed12/25/19 at 2142, Until Wed12/29/19 at 1427, blood glucose < ___, Administer for Blood Glucose < 50 and patient eating and alert per hypoglycemia protocol, 15 g dextrose per tube, heparin injection 5000 Given 12/29/2019 8:13 AM 5,000 Units Abdominal Tissue UNIT/ML EST 5,000 Units, Subcutaneous, Q8H (Heparin), 45 doses, First dose on Wed12/25/19 at 2200, Last dose on Wed01/09/20 at 1400 Given 12/28/2019 10:57 PM EST 5,000 Units Quad Abdomen- Lower Left Given 12/28/2019 4:23 PM EST 5,000 Units Abdominal Tissue HOLD MEDICATION Given 12/26/2019 4:00 PM EST Does not apply, AC, First dose on Wed12/26/19 at 0700, Until Discontinued, Hold meal time rapid/short acting insulin if patient does not eat., hydrocortisone (ANUSOL HC) suppository 25 mg 25 mg, Rectal, DAILY PRN, Starting Wed12/27/19 at 1738, Until Wed12/29/19 at 1427, rectal pain iohexol (OMNIPAQUE) 350 MG/ML injectable Push 12/25/2019 7:15 PM EST 82 mL solution 82 mL 82 mL, Intravenous, NOW, 1 dose, Wed12/25/19 at 1915 ketorolac (TORADOL) injection 15 mg Given 12/25/2019 6:03 PM EST 15 mg 15 mg, Intravenous Push, X1, 1 dose, First dose on Wed12/25/19 at 1855 lactated ringers IV 1,000 mL New Bag 12/26/2019 12:22 AM EST 1,000 mL 1,000 mL, Intravenous, BOLUS, 1 dose, Wed12/25/19 at 2215 lactated ringers IV New Bag 12/28/2019 5:28 AM EST 100 mL/hr Intravenous, at 100 mL/hr, CONTINUOUS, Starting Wed12/25/19 at 2245, Until Wed12/28/19 at 1544 New Bag 12/27/2019 8:07 PM EST 100 mL/hr New Bag 12/27/2019 10:01 AM EST 100 mL/hr LISPRO insulin (RAPID-Acting) Given 12/28/2019 8:45 PM 10 Units Arm - Upper Left USUAL Correction Scale Inj EST Subcutaneous, AC/HS, First dose on Wed12/26/19 at 0700, Until Discontinued, Blood Glucose USUAL <=150 0 Units 151-200 2 Units 201-250 4 Units 251-300 6 Units 301-350 8 Units 351-400 10 Units >400 12 Units And Call [employer] Operator Not for IV USE, Given 12/28/2019 4:21 PM EST 4 Units Abdominal Tissue Given 12/27/2019 10:12 PM EST 4 Units Arm - Upper Left MOXIfloxacin (AVELOX) IV premix 400 mg New 12/28/2019 8:45 PM EST 400 mg 400 mg, Intravenous, Q24 HRS, 5 doses, First dose on Wed12/28/19 at 1820, Last dose on Wed01/01/20 at 1820 nicotine transdermal Patch applied 12/29/2019 8:25 AM 1 Patch Arm - Upper Left patch-daily (NICODERM) EST topical 21 mg/24 hr 1 Patch 1 Patch (21 mg), Transdermal, DAILY, First dose on Wed12/26/19 at 0900, Until Discontinued, Apply one patch in the morning on hairless skin on upper body. Rotate sites. Remove prior to MRI to avoid russo. Please make sure to remove previous patch from site., Patch applied 12/28/2019 8:38 AM EST 1 Patch Arm - Upper Right Patch applied 12/27/2019 8:28 AM EST 1 Patch Arm - Upper Left normal saline bolus 1,000 mL New Bag 12/25/2019 6:03 PM EST 1,000 mL 1,000 mL, Intravenous, BOLUS, 1 dose, Wed12/25/19 at 1850 normal saline bolus 1,000 mL New Bag 12/25/2019 8:18 PM EST 1,000 mL 1,000 mL, Intravenous, BOLUS, 1 dose, Wed12/25/19 at 2120 ondansetron (ZOFRAN) injection 4 mg 4 mg, Intravenous, Q8 HRS PRN, Starting Wed12/25/19 at 2130, Until Wed12/29/19 at 1427, Nausea/Vomiting - IV - 1st line - If immediate effect required or patient cannot tolerate PO oseltamivir (TAMIFLU) capsule 75 mg Given 12/29/2019 8:26 AM EST 75 mg 75 mg, Oral, BID, 10 doses, First dose on Wed12/25/19 at 2150, Last dose on Wed12/30/19 at 0900 Given 12/28/2019 9:08 PM EST 75 mg Given 12/28/2019 8:37 AM EST 75 mg pantoprazole (PROTONIX) enteric coated tablet Given 12/29/2019 5:40 AM EST 40 mg 40 mg 40 mg, Oral, PRE BREAKFAST, First dose on Wed12/26/19 at 0600, Until Discontinued, This medication dosage form should NOT be crushed. Please call the inpatient Pharmacy for more information. [facility] ext. [phone] [place] ext. [phone] [facility] ext. [phone] , Given 12/28/2019 5:27 AM EST 40 mg Given 12/27/2019 6:03 AM EST 40 mg polyethylene glycol (MIRALAX) oral pack 17 g Given 12/29/2019 8:26 AM EST 17 g 17 g, Oral, DAILY, First dose on Wed12/26/19 at 0900, Until Discontinued Given 12/28/2019 8:47 AM EST 17 g Given 12/27/2019 8:28 AM EST 17 g potassium chloride (K-DUR) controlled Given 12/27/2019 11:53 AM EST 40 mEq release tablet 40 mEq 40 mEq, Oral, X1, 1 dose, First dose on Wed12/27/19 at 1040, Per the Package Insert, if the patient [...] not recommended., potassium chloride (K-DUR) controlled Given 12/27/2019 10:02 PM EST 40 mEq release tablet 40 mEq 40 mEq, Oral, X1, 1 dose, First dose on Wed12/27/19 at 1840, Per the Package Insert, if the patient [...] for suspending K-Dur tablets is not recommended., predniSONE (DELTASONE) tablet 40 mg Given 12/28/2019 8:36 AM EST 40 mg 40 mg, Oral, DAILY, 3 doses, First dose on Wed12/26/19 at 0900, Last dose on Wed12/28/19 at 0900, Take with food., Given 12/27/2019 8:58 AM EST 40 mg Given 12/26/2019 8:46 AM EST 40 mg Quetiapine Fumarate (SEROQUEL) tablet 50 mg Given 12/28/2019 8:45 PM EST 50 mg 50 mg, Oral, QHS, First dose on Wed12/25/19 at 2145, Until Discontinued Given 12/27/2019 10:02 PM EST 50 mg Given 12/26/2019 9:33 PM EST 50 mg sucralfate (CARAFATE) tablet 1,000 mg Given 12/29/2019 11:17 AM EST 1,000 mg 1,000 mg, Oral, AC/HS, First dose on Wed12/26/19 at 0700, Until Discontinued, Do not administer through "tubes" (Gastrostomy (PEG/G-tube), Orogastric (OG), Jejunal (J-tube), Nasogastric (NG)), Given 12/29/2019 8:25 AM EST 1,000 mg Given 12/28/2019 8:45 PM EST 1,000 mg documented in this encounter Additional Health Concerns Infection Noted Time Resolved Time Influenza 12/25/2019 9:00 PM EST documented as of this encounter Guarantor Name Account Type Relation to Date of Phone Billing Patient Address Evie Simpson Personal/Family 1965 [address] [facility] (Home) [facility] [phone] [place], [place] (Work) [id number] documented as of this encounter Advance Directives Code Status Date Activated Date Inactivated Comments Full Code 12/25/2019 9:50 PM Does the patient have decision making [...]
[2020-02-16] MEDS ORDERED: Buprenorp/Nalox 8-2 MG FILM SL FILM ONE (14:03)
[2020-02-16] MEDS ORDERED: Lidocaine PATCH 5%* 1 PATCH TRANSDERM ONE (14:03)
--- NOTE | 2020-02-16 14:10 | ED ---
HPI Chest Pain - HPI Summary HPI Summary: This pt is a 54 Y/O F presenting to [facility] with a CC of a fall that occurred while she was sleeping on her couch this date at 0900 and is rated a 3/10 in severity. She states that she has SOB. When she hit the ground she states that she heard a crack. The pain is located R laterally and is pinpoint on her rib. She states that her R arm hurts as well but states that her ribs hurt the most. Pt denies any fever, chills, erythema of eyes, sore throat, cough, abdominal pain, N/V, dysuria, hematuria, myalgia, edema, rash, or dizziness. She has no alleviating factors. She states that deep breaths and movements increase her pain. She has a PMHx of COPD. She states that she smokes occasionally. - History of Current Complaint Chief Complaint: EDFall Time Seen by Provider: 02/16/20 13:43 Hx Obtained From: Patient Onset/Duration: Started Hours Ago - 5, Still Present Time of Onset: 09:00 Timing: Constant, Lasting Hours - 5 Initial Severity: Severe Current Severity: Severe Pain Intensity: 9 Pain Scale Used: 0-10 Numeric Chest Pain Location: Right Lateral Chest Pain Radiates: No Aggravating Factor(s): Deep Breaths Alleviating Factor(s): Nothing Associated Signs and Symptoms: Positive: Negative - erythema of eyes, sore throat, dysuria, hematuria, myalgia, edema, rash, or dizziness, Chest Pain, Shortness of Breath, Other: - R arm pain. Negative: Dizziness, Fever, Chills, Nausea, Cough, Abdominal Pain, Vomiting - Additional Pertinent History Primary Care Physician: BELINDA - Allergy/Home Medications Allergies/Adverse Reactions: Allergies Allergy/AdvReac Type Severity Reaction Status Date / Time metoclopramide Allergy Unknown Unknown Verified 02/16/20 12:31 Reaction Details Sulfa (Sulfonamide Allergy Unknown Hives Verified 02/16/20 12:31 Antibiotics) Penicillins AdvReac Unknown Altered Verified 02/16/20 12:31 Mental Status Home Medications: Home Medications Gabapentin TAB(NF) [Neurontin 600 mg TAB(NF)] 600 mg PO TID 04/09/17 [History Confirmed 02/16/20] Cyclobenzaprine TAB* [Flexeril 10 MG TAB*] 5 mg PO TID PRN 10/15/18 [History Confirmed 02/16/20] Promethazine 25 mg TAB [Phenergan 25 mg TAB] 25 mg PO Q8H PRN 10/15/18 [History Confirmed 02/16/20] QUEtiapine TAB* [Seroquel 25 MG TAB*] 25 mg PO BEDTIME 10/15/18 [History Confirmed 02/16/20] Amlodipine Besylate [Norvasc] 10 mg PO DAILY 10/07/19 [History Confirmed ] Atorvastatin* [Lipitor 20 MG*] 20 mg PO BEDTIME 10/07/19 [History Confirmed ] Bethanechol Chloride [Urecholine] 25 mg PO QID 10/07/19 [History Confirmed 02/15] Insulin Lispro [Admelog 100 units/ml 10 ml VIAL] 10 unit SQ TID WITH MEALS 10/07 [History Confirmed 02/16/20] Pantoprazole Packet (NF) [Protonix Packet (NF)] 40 mg PO DAILY 10/07/19 [ History Confirmed 02/16/20] Topiramate 50 mg PO BID 10/07/19 [History Confirmed 02/16/20] Buprenorp/Nalox 8-2 MG SL TAB [Suboxone 8-2 mg SL TAB*] 3 tab.sl SL DAILY [History Confirmed 02/16/20] Insulin Glargine,Hum.rec.anlog [Basaglar Kwikpen 100 inuts/ml 3 ml x 5 Pens] 50 units SUBCUT BID 02/16/20 [History Confirmed 02/16/20] Lisinopril TAB* [Prinivil TAB*] 10 mg PO DAILY 02/16/20 [History Confirmed 02/15] cloNIDine TAB* [Catapres 0.1 MG TAB*] 0.1 mg PO TID 02/16/20 [History Confirmed 02/16/20] PMH/Surg Hx/FS Hx/Imm Hx Previously Healthy: Yes Endocrine/Hematology History: Reports: Hx Diabetes Denies: Hx Anticoagulant Therapy, Hx Blood Disorders, Hx Blood Transfusions, Hx Bone Marrow Disease, Hx Systemic Lupus Erythematosus, Hx Sickle Cell Disease , Hx Thyroid Disease, Hx Anemia, Hx Unexplained Bleeding, Other Endocrine/ Hematological Disorders Cardiovascular History: Reports: 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, Hx Embolism, Hx Hypercholesterolemia, Hx Hypertension Denies: Hx Aneurysm, Hx Angina, Hx Angioplasty, Hx Auto Implanted Cardiovert Defib, Hx Cardiac Arrest, Hx Cardiomegaly, Hx Congenital Heart Disease, Hx Congestive Heart Failure, Hx Coronary Artery Disease, Hx Hypotension, Hx Pacemaker/ICD, Hx Peripheral Vascular Disease, Hx Rheumatic Fever, Hx Syncope, Hx Valvular Heart Disease, Other Cardiovascular Problems/Disorders Respiratory History: Reports: Hx Chronic Obstructive Pulmonary Disease (COPD), Hx Pulmonary Edema, Hx Seasonal Allergies Denies: Hx Asthma, Hx Bronchopulmonary Dysplasia, Hx Chronic Bronchitis, Hx Cystic Fibrosis, Hx Lung Cancer, Hx Pleural Effusion, Hx Pneumonia, Hx Pulmonary Embolism, Hx Sleep Apnea, Other Respiratory Problems/Disorders GI History: Reports: Hx Diverticulosis, Hx Gall Bladder Disease, Hx Gastroesophageal Reflux Disease, Hx Irritable Bowel, Hx Ulcer, Other GI Disorders - Gastroparesis Denies: Hx Cirrhosis, Hx Crohn's Disease, Hx Gastrointestinal Bleed, Hx Hiatal Hernia, Hx Jaundice, Hx Obstructive Bowel, Hx Ileostomy, Hx Pyloric Stenosis History: Denies: Hx Acute Renal Failure, Hx Benign Prostatic Hyperplasia, Hx Chronic Renal Failure, Hx Dialysis, Hx Kidney Infection, Hx Kidney Stones, Hx Renal Disease, Other Problems/Disorders Musculoskeletal History: Reports: Hx Arthritis, Hx Back Problems, Other Musculoskeletal History - sciatica Denies: Hx Bursitis, Hx Congenital Bone Abnormalities, Hx Fibromyalgia, Hx Gout, Hx Orthopedic Injury, Hx Osteoporosis, Hx Scoliosis, Hx Tendonitis Sensory History: Reports: Hx Cataracts, Hx Contacts or Glasses - READING GLASSES Denies: Hx Eye Injury, Hx Eye Prosthesis, Hx Glaucoma, Hx Legally Blind, Hx Macular Degeneration, Hx Vision Problem, Hx Deafness, Hx Hearing Aid, Hx Hearing Problem, Other Sensory Impairments Opthamlomology History: Reports: Hx Cataracts, Hx Contacts or Glasses - READING GLASSES Denies: Hx Eye Injury, Hx Eye Prosthesis, Hx Glaucoma, Hx Legally Blind, Hx Macular Degeneration, Hx Vision Problem, Other Sensory Impairments Neurological History: Reports: Hx Migraine Denies: Hx Dementia, Hx Developmental Delay, Hx Headaches, Hx Nerve Disease, Hx Seizures, Hx Spinal Cord Injury, Hx Transient Ischemic Attacks (TIA), Other Neuro Impairments/Disorders Psychiatric History: Reports: Hx Anxiety, Hx Depression Denies: Hx Attention Deficit Hyperactivity Disorder, Hx Autism, Hx Eating Disorder, Hx Oppositional Hubbard Disorder, Hx Panic Disorder, Hx Post Traumatic Stress Disorder, Hx Inpatient Treatment, Hx Community Mental Health Tx , Hx Schizophrenia, Hx Bipolar Disorder, Hx Suicide Attempt, Hx of Violent Episodes Against Others, Other Psychiatric Issues/Disorders - Cancer History Cancer Type, Location and Year: cervical Hx Hematologic Symptoms: No Hx Chemotherapy: No Hx Radiation Therapy: No Hx Palliative Cancer Treatment: No - Surgical History Surgical History: Yes Surgery Procedure, Year, and Place: cholecystectomy and right knee surgery Hx Anesthesia Reactions: No - Immunization History Immunizations Up to Date: Yes Infectious Disease History: No Infectious Disease History: Denies: Hx Clostridium Difficile, Hx Hepatitis, Hx Human Immunodeficiency Virus (HIV), Hx of Known/Suspected MRSA, Hx Shingles, Hx Tuberculosis, Hx Known/ Suspected VRE, Hx Known/Suspected VRSA, History Other Infectious Disease, Traveled Outside the [place] in Last 30 Days - Family History Known Family History: Positive: Hypertension - Social History Occupation: Unemployed Lives: With Family Alcohol Use: None Hx Substance Use: No Substance Use Type: Reports: None Hx Tobacco Use: Yes Smoking Status (MU): Light Every Day Tobacco Smoker Type: Cigarettes Amount Used/How Often: anywhere from 2 cigarettes to a pack a day Review of Systems Negative: Fever, Chills Negative: Erythema Negative: Sore Throat Positive: Chest Pain Positive: Shortness Of Breath. Negative: Cough Negative: Abdominal Pain, Vomiting, Nausea Negative: dysuria, hematuria Musculoskeletal: Other - R arm pain Negative: Myalgia, Edema Negative: Rash Neurological/Mental Status: Negative - dizziness All Other Systems Reviewed And Are Negative: Yes Physical Exam - Summary Physical Exam Summary: Constitutional: Well-developed, Well-nourished, Alert. (-) Distressed Skin: Warm, Dry HENT: Normocephalic; Atraumatic Eyes: Conjunctiva normal Neck: Musculoskeletal ROM normal neck. (-) JVD, (-) Stridor, (-) Tracheal deviation Cardio: Rhythm regular, rate normal, Heart sounds normal; Intact distal pulses; The pedal pulses are 2+ and symmetric. Radial pulses are 2+ and symmetric. (-) Murmur Pulmonary/Chest wall: Effort normal. (-) Respiratory distress, (-) Wheezes, (-) Rales, Tenderness over the R lateral and anterior 5th and 6th rib. Abd: Soft, (-) tenderness, (-) Distension, (-) Guarding, (-) Rebound Musculoskeletal: (-) Edema Lymph: (-) Cervical adenopathy Neuro: Alert, Oriented x3 Psych: Mood and affect Normal Triage Information Reviewed: Yes Vital Signs On Initial Exam: Initial Vitals Temp Pulse Resp BP Pulse Ox 97.7 F 139 17 141/100 98 02/16/20 12:30 02/16/20 12:30 02/16/20 12:30 02/16/20 12:30 02/16/20 12:30 Vital Signs Reviewed: Yes Procedures - Sedation Patient Received Moderate/Deep Sedation with Procedure: No Diagnostics - Vital Signs Vital Signs Temp Pulse Resp BP Pulse Ox 02/16/20 12:30 97.7 F 139 17 141/100 98 - Laboratory Lab Statement: Any lab studies that have been ordered have been reviewed, and results considered in the medical decision making process. - Radiology Ribs W/CXR Radiology Interpretation Completed By: Radiologist Summary of Radiographic Findings: NO DISPLACED RIB FRACTURE OR PNEUMOTHORAX. ED physician has reviewed this report. Chest Pain Course/Dx - Course Course Of Treatment: This pt is a 54 Y/O F presenting to [facility] with a CC of a fall that occurred while she was sleeping on her couch this date at 0900 and is rated a 3/10 in severity. She states that she has SOB. When she hit the ground she states that she heard a crack. The pain is located R laterally and is pinpoint on her rib. She states that her R arm hurts as well but states that her ribs hurt the most. Her PE found Tenderness over the R lateral and anterior 5th and 6th rib. Her Rib W/CXR test shows NO DISPLACED RIB FRACTURE OR PNEUMOTHORAX. She will be discharged home with a Dx R rib contusion. - Diagnoses Provider Diagnoses: Contusion of rib on right side Discharge ED - Sign-Out/Discharge Documenting (check all that apply): Patient Departure - discharge - Discharge Plan Condition: Good Disposition: HOME Patient Education Materials: Rib Contusion (ED) Referrals: Armen Goodman MD [Primary Care Provider] - 2 Days Additional Instructions: PLEASE FOLLOW UP WITH YOUR PRIMARY CARE PROVIDER IN 1-3 DAYS AND RETURN TO THE EMERGENCY DEPARTMENT FOR ANY NEW OR WORSENING SYMPTOMS. - Attestation Statements Document Initiated by Scribe: Yes Documenting Scribe: Martin Lantigua Provider For Whom Scribe is Documenting (Include Credential): Drake Woods MD Scribe Attestation: Martin Car, scribed for Drake Woods MD on 02/16/20 at 1451. Status of Scribe Document: Ready
[2020-02-16 15:23] VITALS: BP 120/82
[2020-02-16] MEDS ORDERED: Lidocaine Patch REMOVE* 1 NOTE MISC SCH (21:00)
== END 2020-02-16 15:21 | disposition home or self-care (01) ==
LOC: ED 12:28
DX: S20.211A Contusion of right front wall of thorax, initial encounter (principal); R06.02 Shortness of breath; Z88.2 Allergy status to sulfonamides; Z88.0 Allergy status to penicillin; E11.9 Type 2 diabetes mellitus without complications; Z79.4 Long term (current) use of insulin; Z86.718 Personal history of other venous thrombosis and embolism; J44.9 Chronic obstructive pulmonary disease, unspecified; F41.9 Anxiety disorder, unspecified; F32.9 Major depressive disorder, single episode, unspecified; Z85.41 Personal history of malignant neoplasm of cervix uteri; F17.210 Nicotine dependence, cigarettes, uncomplicated; W08.XXXA Fall from other furniture, initial encounter; Y92.9 Unspecified place or not applicable
CPT/HCPCS: 99283; A9270-GY

== ENCOUNTER 2020-02-22 19:25 | Inpatient (IN) | payer OTHER ==
[2020-02-22] MEDS ORDERED: oxyCODONE/Acetamin 5/325 MG* TAB PO ONE (19:43)
--- NOTE | 2020-02-22 19:45 | ED ---
Adult Trauma - HPI Summary HPI Summary: 54 year old female presents to the ED with a chief complaint of right sided chest wall pain secondary to falling last week. Patient fell from her sofa when she was sleeping. Her pain has worsened gradually over the past several days and is now severe. She has noted increased heart rate and painful respirations. Patient denies swelling or pain in extremities. Per patient, she has had a history of PE, COPD, and DM. Patient smokes tobacco. - History of Current Complaint Chief Complaint: EDChestWallPain Stated Complaint: RIB PAIN PER PT Time Seen by Provider: 02/22/20 19:37 Hx Obtained From: Patient ?: No Mechanism of Injury: Fall - From sofa Ambulatory at the Scene: Yes Loss of Consciousness: no loss of consciousness - Was sleeping Onset/Duration: Started Weeks Ago, Still Present Onset of Pain: Immediate - Gradually worse Onset Severity: Moderate Current Severity: Severe Pain Intensity: 10 Pain Scale Used: 0-10 Numeric Location: Chest - right lateral chest wall Character: Aching Aggravating Factor(s): Deep Breaths, Palpation Associated Signs & Symptoms: Positive: Chest Pain, Painful Respirations - Additional Pertinent History Primary Care Physician: BELINDA - Allergy/Home Medications Allergies/Adverse Reactions: Allergies Allergy/AdvReac Type Severity Reaction Status Date / Time metoclopramide Allergy Unknown Unknown Verified 02/16/20 12:31 Reaction Details Sulfa (Sulfonamide Allergy Unknown Hives Verified 02/16/20 12:31 Antibiotics) Penicillins AdvReac Unknown Altered Verified 02/16/20 12:31 Mental Status Home Medications: Home Medications Gabapentin TAB(NF) [Neurontin 600 mg TAB(NF)] 600 mg PO TID 04/09/17 [History Confirmed 02/22/20] Cyclobenzaprine TAB* [Flexeril 10 MG TAB*] 5 mg PO TID PRN 10/15/18 [History Confirmed 02/22/20] Promethazine 25 mg TAB [Phenergan 25 mg TAB] 25 mg PO Q8H PRN 10/15/18 [History Confirmed 02/22/20] QUEtiapine TAB* [Seroquel 25 MG TAB*] 25 mg PO BEDTIME 10/15/18 [History Confirmed 02/22/20] Amlodipine Besylate [Norvasc] 10 mg PO DAILY 10/07/19 [History Confirmed ] Atorvastatin* [Lipitor 20 MG*] 20 mg PO BEDTIME 10/07/19 [History Confirmed ] Bethanechol Chloride [Urecholine] 25 mg PO QID 10/07/19 [History Confirmed 02/21] Insulin Lispro [Admelog 100 units/ml 10 ml VIAL] 10 unit SQ TID WITH MEALS 10/07 [History Confirmed 02/22/20] Pantoprazole Packet (NF) [Protonix Packet (NF)] 40 mg PO DAILY 10/07/19 [ History Confirmed 02/22/20] Topiramate 50 mg PO BID 10/07/19 [History Confirmed 02/22/20] Buprenorp/Nalox 8-2 MG SL TAB [Suboxone 8-2 mg SL TAB*] 3 tab.sl SL DAILY [History Confirmed 02/22/20] HYDROcodone/ACETAMIN 5-325 MG* [[place] 5-325 TAB*] 1 tab PO Q6H PRN #20 tab MDD 4 02/16/20 [Rx Confirmed 02/22/20] Insulin Glargine,Hum.rec.anlog [Basaglar Kwikpen 100 inuts/ml 3 ml x 5 Pens] 50 units SUBCUT BID 02/16/20 [History Confirmed 02/22/20] Lidocaine PATCH 5%* [Lidoderm 5% Patch*] 1 patch TRANSDERM DAILY #14 patch 02/15 [Rx Confirmed 02/22/20] Lisinopril TAB* [Prinivil TAB*] 10 mg PO DAILY 02/16/20 [History Confirmed 02/21] cloNIDine TAB* [Catapres 0.1 MG TAB*] 0.1 mg PO TID 02/16/20 [History Confirmed 02/22/20] PMH/Surg Hx/FS Hx/Imm Hx Endocrine/Hematology History: Reports: Hx Diabetes Denies: Hx Anticoagulant Therapy, Hx Blood Disorders, Hx Blood Transfusions, Hx Bone Marrow Disease, Hx Systemic Lupus Erythematosus, Hx Sickle Cell Disease , Hx Thyroid Disease, Hx Anemia, Hx Unexplained Bleeding, Other Endocrine/ Hematological Disorders Cardiovascular History: Reports: 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, Hx Embolism, Hx Hypercholesterolemia, Hx Hypertension Denies: Hx Aneurysm, Hx Angina, Hx Angioplasty, Hx Auto Implanted Cardiovert Defib, Hx Cardiac Arrest, Hx Cardiomegaly, Hx Congenital Heart Disease, Hx Congestive Heart Failure, Hx Coronary Artery Disease, Hx Hypotension, Hx Pacemaker/ICD, Hx Peripheral Vascular Disease, Hx Rheumatic Fever, Hx Syncope, Hx Valvular Heart Disease, Other Cardiovascular Problems/Disorders Respiratory History: Reports: Hx Chronic Obstructive Pulmonary Disease (COPD), Hx Pulmonary Edema, Hx Seasonal Allergies Denies: Hx Asthma, Hx Bronchopulmonary Dysplasia, Hx Chronic Bronchitis, Hx Cystic Fibrosis, Hx Lung Cancer, Hx Pleural Effusion, Hx Pneumonia, Hx Pulmonary Embolism, Hx Sleep Apnea, Other Respiratory Problems/Disorders GI History: Reports: Hx Diverticulosis, Hx Gall Bladder Disease, Hx Gastroesophageal Reflux Disease, Hx Irritable Bowel, Hx Ulcer, Other GI Disorders - Gastroparesis Denies: Hx Cirrhosis, Hx Crohn's Disease, Hx Gastrointestinal Bleed, Hx Hiatal Hernia, Hx Jaundice, Hx Obstructive Bowel, Hx Ileostomy, Hx Pyloric Stenosis History: Denies: Hx Acute Renal Failure, Hx Benign Prostatic Hyperplasia, Hx Chronic Renal Failure, Hx Dialysis, Hx Kidney Infection, Hx Kidney Stones, Hx Renal Disease, Other Problems/Disorders Musculoskeletal History: Reports: Hx Arthritis, Hx Back Problems, Other Musculoskeletal History - sciatica Denies: Hx Bursitis, Hx Congenital Bone Abnormalities, Hx Fibromyalgia, Hx Gout, Hx Orthopedic Injury, Hx Osteoporosis, Hx Scoliosis, Hx Tendonitis Sensory History: Reports: Hx Cataracts, Hx Contacts or Glasses - READING GLASSES Denies: Hx Eye Injury, Hx Eye Prosthesis, Hx Glaucoma, Hx Legally Blind, Hx Macular Degeneration, Hx Vision Problem, Hx Deafness, Hx Hearing Aid, Hx Hearing Problem, Other Sensory Impairments Opthamlomology History: Reports: Hx Cataracts, Hx Contacts or Glasses - READING GLASSES Denies: Hx Eye Injury, Hx Eye Prosthesis, Hx Glaucoma, Hx Legally Blind, Hx Macular Degeneration, Hx Vision Problem, Other Sensory Impairments Neurological History: Reports: Hx Migraine Denies: Hx Dementia, Hx Developmental Delay, Hx Headaches, Hx Nerve Disease, Hx Seizures, Hx Spinal Cord Injury, Hx Transient Ischemic Attacks (TIA), Other Neuro Impairments/Disorders Psychiatric History: Reports: Hx Anxiety, Hx Depression Denies: Hx Attention Deficit Hyperactivity Disorder, Hx Autism, Hx Eating Disorder, Hx Oppositional Deuel Disorder, Hx Panic Disorder, Hx Post Traumatic Stress Disorder, Hx Inpatient Treatment, Hx Community Mental Health Tx , Hx Schizophrenia, Hx Bipolar Disorder, Hx Suicide Attempt, Hx of Violent Episodes Against Others, Other Psychiatric Issues/Disorders - Cancer History Cancer Type, Location and Year: cervical Hx Hematologic Symptoms: No Hx Chemotherapy: No Hx Radiation Therapy: No Hx Palliative Cancer Treatment: No - Surgical History Surgery Procedure, Year, and Place: cholecystectomy and right knee surgery Hx Anesthesia Reactions: No Infectious Disease History: No Infectious Disease History: Denies: Hx Clostridium Difficile, Hx Hepatitis, Hx Human Immunodeficiency Virus (HIV), Hx of Known/Suspected MRSA, Hx Shingles, Hx Tuberculosis, Hx Known/ Suspected VRE, Hx Known/Suspected VRSA, History Other Infectious Disease, Traveled Outside the [place] in Last 30 Days - Family History Known Family History: Positive: Hypertension - Social History Alcohol Use: None Hx Substance Use: No Substance Use Type: Reports: None Hx Tobacco Use: Yes Smoking Status (MU): Light Every Day Tobacco Smoker Type: Cigarettes Amount Used/How Often: anywhere from 2 cigarettes to a pack a day Review of Systems Positive: Chest Pain Positive: Other - Painful respirations Positive: Myalgia - chest. Negative: Edema All Other Systems Reviewed And Are Negative: Yes Physical Exam - Summary Physical Exam Summary: Appearance: Well-appearing, Well-nourished, lying in bed comfortably Skin: Warm, dry, no obvious rash Eyes: sclera anicteric, no conjunctival pallor HENT: mucous membranes moist, pharynx appears normal Neck: Supple, nontender Respiratory: Clear to auscultation, no signs of respiratory distress Cardiovascular: Normal S1, S2. No murmurs. Normal distal pulses in tibial and radial bilaterally. Vital signs notable for tachycardia. Abdomen: Soft, nontender, normal active bowel sounds present Musculoskeletal: Normal, Strength/ROM Intact. Diffuse tenderness of right chest wall laterally. No swelling or bruising. Neurological: A&Ox3, awake and alert, mentation is normal, speech is fluent and appropriate Psychiatric: affect is normal, does not appear anxious or depressed Triage Information Reviewed: Yes Vital Signs On Initial Exam: Initial Vitals Temp Pulse Resp BP Pulse Ox 98.0 F 134 22 179/136 98 02/22/20 19:28 02/22/20 19:28 02/22/20 19:28 02/22/20 19:28 02/22/20 19:28 Vital Signs Reviewed: Yes Procedures - Sedation Patient Received Moderate/Deep Sedation with Procedure: No Diagnostics - Vital Signs Vital Signs Temp Pulse Resp BP Pulse Ox 02/22/20 19:28 98.0 F 134 22 179/136 98 - Laboratory Result Diagrams: 02/23/20 05:20 02/23/20 05:19 Lab Statement: Any lab studies that have been ordered have been reviewed, and results considered in the medical decision making process. - Radiology Chest XR with Ribs Radiology Interpretation Completed By: ED Physician Summary of Radiographic Findings: No rib fracture. Lungs appear normal. Dr. Sharpe reviewed and interpreted this XR. Pending official read. - CT Chest CTA CT Interpretation Completed By: Radiologist Summary of CT Findings: IMPRESSION: Acute pulmonary embolism involving one of the segmental and subsegmental branch of right lower lobe. Small ground-glass opacity measuring 2 mm and 5 mm in the right middle lobe and. lingula. For patients at low risk (minimal or absent history of smoking and of other known risk factors), no routine follow-up is indicated. For patients at high risk ( history of smoking or of other known risk factors), consider optional CT at 12 months. (Shell et al., Fleischner Society, 2017). An ED physician has reviewed this scan. - EKG 1946 Cardiac Rate: Tachycardia - 125 bpm EKG Rhythm: Sinus Tachycardia ST Segment: Normal Ectopy: None Summary of EKG Findings: Sinus tachycardia at 125 BPM, P waves, QRS complex, and T waves are within normal limits, T waves and intervals are normal, no ischemic changes. Dr. Golden Sharpe has reviewed and interpreted this EKG. Adult Trauma Course/Dx - Course Course Of Treatment: 54 year old female presents to the ED with a chief complaint of right sided chest wall pain secondary to falling last week. Patient fell from her sofa when she was sleeping. Her pain has worsened gradually over the past several days and is now severe. She has noted increased heart rate and painful respirations. Patient denies swelling or pain in extremities. Per patient, she has had a history of PE, COPD, and DM. Patient smokes tobacco. Sinus tachycardia at 125 BPM, P waves, QRS complex, and T waves are within normal limits, T waves and intervals are normal, no ischemic changes. Chest XR reveals no rib fracture. Lungs appear normal. Chest CTA shows an acute pulmonary embolism involving one of the segmental and subsegmental branch of right lower lobe. Small ground-glass opacity measuring 2 mm and 5 mm in the right middle lobe and. lingula. For patients at low risk ( minimal or absent history of smoking and of other known risk factors), no routine follow-up is indicated. For patients at high risk (history of smoking or of other known risk factors), consider optional CT at 12 months. (ravindra Goff al., Fleischner Society, 2017). Laboratory results show glucose 551, POC glucose 292, D-Dimer 254, sodium 130, chloride 96, BUN/Creatinine 27.5, AST 11, and alk phos 127. Diagnosis is pulmonary embolism. Patient will be admited as observation by Dr. Hurtado. Patient understands and agrees with this plan. - Diagnoses Provider Diagnoses: Pulmonary embolism - Physician Notifications Discussed Care Of Patient With: Benito Hurtado - Hospitalist Time Discussed With Above Provider: 22:45 Instructed by Provider To: Admit As Observation - Dr. Hurtado, hospitalist, accepts this patient for admission. Admit/Transition Orders Completed By ED Provider: Yes Discharge ED - Sign-Out/Discharge Documenting (check all that apply): Patient Departure - admit - Discharge Plan Condition: Stable Disposition: ADMITTED TO [facility] - Billing Disposition and Condition Condition: STABLE Disposition: Admitted to [facility] - Attestation Statements Document Initiated by Tracey: Yes Documenting Scribe: Naeem Grove Provider For Whom Tracey is Documenting (Include Credential): Dr. Golden Simpsonibmayuri Attestation: Naeem Car , scribed for Dr. Golden Sharpe on 02/26/20 at 1917. Scribe Documentation Reviewed: Yes Provider Attestation: The documentation as recorded by the Naeem phan accurately reflects the service I personally performed and the decisions made by me, Dr. Golden Sharpe Status of Scribe Document: Viewed
[2020-02-22 20:07] LABS: ABS Basophils 0.1 10^3/ul (0-0.2); ABS Eosinophils 0.1 10^3/ul (0-0.6); ABS Lymphocytes 2.6 10^3/ul (1.0-4.8); ABS Monocytes 0.4 10^3/ul (0-0.8); ABS Neutrophils 4.2 10^3/ul (1.5-7.7); Eosinophil % 1.3 %; Hematocrit 39 % (35-47); Hemoglobin 13.5 g/dL (12.0-16.0); Lymphocyte % 35.7 %; Mean Corpuscular HGB Conc 34 g/dL (31-36); Mean Corpuscular Hemoglobin 29 pg (27-31); Mean Corpuscular Volume 85 fL (80-97); Mean Platelet Volume 9.6 fL (7.4-10.4); Platelet Count 220 10^3/uL (150-450); Red Blood Count 4.63 10^6 /uL (3.70-4.87); Red Cell Distribution Width 14 % (10-15); White Blood Count 7.3 10^3/uL (3.5-10.8)
[2020-02-22 20:22] LABS: Albumin 4.4 g/dL (3.2-5.2); Albumin/Globulin Ratio 1.4 (1-3); BUN/Creatinine Ratio 27.5 (8-20); Calcium 9.9 mg/dL (8.6-10.3); EGFR African American 106.5 (>60); Globulin 3.2 g/dL (2-4); Potassium 4.1 mmol/L (3.5-5.0); Total Bilirubin 0.3 mg/dL (0.2-1.0); Total Protein 7.6 g/dL (6.4-8.9)
[2020-02-22 20:25] LABS: Troponin I 0.01 ng/mL (<0.03)
[2020-02-22] MEDS ORDERED: Insulin LISPRO* 1 UNITS UNIT SUBCUT ONE (20:28)
[2020-02-22] MEDS ORDERED: Dextrose 50% Syringe 50 ML* 25 GM/50 ML SYRINGE IV PUSH PRN (20:28)
[2020-02-22] MEDS ORDERED: NS 0.9% 1000 ML** 1,000 ML IV ONE (20:31)
[2020-02-22] MEDS ORDERED: Iodixanol* (CONTRAST) 320 MG/ML 100 ML SDV IV ONE (20:39)
[2020-02-22] MEDS ORDERED: Lidocaine PATCH 5%* 1 PATCH TRANSDERM ONE (22:20)
[2020-02-22] MEDS ORDERED: Apixaban* 5 MG TAB PO ONE (23:00)
[2020-02-22] MEDS ORDERED: Ondansetron INJ* 2 MG/ML VIAL IV PRN (23:08)
[2020-02-22] MEDS ORDERED: Cyclobenzaprine TAB* 10 MG PO PRN (23:14)
[2020-02-22] MEDS ORDERED: HYDROcodone/ACETAMIN 5-325 MG* 1 TAB PO PRN (23:14)
[2020-02-23] MEDS: Morphine INJ* 2 MG/ML 1 ML SYRINGE (TWO MG - NEW SYRINGE VERSION) IV PRN ×3 (00:58→10:44)
--- NOTE | 2020-02-23 03:58 | HP ---
CC: Dr. Armen Goodman; Dr. Luis Mckeon * ADMISSION HISTORY AND PHYSICAL: DATE OF ADMISSION: 02/22/20 PRIMARY CARE PROVIDER: Dr. Armen Goodman. MY ATTENDING WHILE IN THE HOSPITAL: Dr. Benito Hurtado.* (DICTATED BY POLO DENNIS) OUTPATIENT LABORER SAWMILL/ONCOLOGIST: Dr. Luis Mckeon. CHIEF COMPLAINT: Chest pain x6 days. HISTORY OF PRESENT ILLNESS: Ms. Simpson is a 54-year-old female with past medical history significant for unprovoked pulmonary embolism in January of 2019; diabetes mellitus, type 2; gastroparesis; and history of opioid abuse, who presented to the emergency department with 6-day history of severe right-sided chest pain that had been getting worse despite conservative care. The patient states that she was sleeping on the couch on 02/16/20 and fell off the couch while sleeping. She hit her right elbow and felt that she bruised her right ribs. She came into the emergency department. At that time, had a chest x-ray, which showed no rib fractures. The patient was sent home with recommendation for conservative measures and the patient states that her pain did not respond to this and it actually got worse to the point that it became severe and she could not stand it anymore. The patient had no other chest pain , no shortness of breath, no dizziness. The patient has had no swelling in her legs. No recent immobilization or long car rides. The patient did have some palpitations. The patient had no other recent changes in her medications. The patient was treated for 6 months with Eliquis for her previous pulmonary embolism. The patient because of her pain has been ignoring her blood sugars and in the emergency department was found to have a blood glucose of 551, much above what she normally says her blood glucose is at 100 to 120. The patient in the emergency department was found to have a D-dimer, which was 254 and age adjusted cutoff for this patient would generally have been 265. A CTA was performed regardless and showed subsegmental pulmonary emboli in the right lower lobe explaining the patient's pain. A rib x-ray also showed no acute trauma. Due to concern for acute pulmonary embolism, we were asked to evaluate the patient for admission to the hospital. PAST MEDICAL HISTORY: 1. Unprovoked pulmonary embolism on January 2019. 2. Diabetes mellitus, type 2. 3. Hypertension. 4. Hyperlipidemia. 5. GERD. 6. Depression. 7. Anxiety. 8. History of opioid abuse, on Suboxone therapy. 9. Gastroparesis. 10. History of colitis due to fecalith. 11. Constipation. PAST SURGICAL HISTORY: 1. Cholecystectomy. 2. Hysterectomy. 3. Right knee surgery. MEDICATIONS: 1. Glargine 50 units subcutaneous b.i.d. 2. Gabapentin 600 mg p.o. t.i.d. 3. Protonix 40 mg p.o. daily. 4. Phenergan 12.5 mg p.o. t.i.d. 5. Flexeril 5 mg p.o. t.i.d. 6. Clonidine 0.5 mg p.o. t.i.d. 7. Lisinopril 10 mg p.o. daily. 8. Amlodipine 10 mg p.o. daily. 9. Topiramate 50 mg p.o. b.i.d. 10. Lipitor 20 mg p.o. daily. 11. Seroquel 50 mg p.o. at bedtime. 12. Buprenorphine 8/2 three tabs t.i.d. 13. Bethanechol 25 mg p.o. 4 times a day. 14. Insulin lispro 10 units subcutaneous 3 times daily as needed. ALLERGIES: REGLAN, SULFA, and PENICILLINS. FAMILY HISTORY: The patient's father of pancreatic and stomach cancer. The patient's mother is alive and has hypertension and depression. The patient has a brother who is an alcoholic and has no other known health problems. The patient has a sister with an ileostomy of unknown indication. SOCIAL HISTORY: The patient smokes occasionally, generally due to stress. The patient denies alcohol use. The patient denies illicit drug use. 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 The patient is and has 2 children who have no health problems. The patient's surrogate decision maker will be her , Roger Simpson. REVIEW OF SYSTEMS: A 10-point review of systems was reviewed and is negative except as above in HPI. PHYSICAL EXAMINATION GENERAL: The patient is a 54-year-old female who appears stated age and sitting comfortably in bed, in no acute distress. VITAL SIGNS: At the time of evaluation, temperature 99.3, pulse rate 112, respiratory rate 15, oxygen saturation 96% on room air, blood pressure 119/78. HEENT: Head is normocephalic, atraumatic. Sclerae anicteric. No conjunctival injection. Nasal mucosa moist. Oral mucosa moist. No pharyngeal erythema, discharge, or exudate. NECK: Supple, nontender. No lymphadenopathy. No carotid bruits auscultated. No JVD. RESPIRATORY: Clear to auscultation bilaterally. No wheezes, rales, or rhonchi. Good air exchange bilaterally. Splinting due to pain. CARDIAC: Tachycardic. No clicks, murmurs, gallops, or rubs. Pulses 2+ in bilateral dorsalis pedis, posterior tibialis, and radial areas. ABDOMEN: Soft, nontender, and nondistended. Bowel sounds present, normoactive in all 4 quadrants. No hepatosplenomegaly. No abdominal bruits auscultated. No hepatojugular reflux. GENITOURINARY: No suprapubic or CVA tenderness. SKIN: Clean, dry, and intact. No rashes. NEUROLOGIC: Cranial nerves II through XII intact. No focal deficits. Alert and oriented x3. PSYCHIATRIC: Pleasant and cooperative. DIAGNOSTIC STUDIES/LAB DATA: White blood cell count 7.3, hemoglobin 13.5, platelet count 220. D-dimer 254. Sodium 130, potassium 4.18, chloride 96, carbon dioxide 23, anion gap 11, BUN 19, creatinine 0.69. Glucose 551, repeat 292. Calcium 9.9, bilirubin 0.3, AST 11, ALT 12, alkaline phosphatase 127. Troponin I 0.01. Protein 7.6, albumin 4.4, globulin 3.2. Chest, thorax CTA read as acute pulmonary embolism involving one of the segmental and subsegmental branches of the right lower lobe. Small granular opacity measuring 2 mm and 5 mm in the right middle lobe. If the patient is at low risk. No routine followup is indicated. For patients at high risk, optional CT at 12 months. Chest x-ray shows no acute fracture. No acute intrathoracic process. EKG shows sinus tachycardia, possible left atrial enlargement, Q waves present in lead V3 and aVF along with T wave inversions. No ST segment elevation or depression. Compared to previous exam, there are no significant changes except for tachycardia. ASSESSMENT AND PLAN: IMPRESSION: Ms. Simpson is a 54-year-old female with past medical history significant for unprovoked pulmonary embolism 1 year ago, diabetes, gastroparesis, and history of opioid abuse in remission, who presents to the emergency department with 1 week of right-sided chest pain getting worse despite conservative treatment, found to have acute pulmonary embolism and hyperglycemia. She will be admitted to the hospital for anticoagulation, pain control, and diabetic management. 1. Acute pulmonary embolism, right-sided chest pain. The patient has segmental and subsegmental pulmonary emboli on the right side corresponding to her pain. This is the same area where the patient had previous pulmonary emboli. The patient had been treated with 6 months of anticoagulation and a repeat CTA 2 weeks after her admission did show a significant decrease in her pulmonary embolism size. Given this and her clinical presentation, it is unlikely that the patient's pulmonary embolism is residual from her previous exam. The patient will be admitted to the hospital and will be restarted on Eliquis. The patient will have pain control with IV and oral medications. The patient is on a very large dose of buprenorphine, but this is not able to control her pain. The patient's buprenorphine will be continued, though if the patient's pain is not able to be controlled while on this, discontinuation of buprenorphine and changing to pure opioid agonist should be considered. The patient has an SPESI score of 1 indicating a high risk and greater than 8.9% risk of . The patient's PESI score, however, does show a low risk. Given the discrepancy in these evaluative tools, the patient's risk was discussed with the patient and she opted for hospitalization. The patient will have transthoracic echocardiogram to assess for right ventricular strain. The patient has an outpatient followup already with Dr. Mckeon set up to discuss her unprovoked pulmonary embolism. This should be continued and Hematology/ Oncology will not have to be consulted while in the hospital and the appropriateness or even indication of hypercoagulable workup for the patient's multiple unprovoked pulmonary embolisms should be deferred. 2. Diabetes mellitus, type 2. The patient is markedly hyperglycemic. This is likely related to the high adrenergic state and not taking her blood sugar medicines for the past week. The patient will be continued on her home glargine and scheduled insulin with insulin sliding scale. If the patient is persistently hyperglycemic while fasting, increasing the glargine should be considered. The patient should have routine followups for her hemoglobin A1c outpatient. Her recent one as of October 2019 was 9.5, which is improving over from the checks before that. 3. Hypertension. Continue the patient's clonidine and lisinopril. Hold the patient's amlodipine at this time due to normotension and acute pulmonary embolism. 4. Gastroparesis. Continue with the patient's Phenergan and Protonix. 5. Depression and anxiety. Continue the patient's quetiapine, gabapentin, topiramate. 6. History of opioid abuse. Continue the patient's Suboxone at this time. The patient's dosing of her buprenorphine is much higher than it is normally recommended for maintenance of opioid withdrawal. If this is being used concurrently for treatment of chronic pain, consideration of pure opioid agonists such as methadone. 7. DVT prophylaxis. The patient will be started on Eliquis per induction protocol. 8. FEN. The patient will have a consistent carbohydrate diet. Fluids not indicated at this time. 9. Disposition. The patient will be admitted for observation in the hospital. TIME SPENT: Approximately 60 minutes was spent on admission of this patient, 30 of which is spent [id number] with the patient obtaining history and physical and discussing treatment plan. The plan was discussed with my attending, Dr. Benito Hurtado and he is in agreement. POLO DENNIS [id number]/[facility] #: [id number] KYLE
[2020-02-23 05:51] LABS: ABS Eosinophils 0.2 10^3/ul (0-0.6); ABS Lymphocytes 2.1 10^3/ul (1.0-4.8); ABS Monocytes 0.4 10^3/ul (0-0.8); ABS Neutrophils 2.6 10^3/ul (1.5-7.7); Eosinophil % 2.9 %; Hematocrit 36 % (35-47); Hemoglobin 12.2 g/dL (12.0-16.0); Mean Corpuscular HGB Conc 34 g/dL (31-36); Mean Corpuscular Hemoglobin 29 pg (27-31); Mean Corpuscular Volume 86 fL (80-97); Mean Platelet Volume 9.8 fL (7.4-10.4); Nucleated Red Blood Cells % 0.1; Platelet Count 176 10^3/uL (150-450); Red Blood Count 4.17 10^6 /uL (3.70-4.87); Red Cell Distribution Width 14 % (10-15); White Blood Count 5.3 10^3/uL (3.5-10.8)
[2020-02-23 06:10] LABS: BUN/Creatinine Ratio 28.3 (8-20); Calcium 8.6 mg/dL (8.6-10.3); EGFR African American 125.1 (>60); EGFR Non-African American 103.4 (>60); Magnesium 1.7 mg/dL (1.9-2.7); Potassium 3.8 mmol/L (3.5-5.0)
[2020-02-23] MEDS: Insulin LISPRO* 1 UNITS UNIT SUBCUT SCH ×7 (07:28→21:21)
[2020-02-23] MEDS: Insulin GLARGINE(*) 1 UNITS UNIT SUBCUT SCH ×2 (07:29→21:22)
[2020-02-23] MEDS: Lidocaine PATCH 5%* 1 PATCH TRANSDERM SCH (07:30)
[2020-02-23] MEDS: Gabapentin CAP(*) 300 MG PO SCH ×3 (07:32→20:26)
[2020-02-23] MEDS: Topiramate TAB(*) 25 MG PO SCH ×2 (07:33→20:26)
[2020-02-23] MEDS: Pantoprazole TAB * 40 MG TAB PO SCH (07:35)
[2020-02-23] MEDS: cloNIDine TAB* 0.1 MG PO SCH ×3 (07:35→20:27)
[2020-02-23] MEDS: Bethanechol TAB* 25 MG PO SCH ×4 (07:36→20:25)
[2020-02-23] MEDS ORDERED: Buprenorp/Nalox 8-2 MG FILM SL FILM SCH (09:00)
[2020-02-23] MEDS ORDERED: Lisinopril TAB* 10 MG PO SCH (09:00)
--- NOTE | 2020-02-23 10:58 | PN ---
Subjective Date of Service: 02/23/20 Interval History: Patient reports severe 8/10 RT thoracic pain. She has dyspnea w/ exertion, pleuritic chest pain, pain w/ movement. No anterior chest pain, no abdominal pain, N/V, diarrhea. Family History: Unchanged from Admission Social History: Unchanged from Admission Past Medical History: Unchanged from Admission Objective Active Medications: Acetaminophen (Tylenol Tab*) 650 mg PO Q6H PRN PRN Reason: MILD PAIN or TEMP > 100.4 Apixaban (Eliquis*) 10 mg PO BID [facility] Stop: 02/29/20 09:01 Atorvastatin Calcium (Lipitor*) 20 mg PO BEDTIME [facility] Bethanechol Chloride (Urecholine Tab*) 25 mg PO QID [facility] Last Admin: 02/23/20 07:36 Dose: 25 mg Buprenorphine/Naloxone (Suboxone 8 Mg-2 Mg Sl Film) 1 each SL FILM TID [facility] Clonidine HCl (Catapres Tab*) 0.1 mg PO TID [facility] Last Admin: 02/23/20 07:35 Dose: 0.1 mg Cyclobenzaprine HCl (Flexeril Tab*) 5 mg PO TID PRN PRN Reason: SPASMS - MUSCLE Dextrose (D50w Syringe 50 Ml*) 12.5 gm IV PUSH .FOR FS < 60 - SS PRN PRN Reason: FS < 60 Gabapentin (Neurontin Cap(*)) 600 mg PO TID [facility] Last Admin: 02/23/20 07:32 Dose: 600 mg Hydromorphone HCl (Dilaudid Inj*) 1.5 mg IV SLOW PU Q4H PRN PRN Reason: PAIN - SEVERE Insulin Glargine (Lantus(*)) 40 units SUBCUT BID [facility] Last Admin: 02/23/20 07:29 Dose: 40 units Insulin Human Lispro (Humalog*) 0 units SUBCUT ACHS [facility]; Protocol Last Admin: 02/23/20 07:28 Dose: 12 units Insulin Human Lispro (Humalog*) 10 units SUBCUT AC [facility] Last Admin: 02/23/20 07:29 Dose: 10 units Lidocaine (Lidoderm 5% Patch*) 1 patch TRANSDERM DAILY [facility] Last Admin: 02/23/20 07:30 Dose: 1 patch Lisinopril (Prinivil Tab*) 10 mg PO DAILY [facility] Last Admin: 02/23/20 07:35 Dose: 10 mg Ondansetron HCl (Zofran Inj*) 4 mg IV Q6H PRN PRN Reason: NAUSEA Pantoprazole Sodium (Protonix Tab*) 40 mg PO DAILY [facility] Last Admin: 02/23/20 07:35 Dose: 40 mg Promethazine HCl (Phenergan 25 Mg Tab) 25 mg PO Q8H PRN PRN Reason: NAUSEA Quetiapine Fumarate (Seroquel Tab*) 25 mg PO BEDTIME [facility] Topiramate (Topamax(*)) 50 mg PO BID [facility] Last Admin: 02/23/20 07:33 Dose: 50 mg Vital Signs - 8 hr 02/23/20 02/23/20 02/23/20 03:04 03:12 05:05 Temperature 36.4 C Pulse Rate 90 Respiratory 16 20 18 Rate Blood Pressure 114/72 (mmHg) O2 Sat by Pulse 99 Oximetry 02/23/20 02/23/20 02/23/20 05:09 06:05 07:15 Temperature 36.3 C Pulse Rate 80 Respiratory 18 16 16 Rate Blood Pressure 111/69 (mmHg) O2 Sat by Pulse 98 Oximetry Oxygen Devices in Use Now: None Appearance: mild distress Eyes: No Scleral Icterus Neck: NL Appearance and Movements; NL JVP, No Thyroid Enlargement, Masses Respiratory: Symmetrical Chest Expansion and Respiratory Effort, - - rales RT base 1/[address] way up Cardiovascular: NL Sounds; No Murmurs; No JVD, RRR Abdominal: NL Sounds; No Tenderness; No Distention Neurological: Alert and Oriented x 3 Lines/Tubes/Other Access: Clean, Dry and Intact Peripheral IV Nutrition: Taking PO's Result Diagrams: 02/23/20 05:20 02/23/20 05:19 Assess/Plan/Problems-Billing Assessment: 54 year old woman with recurrent PE, chest pain, opiate use disorder - Patient Problems (1) Pulmonary embolism Current Visit: No Status: Acute Priority: High Code(s): I26.99 - OTHER PULMONARY EMBOLISM WITHOUT ACUTE COR PULMONALE SNOMED Code(s): 63441465 Comment: -Acute unprovoked PE in January 2019, recurrent on this admission -We have started back on Eliquis 10 BID for 7 days -Will have outpatient hematology consult -Remain in hospital for pain control, monitoring (2) Chest pain at rest Current Visit: Yes Status: Acute Priority: Medium Code(s): R07.9 - CHEST PAIN, UNSPECIFIED SNOMED Code(s): 1421117 Comment: -Pain appears due to PE -Will use IV dilaudid, find dose that overcomes blockade by buprenorphine (3) Opioid use disorder Current Visit: No Status: Acute Priority: Medium Code(s): F11.99 - OPIOID USE, UNSP WITH UNSPECIFIED OPIOID-INDUCED DISORDER SNOMED Code(s): 7138434 Comment: -Continue home dose of suboxone. -Spread out dosing, can help with pain control Status and Disposition: inpatient
[2020-02-23] MEDS ORDERED: NS 0.9% 500 ML* 500 ML IV ONE (11:41)
[2020-02-23] MEDS: Apixaban* 5 MG TAB PO SCH ×2 (11:53→20:25)
--- NOTE | 2020-02-23 12:46 | ECHO ---
*[facility]* [place] [address] Fax #: [phone] Transthoracic Echocardiogram Patient: Evie Simpson : 1965 Study Date: 02/23/2020 Age: 54 Gender: F HR: 84 bpm Height: 61 in /154.9 cm BSA: 1.62 m^2 Weight: 139.7 lb /63.5 kg BMI: 26.5 kg/m^2 *Tank Pumper Panelboard: * Shyla Jefferson [facility] *Referring Physician: * Merlin Mcclendon *Reading Physician: * Govind Novak MD Indications: Pulmonary Embolism. SOB. History: Pulmonary Embolism. 01/2019. Risk factors: Hypertension. Diabetes mellitus. Dyslipidemia. Conclusions Summary: - Impressions: The study is unchanged since the study of September 2019. - Left ventricle: The cavity size is at the lower limits of normal. Wall thickness is mildly increased. Systolic function is normal. The estimated ejection fraction is 60-65%. Subtle relative Hypokinesis of the basal inferolateral and inferior myocardium. Doppler parameters are consistent with abnormal left ventricular relaxation (grade 1 diastolic dysfunction). Study data: Transthoracic echocardiogram. Procedure: Transthoracic echocardiography was performed. Image quality was fair. Complete 2D, spectral Doppler, and color flow Doppler. Location: Bedside. Patient status: Inpatient. Patient room number: 453. The previous study was not available, so comparison is made to the report of September 2019. Rhythm: Normal sinus rhythm. Findings Left ventricle: The cavity size is at the lower limits of normal. Wall thickness is mildly increased. Systolic function is normal. The estimated ejection fraction is 60-65%. Regional wall motion abnormalities: Subtle relative Hypokinesis of the basal inferolateral and inferior myocardium. Doppler parameters are consistent with abnormal left ventricular relaxation (grade 1 diastolic dysfunction). Right ventricle: The cavity size is mildly to moderately dilated. Systolic function is normal. Left atrium: The atrium is normal in size. Right atrium: The atrium is normal in size. Mitral valve: The leaflets are mildly thickened. There is no evidence of stenosis. There is trace regurgitation. Aortic valve: The valve is trileaflet. The leaflets are mildly thickened. There is no significant regurgitation. Tricuspid valve: The leaflets are normal thickness. There is no evidence of stenosis. There is physiologic regurgitation. Pulmonic valve: The leaflets are normal thickness. There is no evidence of stenosis. There is trace regurgitation. Aorta: Aortic root: The aortic root is appears normal. Ascending aorta: The ascending aorta is appears normal. Aortic arch: The aortic arch is appears normal. Pericardium: A prominent pericardial fat pad is present. There is no significant pericardial effusion. Pulmonary arteries: The main pulmonary artery is normal-sized. Systolic pressure can not be accurately estimated. Systemic veins: Inferior vena cava: The vessel is normal in size. There is (>= 50%) respiratory change in the IVC dimension. Measurements Left ventricle Value Ref Right atrium continued Value Ref NICOLASA, LAX (L) 3.7 cm 3.8 - 5.2 ML dim, ES, A4C 3.6 cm 2.6 - 4.4 ESD, LAX 2.6 cm 2.2 - 3.5 Estimated RAP 3 mm Hg --------- FS, LAX 29 % 45 PW, ED, LAX (H) 1.2 cm 0.6 - 0.9 Aortic valve Value Ref FS 29 % 45 Redd diam, ED 2.1 cm --------- Mid-wall FS 10 % Peak v, S 1.3 m/sec --------- PW, ED (H) 1.2 cm 0.6 - 0.9 VTI, S 22.4 cm --------- E', lat redd, TDI (L) 7.4 cm/sec >=10.0 Mean grad, S 3.0 mm Hg -- ------- E/e', lat redd, 10 Peak grad, S 7.0 mm Hg ----- ---- TDI LVOT/AV, VTI ratio 0.89 --------- E', med redd, TDI (L) 5.4 cm/sec >=7.0 E/e', med redd, 13 Mitral valve Value Ref TDI Peak E 0.7 m/sec --------- E', avg, TDI 6.4 cm/sec Peak A 0.61 m/sec ----- ---- E/e', avg, TDI 11 <=14 Decel time 155 ms -- ------- Peak E/A ratio 1.2 --------- LVOT Value Ref Peak gatito, S 1.1 m/sec Pulmonic valve Value Ref VTI, S 20.0 cm Peak v, S 0.7 m/sec --------- Peak grad, S 5 mm Hg Peak grad, S 2.0 mm Hg --------- Mean grad, S 2 mm Hg Aortic root Value Ref Ventricular septum Value Ref Root diam 2.9 cm <3.9 IVS, ED (H) 1.2 cm 0.6 - 0.9 Ascending aorta Value Ref Right ventricle Value Ref AAo AP diam, S 3.0 cm --------- NICOLASA, LAX 3.5 cm NICOLASA minor ax, A4C (H) 4.0 cm 1.9 - 3.5 Aortic arch Value Ref mid Arch diam 2.8 cm --------- Left atrium Value Ref Decending aorta Value Ref AP dim, ES 3.80 cm 2.70 - Lisa peak gatito 0.64 m/sec --------- 3.80 ML dim, A4C 3.7 cm Inferior vena cava Value Ref SI dim, A4C 4.5 cm Diam 1.4 cm --------- Vol/bsa, ES, 1-p 27 ml/m^2 11 - 40 A4C Vol/bsa, ES, A/L 29 ml/m^2 16 - 34 Right atrium Value Ref SI dim, ES 4.8 cm 3.4 - 5.3 Legend: (L) and (H) arti values outside specified reference range. Prepared and electronically signed by Govind Novak MD 02/23/2020 12:45
[2020-02-23] MEDS: HYDROmorphone INJ* 0.5 MG/0.5 ML SYRINGE IV SLOW PU PRN ×2 (15:32→20:27)
[2020-02-23] MEDS: QUEtiapine TAB* 25 MG PO SCH (20:26)
[2020-02-23] MEDS: Atorvastatin* 20 MG TAB PO SCH (20:26)
[2020-02-23] MEDS: Lidocaine Patch REMOVE* 1 NOTE MISC SCH (21:30)
[2020-02-24] MEDS: HYDROmorphone INJ* 0.5 MG/0.5 ML SYRINGE IV SLOW PU PRN ×4 (08:20→21:49)
[2020-02-24] MEDS: Pantoprazole TAB * 40 MG TAB PO SCH (08:25)
[2020-02-24] MEDS: Buprenorp/Nalox 8-2 MG FILM SL FILM SCH ×4 (08:25→21:44)
[2020-02-24] MEDS: Apixaban* 5 MG TAB PO SCH ×2 (08:25→21:47)
[2020-02-24] MEDS: cloNIDine TAB* 0.1 MG PO SCH ×4 (08:26→21:47)
[2020-02-24] MEDS: Topiramate TAB(*) 25 MG PO SCH ×2 (08:26→21:46)
[2020-02-24] MEDS: Gabapentin CAP(*) 300 MG PO SCH ×3 (08:28→21:46)
[2020-02-24] MEDS: Bethanechol TAB* 25 MG PO SCH ×4 (08:29→21:48)
[2020-02-24] MEDS: Insulin GLARGINE(*) 1 UNITS UNIT SUBCUT SCH ×2 (08:30→21:46)
[2020-02-24] MEDS: Insulin LISPRO* 1 UNITS UNIT SUBCUT SCH ×7 (08:31→21:45)
[2020-02-24] MEDS: Lidocaine PATCH 5%* 1 PATCH TRANSDERM SCH (08:33)
--- NOTE | 2020-02-24 13:38 | PN ---
Subjective Date of Service: 02/24/20 Interval History: Patient is still having severe pain in her chest, making it hard to take a deep breath. Patient denies F/C, N/V, abdominal pain, dizziness, palpitations, of other pain. Patient is very concerned about her low BP. Family History: Unchanged from Admission Social History: Unchanged from Admission Past Medical History: Unchanged from Admission Objective Active Medications: Acetaminophen (Tylenol Tab*) 650 mg PO Q6H PRN PRN Reason: MILD PAIN or TEMP > 100.4 Apixaban (Eliquis*) 10 mg PO BID [facility] Stop: 02/29/20 09:01 Last Admin: 02/24/20 08:25 Dose: 10 mg Atorvastatin Calcium (Lipitor*) 20 mg PO BEDTIME [facility] Last Admin: 02/23/20 20:26 Dose: 20 mg Bethanechol Chloride (Urecholine Tab*) 25 mg PO QID [facility] Last Admin: 02/24/20 13:11 Dose: 25 mg Buprenorphine/Naloxone (Suboxone 8 Mg-2 Mg Sl Film) 1 each SL FILM TID [facility] Last Admin: 02/24/20 13:09 Dose: 1 each Clonidine HCl (Catapres Tab*) 0.1 mg PO TID [facility] Last Admin: 02/24/20 13:15 Dose: Not Given Cyclobenzaprine HCl (Flexeril Tab*) 5 mg PO TID PRN PRN Reason: SPASMS - MUSCLE Dextrose (D50w Syringe 50 Ml*) 12.5 gm IV PUSH .FOR FS < 60 - SS PRN PRN Reason: FS < 60 Gabapentin (Neurontin Cap(*)) 600 mg PO TID [facility] Last Admin: 02/24/20 13:10 Dose: 600 mg Hydromorphone HCl (Dilaudid Inj*) 1.5 mg IV SLOW PU Q4H PRN PRN Reason: PAIN - SEVERE Last Admin: 02/24/20 13:11 Dose: 1.5 mg Insulin Glargine (Lantus(*)) 40 units SUBCUT BID [facility] Last Admin: 02/24/20 08:30 Dose: 40 units Insulin Human Lispro (Humalog*) 0 units SUBCUT ACHS [facility]; Protocol Last Admin: 02/24/20 12:47 Dose: 2 units Insulin Human Lispro (Humalog*) 10 units SUBCUT AC [facility] Last Admin: 02/24/20 12:48 Dose: 10 units Lidocaine (Lidoderm 5% Patch*) 1 patch TRANSDERM DAILY [facility] Last Admin: 02/24/20 08:33 Dose: 1 patch Ondansetron HCl (Zofran Inj*) 4 mg IV Q6H PRN PRN Reason: NAUSEA Pantoprazole Sodium (Protonix Tab*) 40 mg PO DAILY [facility] Last Admin: 02/24/20 08:25 Dose: 40 mg Pharmacy Profile Note (Lidocaine Patch Remove*) 1 note N/A 2100 [facility] Last Admin: 02/23/20 21:30 Dose: 1 note Promethazine HCl (Phenergan 25 Mg Tab) 25 mg PO Q8H PRN PRN Reason: NAUSEA Quetiapine Fumarate (Seroquel Tab*) 25 mg PO BEDTIME [facility] Last Admin: 02/23/20 20:26 Dose: 25 mg Topiramate (Topamax(*)) 50 mg PO BID [facility] Last Admin: 02/24/20 08:26 Dose: 50 mg Vital Signs - 8 hr 02/24/20 02/24/20 02/24/20 07:15 08:00 08:13 Temperature 98.4 F Pulse Rate 70 Respiratory 17 20 Rate Blood Pressure 148/96 132/72 (mmHg) O2 Sat by Pulse 98 Oximetry 02/24/20 02/24/20 02/24/20 08:20 08:28 09:30 Temperature Pulse Rate Respiratory 20 20 20 Rate Blood Pressure (mmHg) O2 Sat by Pulse Oximetry 02/24/20 02/24/20 02/24/20 10:06 11:15 13:10 Temperature 98 F Pulse Rate 74 Respiratory 20 17 18 Rate Blood Pressure 108/69 (mmHg) O2 Sat by Pulse 99 Oximetry 02/24/20 02/24/20 13:11 13:15 Temperature Pulse Rate Respiratory 18 Rate Blood Pressure 110/70 (mmHg) O2 Sat by Pulse Oximetry Oxygen Devices in Use Now: None Appearance: Patient is a 54yo female who appears stated age and is sitting in the bed in [facility]. Eyes: No Scleral Icterus, PERRLA Ears/Nose/Mouth/Throat: NL Teeth, Lips, Gums, Clear Oropharnyx, Mucous Membranes Moist Neck: NL Appearance and Movements; NL JVP, Trachea Midline Respiratory: Symmetrical Chest Expansion and Respiratory Effort, Clear to Auscultation Cardiovascular: NL Sounds; No Murmurs; No JVD, RRR, No Edema Abdominal: NL Sounds; No Tenderness; No Distention, No Hepatosplenomegaly Lymphatic: No Cervical Adenopathy Extremities: No Edema, No Clubbing, Cyanosis Skin: No Rash or Ulcers, No Nodules or Sclerosis Neurological: Alert and Oriented x 3, NL Sensation, NL Muscle Strength and Tone , - - CN II-XII intact. Result Diagrams: 02/23/20 05:20 02/23/20 05:19 Assess/Plan/Problems-Billing Assessment: 54 year old woman with recurrent PE, chest pain, opiate use disorder - Patient Problems (1) Pulmonary embolism Current Visit: No Status: Acute Priority: High Code(s): I26.99 - OTHER PULMONARY EMBOLISM WITHOUT ACUTE COR PULMONALE SNOMED Code(s): 22996625 Comment: - Acute unprovoked PE in January 2019, recurrent on this admission - 2 unprovoked PEs, may need indefinite anticoagulation. - We have started back on Eliquis 10 BID for 7 days - Will have outpatient hematology consult - Remain in hospital for pain control, monitoring - Low BP yesterday (2) Chest pain at rest Current Visit: Yes Status: Acute Priority: Medium Code(s): R07.9 - CHEST PAIN, UNSPECIFIED SNOMED Code(s): 5281143 Comment: - Pain appears to be due to PE - Will use IV dilaudid, find dose that overcomes blockade by buprenorphine (3) Anxiety Current Visit: No Status: Acute Code(s): F41.9 - ANXIETY DISORDER, UNSPECIFIED SNOMED Code(s): 83071539 Comment: - Continue home medications. (4) Diabetes mellitus Current Visit: No Status: Acute Code(s): E11.9 - TYPE 2 DIABETES MELLITUS WITHOUT COMPLICATIONS SNOMED Code(s): 47193444 Comment: - Continue Glargine, Scheduled mealtime insulin and SSI - Very poorly controlled on admission. (5) Gastroparesis Current Visit: No Status: Acute Code(s): K31.84 - GASTROPARESIS SNOMED Code(s): 848010495 Comment: - With chronic pain and nausea - Continue pain control and antiemetics. (6) Opioid use disorder Current Visit: No Status: Acute Priority: Medium Code(s): F11.99 - OPIOID USE, UNSP WITH UNSPECIFIED OPIOID-INDUCED DISORDER SNOMED Code(s): 2243024 Comment: - Continue home dose of suboxone. - Spread out dosing, can help with pain control - Will need pure opoid agonists in the short term. (7) DVT prophylaxis Current Visit: No Status: Acute Code(s): FMV8700 - SNOMED Code(s): 515295462 Comment: - Ab (8) Full code status Current Visit: No Status: Acute Code(s): Z78.9 - OTHER SPECIFIED HEALTH STATUS SNOMED Code(s): 406144053 Status and Disposition: Inpatient for pain control.
[2020-02-24] MEDS ORDERED: Ibuprofen TAB* 400 MG PO PRN (17:35)
[2020-02-24] MEDS: QUEtiapine TAB* 25 MG PO SCH (21:47)
[2020-02-24] MEDS: Atorvastatin* 20 MG TAB PO SCH (21:47)
[2020-02-24] MEDS: Lidocaine Patch REMOVE* 1 NOTE MISC SCH (21:48)
[2020-02-25] MEDS: HYDROmorphone INJ* 0.5 MG/0.5 ML SYRINGE IV SLOW PU PRN ×4 (02:58→20:29)
[2020-02-25] MEDS: Insulin LISPRO* 1 UNITS UNIT SUBCUT SCH ×7 (07:47→20:33)
[2020-02-25] MEDS: Acetaminophen TAB* 325 MG PO PRN ×2 (09:18→22:11)
[2020-02-25] MEDS ORDERED: HYDROmorphone INJ* 0.5 MG/0.5 ML SYRINGE IV SLOW PU PRN (09:41)
[2020-02-25] MEDS: Lidocaine PATCH 5%* 1 PATCH TRANSDERM SCH (10:23)
[2020-02-25] MEDS: Topiramate TAB(*) 25 MG PO SCH ×2 (10:33→20:26)
[2020-02-25] MEDS: Pantoprazole TAB * 40 MG TAB PO SCH (10:33)
[2020-02-25] MEDS: Apixaban* 5 MG TAB PO SCH ×2 (10:34→20:25)
[2020-02-25] MEDS: Gabapentin CAP(*) 300 MG PO SCH ×3 (10:34→20:25)
[2020-02-25] MEDS: Bethanechol TAB* 25 MG PO SCH ×4 (10:35→20:26)
[2020-02-25] MEDS: cloNIDine TAB* 0.1 MG PO SCH ×3 (10:35→20:26)
[2020-02-25] MEDS: Buprenorp/Nalox 8-2 MG FILM SL FILM SCH ×3 (10:38→20:26)
[2020-02-25] MEDS: Insulin GLARGINE(*) 1 UNITS UNIT SUBCUT SCH ×2 (12:08→20:42)
--- NOTE | 2020-02-25 14:59 | PN ---
Subjective Date of Service: 02/25/20 Interval History: Patient's chest pain has increased again today. There was no trauma or other changes in symptoms. Patient denies F/C, N/V, abdominal pain. when discussing diabetic control patient states that she has been very bad about adhering to dietary recommendations and her insulin due to stress about her 's health and taking care of her grandchildren. Family History: Unchanged from Admission Social History: Unchanged from Admission Past Medical History: Unchanged from Admission Objective Active Medications: Acetaminophen (Tylenol Tab*) 650 mg PO Q6H PRN PRN Reason: MILD PAIN or TEMP > 100.4 Last Admin: 02/25/20 09:18 Dose: 650 mg Apixaban (Eliquis*) 10 mg PO BID [facility] Stop: 02/29/20 09:01 Last Admin: 02/25/20 10:34 Dose: 10 mg Atorvastatin Calcium (Lipitor*) 20 mg PO BEDTIME [facility] Last Admin: 02/24/20 21:47 Dose: 20 mg Bethanechol Chloride (Urecholine Tab*) 25 mg PO QID [facility] Last Admin: 02/25/20 13:02 Dose: 25 mg Buprenorphine/Naloxone (Suboxone 8 Mg-2 Mg Sl Film) 1 each SL FILM TID [facility] Last Admin: 02/25/20 13:04 Dose: 1 each Clonidine HCl (Catapres Tab*) 0.1 mg PO TID [facility] Last Admin: 02/25/20 13:03 Dose: 0.1 mg Cyclobenzaprine HCl (Flexeril Tab*) 5 mg PO TID PRN PRN Reason: SPASMS - MUSCLE Dextrose (D50w Syringe 50 Ml*) 12.5 gm IV PUSH .FOR FS < 60 - SS PRN PRN Reason: FS < 60 Gabapentin (Neurontin Cap(*)) 600 mg PO TID [facility] Last Admin: 02/25/20 13:03 Dose: 600 mg Hydromorphone HCl (Dilaudid Inj*) 1.5 mg IV SLOW PU Q4H PRN PRN Reason: PAIN - SEVERE Ibuprofen (Motrin Tab*) 400 mg PO Q6H PRN PRN Reason: PAIN - MODERATE Insulin Glargine (Lantus(*)) 40 units SUBCUT BID [facility] Last Admin: 02/25/20 12:08 Dose: 40 units Insulin Human Lispro (Humalog*) 0 units SUBCUT ACHS [facility]; Protocol Last Admin: 02/25/20 12:09 Dose: 3 units Insulin Human Lispro (Humalog*) 10 units SUBCUT AC [facility] Last Admin: 02/25/20 12:09 Dose: 10 units Lidocaine (Lidoderm 5% Patch*) 1 patch TRANSDERM DAILY [facility] Last Admin: 02/25/20 10:23 Dose: 1 patch Ondansetron HCl (Zofran Inj*) 4 mg IV Q6H PRN PRN Reason: NAUSEA Oxycodone HCl (Roxycodone Tab*) 10 mg PO Q4H PRN PRN Reason: PAIN - MODERATE Pantoprazole Sodium (Protonix Tab*) 40 mg PO DAILY [facility] Last Admin: 02/25/20 10:33 Dose: 40 mg Pharmacy Profile Note (Lidocaine Patch Remove*) 1 note N/A [address] [facility] Last Admin: 02/24/20 21:48 Dose: 1 note Promethazine HCl (Phenergan 25 Mg Tab) 25 mg PO Q8H PRN PRN Reason: NAUSEA Quetiapine Fumarate (Seroquel Tab*) 25 mg PO BEDTIME [facility] Last Admin: 02/24/20 21:47 Dose: 25 mg Topiramate (Topamax(*)) 50 mg PO BID [facility] Last Admin: 02/25/20 10:33 Dose: 50 mg Vital Signs - 8 hr 02/25/20 02/25/20 02/25/20 07:57 08:00 09:40 Temperature 97.5 F Pulse Rate 66 Respiratory 18 20 16 Rate Blood Pressure 113/67 (mmHg) O2 Sat by Pulse 100 Oximetry 02/25/20 02/25/20 02/25/20 10:34 10:39 11:43 Temperature 98 F Pulse Rate 71 Respiratory 18 18 20 Rate Blood Pressure 120/75 (mmHg) O2 Sat by Pulse 99 Oximetry 02/25/20 02/25/20 12:00 13:03 Temperature Pulse Rate Respiratory 18 17 Rate Blood Pressure (mmHg) O2 Sat by Pulse Oximetry Oxygen Devices in Use Now: None Appearance: Patient is a 54yo female who appears stated age and is sitting in the bed in [facility]. Eyes: No Scleral Icterus, PERRLA Ears/Nose/Mouth/Throat: NL Teeth, Lips, Gums, Clear Oropharnyx, Mucous Membranes Moist Neck: NL Appearance and Movements; NL JVP, Trachea Midline Respiratory: Symmetrical Chest Expansion and Respiratory Effort, Clear to Auscultation Cardiovascular: NL Sounds; No Murmurs; No JVD, RRR, No Edema Abdominal: NL Sounds; No Tenderness; No Distention, No Hepatosplenomegaly Lymphatic: No Cervical Adenopathy Extremities: No Edema, No Clubbing, Cyanosis Skin: No Rash or Ulcers, No Nodules or Sclerosis Neurological: Alert and Oriented x 3, NL Sensation, NL Muscle Strength and Tone , - - CN II-XII intact. Result Diagrams: 02/23/20 05:20 02/23/20 05:19 Assess/Plan/Problems-Billing Assessment: 54 year old woman with recurrent PE, chest pain, opiate use disorder - Patient Problems (1) Pulmonary embolism Current Visit: No Status: Acute Priority: High Code(s): I26.99 - OTHER PULMONARY EMBOLISM WITHOUT ACUTE COR PULMONALE SNOMED Code(s): 02724557 Comment: - Acute unprovoked PE in January 2019, recurrent on this admission - 2 unprovoked PEs, may need indefinite anticoagulation. - We have started back on Eliquis 10 BID for 7 days - Will have outpatient hematology consult - Remain in hospital for pain control, monitoring - Still severe pain for which there is no other probable cause. (2) Chest pain at rest Current Visit: Yes Status: Acute Priority: Medium Code(s): R07.9 - CHEST PAIN, UNSPECIFIED SNOMED Code(s): 1798888 Comment: - Pain appears to be due to PE, worsening for unclear cause - Will use IV dilaudid, find dose that overcomes blockade by buprenorphine - Attempt to transition to oral medications for hopeful D/C. (3) Anxiety Current Visit: No Status: Acute Code(s): F41.9 - ANXIETY DISORDER, UNSPECIFIED SNOMED Code(s): 82298623 Comment: - Continue home medications. (4) Diabetes mellitus Current Visit: No Status: Acute Code(s): E11.9 - TYPE 2 DIABETES MELLITUS WITHOUT COMPLICATIONS SNOMED Code(s): 79735181 Comment: - Continue Glargine, Scheduled mealtime insulin and SSI - Very poorly controlled on admission. - A1c 13.2, due to poor insulin compliance and dietary indiscretions. (5) Gastroparesis Current Visit: No Status: Acute Code(s): K31.84 - GASTROPARESIS SNOMED Code(s): 179651116 Comment: - With chronic pain and nausea - Continue pain control and antiemetics. (6) Opioid use disorder Current Visit: No Status: Acute Priority: Medium Code(s): F11.99 - OPIOID USE, UNSP WITH UNSPECIFIED OPIOID-INDUCED DISORDER SNOMED Code(s): 7600828 Comment: - Continue home dose of suboxone. - Spread out dosing, can help with pain control - Will need pure opoid agonists in the short term. (7) DVT prophylaxis Current Visit: No Status: Acute Code(s): VSF4799 - SNOMED Code(s): 009527207 Comment: - Ab (8) Full code status Current Visit: No Status: Acute Code(s): Z78.9 - OTHER SPECIFIED HEALTH STATUS SNOMED Code(s): 319435807 Status and Disposition: Inpatient for pain control. Hopeful D/C in next couple days when transitioned to Oral pain medications.
[2020-02-25] MEDS: QUEtiapine TAB* 25 MG PO SCH (20:25)
[2020-02-25] MEDS: Atorvastatin* 20 MG TAB PO SCH (20:26)
[2020-02-25] MEDS: Lidocaine Patch REMOVE* 1 NOTE MISC SCH (20:32)
[2020-02-26] MEDS: HYDROmorphone INJ1* 1 MG/ML SYRINGE IV SLOW PU PRN ×4 (01:21→16:18)
[2020-02-26] MEDS: Insulin LISPRO* 1 UNITS UNIT SUBCUT SCH ×7 (08:14→21:50)
[2020-02-26] MEDS: Insulin GLARGINE(*) 1 UNITS UNIT SUBCUT SCH ×2 (09:35→21:49)
[2020-02-26] MEDS: Gabapentin CAP(*) 300 MG PO SCH ×3 (09:36→21:48)
[2020-02-26] MEDS: Topiramate TAB(*) 25 MG PO SCH ×2 (09:36→21:47)
[2020-02-26] MEDS: Pantoprazole TAB * 40 MG TAB PO SCH (09:36)
[2020-02-26] MEDS: Apixaban* 5 MG TAB PO SCH ×2 (09:36→21:47)
[2020-02-26] MEDS: cloNIDine TAB* 0.1 MG PO SCH ×3 (09:37→21:49)
[2020-02-26] MEDS: Buprenorp/Nalox 8-2 MG FILM SL FILM SCH ×3 (09:37→21:49)
[2020-02-26] MEDS: Lidocaine PATCH 5%* 1 PATCH TRANSDERM SCH (09:37)
[2020-02-26] MEDS: Bethanechol TAB* 25 MG PO SCH ×4 (09:37→21:49)
[2020-02-26] MEDS: Acetaminophen TAB* 325 MG PO SCH ×2 (10:48→17:33)
[2020-02-26] MEDS: Ibuprofen TAB* 400 MG PO PRN (10:48)
[2020-02-26] MEDS: oxyCODONE TAB* 5 MG TAB PO PRN ×2 (12:48→21:48)
--- NOTE | 2020-02-26 15:42 | PN ---
Subjective Date of Service: 02/26/20 Interval History: Patient has improving pain in her chest. Patient denies SOB, N/V, abdominal pain , diarrhea, F/C, dysuria, or other pain. Family History: Unchanged from Admission Social History: Unchanged from Admission Past Medical History: Unchanged from Admission Objective Active Medications: Acetaminophen (Tylenol Tab*) 975 mg PO Q8H [facility] Last Admin: 02/26/20 10:48 Dose: 975 mg Apixaban (Eliquis*) 10 mg PO BID [facility] Stop: 02/29/20 09:01 Last Admin: 02/26/20 09:36 Dose: 10 mg Atorvastatin Calcium (Lipitor*) 20 mg PO BEDTIME [facility] Last Admin: 02/25/20 20:26 Dose: 20 mg Bethanechol Chloride (Urecholine Tab*) 25 mg PO QID [facility] Last Admin: 02/26/20 14:57 Dose: 25 mg Buprenorphine/Naloxone (Suboxone 8 Mg-2 Mg Sl Film) 1 each SL FILM TID [facility] Last Admin: 02/26/20 14:57 Dose: 1 each Clonidine HCl (Catapres Tab*) 0.1 mg PO TID [facility] Last Admin: 02/26/20 14:56 Dose: 0.1 mg Cyclobenzaprine HCl (Flexeril Tab*) 5 mg PO TID PRN PRN Reason: SPASMS - MUSCLE Dextrose (D50w Syringe 50 Ml*) 12.5 gm IV PUSH .FOR FS < 60 - SS PRN PRN Reason: FS < 60 Gabapentin (Neurontin Cap(*)) 600 mg PO TID [facility] Last Admin: 02/26/20 14:56 Dose: 600 mg Hydromorphone HCl (Dilaudid Inj1s*) 1 mg IV SLOW PU Q4H PRN PRN Reason: PAIN - SEVERE Ibuprofen (Motrin Tab*) 400 mg PO Q6H PRN PRN Reason: PAIN - MODERATE Last Admin: 02/26/20 10:48 Dose: 400 mg Insulin Glargine (Lantus(*)) 40 units SUBCUT BID [facility] Last Admin: 02/26/20 09:35 Dose: 40 units Insulin Human Lispro (Humalog*) 0 units SUBCUT ACHS [facility]; Protocol Last Admin: 02/26/20 12:49 Dose: 3 units Insulin Human Lispro (Humalog*) 10 units SUBCUT AC [facility] Last Admin: 02/26/20 12:49 Dose: 10 units Lidocaine (Lidoderm 5% Patch*) 1 patch TRANSDERM DAILY [facility] Last Admin: 02/26/20 09:37 Dose: 1 patch Ondansetron HCl (Zofran Inj*) 4 mg IV Q6H PRN PRN Reason: NAUSEA Oxycodone HCl (Roxycodone Tab*) 10 mg PO Q4H PRN PRN Reason: PAIN - MODERATE Last Admin: 02/26/20 12:48 Dose: 10 mg Pantoprazole Sodium (Protonix Tab*) 40 mg PO DAILY [facility] Last Admin: 02/26/20 09:36 Dose: 40 mg Pharmacy Profile Note (Lidocaine Patch Remove*) 1 note N/A 2100 [facility] Last Admin: 02/25/20 20:32 Dose: 1 note Promethazine HCl (Phenergan 25 Mg Tab) 25 mg PO Q8H PRN PRN Reason: NAUSEA Quetiapine Fumarate (Seroquel Tab*) 25 mg PO BEDTIME [facility] Last Admin: 02/25/20 20:25 Dose: 25 mg Topiramate (Topamax(*)) 50 mg PO BID [facility] Last Admin: 02/26/20 09:36 Dose: 50 mg Vital Signs - 8 hr 02/26/20 02/26/20 02/26/20 09:36 09:38 09:51 Temperature Pulse Rate Respiratory 18 20 16 Rate Blood Pressure (mmHg) O2 Sat by Pulse Oximetry 02/26/20 02/26/20 02/26/20 10:49 11:35 11:50 Temperature 97.1 F Pulse Rate 83 Respiratory 16 16 16 Rate Blood Pressure 125/70 (mmHg) O2 Sat by Pulse 98 Oximetry 02/26/20 02/26/20 02/26/20 12:48 14:56 15:19 Temperature Pulse Rate Respiratory 16 16 18 Rate Blood Pressure (mmHg) O2 Sat by Pulse Oximetry Oxygen Devices in Use Now: None Appearance: Patient is a 54yo female who appears stated age and is sitting in the bed in NAD. Eyes: No Scleral Icterus, PERRLA Ears/Nose/Mouth/Throat: NL Teeth, Lips, Gums, Clear Oropharnyx, Mucous Membranes Moist Neck: NL Appearance and Movements; NL JVP, Trachea Midline Respiratory: Symmetrical Chest Expansion and Respiratory Effort, Clear to Auscultation Cardiovascular: NL Sounds; No Murmurs; No JVD, RRR, No Edema Abdominal: NL Sounds; No Tenderness; No Distention, No Hepatosplenomegaly Lymphatic: No Cervical Adenopathy Extremities: No Edema, No Clubbing, Cyanosis Skin: No Rash or Ulcers, No Nodules or Sclerosis Neurological: Alert and Oriented x 3, NL Sensation, NL Muscle Strength and Tone , - - CN II-XII intact Result Diagrams: 02/23/20 05:20 02/23/20 05:19 Assess/Plan/Problems-Billing Assessment: 54 year old woman with recurrent PE, chest pain, opiate use disorder - Patient Problems (1) Pulmonary embolism Current Visit: No Status: Acute Priority: High Code(s): I26.99 - OTHER PULMONARY EMBOLISM WITHOUT ACUTE COR PULMONALE SNOMED Code(s): 84773437 Comment: - Acute unprovoked PE in January 2019, recurrent on this admission - 2 unprovoked PEs, may need indefinite anticoagulation. - We have started back on Eliquis 10 BID for 7 days - Will have outpatient hematology consult - Remain in hospital for pain control, monitoring - Still severe pain for which there is no other probable cause. (2) Chest pain at rest Current Visit: Yes Status: Acute Priority: Medium Code(s): R07.9 - CHEST PAIN, UNSPECIFIED SNOMED Code(s): 3507327 Comment: - Pain appears to be due to PE, improving - Titrate IV dilaudid, find dose that overcomes blockade by buprenorphine - Attempt to transition to oral medications for hopeful D/C. (3) Anxiety Current Visit: No Status: Acute Code(s): F41.9 - ANXIETY DISORDER, UNSPECIFIED SNOMED Code(s): 26635450 Comment: - Continue home medications. (4) Diabetes mellitus Current Visit: No Status: Acute Code(s): E11.9 - TYPE 2 DIABETES MELLITUS WITHOUT COMPLICATIONS SNOMED Code(s): 16880202 Comment: - Continue Glargine, Scheduled mealtime insulin and SSI - Very poorly controlled on admission. - A1c 13.2, due to poor insulin compliance and dietary indiscretions. - Patient states she will try to do better (5) Gastroparesis Current Visit: No Status: Acute Code(s): K31.84 - GASTROPARESIS SNOMED Code(s): 402115307 Comment: - With chronic pain and nausea - Continue pain control and antiemetics. (6) Opioid use disorder Current Visit: No Status: Acute Priority: Medium Code(s): F11.99 - OPIOID USE, UNSP WITH UNSPECIFIED OPIOID-INDUCED DISORDER SNOMED Code(s): 9587576 Comment: - Continue home dose of suboxone. - Spread out dosing, can help with pain control - Will need pure opoid agonists in the short term. (7) DVT prophylaxis Current Visit: No Status: Acute Code(s): NDL4337 - SNOMED Code(s): 962475480 Comment: - Ab (8) Full code status Current Visit: No Status: Acute Code(s): Z78.9 - OTHER SPECIFIED HEALTH STATUS SNOMED Code(s): 206006077 Status and Disposition: Inpatient for pain control. Hopeful D/C in next couple days when transitioned to Oral pain medications.
[2020-02-26] MEDS: QUEtiapine TAB* 25 MG PO SCH (21:47)
[2020-02-26] MEDS: Atorvastatin* 20 MG TAB PO SCH (21:49)
[2020-02-26] MEDS: Lidocaine Patch REMOVE* 1 NOTE MISC SCH (22:18)
[2020-02-27] MEDS: Ibuprofen TAB* 400 MG PO PRN (00:09)
[2020-02-27] MEDS: HYDROmorphone INJ1* 1 MG/ML SYRINGE IV SLOW PU PRN ×2 (00:18→09:56)
[2020-02-27] MEDS: Acetaminophen TAB* 325 MG PO SCH ×2 (01:47→09:57)
[2020-02-27 08:16] VITALS: BP 141/69
[2020-02-27] MEDS: oxyCODONE TAB* 5 MG TAB PO PRN (08:26)
[2020-02-27] MEDS: Insulin GLARGINE(*) 1 UNITS UNIT SUBCUT SCH (08:26)
[2020-02-27] MEDS: Gabapentin CAP(*) 300 MG PO SCH (08:27)
[2020-02-27] MEDS: Topiramate TAB(*) 25 MG PO SCH (08:27)
[2020-02-27] MEDS: Pantoprazole TAB * 40 MG TAB PO SCH (08:27)
[2020-02-27] MEDS: cloNIDine TAB* 0.1 MG PO SCH (08:27)
[2020-02-27] MEDS: Bethanechol TAB* 25 MG PO SCH (08:27)
[2020-02-27] MEDS: Apixaban* 5 MG TAB PO SCH (08:28)
[2020-02-27] MEDS: Buprenorp/Nalox 8-2 MG FILM SL FILM SCH (08:28)
[2020-02-27] MEDS: Insulin LISPRO* 1 UNITS UNIT SUBCUT SCH ×2 (08:28)
[2020-02-27] MEDS: Lidocaine PATCH 5%* 1 PATCH TRANSDERM SCH (08:29)
--- NOTE | 2020-02-27 18:49 | DS ---
CC: Dr. Armen Goodman; Dr. Luis Mckeon * DISCHARGE SUMMARY: DATE OF ADMISSION: 02/22/20 DATE OF DISCHARGE: 02/27/20 PRIMARY CARE PROVIDER: Dr. Armen Goodman. MY ATTENDING WHILE IN THE HOSPITAL: Dr. Lisa Morse.* (DICTATED BY POLO DENNIS) BUSINESS PERFORMANCE SPECIALIST/ONCOLOGIST: The patient's outpatient self pay collector/oncologist has been Dr. Luis Mckeon. PRIMARY DISCHARGE DIAGNOSES: 1. Pulmonary embolism. 2. Severe chest pain. SECONDARY DISCHARGE DIAGNOSES: 1. Diabetes mellitus, type 2. 2. Hypertension. 3. Hyperlipidemia. 4. Gastroesophageal reflux disease. 5. Depression. 6. Anxiety. 7. History of opioid abuse, on chronic Suboxone therapy. 8. Gastroparesis. 9. Chronic constipation. STUDIES DONE WHILE IN THE HOSPITAL: Chest and thorax CTA from 02/22/20 read as acute pulmonary embolism involving one of the segmental and subsegmental branches of the left lower lobe. Small ground-glass opacity measuring 2 mm x 5 mm in the right middle lobe lingula puts the patient at low risk. No routine followup is indicated. For patients at high risk, consider optional CT at 12 months. Transthoracic echocardiogram on 02/22/20 read as unchanged since September 2017. Cavity size is lower limits of normal. Systolic function is normal. Estimated ejection fraction is 60% to 65% hypokinesis of the basal inferolateral and inferior myocardium consistent with diastolic dysfunction. MEDICATIONS AT DISCHARGE: 1. Gabapentin 600 mg p.o. t.i.d. 2. Promethazine 25 mg q.8 hours as needed. 3. Cyclobenzaprine 5 mg p.o. t.i.d. as needed. 4. Quetiapine 25 mg p.o. at bedtime. 5. Lispro 10 units subcutaneous t.i.d. at meals. 6. Lipitor 20 mg p.o. at bedtime. 7. Amlodipine 10 mg p.o. daily. 8. Pantoprazole 40 mg p.o. daily. 9. Topiramate 50 mg b.i.d. 10. Urecholine 25 mg p.o. 4 times a day. 11. Buprenorphine 1 tab p.o. t.i.d. 12. Clonidine 0.1 mg p.o. t.i.d. 13. Lisinopril 10 mg p.o. daily. 14. Insulin glargine 50 units subcutaneous b.i.d. 15. Lidocaine patch 1 patch transdermal daily. 16. Tylenol 975 mg q.8 hours as scheduled. 17. Eliquis 10 mg p.o. b.i.d. x4 doses, then 5 mg p.o. b.i.d. ongoing. 18. Ibuprofen 400 mg p.o. q.6 hours as needed for pain. 19. Oxycodone 10 mg p.o. q.4 hours as needed for severe pain, sixty 5 mg tabs dispensed. New medications on discharge: 1. Eliquis. 2. Ibuprofen. 3. Oxycodone. Medications discontinued at discharge: 1. Amlodipine 10 mg p.o. daily. HOSPITAL COURSE: This is a brief summary of the patient's presentation. For more details, please see history and physical from this author on 02/22/20. In brief, the patient is a 54-year-old female with past medical history significant for previous unprovoked pulmonary embolism in January 2019 who was feeling in her own self health when she fell off the couch 6 days prior to her arrival and had immediate moderate right-sided chest pain worse with movement. The patient came to the emergency department, had a chest x-ray that was negative for rib fractures; however, her chest pain began to increase more significantly for the next 6 days and she came back to the emergency department as the pain was severe and intolerable. She at that time was found to have a pulmonary embolism as above. The patient was started on Eliquis b.i.d. The patient needed initially high doses of Dilaudid and oxycodone to control her pain. The patient initially also had a glucose at 551 which was able to be brought under control with her home dosing of insulin. The patient had a hemoglobin A1c of 13.1. This was discussed with the patient and she stated that she had not been doing very well with her diet or her insulin at home due to stress from taking care of her and grandchildren. The patient's chest pain improved slowly over the course of several days. However, given the patient's Suboxone therapy, her pain was difficult to control and she is difficult to wean off of IV pain medication. The patient on 02/27/20 stated that her pain was able to be well controlled with oxycodone and that she needed to get home to her . The patient had hypotension initially upon her admission likely related to her pain medication and her opiate dosing. The patient's amlodipine and lisinopril were held and her clonidine was continued. The patient's blood pressure returned to the normal range on just clonidine and started to become somewhat hypertensive by the end of her hospitalization. The patient's lisinopril was resumed, but her amlodipine remained held at the time of her discharge. The patient was stable enough to be discharge on 02/27/20. PHYSICAL EXAMINATION ON DISCHARGE: General: The patient is a 54-year-old male who appears stated age and sitting comfortably in bed, in no acute distress. Vital Signs: At the time of evaluation, temperature 97.3, pulse rate 71, respiratory rate 16, oxygen saturation 100% on room air, blood pressure 141/69. HEENT: Normocephalic, atraumatic. Sclerae are anicteric. No conjunctival injection. Nasal mucosa moist. Oral mucosa moist. No pharyngeal erythema, discharge, or exudate. Neck: Supple, nontender. No lymphadenopathy. No carotid bruits auscultated. No JVD. Cardiac: Regular rate and rhythm. No clicks, murmurs, gallops, or rubs. Pulses 2+ in dorsalis pedis, posterior tibialis, and radial areas. Respiratory: Clear to auscultation bilaterally. No wheezes, rales, or rhonchi. Good air exchange bilaterally. Abdomen: Soft, nontender, and nondistended. Bowel sounds present, normoactive in all 4 quadrants. No hepatosplenomegaly. No abdominal bruits auscultated. No hepatojugular reflex. Genitourinary: No suprapubic or CVA tenderness. Skin: Clean, dry, and intact. Neuro: Cranial nerves II through XII are intact. No focal deficits. Alert and oriented x3. Psychiatric: Pleasant and cooperative. DISCHARGE PLAN BY PROBLEM: 1. Acute pulmonary embolism. The patient will be treated with Eliquis for her acute pulmonary embolism as there is second unprovoked pulmonary embolism and likely would be eligible for lifelong anticoagulation; however, the patient already had a followup appointment with Dr. Mckeon to discuss her unprovoked pulmonary emboli and this should be continued. The patient has 4 more doses of 10 mg b.i.d. of Eliquis and then will be dropped to maintenance dose of 5 mg p.o. b.i.d. 2. Chest pain. The patient's chest pain had no other obvious cause on imaging except for pulmonary embolism. The patient's pain was improving. At the time of her admission, the patient usually used Tylenol, ibuprofen, and oxycodone to control her pain. The patient should follow up with her primary care provider in 1 week to reassess her pain level and provide additional . The patient has been continued on buprenorphine to avoid opiate withdrawal and dysphoria while she was in the hospital. 3. Diabetes mellitus type 2. The patient's hemoglobin A1c was 13, though her blood glucose was very easily controlled in the hospital on a reduced dose of her home glargine and then scheduled insulin with meals. The patient has been encouraged to resume this, though her diet at home is likely less and will likely be more poorly controlled than in the hospital. If the patient continues to have high hemoglobin A1c's with difficult to control diabetes, following up with Endocrinology should be considered. 4. History of opioid abuse, chronic pain. Continue the patient's gabapentin and Suboxone. 5. Anxiety and depression. Continue the patient's home medications. 6. Hypertension. Continue the patient's clonidine and lisinopril. Hold the patient's amlodipine until further reassessment through her primary care provider can be performed. CONDITION: Stable. DISPOSITION: Home. TIME SPENT: Approximately 60 minutes was spent on discharge of this patient, 30 of which was spent [id number] with the patient discussing treatment plan. POLO DENNIS [id number]/DK #: [id number] KYLE
[2020-02-27] MEDS ORDERED: Insulin GLARGINE(*) 1 UNITS UNIT SUBCUT SCH (21:00)
== END 2020-02-27 12:20 | disposition home or self-care (01) | DRG 134 ==
LOC: ED 19:25 → MEDTELE 23:08 → OBSVTOIN 02-23 11:00
PROVIDERS: ADMIT Hospitalist; ATTEND Hospitalist
DX: I26.99 Other pulmonary embolism without acute cor pulmonale (principal); E11.43 Type 2 diabetes mellitus with diabetic autonomic (poly)neuropathy; E11.65 Type 2 diabetes mellitus with hyperglycemia; K31.84 Gastroparesis; R07.9 Chest pain, unspecified; I10 Essential (primary) hypertension; E78.5 Hyperlipidemia, unspecified; K21.9 Gastro-esophageal reflux disease without esophagitis; F32.9 Major depressive disorder, single episode, unspecified; F41.9 Anxiety disorder, unspecified; K59.09 Other constipation; F11.11 Opioid abuse, in remission; Z79.4 Long term (current) use of insulin; Z79.899 Other long term (current) drug therapy; Z88.0 Allergy status to penicillin; Z88.2 Allergy status to sulfonamides; Z88.8 Allergy status to other drugs, medicaments and biological substances; Z80.0 Family history of malignant neoplasm of digestive organs; Z81.1 Family history of alcohol abuse and dependence; Z81.8 Family history of other mental and behavioral disorders; Z82.49 Family history of ischemic heart disease and other diseases of the circulatory system
CPT/HCPCS: 36415; 71275; 80048; 80053; 83036; 83735; 84484; 85025; 85379; 93005; 93306; 99285; A9270-GY; J1170; J2270; Q9967